=== PATIENT | female | born 1990 | race Caucasian/White ===

== ENCOUNTER 2016-11-18 17:09 | Emergency (ER) | payer OTHER, SELFPAY ==
--- NOTE | 2016-11-18 18:05 | ERPHSYRPT ---
- History of Present Illness Time Seen by Provider: 11/18/16 18:00 Source: patient, family Exam Limitations: no limitations Patient Subjective Stated Complaint: HEADACHE FOR 2 DAYS Triage Nursing Assessment: STATES HAS HAD A LT SIDE HEADACHE FOR 2 DAYS. NAUSEA WITH NO VOMITING. PHOTOSENSITIVITY.POOR APPETITE DUE TO PAIN Physician History: The patient is a 26-year-old female with a history of migraine headaches complaining of a left-sided headache for about 2 days. She's been taking ibuprofen without relief and this morning tried Imitrex without relief. She is nauseated but not vomiting. She says light bothers her. She has no numbness or tingling in the extremities. She had no visual disturbances prior to the headache. Timing/Duration: day(s) (2) Quality: throbbing Head Pain Location: temporal (left), parietal (left) Severity of Pain-Max: moderate Severity of Pain-Current: moderate Recent Head Trauma: occasional headaches Modifying Factors: Improves With: exposure to light, medication Associated Symptoms: sensitive to light Previous symptoms: same symptoms as today Allergies/Adverse Reactions: latex Allergy (Severe, Verified 11/18/16 17:15) STOPPED BREATHING aspirin Adverse Reaction (Mild, Verified 11/18/16 17:15) Vomiting medidate Adverse Reaction (Mild, Uncoded 11/18/16 17:15) VOMTIING Home Medications: Bupropion HCl Xl 150 mg [Wellbutrin XL 150 MG] 150 mg PO DAILY 11/18/16 [ History] Desogestrel-Ethinyl Estradiol [Apri 28 Day Tablet] 1 each PO UD 11/18/16 [ History] Sumatriptan Succinate [Imitrex 50 mg] 50 mg PO UD 11/18/16 [History] Thyroid,Pork [[place] Thyroid] 45 mg PO DAILY 11/18/16 [History] Trazodone HCl 100 mg PO HS 11/18/16 [History] Hx Tetanus, Diphtheria Vaccination/Date Given: Yes Hx Influenza Vaccination/Date Given: No Hx Pneumococcal Vaccination/Date Given: No Immunizations Up to Date: Yes - Review of Systems Constitutional: No Fever, No Chills Eyes: Photophobia Ears, Nose, & Throat: No Symptoms Respiratory: No Cough, No Dyspnea Cardiac: No Chest Pain, No Edema, No Syncope Abdominal/Gastrointestinal: Nausea Genitourinary Symptoms: No Dysuria Musculoskeletal: No Back Pain, No Neck Pain Skin: No Rash Neurological: Headache, No Dizziness, No Focal Weakness, No Sensory Changes Psychological: No Symptoms Endocrine: No Symptoms Hematologic/Lymphatic: No Symptoms Immunological/Allergic: No Symptoms All Other Systems: Reviewed and Negative - Past Medical History Pertinent Past Medical History: Yes Neurological History: Migraines ENT History: No Pertinent History Cardiac History: Arrhythmia, Other Respiratory History: Asthma Endocrine Medical History: Hypothyroidism Musculoskeletal History: No Pertinent History GI Medical History: No Pertinent History History: No Pertinent History Psycho-Social History: Attention Deficit Disorder Female Reproductive Disorders: No Pertinent History Other Medical History: BRADYCARDIA(SEES DR. JAYSON CHANEL) - Past Surgical History Past Surgical History: Yes Neuro Surgical History: No Pertinent History Cardiac: No Pertinent History Respiratory: No Pertinent History Gastrointestinal: No Pertinent History Genitourinary: No Pertinent History Female Surgical History: Section - Social History Smoking Status: Never smoker Exposure to second hand smoke: No Drug Use: none Patient Lives Alone: No - Female History Hx Last Menstrual Period: 10/21/2017 - Nursing Vital Signs Nursing Vital Signs: Initial Vital Signs Temperature 97.5 F Temperature Source Oral Pulse Rate 74 Respiratory Rate 18 Blood Pressure [Right Arm] 122/83 Pain Intensity 7 - Physical Exam General Appearance: mild distress Eye Exam: PERRL/EOMI, photophobia Ears, Nose, Throat Exam: normal ENT inspection, moist mucous membranes Neck Exam: normal inspection, supple, full range of motion, No meningismus Respiratory Exam: normal breath sounds, lungs clear Cardiovascular Exam: regular rate/rhythm, normal heart sounds Gastrointestinal/Abdominal Exam: soft, No tenderness, No distention Back Exam: normal inspection, normal range of motion Extremity Exam: normal inspection Mental Status Exam: alert, oriented x 3, cooperative 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 hot 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 Exam: normal hearing, normal speech, PERRL, No facial droop Coordination/Gait Exam: normal cerebellar function Motor/Sensory Exam: no motor deficit, no sensory deficit Skin Exam: normal color, warm, dry, No rash SpO2 Interpretation: normal Ordered Tests: Medication Summary Discontinued Medications Generic Name Dose Route Start Last Admin Trade Name Freq PRN Reason Stop Dose Admin Ketorolac Tromethamine 60 mg 11/18/16 18:07 11/18/16 18:12 Toradol 30 Mg Injection IM 11/18/16 18:08 60 mg STAT ONE Administration Ketorolac Tromethamine Confirm 11/18/16 18:11 Toradol 30 Mg Injection Administered 11/18/16 18:12 Dose 60 mg .ROUTE .STK-MED ONE Promethazine HCl 50 mg 11/18/16 18:08 11/18/16 18:12 Phenergan 25 Mg Inj IM 11/18/16 18:09 50 mg STAT ONE Administration Promethazine HCl Confirm 11/18/16 18:11 Phenergan 25 Mg Inj Administered 11/18/16 18:12 Dose 50 mg .ROUTE .STK-MED ONE - Progress Progress: improved Air Movement: fair Counseled pt/family regarding: diagnosis, need for follow-up - Departure Time of Disposition: 18:46 Departure Disposition: Home Clinical Impression: Migraine headache Condition: Stable Critical Care Time: No Instructions: Headache
[2016-11-18] MEDS ORDERED: TORAdol 30 mg Injection IM ONE (18:07)
[2016-11-18] MEDS ORDERED: Phenergan 25 MG INJ IM ONE (18:08)
[2016-11-18] MEDS ORDERED: Phenergan 25 MG INJ ONE (18:11)
[2016-11-18] MEDS ORDERED: TORAdol 30 mg Injection ONE (18:11)
[2016-11-18 18:50] VITALS: BP 123/48; PULSE 78
== END 2016-11-18 18:50 | disposition home or self-care (01) ==
LOC: ED 17:09
DX: G43.909 Migraine, unspecified, not intractable, without status migrainosus (principal); R11.0 Nausea; H53.8 Other visual disturbances
CPT/HCPCS: 96372; 99283; J1885; J2550

== ENCOUNTER 2017-02-14 17:37 | Emergency (ER) | payer OTHER, SELFPAY ==
[2017-02-14] MEDS ORDERED: MORPHINE SULFATE 2 MG INJ IV ONE (18:09)
[2017-02-14] MEDS ORDERED: Pepcid 20 MG VIAL IV ONE ×2 (18:09→18:17)
[2017-02-14] MEDS ORDERED: Zofran 4 MG/2 ML VIAL IV ONE (18:09)
[2017-02-14] MEDS ORDERED: MORPHINE SULFATE 2 MG INJ ONE (18:17)
[2017-02-14] MEDS ORDERED: Zofran 4 MG/2 ML VIAL ONE ×2 (18:17→18:21)
--- NOTE | 2017-02-14 18:22 | ERPHSYRPT ---
- History of Present Illness Time Seen by Provider: 02/14/17 18:16 Historian: patient Exam Limitations: no limitations Patient Subjective Stated Complaint: ruq abd for two days. also having some nausea. unable to eat without having pain Triage Nursing Assessment: ambulated to room per self holding ruq abd, crying. skin w/d, color normal, resp easy. abd soft, tender ruq Physician History: RUQ sharp, stabbing pain for past 2 days. States pain is intermittent and worsens with any food intake. Pt. with nausea but no vomiting or diarrhea. No fever, chills, dizziness or weakness. Tried Ibuprofen 800mg with minimal relief. LMP3 01/29/17. Denies any vag bleeding or discharge. Timing/Duration: day(s) (2) Activities at Onset: none Quality: sharpness, stabbing Abdominal Pain Onset Location: RUQ Pain Radiation: no radiation Severity of Pain-Max: moderate Severity of Pain-Current: moderate Modifying Factors: Improves With: eating (worsens) Associated Symptoms: nausea, No fever/chills, No shortness of breath, No vomiting Previous symptoms: no prior history Allergies/Adverse Reactions: latex Allergy (Severe, Verified 02/14/17 17:50) STOPPED BREATHING levothyroxine sodium [From Synthroid] Allergy (Verified 02/14/17 17:50) methylphenidate [From Ritalin] Allergy (Verified 02/14/17 17:50) aspirin Adverse Reaction (Mild, Verified 02/14/17 17:50) Vomiting medidate Adverse Reaction (Mild, Uncoded 11/18/16 17:15) VOMTIING Home Medications: Sumatriptan Succinate [Imitrex 50 mg] 50 mg PO UD 11/18/16 [History] Thyroid,Pork [[place] Thyroid] 60 mg PO DAILY 11/18/16 [History] Phentermine HCl [Adipex-P] 37.5 mg PO DAILY 02/14/17 [History] Hx Tetanus, Diphtheria Vaccination/Date Given: Yes Hx Influenza Vaccination/Date Given: No Hx Pneumococcal Vaccination/Date Given: No - Review of Systems Constitutional: No Fever, No Chills Eyes: No Symptoms Ears, Nose, & Throat: No Symptoms Respiratory: No Cough, No Dyspnea Cardiac: No Chest Pain, No Edema, No Syncope Abdominal/Gastrointestinal: Abdominal Pain, Nausea, No Vomiting, No Diarrhea Genitourinary Symptoms: No Dysuria Musculoskeletal: No Back Pain, No Neck Pain Skin: No Rash Neurological: No Dizziness, No Focal Weakness, No Sensory Changes Psychological: No Symptoms Endocrine: No Symptoms All Other Systems: Reviewed and Negative - Past Medical History Pertinent Past Medical History: Yes Neurological History: Migraines ENT History: No Pertinent History Cardiac History: Arrhythmia, Other Respiratory History: Asthma Endocrine Medical History: Hypothyroidism Musculoskeletal History: No Pertinent History GI Medical History: No Pertinent History History: No Pertinent History Psycho-Social History: Attention Deficit Disorder Female Reproductive Disorders: No Pertinent History Other Medical History: BRADYCARDIA(SEES DR. JAYSON CHANEL) - Past Surgical History Past Surgical History: Yes Neuro Surgical History: No Pertinent History Cardiac: No Pertinent History Respiratory: No Pertinent History Gastrointestinal: No Pertinent History Genitourinary: No Pertinent History Female Surgical History: Section - Social History Smoking Status: Never smoker Exposure to second hand smoke: No Drug Use: none Patient Lives Alone: No Significant Family History: cancer (colon/breast), diabetes, other (Gall bladder disease) - Female History Hx Last Menstrual Period: 01/29/17 Hx Now: No - Nursing Vital Signs Nursing Vital Signs: Initial Vital Signs Temperature 97.8 F Temperature Source Oral Pulse Rate 56 Respiratory Rate 16 Blood Pressure [Right Arm] 125/70 Pain Intensity 8 - Physical Exam General Appearance: no apparent distress, alert Eye Exam: PERRL/EOMI, eyes nml inspection Ears, Nose, Throat Exam: normal ENT inspection, pharynx normal, moist mucous membranes Neck Exam: normal inspection, non-tender, supple, full range of motion Respiratory Exam: normal breath sounds, lungs clear, No respiratory distress Cardiovascular Exam: regular rate/rhythm, normal heart sounds Gastrointestinal/Abdomen Exam: soft, normal bowel sounds, tenderness (RLQ), No mass, No guarding Pelvic Exam: not done Rectal Exam: deferred Back Exam: normal inspection, normal range of motion, No CVA tenderness, No vertebral tenderness Extremity Exam: normal inspection, normal range of motion, pelvis stable Neurologic Exam: alert, oriented x 3, cooperative, normal mood/affect, nml cerebellar function, sensation nml, No motor deficits Skin Exam: normal color, warm, dry SpO2: 100 Oxygen Delivery: Room Air - Course Nursing assessment & vital signs reviewed: Yes - Radiology Exams Abdomen X-ray Interpretation: Interpreted by me, Negative Ordered Tests: Active Orders 24 hr Category Date Time Status IV Insertion STAT Care 02/14/17 18:09 Active OBSTR/ACUTE ABDOMEN SERIES Stat Exams 02/14/17 18:11 Ordered AMYLASE Stat Lab 02/14/17 18:15 Completed CBC W DIFF Stat Lab 02/14/17 18:15 Completed CMP Stat Lab 02/14/17 18:15 Completed HCG QUALITATIVE,SERUM Stat Lab 02/14/17 18:15 Completed LIPASE Stat Lab 02/14/17 18:15 Completed UA Stat Lab 02/14/17 19:05 Completed Medication Summary Generic Name Dose Route Start Last Admin Trade Name Freq PRN Reason Stop Dose Admin Sodium Chloride 1,000 mls @ 999 mls/hr 02/14/17 18:25 02/14/17 18:34 Sodium Chloride 0.9% 1000 Ml IV 02/14/17 19:25 999 mls/hr .Q1H1M STA Administration Discontinued Medications Generic Name Dose Route Start Last Admin Trade Name Freq PRN Reason Stop Dose Admin Famotidine 20 mg 02/14/17 18:09 02/14/17 18:24 Pepcid 20 Mg Vial IV 02/14/17 18:10 20 mg STAT ONE Administration Famotidine Confirm 02/14/17 18:17 Pepcid 20 Mg Vial Administered 02/14/17 18:18 Dose 20 mg IV .STK-MED ONE Hydromorphone HCl 1 mg 02/14/17 19:09 Hydromorphone 1 Mg/Ml Ampule IV 02/14/17 19:10 STAT ONE Sodium Chloride Confirm 02/14/17 18:33 Sodium Chloride 0.9% 1000 Ml Administered 02/14/17 18:34 Dose 1,000 mls @ ud .ROUTE .STK-MED ONE Morphine Sulfate 2 mg 02/14/17 18:09 02/14/17 18:23 Morphine Sulfate 2 Mg Inj IV 02/14/17 18:10 2 mg STAT ONE Administration Morphine Sulfate Confirm 02/14/17 18:17 Morphine Sulfate 2 Mg Inj Administered 02/14/17 18:18 Dose 2 mg .ROUTE .STK-MED ONE Ondansetron HCl 4 mg 02/14/17 18:09 02/14/17 18:24 Zofran 4 Mg/2 Ml Vial IV 02/14/17 18:10 4 mg STAT ONE Administration Ondansetron HCl Confirm 02/14/17 18:17 Zofran 4 Mg/2 Ml Vial Administered 02/14/17 18:18 Dose 4 mg .ROUTE .STK-MED ONE Ondansetron HCl Confirm 02/14/17 18:21 Zofran 4 Mg/2 Ml Vial Administered 02/14/17 18:22 Dose 4 mg .ROUTE .STK-MED ONE Lab/Rad Data: Laboratory Result Diagrams 02/14/17 18:15 02/14/17 18:15 Laboratory Results 02/14/17 02/14/17 02/14/17 Range/Units 19:05 18:15 18:15 WBC (4.0-10.5) K/mm3 RBC (4.1-5.4) M/mm3 Hgb (12.0-16.0) gm/dl Hct (35-47) % MCV (78-100) fl MCH (26-32) pg MCHC (32-36) g/dl RDW (11.5-14.0) % Plt Count (150-450) K/mm3 MPV (6-9.5) fl Gran % (36.0-66.0) % Lymphocytes % (24.0-44.0) % Monocytes % (0.0-12.0) % Eosinophils % (0.00-5.0) % Basophils % (0.0-0.4) % Basophils # (0-0.4) Sodium 141 (136-145) mEq/L Potassium 3.4 L (3.5-5.1) mEq/L Chloride 108 H (98-107) mEq/L Carbon Dioxide 23.1 (21-32) mEq/L Anion Gap 12.9 (5-15) MEQ/L BUN 5 L (9-20) mg/dL Creatinine 0.98 (0.55-1.30) mg/dl Estimated GFR > 60 ML/MIN Glucose 93 (70-110) MG/DL Calcium 8.8 (8.5-10.1) mg/dL Total Bilirubin 0.2 (0.2-1.0) mg/dL AST 22 (15-37) U/L ALT 31 (12-78) U/L Alkaline Phosphatase 58 (46-116) U/L Serum Total Protein 7.0 (6.4-8.2) gm/dL Albumin 3.4 (3.4-5.0) g/dL Amylase 29 (25-115) U/L Lipase 104 (73-393) U/L Serum , Qual NEGATIVE (Negative) Ur Collection Type CLEAN CATCH Urine Color YELLOW (YELLOW) Urine Appearance CLEAR (CLEAR) Urine pH 7.0 (5-6) Ur Specific [place] 1.015 (1.005-1.025) Urine Protein NEGATIVE (Negative) Urine Glucose (UA) NEGATIVE (NEGATIVE) mg/dL Urine Ketones NEGATIVE (NEGATIVE) Urine Nitrite NEGATIVE (NEGATIVE) Urine Bilirubin NEGATIVE (NEGATIVE) Urine Urobilinogen 0.2 (0-1) mg/dL Urine WBC (Auto) NEGATIVE (NEGATIVE) Urine RBC (Auto) NEGATIVE (0-5) Re[place]undo/ul Specimen Received 02/14/17:1905 02/14/17 Range/Units 18:15 WBC 9.4 (4.0-10.5) K/mm3 RBC 5.20 (4.1-5.4) M/mm3 Hgb 13.4 (12.0-16.0) gm/dl Hct 40.9 (35-47) % MCV 78.7 (78-100) fl MCH 25.8 L (26-32) pg MCHC 32.8 (32-36) g/dl RDW 13.5 (11.5-14.0) % Plt Count 252 (150-450) K/mm3 MPV 10.3 H (6-9.5) fl Gran % 78.4 H (36.0-66.0) % Lymphocytes % 14.1 L (24.0-44.0) % Monocytes % 7.3 (0.0-12.0) % Eosinophils % 0.1 (0.00-5.0) % Basophils % 0.1 (0.0-0.4) % Basophils # 0.01 (0-0.4) Sodium (136-145) mEq/L Potassium (3.5-5.1) mEq/L Chloride (98-107) mEq/L Carbon Dioxide (21-32) mEq/L Anion Gap (5-15) MEQ/L BUN (9-20) mg/dL Creatinine (0.55-1.30) mg/dl Estimated GFR ML/MIN Glucose (70-110) MG/DL Calcium (8.5-10.1) mg/dL Total Bilirubin (0.2-1.0) mg/dL AST (15-37) U/L ALT (12-78) U/L Alkaline Phosphatase (46-116) U/L Serum Total Protein (6.4-8.2) gm/dL Albumin (3.4-5.0) g/dL Amylase (25-115) U/L Lipase (73-393) U/L Serum , Qual (Negative) Ur Collection Type Urine Color (YELLOW) Urine Appearance (CLEAR) Urine pH (5-6) Ur Specific [place] (1.005-1.025) Urine Protein (Negative) Urine Glucose (UA) (NEGATIVE) mg/dL Urine Ketones (NEGATIVE) Urine Nitrite (NEGATIVE) Urine Bilirubin (NEGATIVE) Urine Urobilinogen (0-1) mg/dL Urine WBC (Auto) (NEGATIVE) Urine RBC (Auto) (0-5) Reymundo/ul Specimen Received - Progress Progress: improved Progress Note: 02/14/17 19:15 Pt. given Morphine, Pepcid and Zofran that provided some relief. Pt given Dilaudid with good relief of abd pain. Counseled pt/family regarding: lab results, diagnosis, rad results - Departure Time of Disposition: 19:39 Departure Disposition: Home Clinical Impression: Abdominal pain Condition: Stable Critical Care Time: No Instructions: Abdominal Pain-Adult Additional Instructions: [place] diet, no greasy, fatty or fried foods RX: Pepcid, [place], Zofran Return for worse abdominal pain, fever, vomiting or any problems. Prescriptions: Hydrocodone Bit/Acetaminophen [[place] 5-325 Tablet] 1 each PO Q6H PRN PRN #12 tablet PRN Reason: Pain Ondansetron [Zofran Odt] 4 mg PO Q6H PRN PRN #10 tab.rapdis PRN Reason: Nausea/Vomiting Famotidine 20 mg [Pepcid 20 MG] 20 mg PO BID #20 tablet
[2017-02-14] MEDS ORDERED: Sodium Chloride 0.9% 1000 ML 1,000 ML IV STA (18:25)
[2017-02-14 18:28] LABS: BASOPHIL % 0.1 % (0.0-0.4); Eosinophil % 0.1 % (0.00-5.0); Granulocytes % 78.4 % (36.0-66.0); Lymphocytes % 14.1 % (24.0-44.0); Mean Cell Volume 78.7 fl (78-100); Mean Corpuscular Hemoglobin 25.8 pg (26-32); Mean Platelet Volume 10.3 fl (6-9.5); Monocytes % 7.3 % (0.0-12.0); Platelet Count 252 K/mm3 (150-450); Red Cell Distribution Width 13.5 % (11.5-14.0); White Blood Count 9.4 K/mm3 (4.0-10.5)
[2017-02-14] MEDS ORDERED: Sodium Chloride 0.9% 1000 ML 1,000 ML ONE (18:33)
[2017-02-14 18:47] LABS: ALBUMIN 3.4 g/dL (3.4-5.0); ALKALINE PHOSPHATASE 58 U/L (46-116); ANION GAP 12.9 MEQ/L (5-15); BILIRUBIN,TOTAL 0.2 mg/dL (0.2-1.0); BLOOD UREA NITROGEN 5 mg/dL (9-20); CHLORIDE 108 mEq/L (98-107); Carbon Dioxide 23.1 mEq/L (21-32); Glucose 93 MG/DL (70-110); LIPASE 104 U/L (73-393); Potassium 3.4 mEq/L (3.5-5.1); SGOT/AST 22 U/L (15-37); SGPT/ALT 31 U/L (12-78); SODIUM 141 mEq/L (136-145)
[2017-02-14] MEDS ORDERED: Hydromorphone 1 mg/ml Ampule IV ONE (19:09)
[2017-02-14] MEDS ORDERED: Hydromorphone 1 mg/ml Ampule ONE (19:12)
[2017-02-14 19:14] LABS: COMPLETE URINE MICROSCOPIC? NO; Collection Type CLEAN CATCH
[2017-02-14 19:57] VITALS: BP 144/72; PULSE 56; O2SAT 99
--- NOTE | 2017-02-15 08:54 | XRAY ---
Exam: Acute obstructive series from 02/14/2017. Comparison: CT of the chest with IV contrast from 09/25/[address] of the abdomen and pelvis without IV contrast from 06/16/2015. Indication: Right upper quadrant abdominal pain 2 days, history of . Findings: Upright frontal chest film reveals a normal heart size. The mayra and mediastinal structures appear unremarkable. The lung shields are clear. Pulmonary vascularity is normal. No pneumothorax, pleural fluid, or free intraperitoneal air underneath the hemidiaphragms seen. The bones appear intact. 2 supine images of the abdomen and upright image of the abdomen were obtained. The bowel gas pattern appears nonspecific. Mild to moderate colonic stool burden is seen. No bowel distention or free intraperitoneal air is seen. No hepatosplenomegaly is seen. Some costochondral calcification is seen adjacent to the lower anterior ribs bilaterally. There appears to be a partial transitional vertebra at the lumbosacral junction. The remainder of the bones appear unremarkable. Impression: 1. No acute cardiopulmonary disease is seen. 2. Nonobstructive bowel gas pattern with mild to moderate scattered colonic stool retention. No free intraperitoneal air is seen.
== END 2017-02-14 19:55 | disposition home or self-care (01) ==
LOC: ED 17:37
DX: R10.11 Right upper quadrant pain (principal); R11.0 Nausea
CPT/HCPCS: 36000; 36415; 74022; 80053; 81002; 82150; 83690; 84703; 85025; 96360; 96361; 96374; 96375; 99284; J1170; J2270; J2405

== ENCOUNTER 2017-02-15 16:14 | Observation (INO) | payer OTHER ==
[2017-02-15] MEDS ORDERED: Hydromorphone 1 mg/ml Ampule IV ONE ×2 (17:09→19:29)
[2017-02-15] MEDS ORDERED: Sodium Chloride 0.9% 1000 ML 1,000 ML IV STA (17:09)
[2017-02-15] MEDS ORDERED: BENADRYL 50 MG/ML IV ONE ×2 (17:09→19:29)
--- NOTE | 2017-02-15 17:15 | ERPHSYRPT ---
- History of Present Illness Time Seen by Provider: 02/15/17 17:03 Historian: patient Patient Subjective Stated Complaint: PT HERE FOR ABD PAIN, RIGHT SIDED FOR 4 DAYS, NAUSEA, NO VOMITING, NO PROBLEMS WITH BOWEL OR BLADDER NO FEVER Triage Nursing Assessment: PT WAS SEEN LAST NIGHT FOR SAME THING, AND HAS US OF GALLBLADDER THIS AM Physician History: CC: abd pain Hx: 26 y/o patient of Dr Maradiaga. She has 4 day hx of abd pain, right sided. N/ V. Unable to eat or drink. Pain severe. No fever. Normal urination. Was in ER yesterday with normal labs and AAS. She had negative GB sonogram as OP this AM. Came back as pain severe, sharp. Timing/Duration: day(s) (4) Severity of Pain-Max: severe Severity of Pain-Current: severe Allergies/Adverse Reactions: latex Allergy (Severe, Verified 02/15/17 16:29) STOPPED BREATHING levothyroxine sodium [From Synthroid] Allergy (Verified 02/15/17 16:29) methylphenidate [From Ritalin] Allergy (Verified 02/15/17 16:29) aspirin Adverse Reaction (Mild, Verified 02/15/17 16:29) Vomiting medidate Adverse Reaction (Mild, Uncoded 02/15/17 16:29) VOMTIING Home Medications: Sumatriptan Succinate [Imitrex 50 mg] 50 mg PO UD 11/18/16 [History] Thyroid,Pork [[place] Thyroid] 60 mg PO DAILY 11/18/16 [History] Phentermine HCl [Adipex-P] 37.5 mg PO DAILY 02/14/17 [History] Hx Tetanus, Diphtheria Vaccination/Date Given: Yes Hx Influenza Vaccination/Date Given: No Hx Pneumococcal Vaccination/Date Given: No Immunizations Up to Date: Yes - Review of Systems Constitutional: No Fever, No Chills Eyes: No Symptoms Ears, Nose, & Throat: No Symptoms Respiratory: No Cough Cardiac: No Chest Pain Abdominal/Gastrointestinal: Abdominal Pain, Nausea, Vomiting, No Diarrhea Genitourinary Symptoms: No Dysuria Musculoskeletal: No Back Pain Skin: No Rash Neurological: No Headache All Other Systems: Reviewed and Negative - Past Medical History Pertinent Past Medical History: Yes Neurological History: Migraines ENT History: No Pertinent History Cardiac History: Arrhythmia, Other Respiratory History: Asthma Endocrine Medical History: Hypothyroidism Musculoskeletal History: No Pertinent History GI Medical History: No Pertinent History History: No Pertinent History Psycho-Social History: Attention Deficit Disorder Female Reproductive Disorders: No Pertinent History Other Medical History: Bradycardia - Past Surgical History Past Surgical History: Yes Neuro Surgical History: No Pertinent History Cardiac: No Pertinent History Respiratory: No Pertinent History Gastrointestinal: No Pertinent History Genitourinary: No Pertinent History Female Surgical History: Section - Social History Smoking Status: Never smoker Exposure to second hand smoke: No Drug Use: none Patient Lives Alone: No Significant Family History: cancer (colon/breast), diabetes, other (Gall bladder disease) - Female History Hx Last Menstrual Period: JANUARY 29 Hx Now: No - Nursing Vital Signs Nursing Vital Signs: Initial Vital Signs Temperature 97.6 F Temperature Source Oral Pulse Rate 83 Respiratory Rate 18 Blood Pressure [] 131/71 Pain Intensity 7 - Physical Exam General Appearance: alert, obese, other (tearful and anxious) Eye Exam: PERRL/EOMI Ears, Nose, Throat Exam: normal ENT inspection, moist mucous membranes Neck Exam: normal inspection, non-tender, supple Respiratory Exam: normal breath sounds, lungs clear Cardiovascular Exam: regular rate/rhythm Gastrointestinal/Abdomen Exam: soft, tenderness (right), guarding (right) Extremity Exam: normal inspection, normal range of motion Neurologic Exam: alert, oriented x 3, cooperative, sensation nml, No motor deficits Skin Exam: warm, dry, No rash SpO2 Interpretation: normal SpO2: 99 - Course Nursing assessment & vital signs reviewed: Yes - CT Exams abd/pelvis CT Interpretation: Negative, Tele-radiologist Report, Normal Appendix Ordered Tests: Active Orders 24 hr Category Date Time Status IV Insertion STAT Care 02/15/17 17:09 Active NPO (ED) STAT Care 02/15/17 17:09 Active ABDOMEN AND PELVIS W CONTRAST [CT] Stat Exams 02/15/17 17:10 Taken CBC W DIFF Stat Lab 02/15/17 18:05 Completed CMP Stat Lab 02/15/17 17:29 Completed LIPASE Stat Lab 02/15/17 17:29 Completed Lactic Acid Urgent Lab 02/15/17 17:35 Completed Medication Summary Discontinued Medications Generic Name Dose Route Start Last Admin Trade Name Freq PRN Reason Stop Dose Admin Diphenhydramine HCl 25 mg 02/15/17 17:09 02/15/17 17:21 Benadryl 50 Mg/Ml IV 04/17/17 17:10 25 mg STAT ONE Administration Diphenhydramine HCl Confirm 02/15/17 17:16 Benadryl 50 Mg/Ml Administered 02/15/17 17:17 Dose 50 mg .ROUTE .STK-MED ONE Hydromorphone HCl 1 mg 02/15/17 17:09 02/15/17 17:21 Hydromorphone 1 Mg/Ml Ampule IV 02/15/17 17:10 1 mg STAT ONE Administration Hydromorphone HCl Confirm 02/15/17 17:16 Hydromorphone 1 Mg/Ml Ampule Administered 02/15/17 17:17 Dose 1 mg .ROUTE .STK-MED ONE Sodium Chloride 1,000 mls @ 999 mls/hr 02/15/17 17:09 02/15/17 17:21 Sodium Chloride 0.9% 1000 Ml IV 02/15/17 18:09 999 mls/hr .Q1H1M STA Administration Sodium Chloride Confirm 02/15/17 17:16 Sodium Chloride 0.9% 1000 Ml Administered 02/15/17 17:17 Dose 1,000 mls @ ud .ROUTE .STK-MED ONE Lab/Rad Data: Laboratory Result Diagrams 02/15/17 18:05 02/15/17 17:29 Laboratory Results 02/15/17 02/15/17 02/15/17 Range/Units 18:05 17:35 17:29 WBC 5.7 (4.0-10.5) K/mm3 RBC 4.62 (4.1-5.4) M/mm3 Hgb 12.0 (12.0-16.0) gm/dl Hct 37.6 (35-47) % MCV 81.4 (78-100) fl MCH 26.0 (26-32) pg MCHC 31.9 L (32-36) g/dl RDW 13.5 (11.5-14.0) % Plt Count 196 (150-450) K/mm3 MPV 10.1 H (6-9.5) fl Gran % 52.9 (36.0-66.0) % Lymphocytes % 37.9 (24.0-44.0) % Monocytes % 7.4 (0.0-12.0) % Eosinophils % 1.6 (0.00-5.0) % Basophils % 0.2 (0.0-0.4) % Basophils # 0.01 (0-0.4) Sodium 142 (136-145) mEq/L Potassium 3.1 L (3.5-5.1) mEq/L Chloride 106 (98-107) mEq/L Carbon Dioxide 25.3 (21-32) mEq/L Anion Gap 13.5 (5-15) MEQ/L BUN 9 (9-20) mg/dL Creatinine 0.82 (0.55-1.30) mg/dl Estimated GFR > 60 ML/MIN Glucose 92 (70-110) MG/DL Lactic Acid 1.2 (0.4-2.0) Calcium 8.2 L (8.5-10.1) mg/dL Total Bilirubin 0.2 (0.2-1.0) mg/dL AST 16 (15-37) U/L ALT 25 (12-78) U/L Alkaline Phosphatase 54 (46-116) U/L Serum Total Protein 6.3 L (6.4-8.2) gm/dL Albumin 3.0 L (3.4-5.0) g/dL Lipase 134 (73-393) U/L - Progress Progress Note: 02/15/17 17:[address] abd to rule out appendicitis. 02/15/17 18:52 CT, RUQ sonogram, labs reassuring. She is tearful and crying at times with some emotional overlay. Family here. She has appt with Dr Maradiaga already established for 9AM tomorrow. Paged Dr Maradiaga. 02/15/17 19:[address] Maradiaga. Apparently patient has been at other emergency rooms as well. He advised observation, NPO, consult surgeons. Counseled pt/family regarding: lab results, diagnosis, need for follow-up, rad results - Departure Time of Disposition: 19:29 Departure Disposition: Observation Clinical Impression: Right sided abdominal pain Condition: Fair Critical Care Time: No Referrals: YESICA MARADIAGA MD [Primary Care Provider] - Instructions: Abdominal Pain-Adult
[2017-02-15] MEDS ORDERED: Hydromorphone 1 mg/ml Ampule ONE ×2 (17:16→19:45)
[2017-02-15] MEDS ORDERED: Sodium Chloride 0.9% 1000 ML 1,000 ML ONE (17:16)
[2017-02-15] MEDS ORDERED: BENADRYL 50 MG/ML ONE ×2 (17:16→19:45)
[2017-02-15 17:47] LABS: ALKALINE PHOSPHATASE 54 U/L (46-116); ANION GAP 13.5 MEQ/L (5-15); BILIRUBIN,TOTAL 0.2 mg/dL (0.2-1.0); BLOOD UREA NITROGEN 9 mg/dL (9-20); CHLORIDE 106 mEq/L (98-107); Carbon Dioxide 25.3 mEq/L (21-32); Glucose 92 MG/DL (70-110); LIPASE 134 U/L (73-393); Potassium 3.1 mEq/L (3.5-5.1); SGOT/AST 16 U/L (15-37); SGPT/ALT 25 U/L (12-78); SODIUM 142 mEq/L (136-145); Total Protein 6.3 gm/dL (6.4-8.2)
[2017-02-15 18:08] LABS: BASOPHIL % 0.2 % (0.0-0.4); Eosinophil % 1.6 % (0.00-5.0); Granulocytes % 52.9 % (36.0-66.0); Lymphocytes % 37.9 % (24.0-44.0); Mean Cell Volume 81.4 fl (78-100); Mean Platelet Volume 10.1 fl (6-9.5); Monocytes % 7.4 % (0.0-12.0); Platelet Count 196 K/mm3 (150-450); Red Blood Count 4.62 M/mm3 (4.1-5.4); Red Cell Distribution Width 13.5 % (11.5-14.0); White Blood Count 5.7 K/mm3 (4.0-10.5)
[2017-02-15] MEDS: Dextrose 5%-Lr IV Solution 1000 ML 1,000 ML IV SCH (20:25)
[2017-02-15] MEDS: Pepcid 20 MG VIAL IV SCH (22:03)
[2017-02-15] MEDS: Klor Con 10 MEQ PO SCH (22:03)
[2017-02-15] MEDS ORDERED: PROVENTIL 2.5 MG/3 ML NEB IH PRN (22:49)
[2017-02-15] MEDS: MORPHINE SULFATE 2 MG INJ IV PRN (23:00)
[2017-02-15] MEDS: Zofran 4 MG/2 ML VIAL IV PRN (23:00)
[2017-02-16] MEDS: MORPHINE SULFATE 2 MG INJ IV PRN ×2 (03:13→09:03)
[2017-02-16] MEDS: NORCO 5/325 MG PO PRN (05:17)
[2017-02-16] MEDS: Dextrose 5%-Lr IV Solution 1000 ML 1,000 ML IV SCH (06:21)
[2017-02-16] MEDS ORDERED: PYRIDOXINE PO PRN (07:02)
[2017-02-16] MEDS ORDERED: MELATONIN PO PRN (07:02)
[2017-02-16] MEDS ORDERED: ZOFRAN ODT 4 MG PO PRN (07:02)
[2017-02-16] MEDS ORDERED: MEDICATION INTERVENTION MC SCH ×3 (07:15)
[2017-02-16] MEDS ORDERED: NON-FORMULARY ITEM (Sumatriptan Succinate [Imitrex 50 Mg] 50 MG) PO SCH (07:15)
[2017-02-16] MEDS: Klor Con 10 MEQ PO SCH ×2 (08:57→21:21)
[2017-02-16] MEDS: Pepcid 20 MG VIAL IV SCH ×2 (08:58→21:21)
[2017-02-16] MEDS: Zofran 4 MG/2 ML VIAL IV PRN ×3 (09:03→23:21)
[2017-02-16] MEDS ORDERED: THYROID PORK 60 MG PO SCH (10:00)
--- NOTE | 2017-02-16 10:30 | XRAY ---
Exam: CT of the abdomen and pelvis with IV contrast from 02/15/2017. CTDI: 23.68 Indication: Right-sided abdominal pain 4 days with nausea/vomiting, history of polycystic ovarian syndrome, family history of gallbladder issues. Past history of renal stone. CT of the abdomen and pelvis without IV contrast from 06/16/2015. Technique: Post-IV contrast axial images were obtained through the abdomen and pelvis during automated injection of 80 cc of Isovue-370 contrast material. No oral contrast was given. Reconstructed coronal and sagittal images were created and reviewed. Findings: The lung bases appear clear. The liver is of normal size. There is a subtle decreased focal attenuation noted adjacent to the falciform ligament anteriorly which is believed to be due to some minimal focal fat deposition which is not unusual. Otherwise, the liver appears unremarkable revealing no mass or ductal distention. The gallbladder is mildly distended and reveals no dense calcifications within it. The spleen measures 13.2 cm in greatest cross-sectional diameter which is unchanged and consistent with mild splenomegaly. No focal splenic mass is seen. The adrenal glands and pancreas appear unremarkable. There is noted to be a focal contour bulge along the lateral aspect of the lower pole of the left kidney which in retrospect is unchanged from 06/16/2015 and is believed to be due to a normal lobulation. No suspicious renal calculi, hydronephrosis, or renal mass is seen. The ureters appear of normal diameter and reveal no ureterolith. No urinary bladder stone is seen. Both kidneys excrete contrast on delayed images. The abdominal aorta is of normal diameter. No abnormal retroperitoneal lymphadenopathy is seen. The anterior abdominal wall appears intact. There is abundant intraperitoneal and subcutaneous fat. No free intraperitoneal air is seen. The bowel is not distended. Scattered stool is seen throughout the colon. The appendix appears normal within the right lower quadrant. Within the pelvis, the uterus is anteflexed and tilted to the right of midline. Both ovaries are mildly prominent, but considered within normal limits of size. There appears to be an oval-shaped 3.0 cm x 2.3 cm dominant follicle or small cyst within the right ovary on coronal image #70. This measures +3.0 Hounsfield units. In addition, there is a small amount of free fluid within the cul-de-sac. The cyst may be leaking. The urinary bladder appears unremarkable. Enlarged pelvic lymph nodes are not seen. The bones reveal no acute fracture or aggressive bone lesion. Impression: 1. I note a 3.0 cm x 2.3 cm cyst within the right ovary, best demonstrated on axial image #74. There is also a small amount of free intraperitoneal fluid within the pelvis. The right ovarian cyst may be leaking. The left ovary appears unremarkable. I spoke with the emergency Department personnel concerning this at approximately 10 AM on 02/16/2017. 2. Mild splenomegaly, no change. 3. Normal appendix. 4. No renal/ureteral calculi or obstructive uropathy is seen. 5. No other acute process is seen within the abdomen or pelvis.
--- NOTE | 2017-02-16 11:47 | PCM.HP ---
History of Present Illness - Chief Complaint Chief Complaint: Rt abdominal pain for 1 week History of Present Illness: is a 26 year old female.26 y/o patient of Dr Grove. She has 4 day hx of abd pain, right sided. N/V. Unable to eat or drink. Pain severe. No fever. Normal urination. Was in ER yesterday with normal labs and AAS. She had negative GB sonogram as OP this AM. Came back as pain severe, sharp - Review of Systems Constitutional: No Fever, No Chills Eyes: No Symptoms Ears, Nose, & Throat: No Symptoms Respiratory: No Cough, No Short Of Breath Cardiac: No Chest Pain, No Edema, No Syncope Abdominal/Gastrointestinal: Abdominal Pain, No Nausea, No Vomiting, No Diarrhea Genitourinary Symptoms: No Dysuria Musculoskeletal: No Back Pain, No Neck Pain Skin: No Rash Neurological: No Dizziness, No Focal Weakness, No Sensory Changes Psychological: No Symptoms Endocrine: No Symptoms Hematologic/Lymphatic: No Symptoms Immunological/Allergic: No Symptoms Medications & Allergies Home Medications: Home Medication List Sumatriptan Succinate [Imitrex 50 mg] 50 mg PO UD 11/18/16 [History Confirmed ] Thyroid,Pork [[place] Thyroid] 60 mg PO DAILY 11/18/16 [History Confirmed ] Famotidine 20 mg [Pepcid 20 MG] 20 mg PO BID #20 tablet 02/14/17 [Rx Confirmed 02/15/17] Hydrocodone Bit/Acetaminophen [[place] 5-325 Tablet] 1 each PO Q6H PRN PRN #12 tablet 02/14/17 [Rx Confirmed 02/15/17] Ondansetron [Zofran Odt] 4 mg PO Q6H PRN PRN #10 tab.rapdis 02/14/17 [Rx Confirmed 02/15/17] Phentermine HCl [Adipex-P] 37.5 mg PO DAILY 02/14/17 [History Confirmed 02/15/17 ] Albuterol 2.5 mg/3 ml Neb [Proventil 2.5 mg/3 ml Neb] 1 each IH Q4H PRN PRN 02/15/17 [History Confirmed 02/15/17] Albuterol 8 gm Mdi Hfa [Ventolin Hfa MDI] 8 gm IH Q4H PRN PRN 02/15/17 [ History Confirmed 02/15/17] Melatonin/Pyridoxine [Melatonin 3 mg Tablet] 2 each PO HS PRN PRN 02/15/17 [ History Confirmed 02/15/17] Allergies/Adverse Reactions: Allergies Allergy/AdvReac Type Severity Reaction Status Date / Time latex Allergy Severe STOPPED Verified 02/15/17 16:29 BREATHING levothyroxine sodium Allergy Verified 02/15/17 16:29 [From Synthroid] methylphenidate Allergy Verified 02/15/17 16:29 [From Ritalin] aspirin AdvReac Mild Vomiting Verified 02/15/17 16:29 medidate AdvReac Mild VOMTIING Uncoded 02/15/17 16:29 - Past Medical History Past Medical History: Yes Neurological History: Migraines ENT History: No Pertinent History Cardiac History: Arrhythmia, Other Respiratory History: Asthma Endocrine Medical History: Hypothyroidism Musculoskelatal History: No Pertinent History GI Medical History: No Pertinent History History: No Pertinent History Pyscho-Social History: Attention Deficit Disorder Reproductive Disorders: No Pertinent History Comment: Bradycardia, hypotension (usual 90s/60s) - Female History Hx Last Menstrual Period: JANUARY 29 Are you now?: No - Past Surgical History Past Surgical History: Yes Neuro Surgical History: No Pertinent History Cardiac History: No Pertinent History Respiratory Surgery: No Pertinent History GI Surgical History: No Pertinent History Genitourinary Surgical Hx: No Pertinent History Female Surgical History: Section - Social History Smoking Status: Former smoker Exposure to second hand smoke: No Alcohol: Rarely Drug Use: none Significant Family History: cancer (colon/breast), diabetes, other (Gall bladder disease) - Physical Exam Vital Signs: Vital Signs - 24 hr Temp Pulse Resp BP Pulse Ox 02/16/17 07:26 98.4 F 48 L 20 121/59 98 02/16/17 04:00 98.0 F 64 17 121/57 96 02/16/17 00:00 98.0 F 73 19 163/72 98 02/15/17 22:50 83 14 98 02/15/17 20:28 97.8 F 80 19 159/86 97 02/15/17 20:00 81 16 130/83 98 02/15/17 19:29 99 02/15/17 18:51 83 18 131/71 98 04/17/17 18:04 70 16 131/55 98 02/15/17 16:28 97.6 F 77 18 138/81 99 General Appearance: no apparent distress, alert Neurologic Exam: alert, oriented x 3, cooperative, normal mood/affect, nml cerebellar function, nml station & gait, sensation nml, No motor deficits Eye Exam: PERRL/EOMI, eyes nml inspection Ears, Nose, Throat Exam: normal ENT inspection, TMs normal, pharynx normal, moist mucous membranes Neck Exam: normal inspection, non-tender, supple, full range of motion Respiratory Exam: normal breath sounds, lungs clear, No respiratory distress Cardiovascular Exam: regular rate/rhythm, normal heart sounds, normal peripheral pulses Gastrointestinal/Abdomen Exam: soft, normal bowel sounds, No tenderness, No mass Back Exam: normal inspection, normal range of motion, No CVA tenderness, No vertebral tenderness Extremity Exam: normal inspection, normal range of motion, pelvis stable Skin Exam: normal color, warm, dry, No rash Lymphatic Exam: No adenopathy Results - Other Procedures and Tests Respiratory Therapy 02/15/17 22:50 Flutter Therapy UD Respiratory Nebulizer UD Assessment/Plan (1) Right sided abdominal pain Current Visit: Yes Status: Acute Assessment & Plan: IV fluids, continue present management, surgery consult, EGD tommorow Code(s): R10.9 - UNSPECIFIED ABDOMINAL PAIN
[2017-02-16] MEDS: SUBLIMAZE 100 MCG/2 ML IV PRN ×2 (13:29→20:11)
[2017-02-16] MEDS: Phenergan 25 MG INJ IV PRN ×2 (13:30→20:14)
[2017-02-16] MEDS: Lactated Ringers 1,000 ML IV SCH (16:12)
[2017-02-16] MEDS ORDERED: Golytely Solution 4000 ML PO ONE (17:00)
[2017-02-17] MEDS: SUBLIMAZE 100 MCG/2 ML IV PRN ×3 (02:57→17:09)
[2017-02-17] MEDS: Phenergan 25 MG INJ IV PRN ×4 (03:00→21:38)
--- NOTE | 2017-02-17 08:39 | CONS ---
CONSULT DATE: 02/16/2017 HISTORY: The patient is a 26 year-old who had some right-sided abdominal pain the past week associated with nausea. She had ultrasound negative for cholelithiasis. She had improved some in the hospital. She had a HIDA scan ordered for . HIDA could not be done today so I scheduled her . Dr. Grove asked us to see her to follow the right upper quadrant pain, eventual HIDA. He requests consideration of upper and lower endoscopy to rule out other etiology. PAST MEDICAL HISTORY: She has some hypothyroidism. She has history of migraines. Attention deficit disorder. PAST SURGICAL HISTORY: section. MEDICATIONS: She has been on Imitrex, [place] Thyroid, Pepcid, [place], Zofran, Adipex, Proventil for chronic obstructive pulmonary disease, Ventolin, Melatonin. ALLERGIES: NKDA. FAMILY HISTORY: Heart disease in her family. Colon and breast cancer, diabetes. SOCIAL HISTORY: She denies smoking or alcohol abuse. The patient is a former smoker. REVIEW OF SYSTEMS: Twelve systems reviewed per admission assessment. No chest pain or palpitations currently. PHYSICAL EXAMINATION: GENERAL: No acute distress. HEENT: Sclera nonicteric. NECK: No JVD. CHEST: Equal excursion, nonlabored breathing. CVS: Regular rate and rhythm. ABDOMEN: Soft. Tender in right upper quadrant. No peritoneal signs. EXTREMITIES: No significant edema. NEURO: Alert, moving extremities grossly symmetrically. LAB DATA AND TESTS: Liver function test within normal limits. White blood cell count 5,000. IMPRESSION: Right upper quadrant pain, nausea could be biliary colic, chronic cholecystitis versus peptic ulcer disease, celiac disease or duodenitis versus colitis or other etiology. Either way Dr. Grove has requested consideration to rule out upper and lower GI source. Dr. Millicent Mcclellan is here doing cases in the morning. She has agreed to proceed. Risk of the procedure explained in detail but not limited to bleeding or infection, risk of bowel injury or perforation possibly requiring open procedure, risk of missed or nondiagnosis or incomplete exam possibly requiring barium enema, other studies or procedures, general risk of anesthesia or sedation but not limited to. She understands and agrees to the planned procedure. Also have HIDA scan pending to rule out biliary dyskinesia, chronic cholecystitis on . Dr. Millicent Mcclellan will proceed with EGD and colonoscopy tomorrow. Thank you for the consult.
[2017-02-17] MEDS ORDERED: Lactated Ringers 1,000 ML IV ONE (09:21)
[2017-02-17] MEDS: Klor Con 10 MEQ PO SCH ×2 (10:56→21:30)
[2017-02-17] MEDS: Pepcid 20 MG VIAL IV SCH ×2 (10:56→21:30)
[2017-02-17] MEDS: Dextrose 5%-Lr IV Solution 1000 ML 1,000 ML IV SCH (11:17)
--- NOTE | 2017-02-17 12:14 | PROG NOTE ---
DATE: 02/17/2017 Chart is reviewed and events noted. The patient underwent EGD and colonoscopy earlier today. EGD showed gastritis, small hiatal hernia. Colonoscopy showed inflamed, friable cecum/ascending colon. Post-procedure she has been placed NPO by surgery. At the time of this evaluation the patient is alert, awake, comfortable, complains of mild nausea, complains right upper abdominal pain. Appears comfortable. PHYSICAL EXAMINATION: VITAL SIGNS: Blood pressure 130/71, heart rate 63, respiratory rate 16, temperature 98F. Oxygen saturation 98%. HEENT: No pallor or icterus is noted. NECK: No JVD is present. CVS: S1, S2 present. RESPIRATORY: Breath sounds are bilaterally diminished and clear to auscultation. ABDOMEN: Obese, soft, right upper quadrant tenderness present. No guarding or rigidity. NEURO: She is alert, oriented x3. EXTREMITIES: No edema on bilateral lower extremities. LABORATORY DATA AND TESTS: There were no new labs today. Medications were reviewed. ASSESSMENT: A 26 year old woman with impression: 1) Abdominal pain, right upper quadrant. 2) Inflamed cecum on colonoscopy. 3) Hypothyroidism. 4) Asthma. PLAN: As per surgery the patient will continue NPO, will continue to follow up labs. Also, the patient was placed on proton pump inhibitors. Further management of her abdominal pain per surgery recommendations. Continue PRN Phenergan. Will obtain repeat labs in the a.m. The patient's clinical condition, work-up results and plan of management as outlined above was discussed with the patient. She seems to be in understanding and agreement. Discussed with covering nurse for patient, Ira.
[2017-02-17] MEDS: Protonix 40MG Tablet PO SCH (13:25)
[2017-02-17] MEDS ORDERED: Ketamine HCl 50 MG/ML IV ONE (13:44)
[2017-02-17] MEDS ORDERED: TYLENOL 325 MG PO PRN (18:56)
[2017-02-17] MEDS: NORCO 5/325 MG PO PRN (20:04)
[2017-02-18 05:43] LABS: Mean Cell Volume 77.7 fl (78-100); Mean Corpuscular Hemoglobin 25.6 pg (26-32); Mean Platelet Volume 9.9 fl (6-9.5); Platelet Count 239 K/mm3 (150-450); Red Blood Count 5.42 M/mm3 (4.1-5.4); Red Cell Distribution Width 12.8 % (11.5-14.0)
[2017-02-18] MEDS: Lactated Ringers 1,000 ML IV SCH (05:55)
[2017-02-18 06:07] LABS: ANION GAP 10.8 MEQ/L (5-15); BLOOD UREA NITROGEN 7 mg/dL (9-20); CHLORIDE 104 mEq/L (98-107); Carbon Dioxide 26.1 mEq/L (21-32); Glucose 85 MG/DL (70-110); Potassium 3.9 mEq/L (3.5-5.1); SODIUM 137 mEq/L (136-145)
--- NOTE | 2017-02-18 08:25 | OP ---
PROCEDURE DATE/TIME: 02/17/2017929 PREOPERATIVE DIAGNOSIS: Abdominal pain, nausea. POSTOPERATIVE DIAGNOSES: 1) Mild gastritis. 2) Ascending colon mild colitis. PROCEDURES: 1) EGD with biopsy. 2) Colonoscopy with biopsy. PROCEDURE PERFORMED BY: Millicent Mcclellan M.D. COMPLICATIONS: None. ESTIMATED BLOOD LOSS: Minimal less than 10 cc. ANESTHESIA: MAC. SPECIMEN: Antral biopsy; rule Helicobacter pylori and ascending colon biopsy for colitis. HISTORY: This is a 26 year-old female who has been having abdominal pain. It was most significant in the right upper quadrant and right mid abdomen but she does have some slightly more central epigastric pain as well. The pain has started to worsen in severity and she has had some nausea also. She is being worked up for this pain and we have been consulted for EGD and colonoscopy and she does also have a HIDA scan pending to further look into her gallbladder. I saw the patient personally and we discussed all the risks, benefits, alternatives and procedure details regarding EGD and colonoscopy. She understands and wants to proceed. DESCRIPTION OF PROCEDURE: She was then taken to the operative suite. Anesthesia was induced and she was laid in the left lateral decubitus position. A complete time out was performed. The scope was entered into the mouth, oropharynx and down into the esophagus and then into the stomach. The patient has mild gastritis throughout the stomach. It appears to be more erosive and slightly more irritated in the upper portion of the stomach. We were able to pass a scope into the duodenum. The duodenum looked normal. The scope was withdrawn back into the stomach. I did take antral biopsies to rule out Helicobacter pylori. We did retroflex the scope to visualize the more irritated upper portion of the stomach. There were no sign of any mass or any issue from that aspect. She does appear to have a very small hiatal hernia. The scope was unretroflexed and then we carefully withdrew the scope. Her esophagus appeared otherwise normal. She was then repositioned for colonoscopy. First a rectal exam was done and this was normal. The scope is then inserted and carefully advanced towards the cecum. We were able to gently guide the scope all the way to the cecum. Upon entering the cecum the patient had more liquid stool and she also had a couple solid formed stool balls as well. When I used the online advertising manager to irrigate away the stool balls there was some very thin mucosa which was easily friable. This was unlike her lower colon which appeared to have very healthy mucosa. This thin more friable mucosa was most pronounced in the cecum but she did have some slightly more irritated mucosa also in the proximal ascending colon as well. This could be from trauma from this stool ball lodged here but even just gently irrigating the mucosa does appear irritated here. I did take a biopsy in this area to rule out any colitis and we will see what this shows. I did this with a cold forceps and after biopsy the site was hemostatic and looked good. Outside of the mucosal irritation and inflammation in the cecum and the ascending colon proximally, I did not see any other issues with the colon. The scope was able to be carefully withdrawn. The rest of the colon appeared normal. The patient did have some patches of liquid stool and a couple other pieces of solid stool which slightly limited our view but I did not see any other lesions or any issue of concern. The scope was withdrawn and the patient tolerated the procedure well. She does not have any history of inflammatory bowel disease. It is hard to say at this point whether this truly could be inflammatory bowel disease or if she just had irritation from having a larger stool ball lodged here. We will await the biopsy results and see how she does as we continue our work up while she is in the hospital. She will need to follow up with me in the office for the final pathology results and if she continues to have symptoms we will continue to work her up, possibly do an inflammatory bowel disease panel and then I do think that she may need another colonoscopy in the future to insure that this area has healed and we will repeat her EGD on a PRN basis.
[2017-02-18] MEDS: Zofran 4 MG/2 ML VIAL IV PRN (09:50)
[2017-02-18] MEDS: Pepcid 20 MG VIAL IV SCH (09:53)
[2017-02-18] MEDS: SUBLIMAZE 100 MCG/2 ML IV PRN (09:56)
[2017-02-18] MEDS: Protonix 40MG Tablet PO SCH (10:26)
[2017-02-18] MEDS: Klor Con 10 MEQ PO SCH (10:26)
--- NOTE | 2017-02-18 10:27 | XRAY ---
Indication: Right upper quadrant pain and nausea. Negative gallbladder sonogram. Comparison: None Patient received 5.5 mCi technetium 99 Choletec. Immediate anterior planar imaging was performed for 60 minutes. Normal hepatic activity on the first image. Normal biliary activity within 15 minutes. Normal gallbladder activity within 20 minutes. Patient received 2.3 g of IV CCK slowly. Ejection fraction calculated 53%, normal range. Impression: Negative HIDA scan with normal ejection fraction.
[2017-02-18 11:20] VITALS: O2SAT 97
[2017-02-18 11:56] VITALS: BP 115/70; PULSE 74
--- NOTE | 2017-02-18 12:11 | PCM.DS ---
Discharge Summary Date of Admission: 02/15/17 20:17 Admitting Physician: YESICA MARADIAGA Primary Care Provider: YESICA MARADIAGA Allergies Allergies latex Allergy (Severe, Verified 02/15/17 16:29) STOPPED BREATHING levothyroxine sodium [From Synthroid] Allergy (Verified 02/15/17 16:29) methylphenidate [From Ritalin] Allergy (Verified 02/15/17 16:29) aspirin Adverse Reaction (Mild, Verified 02/15/17 16:29) Vomiting medidate Adverse Reaction (Mild, Uncoded 02/15/17 16:29) [facility] Hospital Course: Chief Complaint Diagnosis Rt abdominal pain for 1 week Allergies Allergy/AdvReac Type Severity Reaction Status Date / Time latex Allergy Severe STOPPED Verified 02/15/17 16:29 BREATHING levothyroxine sodium Allergy Verified 02/15/17 16:29 [From Synthroid] methylphenidate Allergy Verified 02/15/17 16:29 [From Ritalin] aspirin AdvReac Mild Vomiting Verified 02/15/17 16:29 medidate AdvReac Mild VOMTIING Uncoded 02/15/17 16:29 Vital Signs (Last 24 hours) Temp Pulse Resp BP Pulse Ox 02/18/17 11:56 97.8 F 74 18 115/70 97 02/18/17 11:19 70 18 97 02/18/17 07:49 97.8 F 64 18 119/65 98 02/18/17 04:48 98.1 F 66 16 126/72 98 02/17/17 23:35 98.5 F 62 14 115/68 96 02/17/17 20:35 98.3 F 64 16 135/63 97 02/17/17 17:22 96 02/17/17 15:56 98.1 F 78 20 130/68 94 L 02/17/17 13:56 97.6 F 66 18 120/66 96 02/17/17 12:58 98 F 80 18 130/76 97 02/17/17 12:07 98.1 F 84 18 134/80 97 Home Medications Medication Instructions Recorded Confirmed Last Taken Type Albuterol 2.5 mg/3 ml Neb 1 each IH Q4H PRN PRN 02/15/17 02/15/17 02/15/17 13 :00 History [Proventil 2.5 mg/3 ml Neb] Albuterol 8 gm Mdi Hfa 8 gm IH Q4H PRN PRN 02/15/17 02/15/17 Unknown History [Ventolin Hfa MDI] Melatonin/Pyridoxine [Melatonin 3 2 each PO HS PRN PRN 02/15/17 02/15/17 History mg Tablet] Current Medications Generic Name Dose Route Start Last Admin Trade Name Freq PRN Reason Stop Dose Admin Acetaminophen 650 mg 02/17/17 18:56 Tylenol 325 Mg PO 03/19/17 18:55 Q6H PRN PRN PAIN AND/OR FEVER Acetaminophen/Hydrocodone Bitart 1 tab 02/15/17 23:15 02/17/17 20:04 [place] 5/325 Mg PO 02/20/17 23:14 1 tab Q6H PRN PRN Administration PAIN Albuterol Sulfate 2.5 mg 02/15/17 22:49 02/15/17 22:55 Proventil 2.5 Mg/3 Ml Neb IH 03/17/17 22:48 2.5 mg Q4H PRN PRN Administration SHORTNESS OF BREATH/WHEEZING Famotidine 20 mg 02/15/17 22:00 02/18/17 09:53 Pepcid 20 Mg Vial IV 03/17/17 21:59 20 mg Q12HT JAH Administration Fentanyl Citrate 50 mcg 02/16/17 12:59 02/18/17 09:56 Sublimaze 100 Mcg/2 Ml IV 02/21/17 12:58 50 mcg Q6HPRN PRN Administration PAIN Lactated Ringer's 1,000 mls @ 50 mls/hr 02/16/17 16:30 02/18/17 05:55 Lactated Ringers IV 03/18/17 16:29 50 mls/hr .Q20H JAH Administration Ondansetron HCl 4 mg 02/15/17 20:18 02/18/17 09:50 Zofran 4 Mg/2 Ml Vial IV 03/17/17 20:17 4 mg Q6H PRN PRN Administration NAUSEA/VOMITING Ondansetron HCl 4 mg 02/16/17 07:02 Zofran Odt 4 Mg PO 03/18/17 07:01 Q6H PRN PRN NAUSEA/VOMITING Pantoprazole Sodium 40 mg 02/17/17 11:30 02/18/17 10:26 Protonix 40mg Tablet PO 03/19/17 11:29 40 mg DAILY JAH Administration Potassium Chloride 20 meq 02/15/17 22:00 02/18/17 10:26 Klor Con 10 Meq PO 03/17/17 21:59 20 meq BID JAH Administration Promethazine HCl 12.5 mg 02/16/17 12:59 02/17/17 21:38 Phenergan 25 Mg Inj IV 03/18/17 12:58 12.5 mg Q4H PRN PRN Administration NAUSEA/VOMITING Discontinued Medications Generic Name Dose Route Start Last Admin Trade Name Freq PRN Reason Stop Dose Admin Diphenhydramine HCl 25 mg 02/15/17 17:09 02/15/17 17:21 Benadryl 50 Mg/Ml IV 02/15/17 17:10 25 mg STAT ONE Administration Diphenhydramine HCl Confirm 02/15/17 17:16 Benadryl 50 Mg/Ml Administered 02/15/17 17:17 Dose 50 mg .ROUTE .STK-MED ONE Diphenhydramine HCl 25 mg 02/15/17 19:29 02/15/17 19:47 Benadryl 50 Mg/Ml IV 02/15/17 19:30 25 mg STAT ONE Administration Diphenhydramine HCl Confirm 02/15/17 19:45 Benadryl 50 Mg/Ml Administered 02/15/17 19:46 Dose 50 mg .ROUTE .STK-MED ONE Hydromorphone HCl 1 mg 02/15/17 17:09 02/15/17 17:21 Hydromorphone 1 Mg/Ml Ampule IV 02/15/17 17:10 1 mg STAT ONE Administration Hydromorphone HCl Confirm 02/15/17 17:16 Hydromorphone 1 Mg/Ml Ampule Administered 02/15/17 17:17 Dose 1 mg .ROUTE .STK-MED ONE Hydromorphone HCl 1 mg 02/15/17 19:29 02/15/17 19:47 Hydromorphone 1 Mg/Ml Ampule IV 02/15/17 19:30 1 mg STAT ONE Administration Hydromorphone HCl Confirm 02/15/17 19:45 Hydromorphone 1 Mg/Ml Ampule Administered 02/15/17 19:46 Dose 1 mg .ROUTE .STK-MED ONE Sodium Chloride 1,000 mls @ 999 mls/hr 02/15/17 17:09 02/15/17 17:21 Sodium Chloride 0.9% 1000 Ml IV 02/15/17 18:09 999 mls/hr .Q1H1M STA Administration Sodium Chloride Confirm 02/15/17 17:16 Sodium Chloride 0.9% 1000 Ml Administered 02/15/17 17:17 Dose 1,000 mls @ ud .ROUTE .STK-MED ONE Dextrose/Lactated Ringer's 1,000 mls @ 100 mls/hr 02/15/17 20:18 02/17/17 11: 17 Dextrose 5%-Lr Iv Solution 1000 Ml IV 03/17/17 20:17 100 mls/hr .Q10H JAH Administration Lactated Ringer's Confirm 02/17/17 09:21 Lactated Ringers Administered 02/17/17 09:22 Dose 1,000 mls @ ud IV .STK-MED ONE Morphine Sulfate 2 mg 02/15/17 21:37 02/16/17 09:03 Morphine Sulfate 2 Mg Inj IV 02/20/17 21:36 2 mg Q4H PRN PRN Administration PAIN Polyethylene Glycol/Electrolytes 4,000 ml 02/16/17 17:00 02/16/17 17:23 Golytely Solution 4000 Ml PO 02/16/17 17:01 4,000 ml ONCE@1700 ONE Administration Intake & Output (Last 24 hours) 02/16/17 02/17/17 02/18/17 02/19/17 11:59 11:59 11:59 11:59 Intake Total 861 3574 1223 Output Total 800 1400 Balance 61 3574 -177 Weight 116.981 kg 116.981 kg 116.981 kg Laboratory Results (Last 24 hours) 02/18/17 02/18/17 05:25 05:25 WBC 6.0 RBC 5.42 H Hgb 13.9 Hct 42.1 MCV 77.7 L MCH 25.6 L MCHC 33.0 RDW 12.8 Plt Count 239 MPV 9.9 H Sodium 137 Potassium 3.9 Chloride 104 Carbon Dioxide 26.1 Anion Gap 10.8 BUN 7 L Creatinine 0.76 Estimated GFR > 60 Glucose 85 Calcium 8.6 Orders (Last 24 hours) Category Date Time Status Miscellaneous Nursing Order ROUTINE Care 02/18/17 10:06 Active Regular Diet Diet 02/18/17 Lunch Active HIDA-GALL BLADDER [NUCMED] Urgent Exams 02/18/17 08:00 Completed BMP AM.LAB Lab 02/18/17 05:25 Completed CBC AM.LAB Lab 02/18/17 05:25 Completed Acetaminophen 325 mg [Tylenol 325 mg] Med 02/17/17 18:56 Active 650 mg PO Q6H PRN PRN PANTOPRAZOLE 40 mg Tablet [Protonix 40MG Tablet] Med 02/17/17 11:30 Active 40 mg PO DAILY - Vitals & Intake/Output Vital Signs: Vital Signs Temperature 97.8 F 02/18/17 11:56 Pulse Rate 74 02/18/17 11:56 Respiratory Rate 18 02/18/17 11:56 Blood Pressure 115/70 02/18/17 11:56 O2 Sat by Pulse Oximetry 97 02/18/17 11:56 Intake & Output: Intake & Output 02/16/17 02/17/17 02/18/17 02/19/17 11:59 11:59 11:59 11:59 Intake Total 861 3574 1223 Output Total 800 1400 Balance 61 3574 -177 Weight 116.981 kg 116.981 kg 116.981 kg - Lab Result Diagrams: 02/18/17 05:25 02/18/17 05:25 Lab Results-Last 24 Hrs: Lab Results-Last 24 Hours 02/18/17 02/18/17 Range/Units 05:25 05:25 WBC 6.0 (4.0-10.5) K/mm3 RBC 5.42 H (4.1-5.4) M/mm3 Hgb 13.9 (12.0-16.0) gm/dl Hct 42.1 (35-47) % MCV 77.7 L (78-100) fl MCH 25.6 L (26-32) pg MCHC 33.0 (32-36) g/dl RDW 12.8 (11.5-14.0) % Plt Count 239 (150-450) K/mm3 MPV 9.9 H (6-9.5) fl Sodium 137 (136-145) mEq/L Potassium 3.9 (3.5-5.1) mEq/L Chloride 104 (98-107) mEq/L Carbon Dioxide 26.1 (21-32) mEq/L Anion Gap 10.8 (5-15) MEQ/L BUN 7 L (9-20) mg/dL Creatinine 0.76 (0.55-1.30) mg/dl Estimated GFR > 60 ML/MIN Glucose 85 (70-110) MG/DL Calcium 8.6 (8.5-10.1) mg/dL - Radiology Exams Ordered Rad Exams-Entire Visit: Radiology Procedures Category Date Time Status HIDA-GALL BLADDER [NUCMED] Urgent Exams 02/18/17 08:00 Completed - Procedures and Test Procedures and Tests throughout Hospitalization: Therapy Orders & Screens 02/15/17 21:03 RT Screen per Nursing Assess ONCE Comment: Protocol Order Physician Instructions: Greater than 3 points order RT Admission Screen Reason For Exam: Triggered on Admission Diagnosis: Rt abdominal pain Diagnosis: Rt abdominal pain Pneumonia: No Home O2: No Asthma: Yes CHF: No Home CPAP/BIPAP: No Home Nebs/MDI: Yes Total Points: 9 02/15/17 22:50 Flutter Therapy UD Comment: use as needed Diagnosis: Rt abdominal pain Respiratory Nebulizer UD Comment: albuterol q4prn Diagnosis: Rt abdominal pain Discharge Exam General Appearance: no apparent distress, alert Neurologic Exam: alert, oriented x 3, cooperative, normal mood/affect, nml cerebellar function, sensation nml, No motor deficits Skin Exam: normal color, warm, dry Eye Exam: PERRL, EOMI, eyes nml inspection Ears, Nose, Throat Exam: normal ENT inspection, pharynx normal, moist mucous membranes Neck Exam: normal inspection, non-tender, supple, full range of motion Respiratory Exam: normal breath sounds, lungs clear, No respiratory distress Cardiovascular Exam: regular rate/rhythm, normal heart sounds Gastrointestinal/Abdomen Exam: soft, No tenderness, No mass Extremity Exam: normal inspection, normal range of motion Back Exam: normal inspection, normal range of motion, No CVA tenderness, No vertebral tenderness Pelvic Exam: deferred Rectal Exam: deferred Final Diagnosis/Problem List - Final Discharge Diagnosis/Problem (1) Right sided abdominal pain Current Visit: Yes Status: Resolved (2) Colitis Current Visit: Yes Status: Acute (3) Gastritis and duodenitis Current Visit: Yes Status: Acute - Discharge Discharge Date: 02/18/17 Disposition: Home, Self-Care Condition: Stable Prescriptions: New Metronidazole 500 mg [Flagyl 500 MG] 500 mg PO TID #15 tablet PANTOPRAZOLE 40 mg Tablet [Protonix 40MG Tablet] 40 mg PO QAM #30 tab Continue Thyroid,Pork [[place]eld[place] Thyroid] 60 mg PO DAILY Sumatriptan Succinate [Imitrex 50 mg] 50 mg PO UD Phentermine HCl [Adipex-P] 37.5 mg PO DAILY Hydrocodone Bit/Acetaminophen [[place] 5-325 Tablet] 1 each PO Q6H PRN PRN #12 tablet PRN Reason: Pain Ondansetron [Zofran Odt] 4 mg PO Q6H PRN PRN #10 tab.rapdis PRN Reason: Nausea/Vomiting Famotidine 20 mg [Pepcid 20 MG] 20 mg PO BID #20 tablet Albuterol 8 gm Mdi Hfa [Ventolin Hfa MDI] 8 gm IH Q4H PRN PRN PRN Reason: Shortness Of Breath/Wheezing Albuterol 2.5 mg/3 ml Neb [Proventil 2.5 mg/3 ml Neb] 1 each IH Q4H PRN PRN PRN Reason: Shortness Of Breath/Wheezing Melatonin/Pyridoxine [Melatonin 3 mg Tablet] 2 each PO HS PRN PRN PRN Reason: Insomnia Instructions: Abdominal Pain-Adult Follow up with: SHAN THAPA MD [ACTIVE STAFF] - 1 Week YESICA MARADIAGA MD [Primary Care Provider] -
[2017-02-18] MEDS ORDERED: DIPRIVAN 200 MG/20 ML IV ONE (13:44)
== END 2017-02-18 13:45 | disposition home or self-care (01) ==
LOC: ED 16:14 → MED SURG 20:17
PROVIDERS: ADMIT General Practice; ATTEND General Practice
PROC: 0DB68ZX Excision of Stomach, Via Natural or Artificial Opening Endoscopic, Diagnostic (ICD-10-PCS; principal; 2017-02-17)
PROC: 0DBK8ZX Excision of Ascending Colon, Via Natural or Artificial Opening Endoscopic, Diagnostic (ICD-10-PCS; 2017-02-17)
DX: R10.9 Unspecified abdominal pain (principal); K52.9 Noninfective gastroenteritis and colitis, unspecified; K29.70 Gastritis, unspecified, without bleeding; K29.80 Duodenitis without bleeding; Z79.899 Other long term (current) drug therapy; J45.909 Unspecified asthma, uncomplicated; E03.9 Hypothyroidism, unspecified; F98.8 Other specified behavioral and emotional disorders with onset usually occurring in childhood and adolescence
CPT/HCPCS: 00740; 00810; 36000; 36415; 74177; 78226; 80048; 80053; 83605; 83690; 84703; 85025; 85027; 88305; 94640; 94760; 96360; 96374; 96375; 96376; 99285; A9537; G0378; J1170; J1200; J2270; J2405; J2550; J2704; J2805; J3010; A9270-GY

== ENCOUNTER 2017-03-24 18:22 | Emergency (ER) | payer OTHER ==
[2017-03-24] MEDS ORDERED: Phenergan 25 MG INJ IV ONE (19:11)
[2017-03-24] MEDS ORDERED: Hydromorphone 1 mg/ml Ampule IV ONE ×2 (19:13→20:35)
[2017-03-24] MEDS ORDERED: Sodium Chloride 0.9% 1000 ML 1,000 ML IV SCH (19:15)
--- NOTE | 2017-03-24 19:19 | ERPHSYRPT ---
- History of Present Illness Time Seen by Provider: 03/24/17 19:03 Source: patient, family (MOM) Exam Limitations: no limitations Physician History: FOR THE PAST 2 DAYS PT HAS HAD A SEVERE RIGHT SIDED HEADACHE WORSE WITH MOVEMENT WITH NAUSEA, PHOTOPHOBIA AND PHONOPHOBIA. PT ALSO C/O SHORTNESS OF AIR FOR THE PAST 2.5 HOURS WITHOUT CHEST PAIN. PT HAS HAD THESE HEADACHES FOR THE PAST [address]-HEAD ON 06/05/15 SHOWING AN ARACHNOID CYST BUT NO ACUTE INTRA-CRANIAL ABNORMALITIES. Allergies/Adverse Reactions: latex Allergy (Severe, Verified 03/24/17 19:17) STOPPED BREATHING levothyroxine sodium [From Synthroid] Allergy (Verified 03/24/17 19:17) methylphenidate [From Ritalin] Allergy (Verified 03/24/17 19:17) aspirin Adverse Reaction (Mild, Verified 03/24/17 19:17) Vomiting medidate Adverse Reaction (Mild, Uncoded 03/24/17 19:17) VOMTIING Home Medications: Sumatriptan Succinate [Imitrex 50 mg] 50 mg PO UD 11/18/16 [History] Thyroid,Pork [[place] Thyroid] 60 mg PO DAILY 11/18/16 [History] Phentermine HCl [Adipex-P] 37.5 mg PO DAILY 02/14/17 [History] Albuterol 2.5 mg/3 ml Neb [Proventil 2.5 mg/3 ml Neb] 1 each IH Q4H PRN PRN 02/15/17 [History] Albuterol 8 gm Mdi Hfa [Ventolin Hfa MDI] 8 gm IH Q4H PRN PRN 02/15/17 [ History] Hx Tetanus, Diphtheria Vaccination/Date Given: Yes Hx Influenza Vaccination/Date Given: No Hx Pneumococcal Vaccination/Date Given: No - Review of Systems Constitutional: No Fever Eyes: Photophobia Ears, Nose, & Throat: Other (PHONOPHOBIA), No Ear Pain, No Throat Pain Respiratory: Dyspnea Cardiac: No Chest Pain Abdominal/Gastrointestinal: Nausea Skin: No Rash Neurological: Headache, No Focal Weakness, No Sensory Changes Endocrine: No Excessive Sweating All Other Systems: Reviewed and Negative - Past Medical History Pertinent Past Medical History: Yes Neurological History: Migraines ENT History: No Pertinent History Cardiac History: Arrhythmia, Other Respiratory History: Asthma Endocrine Medical History: Hypothyroidism Musculoskeletal History: No Pertinent History GI Medical History: No Pertinent History History: No Pertinent History Psycho-Social History: Attention Deficit Disorder Female Reproductive Disorders: No Pertinent History Other Medical History: Bradycardia, hypotension (usual 90s/60s) - Past Surgical History Past Surgical History: Yes Neuro Surgical History: No Pertinent History Cardiac: No Pertinent History Respiratory: No Pertinent History Gastrointestinal: No Pertinent History Genitourinary: No Pertinent History Female Surgical History: Section - Social History Smoking Status: Former smoker Exposure to second hand smoke: No Drug Use: none Patient Lives Alone: No Significant Family History: cancer (colon/breast), diabetes, other (Gall bladder disease) - Female History Hx Now: No - Nursing Vital Signs Nursing Vital Signs: Initial Vital Signs Temperature 97.6 F Temperature Source Oral Pulse Rate 58 Respiratory Rate 16 Blood Pressure [Right Arm] 120/73 Pain Intensity 5 - Physical Exam General Appearance: alert Eye Exam: PERRL/EOMI, photophobia Ears, Nose, Throat Exam: TMs normal, pharynx normal, moist mucous membranes Neck Exam: normal inspection Respiratory Exam: lungs clear Cardiovascular Exam: normal heart sounds Gastrointestinal/Abdomen Exam: soft, normal bowel sounds Back Exam: normal range of motion Extremity Exam: normal inspection, No pedal edema Neurologic Exam: alert, cooperative, normal mood/affect, No sensation nml, No motor deficits Skin Exam: warm, dry SpO2 Interpretation: normal SpO2: 99 Oxygen Delivery: Room Air - Course Nursing assessment & vital signs reviewed: Yes EKG Interpreted by Me: RATE (57), NORMAL AXIS, Other (SINUS ARRHYTHMIA; BRADYCARDIA.) - Radiology Exams Chest X-ray Interpretation: Interpreted by me, No Pneumonia Ordered Tests: Active Orders 24 hr Category Date Time Status EKG-ER Only STAT Care 03/24/17 19:11 Active IV Insertion STAT Care 03/24/17 19:11 Active CHEST 1 VIEW (PORTABLE) Stat Exams 03/24/17 19:12 Taken AMYLASE Stat Lab 03/24/17 19:38 Completed CBC W DIFF Stat Lab 03/24/17 19:38 Completed CMP Stat Lab 03/24/17 19:38 Completed CULTURE,URINE Stat Lab 03/24/17 19:38 Received HCG QUALITATIVE,SERUM Stat Lab 03/24/17 19:38 Completed LIPASE Stat Lab 03/24/17 19:38 Completed MAGNESIUM Stat Lab 03/24/17 19:38 Completed NT PRO BNP Urgent Lab 03/24/17 19:38 Completed TROPONIN Q3H Lab 03/24/17 19:38 Completed TROPONIN Q3H Lab 03/24/17 22:15 Ordered TROPONIN Q3H Lab 03/25/17 01:15 Ordered TROPONIN Q3H Lab 03/25/17 04:15 Ordered TROPONIN Q3H Lab 03/25/17 07:15 Ordered UA W/ MICROSCOPIC Stat Lab 03/24/17 19:38 Completed Medication Summary Generic Name Dose Route Start Last Admin Trade Name Freq PRN Reason Stop Dose Admin Sodium Chloride 1,000 mls @ 100 mls/hr 03/24/17 19:15 03/24/17 19:31 Sodium Chloride 0.9% 1000 Ml IV 04/23/17 19:14 100 mls/hr .Q10H JAH Administration Discontinued Medications Generic Name Dose Route Start Last Admin Trade Name Freq PRN Reason Stop Dose Admin Hydromorphone HCl 1 mg 03/24/17 19:13 03/24/17 19:31 Hydromorphone 1 Mg/Ml Ampule IV 03/24/17 19:14 1 mg STAT ONE Administration Hydromorphone HCl Confirm 03/24/17 19:28 Hydromorphone 1 Mg/Ml Ampule Administered 03/24/17 19:29 Dose 1 mg .ROUTE .STK-MED ONE Hydromorphone HCl 1 mg 03/24/17 20:35 03/24/17 20:44 Hydromorphone 1 Mg/Ml Ampule IV 03/24/17 20:36 1 mg STAT ONE Administration Hydromorphone HCl Confirm 03/24/17 20:40 Hydromorphone 1 Mg/Ml Ampule Administered 03/24/17 20:41 Dose 1 mg .ROUTE .STK-MED ONE Ondansetron HCl 4 mg 03/24/17 20:35 03/24/17 20:42 Zofran 4 Mg/2 Ml Vial IV 03/24/17 20:36 4 mg STAT ONE Administration Ondansetron HCl Confirm 03/24/17 20:40 Zofran 4 Mg/2 Ml Vial Administered 03/24/17 20:41 Dose 4 mg .ROUTE .STK-MED ONE Promethazine HCl 12.5 mg 03/24/17 19:11 03/24/17 19:31 Phenergan 25 Mg Inj IV 03/24/17 19:12 12.5 mg STAT ONE Administration Promethazine HCl Confirm 03/24/17 19:28 Phenergan 25 Mg Inj Administered 03/24/17 19:29 Dose 25 mg .ROUTE .STK-MED ONE Lab/Rad Data: Laboratory Result Diagrams 03/24/17 19:38 03/24/17 19:38 Laboratory Results 03/24/17 03/24/17 03/24/17 Range/Units 19:38 19:38 19:38 WBC (4.0-10.5) K/mm3 RBC (4.1-5.4) M/mm3 Hgb (12.0-16.0) gm/dl Hct (35-47) % MCV (78-100) fl MCH (26-32) pg MCHC (32-36) g/dl RDW (11.5-14.0) % Plt Count (150-450) K/mm3 MPV (6-9.5) fl Gran % (36.0-66.0) % Lymphocytes % (24.0-44.0) % Monocytes % (0.0-12.0) % Eosinophils % (0.00-5.0) % Basophils % (0.0-0.4) % Basophils # (0-0.4) Sodium (136-145) mEq/L Potassium (3.5-5.1) mEq/L Chloride (98-107) mEq/L Carbon Dioxide (21-32) mEq/L Anion Gap (5-15) MEQ/L BUN (9-20) mg/dL Creatinine (0.55-1.30) mg/dl Estimated GFR ML/MIN Glucose (70-110) MG/DL Calcium (8.5-10.1) mg/dL Magnesium (1.8-2.4) mg/dL Total Bilirubin (0.2-1.0) mg/dL AST (15-37) U/L ALT (12-78) U/L Alkaline Phosphatase (46-116) U/L Troponin I < 0.017 (0.000-0.056) ng/ml NT-Pro-B Natriuret Pep 61 (0-125) pg/ml Serum Total Protein (6.4-8.2) gm/dL Albumin (3.4-5.0) g/dL Amylase (25-115) U/L Lipase (73-393) U/L Serum , Qual NEGATIVE (Negative) Ur Collection Type CLEAN CATCH Urine Color YELLOW (YELLOW) Urine Appearance CLOUDY (CLEAR) Urine pH 6.5 (5-6) Ur Specific [place] 1.020 (1.005-1.025) Urine Protein TRACE (Negative) Urine Glucose (UA) NEGATIVE (NEGATIVE) mg/dL Urine Ketones NEGATIVE (NEGATIVE) Urine Nitrite NEGATIVE (NEGATIVE) Urine Bilirubin NEGATIVE (NEGATIVE) Urine Urobilinogen 0.2 (0-1) mg/dL Urine WBC (Auto) NEGATIVE (NEGATIVE) Urine RBC (Auto) LARGE (0-5) Reymundo/ul Urine Microscopic RBC 2-5 (0-2) /HPF Urine Microscopic WBC 0-2 (0-5) /HPF Ur Epithelial Cells MANY (FEW) /HPF Urine Bacteria MODERATE (NEGATIVE) /HPF Urine Yeast RARE (NEGATIVE) /HPF Specimen Received 03/24/17 19303/24/17 03/24/17 Range/Units 19:38 19:38 WBC 5.6 (4.0-10.5) K/mm3 RBC 5.11 (4.1-5.4) M/mm3 Hgb 13.2 (12.0-16.0) gm/dl Hct 40.4 (35-47) % MCV 79.1 (78-100) fl MCH 25.8 L (26-32) pg MCHC 32.7 (32-36) g/dl RDW 13.5 (11.5-14.0) % Plt Count 236 (150-450) K/mm3 MPV 10.4 H (6-9.5) fl Gran % 60.8 (36.0-66.0) % Lymphocytes % 28.5 (24.0-44.0) % Monocytes % 7.8 (0.0-12.0) % Eosinophils % 2.7 (0.00-5.0) % Basophils % 0.2 (0.0-0.4) % Basophils # 0.01 (0-0.4) Sodium 139 (136-145) mEq/L Potassium 3.9 (3.5-5.1) mEq/L Chloride 106 (98-107) mEq/L Carbon Dioxide 23.6 (21-32) mEq/L Anion Gap 12.9 (5-15) MEQ/L BUN 11 (9-20) mg/dL Creatinine 0.79 (0.55-1.30) mg/dl Estimated GFR > 60 ML/MIN Glucose 82 (70-110) MG/DL Calcium 8.9 (8.5-10.1) mg/dL Magnesium 1.9 (1.8-2.4) mg/dL Total Bilirubin 0.20 (0.2-1.0) mg/dL AST 24 (15-37) U/L ALT 33 (12-78) U/L Alkaline Phosphatase 58 (46-116) U/L Troponin I (0.000-0.056) ng/ml NT-Pro-B Natriuret Pep (0-125) pg/ml Serum Total Protein 6.7 (6.4-8.2) gm/dL Albumin 3.3 L (3.4-5.0) g/dL Amylase 41 (25-115) U/L Lipase 192 (73-393) U/L Serum , Qual (Negative) Ur Collection Type Urine Color (YELLOW) Urine Appearance (CLEAR) Urine pH (5-6) Ur Specific [place] (1.005-1.025) Urine Protein (Negative) Urine Glucose (UA) (NEGATIVE) mg/dL Urine Ketones (NEGATIVE) Urine Nitrite (NEGATIVE) Urine Bilirubin (NEGATIVE) Urine Urobilinogen (0-1) mg/dL Urine WBC (Auto) (NEGATIVE) Urine RBC (Auto) (0-5) Reymundo/ul Urine Microscopic RBC (0-2) /HPF Urine Microscopic WBC (0-5) /HPF Ur Epithelial Cells (FEW) /HPF Urine Bacteria (NEGATIVE) /HPF Urine Yeast (NEGATIVE) /HPF Specimen Received - Departure Time of Disposition: 20:59 Departure Disposition: Home Clinical Impression: HEADACHE, SHORTNESS OF AIR, ASTHMA, HYPOTHYROIDISM, ADD Condition: Fair Critical Care Time: No Instructions: Headache, Shortness of Breath Additional Instructions: FOLLOW UP WITH PRIVATE DOCTOR TOMORROW. Prescriptions: Promethazine HCl 25 mg [Phenergan 25 mg] 25 mg PO Q4H PRN PRN #14 tablet PRN Reason: Nausea/Vomiting
[2017-03-24] MEDS ORDERED: Hydromorphone 1 mg/ml Ampule ONE ×2 (19:28→20:40)
[2017-03-24] MEDS ORDERED: Phenergan 25 MG INJ ONE (19:28)
[2017-03-24] MEDS ORDERED: Sodium Chloride 0.9% 1000 ML 1,000 ML ONE (19:28)
[2017-03-24 19:42] LABS: BASOPHIL % 0.2 % (0.0-0.4); Eosinophil % 2.7 % (0.00-5.0); Granulocytes % 60.8 % (36.0-66.0); Lymphocytes % 28.5 % (24.0-44.0); Mean Cell Volume 79.1 fl (78-100); Mean Corpuscular Hemoglobin 25.8 pg (26-32); Mean Platelet Volume 10.4 fl (6-9.5); Monocytes % 7.8 % (0.0-12.0); Platelet Count 236 K/mm3 (150-450); Red Blood Count 5.11 M/mm3 (4.1-5.4); Red Cell Distribution Width 13.5 % (11.5-14.0); White Blood Count 5.6 K/mm3 (4.0-10.5)
[2017-03-24 20:02] LABS: COMPLETE URINE MICROSCOPIC? YES; Collection Type CLEAN CATCH; Ph 6.5 (5-6)
[2017-03-24 20:03] LABS: ADD URINE CULTURE? YES (NO); Bacteria MODERATE /HPF (NEGATIVE); Epithelial Cells MANY /HPF (FEW); WBC 0-2 /HPF (0-5); Yeast RARE /HPF (NEGATIVE)
[2017-03-24 20:35] LABS: ALBUMIN 3.3 g/dL (3.4-5.0); ALKALINE PHOSPHATASE 58 U/L (46-116); ANION GAP 12.9 MEQ/L (5-15); BLOOD UREA NITROGEN 11 mg/dL (9-20); CHLORIDE 106 mEq/L (98-107); Carbon Dioxide 23.6 mEq/L (21-32); Glucose 82 MG/DL (70-110); LIPASE 192 U/L (73-393); MAGNESIUM 1.9 mg/dL (1.8-2.4); Potassium 3.9 mEq/L (3.5-5.1); SGOT/AST 24 U/L (15-37); SGPT/ALT 33 U/L (12-78); SODIUM 139 mEq/L (136-145); Total Protein 6.7 gm/dL (6.4-8.2)
[2017-03-24] MEDS ORDERED: Zofran 4 MG/2 ML VIAL IV ONE (20:35)
[2017-03-24 20:37] LABS: TROPONIN < 0.017 ng/ml (0.000-0.056)
[2017-03-24] MEDS ORDERED: Zofran 4 MG/2 ML VIAL ONE (20:40)
[2017-03-24 21:20] VITALS: BP 125/78; PULSE 66; O2SAT 98
--- NOTE | 2017-03-25 08:34 | XRAY ---
Indication: Short of breath. Comparison: February 14, 2017. Portable chest again demonstrates normal heart, lungs, and bony thorax.
== END 2017-03-24 21:19 | disposition home or self-care (01) ==
LOC: ED 18:22
DX: R51 Headache (principal); R06.02 Shortness of breath; J45.909 Unspecified asthma, uncomplicated; E03.9 Hypothyroidism, unspecified; F98.8 Other specified behavioral and emotional disorders with onset usually occurring in childhood and adolescence; R11.0 Nausea; H53.149 Visual discomfort, unspecified; Z79.899 Other long term (current) drug therapy
CPT/HCPCS: 36000; 36415; 71010; 80053; 81000; 82150; 83690; 83735; 83880; 84484; 84703; 85025; 87086; 93005; 96360; 96361; 96374; 96375; 96376; 99283; 99285; J1170; J2405; J2550

== ENCOUNTER 2017-06-10 19:48 | Emergency (ER) | payer OTHER ==
[2017-06-10] MEDS ORDERED: Phenergan 25 MG INJ IV ONE ×2 (20:16→22:19)
[2017-06-10] MEDS ORDERED: Sodium Chloride 0.9% 1000 ML 1,000 ML IV STA (20:16)
[2017-06-10] MEDS ORDERED: Hydromorphone 1 mg/ml Ampule IV ONE ×3 (20:16→22:19)
--- NOTE | 2017-06-10 20:23 | ERPHSYRPT ---
- History of Present Illness Time Seen by Provider: 06/10/17 20:10 Historian: patient Exam Limitations: no limitations Patient Subjective Stated Complaint: jpt is co abd pain today she has had to many diarrhea stools to count yellow in color right upper quad pain -she can't eat or drink anything and tonight she vomited once -no fever the pain in stabbing and burning -she was diagnose with crohns and has been on a gluten free diet -she called dr maradiaga and has taken 2 of a z ren Triage Nursing Assessment: p t is awake and alert and able to answer questions Physician History: FOR THE PAST 2 DAYS PT HAS HAD SHARP/BURNING RUQ ABDOMINAL PAIN WITH DIARRHEA X~ 40 WITHOUT BLOOD AND NAUSEA; TODAY VOMITING X1 AND SORE THROAT. PT DENIES CHEST PAIN, SHORTNESS OF AIR, FEVER. Allergies/Adverse Reactions: latex Allergy (Severe, Verified 03/24/17 19:17) STOPPED BREATHING levothyroxine sodium [From Synthroid] Allergy (Verified 03/24/17 19:17) methylphenidate [From Ritalin] Allergy (Verified 03/24/17 19:17) aspirin Adverse Reaction (Mild, Verified 03/24/17 19:17) Vomiting flu Allergy (Uncoded 06/10/17 20:17) medidate Adverse Reaction (Mild, Uncoded 03/24/17 19:17) VOMTIING Home Medications: Thyroid,Pork [Misenheimer Thyroid] 60 mg PO DAILY 11/18/16 [History] Albuterol 2.5 mg/3 ml Neb [Proventil 2.5 mg/3 ml Neb] 1 each IH Q4H PRN PRN 02/15/17 [History] Albuterol 8 gm Mdi Hfa [Ventolin Hfa MDI] 8 gm IH Q4H PRN PRN 02/15/17 [ History] Hx Tetanus, Diphtheria Vaccination/Date Given: Yes Hx Influenza Vaccination/Date Given: No Hx Pneumococcal Vaccination/Date Given: No - Review of Systems Constitutional: No Fever Ears, Nose, & Throat: Throat Pain Respiratory: No Dyspnea Cardiac: No Chest Pain Abdominal/Gastrointestinal: Abdominal Pain, Nausea, Vomiting, Diarrhea Endocrine: No Excessive Sweating All Other Systems: Reviewed and Negative - Past Medical History Pertinent Past Medical History: Yes Neurological History: Migraines ENT History: No Pertinent History Cardiac History: Arrhythmia, Other Respiratory History: Asthma Endocrine Medical History: Hypothyroidism Musculoskeletal History: No Pertinent History GI Medical History: No Pertinent History, Crohns Disease History: No Pertinent History Psycho-Social History: Attention Deficit Disorder Female Reproductive Disorders: No Pertinent History Other Medical History: Bradycardia, hypotension (usual 90s/60s) - Past Surgical History Past Surgical History: Yes Neuro Surgical History: No Pertinent History Cardiac: No Pertinent History Respiratory: No Pertinent History Gastrointestinal: No Pertinent History Genitourinary: No Pertinent History Female Surgical History: Section Other Surgical History: egd, colonoscopy - Social History Smoking Status: Never smoker Exposure to second hand smoke: No Drug Use: none Patient Lives Alone: No Significant Family History: cancer (colon/breast), diabetes, other (Gall bladder disease) - Female History Hx Last Menstrual Period: 06/03/2017 Hx Now: No - Nursing Vital Signs Nursing Vital Signs: Initial Vital Signs Temperature 98.3 F 06/10/17 20:14 Pulse Rate 102 H 06/10/17 20:14 Respiratory Rate 16 06/10/17 20:14 Blood Pressure 130/78 06/10/17 20:14 O2 Sat by Pulse Oximetry 98 06/10/17 20:14 Pain Scale Pain Intensity 7 - Physical Exam General Appearance: alert Eye Exam: PERRL/EOMI Ears, Nose, Throat Exam: TMs normal, pharynx normal, moist mucous membranes Neck Exam: normal inspection, full range of motion Respiratory Exam: lungs clear Cardiovascular Exam: normal heart sounds Gastrointestinal/Abdomen Exam: soft, tenderness (MILD RUQ ABDOMINAL TENDERNESS) , other (B.S. MODERATELY HYPERACTIVE AND NORMOTONIC.), No guarding Back Exam: normal range of motion Extremity Exam: normal inspection, No pedal edema Neurologic Exam: alert, cooperative Skin Exam: warm, dry SpO2 Interpretation: normal SpO2: 98 Oxygen Delivery: Room Air - Course Nursing assessment & vital signs reviewed: Yes - Radiology Exams Abdomen X-ray Interpretation: Interpreted by me (NO OBSTRUCTION) - CT Exams Abdomen/Pelvis CT Interpretation: Tele-radiologist Report (COMPARED TO CT ABD/PEL 02/15/17: NO ACUTE FINDINGS OR SIGNIFICANT CHANGE. MILD SPLENOMEGALY.) Ordered Tests: Active Orders 24 hr Category Date Time Status IV Insertion STAT Care 06/10/17 20:16 Active ABDOMEN AND PELVIS W/0 CONTRAS [CT] Stat Exams 06/10/17 22:19 Taken OBSTR/ACUTE ABDOMEN SERIES Stat Exams 06/10/17 20:24 Taken AMYLASE Stat Lab 06/10/17 20:00 Completed BMP Stat Lab 06/10/17 22:40 Completed CBC W DIFF Stat Lab 06/10/17 20:00 Completed CMP Stat Lab 06/10/17 20:00 Completed HCG QUALITATIVE,SERUM Stat Lab 06/10/17 20:00 Completed LIPASE Stat Lab 06/10/17 20:00 Completed MAG [MAGNESIUM] Stat Lab 06/10/17 20:00 Completed UA W/ MICROSCOPIC Stat Lab 06/10/17 20:00 Completed Medication Summary Generic Name Dose Route Start Last Admin Trade Name Freq PRN Reason Stop Dose Admin Potassium Chloride/Sodium Chloride 1,000 mls @ 500 mls/hr 06/10/17 21:00 08/17 21:02 Sodium Chloride 0.9% W/ 20 Meq Kcl/Liter IV 07/10/17 20:59 500 mls/hr .Q2H JAH Administration Discontinued Medications Generic Name Dose Route Start Last Admin Trade Name Freq PRN Reason Stop Dose Admin Hydromorphone HCl 1 mg 06/10/17 20:16 06/10/17 20:34 Hydromorphone 1 Mg/Ml Ampule IV 06/10/17 20:17 1 mg STAT ONE Administration Hydromorphone HCl Confirm 06/10/17 20:25 Hydromorphone 1 Mg/Ml Ampule Administered 06/10/17 20:26 Dose 1 mg .ROUTE .STK-MED ONE Hydromorphone HCl Confirm 06/10/17 20:28 Hydromorphone 1 Mg/Ml Ampule Administered 06/10/17 20:29 Dose 1 mg .ROUTE .STK-MED ONE Hydromorphone HCl 1 mg 06/10/17 21:18 06/10/17 21:23 Hydromorphone 1 Mg/Ml Ampule IV 06/10/17 21:19 1 mg STAT ONE Administration Hydromorphone HCl Confirm 06/10/17 21:21 Hydromorphone 1 Mg/Ml Ampule Administered 06/10/17 21:22 Dose 1 mg .ROUTE .STK-MED ONE Hydromorphone HCl 1 mg 06/10/17 22:19 06/10/17 22:32 Hydromorphone 1 Mg/Ml Ampule IV 06/10/17 22:20 1 mg STAT ONE Administration Hydromorphone HCl Confirm 06/10/17 22:26 Hydromorphone 1 Mg/Ml Ampule Administered 06/10/17 22:27 Dose 1 mg .ROUTE .STK-MED ONE Sodium Chloride 1,000 mls @ 999 mls/hr 06/10/17 20:16 06/10/17 20:30 Sodium Chloride 0.9% 1000 Ml IV 06/10/17 21:16 999 mls/hr .Q1H1M STA Administration Sodium Chloride Confirm 06/10/17 20:25 Sodium Chloride 0.9% 1000 Ml Administered 06/10/17 20:26 Dose 1,000 mls @ ud .ROUTE .STK-MED ONE Ondansetron HCl 4 mg 06/10/17 21:18 06/10/17 21:29 Zofran 4 Mg/2 Ml Vial IV 06/10/17 21:19 4 mg STAT ONE Administration Ondansetron HCl Confirm 06/10/17 21:26 Zofran 4 Mg/2 Ml Vial Administered 06/10/17 21:27 Dose 4 mg .ROUTE .STK-MED ONE Promethazine HCl 12.5 mg 06/10/17 20:16 06/10/17 20:37 Phenergan 25 Mg Inj IV 06/10/17 20:17 12.5 mg STAT ONE Administration Promethazine HCl Confirm 06/10/17 20:25 Phenergan 25 Mg Inj Administered 06/10/17 20:26 Dose 25 mg .ROUTE .STK-MED ONE Promethazine HCl 12.5 mg 06/10/17 22:19 06/10/17 22:29 Phenergan 25 Mg Inj IV 06/10/17 22:20 12.5 mg STAT ONE Administration Promethazine HCl Confirm 06/10/17 22:26 Phenergan 25 Mg Inj Administered 06/10/17 22:27 Dose 25 mg .ROUTE .STK-MED ONE Lab/Rad Data: Laboratory Result Diagrams 06/10/17 20:00 06/10/17 22:40 Laboratory Results 06/10/17 06/10/17 06/10/17 Range/Units 22:40 20:00 20:00 WBC (4.0-10.5) K/mm3 RBC (4.1-5.4) M/mm3 Hgb (12.0-16.0) gm/dl Hct (35-47) % MCV (78-100) fl MCH (26-32) pg MCHC (32-36) g/dl RDW (11.5-14.0) % Plt Count (150-450) K/mm3 MPV (6-9.5) fl Gran % (36.0-66.0) % Lymphocytes % (24.0-44.0) % Monocytes % (0.0-12.0) % Eosinophils % (0.00-5.0) % Basophils % (0.0-0.4) % Basophils # (0-0.4) Sodium 141 (136-145) mEq/L Potassium 3.7 (3.5-5.1) mEq/L Chloride 108 H (98-107) mEq/L Carbon Dioxide 21.5 (21-32) mEq/L Anion Gap 15.1 H (5-15) MEQ/L BUN 9 (9-20) mg/dL Creatinine 0.84 (0.55-1.30) mg/dl Estimated GFR > 60 ML/MIN Glucose 88 (70-110) MG/DL Calcium 8.5 (8.5-10.1) mg/dL Magnesium 1.8 (1.8-2.4) mg/dL Total Bilirubin (0.2-1.0) mg/dL AST (15-37) U/L ALT (12-78) U/L Alkaline Phosphatase (46-116) U/L Serum Total Protein (6.4-8.2) gm/dL Albumin (3.4-5.0) g/dL Amylase (25-115) U/L Lipase (73-393) U/L Serum , Qual NEGATIVE (Negative) Ur Collection Type Urine Color (YELLOW) Urine Appearance (CLEAR) Urine pH (5-6) Ur Specific Hendricks (1.005-1.025) Urine Protein (Negative) Urine Ketones (NEGATIVE) Urine Blood (0-5) Reymundo/ul Urine Nitrite (NEGATIVE) Urine Bilirubin (NEGATIVE) Urine Urobilinogen (0-1) mg/dL Ur Leukocyte Esterase (NEGATIVE) Urine Microscopic RBC (0-2) /HPF Urine Microscopic WBC (0-5) /HPF Ur Epithelial Cells (FEW) /HPF Urine Bacteria (NEGATIVE) /HPF Urine Mucus (NEGATIVE) /HPF Urine Glucose (NEGATIVE) mg/dL Specimen Received 06/10/17 06/10/17 06/10/17 Range/Units 20:00 20:00 20:00 WBC 4.5 (4.0-10.5) K/mm3 RBC 5.11 (4.1-5.4) M/mm3 Hgb 13.1 (12.0-16.0) gm/dl Hct 39.7 (35-47) % MCV 77.7 L (78-100) fl MCH 25.6 L (26-32) pg MCHC 33.0 (32-36) g/dl RDW 13.2 (11.5-14.0) % Plt Count 224 (150-450) K/mm3 MPV 10.0 H (6-9.5) fl Gran % 56.6 (36.0-66.0) % Lymphocytes % 26.4 (24.0-44.0) % Monocytes % 15.7 H (0.0-12.0) % Eosinophils % 1.1 (0.00-5.0) % Basophils % 0.2 (0.0-0.4) % Basophils # 0.01 (0-0.4) Sodium 137 (136-145) mEq/L Potassium 3.4 L (3.5-5.1) mEq/L Chloride 105 (98-107) mEq/L Carbon Dioxide 22.8 (21-32) mEq/L Anion Gap 12.8 (5-15) MEQ/L BUN 10 (9-20) mg/dL Creatinine 0.94 (0.55-1.30) mg/dl Estimated GFR > 60 ML/MIN Glucose 101 (70-110) MG/DL Calcium 8.8 (8.5-10.1) mg/dL Magnesium (1.8-2.4) mg/dL Total Bilirubin 0.30 (0.2-1.0) mg/dL AST 27 (15-37) U/L ALT 35 (12-78) U/L Alkaline Phosphatase 72 (46-116) U/L Serum Total Protein 7.2 (6.4-8.2) gm/dL Albumin 3.5 (3.4-5.0) g/dL Amylase 32 (25-115) U/L Lipase 120 (73-393) U/L Serum , Qual (Negative) Ur Collection Type CCMS Urine Color YELLOW (YELLOW) Urine Appearance CLEAR (CLEAR) Urine pH 5.0 (5-6) Ur Specific Hendricks 1.020 (1.005-1.025) Urine Protein NEGATIVE (Negative) Urine Ketones NEGATIVE (NEGATIVE) Urine Blood 50 (0-5) Reymundo/ul Urine Nitrite NEGATIVE (NEGATIVE) Urine Bilirubin NEGATIVE (NEGATIVE) Urine Urobilinogen NORMAL (0-1) mg/dL Ur Leukocyte Esterase NEGATIVE (NEGATIVE) Urine Microscopic RBC 0-2 (0-2) /HPF Urine Microscopic WBC 0-2 (0-5) /HPF Ur Epithelial Cells MODERATE (FEW) /HPF Urine Bacteria RARE (NEGATIVE) /HPF Urine Mucus SLIGHT (NEGATIVE) /HPF Urine Glucose NEGATIVE (NEGATIVE) mg/dL Specimen Received [id number] - Progress Discussed with : [place] (MAY GO HOME AFTER IV FLUIDS - 2056.) - Departure Time of Disposition: 23:32 Departure Disposition: Home Clinical Impression: DIARRHEA, VOMITING, ABDOMINAL PAIN, HYPOKALEMIA - CORRECTED IN ER Condition: Stable Critical Care Time: No Referrals: YESICA MARADIAGA MD [Primary Care Provider] - Instructions: Abdominal Pain-Adult, Diarrhea and Traveler's Diarrhea -- Adult, Vomiting -- Adult Additional Instructions: FOLLOW UP WITH PRIVATE DOCTOR TOMORROW. Prescriptions: Promethazine HCl 25 mg [Phenergan 25 mg] 25 mg PO Q4H PRN PRN #14 tablet PRN Reason: Nausea/Vomiting
[2017-06-10 20:25] LABS: BASOPHIL % 0.2 % (0.0-0.4); Eosinophil % 1.1 % (0.00-5.0); Granulocytes % 56.6 % (36.0-66.0); Lymphocytes % 26.4 % (24.0-44.0); Mean Cell Volume 77.7 fl (78-100); Mean Corpuscular Hemoglobin 25.6 pg (26-32); Monocytes % 15.7 % (0.0-12.0); Platelet Count 224 K/mm3 (150-450); Red Blood Count 5.11 M/mm3 (4.1-5.4); Red Cell Distribution Width 13.2 % (11.5-14.0); White Blood Count 4.5 K/mm3 (4.0-10.5)
[2017-06-10] MEDS ORDERED: Hydromorphone 1 mg/ml Ampule ONE ×4 (20:25→22:26)
[2017-06-10] MEDS ORDERED: Phenergan 25 MG INJ ONE ×2 (20:25→22:26)
[2017-06-10] MEDS ORDERED: Sodium Chloride 0.9% 1000 ML 1,000 ML ONE (20:25)
[2017-06-10 20:44] LABS: ALBUMIN 3.5 g/dL (3.4-5.0); ALKALINE PHOSPHATASE 72 U/L (46-116); ANION GAP 12.8 MEQ/L (5-15); BLOOD UREA NITROGEN 10 mg/dL (9-20); CHLORIDE 105 mEq/L (98-107); Carbon Dioxide 22.8 mEq/L (21-32); Collection Type CCMS; Glucose 101 MG/DL (70-110); LIPASE 120 U/L (73-393); Leukocyte Esterase NEGATIVE (NEGATIVE); Potassium 3.4 mEq/L (3.5-5.1); SGOT/AST 27 U/L (15-37); SGPT/ALT 35 U/L (12-78); SODIUM 137 mEq/L (136-145); Total Protein 7.2 gm/dL (6.4-8.2)
[2017-06-10 20:45] LABS: Bilirubin NEGATIVE (NEGATIVE); Blood 50 Ery/ul (0-5); COMPLETE URINE MICROSCOPIC? YES; Glucose NEGATIVE (NEGATIVE); Mucus SLIGHT /HPF (NEGATIVE); WBC 0-2 /HPF (0-5)
[2017-06-10 20:46] LABS: ADD URINE CULTURE? NO (NO); Bacteria RARE /HPF (NEGATIVE); Epithelial Cells MODERATE /HPF (FEW)
[2017-06-10] MEDS ORDERED: Sodium Chloride 0.9% W/ 20 mEq KCl/LITER 1,000 ML IV ONE (21:00)
[2017-06-10] MEDS ORDERED: Sodium Chloride 0.9% W/ 20 mEq KCl/LITER 1,000 ML IV SCH (21:00)
[2017-06-10] MEDS ORDERED: Zofran 4 MG/2 ML VIAL IV ONE (21:18)
[2017-06-10] MEDS ORDERED: Zofran 4 MG/2 ML VIAL ONE (21:26)
[2017-06-10 23:14] LABS: ANION GAP 15.1 MEQ/L (5-15); BLOOD UREA NITROGEN 9 mg/dL (9-20); CHLORIDE 108 mEq/L (98-107); Carbon Dioxide 21.5 mEq/L (21-32); Glucose 88 MG/DL (70-110); Potassium 3.7 mEq/L (3.5-5.1); SODIUM 141 mEq/L (136-145)
[2017-06-10] MEDS ORDERED: PHENERGAN 25 MG PO ONE (23:54)
[2017-06-11] VITALS: BP 119/68; PULSE 74; O2SAT 96
[2017-06-11] MEDS ORDERED: PHENERGAN 25 MG ONE (00:03)
--- NOTE | 2017-06-11 13:38 | XRAY ---
Exam: Acute obstructive series from 06/10/2017. Comparison: Acute obstructive series from 02/14/2017. Indication: Right upper quadrant abdominal pain, patient states she is being treated for Crohn's disease. Findings: Upright PA film of the chest and supine and upright films of the abdomen were obtained. The heart size and contour are normal. The mayra and mediastinal structures appear unremarkable. The lungs are adequately expanded. No air space infiltrates, vascular congestion, pneumothorax, or pleural fluid is seen. There is minimal convexity of the mid thoracic spine toward the right. The bowel gas pattern appears unremarkable. I do note scattered air-fluid levels across the midabdomen within nondilated bowel on the upright image. No free intraperitoneal air is seen. No hepatosplenomegaly is seen. No suspicious abdominal calcifications are seen. There is minimal convexity of the upper lumbar spine toward the right centered at L1-L2 on the upright image.. There is a transitional vertebra at the lumbosacral junction represents L6. No acute osseous process is seen. Impression: 1. No acute cardiopulmonary disease is seen. 2. Nonspecific bowel gas pattern with is multiple scattered air-fluid levels across the midabdomen within nondilated bowel. Correlate clinically regarding enteritis or an ileus. No free intraperitoneal air is seen.
--- NOTE | 2017-06-11 15:39 | XRAY ---
Exam: CT of the abdomen and pelvis without IV contrast from 06/10/2017. CTDI: 23.68 I mL Comparison: CT of the abdomen and pelvis with IV contrast from 02/15/2017. Indication: Right upper quadrant abdominal pain, patient states she has Crohn's disease. Technique: Non-IV contrast axial images were obtained through the abdomen and pelvis. Reconstructed coronal and sagittal images were created and reviewed. No oral contrast was given. Findings: On axial image #2 and #3 of series #2, there is a soft tissue nodular density within the medial aspect of the right middle lobe measuring about 8.5 mm in diameter. This portion of the lungs was not included on the prior CT abdomen and pelvis from 02/15/2017. However, upon comparison to a CT of the chest from 09/25/2015, this lung nodule is new from that time. Therefore, I believe further evaluation with a CT of the chest with IV contrast is indicated at this time. In addition, there is a nonspecific subpleural 4 mm nodule posterolaterally at the right lung base on axial image #8, which is unchanged from both 02/15/2017 and 09/25/2015. Also, I note 2 small nodules at the posterior left lung base on axial image #2 of series #2 which are incompletely included on the prior abdomen CT, but are included on the CT of the chest from 09/25/2015. The more medial nodule measures about 5 mm in diameter and the lateral nodule measures about 4 mm in diameter. These 2 nodules can be seen on axial image #31 from 09/25/2015 suggesting that they are probably nonaggressive. The liver appears unremarkable. No intrahepatic biliary duct distention is seen. The gallbladder is of average size. I see no wall thickening or dense calcifications within it. However, on axial image #25 of series #2 I see several tiny punctate soft tissue attenuation densities within the projection of the gallbladder of uncertain significance. The gallbladder ultrasound from 02/15/2017 revealed no definite gallstones, but that exam was technically difficult and it is not impossible that small gallstones could have been missed by that exam. Consider the need for a repeat gallbladder ultrasound. Spleen remains mildly enlarged measuring 14.0 cm in greatest diameter on axial image #24 of series #2. No splenic mass is seen. The pancreas and adrenal glands appear normal. A tiny duodenal diverticulum on axial image #33 and #34 cannot be excluded. The kidneys appear of unremarkable size and shape. No renal calculi or hydronephrosis is seen. The ureters appear of normal diameter and reveal no ureterolith or urinary bladder stone. The abdominal aorta is of normal diameter. No abnormal retroperitoneal lymphadenopathy is seen. Abundant intraperitoneal and subcutaneous fat density is seen. The anterior abdominal wall appears intact. No bowel distention or evidence of obstruction is seen. The appendix appears unremarkable within the right lower quadrant. A mild amount of scattered stool is seen within the colon. Minimal sigmoid colon diverticulosis is seen. The uterus is anteflexed and tilted slightly to the right of midline. Both ovaries are of normal size. Previously noted cyst within the right ovary is no longer seen. No free intraperitoneal fluid or enlarged pelvic lymph nodes are seen. The urinary bladder appears unremarkable. No acute fracture or aggressive bone lesion is seen. There is again noted to be a transitional vertebra just inferior to L5 at the lumbosacral junction. Impression: 1. There are a couple soft tissue nodules at each lung base. 3 of these appear unchanged from a CT of the chest from 09/25/2015 suggesting that they're likely nonaggressive. However, an 8.5 mm nodule at the posterior medial aspect of the right middle lobe on axial images #2 and #3 of series #2 appears to be new from 09/25/2015. Further evaluation with a CT of the chest with IV contrast is recommended at this time as a baseline. 2. I see no dense calcifications within a partially distended gallbladder. However, on axial image #25 there are several scattered tiny soft tissue attenuation densities within the projection of the gallbladder lumen of unknown significance. The possibility of tiny noncalcified stones is not completely excluded, although no gallstones were seen on the prior gallbladder ultrasound of 02/18/2017. The prior gallbladder ultrasound was technically difficult due to the patient's body habitus. Consider further evaluation with a repeat gallbladder ultrasound. 3. Mild splenomegaly representing no change. 4. Prior leaking right ovarian cyst is no longer seen. No other acute process is seen within the abdomen or pelvis. 5. Minimal sigmoid colon diverticulosis. 6. Normal appendix.
== END 2017-06-11 00:09 | disposition home or self-care (01) ==
LOC: ED 19:48
DX: R19.7 Diarrhea, unspecified (principal); R11.2 Nausea with vomiting, unspecified; R11.10 Vomiting, unspecified; R10.9 Unspecified abdominal pain; E87.6 Hypokalemia
CPT/HCPCS: 36000; 36415; 74022; 74176; 80048; 80053; 81000; 82150; 83690; 83735; 84703; 85025; 96360; 96361; 96365; 96366; 96374; 96375; 99284; J1170; J2405; J2550; A9270-GY

== ENCOUNTER 2017-07-08 21:42 | Emergency (ER) | payer OTHER ==
[2017-07-08] MEDS ORDERED: BENADRYL 50 MG/ML IV ONE ×2 (22:02→22:53)
[2017-07-08] MEDS ORDERED: SUBLIMAZE 100 MCG/2 ML IV ONE ×2 (22:02→22:53)
[2017-07-08] MEDS ORDERED: Pepcid 20 MG VIAL IV ONE ×2 (22:02→22:09)
[2017-07-08] MEDS ORDERED: Sodium Chloride 0.9% 1000 ML 1,000 ML IV STA (22:02)
[2017-07-08] MEDS ORDERED: SUBLIMAZE 100 MCG/2 ML ONE ×2 (22:09→22:56)
[2017-07-08] MEDS ORDERED: Sodium Chloride 0.9% 1000 ML 1,000 ML ONE (22:09)
[2017-07-08] MEDS ORDERED: BENADRYL 50 MG/ML ONE ×2 (22:09→22:55)
--- NOTE | 2017-07-08 22:09 | ERPHSYRPT ---
- History of Present Illness Time Seen by Provider: 07/08/17 21:54 Source: patient Patient Subjective Stated Complaint: pt is co right side abd pain tonight she had her gallbladder removed 1 week ago -ate cereal no diarrhea no vomiting no fever states pain readiates to back at times no releif with 2 percocet every 4 hours Triage Nursing Assessment: pt is awake and aler and able to answer questions - moaning and holding her right side Physician History: CC: abd pain Hx: 26 y/o patient of Dr moss had cholecystectom laparoscpically last week per Dr Lopez at [facility]. She is taking percocet. She has increased RUQ abd pain. Called surgeon and was told to come to ER. Not yellow. No fever or chills. No cough or dyspnea. Normal urination. States not . Found out she was allergic to toradol with rash at [facility]. Pain moderate to severe and not better with her percocet. Severity: severe Allergies/Adverse Reactions: latex Allergy (Severe, Verified 03/24/17 19:17) STOPPED BREATHING levothyroxine sodium [From Synthroid] Allergy (Verified 03/24/17 19:17) methylphenidate [From Ritalin] Allergy (Verified 03/24/17 19:17) aspirin Adverse Reaction (Mild, Verified 03/24/17 19:17) Vomiting flu Allergy (Uncoded 06/10/17 20:17) medidate Adverse Reaction (Mild, Uncoded 03/24/17 19:17) VOMTIING Home Medications: Thyroid,Pork [[place] Thyroid] 60 mg PO DAILY 11/18/16 [History] Albuterol 2.5 mg/3 ml Neb [Proventil 2.5 mg/3 ml Neb] 1 each IH Q4H PRN PRN 02/15/17 [History] Albuterol 8 gm Mdi Hfa [Ventolin Hfa MDI] 8 gm IH Q4H PRN PRN 02/15/17 [ History] Hx Tetanus, Diphtheria Vaccination/Date Given: Yes Hx Influenza Vaccination/Date Given: No Hx Pneumococcal Vaccination/Date Given: No - Review of Systems Constitutional: Weakness, No Fever, No Chills Eyes: No Symptoms Ears, Nose, & Throat: No Symptoms Respiratory: No Cough, No Dyspnea Cardiac: No Chest Pain Abdominal/Gastrointestinal: Abdominal Pain, No Vomiting, No Diarrhea Genitourinary Symptoms: No Dysuria Musculoskeletal: No Back Pain Skin: No Rash Neurological: No Headache All Other Systems: Reviewed and Negative - Past Medical History Pertinent Past Medical History: Yes Neurological History: Migraines ENT History: No Pertinent History Cardiac History: Arrhythmia, Other Respiratory History: Asthma Endocrine Medical History: Hypothyroidism Musculoskeletal History: No Pertinent History GI Medical History: No Pertinent History, Crohns Disease History: No Pertinent History Psycho-Social History: Attention Deficit Disorder Female Reproductive Disorders: No Pertinent History Other Medical History: Bradycardia, hypotension (usual 90s/60s) - Past Surgical History Past Surgical History: Yes Neuro Surgical History: No Pertinent History Cardiac: No Pertinent History Respiratory: No Pertinent History Gastrointestinal: Cholecystectomy Genitourinary: No Pertinent History Female Surgical History: Section Other Surgical History: egd, colonoscopy lap jeramie 07/01/2017 - Social History Smoking Status: Never smoker Exposure to second hand smoke: No Drug Use: none Patient Lives Alone: No Significant Family History: cancer (colon/breast), diabetes, other (Gall bladder disease) - Female History Hx Last Menstrual Period: last week Hx Now: No - Nursing Vital Signs Nursing Vital Signs: Initial Vital Signs Temperature 97.9 F 07/08/17 21:51 Pulse Rate 88 07/08/17 21:51 Respiratory Rate 20 07/08/17 21:51 Blood Pressure 137/94 07/08/17 21:51 O2 Sat by Pulse Oximetry 97 07/08/17 21:51 Pain Scale Pain Intensity 6 - Physical Exam General Appearance: alert Eye Exam: PERRL/EOMI, EOM palsy/anisocoria Ears, Nose, Throat Exam: moist mucous membranes Neck Exam: normal inspection, non-tender, supple Respiratory Exam: normal breath sounds, lungs clear Cardiovascular Exam: regular rate/rhythm Gastrointestinal/Abdomen Exam: soft, tenderness (RUQ, incisions c,d,i; nondistended) Back Exam: normal inspection, normal range of motion Extremity Exam: normal inspection, normal range of motion Neurologic Exam: alert, oriented x 3, cooperative Skin Exam: normal color, warm, dry, No rash SpO2 Interpretation: normal SpO2: 97 Oxygen Delivery: Room Air - Course Nursing assessment & vital signs reviewed: Yes - CT Exams abd/pelvis CT Interpretation: Negative, Tele-radiologist Report Ordered Tests: Active Orders 24 hr Category Date Time Status Clean Catch Urine Specimen STAT Care 07/08/17 21:49 Active IV Insertion STAT Care 07/08/17 22:02 Active NPO (ED) STAT Care 07/08/17 22:02 Active ABDOMEN AND PELVIS W CONTRAST [CT] Stat Exams 07/08/17 22:02 Taken CBC W DIFF Stat Lab 07/08/17 22:00 Completed CMP Stat Lab 07/08/17 22:00 Completed HCG,QUALITATIVE URINE Stat Lab 07/08/17 22:00 Completed LIPASE Stat Lab 07/08/17 22:00 Completed UA W/ MICROSCOPIC Stat Lab 07/08/17 22:00 Completed Medication Summary Discontinued Medications Generic Name Dose Route Start Last Admin Trade Name Freq PRN Reason Stop Dose Admin Diphenhydramine HCl 25 mg 07/08/17 22:02 07/08/17 22:15 Benadryl 50 Mg/Ml IV 07/08/17 22:03 25 mg STAT ONE Administration Diphenhydramine HCl Confirm 07/08/17 22:09 Benadryl 50 Mg/Ml Administered 07/08/17 22:10 Dose 50 mg .ROUTE .STK-MED ONE Diphenhydramine HCl 25 mg 07/08/17 22:53 07/08/17 22:58 Benadryl 50 Mg/Ml IV 07/08/17 22:54 25 mg STAT ONE Administration Diphenhydramine HCl Confirm 07/08/17 22:55 Benadryl 50 Mg/Ml Administered 07/08/17 22:56 Dose 50 mg .ROUTE .STK-MED ONE Famotidine 20 mg 07/08/17 22:02 07/08/17 22:14 Pepcid 20 Mg Vial IV 07/08/17 22:03 20 mg STAT ONE Administration Famotidine Confirm 07/08/17 22:09 Pepcid 20 Mg Vial Administered 07/08/17 22:10 Dose 20 mg IV .STK-MED ONE Fentanyl Citrate 50 mcg 07/08/17 22:02 07/08/17 22:17 Sublimaze 100 Mcg/2 Ml IV 07/08/17 22:03 50 mcg STAT ONE Administration Fentanyl Citrate Confirm 07/08/17 22:09 Sublimaze 100 Mcg/2 Ml Administered 07/08/17 22:10 Dose 100 mcg .ROUTE .STK-MED ONE Fentanyl Citrate 50 mcg 07/08/17 22:53 07/08/17 22:58 Sublimaze 100 Mcg/2 Ml IV 07/08/17 22:54 50 mcg STAT ONE Administration Fentanyl Citrate Confirm 07/08/17 22:56 Sublimaze 100 Mcg/2 Ml Administered 07/08/17 22:57 Dose 100 mcg .ROUTE .STK-MED ONE Sodium Chloride 1,000 mls @ 999 mls/hr 07/08/17 22:02 07/08/17 22:11 Sodium Chloride 0.9% 1000 Ml IV 07/08/17 23:02 999 mls/hr .Q1H1M STA Administration Sodium Chloride Confirm 07/08/17 22:09 Sodium Chloride 0.9% 1000 Ml Administered 07/08/17 22:10 Dose 1,000 mls @ ud .ROUTE .STK-MED ONE Lab/Rad Data: Laboratory Result Diagrams 07/08/17 22:00 07/08/17 22:00 Laboratory Results 07/08/17 07/08/17 07/08/17 Range/Units 22:00 22:00 22:00 WBC 6.2 (4.0-10.5) K/mm3 RBC 5.32 (4.1-5.4) M/mm3 Hgb 13.2 (12.0-16.0) gm/dl Hct 40.8 (35-47) % MCV 76.7 L (78-100) fl MCH 24.8 L (26-32) pg MCHC 32.4 (32-36) g/dl RDW 13.5 (11.5-14.0) % Plt Count 238 (150-450) K/mm3 MPV 10.2 H (6-9.5) fl Gran % 54.1 (36.0-66.0) % Lymphocytes % 35.2 (24.0-44.0) % Monocytes % 7.3 (0.0-12.0) % Eosinophils % 3.1 (0.00-5.0) % Basophils % 0.3 (0.0-0.4) % Basophils # 0.02 (0-0.4) Sodium 139 (136-145) mEq/L Potassium 3.6 (3.5-5.1) mEq/L Chloride 105 (98-107) mEq/L Carbon Dioxide 23.5 (21-32) mEq/L Anion Gap 14.1 (5-15) MEQ/L BUN 12 (9-20) mg/dL Creatinine 0.80 (0.55-1.30) mg/dl Estimated GFR > 60 ML/MIN Glucose 98 (70-110) MG/DL Calcium 8.6 (8.5-10.1) mg/dL Total Bilirubin 0.20 (0.2-1.0) mg/dL AST 43 H (15-37) U/L ALT 74 (12-78) U/L Alkaline Phosphatase 84 (46-116) U/L Serum Total Protein 6.9 (6.4-8.2) gm/dL Albumin 3.3 L (3.4-5.0) g/dL Lipase 145 (73-393) U/L Ur Collection Type Urine Color (YELLOW) Urine Appearance (CLEAR) Urine pH (5-6) Ur Specific [place] (1.005-1.025) Urine Protein (Negative) Urine Ketones (NEGATIVE) Urine Blood (0-5) Reymundo/ul Urine Nitrite (NEGATIVE) Urine Bilirubin (NEGATIVE) Urine Urobilinogen (0-1) mg/dL Ur Leukocyte Esterase (NEGATIVE) Urine Microscopic RBC (0-2) /HPF Urine Microscopic WBC (0-5) /HPF Ur Epithelial Cells (FEW) /HPF Urine Bacteria (NEGATIVE) /HPF Urine Glucose (NEGATIVE) mg/dL Urine HCG, Qual NEGATIVE (Negative) Specimen Received 07/08/17 Range/Units 22:00 WBC (4.0-10.5) K/mm3 RBC (4.1-5.4) M/mm3 Hgb (12.0-16.0) gm/dl Hct (35-47) % MCV (78-100) fl MCH (26-32) pg MCHC (32-36) g/dl RDW (11.5-14.0) % Plt Count (150-450) K/mm3 MPV (6-9.5) fl Gran % (36.0-66.0) % Lymphocytes % (24.0-44.0) % Monocytes % (0.0-12.0) % Eosinophils % (0.00-5.0) % Basophils % (0.0-0.4) % Basophils # (0-0.4) Sodium (136-145) mEq/L Potassium (3.5-5.1) mEq/L Chloride (98-107) mEq/L Carbon Dioxide (21-32) mEq/L Anion Gap (5-15) MEQ/L BUN (9-20) mg/dL Creatinine (0.55-1.30) mg/dl Estimated GFR ML/MIN Glucose (70-110) MG/DL Calcium (8.5-10.1) mg/dL Total Bilirubin (0.2-1.0) mg/dL AST (15-37) U/L ALT (12-78) U/L Alkaline Phosphatase (46-116) U/L Serum Total Protein (6.4-8.2) gm/dL Albumin (3.4-5.0) g/dL Lipase (73-393) U/L Ur Collection Type CCMS Urine Color YELLOW (YELLOW) Urine Appearance CLEAR (CLEAR) Urine pH 6.0 (5-6) Ur Specific [place] 1.025 (1.005-1.025) Urine Protein NEGATIVE (Negative) Urine Ketones NEGATIVE (NEGATIVE) Urine Blood TRACE NON-HEM (0-5) Reymundo/ul Urine Nitrite NEGATIVE (NEGATIVE) Urine Bilirubin NEGATIVE (NEGATIVE) Urine Urobilinogen NORMAL (0-1) mg/dL Ur Leukocyte Esterase NEGATIVE (NEGATIVE) Urine Microscopic RBC 0-2 (0-2) /HPF Urine Microscopic WBC 0-2 (0-5) /HPF Ur Epithelial Cells MODERATE (FEW) /HPF Urine Bacteria RARE (NEGATIVE) /HPF Urine Glucose NEGATIVE (NEGATIVE) mg/dL Urine HCG, Qual (Negative) Specimen Received 07-08-17 2223 - Progress Progress Note: 07/08/17 22:06 She has post cholecystectomy pain which she feels is out of the ordinary. Discussed pros and cons of CT including radiation or cancer risk. She wants CT. LAbs ordered. Old chart reviewed and she has quite a but of visits for various reasons and had pain referral at one point. 07/08/17 23:13 Pt was medicated. Labs and CT reassuring. Advised follow up with surgeon. Counseled pt/family regarding: lab results, diagnosis, need for follow-up, rad results - Departure Time of Disposition: 23:15 Departure Disposition: Home Clinical Impression: post cholecystectomy abdominal pain Condition: Stable Critical Care Time: No Referrals: YESICA MOSS MD [Primary Care Provider] - MELONY CARTAGENA MD [NON-STAFF PHY W/O PRIVILEGES] - Instructions: Abdominal Pain-Adult, Cholecystectomy Additional Instructions: Take your percocet as already prescribed. Follow up with Dr Cartagena. No driving.
[2017-07-08 22:21] LABS: BASOPHIL % 0.3 % (0.0-0.4); Eosinophil % 3.1 % (0.00-5.0); Granulocytes % 54.1 % (36.0-66.0); Lymphocytes % 35.2 % (24.0-44.0); Mean Cell Volume 76.7 fl (78-100); Mean Corpuscular Hemoglobin 24.8 pg (26-32); Mean Platelet Volume 10.2 fl (6-9.5); Monocytes % 7.3 % (0.0-12.0); Platelet Count 238 K/mm3 (150-450); Red Blood Count 5.32 M/mm3 (4.1-5.4); Red Cell Distribution Width 13.5 % (11.5-14.0); White Blood Count 6.2 K/mm3 (4.0-10.5)
[2017-07-08 22:23] LABS: Collection Type CCMS; Leukocyte Esterase NEGATIVE (NEGATIVE)
[2017-07-08 22:24] LABS: ADD URINE CULTURE? NO (NO); Bacteria RARE /HPF (NEGATIVE); Bilirubin NEGATIVE (NEGATIVE); Blood TRACE NON-HEM Ery/ul (0-5); COMPLETE URINE MICROSCOPIC? YES; Epithelial Cells MODERATE /HPF (FEW); Glucose NEGATIVE (NEGATIVE); WBC 0-2 /HPF (0-5)
[2017-07-08 22:38] LABS: ALBUMIN 3.3 g/dL (3.4-5.0); ALKALINE PHOSPHATASE 84 U/L (46-116); ANION GAP 14.1 MEQ/L (5-15); BLOOD UREA NITROGEN 12 mg/dL (9-20); CHLORIDE 105 mEq/L (98-107); Carbon Dioxide 23.5 mEq/L (21-32); Glucose 98 MG/DL (70-110); LIPASE 145 U/L (73-393); Potassium 3.6 mEq/L (3.5-5.1); SGOT/AST 43 U/L (15-37); SGPT/ALT 74 U/L (12-78); SODIUM 139 mEq/L (136-145); Total Protein 6.9 gm/dL (6.4-8.2)
[2017-07-08 22:54] VITALS: BP 154/87; PULSE 84
[2017-07-08 23:17] VITALS: O2SAT 97
--- NOTE | 2017-07-09 09:13 | XRAY ---
Indication: Abdominal pain. Status post cholecystectomy. Multiple contiguous axial images obtained through the abdomen and pelvis using 80 cc Isovue 370 contrast only. Comparison: Noncontrast exam June 10, 2017. Lung bases demonstrate stable 4 mm right subpleural noncalcified nodule. No infiltrate or effusion. Heart is not enlarged. Stomach is distended with food. Noncontrasted bowel loops appear nonobstructed. There is mild diffuse scattered colonic fecal debris including rectum. Normal appendix. Interval cholecystectomy. No free fluid/air. Spleen remains enlarged today measuring 14.6 cm in greatest axial dimension. Remaining liver, pancreas, spleen, adrenal glands, kidneys, ureters, bladder, uterus, and aorta appear unremarkable. No pathologic retroperitoneal lymphadenopathy. Impression: 1. Status post cholecystectomy without complications. 2. Mild fecal stasis without obstruction. 3. Again incidental splenomegaly. 4. Stable right lung base noncalcified micronodule dating back to September 25, 2015 and favored to be benign given stability. Comment: Preliminary interpretation was made by C. No discrepancy. CT DI 23.68
== END 2017-07-08 23:22 | disposition home or self-care (01) ==
LOC: ED 21:42
DX: G89.18 Other acute postprocedural pain (principal)
CPT/HCPCS: 36000; 36415; 74177; 80053; 81000; 83690; 84703; 85025; 96360; 96374; 96375; 96376; 99284; J1200; J3010

== ENCOUNTER 2017-10-03 15:57 | Emergency (ER) | payer SELFPAY ==
--- NOTE | 2017-10-03 16:15 | ERPHSYRPT ---
- History of Present Illness Historian: patient Exam Limitations: no limitations Hx Tetanus, Diphtheria Vaccination/Date Given: Yes Hx Influenza Vaccination/Date Given: No Hx Pneumococcal Vaccination/Date Given: No <DENEEN RUCKER - Last Filed: 10/03/17 18:36> <BRIANNE NO - Last Filed: 10/03/17 20:47> - History of Present Illness Time Seen by Provider: 10/03/17 16:13 Physician History: mild to mod new onset at 11am on and off left flank pain, hx renal stones, no injury, no fever, no NV, miscarriage last September (DENEEN RUCKER) Allergies/Adverse Reactions: latex Allergy (Severe, Verified 03/24/17 19:17) STOPPED BREATHING ketorolac [From Toradol] Allergy (Verified 10/03/17 16:03) levothyroxine sodium [From Synthroid] Allergy (Verified 03/24/17 19:17) methylphenidate [From Ritalin] Allergy (Verified 03/24/17 19:17) aspirin Adverse Reaction (Mild, Verified 03/24/17 19:17) Vomiting flu Allergy (Uncoded 06/10/17 20:17) medidate Adverse Reaction (Mild, Uncoded 03/24/17 19:17) VOMTIING Home Medications: Thyroid,Pork [[place] Thyroid] 60 mg PO DAILY 11/18/16 [History] Albuterol 2.5 mg/3 ml Neb [Proventil 2.5 mg/3 ml Neb] 1 each IH Q4H PRN PRN 02/15/17 [History] Albuterol 8 gm Mdi Hfa [Ventolin Hfa MDI] 8 gm IH Q4H PRN PRN 02/15/17 [ History] Fluticasone/Vilanterol [Breo Ellipta 200-25 Mcg INH] 1 puff IH UD 10/03/17 [ History] - Review of Systems Constitutional: No Symptoms Eyes: No Symptoms Ears, Nose, & Throat: No Symptoms Respiratory: No Symptoms Cardiac: No Symptoms Abdominal/Gastrointestinal: Abdominal Pain, No Vomiting Musculoskeletal: No Back Pain Skin: No Symptoms Neurological: No Dizziness Psychological: No Symptoms <DENEEN RUCKER - Last Filed: 10/03/17 18:36> - Past Medical History Pertinent Past Medical History: Yes Neurological History: Migraines ENT History: No Pertinent History Cardiac History: Arrhythmia, Other Respiratory History: Asthma Endocrine Medical History: Hypothyroidism Musculoskeletal History: No Pertinent History GI Medical History: No Pertinent History, Crohns Disease History: No Pertinent History Psycho-Social History: Attention Deficit Disorder Female Reproductive Disorders: No Pertinent History Other Medical History: Bradycardia, hypotension (usual 90s/60s) - Past Surgical History Past Surgical History: Yes Neuro Surgical History: No Pertinent History Cardiac: No Pertinent History Respiratory: No Pertinent History Gastrointestinal: Cholecystectomy Genitourinary: No Pertinent History Female Surgical History: Section Other Surgical History: egd, colonoscopy lap jeramie 07/01/2017 - Social History Smoking Status: Never smoker Exposure to second hand smoke: No Drug Use: none Patient Lives Alone: No Significant Family History: cancer (colon/breast), diabetes, other (Gall bladder disease) <DENEEN RUCKER - Last Filed: 10/03/17 18:36> - Physical Exam General Appearance: no apparent distress Eye Exam: PERRL/EOMI Ears, Nose, Throat Exam: moist mucous membranes Neck Exam: normal inspection Respiratory Exam: normal breath sounds Cardiovascular Exam: regular rate/rhythm Gastrointestinal/Abdomen Exam: soft, tenderness, No distention Back Exam: CVA tenderness Extremity Exam: normal inspection, No pedal edema Neurologic Exam: alert, oriented x 3, cooperative Skin Exam: normal color, warm, dry <DENEEN RUCKER - Last Filed: 10/03/17 18:36> - Nursing Vital Signs Nursing Vital Signs: Initial Vital Signs Temperature 98.7 F 10/03/17 16:03 Pulse Rate 90 10/03/17 16:03 Respiratory Rate 16 10/03/17 16:03 Blood Pressure 136/88 10/03/17 16:03 O2 Sat by Pulse Oximetry 97 10/03/17 16:03 Pain Scale Pain Intensity 5 - Radiology Ultrasound Exam OB Ultrasound: Other (TECH REPORT: NO FETUS SEEN IN TUBES OR UTERUS.) <BRIANNE NO - Last Filed: 10/03/17 20:47> Ordered Tests: Active Orders 24 hr Category Date Time Status Clean Catch Urine Specimen STAT Care 10/03/17 16:19 Active EKG-ER Only STAT Care 10/03/17 16:11 Active IV Insertion STAT Care 10/03/17 16:11 Active OB LIMITED [US] Stat Exams 10/03/17 Ordered CBC W DIFF Stat Lab 10/03/17 16:48 Completed CMP Stat Lab 10/03/17 16:48 Completed CULTURE,URINE Stat Lab 10/03/17 16:31 Received HCG QUALITATIVE,SERUM Stat Lab 10/03/17 16:48 Completed HCG, Quantitative (Inhouse) Stat Lab 10/03/17 16:45 Completed LIPASE Stat Lab 10/03/17 16:48 Completed TROPONIN Q3H Lab 10/03/17 16:48 Completed TROPONIN Q3H Lab 10/04/17 01:15 Ordered TROPONIN Q3H Lab 10/04/17 04:15 Ordered UA W/ MICROSCOPIC Stat Lab 10/03/17 16:31 Completed Medication Summary Discontinued Medications Generic Name Dose Route Start Last Admin Trade Name Freq PRN Reason Stop Dose Admin Ceftriaxone Sodium/Dextrose 1 g in 50 mls @ 100 mls/hr 10/03/17 19:21 19:35 Rocephin 1 Gm-D5w 50 Ml Bag IV 10/03/17 19:50 100 mls/hr STAT STA Administration Ceftriaxone Sodium/Dextrose Confirm 10/03/17 19:25 Rocephin 1 Gm-D5w 50 Ml Bag Administered 10/03/17 19:26 Dose 1 g in 50 mls @ ud IV .STK-MED ONE Ondansetron HCl 4 mg 10/03/17 17:54 10/03/17 17:57 Zofran 4 Mg/2 Ml Vial IV 10/03/17 17:55 4 mg STAT ONE Administration Ondansetron HCl Confirm 10/03/17 17:55 Zofran 4 Mg/2 Ml Vial Administered 10/03/17 17:56 Dose 4 mg .ROUTE .STK-MED ONE Potassium Chloride 10 meq 10/03/17 19:22 10/03/17 19:35 Klor Con 10 Meq PO 10/03/17 19:23 10 meq STAT ONE Administration Potassium Chloride Confirm 10/03/17 19:25 Klor Con 10 Meq Administered 10/03/17 19:26 Dose 10 meq PO .STK-MED ONE Promethazine HCl 12.5 mg 10/03/17 19:30 10/03/17 19:34 Phenergan 25 Mg Inj IV 10/03/17 19:31 12.5 mg STAT ONE Administration Promethazine HCl Confirm 10/03/17 19:31 Phenergan 25 Mg Inj Administered 10/03/17 19:32 Dose 25 mg .ROUTE .STK-MED ONE Lab/Rad Data: Laboratory Result Diagrams 10/03/17 16:48 10/03/17 16:48 Laboratory Results 10/03/17 10/03/17 10/03/17 Range/Units 16:48 16:48 16:48 WBC (4.0-10.5) K/mm3 RBC (4.1-5.4) M/mm3 Hgb (12.0-16.0) gm/dl Hct (35-47) % MCV (78-100) fl MCH (26-32) pg MCHC (32-36) g/dl RDW (11.5-14.0) % Plt Count (150-450) K/mm3 MPV (6-9.5) fl Gran % (36.0-66.0) % Lymphocytes % (24.0-44.0) % Monocytes % (0.0-12.0) % Eosinophils % (0.00-5.0) % Basophils % (0.0-0.4) % Basophils # (0-0.4) Sodium 139 (136-145) mEq/L Potassium 3.4 L (3.5-5.1) mEq/L Chloride 105 (98-107) mEq/L Carbon Dioxide 21.2 (21-32) mEq/L Anion Gap 16.5 H (5-15) MEQ/L BUN 8 L (9-20) mg/dL Creatinine 0.69 (0.55-1.30) mg/dl Estimated GFR > 60 ML/MIN Glucose 79 (70-110) MG/DL Calcium 8.3 L (8.5-10.1) mg/dL Total Bilirubin 0.40 (0.2-1.0) mg/dL AST 21 (15-37) U/L ALT 33 (12-78) U/L Alkaline Phosphatase 66 (46-116) U/L Troponin I < 0.017 (0.000-0.056) ng/ml Serum Total Protein 6.5 (6.4-8.2) gm/dL Albumin 3.3 L (3.4-5.0) g/dL Lipase 106 (73-393) U/L Beta HCG, Quant (0-6) IU/L Serum , Qual POSITIVE (Negative) Ur Collection Type Urine Color (YELLOW) Urine Appearance (CLEAR) Urine pH (5-6) Ur Specific [place] (1.005-1.025) Urine Protein (Negative) Urine Ketones (NEGATIVE) Urine Blood (0-5) Reymundo/ul Urine Nitrite (NEGATIVE) Urine Bilirubin (NEGATIVE) Urine Urobilinogen (0-1) mg/dL Ur Leukocyte Esterase (NEGATIVE) Urine Microscopic RBC (0-2) /HPF Urine Microscopic WBC (0-5) /HPF Ur Epithelial Cells (FEW) /HPF Urine Bacteria (NEGATIVE) /HPF Urine Mucus (NEGATIVE) /HPF Urine Culture Reflexed (NO) Urine Glucose (NEGATIVE) mg/dL Specimen Received 10/03/17 10/03/17 10/03/17 Range/Units 16:48 16:45 16:31 WBC 5.1 (4.0-10.5) K/mm3 RBC 4.63 (4.1-5.4) M/mm3 Hgb 11.8 L (12.0-16.0) gm/dl Hct 35.9 (35-47) % MCV 77.5 L (78-100) fl MCH 25.4 L (26-32) pg MCHC 32.9 (32-36) g/dl RDW 14.1 H (11.5-14.0) % Plt Count 221 (150-450) K/mm3 MPV 10.0 H (6-9.5) fl Gran % 49.7 (36.0-66.0) % Lymphocytes % 41.8 (24.0-44.0) % Monocytes % 6.4 (0.0-12.0) % Eosinophils % 1.9 (0.00-5.0) % Basophils % 0.2 (0.0-0.4) % Basophils # 0.01 (0-0.4) Sodium (136-145) mEq/L Potassium (3.5-5.1) mEq/L Chloride (98-107) mEq/L Carbon Dioxide (21-32) mEq/L Anion Gap (5-15) MEQ/L BUN (9-20) mg/dL Creatinine (0.55-1.30) mg/dl Estimated GFR ML/MIN Glucose (70-110) MG/DL Calcium (8.5-10.1) mg/dL Total Bilirubin (0.2-1.0) mg/dL AST (15-37) U/L ALT (12-78) U/L Alkaline Phosphatase (46-116) U/L Troponin I (0.000-0.056) ng/ml Serum Total Protein (6.4-8.2) gm/dL Albumin (3.4-5.0) g/dL Lipase (73-393) U/L Beta HCG, Quant 1435 H (0-6) IU/L Serum , Qual (Negative) Ur Collection Type CCMS Urine Color YELLOW (YELLOW) Urine Appearance HAZY (CLEAR) Urine pH 5.0 (5-6) Ur Specific [place] 1.020 (1.005-1.025) Urine Protein NEGATIVE (Negative) Urine Ketones NEGATIVE (NEGATIVE) Urine Blood NEGATIVE (0-5) Reymundo/ul Urine Nitrite NEGATIVE (NEGATIVE) Urine Bilirubin NEGATIVE (NEGATIVE) Urine Urobilinogen NORMAL (0-1) mg/dL Ur Leukocyte Esterase TRACE (NEGATIVE) Urine Microscopic RBC 5-10 (0-2) /HPF Urine Microscopic WBC 5-10 (0-5) /HPF Ur Epithelial Cells MANY (FEW) /HPF Urine Bacteria MANY (NEGATIVE) /HPF Urine Mucus MANY (NEGATIVE) /HPF Urine Culture Reflexed YES (NO) Urine Glucose NEGATIVE (NEGATIVE) mg/dL Specimen Received 1630 10/03/17 <DENEEN RUCKER - Last Filed: 10/03/17 18:36> <BRIANNE NO - Last Filed: 10/03/17 20:47> - Progress Progress Note: 10/03/17 18:[address] No at 19:00 (DENEEN RUCKER) 10/03/17 19:[address] NO AT 1923: PERRL, EOMI, TM'S NOT INJECTED, PHARYNX PINK, LUNGS CLEAR, NO CARDIAC RUB, ABDOMINAL B.S. NORMAL, ABDOMEN SOFT WITH MINIMAL TENDERNESS BELOW UMBILICUS, NO ANKLE EDEMA, ALERT & COOPERATIVE. (BRIANNE NO) <DENEEN RUCKER - Last Filed: 10/03/17 18:36> - Departure Time of Disposition: 20:47 Departure Disposition: Home Critical Care Time: No <BRIANNE NO - Last Filed: 12/03/17 20:47> - Departure Clinical Impression: , UTI Condition: Stable Referrals: YESICA MARADIAGA MD [Primary Care Provider] - Instructions: Urinary Tract Infection (UTI) Additional Instructions: FOLLOW UP WITH PRIVATE DOCTOR TOMORROW. STRICT BED REST UNTIL DOCTOR IS SEEN. Prescriptions: Promethazine HCl 25 mg [Phenergan 25 mg] 25 mg PO Q4H PRN PRN #14 tablet PRN Reason: Nausea/Vomiting Nitrofurantoin Macro 100 mg [Macrobid 100MG Capsule] 100 mg PO BID #20
[2017-10-03 16:37] LABS: Appearance HAZY (CLEAR); Bilirubin NEGATIVE (NEGATIVE); Blood NEGATIVE Ery/ul (0-5); Glucose NEGATIVE (NEGATIVE); Ketones NEGATIVE (NEGATIVE); Leukocyte Esterase TRACE (NEGATIVE); Nitrite NEGATIVE (NEGATIVE); Protein,Urine Dip NEGATIVE (Negative); Urobilinogen NORMAL mg/dL (0-1)
[2017-10-03 16:52] LABS: BASOPHIL % 0.2 % (0.0-0.4); Basophil (Absolute #) 0.01 (0-0.4); Eosinophil % 1.9 % (0.00-5.0); Granulocyte Absolute (ANC) 2.55 (1.4-6.9); Granulocytes % 49.7 % (36.0-66.0); Hematocrit 35.9 % (35-47); Hemoglobin 11.8 gm/dl (12.0-16.0); Lymphocyte (Absolute #) 2.15 (1.0-4.6); Lymphocytes % 41.8 % (24.0-44.0); Mean Cell Volume 77.5 fl (78-100); Mean Corpuscular Hgb Concent. 32.9 g/dl (32-36); Monocyte (Absolute #) 0.33 (0.0-1.3); Monocytes % 6.4 % (0.0-12.0); Platelet Count 221 K/mm3 (150-450); Red Blood Count 4.63 M/mm3 (4.1-5.4); Red Cell Distribution Width 14.1 % (11.5-14.0); White Blood Count 5.1 K/mm3 (4.0-10.5)
[2017-10-03 16:54] LABS: Mean Corpuscular Hemoglobin 25.4 pg (26-32)
[2017-10-03 17:04] LABS: Bacteria MANY /HPF (NEGATIVE); Epithelial Cells MANY /HPF (FEW); Mucus MANY /HPF (NEGATIVE)
[2017-10-03 17:13] LABS: ALBUMIN 3.3 g/dL (3.4-5.0); ALKALINE PHOSPHATASE 66 U/L (46-116); ANION GAP 16.5 MEQ/L (5-15); BLOOD UREA NITROGEN 8 mg/dL (9-20); CHLORIDE 105 mEq/L (98-107); Calcium 8.3 mg/dL (8.5-10.1); Carbon Dioxide 21.2 mEq/L (21-32); Creatinine 1 0.69 mg/dl (0.55-1.30); EST GLOMERULAR FILTRATION RATE > 60 ML/MIN; Glucose 79 MG/DL (70-110); LIPASE 106 U/L (73-393); Potassium 3.4 mEq/L (3.5-5.1); SGOT/AST 21 U/L (15-37); SGPT/ALT 33 U/L (12-78); SODIUM 139 mEq/L (136-145); Total Protein 6.5 gm/dL (6.4-8.2)
[2017-10-03] MEDS ORDERED: Zofran 4 MG/2 ML VIAL IV ONE (17:54)
[2017-10-03] MEDS ORDERED: Zofran 4 MG/2 ML VIAL ONE (17:55)
[2017-10-03 19:16] VITALS: O2SAT 99
[2017-10-03] MEDS ORDERED: ROCEPHIN 1 Gm-D5w 50 ml Bag** 1 G/50 ML IVPB IV STA (19:21)
[2017-10-03] MEDS ORDERED: Klor Con 10 MEQ PO ONE ×2 (19:22→19:25)
[2017-10-03] MEDS ORDERED: ROCEPHIN 1 Gm-D5w 50 ml Bag** 1 G/50 ML IVPB IV ONE (19:25)
[2017-10-03] MEDS ORDERED: Phenergan 25 MG INJ IV ONE (19:30)
[2017-10-03] MEDS ORDERED: Phenergan 25 MG INJ ONE (19:31)
[2017-10-03 21:02] VITALS: BP 130/68; PULSE 84
--- NOTE | 2017-10-04 08:40 | XRAY ---
Indication: Positive test. Two-dimensional transvaginal early OB ultrasound performed. Comparison: None Uterus is anteverted measuring 8.1 x 4.5 x 5.0 cm. No focal solid/cystic mass. Endometrial stripe is thickened measuring 1.8 cm. No endometrial cavity mass or fluid collection. Right ovary measures 3.1 x 2.3 x 2.8 cm and the left measures 2.2 x 1.2 x 2.1 cm. Normal color perfusion bilaterally. Right ovary demonstrates a 1.8 cm cyst with minimal echogenic debris. No free fluid. Impression: 1. Negative for intrauterine or ectopic . Correlate with serial beta hCG and follow-up sonogram. 2. Thickened endometrial stripe. 3. 1.8 cm right ovary cyst with tiny debris, possibly corpus luteal cyst. Comment: Preliminary report was given.
== END 2017-10-03 21:08 | disposition home or self-care (01) ==
LOC: ED 15:57
DX: O23.40 Unspecified infection of urinary tract in pregnancy, unspecified trimester (principal)
CPT/HCPCS: 36000; 36415; 76815; 76817; 80053; 81000; 83690; 84484; 84702; 84703; 85025; 87086; 93005; 96365; 96374; 96375; 99284; J0696; J2405; J2550; A9270-GY

== ENCOUNTER 2017-10-29 17:51 | Observation (INO) | payer MEDICAID ==
[2017-10-29] MEDS ORDERED: Phenergan 25 MG INJ IV ONE (18:11)
[2017-10-29] MEDS ORDERED: Sodium Chloride 0.9% 1000 ML 1,000 ML IV STA (18:11)
--- NOTE | 2017-10-29 18:11 | ERPHSYRPT ---
- History of Present Illness Historian: patient, family Exam Limitations: no limitations Patient Subjective Stated Complaint: diarrhea and vomiting x 2 days, abd pain began today, no known fevers, 8 weeks Triage Nursing Assessment: dairrhea and vomiting 2 days, abd pain, no known fevers Timing/Duration: hour(s) (4), gradual onset, worse Activities at Onset: none Quality: sharpness Abdominal Pain Onset Location: LLQ Pain Radiation: no radiation Severity of Pain-Max: moderate Severity of Pain-Current: moderate Modifying Factors: Improves With: nothing Associated Symptoms: diarrhea, nausea, vomiting Previous symptoms: no prior history Hx Tetanus, Diphtheria Vaccination/Date Given: Yes Hx Influenza Vaccination/Date Given: No Hx Pneumococcal Vaccination/Date Given: No Immunizations Up to Date: Yes <BRIANNE ORDOÑEZ - Last Filed: 10/29/17 19:00> <YESICA MARADIAGA - Last Filed: 10/29/17 19:14> - History of Present Illness Time Seen by Provider: 10/29/17 18:07 Physician History: The patient is a 27-year-old obese female spontaneous 1 at 8 weeks complaining of vomiting and diarrhea for 2 days with left-sided abdominal pain beginning 4 hours ago. She has not seen an OB doctor yet so she does not have an ultrasound to determine if she has an intrauterine . She had a miscarriage 12 weeks ago. She denies fever or chills. She denies cough. Her past medical history is significant for spontaneous and migraine headaches. (BRIANNE ORDOÑEZ) Allergies/Adverse Reactions: latex Allergy (Severe, Verified 03/24/17 19:17) STOPPED BREATHING ketorolac [From Toradol] Allergy (Verified 10/03/17 16:03) levothyroxine sodium [From Synthroid] Allergy (Verified 03/24/17 19:17) methylphenidate [From Ritalin] Allergy (Verified 03/24/17 19:17) aspirin Adverse Reaction (Mild, Verified 03/24/17 19:17) Vomiting flu Allergy (Uncoded 06/10/17 20:17) medidate Adverse Reaction (Mild, Uncoded 03/24/17 19:17) VOMTIING Home Medications: Thyroid,Pork [[place] Thyroid] 60 mg PO DAILY 11/18/16 [History] Albuterol 2.5 mg/3 ml Neb [Proventil 2.5 mg/3 ml Neb] 1 each IH Q4H PRN PRN 02/15/17 [History] Albuterol 8 gm Mdi Hfa [Ventolin Hfa MDI] 8 gm IH Q4H PRN PRN 02/15/17 [ History] Fluticasone/Vilanterol [Breo Ellipta 200-25 Mcg INH] 1 puff IH UD 10/03/17 [ History] - Review of Systems Constitutional: No Fever, No Chills Eyes: No Symptoms Ears, Nose, & Throat: No Symptoms Respiratory: No Cough, No Dyspnea Cardiac: No Chest Pain, No Edema, No Syncope Abdominal/Gastrointestinal: Abdominal Pain, Nausea, Vomiting, Diarrhea Genitourinary Symptoms: No Dysuria Musculoskeletal: No Back Pain, No Neck Pain Skin: No Rash Neurological: No Dizziness, No Focal Weakness, No Sensory Changes Psychological: No Symptoms Endocrine: No Symptoms Hematologic/Lymphatic: No Symptoms Immunological/Allergic: No Symptoms All Other Systems: Reviewed and Negative <BRIANNE ORDOÑEZ - Last Filed: 10/29/17 19:00> - Past Medical History Pertinent Past Medical History: Yes Neurological History: Migraines ENT History: No Pertinent History Cardiac History: Arrhythmia, Other Respiratory History: Asthma Endocrine Medical History: Hypothyroidism Musculoskeletal History: No Pertinent History GI Medical History: No Pertinent History, Crohns Disease History: No Pertinent History Psycho-Social History: Attention Deficit Disorder Female Reproductive Disorders: No Pertinent History Other Medical History: Bradycardia, hypotension (usual 90s/60s) - Past Surgical History Past Surgical History: Yes Neuro Surgical History: No Pertinent History Cardiac: No Pertinent History Respiratory: No Pertinent History Gastrointestinal: Cholecystectomy Genitourinary: No Pertinent History Female Surgical History: Section Other Surgical History: egd, colonoscopy lap jeramie 07/01/2017 - Social History Smoking Status: Never smoker Exposure to second hand smoke: No Drug Use: none Patient Lives Alone: No Significant Family History: cancer (colon/breast), diabetes, other (Gall bladder disease) - Female History Hx Now: Yes <BRIANNE ORDOÑEZ - Last Filed: 10/29/17 19:00> - Physical Exam General Appearance: mild distress Eye Exam: PERRL/EOMI, eyes nml inspection Ears, Nose, Throat Exam: normal ENT inspection, pharynx normal, moist mucous membranes Neck Exam: normal inspection, non-tender, supple, full range of motion Respiratory Exam: normal breath sounds, lungs clear, No respiratory distress Cardiovascular Exam: regular rate/rhythm, normal heart sounds Gastrointestinal/Abdomen Exam: tenderness (LLQ), No mass, No guarding Pelvic Exam: not done Rectal Exam: not done Back Exam: normal inspection, normal range of motion, No CVA tenderness, No vertebral tenderness Extremity Exam: normal inspection, normal range of motion, pelvis stable Neurologic Exam: alert, oriented x 3, cooperative, normal mood/affect, nml cerebellar function, sensation nml, No motor deficits Skin Exam: normal color, warm, dry SpO2 Interpretation: normal SpO2: 100 Oxygen Delivery: Room Air <BRIANNE ORDOÑEZ - Last Filed: 10/29/17 19:00> - Nursing Vital Signs Nursing Vital Signs: Initial Vital Signs Temperature 97.5 F 10/29/17 17:59 Pulse Rate 78 10/29/17 17:59 Respiratory Rate 20 10/29/17 17:59 Blood Pressure 125/78 10/29/17 17:59 O2 Sat by Pulse Oximetry 100 10/29/17 17:59 Pain Scale Pain Intensity 6 - Course Nursing assessment & vital signs reviewed: Yes <HIREN,YESICA - Last Filed: 10/29/17 19:14> Ordered Tests: Active Orders 24 hr Category Date Time Status IV Insertion STAT Care 10/29/17 18:11 Active OB <14 WKS 1ST GESTATION [US] Stat Exams 10/29/17 18:12 Ordered BMP Stat Lab 10/29/17 19:00 Received CBC W DIFF Stat Lab 10/29/17 18:49 Received HCG, Quantitative (Inhouse) Stat Lab 10/29/17 19:00 Received UA W/RFX UR CULTURE Stat Lab 10/29/17 18:12 Ordered Medication Summary Discontinued Medications Generic Name Dose Route Start Last Admin Trade Name Freq PRN Reason Stop Dose Admin Sodium Chloride 1,000 mls @ 999 mls/hr 10/29/17 18:11 10/29/17 18:50 Sodium Chloride 0.9% 1000 Ml IV 10/29/17 19:11 999 mls/hr .Q1H1M STA Administration Sodium Chloride Confirm 10/29/17 18:34 Sodium Chloride 0.9% 1000 Ml Administered 10/29/17 18:35 Dose 1,000 mls @ ud .ROUTE .STK-MED ONE Promethazine HCl 12.5 mg 10/29/17 18:11 10/29/17 18:50 Phenergan 25 Mg Inj IV 10/29/17 18:12 12.5 mg STAT ONE Administration Promethazine HCl Confirm 10/29/17 18:34 Phenergan 25 Mg Inj Administered 10/29/17 18:35 Dose 25 mg .ROUTE .STK-MED ONE <BRIANNE ORDOÑEZ - Last Filed: 10/29/17 19:00> - Progress Progress: unchanged Will see patient in: hospital (observation) Counseled pt/family regarding: lab results, diagnosis, need for follow-up <YESICA MARADIAGA - Last Filed: 10/29/17 19:14> - Progress Progress Note: 10/29/17 19:00 Pt care discussed and care transferred to Dr Maradiaga at 19:00. (BRIANNE ORDOÑEZ) <BRIANNE ORDOÑEZ - Last Filed: 10/29/17 19:00> - Departure Time of Disposition: 19:13 Departure Disposition: Observation Critical Care Time: Yes Critical Care Time(excluding separately billable procedures): 30-74 minutes <YESICA MARADIAGA - Last Filed: 10/29/17 19:14> - Departure Clinical Impression: Dehydration, related conditions, unspecified, first trimester Condition: Fair Referrals: YESICA MARADIAGA MD [Primary Care Provider] -
[2017-10-29] MEDS ORDERED: Phenergan 25 MG INJ ONE (18:34)
[2017-10-29] MEDS ORDERED: Sodium Chloride 0.9% 1000 ML 1,000 ML ONE (18:34)
[2017-10-29 19:13] LABS: BASOPHIL % 0.1 % (0.0-0.4); Basophil (Absolute #) 0.01 (0-0.4); Eosinophil % 1.7 % (0.00-5.0); Eosinophil (Absolute #) 0.12 (0-0.5); Granulocyte Absolute (ANC) 4.38 (1.4-6.9); Granulocytes % 63.7 % (36.0-66.0); Hematocrit 40.8 % (35-47); Hemoglobin 13.4 gm/dl (12.0-16.0); Lymphocyte (Absolute #) 1.98 (1.0-4.6); Lymphocytes % 28.7 % (24.0-44.0); Mean Cell Volume 77.4 fl (78-100); Mean Corpuscular Hemoglobin 25.4 pg (26-32); Mean Corpuscular Hgb Concent. 32.8 g/dl (32-36); Mean Platelet Volume 10.1 fl (6-9.5); Monocytes % 5.8 % (0.0-12.0); Platelet Count 210 K/mm3 (150-450); Red Blood Count 5.27 M/mm3 (4.1-5.4); Red Cell Distribution Width 13.6 % (11.5-14.0); White Blood Count 6.9 K/mm3 (4.0-10.5)
[2017-10-29] MEDS ORDERED: Phenergan 25 MG INJ IM PRN (19:15)
[2017-10-29 19:57] LABS: Appearance CLEAR (CLEAR); Bilirubin NEGATIVE (NEGATIVE); Blood NEGATIVE Ery/ul (0-5); Glucose NEGATIVE (NEGATIVE); Ketones NEGATIVE (NEGATIVE); Leukocyte Esterase NEGATIVE (NEGATIVE); Nitrite NEGATIVE (NEGATIVE); Protein,Urine Dip NEGATIVE (Negative); Urobilinogen NORMAL mg/dL (0-1)
[2017-10-29 19:58] LABS: ANION GAP 16.2 MEQ/L (5-15); BLOOD UREA NITROGEN 9 mg/dL (9-20); CHLORIDE 105 mEq/L (98-107); Calcium 8.9 mg/dL (8.5-10.1); Creatinine 1 0.67 mg/dl (0.55-1.30); EST GLOMERULAR FILTRATION RATE > 60 ML/MIN; Glucose 82 MG/DL (70-110); Potassium 4.1 mEq/L (3.5-5.1); SODIUM 138 mEq/L (136-145)
[2017-10-29 20:19] LABS: INFLUENZA A NEGATIVE (NEGATIVE); INFLUENZA B NEGATIVE (NEGATIVE); RESPIRATORY SYNCTIAL VIRUS NEGATIVE (Negative)
[2017-10-29 20:36] LABS: HCG, Quantitative (Inhouse) 213020 IU/L (0-6)
[2017-10-29] MEDS ORDERED: ROCEPHIN 1 Gm-D5w 50 ml Bag** 0 G/0 ML IVPB IV ONE (21:24)
[2017-10-29] MEDS: Sodium Chloride 0.9% W/ 20 mEq KCl/LITER 1,000 ML IV SCH (22:48)
[2017-10-30 05:50] LABS: Hematocrit 35.5 % (35-47); Hemoglobin 11.6 gm/dl (12.0-16.0); Mean Corpuscular Hgb Concent. 32.7 g/dl (32-36); Mean Platelet Volume 10.8 fl (6-9.5); Platelet Count 136 K/mm3 (150-450); Red Blood Count 4.55 M/mm3 (4.1-5.4); Red Cell Distribution Width 13.4 % (11.5-14.0); White Blood Count 4.4 K/mm3 (4.0-10.5)
[2017-10-30 06:00] LABS: Mean Corpuscular Hemoglobin 25.4 pg (26-32)
[2017-10-30 06:14] LABS: ANION GAP 13.3 MEQ/L (5-15); BLOOD UREA NITROGEN 7 mg/dL (9-20); CHLORIDE 108 mEq/L (98-107); Carbon Dioxide 21.8 mEq/L (21-32); Creatinine 1 0.69 mg/dl (0.55-1.30); EST GLOMERULAR FILTRATION RATE > 60 ML/MIN; Glucose 85 MG/DL (70-110); Potassium 3.5 mEq/L (3.5-5.1); SODIUM 140 mEq/L (136-145)
--- NOTE | 2017-10-30 06:42 | PCM.HP ---
History of Present Illness - Chief Complaint Chief Complaint: viral syndrome, 1st trimester, dehydration History of Present Illness: is a 27 year old female. - Review of Systems Constitutional: No Fever, No Chills Eyes: No Symptoms Ears, Nose, & Throat: No Symptoms Respiratory: No Cough, No Short Of Breath Cardiac: No Chest Pain, No Edema, No Syncope Abdominal/Gastrointestinal: Nausea, Vomiting, No Abdominal Pain, No Diarrhea Genitourinary Symptoms: No Dysuria Musculoskeletal: No Back Pain, No Neck Pain Skin: No Rash Neurological: No Dizziness, No Focal Weakness, No Sensory Changes Psychological: No Symptoms Endocrine: No Symptoms Hematologic/Lymphatic: No Symptoms Immunological/Allergic: No Symptoms Medications & Allergies Home Medications: Home Medication List Albuterol 2.5 mg/3 ml Neb [Proventil 2.5 mg/3 ml Neb] 1 each IH Q4H PRN PRN 02/15/17 [History Confirmed 10/29/17] Albuterol 8 gm Mdi Hfa [Ventolin Hfa MDI] 8 gm IH Q4H PRN PRN 02/15/17 [ History Confirmed 10/29/17] Fluticasone/Vilanterol [Breo Ellipta 200-25 Mcg INH] 1 puff IH UD 10/03/17 [ History Confirmed 10/29/17] Vits W-Ca,Fe,FA(<1Mg) [] 1 tablet PO DAILY 10/29/17 [History Confirmed 10/29/17] Allergies/Adverse Reactions: Allergies Allergy/AdvReac Type Severity Reaction Status Date / Time latex Allergy Severe STOPPED Verified 03/24/17 19:17 BREATHING ketorolac [From Toradol] Allergy Verified 10/03/17 16:03 levothyroxine sodium Allergy Verified 03/24/17 19:17 [From Synthroid] methylphenidate Allergy Verified 03/24/17 19:17 [From Ritalin] aspirin AdvReac Mild Vomiting Verified 03/24/17 19:17 flu Allergy Uncoded 06/10/17 20:17 medidate AdvReac Mild VOMTIING Uncoded 03/24/17 19:17 - Past Medical History Past Medical History: Yes Neurological History: Migraines ENT History: No Pertinent History Cardiac History: Arrhythmia, Other Respiratory History: Asthma Endocrine Medical History: Hypothyroidism Musculoskelatal History: No Pertinent History GI Medical History: No Pertinent History History: No Pertinent History Pyscho-Social History: Attention Deficit Disorder Reproductive Disorders: No Pertinent History Comment: Bradycardia, hypotension (usual 90s/60s) - Female History Hx Last Menstrual Period: 09/05/2017 Are you now?: Yes - Past Surgical History Past Surgical History: Yes Neuro Surgical History: No Pertinent History Cardiac History: No Pertinent History Respiratory Surgery: No Pertinent History GI Surgical History: Cholecystectomy Genitourinary Surgical Hx: No Pertinent History Musculskeletal Surgical Hx: No Pertinent History Female Surgical History: Section Other Surgical History: egd, colonoscopy lap jeramie 07/01/2017 - Social History Smoking Status: Former smoker Exposure to second hand smoke: No Alcohol: None Drug Use: none Significant Family History: cancer (colon/breast), diabetes, other (Gall bladder disease) - Physical Exam Vital Signs: Vital Signs - 24 hr Temp Pulse Resp BP Pulse Ox 10/30/17 04:45 98.3 F 68 17 108/56 96 10/30/17 04:00 98.3 F 68 17 108/56 96 10/30/17 00:00 98.5 F 80 19 104/53 97 10/29/17 20:34 98.1 F 79 16 124/59 100 10/29/17 19:01 100 10/29/17 17:59 97.5 F 78 20 125/78 100 General Appearance: no apparent distress, alert Neurologic Exam: alert, oriented x 3, cooperative, normal mood/affect, nml cerebellar function, nml station & gait, sensation nml, No motor deficits Eye Exam: PERRL/EOMI, eyes nml inspection Ears, Nose, Throat Exam: normal ENT inspection, TMs normal, pharynx normal, moist mucous membranes Neck Exam: normal inspection, non-tender, supple, full range of motion Respiratory Exam: normal breath sounds, lungs clear, No respiratory distress Cardiovascular Exam: regular rate/rhythm, normal heart sounds, normal peripheral pulses Gastrointestinal/Abdomen Exam: soft, normal bowel sounds, No tenderness, No mass Back Exam: normal inspection, normal range of motion, No CVA tenderness, No vertebral tenderness Extremity Exam: normal inspection, normal range of motion, pelvis stable Skin Exam: normal color, warm, dry, No rash Lymphatic Exam: No adenopathy Results - Labs Lab/Micro Results: Lab Results-Last 24 Hours 10/30/17 10/30/17 10/30/17 Range/Units 05:30 05:30 05:31 WBC 4.4 (4.0-10.5) K/mm3 RBC 4.55 (4.1-5.4) M/mm3 Hgb 11.6 L (12.0-16.0) gm/dl Hct 35.5 (35-47) % MCV 78.0 (78-100) fl MCH 25.4 L (26-32) pg MCHC 32.7 (32-36) g/dl RDW 13.4 (11.5-14.0) % Plt Count 136 L (150-450) K/mm3 MPV 10.8 H (6-9.5) fl Sodium 140 (136-145) mEq/L Potassium 3.5 (3.5-5.1) mEq/L Chloride 108 H (98-107) mEq/L Carbon Dioxide 21.8 (21-32) mEq/L Anion Gap 13.3 (5-15) MEQ/L BUN 7 L (9-20) mg/dL Creatinine 0.69 (0.55-1.30) mg/dl Estimated GFR > 60 ML/MIN Glucose 85 (70-110) MG/DL Lactic Acid 0.7 (0.4-2.0) Calcium 8.0 L (8.5-10.1) mg/dL Assessment/Plan (1) Dehydration Current Visit: Yes Status: Acute Code(s): E86.0 - DEHYDRATION (2) related conditions, unspecified, first trimester Current Visit: Yes Status: Acute Code(s): O26.91 - RELATED CONDITIONS, UNSPECIFIED, FIRST TRIMESTER (3) Abdominal pain Current Visit: No Status: Acute Code(s): R10.9 - UNSPECIFIED ABDOMINAL PAIN (4) Dizziness Current Visit: No Status: Acute Code(s): R42 - DIZZINESS AND GIDDINESS
[2017-10-30 07:14] LABS: ATYPICAL LYMPHS 4 %; BAND 1 % (0.0-2.0); Lymphocytes 36 % (24-44); Monocyte 6 % (0.0-12.0); Neutrophils 53 % (36.0-66.0); Total Cells Counted 100
[2017-10-30 07:15] LABS: Platelet Estimate NORMAL (NORMAL)
[2017-10-30] MEDS ORDERED: Ventolin Hfa MDI IH PRN (07:33)
[2017-10-30] MEDS ORDERED: PROVENTIL 2.5 MG/3 ML NEB IH PRN (07:33)
[2017-10-30] MEDS: Phenergan 25 MG INJ IV PRN ×3 (07:33→19:53)
[2017-10-30] MEDS ORDERED: PROVENTIL COMMON CANISTER IH PRN (07:36)
[2017-10-30] MEDS ORDERED: MEDICATION INTERVENTION MC PRN (07:38)
[2017-10-30] MEDS ORDERED: NON-FORMULARY ITEM (Fluticasone/Vilanterol [Breo Ellipta 200-25 Mcg Inh] 1 PUFF) IH SCH (07:45)
--- NOTE | 2017-10-30 07:56 | XRAY ---
Indication: Left lower quadrant pain. Positive test. History of miscarriage. Two-dimensional transvaginal early OB ultrasound was performed. Comparison: None for this . There is a single intrauterine gestational sac with presence of a single pole. Mean crown-rump length measures 1.62 cm corresponding to 8 weeks 0 days. heart rate 154 BPM. No abnormal subchorionic fluid collection. 2.0 cm right ovary corpus luteal cyst. Left ovary unremarkable. No suspicious adnexal mass or free fluid. Impression: Single viable intrauterine measuring 8 weeks 0 days. Expected date confinement is June 10, 2018. Comment: Preliminary report was given.
[2017-10-30] MEDS: Sodium Chloride 0.9% W/ 20 mEq KCl/LITER 1,000 ML IV SCH ×2 (08:23→19:50)
[2017-10-30] MEDS ORDERED: ROCEPHIN 1 Gm-D5w 50 ml Bag** 1 G/50 ML IVPB IV SCH (10:00)
[2017-10-30] MEDS ORDERED: THERAGRAN MULTIVITAMIN PO SCH (10:00)
[2017-10-30] MEDS ORDERED: PRENATAL VITS W CA FE FA PO SCH (10:00)
[2017-10-31] MEDS: Phenergan 25 MG INJ IV PRN (04:04)
[2017-10-31] MEDS: Sodium Chloride 0.9% W/ 20 mEq KCl/LITER 1,000 ML IV SCH (05:50)
[2017-10-31 07:16] VITALS: BP 123/65; PULSE 68; O2SAT 99
--- NOTE | 2017-10-31 20:14 | PCM.DS ---
Discharge Summary Date of Admission: 10/29/17 20:33 Admitting Physician: YESICA MARADIAGA Primary Care Provider: YESICA MARADIAGA Allergies Allergies latex Allergy (Severe, Verified 03/24/17 19:17) STOPPED BREATHING ketorolac [From Toradol] Allergy (Verified 10/03/17 16:03) levothyroxine sodium [From Synthroid] Allergy (Verified 03/24/17 19:17) methylphenidate [From Ritalin] Allergy (Verified 03/24/17 19:17) aspirin Adverse Reaction (Mild, Verified 03/24/17 19:17) Vomiting flu Allergy (Uncoded 06/10/17 20:17) medidate Adverse Reaction (Mild, Uncoded 03/24/17 19:17) VOMTIING Hospital Summary - Hospital Course Hospital Course: Chief Complaint Diagnosis viral syndrome, 1st trimester, dehydration Allergies Allergy/AdvReac Type Severity Reaction Status Date / Time latex Allergy Severe STOPPED Verified 03/24/17 19:17 BREATHING ketorolac [From Toradol] Allergy Verified 10/03/17 16:03 levothyroxine sodium Allergy Verified 03/24/17 19:17 [From Synthroid] methylphenidate Allergy Verified 03/24/17 19:17 [From Ritalin] aspirin AdvReac Mild Vomiting Verified 03/24/17 19:17 flu Allergy Uncoded 06/10/17 20:17 medidate AdvReac Mild VOMTIING Uncoded 03/24/17 19:17 Vital Signs (Last 24 hours) Temp Pulse Resp BP Pulse Ox 10/31/17 07:15 98 F 68 20 123/65 99 10/31/17 04:00 98.0 F 58 L 15 113/55 98 10/31/17 00:00 98.3 F 73 16 97/55 97 Home Medications Medication Instructions Recorded Confirmed Last Taken Type Vits W-Ca,Fe,FA(<1Mg) 1 tablet PO DAILY 10/29/17 10/29/17 10/28/17 History [] Promethazine HCl 25 mg 25 mg PO Q4HPRN PRN #30 tablet 10/31/17 Unknown Rx [Phenergan 25 mg] Current Medications Discontinued Medications Generic Name Dose Route Start Last Admin Trade Name Freq PRN Reason Stop Dose Admin Albuterol Sulfate 2.5 mg 10/30/17 07:33 Proventil 2.5 Mg/3 Ml Neb IH 11/29/17 07:32 Q4H PRN PRN SHORTNESS OF BREATH/WHEEZING Albuterol Sulfate 2 puff 10/30/17 07:36 Proventil Common Canister IH 11/29/17 07:35 Q4H PRN PRN SHORTNESS OF BREATH/WHEEZING Sodium Chloride 1,000 mls @ 999 mls/hr 10/29/17 18:11 10/29/17 18:50 Sodium Chloride 0.9% 1000 Ml IV 10/29/17 19:11 999 mls/hr .Q1H1M STA Administration Sodium Chloride Confirm 10/29/17 18:34 Sodium Chloride 0.9% 1000 Ml Administered 10/29/17 18:35 Dose 1,000 mls @ ud .ROUTE .STK-MED ONE Ceftriaxone Sodium/Dextrose 1 g in 50 mls @ 100 mls/hr 10/30/17 10:00 08:23 Rocephin 1 Gm-D5w 50 Ml Bag IV 11/29/17 09:59 100 mls/hr Q24H10 JAH Administration Potassium Chloride/Sodium Chloride 1,000 mls @ 100 mls/hr 10/29/17 19:15 05:50 Sodium Chloride 0.9% W/ 20 Meq Kcl/Liter IV 11/28/17 19:14 100 mls/hr .Q10H JAH Administration Ceftriaxone Sodium/Dextrose Confirm 10/29/17 21:24 Rocephin 1 Gm-D5w 50 Ml Bag Administered 10/29/17 21:25 Dose 1 g in 50 mls @ ud IV .STK-MED ONE Multivitamins 1 tab 10/30/17 10:00 10/30/17 08:23 Theragran Multivitamin PO 11/29/17 09:59 1 tab DAILY JAH Administration Promethazine HCl 12.5 mg 10/29/17 18:11 10/29/17 18:50 Phenergan 25 Mg Inj IV 10/29/17 18:12 12.5 mg STAT ONE Administration Promethazine HCl Confirm 10/29/17 18:34 Phenergan 25 Mg Inj Administered 10/29/17 18:35 Dose 25 mg .ROUTE .STK-MED ONE Promethazine HCl 12.5 mg 10/29/17 19:15 10/30/17 00:47 Phenergan 25 Mg Inj IM 11/28/17 19:14 12.5 mg Q6H PRN PRN Administration NAUSEA/VOMITING Promethazine HCl 12.5 mg 10/30/17 07:29 10/31/17 04:04 Phenergan 25 Mg Inj IV 11/29/17 07:28 12.5 mg Q6H PRN PRN Administration NAUSEA/VOMITING Intake & Output (Last 24 hours) 10/29/17 10/30/17 10/31/17 11/01/17 11:59 11:59 11:59 11:59 Intake Total 1003 4513 Output Total 2100 Balance 1003 2413 Weight 120.259 kg 120.111 kg Orders (Last 24 hours) Category Date Time Status Discharge Routine Discharge 10/31/17 Ordered Discharge/Telephone Order Routine Discharge 10/31/17 Active Patient Care Notes (Last 24 hours) 10/31/17 08:47 Nursing Note by Ira Cabrera pt released in care of mother. Initialized on 10/31/17 08:47 - END OF NOTE 10/31/17 07:47 Nursing Note by Ira Cabrera Dr. made rounds early this morning before day shift, see discharge order. good understanding noted of discharge instructions, follow up, and script x 1. hard script printed due to [facility] being closed today and she can get it filled at another pharmacy, pt in agreement with this plan. IV dcd, pt waiting for ride home. Initialized on 10/31/17 07:47 - END OF NOTE - Vitals & Intake/Output Vital Signs: Vital Signs Temperature 98 F 10/31/17 07:15 Pulse Rate 68 10/31/17 07:15 Respiratory Rate 20 10/31/17 07:15 Blood Pressure 123/65 10/31/17 07:15 O2 Sat by Pulse Oximetry 99 10/31/17 07:15 Intake & Output: Intake & Output 10/29/17 10/30/17 10/31/17 11/01/17 11:59 11:59 11:59 11:59 Intake Total 1003 4513 Output Total 2100 Balance 1003 2413 Weight 120.259 kg 120.111 kg - Lab Result Diagrams: 10/30/17 05:30 10/30/17 05:30 - Procedures and Test Procedures and Tests throughout Hospitalization: Therapy Orders & Screens 10/29/17 20:50 RT Screen per Nursing Assess ONCE Comment: Protocol Order Physician Instructions: Greater than 3 points order RT Admission Screen Reason For Exam: Triggered on Admission Diagnosis: viral syndrome, 1st trimester, dehydration Diagnosis: viral syndrome, 1st trimester, dehydration Pneumonia: No Home O2: No Asthma: Yes CHF: No Home CPAP/BIPAP: No Home Nebs/MDI: Yes Total Points: 9 10/30/17 10:39 Respiratory MDI UD Comment: ALBUTEROL Q4PRN Diagnosis: viral syndrome, 1st trimester, dehydration Respiratory Nebulizer UD Comment: ALBUTEROL Q4PRN Diagnosis: viral syndrome, 1st trimester, dehydration Discharge Exam General Appearance: no apparent distress, alert Neurologic Exam: alert, oriented x 3, cooperative, normal mood/affect, nml cerebellar function, sensation nml, No motor deficits Skin Exam: normal color, warm, dry Eye Exam: PERRL, EOMI, eyes nml inspection Ears, Nose, Throat Exam: normal ENT inspection, pharynx normal, moist mucous membranes Neck Exam: normal inspection, non-tender, supple, full range of motion Respiratory Exam: normal breath sounds, lungs clear, No respiratory distress Cardiovascular Exam: regular rate/rhythm, normal heart sounds Gastrointestinal/Abdomen Exam: soft, No tenderness, No mass Extremity Exam: normal inspection, normal range of motion Back Exam: normal inspection, normal range of motion, No CVA tenderness, No vertebral tenderness Pelvic Exam: deferred Rectal Exam: deferred Final Diagnosis/Problem List - Final Discharge Diagnosis/Problem (1) Dehydration Status: Resolved (2) related conditions, unspecified, first trimester Status: Resolved (3) Abdominal pain Status: Resolved (4) Dizziness Status: Resolved - Discharge Discharge Date: 10/31/17 Disposition: Home, Self-Care Condition: Stable Prescriptions: New Promethazine HCl 25 mg [Phenergan 25 mg] 25 mg PO Q4HPRN PRN #30 tablet PRN Reason: Nausea Continue Albuterol 8 gm Mdi Hfa [Ventolin Hfa MDI] 8 gm IH Q4H PRN PRN PRN Reason: Shortness Of Breath/Wheezing Albuterol 2.5 mg/3 ml Neb [Proventil 2.5 mg/3 ml Neb] 1 each IH Q4H PRN PRN PRN Reason: Shortness Of Breath/Wheezing Fluticasone/Vilanterol [Breo Ellipta 200-25 Mcg INH] 1 puff IH UD Vits W-Ca,Fe,FA(<1Mg) [] 1 tablet PO DAILY Instructions: Diet, -- Discomforts and Remedies, Nausea -- Adult Follow up with: YESICA MARADIAGA MD [Primary Care Provider] - 1 Week Forms: Patient Portal Information
== END 2017-10-31 08:30 | disposition home or self-care (01) ==
LOC: ED 17:51 → MED SURG 20:33
PROVIDERS: ADMIT General Practice; ATTEND General Practice
DX: O26.891 Other specified pregnancy related conditions, first trimester (principal); Z3A.08 8 weeks gestation of pregnancy; E86.0 Dehydration; R42 Dizziness and giddiness
CPT/HCPCS: 36000; 36415; 76817; 80048; 81002; 83605; 84702; 85025; 87631; 94760; 96360; 96374; 99285; G0378; J0696; J2550; A9270-GY

== ENCOUNTER 2018-01-03 18:22 | Emergency (ER) | payer MEDICAID ==
[2018-01-03] MEDS ORDERED: Zofran 4 MG/2 ML VIAL IV ONE (19:25)
[2018-01-03] MEDS ORDERED: Lactated Ringers 1,000 ML IV SCH (19:30)
[2018-01-03] MEDS ORDERED: SUBLIMAZE 100 MCG/2 ML IV ONE (19:58)
[2018-01-03] MEDS ORDERED: Zofran 4 MG/2 ML VIAL ONE (20:10)
[2018-01-03] MEDS ORDERED: SUBLIMAZE 100 MCG/2 ML ONE (20:11)
[2018-01-03] MEDS ORDERED: Lactated Ringers 1,000 ML IV ONE (20:11)
[2018-01-03 20:54] LABS: BASOPHIL % 0.1 % (0.0-0.4); Basophil (Absolute #) 0.01 (0-0.4); Eosinophil % 1.3 % (0.00-5.0); Eosinophil (Absolute #) 0.09 (0-0.5); Granulocyte Absolute (ANC) 4.73 (1.4-6.9); Granulocytes % 67.2 % (36.0-66.0); Hematocrit 37.3 % (35-47); Hemoglobin 12.5 gm/dl (12.0-16.0); Lymphocyte (Absolute #) 1.81 (1.0-4.6); Lymphocytes % 25.7 % (24.0-44.0); Mean Cell Volume 75.7 fl (78-100); Mean Corpuscular Hemoglobin 25.4 pg (26-32); Mean Corpuscular Hgb Concent. 33.5 g/dl (32-36); Mean Platelet Volume 10.4 fl (6-9.5); Monocytes % 5.7 % (0.0-12.0); Platelet Count 185 K/mm3 (150-450); Red Blood Count 4.93 M/mm3 (4.1-5.4); Red Cell Distribution Width 13.7 % (11.5-14.0)
[2018-01-03 21:16] LABS: ANION GAP 12.8 MEQ/L; BLOOD UREA NITROGEN 5 mg/dl (7-17); CHLORIDE 106 mEq/L (98-107); Carbon Dioxide 23 mmol/L (22-30); Creatinine 1 0.52 mg/dl (0.52-1.04); Glucose 73 mg/dL (74-106); Potassium 3.7 mmol/L (3.5-5.1); SODIUM 137 mmol/L (137-145)
--- NOTE | 2018-01-03 22:54 | ERPHSYRPT ---
- History of Present Illness Time Seen by Provider: 01/03/18 19:00 Source: patient Exam Limitations: clinical condition Patient Subjective Stated Complaint: migraine Triage Nursing Assessment: pt to er c/o migraine, has hx of migraines, started last night, no relief with tylenol, OB [facility] but pt reports pain is too bad for her to drive that far Physician History: PATIENT WITH A HISTORY OF MIGRAINE HEADACHES, -1, PARA-2, 17 WEEKS GESTATION, COMPLAINS OF RIGHT SIDED HEADACHE X 3 DAYS ASSOCIATED WITH NAUSEA AND EMESIS. HOSPITALIZED AT [facility] ON 11/15/2017 FOR SEVERE MIGRAINE SINGLETON, EVALUATED WITH A MRI AND MRV NONCONTRAST OF BRAIN WHICH WAS NORMAL. Timing/Duration: day(s) Quality: throbbing Head Pain Location: temporal (RIGHT TEMPORAL) Severity of Pain-Max: severe Severity of Pain-Current: severe Recent Head Trauma: frequent headaches Modifying Factors: Improves With: exposure to light Associated Symptoms: other (NAUSEA, EMESIS) Previous symptoms: same symptoms as today Allergies/Adverse Reactions: latex Allergy (Severe, Verified 01/03/18 18:52) STOPPED BREATHING ketorolac [From Toradol] Allergy (Verified 01/03/18 18:52) levothyroxine sodium [From Synthroid] Allergy (Verified 01/03/18 18:52) methylphenidate [From Ritalin] Allergy (Verified 01/03/18 18:52) aspirin Adverse Reaction (Mild, Verified 01/03/18 18:52) Vomiting flu Allergy (Uncoded 01/03/18 18:52) medidate Adverse Reaction (Mild, Uncoded 01/03/18 18:52) VOMTIING Home Medications: Vits W-Ca,Fe,FA(<1Mg) [] 1 tablet PO DAILY 10/29/17 [History] Hx Tetanus, Diphtheria Vaccination/Date Given: No Hx Influenza Vaccination/Date Given: No Hx Pneumococcal Vaccination/Date Given: No Immunizations Up to Date: No - Review of Systems Constitutional: No Fever, No Chills Eyes: No Symptoms Ears, Nose, & Throat: No Symptoms Respiratory: No Symptoms, No Cough, No Dyspnea Cardiac: No Symptoms, No Chest Pain, No Edema, No Syncope Abdominal/Gastrointestinal: Nausea, Vomiting, No Abdominal Pain, No Diarrhea Genitourinary Symptoms: No Dysuria Musculoskeletal: No Back Pain, No Neck Pain Skin: No Rash Neurological: Headache, No Dizziness, No Focal Weakness, No Sensory Changes Psychological: No Symptoms Endocrine: No Symptoms All Other Systems: Reviewed and Negative - Past Medical History Pertinent Past Medical History: Yes Neurological History: Migraines ENT History: No Pertinent History Cardiac History: Arrhythmia, Other Respiratory History: Asthma Endocrine Medical History: Hypothyroidism Musculoskeletal History: No Pertinent History GI Medical History: No Pertinent History History: No Pertinent History Psycho-Social History: Attention Deficit Disorder Female Reproductive Disorders: No Pertinent History Other Medical History: Bradycardia, hypotension (usual 90s/60s) - Past Surgical History Past Surgical History: Yes Neuro Surgical History: No Pertinent History Cardiac: No Pertinent History Respiratory: No Pertinent History Gastrointestinal: Cholecystectomy Genitourinary: No Pertinent History Musculoskeletal: No Pertinent History Female Surgical History: Section Other Surgical History: c section - Social History Smoking Status: Former smoker Exposure to second hand smoke: No Drug Use: none Patient Lives Alone: No Significant Family History: cancer (colon/breast), diabetes, other (Gall bladder disease) - Female History Hx Last Menstrual Period: september 05, 2018 Hx Now: Yes Gestational Age: 17 weeks - Nursing Vital Signs Nursing Vital Signs: Initial Vital Signs Temperature 98.9 F 01/03/18 18:45 Pulse Rate 84 01/03/18 18:45 Respiratory Rate 22 01/03/18 18:45 Blood Pressure 165/97 01/03/18 18:45 O2 Sat by Pulse Oximetry 98 01/03/18 18:45 Pain Scale Pain Intensity 8 - Physical Exam General Appearance: no apparent distress Eye Exam: PERRL/EOMI Ears, Nose, Throat Exam: normal ENT inspection, moist mucous membranes Neck Exam: normal inspection, supple, full range of motion, No meningismus Respiratory Exam: normal breath sounds, lungs clear Cardiovascular Exam: regular rate/rhythm, normal heart sounds Gastrointestinal/Abdominal Exam: soft, normal bowel sounds, other (GRAVID), No tenderness, No distention Back Exam: normal inspection, normal range of motion Extremity Exam: normal inspection Mental Status Exam: alert, oriented x 3, cooperative manager of internal Exam: normal speech, PERRL, No facial droop Coordination/Gait Exam: normal cerebellar function Motor/Sensory Exam: no motor deficit, no sensory deficit DTR Exam: bicep (R): 2+, bicep (L): 2+, tricep (R): 2+, tricep (L): 2+, knee (R) : 2+, knee (L): 2+, ankle (R): 2+, ankle (L): 2+ Skin Exam: normal color, warm, dry, No rash SpO2 Interpretation: normal SpO2: 98 Oxygen Delivery: Room Air Ordered Tests: Active Orders 24 hr Category Date Time Status Heart Tones-ED STAT Care 01/03/18 22:55 Active IV Insertion STAT Care 01/03/18 19:25 Active BMP Stat Lab 01/03/18 20:51 Completed CBC W DIFF Stat Lab 01/03/18 20:51 Completed UA W/RFX UR CULTURE Stat Lab 01/03/18 19:26 Ordered Medication Summary Generic Name Dose Route Start Last Admin Trade Name Freq PRN Reason Stop Dose Admin Lactated Ringer's 1,000 mls @ 100 mls/hr 01/03/18 19:30 01/03/18 21:27 Lactated Ringers IV 02/02/18 19:29 100 mls/hr .Q10H JAH Administration Discontinued Medications Generic Name Dose Route Start Last Admin Trade Name Freq PRN Reason Stop Dose Admin Fentanyl Citrate 100 mcg 01/03/18 19:58 01/03/18 21:27 Sublimaze 100 Mcg/2 Ml IV 01/03/18 19:59 100 mcg STAT ONE Administration Fentanyl Citrate Confirm 01/03/18 20:11 Sublimaze 100 Mcg/2 Ml Administered 01/03/18 20:12 Dose 100 mcg .ROUTE .STK-MED ONE Ondansetron HCl 4 mg 01/03/18 19:25 01/03/18 21:27 Zofran 4 Mg/2 Ml Vial IV 01/03/18 19:26 4 mg STAT ONE Administration Ondansetron HCl Confirm 01/03/18 20:10 Zofran 4 Mg/2 Ml Vial Administered 01/03/18 20:11 Dose 4 mg .ROUTE .STK-MED ONE Lab/Rad Data: Laboratory Result Diagrams 01/03/18 20:51 01/03/18 20:51 Laboratory Results 01/03/18 01/03/18 Range/Units 20:51 20:51 WBC 7.0 (4.0-10.5) K/mm3 RBC 4.93 (4.1-5.4) M/mm3 Hgb 12.5 (12.0-16.0) gm/dl Hct 37.3 (35-47) % MCV 75.7 L (78-100) fl MCH 25.4 L (26-32) pg MCHC 33.5 (32-36) g/dl RDW 13.7 (11.5-14.0) % Plt Count 185 (150-450) K/mm3 MPV 10.4 H (6-9.5) fl Gran % 67.2 H (36.0-66.0) % Lymphocytes % 25.7 (24.0-44.0) % Monocytes % 5.7 (0.0-12.0) % Eosinophils % 1.3 (0.00-5.0) % Basophils % 0.1 (0.0-0.4) % Basophils # 0.01 (0-0.4) Sodium 137 (137-145) mmol/L Potassium 3.7 (3.5-5.1) mmol/L Chloride 106 (98-107) mEq/L Carbon Dioxide 23 (22-30) mmol/L Anion Gap 12.8 MEQ/L BUN 5 L (7-17) mg/dl Creatinine 0.52 (0.52-1.04) mg/dl Estimated GFR > 60 ML/MIN Glucose 73 L (74-106) mg/dL Calcium 9.0 (8.4-10.2) mg/dl - Progress Progress: improved Progress Note: 01/03/18 22:54 ADMINISTERED IV LR AT 100ML/HR, ZOFRAN 4MG. FENTANYL 0.1MG IV IV 01/03/18 22:59 01/03/18 23:09 HEART TONES 140 Discussed with : [place] (DISCUSSED CASE WITH DR MARADIAGA AT 2320 FOR OFFICE FOLLOWUP TOMORROW) Counseled pt/family regarding: lab results, diagnosis, need for follow-up - Departure Time of Disposition: 23:45 Departure Disposition: Home Clinical Impression: ACUTE MIGRAINE CEPHALGIA, Condition: Stable Critical Care Time: No Referrals: YESICA MARADIAGA MD [Primary Care Provider] - Additional Instructions: ZOFRAN 4MG EVERY 4 HOUR NEEDED FOR NAUSEA. TYLENOL EVERY 4 HOURS NEEDED FOR HEADACHE. CONSULT YOUR PRIMARY CARE PROVIDER FOR FOLLOWUP TOMORROW FOR REFERRAL TO NEUROLOGIST. Prescriptions: Ondansetron ODT 4 MG [Zofran Odt 4 mg] 4 mg PO Q4H PRN PRN #10 tab.rapdis PRN Reason: Nausea
[2018-01-03 23:53] VITALS: BP 146/92; PULSE 93; O2SAT 97
== END 2018-01-03 23:59 | disposition home or self-care (01) ==
LOC: ED 18:22
DX: O26.892 Other specified pregnancy related conditions, second trimester (principal); Z3A.17 17 weeks gestation of pregnancy; G43.909 Migraine, unspecified, not intractable, without status migrainosus
CPT/HCPCS: 36000; 36415; 80048; 85025; 96360; 96361; 96374; 96375; 99283; 99284; J2405; J3010

== ENCOUNTER 2018-03-16 21:26 | Observation (INO) | payer MEDICAID ==
[2018-03-16] MEDS ORDERED: Lactated Ringers 1,000 ML IV SCH (23:00)
[2018-03-17] MEDS: BRETHINE 1 MG/ML SQ ONE ×2 (00:26→02:24)
[2018-03-17 01:17] LABS: Appearance CLEAR (CLEAR); Glucose NEGATIVE (NEGATIVE); Leukocyte Esterase NEGATIVE (NEGATIVE); Nitrite NEGATIVE (NEGATIVE); Protein,Urine Dip NEGATIVE (Negative); Specific Gravity 1.025 (1.005-1.025)
[2018-03-17 01:18] LABS: Bilirubin NEGATIVE (NEGATIVE); Blood NEGATIVE Ery/ul (0-5); Ketones LARGE (NEGATIVE); Urobilinogen NORMAL mg/dL (0-1)
[2018-03-17 01:31] LABS: Amphetamine,Urine NEGATIVE (NEGATIVE); Barbiturate,Urine NEGATIVE (NEGATIVE); Benzodiazepine,Urine NEGATIVE (NEGATIVE); Cocaine,Urine NEGATIVE (NEGATIVE); Methadone,Urine NEGATIVE (NEGATIVE); Opiate,Urine NEGATIVE (NEGATIVE); PCP,Urine NEGATIVE (NEGATIVE); THC,Urine NEGATIVE (NEGATIVE)
[2018-03-17] MEDS ORDERED: BRETHINE 1 MG/ML SQ ONE (02:12)
[2018-03-17] MEDS ORDERED: PROCARDIA 10 MG PO ONE ×2 (04:50→05:00)
[2018-03-17] MEDS ORDERED: PROCARDIA 10 MG ONE (05:04)
--- NOTE | 2018-03-17 08:30 | PCM.SSS ---
History of Present Illness - Chief Complaint Chief Complaint: having contractions History of Present Illness: is a 27 year old female at 27 5/7 wks EGA who is seeing Dr Khan for her OB care but came here last night c/o contractions. she was recently diagnosed with gestational diabetes and put on progesterone injections for labor precuations. She arrived c/o contractions, was given IV LR bolus and terbutaline x 2 last night with some improvement, received procardia 10mg po x . currently no contractions on monitor, FHR 140's reactive. no leakage of fluid, no vaginal bleeding. still c/o low back pain but patient sleeping when I went in to see her and had to be awakened. - Review of Systems Constitutional: No Fever, No Chills Cardiac: No Chest Pain, No Edema, No Syncope Abdominal/Gastrointestinal: Abdominal Pain, No Nausea, No Vomiting, No Diarrhea , No Constipation Genitourinary Symptoms: No Dysuria Musculoskeletal: Back Pain Skin: No Rash All Other Systems: Reviewed and Negative Medications & Allergies Home Medications: Home Medication List Vits W-Ca,Fe,FA(<1Mg) [] 1 tablet PO DAILY 10/29/17 [History Confirmed 03/16/18] Ondansetron ODT 4 MG [Zofran Odt 4 mg] 4 mg PO Q4H PRN PRN #10 tab.rapdis 01/03/18 [Rx Confirmed 03/16/18] Hydroxyprogesterone Caproat/Pf [[place] 250 mg/ml Vial] 250 mg IJ WEEKLY [History Confirmed 03/16/18] Allergies/Adverse Reactions: Allergies Allergy/AdvReac Type Severity Reaction Status Date / Time latex Allergy Severe STOPPED Verified 01/03/18 18:52 BREATHING ketorolac [From Toradol] Allergy Verified 01/03/18 18:52 levothyroxine sodium Allergy Verified 01/03/18 18:52 [From Synthroid] methylphenidate Allergy Verified 01/03/18 18:52 [From Ritalin] aspirin AdvReac Mild Vomiting Verified 01/03/18 18:52 flu Allergy Uncoded 01/03/18 18:52 medidate AdvReac Mild VOMTIING Uncoded 01/03/18 18:52 - Past Medical History Past Medical History: Yes Neurological History: Migraines ENT History: No Pertinent History Cardiac History: Arrhythmia, Other Respiratory History: Asthma Endocrine Medical History: Hypothyroidism Musculoskelatal History: No Pertinent History GI Medical History: No Pertinent History History: No Pertinent History Pyscho-Social History: Attention Deficit Disorder Reproductive Disorders: No Pertinent History Comment: Bradycardia, hypotension (usual 90s/60s) - Past Surgical History Past Surgical History: Yes Neuro Surgical History: No Pertinent History Cardiac History: No Pertinent History Respiratory Surgery: No Pertinent History GI Surgical History: Cholecystectomy Genitourinary Surgical Hx: No Pertinent History Musculskeletal Surgical Hx: No Pertinent History Female Surgical History: Section Other Surgical History: c section - Social History Smoking Status: Never smoker Exposure to second hand smoke: No Alcohol: None Drug Use: none Significant Family History: cancer (colon/breast), diabetes, other (Gall bladder disease) - Physical Exam Vital Signs: Vital Signs - 24 hr Temp Pulse Resp BP BP 03/17/18 08:00 98.0 F 85 18 105/53 03/17/18 04:00 88 18 116/62 03/17/18 00:00 85 119/57 03/16/18 22:04 98.2 F 94 H 18 132/74 General Appearance: obese Neurologic Exam: alert, oriented x 3 Respiratory Exam: normal breath sounds, lungs clear, No respiratory distress Cardiovascular Exam: regular rate/rhythm Gastrointestinal/Abdomen Exam: soft (gravid), No tenderness Extremity Exam: normal inspection, normal range of motion, pelvis stable Skin Exam: normal color, warm, dry, No rash Results - Labs Lab/Micro Results: Lab Results-Last 24 Hours 03/16/18 03/16/18 Range/Units 01:10 01:10 Ur Collection Type CLEAN CATCH Urine Color YELLOW (YELLOW) Urine Appearance CLEAR (CLEAR) Urine pH 5.0 (5-6) Ur Specific Peak 1.025 (1.005-1.025) Urine Protein NEGATIVE (Negative) Urine Ketones LARGE (NEGATIVE) Urine Blood NEGATIVE (0-5) Reymundo/ul Urine Nitrite NEGATIVE (NEGATIVE) Urine Bilirubin NEGATIVE (NEGATIVE) Urine Urobilinogen NORMAL (0-1) mg/dL Ur Leukocyte Esterase NEGATIVE (NEGATIVE) Urine Glucose NEGATIVE (NEGATIVE) mg/dL Urine Opiates Level NEGATIVE (NEGATIVE) Ur Methadone NEGATIVE (NEGATIVE) Urine Barbiturates NEGATIVE (NEGATIVE) Ur Phencyclidine (PCP) NEGATIVE (NEGATIVE) Urine Amphetamine NEGATIVE (NEGATIVE) U Benzodiazepine Level NEGATIVE (NEGATIVE) Urine Cocaine NEGATIVE (NEGATIVE) Urine Marijuana (THC) NEGATIVE (NEGATIVE) Specimen Received 03/17/18 0110 Assessment/Plan (1) contractions Current Visit: Yes Status: Acute Assessment & Plan: no contractions currently, SVE closed. advised to go home on bedrest and f/u with her OB, call today for appointment Code(s): O47.9 - FALSE LABOR, UNSPECIFIED (2) History of delivery Current Visit: Yes Status: Acute Code(s): Z87.51 - PERSONAL HISTORY OF PRE- TERM LABOR (3) Gestational diabetes Current Visit: Yes Status: Acute Code(s): O24.419 - GESTATIONAL DIABETES MELLITUS IN , [facility] Summary - Vitals & Intake/Output Vital Signs: Vital Signs Temperature 98.0 F 03/17/18 08:00 Pulse Rate 85 03/17/18 08:00 Respiratory Rate 18 03/17/18 08:00 Blood Pressure 105/53 03/17/18 08:00 O2 Sat by Pulse Oximetry Intake & Output: Intake & Output 03/14/18 03/15/18 03/16/18 03/17/18 11:59 11:59 11:59 11:59 Weight 119.748 kg - Lab Lab Results-Last 24 Hrs: Lab Results-Last 24 Hours 03/16/18 03/16/18 Range/Units 01:10 01:10 Ur Collection Type CLEAN CATCH Urine Color YELLOW (YELLOW) Urine Appearance CLEAR (CLEAR) Urine pH 5.0 (5-6) Ur Specific Peak 1.025 (1.005-1.025) Urine Protein NEGATIVE (Negative) Urine Ketones LARGE (NEGATIVE) Urine Blood NEGATIVE (0-5) Reymundo/ul Urine Nitrite NEGATIVE (NEGATIVE) Urine Bilirubin NEGATIVE (NEGATIVE) Urine Urobilinogen NORMAL (0-1) mg/dL Ur Leukocyte Esterase NEGATIVE (NEGATIVE) Urine Glucose NEGATIVE (NEGATIVE) mg/dL Urine Opiates Level NEGATIVE (NEGATIVE) Ur Methadone NEGATIVE (NEGATIVE) Urine Barbiturates NEGATIVE (NEGATIVE) Ur Phencyclidine (PCP) NEGATIVE (NEGATIVE) Urine Amphetamine NEGATIVE (NEGATIVE) U Benzodiazepine Level NEGATIVE (NEGATIVE) Urine Cocaine NEGATIVE (NEGATIVE) Urine Marijuana (THC) NEGATIVE (NEGATIVE) Specimen Received 03/17/18109 - Discharge Disposition: Home, Self-Care Condition: Stable Prescriptions: No Action Vits W-Ca,Fe,FA(<1Mg) [] 1 tablet PO DAILY Ondansetron ODT 4 MG [Zofran Odt 4 mg] 4 mg PO Q4H PRN PRN #10 tab.rapdis PRN Reason: Nausea Hydroxyprogesterone Caproat/Pf [[place] 250 mg/ml Vial] 250 mg IJ WEEKLY Follow up with: CAROLIN KIM [NON-STAFF PHY W/O PRIVILEGES] - 1 Week
[2018-03-17 09:32] VITALS: BP 115/55; PULSE 76
== END 2018-03-17 09:20 | disposition home or self-care (01) ==
LOC: OB 21:26
PROVIDERS: ADMIT Family Medicine; ATTEND Family Medicine
DX: Z34.82 Encounter for supervision of other normal pregnancy, second trimester (principal)
CPT/HCPCS: 80307; 81002; G0378; 96372; A9270-GY

== ENCOUNTER 2018-05-17 15:28 | Observation (INO) | payer OTHER ==
[2018-05-17 17:22] LABS: Appearance HAZY (CLEAR); Bilirubin NEGATIVE (NEGATIVE); Blood 250 Ery/ul (0-5); Glucose NEGATIVE (NEGATIVE); Ketones NEGATIVE (NEGATIVE); Leukocyte Esterase 2+ (NEGATIVE); Nitrite NEGATIVE (NEGATIVE); Protein,Urine Dip NEGATIVE (Negative); Specific Gravity 1.015 (1.005-1.025); Urobilinogen NORMAL mg/dL (0-1)
[2018-05-17 17:35] LABS: Amphetamine,Urine NEGATIVE (NEGATIVE); Barbiturate,Urine POSITIVE (NEGATIVE); Benzodiazepine,Urine NEGATIVE (NEGATIVE); Cocaine,Urine NEGATIVE (NEGATIVE); Methadone,Urine NEGATIVE (NEGATIVE); Opiate,Urine NEGATIVE (NEGATIVE); PCP,Urine NEGATIVE (NEGATIVE); THC,Urine NEGATIVE (NEGATIVE)
[2018-05-17 17:44] LABS: Bacteria MANY /HPF (NEGATIVE); Calcium Oxalate Crystals 0-2 /HPF (NEGATIVE); Epithelial Cells MODERATE /HPF (FEW); Mucus SLIGHT /HPF (NEGATIVE); RBC 15-25 /HPF (0-2)
--- NOTE | 2018-05-17 19:09 | XRAY ---
Indication: Vaginal bleeding. Two-dimensional OB ultrasound performed. Comparison: October 29, 2017. Again there is a single viable intrauterine currently in cephalic presentation. Normal four-chamber heart with heart rate 145 BPM. Normal three-vessel cord and cord insertion. Visualized spine, stomach, kidneys, and bladder are unremarkable. Placenta is anterior without abruption/previa. BPD measures 9.38 cm corresponding to 38 weeks 1 day. HC measures 33.09 cm corresponding to 37 weeks 5 days. AC measures 32.80 cm corresponding to 36 weeks 5 days. FL measures 7.26 cm corresponding to 37 weeks 1 day. VIRGIL is 10.9 cm. Impression: Again single viable intrauterine with mean gestational age 37 weeks 3 days. Normal progression of . Fetus measures 6 days larger. No new/acute findings.
== END 2018-05-17 17:40 | disposition home or self-care (01) ==
LOC: OB 15:28 → UNDOADMOB 15:28 → UNDODISOB 17:40
PROVIDERS: ADMIT Family Medicine; ATTEND Family Medicine
DX: Z34.83 Encounter for supervision of other normal pregnancy, third trimester (principal)
CPT/HCPCS: 76805; 80307; 81000; 87086; G0378

== ENCOUNTER 2018-05-18 19:14 | Observation (INO) | payer OTHER ==
[2018-05-18 20:36] LABS: Appearance SLIGHTLY CLOUDY (CLEAR); Glucose 100 mg/dL (NEGATIVE); Leukocyte Esterase 1+ (NEGATIVE); Nitrite NEGATIVE (NEGATIVE); Protein,Urine Dip NEGATIVE (Negative); Specific Gravity 1.025 (1.005-1.025)
[2018-05-18 20:37] LABS: Bacteria FEW /HPF (NEGATIVE); Bilirubin NEGATIVE (NEGATIVE); Blood NEGATIVE Ery/ul (0-5); Epithelial Cells MODERATE /HPF (FEW); Ketones NEGATIVE (NEGATIVE); Urobilinogen NORMAL mg/dL (0-1)
[2018-05-18 20:38] LABS: Amphetamine,Urine NEGATIVE (NEGATIVE); Barbiturate,Urine POSITIVE (NEGATIVE); Benzodiazepine,Urine NEGATIVE (NEGATIVE); Cocaine,Urine NEGATIVE (NEGATIVE); Methadone,Urine NEGATIVE (NEGATIVE); Opiate,Urine NEGATIVE (NEGATIVE); PCP,Urine NEGATIVE (NEGATIVE); THC,Urine NEGATIVE (NEGATIVE)
[2018-05-18 21:23] VITALS: BP 135/87; PULSE 100
== END 2018-05-18 21:38 | disposition home or self-care (01) ==
LOC: OB 19:14 → UNDOADMOB 19:14 → UNDODISOB 21:38
PROVIDERS: ADMIT Family Medicine; ATTEND Family Medicine
DX: Z34.83 Encounter for supervision of other normal pregnancy, third trimester (principal)
CPT/HCPCS: 80307; 81000; G0378

== ENCOUNTER 2018-05-19 11:38 | Observation (INO) | payer OTHER ==
[2018-05-19] MEDS ORDERED: Lactated Ringers 1,000 ML IV SCH (14:00)
[2018-05-19] MEDS ORDERED: BRETHINE 1 MG/ML SQ ONE (15:36)
[2018-05-19 18:00] VITALS: BP 120/79; PULSE 88
== END 2018-05-19 17:55 | disposition home or self-care (01) ==
LOC: OB 11:38
PROVIDERS: ADMIT Family Medicine; ATTEND Family Medicine
DX: Z34.83 Encounter for supervision of other normal pregnancy, third trimester (principal)
CPT/HCPCS: 82962; 93005; G0378

== ENCOUNTER 2018-05-23 14:30 | Observation (INO) | payer OTHER ==
[2018-05-23 14:53] VITALS: BP 127/71; PULSE 85
== END 2018-05-23 15:51 | disposition home or self-care (01) ==
LOC: OB 14:30
PROVIDERS: ADMIT Family Medicine; ATTEND Family Medicine
DX: Z34.83 Encounter for supervision of other normal pregnancy, third trimester (principal)
CPT/HCPCS: G0378

== ENCOUNTER 2018-05-24 11:27 | Inpatient (IN) | payer OTHER ==
[2018-05-24] MEDS ORDERED: CEFAZOLIN 2 GM-D5W BAG** 2 GM/50 ML ML IV SCH (17:30)
[2018-05-25] MEDS ORDERED: Lactated Ringers 1,000 ML IV SCH ×2 (00:01)
[2018-05-25] MEDS ORDERED: Reglan 10 MG/2 ML IV SCH (00:01)
[2018-05-25] MEDS ORDERED: Pepcid 20 MG VIAL IV SCH (00:01)
[2018-05-25] MEDS ORDERED: BICITRA 30 ML CUP PO SCH (00:01)
[2018-05-25 01:45] LABS: Hematocrit 33.7 % (35-47); Hemoglobin 10.9 gm/dl (12.0-16.0); Mean Cell Volume 71.9 fl (78-100); Mean Corpuscular Hemoglobin 23.2 pg (26-32); Mean Corpuscular Hgb Concent. 32.3 g/dl (32-36); Mean Platelet Volume 11.4 fl (6-9.5); Platelet Count 213 K/mm3 (150-450); Red Blood Count 4.69 M/mm3 (4.1-5.4); Red Cell Distribution Width 15.2 % (11.5-14.0); White Blood Count 7.4 K/mm3 (4.0-10.5)
[2018-05-25 02:10] LABS: INR 1.01 (0.8-3.0)
[2018-05-25 02:13] LABS: PTT 27.8 SECONDS (25.3-37.0)
[2018-05-25] MEDS ORDERED: Lactated Ringers 1,000 ML IV ONE ×2 (06:30→08:47)
[2018-05-25] MEDS ORDERED: CEFAZOLIN 2 GM-D5W BAG** 2 GM/50 ML ML IV ONE (07:10)
[2018-05-25 07:27] LABS: Appearance CLOUDY (CLEAR); Bilirubin NEGATIVE (NEGATIVE); Blood NEGATIVE Ery/ul (0-5); Ketones NEGATIVE (NEGATIVE); Nitrite NEGATIVE (NEGATIVE); Protein,Urine Dip NEGATIVE (Negative); Urobilinogen NORMAL mg/dL (0-1)
[2018-05-25 07:56] LABS: ABO TYPING A; Antibody Screen NEGATIVE (NEGATIVE); RH TYPING POSITIVE
[2018-05-25 08:33] LABS: Glucose 50 mg/dL (NEGATIVE); Leukocyte Esterase NEGATIVE (NEGATIVE); Specific Gravity 1.025 (1.005-1.025)
[2018-05-25] MEDS ORDERED: Dermoplast Spray TP PRN (11:07)
[2018-05-25] MEDS ORDERED: Phenergan 25 MG INJ IM PRN ×2 (11:07→15:32)
[2018-05-25] MEDS ORDERED: HOLD NARCOTIC ANALGESICS AND SEDATIVES X24 HR MC PRN (11:07)
[2018-05-25] MEDS ORDERED: BENADRYL 50 MG/ML IV PRN (11:07)
[2018-05-25] MEDS ORDERED: Anucort-HC SUPPOSITORY PR PRN (11:07)
[2018-05-25] MEDS ORDERED: TUCKS TP PRN (11:07)
[2018-05-25] MEDS ORDERED: Sodium Chloride 0.9% 10 ML FLUSH Syringe IJ PRN (11:07)
[2018-05-25] MEDS ORDERED: Mylicon 80MG PO PRN (11:07)
[2018-05-25] MEDS ORDERED: Zofran 4 MG/2 ML VIAL IV PRN (11:07)
[2018-05-25] MEDS ORDERED: Narcan 0.4 MG/ML IV PRN (11:07)
[2018-05-25] MEDS ORDERED: TYLENOL EXTRA STRENGTH 500 MG PO PRN (11:07)
[2018-05-25] MEDS ORDERED: Dulcolax 10 MG SUPP PR PRN (11:07)
[2018-05-25] MEDS ORDERED: MORPHINE SULFATE 2 MG INJ IV PRN (11:07)
[2018-05-25] MEDS ORDERED: DEMEROL 50 MG IV PRN (11:07)
[2018-05-25] MEDS ORDERED: LANSINOH 40 GM TOP PRN (11:07)
[2018-05-25] MEDS ORDERED: CLARITIN 10 MG PO PRN (11:07)
[2018-05-25] MEDS ORDERED: Nubain 10 MG/ML IV PRN (11:07)
[2018-05-25] MEDS ORDERED: CORTISONE 1% CREAM TP PRN (11:07)
[2018-05-25] MEDS: PERCOCET TABLET 5/325MG PO PRN ×3 (12:42→21:06)
[2018-05-25] MEDS ORDERED: M-M-R II Vaccine With Diluent SQ ONE (13:00)
--- NOTE | 2018-05-25 13:17 | OP ---
SURGERY DATE/TIME: 05/25/2018 0800 PREOPERATIVE DIAGNOSES: 1) Term intrauterine . 2) History of prior section. 3) Gestational diabetes mellitus A2. POSTOPERATIVE DIAGNOSES: 1) Term intrauterine . 2) History of prior section. 3) Gestational diabetes mellitus A2. PROCEDURE: Repeat low transverse section. SURGEON: Elmer Contreras M.D. ESTIMATED BLOOD LOSS: 300 cc. IV FLUIDS: 2 liters of crystalloid. URINE OUTPUT: 150 cc of clear straw-colored urine. ANESTHESIA: Spinal by Heriberto Agudelo CRNA. SPECIMENS: None. DESCRIPTION OF PROCEDURE: After informed written consent was obtained, the patient was taken to the operating room. She was prepped and draped in the usual sterile fashion. A low transverse skin incision was made by knife after adequate level of anesthesia was assessed. The incision was carried through the subcutaneous fat to the level of the fascia and was nicked on both sides of the midline. Fascial incision was then extended in horizontal fashion using curved Wong scissors. The superior free edge of the fascia was grasped with Karen clamps and the underlying rectus muscles were dissected free. The same was repeated inferiorly. The peritoneal cavity was opened and extended in horizontal fashion. Bladder blade was created and reflected over the lower uterine segment. A horizontal uterine incision was made by knife and carried down to the level of the amniotic membranes which were carefully artificially ruptured. A viable female delivered from the vertex presentation with loose nuchal x1. The cord was clamped and cut and she was handed off to the awaiting nursery team. The placenta was manually removed from the uterus and the uterus was exteriorized. The uterine cavity was sponge curetted clean with lap sponge. The uterine incision was then closed with #1 chromic in a running locked fashion with good closure and good hemostasis. The posterior cul-de-sac was wiped free of blood and clot and the uterus was returned to the peritoneal cavity. Lateral gutters were wiped free of blood and clot. The uterine incision was inspected and noted to be hemostatic. Next, the fascia was closed with 0 Vicryl in a running fashion with good closure and good hemostasis. The subcutaneous fat was irrigated with warm, sterile saline. The space in the subcutaneous fat was then closed with 3-0 Vicryl in a running fashion with good approximation of the subcutaneous fat. Next, the skin layer was closed with 4-0 undyed Vicryl in a running subcuticular fashion. Steri-Strips and occlusive dressing were placed over the incision. The patient was transferred to the recovery in excellent condition.
[2018-05-25] MEDS ORDERED: Ambien 10 MG PO PRN (15:31)
[2018-05-25] MEDS ORDERED: DEMEROL 75 MG IM PRN (15:31)
[2018-05-25] MEDS: Dextrose 5%-Lr IV Solution 1000 ML 1,000 ML IV SCH ×2 (17:28→19:27)
[2018-05-25] MEDS ORDERED: NON-FORMULARY ITEM (Omeprazole 20 Mg [Prilosec 20 Mg] 20 MG) PO SCH (22:00)
[2018-05-25] MEDS ORDERED: Protonix 40MG Tablet PO SCH (22:00)
[2018-05-25] MEDS: Colace 100 MG PO SCH (22:59)
[2018-05-26] MEDS: PERCOCET TABLET 5/325MG PO PRN ×2 (02:18→06:34)
[2018-05-26] MEDS: MOTRIN 400 MG PO PRN ×3 (06:34→23:29)
[2018-05-26 06:59] LABS: BASOPHIL % 0.2 % (0.0-0.4); Basophil (Absolute #) 0.02 (0-0.4); Eosinophil % 0.2 % (0.00-5.0); Eosinophil (Absolute #) 0.02 (0-0.5); Granulocyte Absolute (ANC) 6.06 (1.4-6.9); Granulocytes % 70.5 % (36.0-66.0); Hematocrit 29.5 % (35-47); Hemoglobin 9.4 gm/dl (12.0-16.0); Lymphocyte (Absolute #) 1.81 (1.0-4.6); Mean Cell Volume 72.5 fl (78-100); Mean Corpuscular Hgb Concent. 31.9 g/dl (32-36); Monocytes % 8.1 % (0.0-12.0); Platelet Count 175 K/mm3 (150-450); Red Blood Count 4.07 M/mm3 (4.1-5.4); Red Cell Distribution Width 14.9 % (11.5-14.0); White Blood Count 8.6 K/mm3 (4.0-10.5)
[2018-05-26 08:12] VITALS: O2SAT 100
[2018-05-26] MEDS ORDERED: Astramorph-Pf 5 MG/10 ML IV ONE (08:19)
[2018-05-26] MEDS ORDERED: Decadron 4 MG INJ IV ONE (08:19)
[2018-05-26] MEDS ORDERED: Zofran 4 MG/2 ML VIAL IV ONE (08:19)
[2018-05-26] MEDS ORDERED: Xylocaine-Mpf 2% 5 Ml Vial IJ ONE (08:19)
[2018-05-26] MEDS ORDERED: Ephedrine Sulfate 50 MG/ML IV ONE (08:19)
[2018-05-26] MEDS ORDERED: Naropin 0.5% 30 ML VIAL IJ ONE (08:19)
[2018-05-26] MEDS ORDERED: Pitocin 10 UNITS/ML IV ONE (08:19)
[2018-05-26] MEDS ORDERED: PRENATAL VITS W CA FE FA PO SCH (10:00)
[2018-05-26] MEDS: NORCO 5/325 MG PO PRN ×3 (10:29→21:26)
[2018-05-26] MEDS: Colace 100 MG PO SCH ×2 (10:30→21:25)
[2018-05-26] MEDS: FERREX 150 PO SCH (10:30)
[2018-05-26] MEDS: THERAGRAN MULTIVITAMIN PO SCH (15:32)
[2018-05-27] MEDS: NORCO 5/325 MG PO PRN ×2 (02:05→08:30)
[2018-05-27] MEDS: MOTRIN 400 MG PO PRN (05:56)
[2018-05-27] MEDS: THERAGRAN MULTIVITAMIN PO SCH (08:30)
[2018-05-27] MEDS: Colace 100 MG PO SCH (08:30)
[2018-05-27] MEDS: FERREX 150 PO SCH (08:31)
--- NOTE | 2018-05-27 10:02 | PCM.DS ---
Discharge Summary Date of Admission: 05/25/18 00:02 Admitting Physician: ANNMARIE ARREGUIN Consults: Consults on Case 05/25/18 00:01 Notify Anesthesia Provider Notify Physician OF ADMISSION 05/25/18 11:07 Notify Anesthesia Provider PRN Primary Care Provider: ANNMARIE ARREGUIN Allergies Allergies latex Allergy (Severe, Verified 05/23/18 14:49) STOPPED BREATHING ketorolac [From Toradol] Allergy (Verified 05/23/18 14:49) levothyroxine sodium [From Synthroid] Allergy (Verified 05/23/18 14:49) methylphenidate [From Ritalin] Allergy (Verified 05/23/18 14:49) aspirin Adverse Reaction (Mild, Verified 05/23/18 14:49) Vomiting flu Allergy (Uncoded 01/03/18 18:52) medidate Adverse Reaction (Mild, Uncoded 01/03/18 18:52) [facility] Summary - Hospital Course Hospital Course: patient had repeat on 05/25 at 39 weeks, no complications or problems post-operative. pain controlled, tolerating po - Vitals & Intake/Output Vital Signs: Vital Signs Temperature 97.4 F 05/27/18 08:00 Pulse Rate 77 05/27/18 08:00 Respiratory Rate 18 05/27/18 08:00 Blood Pressure 156/72 05/27/18 08:00 O2 Sat by Pulse Oximetry 100 05/26/18 08:00 Intake & Output: Intake & Output 05/24/18 05/25/18 05/26/18 05/27/18 11:59 11:59 11:59 11:59 Intake Total 5169 840 Output Total 2870 Balance 2299 840 Weight 119.748 kg - Lab Result Diagrams: 05/26/18 06:52 Micro Results-Entire Visit: Microbiology 05/25/18 08:06 Urine Culture - Preliminary Catherized NO GROWTH TO DATE - Procedures and Test Procedures and Tests throughout Hospitalization: Therapy Orders & Screens 05/25/18 11:11 Oxygen OXYMASK-LPM 3% Comment: for O2 less than 93% & notify Anesthesia provider Diagnosis: repeat section Discharge Exam General Appearance: no apparent distress, alert Respiratory Exam: normal breath sounds, lungs clear, No respiratory distress Cardiovascular Exam: regular rate/rhythm, normal heart sounds Gastrointestinal/Abdomen Exam: soft, other (incision clean,dry and intact), No tenderness, No mass Extremity Exam: normal inspection, normal range of motion Final Diagnosis/Problem List - Final Discharge Diagnosis/Problem (1) delivery delivered Current Visit: Yes Status: Acute - Discharge Disposition: Home, Self-Care Condition: Stable Prescriptions: New Hydrocodone Bit/Acetaminophen [[place] 5-325 Tablet] 1 each PO Q4-6HPRN PRN # 30 tablet MDD 6 PRN Reason: Pain Continue Vits W-Ca,Fe,FA(<1Mg) [] 1 tablet PO DAILY Omeprazole 20 MG [Prilosec 20 mg] 20 mg PO HS Follow up with: ANNMARIE ARREGUIN MD [Primary Care Provider] - 1 Week
[2018-05-27 11:44] VITALS: BP 163/80; PULSE 72
== END 2018-05-27 11:55 | disposition home or self-care (01) | DRG 775 ==
LOC: OB 05-25 00:02
PROVIDERS: ADMIT Family Medicine; ATTEND Family Medicine
DX: O34.211 Maternal care for low transverse scar from previous cesarean delivery (principal); Z37.0 Single live birth; Z3A.39 39 weeks gestation of pregnancy; O24.419 Gestational diabetes mellitus in pregnancy, unspecified control
CPT/HCPCS: 36415; 64488; 76937; 76942; 81000; 85025; 85027; 85610; 85730; 86850; 86900; 86901; 87086; 90471; 90707; 94799; G0378; J0690; J1100; J2274; J2405; J2590; J2795; L0625; A9270-GY

== ENCOUNTER 2018-07-30 20:56 | Emergency (ER) | payer OTHER ==
--- NOTE | 2018-07-30 20:59 | ERPHSYRPT ---
- History of Present Illness Time Seen by Provider: 07/30/18 20:59 Source: patient Exam Limitations: no limitations Physician History: 27 y/o right handed white female presents with left hand injury. 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 no head injury. Occurred: just prior to arrival Method of Injury: fell Quality: aching Severity of Pain-Max: moderate Severity of Pain-Current: mild Extremities Pain Location: hand: left Modifying Factors: Improves With: movement (worsens) Associated Symptoms: none Allergies/Adverse Reactions: latex Allergy (Severe, Verified 07/30/18 21:10) STOPPED BREATHING ketorolac [From Toradol] Allergy (Verified 07/30/18 21:10) levothyroxine sodium [From Synthroid] Allergy (Verified 07/30/18 21:10) methylphenidate [From Ritalin] Allergy (Verified 07/30/18 21:10) aspirin Adverse Reaction (Mild, Verified 07/30/18 21:10) Vomiting flu Allergy (Uncoded 07/30/18 21:10) medidate Adverse Reaction (Mild, Uncoded 07/30/18 21:10) VOMTIING Hx Tetanus, Diphtheria Vaccination/Date Given: No Hx Influenza Vaccination/Date Given: No Hx Pneumococcal Vaccination/Date Given: No - Review of Systems Constitutional: No Symptoms Eyes: No Symptoms Ears, Nose, & Throat: No Symptoms, No Ear Pain, No Nose Pain, No Nose Congestion Respiratory: No Symptoms Cardiac: No Symptoms Abdominal/Gastrointestinal: No Symptoms Genitourinary Symptoms: No Symptoms, No Dysuria, No Hematuria Musculoskeletal: Fall, Injury (left hand), No Back Pain, No Neck Pain Skin: No Symptoms, No Cellulitis, No Pruritis, No Rash, No Skin Lesions Neurological: No Symptoms Psychological: No Symptoms Endocrine: No Symptoms Hematologic/Lymphatic: No Symptoms Immunological/Allergic: No Symptoms All Other Systems: Reviewed and Negative - Past Medical History Pertinent Past Medical History: Yes Neurological History: Migraines ENT History: No Pertinent History Cardiac History: Arrhythmia, Other Respiratory History: Asthma Endocrine Medical History: Hypothyroidism Musculoskeletal History: No Pertinent History GI Medical History: No Pertinent History History: No Pertinent History Psycho-Social History: Attention Deficit Disorder Female Reproductive Disorders: No Pertinent History Other Medical History: Bradycardia, hypotension (usual 90s/60s), Gestational Diabetes - Past Surgical History Past Surgical History: Yes Neuro Surgical History: No Pertinent History Cardiac: No Pertinent History Respiratory: No Pertinent History Gastrointestinal: Cholecystectomy Genitourinary: No Pertinent History Musculoskeletal: No Pertinent History Female Surgical History: Section Other Surgical History: c section - Social History Smoking Status: Former smoker How long have you smoked: 8 years Exposure to second hand smoke: No Drug Use: none Patient Lives Alone: No Significant Family History: cancer (colon/breast), diabetes, other (Gall bladder disease) - Nursing Vital Signs Nursing Vital Signs: Initial Vital Signs Pulse Rate 69 07/30/18 21:01 Respiratory Rate 18 07/30/18 21:01 Blood Pressure 140/70 07/30/18 21:01 O2 Sat by Pulse Oximetry 99 07/30/18 21:01 Pain Scale Pain Intensity 8 - Physical Exam General Appearance: no apparent distress, alert Eyes, Ears, Nose, Throat Exam: normal ENT inspection Neck Exam: normal inspection, non-tender, supple, full range of motion Cardiovascular/Respiratory Exam: chest non-tender, normal breath sounds, regular rate/rhythm, heart sounds normal Abdominal Exam: non-tender Back Exam: normal inspection, normal range of motion, No CVA tenderness, No vertebral tenderness Shoulder Exam: normal inspection, non-tender, normal ROM Elbow/Forearm Exam: normal inspection, non-tender, no evidence of injury, normal ROM Wrist Exam: normal inspection, non-tender, no evidence of injury, normal ROM Hand Exam: no evidence of injury, normal ROM, bone tenderness (left 5th metatarsal lateral) Neuro/Tendon Exam: normal sensation, normal motor functions, normal tendon functions, responds to pain, no evidence tendon injury Mental Status Exam: alert, oriented x 3, cooperative, agitated Skin Exam: normal color, warm, dry SpO2 Interpretation: normal - Course Nursing assessment & vital signs reviewed: Yes Ordered Tests: Active Orders 24 hr Category Date Time Status HAND (MINIMUM 3 VIEWS) Stat Exams 07/30/18 22:00 Taken Lab/Rad Data: xray left hand-no acute fx or dislocation - Progress Progress: unchanged, pain not gone completely, re-examined Counseled pt/family regarding: diagnosis, need for follow-up, rad results - Departure Time of Disposition: 22:13 Departure Disposition: Home Clinical Impression: Hand contusion Condition: Stable Critical Care Time: No Referrals: ANNMARIE ARREGUIN MD [Primary Care Provider] - Additional Instructions: ice pack to area 3 times daily for 2 days. use tylenol for pain. follow up with primary doctor for persistent pain.
[2018-07-30 21:09] VITALS: BP 140/70; PULSE 69; O2SAT 99
--- NOTE | 2018-08-02 07:21 | XRAY ---
Indication: 5th digit pain following fall. Comparison: None 3 views of the left hand demonstrates ring at the base of the 4th finger. No other bony, articular, or soft tissue abnormalities.
== END 2018-07-30 22:20 | disposition home or self-care (01) ==
LOC: ED 20:56
DX: S60.222A Contusion of left hand, initial encounter (principal); M79.642 Pain in left hand; W01.0XXA Fall on same level from slipping, tripping and stumbling without subsequent striking against object, initial encounter; Y93.01 Activity, walking, marching and hiking; Y92.096 Garden or yard of other non-institutional residence as the place of occurrence of the external cause
CPT/HCPCS: 73130; 99283

== ENCOUNTER 2018-12-27 10:58 | Emergency (ER) | payer OTHER, MEDICAID ==
--- NOTE | 2018-12-27 11:30 | ERPHSYRPT ---
- History of Present Illness Time Seen by Provider: 12/27/18 11:27 Source: patient Exam Limitations: no limitations Patient Subjective Stated Complaint: PT STATES YESTERDAY SHE BENT OVER TO LIFT HER 6 MONTH OLD DAUGHTER, WHEN SHE STOOD SHE "FELT A POP" AND HAS SINCE HAD LT LOWER BACK PAIN THAT RADIATES DOWN LEFT LEG. Triage Nursing Assessment: PINK/WARM/DRY, RESP EASY, A&OX4, LIMPING GAIT, NO DEFORMITY NOTED. 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 She states she is having pain shooting down her left leg she has no sensory problems she has no urine problems. No nausea no vomiting no vaginal bleeding. Past medical history includes migraines, arrhythmia, hypothyroidism, asthma, ADD , bradycardia, hypertension, gestational diabetes Past surgical history includes cholecystectomy and Timing/Duration: yesterday Severity: moderate Modifying Factors: Improves With: movement Associated Symptoms: other (low back pain), No nausea, No vomiting, No abdominal pain, No shortness of breath, No heartburn, No diaphoresis, No cough, No chills, No chest pain, No fever, No headaches, No loss of appetite, No malaise, No rash, No syncope, No seizure Allergies/Adverse Reactions: latex Allergy (Severe, Verified 12/27/18 11:13) STOPPED BREATHING Influenza Virus Vaccines Allergy (Verified 12/27/18 11:13) ketorolac [From Toradol] Allergy (Verified 12/27/18 11:13) levothyroxine sodium [From Synthroid] Allergy (Verified 12/27/18 11:13) methylphenidate [From Ritalin] Allergy (Verified 12/27/18 11:13) aspirin Adverse Reaction (Mild, Verified 12/27/18 11:13) Vomiting medidate Adverse Reaction (Mild, Uncoded 07/30/18 21:10) VOMTIING Home Medications: Vits W-Ca,Fe,FA(<1Mg) [] 1 tab PO DAILY 12/27/18 [History] Hx Tetanus, Diphtheria Vaccination/Date Given: Yes Hx Influenza Vaccination/Date Given: No Hx Pneumococcal Vaccination/Date Given: No Immunizations Up to Date: Yes - Review of Systems Constitutional: No Fever, No Chills Eyes: No Symptoms Ears, Nose, & Throat: No Symptoms Respiratory: No Cough, No Dyspnea Cardiac: No Chest Pain, No Edema, No Syncope Abdominal/Gastrointestinal: No Abdominal Pain, No Nausea, No Vomiting, No Diarrhea Genitourinary Symptoms: No Dysuria Musculoskeletal: Back Pain (pain in the low left sacral region) Skin: No Symptoms Neurological: No Dizziness, No Focal Weakness, No Sensory Changes Psychological: No Symptoms Endocrine: No Symptoms All Other Systems: Reviewed and Negative - Past Medical History Pertinent Past Medical History: Yes Neurological History: Migraines ENT History: No Pertinent History Cardiac History: Arrhythmia, Other Respiratory History: Asthma Endocrine Medical History: Hypothyroidism Musculoskeletal History: No Pertinent History GI Medical History: No Pertinent History History: No Pertinent History Psycho-Social History: Attention Deficit Disorder Female Reproductive Disorders: No Pertinent History Other Medical History: Bradycardia, hypotension (usual 90s/60s), Gestational Diabetes - Past Surgical History Past Surgical History: Yes Neuro Surgical History: No Pertinent History Cardiac: No Pertinent History Respiratory: No Pertinent History Gastrointestinal: Cholecystectomy Genitourinary: No Pertinent History Musculoskeletal: No Pertinent History Female Surgical History: Section Other Surgical History: c section - Social History Smoking Status: Former smoker How long have you smoked: 8 years Exposure to second hand smoke: Yes Drug Use: none Patient Lives Alone: No Significant Family History: cancer (colon/breast), diabetes, other (Gall bladder disease) - Female History Hx Last Menstrual Period: 11/19/18 Hx Now: Yes (6WEEKS) Gestational Age: 6 WEEKS - Nursing Vital Signs Nursing Vital Signs: Initial Vital Signs Temperature 98.3 F 12/27/18 11:14 Pulse Rate 84 12/27/18 11:14 Respiratory Rate 16 12/27/18 11:14 Blood Pressure 131/72 12/27/18 11:14 O2 Sat by Pulse Oximetry 98 12/27/18 11:14 Pain Scale Pain Intensity [Left Lower 8 Back] Pain Intensity 8 - Physical Exam General Appearance: mild distress, alert Eye Exam: PERRL/EOMI, eyes nml inspection Ears, Nose, Throat Exam: normal ENT inspection, TMs normal, pharynx normal, moist mucous membranes Neck Exam: normal inspection, non-tender, supple, full range of motion Respiratory Exam: normal breath sounds, lungs clear, No respiratory distress Cardiovascular Exam: regular rate/rhythm, normal heart sounds, normal peripheral pulses, capillary refill <2 sec Gastrointestinal/Abdomen Exam: soft, normal bowel sounds, No tenderness, No mass Back Exam: other (tenderness with movement and palpation low left sacral region. ) Extremity Exam: normal inspection, normal range of motion, pelvis stable Neurologic Exam: alert, oriented x 3, cooperative, fluid power mechanic II-XII nml as tested, normal mood/affect, nml cerebellar function, nml station & gait, sensation nml, No motor deficits Skin Exam: normal color, warm, dry, No rash Lymphatic Exam: No adenopathy SpO2 Interpretation: normal (98%) SpO2: 98 Ordered Tests: Active Orders 24 hr Category Date Time Status HCG,QUALITATIVE URINE Stat Lab 12/27/18 11:47 Completed UA W/RFX UR CULTURE Stat Lab 12/27/18 11:47 Completed Lab/Rad Data: Laboratory Results 12/27/18 12/27/18 Range/Units 11:47 11:47 Urine Color YELLOW (YELLOW) Urine Appearance CLEAR (CLEAR) Urine pH 6.0 (5-6) Ur Specific [place] 1.010 (1.005-1.025) Urine Protein NEGATIVE (Negative) Urine Ketones NEGATIVE (NEGATIVE) Urine Blood NEGATIVE (0-5) Reymundo/ul Urine Nitrite NEGATIVE (NEGATIVE) Urine Bilirubin NEGATIVE (NEGATIVE) Urine Urobilinogen NORMAL (0-1) mg/dL Ur Leukocyte Esterase NEGATIVE (NEGATIVE) Urine WBC (Auto) NONE (0-5) /HPF Urine RBC (Auto) NONE (0-2) /HPF U Epithel Cells (Auto) NONE (FEW) /HPF Urine Bacteria (Auto) NONE (NEGATIVE) /HPF Urine Culture Reflexed NO (NO) Urine Glucose NEGATIVE (NEGATIVE) mg/dL Urine HCG, Qual POSITIVE (Negative) - Progress Progress: improved Progress Note: 12/27/18 12:19 28-year-old white female arrives with complaint of pain in the left low sacral area radiating down her left leg symptoms since yesterday symptoms began after she was bending over. Patient with normal neurological exam she has had no urinary symptoms patient is approximately 6 weeks . Patient with point tenderness in the low sacral area on the left with movement and palpation. Will give patient [place] tablet one orally will write for a small amount of these for at home. Patient to follow-up with her family doctor. 12/27/18 12:23 Patient advised that patient's fetus will receive any medication that she takes hydrocodone is category C. Patient denies any substance abuse. Inspect reviewed while using mechanical transmission of prescription. - Departure Time of Disposition: 12:20 Departure Disposition: Home Clinical Impression: Lumbar strain Qualifiers: Encounter type: initial encounter Qualified Code(s): S39.012A - Strain of muscle, fascia and tendon of lower back, initial encounter Qualifiers: Weeks of gestation: less than 8 weeks Qualified Code(s): Z3A.01 - Less than 8 weeks gestation of Condition: Fair Critical Care Time: No Referrals: ANNMARIE ARREGUIN MD [Primary Care Provider] - Additional Instructions: Return home. Rest. [place] as prescribed. Follow-up with your family doctor. Return for acute distress or for severe symptoms. Prescriptions: Hydrocodone/APAP 5-325 Tab^^^ [[place] 5-325 Tablet^^^] 1 tab PO Q6HPRN PRN #10 tablet MDD 6 PRN Reason: Pain
[2018-12-27 12:09] LABS: Appearance CLEAR (CLEAR); Bilirubin NEGATIVE (NEGATIVE); Blood NEGATIVE Ery/ul (0-5); Glucose NEGATIVE (NEGATIVE); Ketones NEGATIVE (NEGATIVE); Leukocyte Esterase NEGATIVE (NEGATIVE); Nitrite NEGATIVE (NEGATIVE); Protein,Urine Dip NEGATIVE (Negative); Urobilinogen NORMAL mg/dL (0-1)
[2018-12-27] MEDS ORDERED: NORCO 5/325 MG PO ONE (12:19)
[2018-12-27] MEDS ORDERED: NORCO 5/325 MG ONE (12:29)
[2018-12-27 12:46] VITALS: BP 111/73; PULSE 71; O2SAT 96
== END 2018-12-27 12:48 | disposition home or self-care (01) ==
LOC: ED 10:58
DX: S39.012A Strain of muscle, fascia and tendon of lower back, initial encounter (principal); X50.0XXA Overexertion from strenuous movement or load, initial encounter; Z3A.01 Less than 8 weeks gestation of pregnancy; E03.9 Hypothyroidism, unspecified; J45.909 Unspecified asthma, uncomplicated; I10 Essential (primary) hypertension; Z80.0 Family history of malignant neoplasm of digestive organs
CPT/HCPCS: 81001; 84703; 99283; A9270-GY

== ENCOUNTER 2019-01-08 17:32 | Emergency (ER) | payer OTHER, MEDICAID ==
[2019-01-08] MEDS ORDERED: Sodium Chloride 0.9% 1000 ML 1,000 ML ONE (18:05)
[2019-01-08] MEDS: Sodium Chloride 0.9% 1000 ML 1,000 ML IV STA (18:06)
[2019-01-08 18:32] LABS: Amourphous Crystal FEW /HPF (NEGATIVE); Appearance CLOUDY (CLEAR); Bacteria MANY /HPF (NEGATIVE); Bilirubin NEGATIVE (NEGATIVE); Blood NEGATIVE Ery/ul (0-5); Epithelial Cells RARE /HPF (FEW); Glucose NEGATIVE (NEGATIVE); Ketones NEGATIVE (NEGATIVE); Leukocyte Esterase NEGATIVE (NEGATIVE); Mucus SLIGHT /HPF (NEGATIVE); Nitrite NEGATIVE (NEGATIVE); Protein,Urine Dip NEGATIVE (Negative); Urobilinogen NEGATIVE mg/dL (0-1)
[2019-01-08] MEDS: TYLENOL EXTRA STRENGTH 500 MG PO STA (18:51)
[2019-01-08] MEDS ORDERED: TYLENOL EXTRA STRENGTH 500 MG ONE (18:51)
--- NOTE | 2019-01-08 20:33 | ERPHSYRPT ---
- History of Present Illness Source: patient Exam Limitations: no limitations Patient Subjective Stated Complaint: pt here for abd cramping, with some sharp pains, no fever. pt is eating and drinking well Triage Nursing Assessment: pt alert, resp easy, skin w/d/p. abd soft , pt is preegnant, 4 para 2 Physician History: Pt is a 28 y/o female that is 7 week . Secondary to h/o miscarriage, she is followed by Dr Arreguin and series of HCGs. Pt started having abdominal cramps, with no vaginal bleeding, and as the cramps were stronger, she was refereed to the ED by Dr Arreguin. Pt denies F/C/S. No dysuria, frequency or urgency. No N/V/D. Timing/Duration: today Activites at Onset: none Quality: cramping Onset Location: periumbilical Pain Radiation: none Severity of Pain-Max: mild Severity of Pain-Current: none Prior abdominal problems: other (H/O miscarrige) Modifying Factors: Improves With: nothing Associated Symptoms: denies symptoms Allergies/Adverse Reactions: latex Allergy (Severe, Verified 01/08/19 17:47) STOPPED BREATHING Influenza Virus Vaccines Allergy (Verified 01/08/19 17:47) ketorolac [From Toradol] Allergy (Verified 01/08/19 17:47) levothyroxine sodium [From Synthroid] Allergy (Verified 01/08/19 17:47) methylphenidate [From Ritalin] Allergy (Verified 01/08/19 17:47) aspirin Adverse Reaction (Mild, Verified 01/08/19 17:47) Vomiting medidate Adverse Reaction (Mild, Uncoded 01/08/19 17:47) VOMTIING Home Medications: Vits W-Ca,Fe,FA(<1Mg) [] 1 tab PO DAILY 12/27/18 [History] Hx Tetanus, Diphtheria Vaccination/Date Given: Yes Hx Influenza Vaccination/Date Given: No Hx Pneumococcal Vaccination/Date Given: No - Review of Systems Constitutional: No Fever, No Chills Eyes: No Symptoms Ears, Nose, & Throat: No Symptoms Respiratory: No Cough, No Dyspnea Cardiac: No Chest Pain, No Edema, No Syncope Abdominal/Gastrointestinal: Abdominal Pain (Abdominal cramps), No Nausea, No Vomiting, No Diarrhea Genitourinary Symptoms: No Dysuria Musculoskeletal: No Back Pain, No Neck Pain Neurological: No Dizziness, No Focal Weakness, No Sensory Changes - Past Medical History Pertinent Past Medical History: Yes Neurological History: Migraines ENT History: No Pertinent History Cardiac History: Arrhythmia, Other Respiratory History: Asthma Endocrine Medical History: Hypothyroidism Musculoskeletal History: No Pertinent History GI Medical History: No Pertinent History History: No Pertinent History Psycho-Social History: Attention Deficit Disorder Female Reproductive Disorders: No Pertinent History Other Medical History: Bradycardia, hypotension (usual 90s/60s), Gestational Diabetes - Past Surgical History Past Surgical History: Yes Neuro Surgical History: No Pertinent History Cardiac: No Pertinent History Respiratory: No Pertinent History Gastrointestinal: Cholecystectomy Genitourinary: No Pertinent History Musculoskeletal: No Pertinent History Female Surgical History: Section Other Surgical History: c section - Social History Smoking Status: Never smoker How long have you smoked: 8 years Exposure to second hand smoke: No Drug Use: none Patient Lives Alone: No Significant Family History: cancer (colon/breast), diabetes, other (Gall bladder disease) - Female History Hx Last Menstrual Period: nov 19 Hx Now: Yes Expected Date of Delivery: 08/26/19 - Nursing Vital Signs Nursing Vital Signs: Initial Vital Signs Temperature 98.7 F 01/08/19 17:35 Pulse Rate 78 01/08/19 17:35 Respiratory Rate 18 01/08/19 17:35 Blood Pressure 127/66 01/08/19 17:35 O2 Sat by Pulse Oximetry 97 01/08/19 17:35 Pain Scale Pain Intensity 7 - Physical Exam General Appearance: no apparent distress, alert Eye Exam: PERRL/EOMI, eyes nml inspection Ears, Nose, Throat Exam: normal ENT inspection, pharynx normal, moist mucous membranes Respiratory Exam: normal breath sounds, lungs clear, No respiratory distress Cardiovascular Exam: regular rate/rhythm, normal heart sounds, normal peripheral pulses Gastrointestinal/Abdomen Exam: soft, No tenderness, No mass Back Exam: normal inspection, normal range of motion, No CVA tenderness, No vertebral tenderness Extremity Exam: normal inspection, normal range of motion, pelvis stable Neurologic Exam: alert, oriented x 3, cooperative, manual arts therapist II-XII nml as tested, normal mood/affect, sensation nml, No motor deficits SpO2: 99 - Course Nursing assessment & vital signs reviewed: Yes - Radiology Ultrasound Exam Pelvis Ultrasound: Other (Normal size for . HR of 126.) Ordered Tests: Active Orders 24 hr Category Date Time Status IV Insertion STAT Care 01/08/19 17:51 Active OB <14 WKS 1ST GESTATION [US] Stat Exams 01/08/19 18:02 Ordered HCG, Quantitative (Inhouse) Stat Lab 01/08/19 18:24 Completed UA W/RFX UR CULTURE Stat Lab 01/08/19 18:24 Completed Medication Summary Discontinued Medications Generic Name Dose Route Start Last Admin Trade Name Alis PRN Reason Stop Dose Admin Acetaminophen 1,000 mg 01/08/19 18:42 01/08/19 18:51 Tylenol Extra Strength 500 Mg PO 01/08/19 18:43 1,000 mg STAT STA Administration Acetaminophen Confirm 01/08/19 18:51 Tylenol Extra Strength 500 Mg Administered 01/08/19 18:52 Dose 1,000 mg .ROUTE .STK-MED ONE Sodium Chloride 1,000 mls @ 999 mls/hr 01/08/19 18:01 01/08/19 19:08 Sodium Chloride 0.9% 1000 Ml IV 01/08/19 19:01 Infused .Q1H1M STA Infusion Sodium Chloride Confirm 01/08/19 18:05 Sodium Chloride 0.9% 1000 Ml Administered 01/08/19 18:06 Dose 1,000 mls @ ud .ROUTE .STK-MED ONE Lab/Rad Data: Laboratory Results 01/08/19 01/08/19 Range/Units 18:24 18:24 Beta HCG, Quant 04174 mIU/ml Urine Color YELLOW (YELLOW) Urine Appearance CLOUDY (CLEAR) Urine pH 7.0 (5-6) Ur Specific [place] 1.020 (1.005-1.025) Urine Protein NEGATIVE (Negative) Urine Ketones NEGATIVE (NEGATIVE) Urine Blood NEGATIVE (0-5) Reymundo/ul Urine Nitrite NEGATIVE (NEGATIVE) Urine Bilirubin NEGATIVE (NEGATIVE) Urine Urobilinogen NEGATIVE (0-1) mg/dL Ur Leukocyte Esterase NEGATIVE (NEGATIVE) Urine WBC (Auto) 3-5 (0-5) /HPF Urine RBC (Auto) NONE (0-2) /HPF U Epithel Cells (Auto) RARE (FEW) /HPF Urine Bacteria (Auto) MANY (NEGATIVE) /HPF Amorphous Crystals FEW (NEGATIVE) /HPF Urine Mucus (Auto) SLIGHT (NEGATIVE) /HPF Urine Culture Reflexed NO (NO) Urine Glucose NEGATIVE (NEGATIVE) mg/dL - Progress Progress: improved Air Movement: good Progress Note: 01/08/19 20:34 Pt had a UA that was normal, and IVF. Her HCG is appropriate for age of , Her US was appropriate for age of gestation, and HR of 126. Pt is safe for d/c to home. Pt does have high stool burden, and should increase fiber intake. Blood Culture(s) Obtained: No Antibiotics given: No Discussed with : Ben Will see patient in: office Counseled pt/family regarding: lab results, need for follow-up, rad results - Departure Time of Disposition: 20:36 Departure Disposition: Home Clinical Impression: Abdominal cramping affecting Condition: Stable Critical Care Time: No Referrals: ANNMARIE ARREGUIN MD [Primary Care Provider] - Additional Instructions: Increase fiber and fluid intake. F/U with Dr Arreguin as out pt.
[2019-01-08 20:41] VITALS: BP 103/64; PULSE 68; O2SAT 98
--- NOTE | 2019-01-09 08:43 | XRAY ---
Indication: Cramping. Two-dimensional transvaginal early OB ultrasound performed. Comparison: None for this . There is a single intrauterine gestational sac with presence of a single pole and yolk sac. Mean crown-rump length measures 0.92 cm corresponding to 7 weeks 0 days. heart rate 127 BPM. No abnormal subchorionic fluid. Left and right ovaries identified with normal perfusion and 1.2 cm left ovary corpus luteal cyst. Tiny cul-de-sac fluid. Impression: Single viable intrauterine measuring 7 weeks 0 days. Expected date confinement is August 27, 2019. Comment: Preliminary report was given.
== END 2019-01-08 20:46 | disposition home or self-care (01) ==
LOC: ED 17:32
DX: O26.891 Other specified pregnancy related conditions, first trimester (principal); Z3A.01 Less than 8 weeks gestation of pregnancy
CPT/HCPCS: 36000; 36415; 76817; 81001; 84702; 96360; 99284; A9270-GY

== ENCOUNTER 2019-01-29 16:07 | Emergency (ER) | payer OTHER ==
[2019-01-29] MEDS ORDERED: Sodium Chloride 0.9% 1000 ML 1,000 ML IV STA (16:25)
[2019-01-29] MEDS ORDERED: Sodium Chloride 0.9% 1000 ML 1,000 ML ONE (16:32)
[2019-01-29 16:37] VITALS: O2SAT 99
[2019-01-29 16:43] LABS: Appearance CLOUDY (CLEAR); Bacteria MODERATE /HPF (NEGATIVE); Bilirubin NEGATIVE (NEGATIVE); Blood NEGATIVE Ery/ul (0-5); Epithelial Cells FEW /HPF (FEW); Glucose NEGATIVE (NEGATIVE); Ketones NEGATIVE (NEGATIVE); Leukocyte Esterase NEGATIVE (NEGATIVE); Mucus SLIGHT /HPF (NEGATIVE); Nitrite NEGATIVE (NEGATIVE); Protein,Urine Dip NEGATIVE (Negative); RBC 0-2 /HPF (0-2); Specific Gravity 1.018 (1.005-1.025); Urobilinogen NEGATIVE mg/dL (0-1)
[2019-01-29 16:43] LABS: BASOPHIL % 0.2 % (0.0-0.4); Basophil (Absolute #) 0.01 (0-0.4); Eosinophil (Absolute #) 0.11 (0-0.5); Granulocyte Absolute (ANC) 3.28 (1.4-6.9); Granulocytes % 60.8 % (36.0-66.0); Hematocrit 36.5 % (35-47); Hemoglobin 12.2 gm/dl (12.0-16.0); Lymphocyte (Absolute #) 1.62 (1.0-4.6); Mean Cell Volume 76.5 fl (78-100); Mean Corpuscular Hemoglobin 25.6 pg (26-32); Mean Corpuscular Hgb Concent. 33.4 g/dl (32-36); Mean Platelet Volume 10.3 fl (6-9.5); Monocyte (Absolute #) 0.38 (0.0-1.3); Platelet Count 217 K/mm3 (150-450); Red Blood Count 4.77 M/mm3 (4.1-5.4); Red Cell Distribution Width 14.3 % (11.5-14.0); White Blood Count 5.4 K/mm3 (4.0-10.5)
[2019-01-29] MEDS ORDERED: ROCEPHIN 1 Gm-D5w 50 ml Bag** 1 G/50 ML IVPB IV STA (16:47)
[2019-01-29] MEDS ORDERED: ROCEPHIN 1 Gm-D5w 50 ml Bag** 1 G/50 ML IVPB IV ONE (16:50)
--- NOTE | 2019-01-29 17:00 | ERPHSYRPT ---
- History of Present Illness Time Seen by Provider: 01/29/19 16:58 Historian: patient Exam Limitations: no limitations Patient Subjective Stated Complaint: lower abd cramping since wednesday evening. denies any vaginal bleeding or urinary symptoms. 4 para 2. Triage Nursing Assessment: ambulated to room per self. skin w/d, color normal, resp easy. abd soft, tender. Physician History: lower abd cramping since wednesday evening. denies any vaginal bleeding or urinary symptoms. 4 para 2. Timing/Duration: day(s) (2 days) Allergies/Adverse Reactions: latex Allergy (Severe, Verified 01/29/19 16:20) STOPPED BREATHING Influenza Virus Vaccines Allergy (Verified 01/29/19 16:20) ketorolac [From Toradol] Allergy (Verified 01/29/19 16:20) levothyroxine sodium [From Synthroid] Allergy (Verified 01/29/19 16:20) methylphenidate [From Ritalin] Allergy (Verified 01/29/19 16:20) aspirin Adverse Reaction (Mild, Verified 01/29/19 16:20) Vomiting medidate Adverse Reaction (Mild, Uncoded 01/08/19 17:47) VOMTIING Home Medications: Vits W-Ca,Fe,FA(<1Mg) [] 1 tab PO DAILY 12/27/18 [History] Hx Tetanus, Diphtheria Vaccination/Date Given: Yes (2014) Hx Influenza Vaccination/Date Given: No Hx Pneumococcal Vaccination/Date Given: No - Review of Systems Constitutional: No Symptoms Eyes: No Symptoms Ears, Nose, & Throat: No Symptoms Respiratory: No Symptoms Cardiac: No Symptoms Abdominal/Gastrointestinal: Abdominal Pain, No Nausea, No Vomiting Genitourinary Symptoms: Dysuria Musculoskeletal: No Symptoms - Past Medical History Pertinent Past Medical History: Yes Neurological History: Migraines ENT History: No Pertinent History Cardiac History: Arrhythmia, Other Respiratory History: Asthma Endocrine Medical History: Hypothyroidism Musculoskeletal History: No Pertinent History GI Medical History: No Pertinent History History: No Pertinent History Psycho-Social History: Attention Deficit Disorder Female Reproductive Disorders: No Pertinent History Other Medical History: Bradycardia, hypotension (usual 90s/60s), Gestational Diabetes - Past Surgical History Past Surgical History: Yes Neuro Surgical History: No Pertinent History Cardiac: No Pertinent History Respiratory: No Pertinent History Gastrointestinal: Cholecystectomy Genitourinary: No Pertinent History Musculoskeletal: No Pertinent History Female Surgical History: Section Other Surgical History: c section - Social History Smoking Status: Never smoker How long have you smoked: 8 years Exposure to second hand smoke: No Drug Use: none Patient Lives Alone: No Significant Family History: cancer (colon/breast), diabetes, other (Gall bladder disease) - Female History Hx Last Menstrual Period: 11/19/18 Hx Now: Yes (10 weeks) - Nursing Vital Signs Nursing Vital Signs: Initial Vital Signs Temperature 97.5 F 01/29/19 16:11 Pulse Rate 72 01/29/19 16:11 Respiratory Rate 16 01/29/19 16:11 Blood Pressure 115/56 01/29/19 16:11 O2 Sat by Pulse Oximetry 100 01/29/19 16:11 Pain Scale Pain Intensity 7 - Physical Exam General Appearance: no apparent distress Eye Exam: PERRL/EOMI Ears, Nose, Throat Exam: normal ENT inspection Neck Exam: normal inspection Respiratory Exam: normal breath sounds Cardiovascular Exam: regular rate/rhythm Gastrointestinal/Abdomen Exam: soft Back Exam: normal inspection SpO2: 99 - Course Nursing assessment & vital signs reviewed: Yes Ordered Tests: Active Orders 24 hr Category Date Time Status IV Insertion STAT Care 01/29/19 16:29 Active CBC W DIFF Stat Lab 01/29/19 16:38 Completed CMP Stat Lab 01/29/19 16:38 Received HCG, Quantitative (Inhouse) Stat Lab 01/29/19 16:38 Received HCG,QUALITATIVE URINE Stat Lab 01/29/19 16:29 Completed UA W/RFX UR CULTURE Stat Lab 01/29/19 16:29 Completed Medication Summary Discontinued Medications Generic Name Dose Route Start Last Admin Trade Name Alis PRN Reason Stop Dose Admin Sodium Chloride 1,000 mls @ 999 mls/hr 01/29/19 16:25 01/29/19 16:34 Sodium Chloride 0.9% 1000 Ml IV 01/29/19 17:25 999 mls/hr .Q1H1M STA Administration Sodium Chloride Confirm 01/29/19 16:32 Sodium Chloride 0.9% 1000 Ml Administered 01/29/19 16:33 Dose 1,000 mls @ ud .ROUTE .STK-MED ONE Ceftriaxone Sodium/Dextrose 1 g in 50 mls @ 100 mls/hr 01/29/19 16:47 17:38 Rocephin 1 Gm-D5w 50 Ml Bag IV 01/29/19 17:16 100 ml/hr STAT STA 100 mls/hr Administration Ceftriaxone Sodium/Dextrose Confirm 01/29/19 16:50 Rocephin 1 Gm-D5w 50 Ml Bag Administered 01/29/19 16:51 Dose 1 g in 50 mls @ ud IV .STK-MED ONE Lab/Rad Data: Laboratory Result Diagrams 01/29/19 16:38 Laboratory Results 01/29/19 01/29/19 01/29/19 Range/Units 16:38 16:29 16:29 WBC 5.4 (4.0-10.5) K/mm3 RBC 4.77 (4.1-5.4) M/mm3 Hgb 12.2 (12.0-16.0) gm/dl Hct 36.5 (35-47) % MCV 76.5 L (78-100) fl MCH 25.6 L (26-32) pg MCHC 33.4 (32-36) g/dl RDW 14.3 H (11.5-14.0) % Plt Count 217 (150-450) K/mm3 MPV 10.3 H (6-9.5) fl Gran % 60.8 (36.0-66.0) % Eos # (Auto) 0.11 (0-0.5) Absolute Lymphs (auto) 1.62 (1.0-4.6) Absolute Monos (auto) 0.38 (0.0-1.3) Lymphocytes % 30.0 (24.0-44.0) % Monocytes % 7.0 (0.0-12.0) % Eosinophils % 2.0 (0.00-5.0) % Basophils % 0.2 (0.0-0.4) % Absolute Granulocytes 3.28 (1.4-6.9) Basophils # 0.01 (0-0.4) Urine Color YELLOW (YELLOW) Urine Appearance CLOUDY (CLEAR) Urine pH 7.0 (5-6) Ur Specific [place] 1.018 (1.005-1.025) Urine Protein NEGATIVE (Negative) Urine Ketones NEGATIVE (NEGATIVE) Urine Blood NEGATIVE (0-5) Reymundo/ul Urine Nitrite NEGATIVE (NEGATIVE) Urine Bilirubin NEGATIVE (NEGATIVE) Urine Urobilinogen NEGATIVE (0-1) mg/dL Ur Leukocyte Esterase NEGATIVE (NEGATIVE) Urine WBC (Auto) 3-5 (0-5) /HPF Urine RBC (Auto) 0-2 (0-2) /HPF U Epithel Cells (Auto) FEW (FEW) /HPF Urine Bacteria (Auto) MODERATE (NEGATIVE) /HPF Urine Mucus (Auto) SLIGHT (NEGATIVE) /HPF Urine Culture Reflexed NO (NO) Urine Glucose NEGATIVE (NEGATIVE) mg/dL Urine HCG, Qual POSITIVE (Negative) - Progress Progress: improved Counseled pt/family regarding: lab results, diagnosis, need for follow-up - Departure Departure Disposition: Home Clinical Impression: Abdominal cramping affecting , UTI (urinary tract infection) during Condition: Stable Critical Care Time: No Referrals: ANNMARIE ARREGUIN MD [Primary Care Provider] - Instructions: Urinary Tract Infection, Adult (DC), - The Second Month Prescriptions: Nitrofurantoin Macro 100 mg [Macrobid 100MG Capsule] 100 mg PO BID #15 cap
[2019-01-29 17:18] LABS: ALBUMIN 3.8 g/dL (3.5-5.0); ALKALINE PHOSPHATASE 45 U/L (38-126); ANION GAP 11.8 MEQ/L (5-15); BLOOD UREA NITROGEN 9 mg/dL (7-17); CHLORIDE 107 mmol/L (98-107); Calcium 8.9 mg/dL (8.4-10.2); Carbon Dioxide 23 mmol/L (22-30); Creatinine 1 0.56 mg/dL (0.52-1.04); Glucose 68 mg/dL (74-106); Potassium 3.6 mmol/L (3.5-5.1); SGOT/AST 29 U/L (14-36); SGPT/ALT 26 U/L (0-35); SODIUM 138 mmol/L (137-145); Total Protein 7.1 g/dL (6.3-8.2)
[2019-01-29 17:43] LABS: HCG, Quantitative (Inhouse) 17620 mIU/ml
[2019-01-29 17:47] VITALS: BP 126/85; PULSE 68
== END 2019-01-29 18:47 | disposition home or self-care (01) ==
LOC: ED 16:07
DX: O23.41 Unspecified infection of urinary tract in pregnancy, first trimester (principal); Z3A.10 10 weeks gestation of pregnancy; R10.30 Lower abdominal pain, unspecified
CPT/HCPCS: 36000; 36415; 80053; 81001; 84702; 84703; 85025; 96360; 96365; 99284; J0696

== ENCOUNTER 2019-02-05 02:17 | Emergency (ER) | payer OTHER ==
[2019-02-05] MEDS ORDERED: Sodium Chloride 0.9% 1000 ML 1,000 ML IV SCH (03:15)
[2019-02-05] MEDS ORDERED: Sodium Chloride 0.9% 1000 ML 1,000 ML ONE (03:39)
[2019-02-05 03:58] LABS: ALBUMIN 3.7 g/dL (3.5-5.0); ALKALINE PHOSPHATASE 39 U/L (38-126); ANION GAP 11.6 MEQ/L (5-15); BLOOD UREA NITROGEN 7 mg/dL (7-17); CHLORIDE 106 mmol/L (98-107); Calcium 9.1 mg/dL (8.4-10.2); Carbon Dioxide 23 mmol/L (22-30); Creatinine 1 0.58 mg/dL (0.52-1.04); Glucose 99 mg/dL (74-106); Potassium 3.6 mmol/L (3.5-5.1); SGOT/AST 28 U/L (14-36); SGPT/ALT 28 U/L (0-35); SODIUM 137 mmol/L (137-145); Total Protein 6.7 g/dL (6.3-8.2)
[2019-02-05 04:09] LABS: BASOPHIL % 0.2 % (0.0-0.4); Basophil (Absolute #) 0.01 (0-0.4); Eosinophil % 1.2 % (0.00-5.0); Eosinophil (Absolute #) 0.06 (0-0.5); Granulocyte Absolute (ANC) 3.16 (1.4-6.9); Granulocytes % 63.1 % (36.0-66.0); Hematocrit 36.4 % (35-47); Hemoglobin 11.8 gm/dl (12.0-16.0); Lymphocyte (Absolute #) 1.37 (1.0-4.6); Lymphocytes % 27.3 % (24.0-44.0); Mean Cell Volume 76.3 fl (78-100); Mean Corpuscular Hemoglobin 24.7 pg (26-32); Mean Corpuscular Hgb Concent. 32.4 g/dl (32-36); Mean Platelet Volume 10.2 fl (6-9.5); Monocyte (Absolute #) 0.41 (0.0-1.3); Monocytes % 8.2 % (0.0-12.0); Platelet Count 195 K/mm3 (150-450); Red Blood Count 4.77 M/mm3 (4.1-5.4); Red Cell Distribution Width 14.2 % (11.5-14.0)
--- NOTE | 2019-02-05 04:09 | ERPHSYRPT ---
- History of Present Illness Time Seen by Provider: 02/05/19 03:40 Source: patient Exam Limitations: no limitations Patient Subjective Stated Complaint: pt is alert and oriented. pt is ambulatory with a steady gait. pt is an 11 week 4 para 2 woman that began having vaginal bleeding tonight. pt states it was enough red blood to fill up a pad. pt denies any intercourse prior to bleeding. pt did pass clot when urinating for specimen. pt states she's having some mild cramping on her right side. pt denies any difficulty urinating or flank pain. pt states she's feeling lightheading but believes it's from anxiety. Triage Nursing Assessment: see above Physician History: This is a 28-year-old white female 4 para 2 who states she is 11 weeks 4 days she arrives with complaint of vaginal bleeding and lower abdominal cramping symptoms since today. Patient states she passed a large clot patient had been seen on January 29, 2019 secondary to abdominal cramping she was diagnosed with UTI. She was also seen on January 08, 2019 secondary to abdominal cramping patient at that time and had an ultrasound which showed single viable intrauterine 7 weeks 0 days Past medical history includes migraines, hypothyroid, asthma, arrhythmia, ADD, bradycardia, hypotension, gestational diabetes Past surgical history includes cholecystectomy and 2 Timing/Duration: today Severity: moderate Modifying Factors: Improves With: nothing Associated Symptoms: abdominal pain (lower abdominal cramping), other (vaginal bleeding), No nausea, No vomiting, No shortness of breath, No heartburn, No diaphoresis, No cough, No chills, No chest pain, No fever, No loss of appetite, No malaise, No rash, No syncope, No seizure, No weakness Allergies/Adverse Reactions: latex Allergy (Severe, Verified 01/29/19 16:20) STOPPED BREATHING Influenza Virus Vaccines Allergy (Verified 01/29/19 16:20) ketorolac [From Toradol] Allergy (Verified 01/29/19 16:20) levothyroxine sodium [From Synthroid] Allergy (Verified 01/29/19 16:20) methylphenidate [From Ritalin] Allergy (Verified 01/29/19 16:20) prochlorperazine [From Compazine] Allergy (Verified 02/05/19 02:46) aspirin Adverse Reaction (Mild, Verified 01/29/19 16:20) Vomiting medidate Adverse Reaction (Mild, Uncoded 01/08/19 17:47) VOMTIING Home Medications: Vits W-Ca,Fe,FA(<1Mg) [] 1 tab PO DAILY 12/27/18 [History] Hx Tetanus, Diphtheria Vaccination/Date Given: Yes (2014) Hx Influenza Vaccination/Date Given: No Hx Pneumococcal Vaccination/Date Given: No Immunizations Up to Date: Yes - Review of Systems Constitutional: No Fever, No Chills Eyes: No Symptoms Ears, Nose, & Throat: No Symptoms Respiratory: No Cough, No Dyspnea Cardiac: No Chest Pain, No Edema, No Syncope Abdominal/Gastrointestinal: Abdominal Pain (suprapubic cramping), No Nausea, No Vomiting, No Diarrhea, No Constipation, No Hematemesis, No Hematochezia, No Melena, No Dysphagia, No Appetite Changes Genitourinary Symptoms: (patient states she is 11 weeks 4 days estimated gestational age), Vaginal Bleeding, No Dysuria, No Frequency, No Hematuria, No Hesitancy, No Incontinence, No Urgency, No Urinary Retention, No Flank Pain, No Menorrhagia, No Vaginal Discharge, No Vaginal Itching Musculoskeletal: No Back Pain, No Neck Pain Skin: No Rash Neurological: No Dizziness, No Focal Weakness, No Sensory Changes Psychological: No Symptoms Endocrine: No Symptoms All Other Systems: Reviewed and Negative - Past Medical History Pertinent Past Medical History: Yes Neurological History: Migraines ENT History: No Pertinent History Cardiac History: Arrhythmia, Other Respiratory History: Asthma Endocrine Medical History: Hypothyroidism Musculoskeletal History: No Pertinent History GI Medical History: No Pertinent History History: No Pertinent History Psycho-Social History: Attention Deficit Disorder Female Reproductive Disorders: No Pertinent History Other Medical History: Bradycardia, hypotension (usual 90s/60s), Gestational Diabetes - Past Surgical History Past Surgical History: Yes Neuro Surgical History: No Pertinent History Cardiac: No Pertinent History Respiratory: No Pertinent History Gastrointestinal: Cholecystectomy Genitourinary: No Pertinent History Musculoskeletal: No Pertinent History Female Surgical History: Section Other Surgical History: c section x2 - Social History Smoking Status: Former smoker How long have you smoked: 8 years Exposure to second hand smoke: No Drug Use: none Patient Lives Alone: No Significant Family History: cancer (colon/breast), diabetes, other (Gall bladder disease) - Female History Hx Last Menstrual Period: November 19, 2018 Hx Now: Yes - Nursing Vital Signs Nursing Vital Signs: Initial Vital Signs Temperature 98.2 F 02/05/19 02:34 Pulse Rate 87 02/05/19 02:34 Respiratory Rate 16 02/05/19 02:34 Blood Pressure 118/85 02/05/19 02:34 O2 Sat by Pulse Oximetry 97 02/05/19 02:34 Pain Scale Pain Intensity 5 - Physical Exam General Appearance: no apparent distress Eye Exam: PERRL/EOMI, eyes nml inspection Ears, Nose, Throat Exam: normal ENT inspection, TMs normal, pharynx normal, moist mucous membranes Neck Exam: normal inspection, non-tender, supple, full range of motion Respiratory Exam: normal breath sounds, lungs clear, No respiratory distress Cardiovascular Exam: regular rate/rhythm (O reminded a few minutes), normal heart sounds, normal peripheral pulses Gastrointestinal/Abdomen Exam: soft, normal bowel sounds, tenderness ( suprapubic tenderness), No mass Pelvic Exam: normal external exam, vaginal bleeding (small amount of blood in the vagina), No mass, No cervical motion tenderness Back Exam: normal inspection Extremity Exam: normal inspection, normal range of motion, pelvis stable Neurologic Exam: alert, oriented x 3, cooperative, radiation control specialist II-XII nml as tested, normal mood/affect, nml cerebellar function, nml station & gait, sensation nml, No motor deficits Skin Exam: normal color, warm, dry, No rash SpO2 Interpretation: normal (98%) SpO2: 98 - Course Nursing assessment & vital signs reviewed: Yes - Radiology Ultrasound Exam OB Ultrasound: Other (discussed with radiology processing technologist: Impression intrauterine 11 weeks 0 days heart rate 171 bpm. 1 cm subchorionic bleed intrauterine along scar,) Ordered Tests: Active Orders 24 hr Category Date Time Status IV Insertion STAT Care 02/05/19 03:07 Active Pelvic Exam Assist STAT Care 02/05/19 03:07 Active OB TRANSVAGINAL [US] Stat Exams 02/05/19 04:55 Ordered CBC W DIFF Stat Lab 02/05/19 03:41 Completed CMP Stat Lab 02/05/19 03:41 Completed HCG, Quantitative (Inhouse) Stat Lab 02/05/19 03:41 Completed UA W/RFX UR CULTURE Stat Lab 04/07/19 04:09 Completed Wet Prep Stat Lab 02/05/19 03:08 Completed Medication Summary Generic Name Dose Route Start Last Admin Trade Name Alis PRN Reason Stop Dose Admin Sodium Chloride 1,000 mls @ 100 mls/hr 02/05/19 03:15 02/05/19 03:41 Sodium Chloride 0.9% 1000 Ml IV 03/07/19 03:14 100 mls/hr .Q10H JAH Administration Lab/Rad Data: Laboratory Result Diagrams 02/05/19 03:41 02/05/19 03:41 Laboratory Results 02/05/19 02/05/19 02/05/19 Range/Units 04:09 03:41 03:41 WBC (4.0-10.5) K/mm3 RBC (4.1-5.4) M/mm3 Hgb (12.0-16.0) gm/dl Hct (35-47) % MCV (78-100) fl MCH (26-32) pg MCHC (32-36) g/dl RDW (11.5-14.0) % Plt Count (150-450) K/mm3 MPV (6-9.5) fl Gran % (36.0-66.0) % Eos # (Auto) (0-0.5) Absolute Lymphs (auto) (1.0-4.6) Absolute Monos (auto) (0.0-1.3) Lymphocytes % (24.0-44.0) % Monocytes % (0.0-12.0) % Eosinophils % (0.00-5.0) % Basophils % (0.0-0.4) % Absolute Granulocytes (1.4-6.9) Basophils # (0-0.4) Sodium 137 (137-145) mmol/L Potassium 3.6 (3.5-5.1) mmol/L Chloride 106 (98-107) mmol/L Carbon Dioxide 23 (22-30) mmol/L Anion Gap 11.6 (5-15) MEQ/L BUN 7 (7-17) mg/dL Creatinine 0.58 (0.52-1.04) mg/dL Estimated GFR > 60.0 ML/MIN Glucose 99 (74-106) mg/dL Calcium 9.1 (8.4-10.2) mg/dL Total Bilirubin 0.30 (0.2-1.3) mg/dL AST 28 (14-36) U/L ALT 28 (0-35) U/L Alkaline Phosphatase 39 (38-126) U/L Serum Total Protein 6.7 (6.3-8.2) g/dL Albumin 3.7 (3.5-5.0) g/dL Beta HCG, Quant 67053 mIU/ml Urine Color YELLOW (YELLOW) Urine Appearance SLIGHTLY CLOUDY (CLEAR) Urine pH 7.0 (5-6) Ur Specific [place] 1.015 (1.005-1.025) Urine Protein NEGATIVE (Negative) Urine Ketones NEGATIVE (NEGATIVE) Urine Blood LARGE (0-5) Reymundo/ul Urine Nitrite NEGATIVE (NEGATIVE) Urine Bilirubin NEGATIVE (NEGATIVE) Urine Urobilinogen NEGATIVE (0-1) mg/dL Ur Leukocyte Esterase NEGATIVE (NEGATIVE) Urine WBC (Auto) 3-5 (0-5) /HPF Urine RBC (Auto) >101 (0-2) /HPF U Epithel Cells (Auto) RARE (FEW) /HPF Urine Bacteria (Auto) RARE (NEGATIVE) /HPF Urine Mucus (Auto) SLIGHT (NEGATIVE) /HPF Urine Culture Reflexed NO (NO) Urine Glucose NEGATIVE (NEGATIVE) mg/dL WBC (Wet Prep) RBC (Wet Prep) Epi Cells (Wet Prep) Bacteria (Wet Prep) Clue Cells (Wet Prep) Trichomonas (Wet Prep) Budding Yeast (Wet Prp) 02/05/19 02/05/19 Range/Units 03:41 03:08 WBC 5.0 (4.0-10.5) K/mm3 RBC 4.77 (4.1-5.4) M/mm3 Hgb 11.8 L (12.0-16.0) gm/dl Hct 36.4 (35-47) % MCV 76.3 L (78-100) fl MCH 24.7 L (26-32) pg MCHC 32.4 (32-36) g/dl RDW 14.2 H (11.5-14.0) % Plt Count 195 (150-450) K/mm3 MPV 10.2 H (6-9.5) fl Gran % 63.1 (36.0-66.0) % Eos # (Auto) 0.06 (0-0.5) Absolute Lymphs (auto) 1.37 (1.0-4.6) Absolute Monos (auto) 0.41 (0.0-1.3) Lymphocytes % 27.3 (24.0-44.0) % Monocytes % 8.2 (0.0-12.0) % Eosinophils % 1.2 (0.00-5.0) % Basophils % 0.2 (0.0-0.4) % Absolute Granulocytes 3.16 (1.4-6.9) Basophils # 0.01 (0-0.4) Sodium (137-145) mmol/L Potassium (3.5-5.1) mmol/L Chloride (98-107) mmol/L Carbon Dioxide (22-30) mmol/L Anion Gap (5-15) MEQ/L BUN (7-17) mg/dL Creatinine (0.52-1.04) mg/dL Estimated GFR ML/MIN Glucose (74-106) mg/dL Calcium (8.4-10.2) mg/dL Total Bilirubin (0.2-1.3) mg/dL AST (14-36) U/L ALT (0-35) U/L Alkaline Phosphatase (38-126) U/L Serum Total Protein (6.3-8.2) g/dL Albumin (3.5-5.0) g/dL Beta HCG, Quant mIU/ml Urine Color (YELLOW) Urine Appearance (CLEAR) Urine pH (5-6) Ur Specific [place] (1.005-1.025) Urine Protein (Negative) Urine Ketones (NEGATIVE) Urine Blood (0-5) Reymundo/ul Urine Nitrite (NEGATIVE) Urine Bilirubin (NEGATIVE) Urine Urobilinogen (0-1) mg/dL Ur Leukocyte Esterase (NEGATIVE) Urine WBC (Auto) (0-5) /HPF Urine RBC (Auto) (0-2) /HPF U Epithel Cells (Auto) (FEW) /HPF Urine Bacteria (Auto) (NEGATIVE) /HPF Urine Mucus (Auto) (NEGATIVE) /HPF Urine Culture Reflexed (NO) Urine Glucose (NEGATIVE) mg/dL WBC (Wet Prep) Few RBC (Wet Prep) Moderate Epi Cells (Wet Prep) Few Bacteria (Wet Prep) Few Clue Cells (Wet Prep) None Seen Trichomonas (Wet Prep) None Seen Budding Yeast (Wet Prp) None Seen - Progress Progress: improved Progress Note: 02/05/19 04:45 28-year-old white female arrives with complaint of vaginal bleeding symptoms since ton. Patient had been seen on the for abdominal cramping. On physical examination patient with small amount of blood in the vaginal vault cervix is closed there is no adnexal or uterine tenderness. Quantitative hCG is 20,601. I've asked labs for the patient's blood type apparently she had one done on 19 January which is A positive. 02/05/19 06:31 Patient's ultrasound shows an intrauterine 11 weeks 0 days patient does have a 1 cm subchorionic bleed which is along the previous scar from C- section heart rate 171. Patient in no acute distress at this time will discharge patient - Departure Departure Disposition: Home Clinical Impression: Vaginal bleeding Qualifiers: Weeks of gestation: 11 weeks Qualified Code(s): Z3A.11 - 11 weeks gestation of Condition: Fair Critical Care Time: No Referrals: ANNMARIE ARREGUIN MD [Primary Care Provider] - Instructions: Bleeding With (DC) Additional Instructions: Return home Plenty of fluids Nothing in your vagina. Follow-up with your [facility] physician
[2019-02-05 04:16] LABS: Appearance SLIGHTLY CLOUDY (CLEAR); Bacteria RARE /HPF (NEGATIVE); Bilirubin NEGATIVE (NEGATIVE); Blood LARGE Ery/ul (0-5); Epithelial Cells RARE /HPF (FEW); Glucose NEGATIVE (NEGATIVE); Ketones NEGATIVE (NEGATIVE); Leukocyte Esterase NEGATIVE (NEGATIVE); Mucus SLIGHT /HPF (NEGATIVE); Nitrite NEGATIVE (NEGATIVE); Protein,Urine Dip NEGATIVE (Negative); Specific Gravity 1.015 (1.005-1.025); Urobilinogen NEGATIVE mg/dL (0-1)
[2019-02-05 04:17] LABS: RBC >101 /HPF (0-2)
[2019-02-05 04:57] LABS: Bacteria Few; Clue Cells None Seen; Red Blood Cells Moderate; Trichomonas None Seen; White Blood Cells Few; Yeast None Seen
[2019-02-05 06:09] VITALS: BP 107/61; PULSE 81
[2019-02-05 06:33] VITALS: O2SAT 98
[2019-02-05 06:36] LABS: CHLAMYDIA DNA NEGATIVE; N GONORRHOEAE DNA NEGATIVE
--- NOTE | 2019-02-05 10:25 | XRAY ---
Indication: Bleeding. Two-dimensional transvaginal early OB ultrasound performed. Comparison: January 08, 2019. Again there is a single viable intrauterine . Mean crown-rump length is 4.00 cm corresponding to 10 weeks 6 days. heart rate 171 BPM. New subchorionic fluid collection inferiorly measuring approximately 1 x 2 cm concerning for hemorrhage. Impression: Again single viable intrauterine measuring 10 weeks 6 days. Normal progression of . New subchorionic hemorrhage. Comment: Preliminary report was given.
== END 2019-02-05 06:42 | disposition home or self-care (01) ==
LOC: ED 02:17
DX: O46.91 Antepartum hemorrhage, unspecified, first trimester (principal); O20.9 Hemorrhage in early pregnancy, unspecified; Z3A.11 11 weeks gestation of pregnancy
CPT/HCPCS: 36000; 36415; 76817; 80053; 81001; 84702; 85025; 87210; 87490; 87590; 96360; 96361; 99284

== ENCOUNTER 2019-02-21 13:20 | Observation (INO) | payer OTHER ==
[2019-02-21] MEDS ORDERED: Sodium Chloride 0.9% 1000 ML 1,000 ML IV STA (13:45)
--- NOTE | 2019-02-21 13:52 | ERPHSYRPT ---
- History of Present Illness Time Seen by Provider: 02/21/19 13:47 Historian: patient Exam Limitations: no limitations Physician History: 28-year-old white female with history of migraines, hypothyroid, arrhythmia, asthma, ADD, bradycardia, gestational diabetes. Who is 4 para 2 with the approximately 13 weeks. Patient arrives with complaint of vomiting several times frequent diarrhea, right upper quadrant abdominal pain symptoms since 2 days ago. Patient states she ate cottage cheese 2 days ago she had been seen by her family doctor. Decided to take her off of milk. She states she continues to have vomiting and diarrhea she states she has multiple loose stools. Past medical history includes migraines, hypothyroidism, arrhythmia, asthma, ADD , bradycardia, hypotension, gestational diabetes. Past surgical history includes cholecystectomy, C-sections 2 Timing/Duration: day(s) (2 days) Activities at Onset: none Quality: cramping Abdominal Pain Onset Location: RUQ Pain Radiation: no radiation Severity of Pain-Max: moderate Severity of Pain-Current: moderate Modifying Factors: Improves With: vomiting, other (pain with eating) Associated Symptoms: diarrhea, nausea, vomiting, No back, No chest pain, No diaphoresis, No fever/chills, No fatigue, No headache, No heartburn, No loss of appetite, No neck pain, No rash, No shortness of breath, No syncope Previous symptoms: no prior history Allergies/Adverse Reactions: latex Allergy (Severe, Verified 02/21/19 14:05) STOPPED BREATHING Influenza Virus Vaccines Allergy (Verified 02/21/19 14:05) ketorolac [From Toradol] Allergy (Verified 02/21/19 14:05) levothyroxine sodium [From Synthroid] Allergy (Verified 02/21/19 14:05) methylphenidate [From Ritalin] Allergy (Verified 02/21/19 14:05) prochlorperazine [From Compazine] Allergy (Verified 02/21/19 14:05) aspirin Adverse Reaction (Mild, Verified 02/21/19 14:05) Vomiting medidate Adverse Reaction (Mild, Uncoded 01/08/19 17:47) VOMTIING Home Medications: Vits W-Ca,Fe,FA(<1Mg) [] 1 tab PO DAILY 12/27/18 [History] Hx Tetanus, Diphtheria Vaccination/Date Given: Yes (2014) Hx Influenza Vaccination/Date Given: No Hx Pneumococcal Vaccination/Date Given: No - Review of Systems Constitutional: No Fever, No Chills Eyes: No Symptoms Ears, Nose, & Throat: No Symptoms Respiratory: No Cough, No Dyspnea Cardiac: No Chest Pain, No Edema, No Syncope Abdominal/Gastrointestinal: Abdominal Pain (right upper quadrant abdominal pain worse after eating), Nausea, Vomiting, Diarrhea, No Constipation, No Hematemesis , No Hematochezia, No Melena, No Dysphagia, No Appetite Changes Genitourinary Symptoms: (patient approximately 13 weeks ), No Dysuria Musculoskeletal: No Back Pain, No Neck Pain Skin: No Rash Neurological: No Dizziness, No Focal Weakness, No Sensory Changes Psychological: No Symptoms Endocrine: No Symptoms All Other Systems: Reviewed and Negative - Past Medical History Pertinent Past Medical History: Yes Neurological History: Migraines ENT History: No Pertinent History Cardiac History: Arrhythmia, Other Respiratory History: Asthma Endocrine Medical History: Hypothyroidism Musculoskeletal History: No Pertinent History GI Medical History: No Pertinent History History: No Pertinent History Psycho-Social History: Attention Deficit Disorder Female Reproductive Disorders: No Pertinent History Other Medical History: Bradycardia, hypotension (usual 90s/60s), Gestational Diabetes - Past Surgical History Past Surgical History: Yes Neuro Surgical History: No Pertinent History Cardiac: No Pertinent History Respiratory: No Pertinent History Gastrointestinal: Cholecystectomy Genitourinary: No Pertinent History Musculoskeletal: No Pertinent History Female Surgical History: Section Other Surgical History: c section x2 - Social History Smoking Status: Former smoker How long have you smoked: 8 years Exposure to second hand smoke: No Drug Use: none Patient Lives Alone: No Significant Family History: cancer (colon/breast), diabetes, other (Gall bladder disease) - Nursing Vital Signs Nursing Vital Signs: Initial Vital Signs Temperature 98.4 F 02/21/19 13:26 Pulse Rate 83 02/21/19 13:26 Respiratory Rate 16 02/21/19 13:26 Blood Pressure 137/90 02/21/19 13:26 O2 Sat by Pulse Oximetry 95 02/21/19 13:26 Pain Scale Pain Intensity 7 - Physical Exam General Appearance: mild distress, alert Eye Exam: PERRL/EOMI, eyes nml inspection Ears, Nose, Throat Exam: normal ENT inspection, pharynx normal, moist mucous membranes Neck Exam: normal inspection, non-tender, supple, full range of motion Respiratory Exam: normal breath sounds, lungs clear, No respiratory distress Cardiovascular Exam: regular rate/rhythm, normal heart sounds, capillary refill <2 sec Gastrointestinal/Abdomen Exam: soft, normal bowel sounds, tenderness (Right upper quadrant tenderness), No distention, No mass, No guarding, No ecchymosis, No pulsatile mass, No rebound, No hernia, No hepatomegaly, No organomegaly, No splenomegaly, No bruit Back Exam: normal inspection, normal range of motion, No CVA tenderness, No vertebral tenderness Extremity Exam: normal inspection, normal range of motion, pelvis stable Neurologic Exam: alert, oriented x 3, cooperative, 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 as tested, normal mood/affect, nml cerebellar function, sensation nml, No motor deficits Skin Exam: normal color, warm, dry SpO2 Interpretation: normal - Course Nursing assessment & vital signs reviewed: Yes - Radiology Ultrasound Exam Other Ultrasound: discussed w/radiologist (ultrasound right upper quadrant abdomen: Impression: Cholecystectomy and an otherwise negative right upper quadrant sonogram.) OB Ultrasound: discussed w/radiologist (limited OB ultrasound: heart rate 1 67 bpm) Ordered Tests: Active Orders 24 hr Category Date Time Status Heart Tones-ED STAT Care 02/21/19 13:52 Active IV Insertion STAT Care 02/21/19 13:45 Active LIVER OR SPLEEN [US] Stat Exams 02/21/19 16:19 Completed OB LIMITED [US] Stat Exams 02/21/19 16:20 Completed AMYLASE Stat Lab 02/21/19 13:50 Completed CBC W DIFF Stat Lab 02/21/19 13:50 Completed CMP Stat Lab 02/21/19 13:50 Completed HCG, Quantitative (Inhouse) Stat Lab 02/21/19 Completed HCG,QUALITATIVE URINE Stat Lab 02/21/19 14:08 Completed LIPASE Stat Lab 02/21/19 13:50 Completed UA W/RFX UR CULTURE Stat Lab 02/21/19 14:08 Completed Transfer Order Routine Transfer 02/21/19 Ordered Medication Summary Generic Name Dose Route Start Last Admin Trade Name Freq PRN Reason Stop Dose Admin Sodium Chloride 1,000 mls @ 100 mls/hr 02/21/19 15:15 02/21/19 15:15 Sodium Chloride 0.9% 1000 Ml IV 03/23/19 15:14 100 mls/hr .Q10H JAH Administration Discontinued Medications Generic Name Dose Route Start Last Admin Trade Name Alis PRN Reason Stop Dose Admin Sodium Chloride 1,000 mls @ 999 mls/hr 02/21/19 13:45 02/21/19 15:12 Sodium Chloride 0.9% 1000 Ml IV 02/21/19 14:45 Infused .Q1H1M STA Infusion Sodium Chloride Confirm 02/21/19 13:55 Sodium Chloride 0.9% 1000 Ml Administered 02/21/19 13:56 Dose 1,000 mls @ ud .ROUTE .STK-MED ONE Morphine Sulfate 4 mg 02/21/19 15:04 02/21/19 16:25 Morphine Sulfate 4 Mg Inj IV 02/21/19 15:05 4 mg STAT ONE Administration Morphine Sulfate Confirm 02/21/19 16:23 Morphine Sulfate 4 Mg Inj Administered 02/21/19 16:24 Dose 4 mg .ROUTE .STK-MED ONE Ondansetron HCl 4 mg 02/21/19 15:04 02/21/19 15:07 Zofran 4 Mg/2 Ml Vial IV 02/21/19 15:05 4 mg STAT ONE Administration Ondansetron HCl Confirm 02/21/19 15:06 Zofran 4 Mg/2 Ml Vial Administered 02/21/19 15:07 Dose 4 mg .ROUTE .STK-MED ONE Potassium Chloride 40 meq 02/21/19 15:12 02/21/19 15:15 Klor Con 10 Meq PO 02/21/19 15:13 40 meq STAT ONE Administration Potassium Chloride Confirm 02/21/19 15:13 Klor Con 10 Meq Administered 02/21/19 15:14 Dose 40 meq PO .STK-MED ONE Lab/Rad Data: Laboratory Result Diagrams 02/21/19 13:50 02/21/19 13:50 Laboratory Results 02/21/19 02/21/19 02/21/19 Range/Units Unknown 14:08 14:08 WBC (4.0-10.5) K/mm3 RBC (4.1-5.4) M/mm3 Hgb (12.0-16.0) gm/dl Hct (35-47) % MCV (78-100) fl MCH (26-32) pg MCHC (32-36) g/dl RDW (11.5-14.0) % Plt Count (150-450) K/mm3 MPV (6-9.5) fl Gran % (36.0-66.0) % Eos # (Auto) (0-0.5) Absolute Lymphs (auto) (1.0-4.6) Absolute Monos (auto) (0.0-1.3) Lymphocytes % (24.0-44.0) % Monocytes % (0.0-12.0) % Eosinophils % (0.00-5.0) % Basophils % (0.0-0.4) % Absolute Granulocytes (1.4-6.9) Basophils # (0-0.4) Sodium (137-145) mmol/L Potassium (3.5-5.1) mmol/L Chloride (98-107) mmol/L Carbon Dioxide (22-30) mmol/L Anion Gap (5-15) MEQ/L BUN (7-17) mg/dL Creatinine (0.52-1.04) mg/dL Estimated GFR ML/MIN Glucose (74-106) mg/dL Calcium (8.4-10.2) mg/dL Total Bilirubin (0.2-1.3) mg/dL AST (14-36) U/L ALT (0-35) U/L Alkaline Phosphatase (38-126) U/L Serum Total Protein (6.3-8.2) g/dL Albumin (3.5-5.0) g/dL Amylase (30-110) U/L Lipase (23-300) U/L Beta HCG, Quant 78167 mIU/ml Urine Color YELLOW (YELLOW) Urine Appearance CLEAR (CLEAR) Urine pH 7.0 (5-6) Ur Specific Jber 1.016 (1.005-1.025) Urine Protein NEGATIVE (Negative) Urine Ketones NEGATIVE (NEGATIVE) Urine Blood NEGATIVE (0-5) Reymundo/ul Urine Nitrite NEGATIVE (NEGATIVE) Urine Bilirubin NEGATIVE (NEGATIVE) Urine Urobilinogen NEGATIVE (0-1) mg/dL Ur Leukocyte Esterase NEGATIVE (NEGATIVE) Urine WBC (Auto) NONE (0-5) /HPF Urine RBC (Auto) NONE (0-2) /HPF U Epithel Cells (Auto) NONE (FEW) /HPF Urine Bacteria (Auto) NONE (NEGATIVE) /HPF Urine Mucus (Auto) SLIGHT (NEGATIVE) /HPF Urine Culture Reflexed NO (NO) Urine Glucose NEGATIVE (NEGATIVE) mg/dL Urine HCG, Qual POSITIVE (Negative) 02/21/19 02/21/19 Range/Units 13:50 13:50 WBC 4.6 (4.0-10.5) K/mm3 RBC 4.72 (4.1-5.4) M/mm3 Hgb 11.7 L (12.0-16.0) gm/dl Hct 35.8 (35-47) % MCV 75.8 L (78-100) fl MCH 24.7 L (26-32) pg MCHC 32.7 (32-36) g/dl RDW 14.0 (11.5-14.0) % Plt Count 176 (150-450) K/mm3 MPV 10.6 H (6-9.5) fl Gran % 65.1 (36.0-66.0) % Eos # (Auto) 0.07 (0-0.5) Absolute Lymphs (auto) 1.21 (1.0-4.6) Absolute Monos (auto) 0.33 (0.0-1.3) Lymphocytes % 26.1 (24.0-44.0) % Monocytes % 7.1 (0.0-12.0) % Eosinophils % 1.5 (0.00-5.0) % Basophils % 0.2 (0.0-0.4) % Absolute Granulocytes 3.02 (1.4-6.9) Basophils # 0.01 (0-0.4) Sodium 139 (137-145) mmol/L Potassium 3.1 L (3.5-5.1) mmol/L Chloride 107 (98-107) mmol/L Carbon Dioxide 22 (22-30) mmol/L Anion Gap 12.9 (5-15) MEQ/L BUN 5 L (7-17) mg/dL Creatinine 0.51 L (0.52-1.04) mg/dL Estimated GFR > 60.0 ML/MIN Glucose 119 H (74-106) mg/dL Calcium 9.2 (8.4-10.2) mg/dL Total Bilirubin 0.30 (0.2-1.3) mg/dL AST 18 (14-36) U/L ALT 23 (0-35) U/L Alkaline Phosphatase 49 (38-126) U/L Serum Total Protein 6.5 (6.3-8.2) g/dL Albumin 3.5 (3.5-5.0) g/dL Amylase 43 (30-110) U/L Lipase 75 (23-300) U/L Beta HCG, Quant mIU/ml Urine Color (YELLOW) Urine Appearance (CLEAR) Urine pH (5-6) Ur Specific Jber (1.005-1.025) Urine Protein (Negative) Urine Ketones (NEGATIVE) Urine Blood (0-5) Reymundo/ul Urine Nitrite (NEGATIVE) Urine Bilirubin (NEGATIVE) Urine Urobilinogen (0-1) mg/dL Ur Leukocyte Esterase (NEGATIVE) Urine WBC (Auto) (0-5) /HPF Urine RBC (Auto) (0-2) /HPF U Epithel Cells (Auto) (FEW) /HPF Urine Bacteria (Auto) (NEGATIVE) /HPF Urine Mucus (Auto) (NEGATIVE) /HPF Urine Culture Reflexed (NO) Urine Glucose (NEGATIVE) mg/dL Urine HCG, Qual (Negative) - Progress Progress: improved Progress Note: 02/21/19 13:51 20-year-old white female with history of migraines, hypothyroidism, arrhythmia, asthma, ADD, bradycardia, hypotension, gestational diabetes Who has had a cholecystectomy in the past arrives with complaint of right upper quadrant abdominal pain, several episodes of vomiting, multiple episodes of diarrhea symptoms since 2 days ago. Patient states that the symptoms began after eating cottage cheese she was seen by her family doctor and told to stop drinking milk. She states she continues to have the above noted symptoms. Patient is she is approximately 13 weeks she was seen here on February 05 noted to have IUP 11 weeks 0 days with subchorionic bleed on that day. 02/21/19 15:53 Patient was complaining of right upper quadrant abdominal pain diarrhea and vomiting. She had 2 episodes of diarrhea since she's been here her potassium level was 3.1. Patient apparently did not have a ride home she was given Zofran for nausea. Patient was not given morphine for pain secondary no ride home. Patient had a bout of diarrhea she stated she had some cramping with this and was concerned that the diarrhea might harm her baby. Patient has had a recent ultrasound approximately 2 weeks ago. I've discussed the patient's case with Dr. Gonzalez who is clinical education manager for Dr. Arreguin. Will go ahead and order ultrasound of the patient's liver in view of her right upper quadrant abdominal pain. Will also order a limited OB ultrasound for the heart tones. Will consider placing patient on observation for IV fluids. patient has been given potassium chloride 40 mEq orally in view of a potassium of 3.1. - Departure Departure Disposition: Observation Clinical Impression: Hypokalemia Qualifiers: Weeks of gestation: 13 weeks Qualified Code(s): Z3A.13 - 13 weeks gestation of Abdominal pain Qualifiers: Abdominal location: upper abdomen, unspecified Qualified Code(s): R10.10 - Upper abdominal pain, unspecified Vomiting Qualifiers: Vomiting type: unspecified Vomiting Intractability: non-intractable Nausea presence: with nausea Qualified Code(s): R11.2 - Nausea with vomiting, unspecified Diarrhea Qualifiers: Diarrhea type: unspecified type Qualified Code(s): R19.7 - Diarrhea, unspecified Condition: Fair Critical Care Time: No Referrals: ANNMARIE ARREGUIN MD [Primary Care Provider] -
[2019-02-21] MEDS ORDERED: Sodium Chloride 0.9% 1000 ML 1,000 ML ONE ×2 (13:55→15:13)
[2019-02-21 14:05] LABS: BASOPHIL % 0.2 % (0.0-0.4); Basophil (Absolute #) 0.01 (0-0.4); Eosinophil % 1.5 % (0.00-5.0); Eosinophil (Absolute #) 0.07 (0-0.5); Granulocyte Absolute (ANC) 3.02 (1.4-6.9); Granulocytes % 65.1 % (36.0-66.0); Hematocrit 35.8 % (35-47); Hemoglobin 11.7 gm/dl (12.0-16.0); Lymphocyte (Absolute #) 1.21 (1.0-4.6); Lymphocytes % 26.1 % (24.0-44.0); Mean Cell Volume 75.8 fl (78-100); Mean Corpuscular Hgb Concent. 32.7 g/dl (32-36); Mean Platelet Volume 10.6 fl (6-9.5); Monocyte (Absolute #) 0.33 (0.0-1.3); Monocytes % 7.1 % (0.0-12.0); Platelet Count 176 K/mm3 (150-450); Red Blood Count 4.72 M/mm3 (4.1-5.4); White Blood Count 4.6 K/mm3 (4.0-10.5)
[2019-02-21 14:11] LABS: Mean Corpuscular Hemoglobin 24.7 pg (26-32)
[2019-02-21 14:17] LABS: ALBUMIN 3.5 g/dL (3.5-5.0); ALKALINE PHOSPHATASE 49 U/L (38-126); AMYLASE 43 U/L (30-110); ANION GAP 12.9 MEQ/L (5-15); BLOOD UREA NITROGEN 5 mg/dL (7-17); CHLORIDE 107 mmol/L (98-107); Calcium 9.2 mg/dL (8.4-10.2); Carbon Dioxide 22 mmol/L (22-30); Creatinine 1 0.51 mg/dL (0.52-1.04); Glucose 119 mg/dL (74-106); LIPASE 75 U/L (23-300); Potassium 3.1 mmol/L (3.5-5.1); SGOT/AST 18 U/L (14-36); SGPT/ALT 23 U/L (0-35); SODIUM 139 mmol/L (137-145); Total Protein 6.5 g/dL (6.3-8.2)
[2019-02-21 14:27] LABS: Appearance CLEAR (CLEAR); Bilirubin NEGATIVE (NEGATIVE); Blood NEGATIVE Ery/ul (0-5); Glucose NEGATIVE (NEGATIVE); Ketones NEGATIVE (NEGATIVE); Leukocyte Esterase NEGATIVE (NEGATIVE); Mucus SLIGHT /HPF (NEGATIVE); Nitrite NEGATIVE (NEGATIVE); Protein,Urine Dip NEGATIVE (Negative); Specific Gravity 1.016 (1.005-1.025); Urobilinogen NEGATIVE mg/dL (0-1)
[2019-02-21] MEDS ORDERED: Zofran 4 MG/2 ML VIAL IV ONE (15:04)
[2019-02-21] MEDS ORDERED: MORPHINE SULFATE 4 MG INJ IV ONE (15:04)
[2019-02-21] MEDS ORDERED: Zofran 4 MG/2 ML VIAL ONE (15:06)
[2019-02-21] MEDS ORDERED: Klor Con 10 MEQ PO ONE ×2 (15:12→15:13)
[2019-02-21] MEDS ORDERED: Sodium Chloride 0.9% 1000 ML 1,000 ML IV SCH (15:15)
[2019-02-21] MEDS ORDERED: MORPHINE SULFATE 4 MG INJ ONE (16:23)
--- NOTE | 2019-02-21 16:47 | XRAY ---
Indication: Abdomen pain. Nausea, vomiting, and diarrhea. Cholecystectomy. 2-dimensional right upper quadrant abdominal sonogram performed. Comparison: None Gallbladder surgically absent. Common bile duct measures 4.9 mm. No intrahepatic biliary distention. Remaining visualized liver, pancreas, and right kidney appear sonographically unremarkable. Right kidney measures 11.5 cm in length. No ascites. Impression: Cholecystectomy in a otherwise negative right upper quadrant sonogram.
--- NOTE | 2019-02-21 16:50 | XRAY ---
Indication: Evaluate heart rate. Limited OB ultrasound performed to evaluate heart rate. heart rate is 167 BPM.
[2019-02-21] MEDS: MORPHINE SULFATE 10 MG/ML IV PRN (21:24)
[2019-02-22] MEDS: MORPHINE SULFATE 10 MG/ML IV PRN ×2 (03:16→20:19)
[2019-02-22] MEDS: Phenergan 25 MG INJ IV PRN ×3 (03:27→17:45)
[2019-02-22 05:56] LABS: BASOPHIL % 0.3 % (0.0-0.4); Basophil (Absolute #) 0.01 (0-0.4); Eosinophil % 1.8 % (0.00-5.0); Eosinophil (Absolute #) 0.07 (0-0.5); Granulocyte Absolute (ANC) 2.19 (1.4-6.9); Granulocytes % 54.9 % (36.0-66.0); Hematocrit 34.8 % (35-47); Hemoglobin 11.3 gm/dl (12.0-16.0); Lymphocyte (Absolute #) 1.48 (1.0-4.6); Lymphocytes % 37.2 % (24.0-44.0); Mean Cell Volume 76.7 fl (78-100); Mean Corpuscular Hgb Concent. 32.5 g/dl (32-36); Mean Platelet Volume 10.5 fl (6-9.5); Monocyte (Absolute #) 0.23 (0.0-1.3); Monocytes % 5.8 % (0.0-12.0); Platelet Count 166 K/mm3 (150-450); Red Blood Count 4.54 M/mm3 (4.1-5.4); Red Cell Distribution Width 13.9 % (11.5-14.0)
[2019-02-22 06:00] LABS: Mean Corpuscular Hemoglobin 24.8 pg (26-32)
[2019-02-22 06:18] LABS: ALBUMIN 2.9 g/dL (3.5-5.0); ALKALINE PHOSPHATASE 46 U/L (38-126); ANION GAP 12.2 MEQ/L (5-15); BLOOD UREA NITROGEN 3 mg/dL (7-17); CHLORIDE 111 mmol/L (98-107); Calcium 8.4 mg/dL (8.4-10.2); Carbon Dioxide 19 mmol/L (22-30); Creatinine 1 0.44 mg/dL (0.52-1.04); Glucose 84 mg/dL (74-106); Potassium 3.4 mmol/L (3.5-5.1); SGOT/AST 18 U/L (14-36); SGPT/ALT 20 U/L (0-35); SODIUM 139 mmol/L (137-145); Total Protein 5.9 g/dL (6.3-8.2)
--- NOTE | 2019-02-22 09:01 | PCM.HP ---
History of Present Illness - Chief Complaint Chief Complaint: abdominal pain History of Present Illness: is a 28 year old female at 13 weeks gestation arrived to ER complaining of nausea, vomiting and diarrhea with associated right upper quadrant pain, she continues to have diarrhea on the floor and complains of pain , she can only tolerate clears when she takes nausea medication. - Review of Systems Constitutional: No Fever, No Chills Respiratory: No Cough, No Short Of Breath Cardiac: No Chest Pain, No Edema, No Syncope Abdominal/Gastrointestinal: Abdominal Pain, Nausea, Vomiting, Diarrhea Genitourinary Symptoms: No Dysuria Skin: No Rash All Other Systems: Reviewed and Negative Medications & Allergies Home Medications: Home Medication List Vits W-Ca,Fe,FA(<1Mg) [] 1 tab PO HS 12/27/18 [History Confirmed 02/21/19] Allergies/Adverse Reactions: Allergies Allergy/AdvReac Type Severity Reaction Status Date / Time latex Allergy Severe STOPPED Verified 02/21/19 14:05 BREATHING Influenza Virus Vaccines Allergy Verified 02/21/19 14:05 ketorolac [From Toradol] Allergy Verified 02/21/19 14:05 levothyroxine sodium Allergy Verified 02/21/19 14:05 [From Synthroid] methylphenidate Allergy Verified 02/21/19 14:05 [From Ritalin] prochlorperazine Allergy Verified 02/21/19 14:05 [From Compazine] aspirin AdvReac Mild Vomiting Verified 02/21/19 14:05 medidate AdvReac Mild VOMTIING Uncoded 01/08/19 17:47 - Past Medical History Past Medical History: Yes Neurological History: Migraines ENT History: No Pertinent History Cardiac History: Arrhythmia, Other Respiratory History: Asthma Endocrine Medical History: Hypothyroidism Musculoskelatal History: No Pertinent History GI Medical History: No Pertinent History History: No Pertinent History Pyscho-Social History: Attention Deficit Disorder Reproductive Disorders: No Pertinent History Comment: Bradycardia, hypotension (usual 90s/60s), Gestational Diabetes - Female History Hx Last Menstrual Period: 11/19/18 Are you now?: Yes (13 weeks) - Past Surgical History Past Surgical History: Yes Neuro Surgical History: No Pertinent History Cardiac History: No Pertinent History Respiratory Surgery: No Pertinent History GI Surgical History: Cholecystectomy Genitourinary Surgical Hx: No Pertinent History Musculskeletal Surgical Hx: No Pertinent History Female Surgical History: Section Other Surgical History: c section x2 - Social History Smoking Status: Former smoker How long have you smoked: 8 years Exposure to second hand smoke: No Alcohol: None Drug Use: none Significant Family History: cancer (colon/breast), diabetes, other (Gall bladder disease) - Physical Exam Vital Signs: Vital Signs - 24 hr Temp Pulse Resp BP Pulse Ox 02/22/19 07:29 98.8 F 70 16 117/64 97 02/22/19 07:24 97 02/22/19 03:51 98.0 F 66 19 109/55 95 02/21/19 23:54 98.7 F 72 18 112/52 96 02/21/19 20:00 18 02/21/19 19:59 97.7 F 75 16 115/74 99 02/21/19 19:27 99 02/21/19 17:55 75 16 99 02/21/19 17:43 97.7 F 75 18 115/74 99 02/21/19 17:38 97.7 F 75 18 115/74 99 02/21/19 16:50 72 99 02/21/19 16:40 80 18 122/64 99 02/21/19 15:42 97.8 F 68 16 142/80 98 02/21/19 14:46 69 16 113/62 100 02/21/19 13:26 98.4 F 83 16 137/90 95 General Appearance: no apparent distress, alert Neurologic Exam: alert, oriented x 3, cooperative, normal mood/affect, nml cerebellar function, nml station & gait, sensation nml, No motor deficits Eye Exam: PERRL/EOMI, eyes nml inspection Respiratory Exam: normal breath sounds, lungs clear, No respiratory distress Cardiovascular Exam: regular rate/rhythm, normal heart sounds, normal peripheral pulses Gastrointestinal/Abdomen Exam: soft, tenderness (minimal, right upper quad. abdomen obese and soft, no guarding or rebound present), No guarding, No rebound Extremity Exam: normal inspection, normal range of motion, pelvis stable Skin Exam: normal color, warm, dry, No rash Results - Labs Lab/Micro Results: Lab Results-Last 24 Hours 02/21/19 02/21/19 02/21/19 Range/Units 13:50 13:50 14:08 WBC 4.6 (4.0-10.5) K/mm3 RBC 4.72 (4.1-5.4) M/mm3 Hgb 11.7 L (12.0-16.0) gm/dl Hct 35.8 (35-47) % MCV 75.8 L (78-100) fl MCH 24.7 L (26-32) pg MCHC 32.7 (32-36) g/dl RDW 14.0 (11.5-14.0) % Plt Count 176 (150-450) K/mm3 MPV 10.6 H (6-9.5) fl Gran % 65.1 (36.0-66.0) % Eos # (Auto) 0.07 (0-0.5) Absolute Lymphs (auto) 1.21 (1.0-4.6) Absolute Monos (auto) 0.33 (0.0-1.3) Lymphocytes % 26.1 (24.0-44.0) % Monocytes % 7.1 (0.0-12.0) % Eosinophils % 1.5 (0.00-5.0) % Basophils % 0.2 (0.0-0.4) % Absolute Granulocytes 3.02 (1.4-6.9) Basophils # 0.01 (0-0.4) Sodium 139 (137-145) mmol/L Potassium 3.1 L (3.5-5.1) mmol/L Chloride 107 (98-107) mmol/L Carbon Dioxide 22 (22-30) mmol/L Anion Gap 12.9 (5-15) MEQ/L BUN 5 L (7-17) mg/dL Creatinine 0.51 L (0.52-1.04) mg/dL Estimated GFR > 60.0 ML/MIN Glucose 119 H (74-106) mg/dL Calcium 9.2 (8.4-10.2) mg/dL Total Bilirubin 0.30 (0.2-1.3) mg/dL AST 18 (14-36) U/L ALT 23 (0-35) U/L Alkaline Phosphatase 49 (38-126) U/L Serum Total Protein 6.5 (6.3-8.2) g/dL Albumin 3.5 (3.5-5.0) g/dL Amylase 43 (30-110) U/L Lipase 75 (23-300) U/L Beta HCG, Quant mIU/ml Urine Color (YELLOW) Urine Appearance (CLEAR) Urine pH (5-6) Ur Specific [place] (1.005-1.025) Urine Protein (Negative) Urine Ketones (NEGATIVE) Urine Blood (0-5) Reymundo/ul Urine Nitrite (NEGATIVE) Urine Bilirubin (NEGATIVE) Urine Urobilinogen (0-1) mg/dL Ur Leukocyte Esterase (NEGATIVE) Urine WBC (Auto) (0-5) /HPF Urine RBC (Auto) (0-2) /HPF U Epithel Cells (Auto) (FEW) /HPF Urine Bacteria (Auto) (NEGATIVE) /HPF Urine Mucus (Auto) (NEGATIVE) /HPF Urine Culture Reflexed (NO) Urine Glucose (NEGATIVE) mg/dL Urine HCG, Qual POSITIVE (Negative) 02/21/19 02/21/19 02/22/19 Range/Units 14:08 Unknown 05:15 WBC 4.0 (4.0-10.5) K/mm3 RBC 4.54 (4.1-5.4) M/mm3 Hgb 11.3 L (12.0-16.0) gm/dl Hct 34.8 L (35-47) % MCV 76.7 L (78-100) fl MCH 24.8 L (26-32) pg MCHC 32.5 (32-36) g/dl RDW 13.9 (11.5-14.0) % Plt Count 166 (150-450) K/mm3 MPV 10.5 H (6-9.5) fl Gran % 54.9 (36.0-66.0) % Eos # (Auto) 0.07 (0-0.5) Absolute Lymphs (auto) 1.48 (1.0-4.6) Absolute Monos (auto) 0.23 (0.0-1.3) Lymphocytes % 37.2 (24.0-44.0) % Monocytes % 5.8 (0.0-12.0) % Eosinophils % 1.8 (0.00-5.0) % Basophils % 0.3 (0.0-0.4) % Absolute Granulocytes 2.19 (1.4-6.9) Basophils # 0.01 (0-0.4) Sodium (137-145) mmol/L Potassium (3.5-5.1) mmol/L Chloride (98-107) mmol/L Carbon Dioxide (22-30) mmol/L Anion Gap (5-15) MEQ/L BUN (7-17) mg/dL Creatinine (0.52-1.04) mg/dL Estimated GFR ML/MIN Glucose (74-106) mg/dL Calcium (8.4-10.2) mg/dL Total Bilirubin (0.2-1.3) mg/dL AST (14-36) U/L ALT (0-35) U/L Alkaline Phosphatase (38-126) U/L Serum Total Protein (6.3-8.2) g/dL Albumin (3.5-5.0) g/dL Amylase (30-110) U/L Lipase (23-300) U/L Beta HCG, Quant 71522 mIU/ml Urine Color YELLOW (YELLOW) Urine Appearance CLEAR (CLEAR) Urine pH 7.0 (5-6) Ur Specific [place] 1.016 (1.005-1.025) Urine Protein NEGATIVE (Negative) Urine Ketones NEGATIVE (NEGATIVE) Urine Blood NEGATIVE (0-5) Reymundo/ul Urine Nitrite NEGATIVE (NEGATIVE) Urine Bilirubin NEGATIVE (NEGATIVE) Urine Urobilinogen NEGATIVE (0-1) mg/dL Ur Leukocyte Esterase NEGATIVE (NEGATIVE) Urine WBC (Auto) NONE (0-5) /HPF Urine RBC (Auto) NONE (0-2) /HPF U Epithel Cells (Auto) NONE (FEW) /HPF Urine Bacteria (Auto) NONE (NEGATIVE) /HPF Urine Mucus (Auto) SLIGHT (NEGATIVE) /HPF Urine Culture Reflexed NO (NO) Urine Glucose NEGATIVE (NEGATIVE) mg/dL Urine HCG, Qual (Negative) 02/22/19 Range/Units 05:15 WBC (4.0-10.5) K/mm3 RBC (4.1-5.4) M/mm3 Hgb (12.0-16.0) gm/dl Hct (35-47) % MCV (78-100) fl MCH (26-32) pg MCHC (32-36) g/dl RDW (11.5-14.0) % Plt Count (150-450) K/mm3 MPV (6-9.5) fl Gran % (36.0-66.0) % Eos # (Auto) (0-0.5) Absolute Lymphs (auto) (1.0-4.6) Absolute Monos (auto) (0.0-1.3) Lymphocytes % (24.0-44.0) % Monocytes % (0.0-12.0) % Eosinophils % (0.00-5.0) % Basophils % (0.0-0.4) % Absolute Granulocytes (1.4-6.9) Basophils # (0-0.4) Sodium 139 (137-145) mmol/L Potassium 3.4 L (3.5-5.1) mmol/L Chloride 111 H (98-107) mmol/L Carbon Dioxide 19 L (22-30) mmol/L Anion Gap 12.2 (5-15) MEQ/L BUN 3 L (7-17) mg/dL Creatinine 0.44 L (0.52-1.04) mg/dL Estimated GFR > 60.0 ML/MIN Glucose 84 (74-106) mg/dL Calcium 8.4 (8.4-10.2) mg/dL Total Bilirubin 0.30 (0.2-1.3) mg/dL AST 18 (14-36) U/L ALT 20 (0-35) U/L Alkaline Phosphatase 46 (38-126) U/L Serum Total Protein 5.9 L (6.3-8.2) g/dL Albumin 2.9 L (3.5-5.0) g/dL Amylase (30-110) U/L Lipase (23-300) U/L Beta HCG, Quant mIU/ml Urine Color (YELLOW) Urine Appearance (CLEAR) Urine pH (5-6) Ur Specific [place] (1.005-1.025) Urine Protein (Negative) Urine Ketones (NEGATIVE) Urine Blood (0-5) Reymundo/ul Urine Nitrite (NEGATIVE) Urine Bilirubin (NEGATIVE) Urine Urobilinogen (0-1) mg/dL Ur Leukocyte Esterase (NEGATIVE) Urine WBC (Auto) (0-5) /HPF Urine RBC (Auto) (0-2) /HPF U Epithel Cells (Auto) (FEW) /HPF Urine Bacteria (Auto) (NEGATIVE) /HPF Urine Mucus (Auto) (NEGATIVE) /HPF Urine Culture Reflexed (NO) Urine Glucose (NEGATIVE) mg/dL Urine HCG, Qual (Negative) - Radiology Impressions Radiology Exams & Impressions: Radiology Procedures Category Date Time Status LIVER OR SPLEEN [US] Stat Exams 02/21/19 16:19 Completed OB LIMITED [US] Stat Exams 02/21/19 16:20 Completed Assessment/Plan (1) Abdominal pain Current Visit: Yes Status: Acute Qualifiers: Abdominal location: upper abdomen, unspecified Qualified Code(s): R10.10 - Upper abdominal pain, unspecified Assessment & Plan: continues to have diarrhea and vomiting, will check GI pathogen panel on stool sample today. continue fluids and clears for now Code(s): R10.9 - UNSPECIFIED ABDOMINAL PAIN (2) Diarrhea Current Visit: Yes Status: Acute Qualifiers: Diarrhea type: unspecified type Qualified Code(s): R19.7 - Diarrhea, unspecified Code(s): R19.7 - DIARRHEA, UNSPECIFIED (3) Hypokalemia Current Visit: Yes Status: Acute Assessment & Plan: replacing, improved Code(s): E87.6 - HYPOKALEMIA (4) Current Visit: Yes Status: Acute Qualifiers: Weeks of gestation: 13 weeks Qualified Code(s): Z3A.13 - 13 weeks gestation of Code(s): Z34.90 - ENCNTR FOR SUPRVSN OF NORMAL , UNSP, UNSP TRIMESTER (5) Vomiting Current Visit: Yes Status: Acute Qualifiers: Vomiting type: unspecified Vomiting Intractability: non-intractable Nausea presence: with nausea Qualified Code(s): R11.2 - Nausea with vomiting, unspecified Code(s): R11.10 - VOMITING, UNSPECIFIED
[2019-02-22] MEDS: Sodium Chloride 0.9% 1000 ML 1,000 ML IV SCH ×2 (11:08→20:18)
[2019-02-22 18:00] LABS: Adenovirus F 40/41 NEGATIVE (NEGATIVE); Astrovirus NEGATIVE (NEGATIVE); C. Difficile Organism NEGATIVE (NEGATIVE); Campylobacter NEGATIVE (NEGATIVE); Cyclospora cayentanensis NEGATIVE (NEGATIVE); Entamoeaba histolytica NEGATIVE (NEGATIVE); Enteroaggregative E.coli NEGATIVE (NEGATIVE); Giardia lamblia NEGATIVE (NEGATIVE); Rotavirus A NEGATIVE (NEGATIVE); Salmonella NEGATIVE (NEGATIVE); Sapovirus NEGATIVE (NEGATIVE); Shiga-like toxin prod.E.coli NEGATIVE (NEGATIVE); Vibrio NEGATIVE (NEGATIVE)
[2019-02-22] MEDS ORDERED: NON-FORMULARY ITEM (Prenatal Vits W-Ca,Fe,Fa(<1mg) [Prenatal] 1 TAB) PO SCH (22:00)
[2019-02-22] MEDS ORDERED: THERAGRAN MULTIVITAMIN PO SCH (22:00)
[2019-02-23] MEDS: Phenergan 25 MG INJ IV PRN ×2 (00:32→11:58)
[2019-02-23] MEDS: MORPHINE SULFATE 10 MG/ML IV PRN ×3 (00:33→12:43)
[2019-02-23 06:06] LABS: BASOPHIL % 0.2 % (0.0-0.4); Basophil (Absolute #) 0.01 (0-0.4); Eosinophil % 1.7 % (0.00-5.0); Eosinophil (Absolute #) 0.08 (0-0.5); Granulocyte Absolute (ANC) 2.53 (1.4-6.9); Granulocytes % 54.9 % (36.0-66.0); Hematocrit 36.4 % (35-47); Hemoglobin 11.9 gm/dl (12.0-16.0); Lymphocyte (Absolute #) 1.72 (1.0-4.6); Lymphocytes % 37.3 % (24.0-44.0); Mean Cell Volume 76.6 fl (78-100); Mean Corpuscular Hgb Concent. 32.7 g/dl (32-36); Mean Platelet Volume 10.2 fl (6-9.5); Monocyte (Absolute #) 0.27 (0.0-1.3); Monocytes % 5.9 % (0.0-12.0); Platelet Count 183 K/mm3 (150-450); Red Blood Count 4.75 M/mm3 (4.1-5.4); Red Cell Distribution Width 14.2 % (11.5-14.0); White Blood Count 4.6 K/mm3 (4.0-10.5)
[2019-02-23] MEDS: Sodium Chloride 0.9% 1000 ML 1,000 ML IV SCH ×2 (06:24→14:35)
[2019-02-23 06:25] LABS: ALBUMIN 3.1 g/dL (3.5-5.0); ALKALINE PHOSPHATASE 49 U/L (38-126); ANION GAP 13.5 MEQ/L (5-15); BLOOD UREA NITROGEN 3 mg/dL (7-17); CHLORIDE 110 mmol/L (98-107); Calcium 8.6 mg/dL (8.4-10.2); Carbon Dioxide 20 mmol/L (22-30); Creatinine 1 0.49 mg/dL (0.52-1.04); Glucose 79 mg/dL (74-106); MAGNESIUM 1.9 mg/dL (1.6-2.3); Potassium 3.6 mmol/L (3.5-5.1); SGOT/AST 19 U/L (14-36); SGPT/ALT 20 U/L (0-35); SODIUM 140 mmol/L (137-145); Total Protein 6.1 g/dL (6.3-8.2)
--- NOTE | 2019-02-23 08:05 | PCM.NOTE ---
Date and Time: 02/23/19 08 Subjective Assessment: patient still has diarrhea when eating solid food, did well with clear liquids yesterday. Objective Exam General Appearance: no apparent distress, alert, obese Skin Exam: normal color, warm, dry Respiratory Exam: normal breath sounds, lungs clear, No respiratory distress Cardiovascular Exam: regular rate/rhythm, normal heart sounds Gastrointestinal/Abdomen Exam: soft, No tenderness, No mass OBJECTIVE DATA Vital Signs: Vital Signs - 24 hr Temp Pulse Resp BP Pulse Ox 02/23/19 07:24 98 F 71 18 109/57 96 02/23/19 06:46 98 02/23/19 03:55 97.7 F 77 14 100/53 98 02/23/19 00:00 98.0 F 75 17 108/56 96 02/22/19 20:00 97.8 F 71 12 117/58 98 02/22/19 19:56 97 02/22/19 16:00 98.6 F 74 16 118/58 98 02/22/19 12:00 97.9 F 71 16 121/64 97 Pain Assessment - Last Documented Pain Intensity 4 Pain Scale Used 0-10 Pain Scale Intake and Output: Intake & Output 02/20/19 02/21/19 02/22/19 02/23/19 11:59 11:59 11:59 11:59 Intake Total 1420 2839 Balance 1420 2839 Weight 130 kg 130 kg Lab Results: Lab Results-Last 24 Hours 02/22/19 02/23/19 02/23/19 Range/Units 16:17 05:22 05:22 WBC 4.6 (4.0-10.5) K/mm3 RBC 4.75 (4.1-5.4) M/mm3 Hgb 11.9 L (12.0-16.0) gm/dl Hct 36.4 (35-47) % MCV 76.6 L (78-100) fl MCH 25.0 L (26-32) pg MCHC 32.7 (32-36) g/dl RDW 14.2 H (11.5-14.0) % Plt Count 183 (150-450) K/mm3 MPV 10.2 H (6-9.5) fl Gran % 54.9 (36.0-66.0) % Eos # (Auto) 0.08 (0-0.5) Absolute Lymphs (auto) 1.72 (1.0-4.6) Absolute Monos (auto) 0.27 (0.0-1.3) Lymphocytes % 37.3 (24.0-44.0) % Monocytes % 5.9 (0.0-12.0) % Eosinophils % 1.7 (0.00-5.0) % Basophils % 0.2 (0.0-0.4) % Absolute Granulocytes 2.53 (1.4-6.9) Basophils # 0.01 (0-0.4) Sodium 140 (137-145) mmol/L Potassium 3.6 (3.5-5.1) mmol/L Chloride 110 H (98-107) mmol/L Carbon Dioxide 20 L (22-30) mmol/L Anion Gap 13.5 (5-15) MEQ/L BUN 3 L (7-17) mg/dL Creatinine 0.49 L (0.52-1.04) mg/dL Estimated GFR > 60.0 ML/MIN Glucose 79 (74-106) mg/dL Calcium 8.6 (8.4-10.2) mg/dL Magnesium 1.9 (1.6-2.3) mg/dL Total Bilirubin 0.20 (0.2-1.3) mg/dL AST 19 (14-36) U/L ALT 20 (0-35) U/L Alkaline Phosphatase 49 (38-126) U/L Serum Total Protein 6.1 L (6.3-8.2) g/dL Albumin 3.1 L (3.5-5.0) g/dL Stl C. cayetanensis PCR NEGATIVE (NEGATIVE) Stl Adenov F 40/41 PCR NEGATIVE (NEGATIVE) Stool Astrovirus (PCR) NEGATIVE (NEGATIVE) Stool Cryptosporidium PCR NEGATIVE (NEGATIVE) Stool EPEC (PCR) NEGATIVE (NEGATIVE) Stool EAEC (PCR) NEGATIVE (NEGATIVE) Stl E. histolytica PCR NEGATIVE (NEGATIVE) Stl P. shigelloides PCR NEGATIVE (NEGATIVE) Stool Sapovirus (PCR) NEGATIVE (NEGATIVE) St Y.enterocolitica PCR NEGATIVE (NEGATIVE) Stool Vibrio (PCR) NEGATIVE (NEGATIVE) Stl Vibrio cholerae PCR NEGATIVE (NEGATIVE) Stl Norovirus GI/GII PCR NEGATIVE (NEGATIVE) Campylobacter (PCR) NEGATIVE (NEGATIVE) C. difficile Toxin A&B NEGATIVE (NEGATIVE) Enterotoxigenic E. coli NEGATIVE (NEGATIVE) E.coli Shiga Toxins NEGATIVE (NEGATIVE) Giardia lamblia NEGATIVE (NEGATIVE) Rotavirus A (PCR) NEGATIVE (NEGATIVE) Salmonella (PCR) NEGATIVE (NEGATIVE) Shigella (PCR) NEGATIVE (NEGATIVE) Radiology Exams: Radiology Procedures Category Date Time Status LIVER OR SPLEEN [US] Stat Exams 02/21/19 16:19 Completed OB LIMITED [US] Stat Exams 02/21/19 16:20 Completed Assessment/Plan (1) Abdominal pain Current Visit: Yes Status: Acute Qualifiers: Abdominal location: upper abdomen, unspecified Qualified Code(s): R10.10 - Upper abdominal pain, unspecified Code(s): R10.9 - UNSPECIFIED ABDOMINAL PAIN (2) Diarrhea Current Visit: Yes Status: Acute Qualifiers: Diarrhea type: unspecified type Qualified Code(s): R19.7 - Diarrhea, unspecified Assessment & Plan: no clear etiology Code(s): R19.7 - DIARRHEA, UNSPECIFIED (3) Hypokalemia Current Visit: Yes Status: Acute Code(s): E87.6 - HYPOKALEMIA (4) Current Visit: Yes Status: Acute Qualifiers: Weeks of gestation: 13 weeks Qualified Code(s): Z3A.13 - 13 weeks gestation of Code(s): Z34.90 - ENCNTR FOR SUPRVSN OF NORMAL , UNSP, UNSP TRIMESTER (5) Vomiting Current Visit: Yes Status: Acute Qualifiers: Vomiting type: unspecified Vomiting Intractability: non-intractable Nausea presence: with nausea Qualified Code(s): R11.2 - Nausea with vomiting, unspecified Code(s): R11.10 - VOMITING, UNSPECIFIED
--- NOTE | 2019-02-23 10:00 | XRAY ---
Indication: Pain. Previous subchorionic hemorrhage. Two-dimensional transabdominal early OB ultrasound performed. Comparison: January 08 and February 05, 2019. Again there is a single viable intrauterine . Mean crown-rump length is 7.49 cm corresponding to 13 weeks 4 days. heart rate 159 bpm. Posterior placenta without abnormal retroplacental fluid or hemorrhage. Impression: Again single viable intrauterine measuring 13 weeks 4 days. Normal progression of . Previous subchorionic hemorrhage resolved.
[2019-02-23] MEDS ORDERED: TYLENOL 325 MG PO PRN (15:54)
[2019-02-23 16:12] VITALS: BP 103/60; PULSE 75; O2SAT 97
--- NOTE | 2019-02-23 17:11 | PCM.DS ---
Discharge Summary Date of Admission: 02/21/19 17:23 Admitting Physician: JENNIFER BHAKTA Primary Care Provider: ANNMAREI ARREGUIN ERENDIRA Allergies Allergies latex Allergy (Severe, Verified 02/21/19 14:05) STOPPED BREATHING Influenza Virus Vaccines Allergy (Verified 02/21/19 14:05) ketorolac [From Toradol] Allergy (Verified 02/21/19 14:05) levothyroxine sodium [From Synthroid] Allergy (Verified 02/21/19 14:05) methylphenidate [From Ritalin] Allergy (Verified 02/21/19 14:05) prochlorperazine [From Compazine] Allergy (Verified 02/21/19 14:05) aspirin Adverse Reaction (Mild, Verified 02/21/19 14:05) Vomiting medidate Adverse Reaction (Mild, Uncoded 01/08/19 17:47) [facility] Summary - Hospital Course Hospital Course: patient 13 weeks admitted with vomiting, diarrhea and dehydration with hypokalemia. fluid deficit replaced, stool gi pathogen panel was negative. she is tolerating regular diet with no further issues today. discharging to home - Vitals & Intake/Output Vital Signs: Vital Signs Temperature 98.6 F 02/23/19 16:10 Pulse Rate 75 02/23/19 16:10 Respiratory Rate 18 02/23/19 16:10 Blood Pressure 103/60 02/23/19 16:10 O2 Sat by Pulse Oximetry 97 02/23/19 16:10 Intake & Output: Intake & Output 02/21/19 02/22/19 02/23/19 02/24/19 11:59 11:59 11:59 11:59 Intake Total 1420 3199 1694 Output Total 200 Balance 1420 3199 1494 Weight 130 kg 130 kg - Lab Result Diagrams: 02/23/19 05:22 02/23/19 05:22 Lab Results-Last 24 Hrs: Lab Results-Last 24 Hours 02/22/19 02/23/19 02/23/19 Range/Units 16:17 05:22 05:22 WBC 4.6 (4.0-10.5) K/mm3 RBC 4.75 (4.1-5.4) M/mm3 Hgb 11.9 L (12.0-16.0) gm/dl Hct 36.4 (35-47) % MCV 76.6 L (78-100) fl MCH 25.0 L (26-32) pg MCHC 32.7 (32-36) g/dl RDW 14.2 H (11.5-14.0) % Plt Count 183 (150-450) K/mm3 MPV 10.2 H (6-9.5) fl Gran % 54.9 (36.0-66.0) % Eos # (Auto) 0.08 (0-0.5) Absolute Lymphs (auto) 1.72 (1.0-4.6) Absolute Monos (auto) 0.27 (0.0-1.3) Lymphocytes % 37.3 (24.0-44.0) % Monocytes % 5.9 (0.0-12.0) % Eosinophils % 1.7 (0.00-5.0) % Basophils % 0.2 (0.0-0.4) % Absolute Granulocytes 2.53 (1.4-6.9) Basophils # 0.01 (0-0.4) Sodium 140 (137-145) mmol/L Potassium 3.6 (3.5-5.1) mmol/L Chloride 110 H (98-107) mmol/L Carbon Dioxide 20 L (22-30) mmol/L Anion Gap 13.5 (5-15) MEQ/L BUN 3 L (7-17) mg/dL Creatinine 0.49 L (0.52-1.04) mg/dL Estimated GFR > 60.0 ML/MIN Glucose 79 (74-106) mg/dL Calcium 8.6 (8.4-10.2) mg/dL Magnesium 1.9 (1.6-2.3) mg/dL Total Bilirubin 0.20 (0.2-1.3) mg/dL AST 19 (14-36) U/L ALT 20 (0-35) U/L Alkaline Phosphatase 49 (38-126) U/L Serum Total Protein 6.1 L (6.3-8.2) g/dL Albumin 3.1 L (3.5-5.0) g/dL Stl C. cayetanensis PCR NEGATIVE (NEGATIVE) Stl Adenov F 40/41 PCR NEGATIVE (NEGATIVE) Stool Astrovirus (PCR) NEGATIVE (NEGATIVE) Stool Cryptosporidium PCR NEGATIVE (NEGATIVE) Stool EPEC (PCR) NEGATIVE (NEGATIVE) Stool EAEC (PCR) NEGATIVE (NEGATIVE) Stl E. histolytica PCR NEGATIVE (NEGATIVE) Stl P. shigelloides PCR NEGATIVE (NEGATIVE) Stool Sapovirus (PCR) NEGATIVE (NEGATIVE) St Y.enterocolitica PCR NEGATIVE (NEGATIVE) Stool Vibrio (PCR) NEGATIVE (NEGATIVE) Stl Vibrio cholerae PCR NEGATIVE (NEGATIVE) Stl Norovirus GI/GII PCR NEGATIVE (NEGATIVE) Campylobacter (PCR) NEGATIVE (NEGATIVE) C. difficile Toxin A&B NEGATIVE (NEGATIVE) Enterotoxigenic E. coli NEGATIVE (NEGATIVE) E.coli Shiga Toxins NEGATIVE (NEGATIVE) Giardia lamblia NEGATIVE (NEGATIVE) Rotavirus A (PCR) NEGATIVE (NEGATIVE) Salmonella (PCR) NEGATIVE (NEGATIVE) Shigella (PCR) NEGATIVE (NEGATIVE) - Radiology Exams Ordered Rad Exams-Entire Visit: Radiology Procedures Category Date Time Status LIVER OR SPLEEN [US] Stat Exams 02/21/19 16:19 Completed OB <14 WKS 1ST GESTATION [US] Routine Exams 02/23/19 09:04 Completed OB LIMITED [US] Stat Exams 02/21/19 16:20 Completed - Procedures and Test Procedures and Tests throughout Hospitalization: Therapy Orders & Screens 02/21/19 18:31 RT Screen per Nursing Assess ONCE Comment: Protocol Order Physician Instructions: Greater than 3 points order RT Admission Screen Reason For Exam: Triggered on Admission Diagnosis: abdominal pain Diagnosis: abdominal pain Pneumonia: No Home O2: No Asthma: Yes CHF: No Home CPAP/BIPAP: No Home Nebs/MDI: Yes Total Points: 9 02/22/19 07:00 Respiratory Therapy Assessment DAILY Comment: Diagnosis: abdominal pain Discharge Exam General Appearance: no apparent distress, alert, obese Skin Exam: normal color, warm, dry Respiratory Exam: normal breath sounds, lungs clear, No respiratory distress Cardiovascular Exam: regular rate/rhythm, normal heart sounds Gastrointestinal/Abdomen Exam: soft, No tenderness, No mass Extremity Exam: normal inspection, normal range of motion Back Exam: normal inspection Final Diagnosis/Problem List - Final Discharge Diagnosis/Problem (1) Abdominal pain Current Visit: Yes Status: Acute Code(s): R10.9 - UNSPECIFIED ABDOMINAL PAIN (2) Diarrhea Current Visit: Yes Status: Acute Code(s): R19.7 - DIARRHEA, UNSPECIFIED (3) Hypokalemia Current Visit: Yes Status: Acute Code(s): E87.6 - HYPOKALEMIA (4) Current Visit: Yes Status: Acute Code(s): Z34.90 - ENCNTR FOR SUPRVSN OF NORMAL , UNSP, UNSP TRIMESTER (5) Vomiting Current Visit: Yes Status: Acute Code(s): R11.10 - VOMITING, UNSPECIFIED - Discharge Disposition: Home, Self-Care Condition: Good Prescriptions: New Promethazine HCl 12.5 mg PO Q6-8HPRN PRN #20 tablet PRN Reason: Nausea Continue Vits W-Ca,Fe,FA(<1Mg) [] 1 tab PO HS Instructions: Nausea and Vomiting, Adult (DC) Follow up with: ANNMARIE ARREGUIN MD [Primary Care Provider] - 03/01/19 2:30 pm
== END 2019-02-23 17:35 | disposition home or self-care (01) ==
LOC: ED 13:20 → MED SURG 17:23
PROVIDERS: ADMIT Family Medicine; ATTEND Family Medicine
DX: O26.891 Other specified pregnancy related conditions, first trimester (principal); Z3A.13 13 weeks gestation of pregnancy; R10.11 Right upper quadrant pain; R19.7 Diarrhea, unspecified; E86.0 Dehydration; E87.6 Hypokalemia; R11.2 Nausea with vomiting, unspecified
CPT/HCPCS: 36000; 36415; 76705; 76801; 76815; 80053; 81001; 82150; 83690; 83735; 84702; 84703; 85025; 87507; 93268; 94762; 96360; 96361; 96374; 96375; 99285; G0378; 94760; J2270; J2405; J2550; A9270-GY

== ENCOUNTER 2019-03-08 16:33 | Emergency (ER) | payer OTHER ==
[2019-03-08] MEDS ORDERED: Zofran 4 MG/2 ML VIAL IV ONE (17:03)
[2019-03-08] MEDS ORDERED: Sodium Chloride 0.9% 1000 ML 1,000 ML IV STA (17:03)
[2019-03-08] MEDS ORDERED: Zofran 4 MG/2 ML VIAL ONE (17:14)
[2019-03-08] MEDS ORDERED: Sodium Chloride 0.9% 1000 ML 1,000 ML ONE (17:14)
[2019-03-08 17:17] LABS: BASOPHIL % 0.2 % (0.0-0.4); Basophil (Absolute #) 0.01 (0-0.4); Eosinophil % 1.3 % (0.00-5.0); Eosinophil (Absolute #) 0.08 (0-0.5); Granulocyte Absolute (ANC) 4.22 (1.4-6.9); Granulocytes % 67.5 % (36.0-66.0); Hematocrit 36.3 % (35-47); Hemoglobin 12.2 gm/dl (12.0-16.0); Lymphocyte (Absolute #) 1.47 (1.0-4.6); Lymphocytes % 23.6 % (24.0-44.0); Mean Cell Volume 75.8 fl (78-100); Mean Corpuscular Hemoglobin 25.5 pg (26-32); Mean Corpuscular Hgb Concent. 33.6 g/dl (32-36); Mean Platelet Volume 10.4 fl (6-9.5); Monocyte (Absolute #) 0.46 (0.0-1.3); Monocytes % 7.4 % (0.0-12.0); Platelet Count 187 K/mm3 (150-450); Red Blood Count 4.79 M/mm3 (4.1-5.4); White Blood Count 6.2 K/mm3 (4.0-10.5)
[2019-03-08 17:25] LABS: Appearance CLOUDY (CLEAR); Bacteria MANY /HPF (NEGATIVE); Bilirubin NEGATIVE (NEGATIVE); Blood NEGATIVE Ery/ul (0-5); Epithelial Cells FEW /HPF (FEW); Glucose NEGATIVE (NEGATIVE); Ketones NEGATIVE (NEGATIVE); Leukocyte Esterase NEGATIVE (NEGATIVE); Mucus SLIGHT /HPF (NEGATIVE); Nitrite NEGATIVE (NEGATIVE); Protein,Urine Dip NEGATIVE (Negative); Specific Gravity 1.023 (1.005-1.025); Urobilinogen NEGATIVE mg/dL (0-1)
[2019-03-08 17:35] LABS: ALBUMIN 3.5 g/dL (3.5-5.0); ALKALINE PHOSPHATASE 47 U/L (38-126); BLOOD UREA NITROGEN 7 mg/dL (7-17); CHLORIDE 107 mmol/L (98-107); Calcium 8.9 mg/dL (8.4-10.2); Carbon Dioxide 20 mmol/L (22-30); Creatinine 1 0.46 mg/dL (0.52-1.04); Glucose 94 mg/dL (74-106); Potassium 3.6 mmol/L (3.5-5.1); SGOT/AST 18 U/L (14-36); SGPT/ALT 16 U/L (0-35); SODIUM 138 mmol/L (137-145); Total Protein 6.8 g/dL (6.3-8.2)
[2019-03-08] MEDS ORDERED: Transderm Scop 1.5MG Patch TOP ONE (18:45)
--- NOTE | 2019-03-08 20:03 | ERPHSYRPT ---
- History of Present Illness Historian: patient Exam Limitations: no limitations Patient Subjective Stated Complaint: Pt states "I woke up this morning and I started to have horrible abdominal pain and diarrhea. I vomited as well." Triage Nursing Assessment: PT presented alert and oriented X 3, skin Pwd. Pt ambulates with an upright steady gait, able to speak in clear full sentences. PT in no apparent respiratory distress. Physician History: Pt is a 28 y/o female that is 15 week . She presented to the ED with N/ V/D. Pt state, has severe abdominal cramps, watery diarrhea and vomiting. Pt had lab work that showed normal CMP, no leukocytosis, no nitrates or leukocyte esterase in the urine. She did not vomit in the ER, but secondary to her complains, got Zofran and Scopolamine patch. Pt was not able to give any stool sample and GI pannel was not done. Pt did get 1 lit of IVF. Pt is safe for d/ c. Secondary to pt's compains, I did talk to Dr Arreguin, that cleared her to d/c and f/u with him in the office in the AM. Pt got all info. Allergies/Adverse Reactions: latex Allergy (Severe, Verified 02/21/19 14:05) STOPPED BREATHING Influenza Virus Vaccines Allergy (Verified 02/21/19 14:05) ketorolac [From Toradol] Allergy (Verified 02/21/19 14:05) levothyroxine sodium [From Synthroid] Allergy (Verified 02/21/19 14:05) methylphenidate [From Ritalin] Allergy (Verified 02/21/19 14:05) prochlorperazine [From Compazine] Allergy (Verified 02/21/19 14:05) aspirin Adverse Reaction (Mild, Verified 02/21/19 14:05) Vomiting medidate Adverse Reaction (Mild, Uncoded 01/08/19 17:47) VOMTIING Home Medications: Vits W-Ca,Fe,FA(<1Mg) [] 1 tab PO HS 12/27/18 [History] Hx Tetanus, Diphtheria Vaccination/Date Given: Yes Hx Influenza Vaccination/Date Given: No Hx Pneumococcal Vaccination/Date Given: No Immunizations Up to Date: Yes - Past Medical History Pertinent Past Medical History: Yes Neurological History: Migraines ENT History: No Pertinent History Cardiac History: Arrhythmia, Other Respiratory History: Asthma Endocrine Medical History: Hypothyroidism Musculoskeletal History: No Pertinent History GI Medical History: No Pertinent History History: No Pertinent History Psycho-Social History: Attention Deficit Disorder Female Reproductive Disorders: No Pertinent History Other Medical History: Bradycardia, hypotension (usual 90s/60s), Gestational Diabetes - Past Surgical History Past Surgical History: Yes Neuro Surgical History: No Pertinent History Cardiac: No Pertinent History Respiratory: No Pertinent History Gastrointestinal: Cholecystectomy Genitourinary: No Pertinent History Musculoskeletal: No Pertinent History Female Surgical History: Section Other Surgical History: c section x2 - Social History Smoking Status: Former smoker How long have you smoked: 8 years Exposure to second hand smoke: No Drug Use: none Patient Lives Alone: No Significant Family History: cancer (colon/breast), diabetes, other (Gall bladder disease) - Female History Hx Last Menstrual Period: 11/19/2018 Hx Now: Yes Expected Date of Delivery: 08/26/19 Gestational Age: 15 w 4 d - Nursing Vital Signs Nursing Vital Signs: Initial Vital Signs Temperature 98.2 F 03/08/19 16:38 Pulse Rate 96 H 03/08/19 16:38 Respiratory Rate 22 03/08/19 16:38 Blood Pressure 145/72 03/08/19 16:38 O2 Sat by Pulse Oximetry 99 03/08/19 16:38 Pain Scale Pain Intensity 4 - Physical Exam SpO2: 100 Ordered Tests: Active Orders 24 hr Category Date Time Status CBC W DIFF Stat Lab 03/08/19 17:05 Completed CMP Stat Lab 03/08/19 17:05 Completed CULTURE,URINE Stat Lab 03/08/19 17:05 Received Lactic Acid Stat Lab 03/08/19 17:20 Completed UA W/RFX UR CULTURE Stat Lab 03/08/19 17:05 Completed Medication Summary Discontinued Medications Generic Name Dose Route Start Last Admin Trade Name Freq PRN Reason Stop Dose Admin Sodium Chloride 1,000 mls @ 999 mls/hr 03/08/19 17:03 03/08/19 18:26 Sodium Chloride 0.9% 1000 Ml IV 03/08/19 18:03 Infused .Q1H1M STA Infusion Sodium Chloride Confirm 03/08/19 17:14 Sodium Chloride 0.9% 1000 Ml Administered 03/08/19 17:15 Dose 1,000 mls @ ud .ROUTE .[facility] ONE Ondansetron HCl 4 mg 03/08/19 17:03 03/08/19 17:15 Zofran 4 Mg/2 Ml Vial IV 03/08/19 17:04 4 mg STAT ONE Administration Ondansetron HCl Confirm 03/08/19 17:14 Zofran 4 Mg/2 Ml Vial Administered 03/08/19 17:15 Dose 4 mg .ROUTE .[facility] ONE Scopolamine HBr 1.5 mg 03/08/19 18:45 03/08/19 18:58 Transderm Scop 1.5mg Patch TOP 03/08/19 18:46 1.5 mg STAT ONE Administration Lab/Rad Data: Laboratory Result Diagrams 03/08/19 17:05 03/08/19 17:05 Laboratory Results 03/08/19 03/08/19 03/08/19 Range/Units 17:20 17:05 17:05 WBC (4.0-10.5) K/mm3 RBC (4.1-5.4) M/mm3 Hgb (12.0-16.0) gm/dl Hct (35-47) % MCV (78-100) fl MCH (26-32) pg MCHC (32-36) g/dl RDW (11.5-14.0) % Plt Count (150-450) K/mm3 MPV (6-9.5) fl Gran % (36.0-66.0) % Eos # (Auto) (0-0.5) Absolute Lymphs (auto) (1.0-4.6) Absolute Monos (auto) (0.0-1.3) Lymphocytes % (24.0-44.0) % Monocytes % (0.0-12.0) % Eosinophils % (0.00-5.0) % Basophils % (0.0-0.4) % Absolute Granulocytes (1.4-6.9) Basophils # (0-0.4) Sodium 138 (137-145) mmol/L Potassium 3.6 (3.5-5.1) mmol/L Chloride 107 (98-107) mmol/L Carbon Dioxide 20 L (22-30) mmol/L Anion Gap 14.0 (5-15) MEQ/L BUN 7 (7-17) mg/dL Creatinine 0.46 L (0.52-1.04) mg/dL Estimated GFR > 60.0 ML/MIN Glucose 94 (74-106) mg/dL Lactic Acid 1.2 (0.4-2.0) Calcium 8.9 (8.4-10.2) mg/dL Total Bilirubin 0.30 (0.2-1.3) mg/dL AST 18 (14-36) U/L ALT 16 (0-35) U/L Alkaline Phosphatase 47 (38-126) U/L Serum Total Protein 6.8 (6.3-8.2) g/dL Albumin 3.5 (3.5-5.0) g/dL Urine Color YELLOW (YELLOW) Urine Appearance CLOUDY (CLEAR) Urine pH 6.0 (5-6) Ur Specific [place] 1.023 (1.005-1.025) Urine Protein NEGATIVE (Negative) Urine Ketones NEGATIVE (NEGATIVE) Urine Blood NEGATIVE (0-5) Reymundo/ul Urine Nitrite NEGATIVE (NEGATIVE) Urine Bilirubin NEGATIVE (NEGATIVE) Urine Urobilinogen NEGATIVE (0-1) mg/dL Ur Leukocyte Esterase NEGATIVE (NEGATIVE) Urine WBC (Auto) 3-5 (0-5) /HPF Urine RBC (Auto) NONE (0-2) /HPF U Epithel Cells (Auto) FEW (FEW) /HPF Urine Bacteria (Auto) MANY (NEGATIVE) /HPF Urine Mucus (Auto) SLIGHT (NEGATIVE) /HPF Urine Culture Reflexed YES (NO) Urine Glucose NEGATIVE (NEGATIVE) mg/dL 03/08/19 Range/Units 17:05 WBC 6.2 (4.0-10.5) K/mm3 RBC 4.79 (4.1-5.4) M/mm3 Hgb 12.2 (12.0-16.0) gm/dl Hct 36.3 (35-47) % MCV 75.8 L (78-100) fl MCH 25.5 L (26-32) pg MCHC 33.6 (32-36) g/dl RDW 14.0 (11.5-14.0) % Plt Count 187 (150-450) K/mm3 MPV 10.4 H (6-9.5) fl Gran % 67.5 H (36.0-66.0) % Eos # (Auto) 0.08 (0-0.5) Absolute Lymphs (auto) 1.47 (1.0-4.6) Absolute Monos (auto) 0.46 (0.0-1.3) Lymphocytes % 23.6 L (24.0-44.0) % Monocytes % 7.4 (0.0-12.0) % Eosinophils % 1.3 (0.00-5.0) % Basophils % 0.2 (0.0-0.4) % Absolute Granulocytes 4.22 (1.4-6.9) Basophils # 0.01 (0-0.4) Sodium (137-145) mmol/L Potassium (3.5-5.1) mmol/L Chloride (98-107) mmol/L Carbon Dioxide (22-30) mmol/L Anion Gap (5-15) MEQ/L BUN (7-17) mg/dL Creatinine (0.52-1.04) mg/dL Estimated GFR ML/MIN Glucose (74-106) mg/dL Lactic Acid (0.4-2.0) Calcium (8.4-10.2) mg/dL Total Bilirubin (0.2-1.3) mg/dL AST (14-36) U/L ALT (0-35) U/L Alkaline Phosphatase (38-126) U/L Serum Total Protein (6.3-8.2) g/dL Albumin (3.5-5.0) g/dL Urine Color (YELLOW) Urine Appearance (CLEAR) Urine pH (5-6) Ur Specific [place] (1.005-1.025) Urine Protein (Negative) Urine Ketones (NEGATIVE) Urine Blood (0-5) Reymundo/ul Urine Nitrite (NEGATIVE) Urine Bilirubin (NEGATIVE) Urine Urobilinogen (0-1) mg/dL Ur Leukocyte Esterase (NEGATIVE) Urine WBC (Auto) (0-5) /HPF Urine RBC (Auto) (0-2) /HPF U Epithel Cells (Auto) (FEW) /HPF Urine Bacteria (Auto) (NEGATIVE) /HPF Urine Mucus (Auto) (NEGATIVE) /HPF Urine Culture Reflexed (NO) Urine Glucose (NEGATIVE) mg/dL - Progress Progress: unchanged Progress Note: Pt is a 28 y/o female that is 15 week , that presented to the ED with N/ V/D. Pt had lab work in the ER that showed normal CMP, no leukocytosis, UA showed no nitrites or leukocyte esterase. Lactate was normal. During her stay in the ER pt did not vomit or had any BM, so GI pannel was not performed. Pt did get Zofran IV and Scopolamine patch, secondary to her complains. A liter of IVF was given. As pt requested Dr Arreguin was contacted, and he agreed on D/C the pt to home, and she should f/u with his as out pt in the AM. Pt was informed about results, and plan. 03/08/19 20:00 Discussed with .: Ben Will see patient in: office Counseled pt/family regarding: need for follow-up - Departure Departure Disposition: Home Clinical Impression: Vomiting Condition: Stable Critical Care Time: No Referrals: ANNMARIE ARREGUIN MD [Primary Care Provider] - Additional Instructions: F/U with Dr Arregiun in the office.
[2019-03-08 20:07] VITALS: BP 125/74; PULSE 84; O2SAT 98
== END 2019-03-08 20:15 | disposition home or self-care (01) ==
LOC: ED 16:33
DX: O21.0 Mild hyperemesis gravidarum (principal); Z3A.15 15 weeks gestation of pregnancy
CPT/HCPCS: 36415; 80053; 81001; 83605; 85025; 87077; 87086; 87186; 96360; 96374; 96375; 99284; J2405; A9270-GY

== ENCOUNTER 2019-05-07 12:24 | Emergency (ER) | payer OTHER ==
[2019-05-07] MEDS ORDERED: Sodium Chloride 0.9% 1000 ML 1,000 ML IV STA (12:57)
--- NOTE | 2019-05-07 13:05 | ERPHSYRPT ---
- History of Present Illness Time Seen by Provider: 05/07/19 12:50 Source: patient Exam Limitations: no limitations Patient Subjective Stated Complaint: Pt began spot bleeding vaginally yesterday , states that she had diarhea yesterday and there was a lot of blood in the stool and so she thought she was bleeding from her bowels, today she was vaginally spotting and went to the restroom again with cramping and diarhea and more blood, she is 25 weeks Triage Nursing Assessment: Pt walked into the ER with complaints of cramping and bleeding, 25 weeks gestation, baby heart rate of 140, vitals wnl, rates pain /10, hx of subchorianic hemmorhage on this , hx of c-sections x2 , hx of gestational diabetes on previous , doesn't appear to be in any distress, audible movement heard Physician History: 28-year-old white female 4 para 2 t,25 weeks estimated gestational age who states she's had a subchorionic bleed' Arrives with complaints of abdominal cramping she states that she went swimming yesterday after swimming she had diarrhea she thought she had bloody stools however today she states she's had some vaginal bleeding and bloody stool she states she's had abdominal cramping. No vomiting. Past medical history includes migraines, arrhythmia, asthma, attention deficit disorder, bradycardia, hypotension, gestational diabetes Past surgical history includes cholecystectomy Timing/Duration: yesterday Severity: moderate Modifying Factors: Improves With: nothing Associated Symptoms: abdominal pain, other (vaginal spotting, diarrhea, blood in stools), No nausea, No vomiting, No shortness of breath, No heartburn, No diaphoresis, No cough, No chills, No chest pain, No fever, No headaches, No loss of appetite, No malaise, No rash, No syncope, No seizure, No weakness Allergies/Adverse Reactions: latex Allergy (Severe, Verified 05/07/19 12:47) STOPPED BREATHING Influenza Virus Vaccines Allergy (Verified 05/07/19 12:47) ketorolac [From Toradol] Allergy (Verified 05/07/19 12:47) levothyroxine sodium [From Synthroid] Allergy (Verified 05/07/19 12:47) methylphenidate [From Ritalin] Allergy (Verified 05/07/19 12:47) prochlorperazine [From Compazine] Allergy (Verified 05/07/19 12:47) aspirin Adverse Reaction (Mild, Verified 05/07/19 12:47) Vomiting medidate Adverse Reaction (Mild, Uncoded 01/08/19 17:47) VOMTIING Home Medications: Vits W-Ca,Fe,FA(<1Mg) [] 1 tab PO HS 12/27/18 [History] Hx Tetanus, Diphtheria Vaccination/Date Given: Yes Hx Influenza Vaccination/Date Given: No Hx Pneumococcal Vaccination/Date Given: No - Review of Systems Constitutional: No Fever, No Chills Eyes: No Symptoms Ears, Nose, & Throat: No Symptoms Respiratory: No Cough, No Dyspnea Cardiac: No Chest Pain, No Edema, No Syncope Abdominal/Gastrointestinal: Abdominal Pain, Diarrhea, Hematochezia, No Nausea, No Vomiting, No Constipation, No Hematemesis, No Melena, No Dysphagia Genitourinary Symptoms: (patient states she is 25 weeks ), Vaginal Bleeding, No Dysuria, No Frequency, No Hematuria, No Hesitancy, No Incontinence, No Urgency, No Urinary Retention, No Flank Pain, No Menorrhagia, No Vaginal Discharge Musculoskeletal: No Back Pain, No Neck Pain Skin: No Rash Neurological: No Dizziness, No Focal Weakness, No Sensory Changes Psychological: No Symptoms Endocrine: No Symptoms All Other Systems: Reviewed and Negative - Past Medical History Pertinent Past Medical History: Yes Neurological History: Migraines ENT History: No Pertinent History Cardiac History: Arrhythmia, Other Respiratory History: Asthma Endocrine Medical History: Hypothyroidism Musculoskeletal History: No Pertinent History GI Medical History: No Pertinent History History: No Pertinent History Psycho-Social History: Attention Deficit Disorder Female Reproductive Disorders: No Pertinent History Other Medical History: Bradycardia, hypotension (usual 90s/60s), Gestational Diabetes - Past Surgical History Past Surgical History: Yes Neuro Surgical History: No Pertinent History Cardiac: No Pertinent History Respiratory: No Pertinent History Gastrointestinal: Cholecystectomy Genitourinary: No Pertinent History Musculoskeletal: No Pertinent History Female Surgical History: Section Other Surgical History: c section x2 - Social History Smoking Status: Former smoker How long have you smoked: 8 years Exposure to second hand smoke: No Drug Use: none Patient Lives Alone: No Significant Family History: cancer (colon/breast), diabetes, other (Gall bladder disease) - Female History Hx Now: Yes Expected Date of Delivery: 08/26/19 - Nursing Vital Signs Nursing Vital Signs: Initial Vital Signs Temperature 98.0 F 05/07/19 12:27 Pulse Rate 81 05/07/19 12:27 Blood Pressure 116/74 05/07/19 12:27 O2 Sat by Pulse Oximetry 97 05/07/19 12:27 Pain Scale Pain Intensity 1 - Physical Exam General Appearance: no apparent distress, alert Eye Exam: PERRL/EOMI, eyes nml inspection Ears, Nose, Throat Exam: normal ENT inspection, TMs normal, pharynx normal, moist mucous membranes Neck Exam: normal inspection, non-tender, supple, full range of motion Respiratory Exam: normal breath sounds, lungs clear, No respiratory distress Cardiovascular Exam: regular rate/rhythm, normal heart sounds, normal peripheral pulses, capillary refill <2 sec Gastrointestinal/Abdomen Exam: soft, normal bowel sounds, No tenderness, No mass Back Exam: normal inspection, normal range of motion, No CVA tenderness, No vertebral tenderness Extremity Exam: normal inspection, normal range of motion, pelvis stable Neurologic Exam: alert, oriented x 3, cooperative, 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, normal mood/affect, nml cerebellar function, nml station & gait, sensation nml, No motor deficits Skin Exam: normal color, warm, dry, No rash Lymphatic Exam: No adenopathy SpO2 Interpretation: normal (97%) SpO2: 97 Ordered Tests: Active Orders 24 hr Category Date Time Status IV Insertion STAT Care 05/07/19 13:00 Active OB >14 WKS 1st GESTATION [US] Stat Exams 05/07/19 12:58 Taken CBC W DIFF Stat Lab 05/07/19 13:25 Completed CMP Stat Lab 05/07/19 13:25 Completed CULTURE,URINE Stat Lab 05/07/19 14:05 Received Occult Blood, Other Screening Stat Lab 05/07/19 13:50 Completed UA W/RFX UR CULTURE Stat Lab 05/07/19 14:05 Completed Wet Prep Stat Lab 05/07/19 14:39 Ordered Medication Summary Discontinued Medications Generic Name Dose Route Start Last Admin Trade Name Freq PRN Reason Stop Dose Admin Sodium Chloride 1,000 mls @ 999 mls/hr 05/07/19 12:57 05/07/19 14:43 Sodium Chloride 0.9% 1000 Ml IV 05/07/19 13:57 Infused .Q1H1M STA Infusion Sodium Chloride Confirm 05/07/19 13:31 Sodium Chloride 0.9% 1000 Ml Administered 05/07/19 13:32 Dose 1,000 mls @ .ROUTE .[facility] ONE Lab/Rad Data: Laboratory Result Diagrams 05/07/19 13:25 05/07/19 13:25 Laboratory Results 05/07/19 05/07/19 05/07/19 Range/Units 14:05 13:50 13:25 WBC (4.0-10.5) K/mm3 RBC (4.1-5.4) M/mm3 Hgb (12.0-16.0) gm/dl Hct (35-47) % MCV (78-100) fl MCH (26-32) pg MCHC (32-36) g/dl RDW (11.5-14.0) % Plt Count (150-450) K/mm3 MPV (6-9.5) fl Gran % (36.0-66.0) % Eos # (Auto) (0-0.5) Absolute Lymphs (auto) (1.0-4.6) Absolute Monos (auto) (0.0-1.3) Lymphocytes % (24.0-44.0) % Monocytes % (0.0-12.0) % Eosinophils % (0.00-5.0) % Basophils % (0.0-0.4) % Absolute Granulocytes (1.4-6.9) Basophils # (0-0.4) Sodium 137 (137-145) mmol/L Potassium 3.0 L (3.5-5.1) mmol/L Chloride 109 H (98-107) mmol/L Carbon Dioxide 20 L (22-30) mmol/L Anion Gap 11.3 (5-15) MEQ/L BUN 4 L (7-17) mg/dL Creatinine 0.43 L (0.52-1.04) mg/dL Estimated GFR > 60.0 ML/MIN Glucose 115 H (74-106) mg/dL Calcium 8.8 (8.4-10.2) mg/dL Total Bilirubin 0.30 (0.2-1.3) mg/dL AST 16 (14-36) U/L ALT 16 (0-35) U/L Alkaline Phosphatase 53 (38-126) U/L Serum Total Protein 6.0 L (6.3-8.2) g/dL Albumin 2.9 L (3.5-5.0) g/dL Urine Color YELLOW (YELLOW) Urine Appearance SLIGHTLY CLOUDY (CLEAR) Urine pH 6.0 (5-6) Ur Specific [place]thel 1.023 (1.005-1.025) Urine Protein NEGATIVE (Negative) Urine Ketones NEGATIVE (NEGATIVE) Urine Blood NEGATIVE (0-5) Reymundo/ul Urine Nitrite NEGATIVE (NEGATIVE) Urine Bilirubin NEGATIVE (NEGATIVE) Urine Urobilinogen NEGATIVE (0-1) mg/dL Ur Leukocyte Esterase TRACE (NEGATIVE) Urine WBC (Auto) 3-5 (0-5) /HPF Urine RBC (Auto) 0-2 (0-2) /HPF U Epithel Cells (Auto) RARE (FEW) /HPF Urine Bacteria (Auto) MODERATE (NEGATIVE) /HPF Urine Mucus (Auto) SLIGHT (NEGATIVE) /HPF Urine Culture Reflexed YES (NO) Urine Glucose 50 (NEGATIVE) mg/dL Stool Occult Blood NEGATIVE (Negative) 05/07/19 Range/Units 13:25 WBC 5.9 (4.0-10.5) K/mm3 RBC 4.35 (4.1-5.4) M/mm3 Hgb 11.0 L (12.0-16.0) gm/dl Hct 32.9 L (35-47) % MCV 75.6 L (78-100) fl MCH 25.2 L (26-32) pg MCHC 33.4 (32-36) g/dl RDW 14.2 H (11.5-14.0) % Plt Count 181 (150-450) K/mm3 MPV 11.2 H (6-9.5) fl Gran % 72.0 H (36.0-66.0) % Eos # (Auto) 0.09 (0-0.5) Absolute Lymphs (auto) 1.09 (1.0-4.6) Absolute Monos (auto) 0.45 (0.0-1.3) Lymphocytes % 18.5 L (24.0-44.0) % Monocytes % 7.7 (0.0-12.0) % Eosinophils % 1.5 (0.00-5.0) % Basophils % 0.3 (0.0-0.4) % Absolute Granulocytes 4.23 (1.4-6.9) Basophils # 0.02 (0-0.4) Sodium (137-145) mmol/L Potassium (3.5-5.1) mmol/L Chloride (98-107) mmol/L Carbon Dioxide (22-30) mmol/L Anion Gap (5-15) MEQ/L BUN (7-17) mg/dL Creatinine (0.52-1.04) mg/dL Estimated GFR ML/MIN Glucose (74-106) mg/dL Calcium (8.4-10.2) mg/dL Total Bilirubin (0.2-1.3) mg/dL AST (14-36) U/L ALT (0-35) U/L Alkaline Phosphatase (38-126) U/L Serum Total Protein (6.3-8.2) g/dL Albumin (3.5-5.0) g/dL Urine Color (YELLOW) Urine Appearance (CLEAR) Urine pH (5-6) Ur Specific Ethel (1.005-1.025) Urine Protein (Negative) Urine Ketones (NEGATIVE) Urine Blood (0-5) Reymundo/ul Urine Nitrite (NEGATIVE) Urine Bilirubin (NEGATIVE) Urine Urobilinogen (0-1) mg/dL Ur Leukocyte Esterase (NEGATIVE) Urine WBC (Auto) (0-5) /HPF Urine RBC (Auto) (0-2) /HPF U Epithel Cells (Auto) (FEW) /HPF Urine Bacteria (Auto) (NEGATIVE) /HPF Urine Mucus (Auto) (NEGATIVE) /HPF Urine Culture Reflexed (NO) Urine Glucose (NEGATIVE) mg/dL Stool Occult Blood (Negative) - Progress Progress: improved Progress Note: 05/07/19 14:39 Patient's OB ultrasound interuterine 24 weeks 1 day heart rate 152% unremarkable 143 cm of fluid Pelvic exam performed after pelvic ultrasound using sterile gloves and speculum. Normal female external genitalia. Small amount of white discharge. No bleeding. Cervix is closed. Cervix nontender. 05/07/19 14:42 Patient on a monitor for 2 hours patient with good variability, no abdominal contractions. Heart rate 140-150. Patient was given 1 L of normal saline. She is in no distress at this time. Hematest stool was negative. CBC white blood cell 5.9 hemoglobin 11.0 hematocrit 32.9 platelets 181 Urinalysis shows 50 gravity 1.023 pH 6.0 50 glucose 3-5 white cells negative nitrites trace of leukocyte Estrace Chemistry sodium 137 potassium 3.0 chloride 109 bicarbonate 20 BUN 4 creatinine 0.43 glucose 115 GC Chlamydia have been ordered on the urine. Wet prep has been ordered and obtained. Patient will be given potassium chloride 40 mg orally times one. patient was informed that potassium chloride was category C was felt that the patient should have the potassium in view of the potassium of 3.0 which was low. Patient is doing well plan to discharge patient once. wet prep GC Chlamydia are available. 05/07/19 14:48 - Departure Departure Disposition: Home Clinical Impression: Interuterine 24 weeks 1 day, reported rectal versus vaginal bleeding , Abdominal cramping Condition: Fair Critical Care Time: No Referrals: ANNMARIE ARREGUIN MD [Primary Care Provider] - Additional Instructions: Return Home. Plenty of fluids. clear fluids only 24 hours if abdominal pain. increase potassium in your diet. follow up with your family doctor/ global ceo doctor tomorrow, call and arrange follow up appointment.. Return for acute distress or for severe symptoms.
[2019-05-07] MEDS ORDERED: Sodium Chloride 0.9% 1000 ML 1,000 ML ONE (13:31)
[2019-05-07 13:38] LABS: BASOPHIL % 0.3 % (0.0-0.4); Basophil (Absolute #) 0.02 (0-0.4); Eosinophil % 1.5 % (0.00-5.0); Eosinophil (Absolute #) 0.09 (0-0.5); Granulocyte Absolute (ANC) 4.23 (1.4-6.9); Hematocrit 32.9 % (35-47); Lymphocyte (Absolute #) 1.09 (1.0-4.6); Lymphocytes % 18.5 % (24.0-44.0); Mean Cell Volume 75.6 fl (78-100); Mean Corpuscular Hgb Concent. 33.4 g/dl (32-36); Mean Platelet Volume 11.2 fl (6-9.5); Monocyte (Absolute #) 0.45 (0.0-1.3); Monocytes % 7.7 % (0.0-12.0); Platelet Count 181 K/mm3 (150-450); Red Blood Count 4.35 M/mm3 (4.1-5.4); Red Cell Distribution Width 14.2 % (11.5-14.0); White Blood Count 5.9 K/mm3 (4.0-10.5)
[2019-05-07 13:55] LABS: Mean Corpuscular Hemoglobin 25.2 pg (26-32)
[2019-05-07 13:57] LABS: ALBUMIN 2.9 g/dL (3.5-5.0); ALKALINE PHOSPHATASE 53 U/L (38-126); ANION GAP 11.3 MEQ/L (5-15); BLOOD UREA NITROGEN 4 mg/dL (7-17); CHLORIDE 109 mmol/L (98-107); Calcium 8.8 mg/dL (8.4-10.2); Carbon Dioxide 20 mmol/L (22-30); Creatinine 1 0.43 mg/dL (0.52-1.04); Glucose 115 mg/dL (74-106); SGOT/AST 16 U/L (14-36); SGPT/ALT 16 U/L (0-35); SODIUM 137 mmol/L (137-145)
[2019-05-07 14:15] LABS: Appearance SLIGHTLY CLOUDY (CLEAR); Bacteria MODERATE /HPF (NEGATIVE); Bilirubin NEGATIVE (NEGATIVE); Blood NEGATIVE Ery/ul (0-5); Epithelial Cells RARE /HPF (FEW); Glucose 50 mg/dL (NEGATIVE); Ketones NEGATIVE (NEGATIVE); Leukocyte Esterase TRACE (NEGATIVE); Mucus SLIGHT /HPF (NEGATIVE); Nitrite NEGATIVE (NEGATIVE); Protein,Urine Dip NEGATIVE (Negative); RBC 0-2 /HPF (0-2); Specific Gravity 1.023 (1.005-1.025); Urobilinogen NEGATIVE mg/dL (0-1)
[2019-05-07 14:45] VITALS: O2SAT 97
[2019-05-07] MEDS ORDERED: Klor Con 10 MEQ PO ONE ×2 (14:47→14:53)
[2019-05-07 14:51] VITALS: BP 116/49; PULSE 67
[2019-05-07 14:52] LABS: Bacteria Moderate; Clue Cells None Seen; Red Blood Cells Rare; Trichomonas None Seen; White Blood Cells Rare; Yeast None Seen
[2019-05-07 15:45] LABS: CHLAMYDIA URINE NEGATIVE (NEGATIVE); GC URINE NEGATIVE (NEGATIVE)
--- NOTE | 2019-05-07 21:34 | XRAY ---
Indication: Cramping and spotting. Two-dimensional OB ultrasound performed. Comparison: March 28, 2019. Again there is a single viable intrauterine in breech presentation. heart rate 152 bpm. anatomy previously documented. Visualized stomach, kidneys, and bladder unremarkable. Again posterior placenta without abruption/previa. BPD measures 5.87 cm corresponding to 24 weeks 0 days. HC measures 21.22 cm corresponding to 23 weeks 2 days. AC measures 19.93 cm corresponding to 24 weeks 4 days. FL measures 4.32 cm corresponding to 24 weeks 1 day. VIRGIL is 14.3 cm. Impression: Again single viable intrauterine with mean gestational age 24 weeks 0 days. Normal progression of . No new/acute findings. Comment: Preliminary report was given.
== END 2019-05-07 15:00 | disposition home or self-care (01) ==
LOC: ED 12:24
DX: O26.852 Spotting complicating pregnancy, second trimester (principal)
CPT/HCPCS: 36000; 36415; 76805; 80053; 81001; 82272; 85025; 87086; 87210; 87491; 87591; 96360; 99284; A9270-GY

== ENCOUNTER 2019-05-13 10:54 | Observation (INO) | payer OTHER ==
[2019-05-13 12:21] LABS: Appearance SLIGHTLY CLOUDY (CLEAR); Bacteria RARE /HPF (NEGATIVE); Bilirubin NEGATIVE (NEGATIVE); Blood NEGATIVE Ery/ul (0-5); Epithelial Cells RARE /HPF (FEW); Glucose NEGATIVE (NEGATIVE); Ketones TRACE (NEGATIVE); Leukocyte Esterase NEGATIVE (NEGATIVE); Mucus SLIGHT /HPF (NEGATIVE); Nitrite NEGATIVE (NEGATIVE); Protein,Urine Dip NEGATIVE (Negative); Specific Gravity 1.019 (1.005-1.025); Urobilinogen NEGATIVE mg/dL (0-1); WBC 0-2 /HPF (0-5)
[2019-05-13] MEDS ORDERED: Sodium Chloride 0.9% 1000 ML 1,000 ML IV STA (12:36)
[2019-05-13] MEDS ORDERED: Celestone Soluspan 6MG/ML IM ONE (17:01)
[2019-05-13] MEDS ORDERED: PROCARDIA 10 MG ONE (17:26)
[2019-05-13] MEDS: Lactated Ringers 1,000 ML IV SCH (17:29)
[2019-05-13] MEDS: TYLENOL 325 MG PO PRN (19:44)
[2019-05-13] MEDS ORDERED: PROCARDIA 10 MG PO ONE (20:57)
[2019-05-13] MEDS ORDERED: MORPHINE SULFATE 4 MG INJ IV ONE (22:16)
[2019-05-13] MEDS ORDERED: Phenergan 25 MG INJ IV ONE (22:17)
[2019-05-14] MEDS: Lactated Ringers 1,000 ML IV SCH ×3 (01:03→18:04)
--- NOTE | 2019-05-14 07:41 | XRAY ---
Indication: Contractions. Evaluate cervical length. Limited OB ultrasound performed to evaluate cervical length. Cervix is closed and measures 4.5 cm in length. Comment: Preliminary report was given.
[2019-05-14] MEDS: Pepcid 20 MG PO SCH (09:36)
[2019-05-14] MEDS ORDERED: PROCARDIA 10 MG PO SCH (12:45)
[2019-05-14 15:24] LABS: Appearance CLEAR (CLEAR); Bacteria RARE /HPF (NEGATIVE); Bilirubin NEGATIVE (NEGATIVE); Blood NEGATIVE Ery/ul (0-5); Epithelial Cells RARE /HPF (FEW); Glucose 150 mg/dL (NEGATIVE); Ketones NEGATIVE (NEGATIVE); Leukocyte Esterase NEGATIVE (NEGATIVE); Nitrite NEGATIVE (NEGATIVE); Protein,Urine Dip NEGATIVE (Negative); Specific Gravity 1.004 (1.005-1.025); Urobilinogen NEGATIVE mg/dL (0-1); WBC 0-2 /HPF (0-5)
[2019-05-14 15:29] LABS: INR 1.05 (0.8-3.0); PROTIME 11.9 SECONDS (9.95-12.35)
[2019-05-14] MEDS ORDERED: Magnesium Sulfate 40 Gm/1000 Ml H2O Premix*** 1,000 ML IV SCH (15:30)
[2019-05-14 15:31] LABS: BASOPHIL % 0.1 % (0.0-0.4); Basophil (Absolute #) 0.01 (0-0.4); Eosinophil % 0.1 % (0.00-5.0); Eosinophil (Absolute #) 0.01 (0-0.5); Granulocyte Absolute (ANC) 9.04 (1.4-6.9); Granulocytes % 84.8 % (36.0-66.0); Hematocrit 36.7 % (35-47); Hemoglobin 12.1 gm/dl (12.0-16.0); Lymphocyte (Absolute #) 1.04 (1.0-4.6); Lymphocytes % 9.8 % (24.0-44.0); Mean Cell Volume 75.1 fl (78-100); Mean Corpuscular Hemoglobin 24.7 pg (26-32); Mean Platelet Volume 11.1 fl (6-9.5); Monocyte (Absolute #) 0.55 (0.0-1.3); Monocytes % 5.2 % (0.0-12.0); Platelet Count 227 K/mm3 (150-450); Red Blood Count 4.89 M/mm3 (4.1-5.4); White Blood Count 10.7 K/mm3 (4.0-10.5)
[2019-05-14 15:32] LABS: PTT 28.3 SECONDS (25.3-37.0)
[2019-05-14 15:33] LABS: ALBUMIN 3.4 g/dL (3.5-5.0); ALKALINE PHOSPHATASE 62 U/L (38-126); ANION GAP 8.8 MEQ/L (5-15); BLOOD UREA NITROGEN 4 mg/dL (7-17); CHLORIDE 112 mmol/L (98-107); Carbon Dioxide 20 mmol/L (22-30); Creatinine 1 0.38 mg/dL (0.52-1.04); Glucose 153 mg/dL (74-106); Potassium 3.8 mmol/L (3.5-5.1); SGOT/AST 14 U/L (14-36); SGPT/ALT 14 U/L (0-35); SODIUM 137 mmol/L (137-145); Total Protein 6.6 g/dL (6.3-8.2)
[2019-05-14 15:44] LABS: Amphetamine,Urine NEGATIVE (NEGATIVE); Barbiturate,Urine NEGATIVE (NEGATIVE); Benzodiazepine,Urine NEGATIVE (NEGATIVE); Cocaine,Urine NEGATIVE (NEGATIVE); Methadone,Urine NEGATIVE (NEGATIVE); Opiate,Urine NEGATIVE (NEGATIVE); PCP,Urine NEGATIVE (NEGATIVE); THC,Urine NEGATIVE (NEGATIVE)
[2019-05-14] MEDS: TYLENOL 325 MG PO PRN (16:33)
[2019-05-14] MEDS ORDERED: Adalat CC 30 MG TABLET PO ONE (17:00)
[2019-05-14] MEDS ORDERED: Celestone Soluspan 6MG/ML IM SCH (17:30)
[2019-05-14] MEDS ORDERED: Calcium Gluconate 10% 1000 MG IV ONE ×2 (17:55→18:00)
[2019-05-15 04:10] LABS: Basophil (Absolute #) 0 (0-0.4); Eosinophil (Absolute #) 0 (0-0.5); Granulocyte Absolute (ANC) 8.16 (1.4-6.9); Granulocytes % 88.1 % (36.0-66.0); Hematocrit 33.9 % (35-47); Lymphocyte (Absolute #) 0.87 (1.0-4.6); Lymphocytes % 9.4 % (24.0-44.0); Mean Cell Volume 76.4 fl (78-100); Mean Corpuscular Hgb Concent. 32.4 g/dl (32-36); Monocyte (Absolute #) 0.23 (0.0-1.3); Monocytes % 2.5 % (0.0-12.0); Platelet Count 213 K/mm3 (150-450); Red Blood Count 4.44 M/mm3 (4.1-5.4); Red Cell Distribution Width 14.1 % (11.5-14.0); White Blood Count 9.3 K/mm3 (4.0-10.5)
[2019-05-15 04:12] LABS: Mean Corpuscular Hemoglobin 24.7 pg (26-32)
[2019-05-15 04:16] LABS: ALKALINE PHOSPHATASE 67 U/L (38-126); ANION GAP 8.3 MEQ/L (5-15); BLOOD UREA NITROGEN 5 mg/dL (7-17); CHLORIDE 110 mmol/L (98-107); Calcium 7.2 mg/dL (8.4-10.2); Carbon Dioxide 21 mmol/L (22-30); Creatinine 1 0.42 mg/dL (0.52-1.04); Glucose 146 mg/dL (74-106); Potassium 4.1 mmol/L (3.5-5.1); SGOT/AST 12 U/L (14-36); SGPT/ALT 13 U/L (0-35); SODIUM 135 mmol/L (137-145); Total Protein 5.9 g/dL (6.3-8.2)
[2019-05-15] MEDS: Lactated Ringers 1,000 ML IV SCH (07:22)
[2019-05-15 08:15] VITALS: O2SAT 98
[2019-05-15 12:01] VITALS: PULSE 72
[2019-05-15] MEDS: Pepcid 20 MG PO SCH (12:01)
[2019-05-15] MEDS ORDERED: PROCARDIA 10 MG PO ONE (13:30)
[2019-05-15] MEDS ORDERED: BRETHINE 1 MG/ML SQ ONE (15:49)
[2019-05-15 16:13] VITALS: BP 127/59
--- NOTE | 2019-05-15 16:22 | PCM.DS ---
Discharge Summary Date of Admission: 05/13/19 11:00 Admitting Physician: JENNIFER BHAKTA Consults: Consults on Case 05/14/19 15:02 Notify Physician Primary Care Provider: ANNMARIE ARREGUIN ERENDIRA Allergies Allergies ketorolac [From Toradol] Allergy (Severe, Verified 05/13/19 22:39) Hives latex Allergy (Severe, Verified 05/13/19 22:39) STOPPED BREATHING prochlorperazine [From Compazine] Allergy (Severe, Verified 05/13/19 22:39) Hives and shakes Influenza Virus Vaccines Allergy (Mild, Verified 05/13/19 22:39) headache vomiting levothyroxine sodium [From Synthroid] Allergy (Mild, Verified 05/13/19 22:39) Migranes methylphenidate [From Ritalin] Allergy (Verified 05/13/19 22:39) migranes aspirin Adverse Reaction (Mild, Verified 05/13/19 22:39) Vomiting medidate Adverse Reaction (Mild, Uncoded 05/13/19 22:39) [facility] Summary - Hospital Course Hospital Course: 28yo at 25 2/7 wks EGA here with c/o contractions, was on MgSO4 overnight with no contractions. rec'd celestone x 2, mg drip was stopped this morning. contraction restarted every 3-4 minutes patient rating 6/10, spoke with Dr Sal CHATMAN hospitalist at [facility] and he agrees to restart mg and transfer to [facility] for higher level of care. discussed with patient and she agrees. - Vitals & Intake/Output Vital Signs: Vital Signs Temperature 97.6 F 05/15/19 16:00 Pulse Rate 72 05/15/19 12:00 Respiratory Rate 22 05/15/19 16:00 Blood Pressure 127/59 05/15/19 16:00 O2 Sat by Pulse Oximetry 98 05/15/19 08:00 Intake & Output: Intake & Output 05/13/19 05/14/19 05/15/19 05/16/19 11:59 11:59 11:59 11:59 Intake Total 7925 3613 Output Total 8563 Balance 4559 -1113 Weight 126.099 kg - Lab Result Diagrams: 05/15/19 03:30 05/15/19 03:30 Lab Results-Last 24 Hrs: Lab Results-Last 24 Hours 05/14/19 05/15/19 05/15/19 Range/Units 21:13 03:28 03:30 WBC 9.3 (4.0-10.5) K/mm3 RBC 4.44 (4.1-5.4) M/mm3 Hgb 11.0 L (12.0-16.0) gm/dl Hct 33.9 L (35-47) % MCV 76.4 L (78-100) fl MCH 24.7 L (26-32) pg MCHC 32.4 (32-36) g/dl RDW 14.1 H (11.5-14.0) % Plt Count 213 (150-450) K/mm3 MPV 11.0 H (6-9.5) fl Gran % 88.1 H (36.0-66.0) % Eos # (Auto) 0 (0-0.5) Absolute Lymphs (auto) 0.87 L (1.0-4.6) Absolute Monos (auto) 0.23 (0.0-1.3) Lymphocytes % 9.4 L (24.0-44.0) % Monocytes % 2.5 (0.0-12.0) % Eosinophils % 0.0 (0.00-5.0) % Basophils % 0.0 (0.0-0.4) % Absolute Granulocytes 8.16 H (1.4-6.9) Basophils # 0 (0-0.4) Sodium (137-145) mmol/L Potassium (3.5-5.1) mmol/L Chloride (98-107) mmol/L Carbon Dioxide (22-30) mmol/L Anion Gap (5-15) MEQ/L BUN (7-17) mg/dL Creatinine (0.52-1.04) mg/dL Estimated GFR ML/MIN Glucose (74-106) mg/dL Calcium (8.4-10.2) mg/dL Magnesium 4.0 H 4.5 H (1.6-2.3) mg/dL Total Bilirubin (0.2-1.3) mg/dL AST (14-36) U/L ALT (0-35) U/L Alkaline Phosphatase (38-126) U/L Serum Total Protein (6.3-8.2) g/dL Albumin (3.5-5.0) g/dL 05/15/19 Range/Units 03:30 WBC (4.0-10.5) K/mm3 RBC (4.1-5.4) M/mm3 Hgb (12.0-16.0) gm/dl Hct (35-47) % MCV (78-100) fl MCH (26-32) pg MCHC (32-36) g/dl RDW (11.5-14.0) % Plt Count (150-450) K/mm3 MPV (6-9.5) fl Gran % (36.0-66.0) % Eos # (Auto) (0-0.5) Absolute Lymphs (auto) (1.0-4.6) Absolute Monos (auto) (0.0-1.3) Lymphocytes % (24.0-44.0) % Monocytes % (0.0-12.0) % Eosinophils % (0.00-5.0) % Basophils % (0.0-0.4) % Absolute Granulocytes (1.4-6.9) Basophils # (0-0.4) Sodium 135 L (137-145) mmol/L Potassium 4.1 (3.5-5.1) mmol/L Chloride 110 H (98-107) mmol/L Carbon Dioxide 21 L (22-30) mmol/L Anion Gap 8.3 (5-15) MEQ/L BUN 5 L (7-17) mg/dL Creatinine 0.42 L (0.52-1.04) mg/dL Estimated GFR > 60.0 ML/MIN Glucose 146 H (74-106) mg/dL Calcium 7.2 L D (8.4-10.2) mg/dL Magnesium (1.6-2.3) mg/dL Total Bilirubin 0.20 (0.2-1.3) mg/dL AST 12 L (14-36) U/L ALT 13 (0-35) U/L Alkaline Phosphatase 67 (38-126) U/L Serum Total Protein 5.9 L (6.3-8.2) g/dL Albumin 3.0 L (3.5-5.0) g/dL Micro Results-Entire Visit: Microbiology 05/14/19 16:00 Urine Culture - Preliminary Catherized NO GROWTH TO DATE - Radiology Exams Ordered Rad Exams-Entire Visit: Radiology Procedures Category Date Time Status OB TRANSVAGINAL [US] Stat Exams 05/13/19 19:42 Completed Discharge Exam General Appearance: no apparent distress, alert, obese Respiratory Exam: normal breath sounds, lungs clear, No respiratory distress Cardiovascular Exam: regular rate/rhythm, normal heart sounds Gastrointestinal/Abdomen Exam: soft, No tenderness, No mass Extremity Exam: normal inspection, normal range of motion Skin Exam: normal color, warm, dry Final Diagnosis/Problem List - Final Discharge Diagnosis/Problem (1) contractions Current Visit: Yes Status: Acute Assessment & Plan: restart Mg and transfer to [facility], discussed with patient and she agrees at this time Code(s): O47.9 - FALSE LABOR, UNSPECIFIED - Discharge Disposition: DC TO [facility] Condition: Stable Prescriptions: No Action Vits W-Ca,Fe,FA(<1Mg) [] 1 tab PO HS Ranitidine HCl [Zantac 75] 75 mg PO DAILY
[2019-05-15] MEDS ORDERED: Magnesium Sulfate 40 Gm/1000 Ml H2O Premix*** 1,000 ML IV SCH (16:30)
== END 2019-05-15 17:20 | disposition home or self-care (01) ==
LOC: UNDOADMOB 10:54 → OB 10:54
PROVIDERS: ADMIT Family Medicine; ATTEND Family Medicine
DX: O60.02 Preterm labor without delivery, second trimester (principal); Z3A.25 25 weeks gestation of pregnancy
CPT/HCPCS: 36415; 76817; 80053; 80307; 81001; 83735; 83986; 85025; 85610; 85730; 87086; 96372; G0378; J0610; J0702; J2270; J2550; A9270-GY

== ENCOUNTER 2019-09-17 17:03 | Emergency (ER) | payer OTHER ==
--- NOTE | 2019-09-17 17:29 | ERPHSYRPT ---
- History of Present Illness Time Seen by Provider: 09/17/19 17:28 Historian: patient Exam Limitations: no limitations Patient Subjective Stated Complaint: pt here for pain to center of chest that goes througth to back for about an hour now, also co sob all the time, worse with movement since last night. no fever or cough Triage Nursing Assessment: pt alert, walked in, resp easy,skin w/d/p. chest clear, no edema noted, chest clear Physician History: The patient is a 29-year-old female with a past medical history significant for asthma and anxiety presents with a chief complaint of chest pain. hher pain reportedly started having a half to 2 hours ago. She states that she was asleep earlier today and then awoke and was in a car with her grandmother when she started to experience chest pain. She states that it feels as if a "hole in my chest". The pain is constant mild to moderate severity and associated with shortness of breath. The pain reportedly radiates to her back. She states she's been under a lot of stress recently because she just recently lost her youngest child to a congenital She denies history of pulmonary embolism, DVT, recent surgery within the last 90 days, and estrogen use. The patient also denies cough, specifically hemoptysis. She has not taken anything for pain prior to arrival. Timing/Duration: today Activities at Onset: emotional stress, rest Quality: stabbing, other (Hole) Chest Pain Radiation: back Severity of Pain-Max: mild Severity of Pain-Current: mild Modifying Factors: Improves With: nothing Aspirin Treatment Today: no aspirin today Allergies/Adverse Reactions: ketorolac [From Toradol] Allergy (Severe, Verified 09/17/19 17:15) Hives latex Allergy (Severe, Verified 09/17/19 17:15) STOPPED BREATHING prochlorperazine [From Compazine] Allergy (Severe, Verified 09/17/19 17:15) Hives and shakes Influenza Virus Vaccines Allergy (Mild, Verified 09/17/19 17:15) headache vomiting levothyroxine sodium [From Synthroid] Allergy (Mild, Verified 09/17/19 17:15) Migranes methylphenidate [From Ritalin] Allergy (Verified 09/17/19 17:15) migranes aspirin Adverse Reaction (Mild, Verified 09/17/19 17:15) Vomiting medidate Adverse Reaction (Mild, Uncoded 09/17/19 17:15) VOMTIING Home Medications: Escitalopram Oxalate [Lexapro] 10 mg DAILY 09/17/19 [History] Lorazepam 1 mg [Ativan 1 MG] 1 mg BID 09/17/19 [History] Hx Tetanus, Diphtheria Vaccination/Date Given: Yes Hx Influenza Vaccination/Date Given: No Hx Pneumococcal Vaccination/Date Given: No Immunizations Up to Date: Yes - Review of Systems Constitutional: No Symptoms Eyes: No Symptoms Ears, Nose, & Throat: Nose Pain Respiratory: Dyspnea, No Cough Cardiac: Chest Pain Abdominal/Gastrointestinal: No Nausea, No Vomiting Musculoskeletal: No Symptoms Skin: No Symptoms Neurological: No Symptoms All Other Systems: Reviewed and Negative - Past Medical History Pertinent Past Medical History: Yes Neurological History: Migraines ENT History: No Pertinent History Cardiac History: Arrhythmia, Other Respiratory History: Asthma Endocrine Medical History: Hypothyroidism Musculoskeletal History: No Pertinent History GI Medical History: No Pertinent History History: No Pertinent History Psycho-Social History: Attention Deficit Disorder Female Reproductive Disorders: No Pertinent History Other Medical History: Bradycardia, hypotension (usual 90s/60s), post depression 2019 - Past Surgical History Past Surgical History: Yes Neuro Surgical History: No Pertinent History Cardiac: No Pertinent History Respiratory: No Pertinent History Gastrointestinal: Cholecystectomy Genitourinary: No Pertinent History Musculoskeletal: No Pertinent History Female Surgical History: Section Other Surgical History: c section x3 - Social History Smoking Status: Former smoker How long have you smoked: 8 years Exposure to second hand smoke: No Drug Use: none Patient Lives Alone: No Significant Family History: cancer (colon/breast), diabetes, other (Gall bladder disease) - Female History Hx Last Menstrual Period: sep 10 Hx Now: No - Nursing Vital Signs Nursing Vital Signs: Initial Vital Signs Temperature 97 F 09/17/19 17:07 Pulse Rate 68 09/17/19 17:07 Respiratory Rate 16 09/17/19 17:07 Blood Pressure 125/84 09/17/19 17:07 O2 Sat by Pulse Oximetry 98 09/17/19 17:07 Pain Scale Pain Intensity 6 - Physical Exam General Appearance: no apparent distress, alert Eye Exam: PERRL/EOMI, eyes nml inspection Ears, Nose, Throat Exam: normal ENT inspection, moist mucous membranes, pharyngeal erythema Neck Exam: normal inspection Respiratory Exam: normal breath sounds, lungs clear, airway intact, No chest tenderness, No respiratory distress, No diminished breath sounds, No accessory muscle use Cardiovascular Exam: regular rate/rhythm, normal heart sounds, normal peripheral pulses, capillary refill <2 sec, capillary refill 2-3 sec, capillary refill >3 sec, other (Radial pulse 2+ bilaterally DP 2+ bilaterally) Pelvic Exam: not done Rectal Exam: deferred Back Exam: normal inspection, No CVA tenderness Extremity Exam: normal inspection Neurologic Exam: alert, oriented x 3, cooperative Skin Exam: normal color, warm, dry, No cyanosis, No diaphoresis SpO2: 98 O2 Delivery: Room Air - Course EKG Interpreted by Me: RATE, Sinus Rhythm, NORMAL AXIS, NORMAL INTERVALS, NORMAL QRS, NORMAL ST-T, Other (EKG read at 17:09) - Radiology Exams Chest X-ray Interpretation: Interpreted by me, Reviewed by me, Negative (No acute process identified ) Ordered Tests: Active Orders 24 hr Category Date Time Status EKG-ER Only STAT Care 09/17/19 17:40 Active IV Insertion STAT Care 09/17/19 18:01 Active CHEST 2 VIEWS (PA AND LAT) Stat Exams 09/17/19 17:41 Taken CBC W DIFF Stat Lab 09/17/19 17:45 Completed HCG,QUALITATIVE URINE Stat Lab 09/17/19 18:43 Completed Medication Summary Discontinued Medications Generic Name Dose Route Start Last Admin Trade Name Alis PRN Reason Stop Dose Admin Acetaminophen 1,000 mg 09/17/19 17:43 09/17/19 17:48 Tylenol Extra Strength 500 Mg PO 09/17/19 17:44 1,000 mg STAT STA Administration Acetaminophen Confirm 09/17/19 17:47 Tylenol Extra Strength 500 Mg Administered 09/17/19 17:48 Dose 1,000 mg .ROUTE .STK-MED ONE Ibuprofen 400 mg 09/17/19 17:43 09/17/19 17:47 Motrin 400 Mg PO 09/17/19 17:44 400 mg STAT ONE Administration Ibuprofen Confirm 09/17/19 17:47 Motrin 400 Mg Administered 09/17/19 17:48 Dose 400 mg .ROUTE .STK-MED ONE Lab/Rad Data: Laboratory Result Diagrams 09/17/19 17:45 Laboratory Results 1109/17/19 09/17/19 Range/Units 18:43 17:45 17:45 WBC 5.6 (4.0-10.5) K/mm3 RBC 5.25 (4.1-5.4) M/mm3 Hgb 12.4 (12.0-16.0) gm/dl Hct 38.8 (35-47) % MCV 73.9 L (78-100) fl MCH 23.6 L (26-32) pg MCHC 32.0 (32-36) g/dl RDW 15.2 H (11.5-14.0) % Plt Count 251 (150-450) K/mm3 MPV 10.6 H (6-9.5) fl Gran % 55.3 (36.0-66.0) % Eos # (Auto) 0.14 (0-0.5) Absolute Lymphs (auto) 1.98 (1.0-4.6) Absolute Monos (auto) 0.36 (0.0-1.3) Lymphocytes % 35.3 (24.0-44.0) % Monocytes % 6.4 (0.0-12.0) % Eosinophils % 2.5 (0.00-5.0) % Basophils % 0.5 (0.0-0.4) % Absolute Granulocytes 3.10 (1.4-6.9) Basophils # 0.03 (0-0.4) Troponin 0.00 (0.00-0.03) ng/mL Urine HCG, Qual NEGATIVE (Negative) he - Progress Air Movement: good Progress Note: 09/17/19 18:14 The patient's EKG as compared to an EKG datedJuly 2017 and appear similar. 09/17/19 18:20 I currently have a low gestalt for PE and the patient is PERC negative. The patient's troponin was wnl and with a EKG with no evidence of acute myocardial ischemia or injury or repolarization changes the HEART Score was calculated to be a 1 at most. - Departure Departure Disposition: Home Clinical Impression: Atypical chest pain Condition: Stable Critical Care Time: No Referrals: ANNMARIE ARREGUIN MD [Primary Care Provider] - Instructions: Atypical Chest Pain Additional Instructions: Please follow-up with your primary care provider as soon as possible and continue to take your medication as prescribe. Please take acetaminophen and or ibuprofen as needed for pain. You can purchase this medication over-the- counter. Please take this medication as instructed. Plan of Treatment: nontoxic in appearance. Labs, chest x-ray and EKG were reviewed. The patient' s HEART Score is essentially 0 to 1 at most. PERC negative. Chest seems atypical for ACS and I suspect her symptoms may be anxiety related given her recent loss of a child. No evidence of changes consistent with takotsubo on her EKG and I do not think the patient is suffering from this currently. Ultimately, the patient was discharged home to f/u with her PCP. ED return precautions for CP given. She agreed with and verbally understood the discharge plan.
[2019-09-17] MEDS: MOTRIN 400 MG PO ONE (17:47)
[2019-09-17] MEDS ORDERED: TYLENOL EXTRA STRENGTH 500 MG ONE (17:47)
[2019-09-17] MEDS ORDERED: MOTRIN 400 MG ONE (17:47)
[2019-09-17] MEDS: TYLENOL EXTRA STRENGTH 500 MG PO STA (17:48)
[2019-09-17 17:50] LABS: BASOPHIL % 0.5 % (0.0-0.4); Basophil (Absolute #) 0.03 (0-0.4); Eosinophil % 2.5 % (0.00-5.0); Eosinophil (Absolute #) 0.14 (0-0.5); Hematocrit 38.8 % (35-47); Hemoglobin 12.4 gm/dl (12.0-16.0); Lymphocyte (Absolute #) 1.98 (1.0-4.6); Lymphocytes % 35.3 % (24.0-44.0); Mean Cell Volume 73.9 fl (78-100); Mean Corpuscular Hemoglobin 23.6 pg (26-32); Mean Platelet Volume 10.6 fl (6-9.5); Monocyte (Absolute #) 0.36 (0.0-1.3); Monocytes % 6.4 % (0.0-12.0); Neutrophil % 55.3 % (36.0-66.0); Platelet Count 251 K/mm3 (150-450); Red Blood Count 5.25 M/mm3 (4.1-5.4); Red Cell Distribution Width 15.2 % (11.5-14.0); White Blood Count 5.6 K/mm3 (4.0-10.5)
[2019-09-17 18:20] VITALS: O2SAT 98
[2019-09-17 18:59] VITALS: BP 122/75; PULSE 67
--- NOTE | 2019-09-18 08:42 | XRAY ---
Indication: Chest pain and short of breath. Comparison: June 10, 2017. PA/lateral chest again demonstrates normal heart, lungs, and bony thorax.
== END 2019-09-17 19:00 | disposition home or self-care (01) ==
LOC: ED 17:03
DX: R07.89 Other chest pain (principal)
CPT/HCPCS: 36000; 36415; 71046; 84484; 84703; 85025; 93005; 99284; A9270-GY

== ENCOUNTER 2020-04-14 16:36 | Emergency (ER) | payer OTHER ==
[2020-04-14] MEDS ORDERED: TORAdol 30 mg Injection IM ONE (18:00)
--- NOTE | 2020-04-14 18:08 | ERPHSYRPT ---
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 Patient reports she was playing outside and might have accidentally bent her foot with sudden onset right medial distal foot sharp nature pain especially with weightbearing and movements at big toe associated with mild swelling. Better with being still. Patient denies any direct trauma. she is able to walk on her heel and lateral edge of foot. No swelling or pain in the ankle. Method of Injury: unknown Occurred: hours ago (1) Quality: constant, sharpness Severity of Pain-Max: moderate Severity of Pain-Current: mild Lower Extremities Pain: foot: right Modifying Factors: Improves With: immobilization, movement, rest Associated Symptoms: none Allergies/Adverse Reactions: ketorolac [From Toradol] Allergy (Severe, Verified 04/14/20 17:35) Hives latex Allergy (Severe, Verified 04/14/20 17:35) STOPPED BREATHING prochlorperazine [From Compazine] Allergy (Severe, Verified 04/14/20 17:35) Hives and shakes Influenza Virus Vaccines Allergy (Mild, Verified 04/14/20 17:35) headache vomiting levothyroxine sodium [From Synthroid] Allergy (Mild, Verified 04/14/20 17:35) Migranes methylphenidate [From Ritalin] Allergy (Verified 04/14/20 17:35) migranes aspirin Adverse Reaction (Mild, Verified 04/14/20 17:35) Vomiting medidate Adverse Reaction (Mild, Uncoded 04/14/20 17:35) VOMTIING Home Medications: Thyroid,Pork [[place] Thyroid] 15 mg pe PO DAILY 04/14/20 [History] Topiramate 25 mg [Topamax 25 MG] 25 mg PO DAILY 04/14/20 [History] Hx Tetanus, Diphtheria Vaccination/Date Given: Yes Hx Influenza Vaccination/Date Given: No Hx Pneumococcal Vaccination/Date Given: No Travel Risk - International Travel Have you traveled outside of the country in past 3 weeks: No - Coronavirus Screening Are you exhibiting any of the following symptoms?: No Close contact with a COVID-19 positive Pt in past 14-21 Days: No - Review of Systems Constitutional: No Symptoms Eyes: No Symptoms Ears, Nose, & Throat: No Symptoms Respiratory: No Symptoms Cardiac: No Symptoms Abdominal/Gastrointestinal: No Symptoms Skin: No Symptoms Neurological: No Symptoms Psychological: No Symptoms Endocrine: No Symptoms Hematologic/Lymphatic: No Symptoms - Past Medical History Pertinent Past Medical History: Yes Neurological History: Migraines ENT History: No Pertinent History Cardiac History: Arrhythmia, Other Respiratory History: Asthma Endocrine Medical History: Hypothyroidism Musculoskeletal History: No Pertinent History GI Medical History: No Pertinent History History: No Pertinent History Psycho-Social History: Attention Deficit Disorder Female Reproductive Disorders: No Pertinent History Other Medical History: Bradycardia, hypotension (usual 90s/60s), post depression 2019 - Past Surgical History Past Surgical History: Yes Neuro Surgical History: No Pertinent History Cardiac: No Pertinent History Respiratory: No Pertinent History Gastrointestinal: Cholecystectomy Genitourinary: No Pertinent History Musculoskeletal: No Pertinent History Female Surgical History: Section Other Surgical History: c section x3 - Social History Smoking Status: Former smoker How long have you smoked: 8 years Exposure to second hand smoke: No Drug Use: none Patient Lives Alone: No Significant Family History: cancer (colon/breast), diabetes, other (Gall bladder disease) - Female History Hx Last Menstrual Period: 03/24/20 Hx Now: No - Nursing Vital Signs Nursing Vital Signs: Initial Vital Signs Temperature 98.2 F 04/14/20 17:28 Pulse Rate 71 04/14/20 17:28 Respiratory Rate 18 04/14/20 17:28 Blood Pressure 138/96 04/14/20 17:28 O2 Sat by Pulse Oximetry 97 04/14/20 17:28 Pain Scale Pain Intensity 7 - Physical Exam General Appearance: no apparent distress Neck Exam: normal inspection, full range of motion Cardiovascular/Respiratory Exam: normal breath sounds, regular rate/rhythm Ankle Exam: bilateral ankle: non-tender, normal inspection, normal range of motion, no evidence of injury Foot Exam: right foot: bone tenderness (Medial distal half of first metatarsal. Reproducible with movements at metatarsophalangeal joint.), limited range of motion, pain, left foot: non-tender, normal range of motion, bilateral foot: normal inspection, no evidence of injury Neuro/Tendon Exam: normal sensation, normal motor functions Mental Status Exam: alert, oriented x 3, cooperative Skin Exam: normal color SpO2 Interpretation: normal SpO2: 97 O2 Delivery: Room Air - Course EKG Interpreted by Me: RATE Ordered Tests: Active Orders 24 hr Category Date Time Status FOOT (MINIMUM 3 VIEWS) Stat Exams 04/14/20 Ordered Medication Summary Discontinued Medications Generic Name Dose Route Start Last Admin Trade Name Freq PRN Reason Stop Dose Admin Hydrocodone Bitart/Acetaminophen 1 tab 04/14/20 18:12 04/14/20 18:17 [place] 5/325 Mg PO 04/14/20 18:13 1 tab STAT ONE Administration Hydrocodone Bitart/Acetaminophen Confirm 04/14/20 18:15 [place] 5/325 Mg Administered 04/14/20 18:16 Dose 1 tab .ROUTE .STK-MED ONE Ketorolac Tromethamine 30 mg 04/14/20 18:00 04/14/20 18:20 Toradol 30 Mg Injection IM 04/14/20 18:01 Not Given STAT ONE - Progress Progress: improved, pain not gone completely, re-examined Progress Note: 04/14/20 she is given norco for pain, on reevaluation pain is much better. X- rays ruled out fracture dislocation. I believe patient has ligamentous strain/ sprain. Recommended soft postop shoe and outpatient follow-up with Ortho. Needed. - Departure Departure Disposition: Home Clinical Impression: Sprain of foot, right Qualifiers: Encounter type: initial encounter Qualified Code(s): S93.601A - Unspecified sprain of right foot, initial encounter Condition: Stable Critical Care Time: No Referrals: YESICA MARADIAGA MD [Primary Care Provider] - Follow Up with PCP/3 days RUBEN SANTOS NP [NON-STAFF PHY W/O PRIVILEGES] - (1-2 days for reevaluation) Instructions: Foot Fracture (DC), Foot Sprain (DC) Additional Instructions: Take Tylenol/ibuprofen as needed. Weightbearing as tolerated. Outpatient follow-up with Ortho for reevaluation. Return to ER for any worsening. Prescriptions: Ibuprofen 600 mg PO Q6HPRN PRN 10 Days #20 tablet PRN Reason: Pain
[2020-04-14] MEDS ORDERED: NORCO 5/325 MG PO ONE (18:12)
[2020-04-14] MEDS ORDERED: NORCO 5/325 MG ONE (18:15)
[2020-04-14 19:43] VITALS: BP 126/69; PULSE 55; O2SAT 100
--- NOTE | 2020-04-15 08:47 | XRAY ---
Indication: Pain following volleyball injury. Comparison: None 3 nonweightbearing views right foot demonstrates tiny talonavicular accessory ossicle. No other bony, articular, or soft tissue abnormalities.
== END 2020-04-14 20:01 | disposition home or self-care (01) ==
LOC: ED 16:36
DX: S93.601A Unspecified sprain of right foot, initial encounter (principal); M79.671 Pain in right foot; X50.0XXA Overexertion from strenuous movement or load, initial encounter; X50.9XXA Other and unspecified overexertion or strenuous movements or postures, initial encounter; Y93.89 Activity, other specified; Y92.89 Other specified places as the place of occurrence of the external cause
CPT/HCPCS: 73630; 99284; A9270-GY

== ENCOUNTER 2020-07-05 20:09 | Observation (INO) | payer OTHER ==
[2020-07-05] MEDS ORDERED: SUBLIMAZE 100 MCG/2 ML IV ONE (20:26)
[2020-07-05] MEDS ORDERED: Zofran 4 MG/2 ML VIAL IV ONE ×2 (20:29→23:30)
[2020-07-05] MEDS ORDERED: Sodium Chloride 0.9% 1000 ML 1,000 ML IV SCH (20:30)
[2020-07-05] MEDS ORDERED: SUBLIMAZE 100 MCG/2 ML ONE (20:32)
[2020-07-05] MEDS ORDERED: Zofran 4 MG/2 ML VIAL ONE ×2 (20:32→23:25)
[2020-07-05] MEDS ORDERED: Sodium Chloride 0.9% 1000 ML 1,000 ML ONE (20:32)
[2020-07-05 21:02] LABS: Absolute Neutrophil Ct (ANC) 3.13 (1.4-6.9); BASOPHIL % 0.4 % (0.0-0.4); Basophil (Absolute #) 0.02 (0-0.4); Eosinophil % 2.3 % (0.00-5.0); Eosinophil (Absolute #) 0.13 (0-0.5); Hematocrit 38.4 % (35-47); Hemoglobin 12.3 gm/dl (12.0-16.0); Lymphocyte (Absolute #) 1.91 (1.0-4.6); Lymphocytes % 34.4 % (24.0-44.0); Mean Cell Volume 76.5 fl (78-100); Mean Corpuscular Hemoglobin 24.5 pg (26-32); Mean Platelet Volume 10.5 fl (7.5-11.0); Monocyte (Absolute #) 0.36 (0.0-1.3); Monocytes % 6.5 % (0.0-12.0); Neutrophil % 56.4 % (36.0-66.0); Platelet Count 223 K/mm3 (150-450); Red Blood Count 5.02 M/mm3 (4.1-5.4); Red Cell Distribution Width 14.2 % (11.5-14.0); White Blood Count 5.6 K/mm3 (4.0-10.5)
[2020-07-05 21:20] LABS: Appearance CLEAR (CLEAR); Bilirubin NEGATIVE (NEGATIVE); Blood SMALL Ery/ul (0-5); Epithelial Cells RARE /HPF (FEW); Glucose NEGATIVE (NEGATIVE); Ketones NEGATIVE (NEGATIVE); Leukocyte Esterase NEGATIVE (NEGATIVE); Mucus SLIGHT /HPF (NEGATIVE); Nitrite NEGATIVE (NEGATIVE); Protein,Urine Dip NEGATIVE (Negative); Specific Gravity 1.046 (1.005-1.025); Urobilinogen NEGATIVE mg/dL (0-1); WBC 0-2 /HPF (0-5)
[2020-07-05] MEDS ORDERED: Hydromorphone 1 mg/ml Ampule IV ONE (21:22)
[2020-07-05 21:26] LABS: INR 1.13 (0.8-3.0); PROTIME 12.8 SECONDS (9.95-12.35)
[2020-07-05] MEDS ORDERED: Hydromorphone 1 mg/ml Ampule ONE (21:26)
[2020-07-05 21:29] LABS: PTT 31.4 SECONDS (25.3-37.0)
[2020-07-05 21:31] LABS: ALBUMIN 3.9 g/dL (3.5-5.0); ALKALINE PHOSPHATASE 66 U/L (38-126); AMYLASE 55 U/L (30-110); BLOOD UREA NITROGEN 9 mg/dL (7-17); CHLORIDE 107 mmol/L (98-107); Calcium 8.8 mg/dL (8.4-10.2); Carbon Dioxide 23 mmol/L (22-30); Creatinine 1 0.73 mg/dL (0.52-1.04); EST GLOMERULAR FILTRATION RATE > 60.0 ML/MIN; Glucose 103 mg/dL (74-106); LIPASE 109 U/L (23-300); MAGNESIUM 2.2 mg/dL (1.6-2.3); Potassium 3.7 mmol/L (3.5-5.1); SGOT/AST 33 U/L (14-36); SGPT/ALT 38 U/L (0-35); SODIUM 136 mmol/L (137-145); Total Protein 7.1 g/dL (6.3-8.2)
--- NOTE | 2020-07-05 22:13 | XRAY ---
Indication: Chest pain and short of breath. Comparison: September 17, 2019. Portable chest again demonstrates normal heart, lungs, and bony thorax.
--- NOTE | 2020-07-06 00:06 | ERPHSYRPT ---
- History of Present Illness Time Seen by Provider: 07/05/20 20:25 Historian: patient Exam Limitations: no limitations Patient Subjective Stated Complaint: pt c/o chest pain and sob Triage Nursing Assessment: pt c/o chest pain and sob x40 mins. Chest pain to left upper chest radiating to neck, was driving home when it occured. Pt has nausea, no vomiting. Lungs clear, heart tones reg. Physician History: Is a 29-year-old white female presents with left upper chest pain which is nonpleuritic in nature at approximately 30 minutes prior to arrival while driving she was admitted for 3 days for similar problems 1 year ago over there was no findings that she remembers of stress test etc. she had some nausea no vomiting she has had no sweating she has been short of breath pain is nonpleuritic. Timing/Duration: today Activities at Onset: none Quality: stabbing Location: substernal Chest Pain Radiation: no radiation Severity of Pain-Max: moderate Severity of Pain-Current: moderate Modifying Factors: Improves With: nothing Associated Symptoms: nausea, shortness of breath Nitro Today/Relief: no nitro taken today Aspirin Treatment Today: no aspirin today Allergies/Adverse Reactions: ketorolac [From Toradol] Allergy (Severe, Verified 07/05/20 20:26) Hives latex Allergy (Severe, Verified 07/05/20 20:26) STOPPED BREATHING prochlorperazine [From Compazine] Allergy (Severe, Verified 07/05/20 20:26) Hives and shakes Influenza Virus Vaccines Allergy (Mild, Verified 07/05/20 20:26) headache vomiting levothyroxine sodium [From Synthroid] Allergy (Mild, Verified 07/05/20 20:26) Migranes methylphenidate [From Ritalin] Allergy (Verified 07/05/20 20:26) migranes aspirin Adverse Reaction (Mild, Verified 07/05/20 20:26) Vomiting medidate Adverse Reaction (Mild, Uncoded 04/14/20 17:35) VOMTIING Home Medications: Thyroid,Pork [[place] Thyroid] 15 mg pe PO DAILY 04/14/20 [History] Topiramate 25 mg [Topamax 25 MG] 25 mg PO DAILY PRN PRN 04/14/20 [History] Hx Tetanus, Diphtheria Vaccination/Date Given: Yes Hx Influenza Vaccination/Date Given: No Hx Pneumococcal Vaccination/Date Given: No Immunizations Up to Date: Yes Travel Risk - International Travel Have you traveled outside of the country in past 3 weeks: No - Coronavirus Screening Close contact with a COVID-19 positive Pt in past 14-21 Days: No - Review of Systems Constitutional: No Fever, No Chills Eyes: No Symptoms Ears, Nose, & Throat: No Symptoms Respiratory: Dyspnea, No Cough Cardiac: Chest Pain, No Edema, No Syncope Abdominal/Gastrointestinal: Nausea, No Abdominal Pain, No Vomiting, No Diarrhea Genitourinary Symptoms: No Dysuria Musculoskeletal: No Back Pain, No Neck Pain Skin: No Rash Neurological: No Dizziness, No Focal Weakness, No Sensory Changes Psychological: No Symptoms Endocrine: No Symptoms All Other Systems: Reviewed and Negative - Past Medical History Pertinent Past Medical History: Yes Neurological History: Migraines ENT History: No Pertinent History Cardiac History: Arrhythmia, Other Respiratory History: Asthma Endocrine Medical History: Hypothyroidism Musculoskeletal History: No Pertinent History GI Medical History: No Pertinent History History: No Pertinent History Psycho-Social History: Attention Deficit Disorder, Depression Female Reproductive Disorders: No Pertinent History Other Medical History: Bradycardia, hypotension (usual 90s/60s), post depression 2019 - Past Surgical History Past Surgical History: Yes Neuro Surgical History: No Pertinent History Cardiac: No Pertinent History Respiratory: No Pertinent History Gastrointestinal: Cholecystectomy Genitourinary: No Pertinent History Musculoskeletal: No Pertinent History Female Surgical History: Section, Other Other Surgical History: c section x3, left oopherectomy and tubal removal - Social History Smoking Status: Former smoker How long have you smoked: 8 years Exposure to second hand smoke: No Drug Use: none Patient Lives Alone: No Significant Family History: cancer (colon/breast), diabetes, other (Gall bladder disease) - Female History Hx Now: No - Nursing Vital Signs Nursing Vital Signs: Initial Vital Signs Temperature 97.8 F 07/05/20 20:13 Pulse Rate 78 07/05/20 20:13 Respiratory Rate 24 07/05/20 20:13 Blood Pressure 130/98 07/05/20 20:13 O2 Sat by Pulse Oximetry 100 07/05/20 20:13 Pain Scale Pain Intensity 8 - Physical Exam General Appearance: no apparent distress, alert Eye Exam: PERRL/EOMI, eyes nml inspection Ears, Nose, Throat Exam: normal ENT inspection, moist mucous membranes Neck Exam: normal inspection, non-tender, supple, full range of motion Respiratory Exam: normal breath sounds, lungs clear, No respiratory distress Cardiovascular Exam: regular rate/rhythm, normal heart sounds Gastrointestinal/Abdomen Exam: soft, No tenderness, No mass Back Exam: normal inspection, No CVA tenderness, No vertebral tenderness Extremity Exam: normal inspection, normal range of motion Neurologic Exam: alert, oriented x 3, cooperative, normal mood/affect, sensation nml, No motor deficits Skin Exam: normal color, warm, dry SpO2: 100 - Course Nursing assessment & vital signs reviewed: Yes EKG Interpreted by Me: RATE (70), Sinus Rhythm, NORMAL AXIS, NORMAL INTERVALS, NORMAL QRS, Non-specific ST Changes - Radiology Exams Chest X-ray Interpretation: Interpreted by me, Negative Ordered Tests: Active Orders 24 hr Category Date Time Status EKG-ER Only STAT Care 07/05/20 20:26 Active CHEST 1 VIEW (PORTABLE) Stat Exams 07/05/20 20:26 Completed AMYLASE Stat Lab 07/05/20 20:58 Completed CBC W DIFF Stat Lab 07/05/20 20:58 Completed CMP Stat Lab 07/05/20 20:58 Completed D-DIMER QUANTITATIVE Stat Lab 07/05/20 20:58 Completed LIPASE Stat Lab 07/05/20 20:58 Completed Lactic Acid Stat Lab 07/05/20 20:55 Completed MAGNESIUM Stat Lab 07/05/20 20:58 Completed PROTIME WITH INR Stat Lab 07/05/20 20:58 Completed PTT Stat Lab 07/05/20 20:58 Completed TROPONIN Q3H Lab 07/05/20 20:58 Completed TROPONIN Q3H Lab 07/05/20 23:14 Completed TROPONIN Q3H Lab 07/06/20 02:30 Ordered TROPONIN Q3H Lab 07/06/20 05:30 Ordered TROPONIN Q3H Lab 07/06/20 08:30 Ordered UA W/RFX UR CULTURE Stat Lab 07/05/20 21:05 Completed Medication Summary Generic Name Dose Route Start Last Admin Trade Name Freq PRN Reason Stop Dose Admin Sodium Chloride 1,000 mls @ 100 mls/hr 07/05/20 20:30 07/05/20 20:38 Sodium Chloride 0.9% 1000 Ml IV 08/04/20 20:29 100 mls/hr .Q10H JAH Administration Discontinued Medications Generic Name Dose Route Start Last Admin Trade Name Freq PRN Reason Stop Dose Admin Fentanyl Citrate 100 mcg 07/05/20 20:26 07/05/20 20:38 Sublimaze 100 Mcg/2 Ml IV 07/05/20 20:27 100 mcg STAT ONE Administration Fentanyl Citrate Confirm 07/05/20 20:32 Sublimaze 100 Mcg/2 Ml Administered 07/05/20 20:33 Dose 100 mcg .ROUTE .STK-MED ONE Hydromorphone HCl 1 mg 07/05/20 21:22 07/05/20 21:28 Hydromorphone 1 Mg/Ml Ampule IV 07/05/20 21:23 1 mg STAT ONE Administration Hydromorphone HCl Confirm 07/05/20 21:26 Hydromorphone 1 Mg/Ml Ampule Administered 07/05/20 21:27 Dose 1 mg .ROUTE .STK-MED ONE Ondansetron HCl 4 mg 07/05/20 20:29 07/05/20 20:37 Zofran 4 Mg/2 Ml Vial IV 07/05/20 20:30 4 mg STAT ONE Administration Ondansetron HCl Confirm 07/05/20 20:32 Zofran 4 Mg/2 Ml Vial Administered 07/05/20 20:33 Dose 4 mg .ROUTE .STK-MED ONE Ondansetron HCl Confirm 07/05/20 23:25 Zofran 4 Mg/2 Ml Vial Administered 07/05/20 23:26 Dose 4 mg .ROUTE .STK-MED ONE Ondansetron HCl 4 mg 07/05/20 23:30 07/05/20 23:30 Zofran 4 Mg/2 Ml Vial IV 07/05/20 23:31 4 mg STAT ONE Administration Lab/Rad Data: Laboratory Result Diagrams 07/05/20 20:58 07/05/20 20:58 Laboratory Results 07/05/20 07/05/20 07/05/20 Range/Units 23:14 21:05 20:58 WBC (4.0-10.5) K/mm3 RBC (4.1-5.4) M/mm3 Hgb (12.0-16.0) gm/dl Hct (35-47) % MCV (78-100) fl MCH (26-32) pg MCHC (32-36) g/dl RDW (11.5-14.0) % Plt Count (150-450) K/mm3 MPV (7.5-11.0) fl Gran % (36.0-66.0) % Eos # (Auto) (0-0.5) Absolute Lymphs (auto) (1.0-4.6) Absolute Monos (auto) (0.0-1.3) Lymphocytes % (24.0-44.0) % Monocytes % (0.0-12.0) % Eosinophils % (0.00-5.0) % Basophils % (0.0-0.4) % Absolute Granulocytes (1.4-6.9) Basophils # (0-0.4) PT (9.95-12.35) SECONDS INR (0.8-3.0) APTT (25.3-37.0) SECONDS D-Dimer (215-500) ng/mL Sodium (137-145) mmol/L Potassium (3.5-5.1) mmol/L Chloride (98-107) mmol/L Carbon Dioxide (22-30) mmol/L Anion Gap (5-15) MEQ/L BUN (7-17) mg/dL Creatinine (0.52-1.04) mg/dL Estimated GFR ML/MIN Glucose (74-106) mg/dL Lactic Acid (0.4-2.0) Calcium (8.4-10.2) mg/dL Magnesium (1.6-2.3) mg/dL Total Bilirubin (0.2-1.3) mg/dL AST (14-36) U/L ALT (0-35) U/L Alkaline Phosphatase (38-126) U/L Troponin I < 0.012 < 0.012 (0.000-0.034) ng/mL Serum Total Protein (6.3-8.2) g/dL Albumin (3.5-5.0) g/dL Amylase (30-110) U/L Lipase (23-300) U/L Urine Color STRAW (YELLOW) Urine Appearance CLEAR (CLEAR) Urine pH 7.0 (5-6) Ur Specific [place] 1.046 (1.005-1.025) Urine Protein NEGATIVE (Negative) Urine Ketones NEGATIVE (NEGATIVE) Urine Blood SMALL (0-5) Reymundo/ul Urine Nitrite NEGATIVE (NEGATIVE) Urine Bilirubin NEGATIVE (NEGATIVE) Urine Urobilinogen NEGATIVE (0-1) mg/dL Ur Leukocyte Esterase NEGATIVE (NEGATIVE) Urine WBC (Auto) 0-2 (0-5) /HPF Urine RBC (Auto) NONE (0-2) /HPF U Epithel Cells (Auto) RARE (FEW) /HPF Urine Bacteria (Auto) NONE (NEGATIVE) /HPF Urine Mucus (Auto) SLIGHT (NEGATIVE) /HPF Urine Culture Reflexed NO (NO) Urine Glucose NEGATIVE (NEGATIVE) mg/dL 07/05/20 07/05/20 07/05/20 Range/Units 20:58 20:58 20:58 WBC 5.6 (4.0-10.5) K/mm3 RBC 5.02 (4.1-5.4) M/mm3 Hgb 12.3 (12.0-16.0) gm/dl Hct 38.4 (35-47) % MCV 76.5 L (78-100) fl MCH 24.5 L (26-32) pg MCHC 32.0 (32-36) g/dl RDW 14.2 H (11.5-14.0) % Plt Count 223 (150-450) K/mm3 MPV 10.5 (7.5-11.0) fl Gran % 56.4 (36.0-66.0) % Eos # (Auto) 0.13 (0-0.5) Absolute Lymphs (auto) 1.91 (1.0-4.6) Absolute Monos (auto) 0.36 (0.0-1.3) Lymphocytes % 34.4 (24.0-44.0) % Monocytes % 6.5 (0.0-12.0) % Eosinophils % 2.3 (0.00-5.0) % Basophils % 0.4 (0.0-0.4) % Absolute Granulocytes 3.13 (1.4-6.9) Basophils # 0.02 (0-0.4) PT 12.8 H (9.95-12.35) SECONDS INR 1.13 (0.8-3.0) APTT 31.4 (25.3-37.0) SECONDS D-Dimer 430 (215-500) ng/mL Sodium 136 L (137-145) mmol/L Potassium 3.7 (3.5-5.1) mmol/L Chloride 107 (98-107) mmol/L Carbon Dioxide 23 (22-30) mmol/L Anion Gap 10.0 (5-15) MEQ/L BUN 9 (7-17) mg/dL Creatinine 0.73 (0.52-1.04) mg/dL Estimated GFR > 60.0 ML/MIN Glucose 103 (74-106) mg/dL Lactic Acid (0.4-2.0) Calcium 8.8 (8.4-10.2) mg/dL Magnesium 2.2 (1.6-2.3) mg/dL Total Bilirubin 0.40 (0.2-1.3) mg/dL AST 33 (14-36) U/L ALT 38 H (0-35) U/L Alkaline Phosphatase 66 (38-126) U/L Troponin I (0.000-0.034) ng/mL Serum Total Protein 7.1 (6.3-8.2) g/dL Albumin 3.9 (3.5-5.0) g/dL Amylase 55 (30-110) U/L Lipase 109 (23-300) U/L Urine Color (YELLOW) Urine Appearance (CLEAR) Urine pH (5-6) Ur Specific [place] (1.005-1.025) Urine Protein (Negative) Urine Ketones (NEGATIVE) Urine Blood (0-5) Reymundo/ul Urine Nitrite (NEGATIVE) Urine Bilirubin (NEGATIVE) Urine Urobilinogen (0-1) mg/dL Ur Leukocyte Esterase (NEGATIVE) Urine WBC (Auto) (0-5) /HPF Urine RBC (Auto) (0-2) /HPF U Epithel Cells (Auto) (FEW) /HPF Urine Bacteria (Auto) (NEGATIVE) /HPF Urine Mucus (Auto) (NEGATIVE) /HPF Urine Culture Reflexed (NO) Urine Glucose (NEGATIVE) mg/dL 07/05/20 Range/Units 20:55 WBC (4.0-10.5) K/mm3 RBC (4.1-5.4) M/mm3 Hgb (12.0-16.0) gm/dl Hct (35-47) % MCV (78-100) fl MCH (26-32) pg MCHC (32-36) g/dl RDW (11.5-14.0) % Plt Count (150-450) K/mm3 MPV (7.5-11.0) fl Gran % (36.0-66.0) % Eos # (Auto) (0-0.5) Absolute Lymphs (auto) (1.0-4.6) Absolute Monos (auto) (0.0-1.3) Lymphocytes % (24.0-44.0) % Monocytes % (0.0-12.0) % Eosinophils % (0.00-5.0) % Basophils % (0.0-0.4) % Absolute Granulocytes (1.4-6.9) Basophils # (0-0.4) PT (9.95-12.35) SECONDS INR (0.8-3.0) APTT (25.3-37.0) SECONDS D-Dimer (215-500) ng/mL Sodium (137-145) mmol/L Potassium (3.5-5.1) mmol/L Chloride (98-107) mmol/L Carbon Dioxide (22-30) mmol/L Anion Gap (5-15) MEQ/L BUN (7-17) mg/dL Creatinine (0.52-1.04) mg/dL Estimated GFR ML/MIN Glucose (74-106) mg/dL Lactic Acid 0.8 (0.4-2.0) Calcium (8.4-10.2) mg/dL Magnesium (1.6-2.3) mg/dL Total Bilirubin (0.2-1.3) mg/dL AST (14-36) U/L ALT (0-35) U/L Alkaline Phosphatase (38-126) U/L Troponin I (0.000-0.034) ng/mL Serum Total Protein (6.3-8.2) g/dL Albumin (3.5-5.0) g/dL Amylase (30-110) U/L Lipase (23-300) U/L Urine Color (YELLOW) Urine Appearance (CLEAR) Urine pH (5-6) Ur Specific [place] (1.005-1.025) Urine Protein (Negative) Urine Ketones (NEGATIVE) Urine Blood (0-5) Reymundo/ul Urine Nitrite (NEGATIVE) Urine Bilirubin (NEGATIVE) Urine Urobilinogen (0-1) mg/dL Ur Leukocyte Esterase (NEGATIVE) Urine WBC (Auto) (0-5) /HPF Urine RBC (Auto) (0-2) /HPF U Epithel Cells (Auto) (FEW) /HPF Urine Bacteria (Auto) (NEGATIVE) /HPF Urine Mucus (Auto) (NEGATIVE) /HPF Urine Culture Reflexed (NO) Urine Glucose (NEGATIVE) mg/dL - Progress Progress: unchanged Air Movement: good Progress Note: 07/06/20 00:[address] Gongora patient will be admitted for serial troponins. Blood Culture(s) Obtained: No Antibiotics given: No - Departure Departure Disposition: Observation Clinical Impression: Chest pain Condition: Stable Critical Care Time: No Referrals: YESICA MARADIAGA MD [Primary Care Provider] - Instructions: Chest Pain (DC)
[2020-07-06] MEDS ORDERED: TYLENOL 325 MG PO PRN (00:09)
[2020-07-06] MEDS ORDERED: MAALOX ES 30 ML UNIT DOSE PO PRN (00:09)
[2020-07-06] MEDS ORDERED: MILK OF MAGNESIA 30 ML PO PRN (00:09)
[2020-07-06] MEDS ORDERED: Senokot-S Tablet PO PRN (00:09)
[2020-07-06] MEDS: MORPHINE SULFATE 2 MG INJ IV PRN ×2 (01:02→06:50)
[2020-07-06] MEDS: Zofran 4 MG/2 ML VIAL IV PRN ×2 (08:17→12:26)
--- NOTE | 2020-07-06 13:33 | PCM.HP ---
History of Present Illness - Chief Complaint Chief Complaint: chest pain r/o History of Present Illness: is a 29 year old female pt of Dr. 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 She started having pain yesterday at 7:30 pm, sudden onset, 9/10 substernal pressure/squeezing that radiated to her L arm. Had SOB and palpitations. Troponin neg x 2 in ER. This morning, her chest pain is persistent at 8/10. Troponins have been neg x 5. Her HR is in the 40s-60s; she states she has a hx of bradycardia. She also has some hx PVCs. Her mom has hx PE, also HTN and hyperglycemia. MGM with CHF. Pt is a former smoker (8 pk yr hx). Her Father has DM. Pt had a syncopal episode at age 16 that was attributed to her bradycardia and hypotension (pt had an echocardiogram at that time). Pt c/o vomiting since this morning. - Review of Systems Respiratory: Short Of Breath Cardiac: Chest Pain Abdominal/Gastrointestinal: Nausea, Vomiting Psychological: Anxiety (with SOB), No Suicidal Ideations All Other Systems: Reviewed and Negative Medications & Allergies Home Medications: Home Medication List Thyroid,Pork [[place] Thyroid] 15 mg pe PO DAILY 04/14/20 [History Confirmed 07/05/20] Topiramate 25 mg [Topamax 25 MG] 25 mg PO DAILY PRN PRN 04/14/20 [History Confirmed 07/05/20] Allergies/Adverse Reactions: Allergies Allergy/AdvReac Type Severity Reaction Status Date / Time ketorolac [From Toradol] Allergy Severe Hives Verified 07/05/20 20:26 latex Allergy Severe STOPPED Verified 07/05/20 20:26 BREATHING prochlorperazine Allergy Severe Hives and Verified 07/05/20 20:26 [From Compazine] shakes Influenza Virus Vaccines Allergy Mild headache Verified 07/05/20 20:26 vomiting levothyroxine sodium Allergy Mild Migranes Verified 07/05/20 20:26 [From Synthroid] methylphenidate Allergy migranes Verified 07/05/20 20:26 [From Ritalin] aspirin AdvReac Mild Vomiting Verified 07/05/20 20:26 medidate AdvReac Mild VOMTIING Uncoded 04/14/20 17:35 - Past Medical History Past Medical History: Yes Neurological History: Migraines ENT History: No Pertinent History Cardiac History: Arrhythmia, Other Respiratory History: Asthma Endocrine Medical History: Hypothyroidism Musculoskelatal History: No Pertinent History GI Medical History: No Pertinent History History: No Pertinent History Pyscho-Social History: Attention Deficit Disorder, Depression Reproductive Disorders: No Pertinent History Comment: Bradycardia, hypotension (usual 90s/60s), post depression 2018 - Female History Hx Last Menstrual Period: 06/06/20 Are you now?: No - Past Surgical History Past Surgical History: Yes Neuro Surgical History: No Pertinent History Cardiac History: No Pertinent History Respiratory Surgery: No Pertinent History GI Surgical History: Cholecystectomy Genitourinary Surgical Hx: No Pertinent History Musculskeletal Surgical Hx: No Pertinent History Female Surgical History: Section, Other Other Surgical History: c section x3, left oopherectomy and tubal removal - Social History Smoking Status: Never smoker How long have you smoked: 8 years Exposure to second hand smoke: No Alcohol: None Drug Use: none Significant Family History: cancer (colon/breast), diabetes, other (Gall bladder disease) - Physical Exam Vital Signs: Vital Signs - 24 hr Temp Pulse Pulse Resp BP Pulse Ox 07/06/20 12:00 98.5 F 53 L 14 117/58 98 07/06/20 11:00 98 07/06/20 07:57 98 07/06/20 07:23 97.7 F 54 L 16 103/49 98 07/06/20 04:00 97.6 F 48 L 18 120/57 98 07/06/20 01:08 97.6 F 61 16 124/62 98 07/06/20 00:11 69 15 125/75 98 07/06/20 00:07 100 07/05/20 23:00 64 18 141/74 100 07/05/20 22:00 16 132/69 97 07/05/20 21:16 63 20 127/82 98 07/05/20 20:15 78 07/05/20 20:13 97.8 F 78 24 130/98 100 General Appearance: no apparent distress, obese Neurologic Exam: alert, oriented x 3, cooperative Eye Exam: eyes nml inspection Ears, Nose, Throat Exam: moist mucous membranes Neck Exam: normal inspection, non-tender, No lymphadenopathy Respiratory Exam: normal breath sounds, lungs clear, No crackles/rales, No rhonchi, No wheezing Cardiovascular Exam: normal heart sounds, bradycardia, No murmur Gastrointestinal/Abdomen Exam: soft, normal bowel sounds, No tenderness, No distention, No mass, No guarding, No rebound Back Exam: normal inspection, No rash Extremity Exam: normal inspection, No pedal edema, No swelling Skin Exam: normal color, warm, dry, No rash Results - Labs Lab/Micro Results: Lab Results-Last 24 Hours 07/05/20 07/05/20 07/05/20 Range/Units 20:55 20:58 20:58 WBC 5.6 (4.0-10.5) K/mm3 RBC 5.02 (4.1-5.4) M/mm3 Hgb 12.3 (12.0-16.0) gm/dl Hct 38.4 (35-47) % MCV 76.5 L (78-100) fl MCH 24.5 L (26-32) pg MCHC 32.0 (32-36) g/dl RDW 14.2 H (11.5-14.0) % Plt Count 223 (150-450) K/mm3 MPV 10.5 (7.5-11.0) fl Gran % 56.4 (36.0-66.0) % Eos # (Auto) 0.13 (0-0.5) Absolute Lymphs (auto) 1.91 (1.0-4.6) Absolute Monos (auto) 0.36 (0.0-1.3) Lymphocytes % 34.4 (24.0-44.0) % Monocytes % 6.5 (0.0-12.0) % Eosinophils % 2.3 (0.00-5.0) % Basophils % 0.4 (0.0-0.4) % Absolute Granulocytes 3.13 (1.4-6.9) Basophils # 0.02 (0-0.4) PT (9.95-12.35) SECONDS INR (0.8-3.0) APTT (25.3-37.0) SECONDS D-Dimer (215-500) ng/mL Sodium 136 L (137-145) mmol/L Potassium 3.7 (3.5-5.1) mmol/L Chloride 107 (98-107) mmol/L Carbon Dioxide 23 (22-30) mmol/L Anion Gap 10.0 (5-15) MEQ/L BUN 9 (7-17) mg/dL Creatinine 0.73 (0.52-1.04) mg/dL Estimated GFR > 60.0 ML/MIN Glucose 103 (74-106) mg/dL Lactic Acid 0.8 (0.4-2.0) Calcium 8.8 (8.4-10.2) mg/dL Magnesium 2.2 (1.6-2.3) mg/dL Total Bilirubin 0.40 (0.2-1.3) mg/dL AST 33 (14-36) U/L ALT 38 H (0-35) U/L Alkaline Phosphatase 66 (38-126) U/L Troponin I (0.000-0.034) ng/mL Serum Total Protein 7.1 (6.3-8.2) g/dL Albumin 3.9 (3.5-5.0) g/dL Triglycerides (30-150) mg/dL Cholesterol (50-200) mg/dL LDL Cholesterol (30-100) mg/dL HDL Cholesterol (40-60) mg/dL Heart Disease Risk Ratio Amylase 55 (30-110) U/L Lipase 109 (23-300) U/L Urine Color (YELLOW) Urine Appearance (CLEAR) Urine pH (5-6) Ur Specific [place] (1.005-1.025) Urine Protein (Negative) Urine Ketones (NEGATIVE) Urine Blood (0-5) Re[place]undo/ul Urine Nitrite (NEGATIVE) Urine Bilirubin (NEGATIVE) Urine Urobilinogen (0-1) mg/dL Ur Leukocyte Esterase (NEGATIVE) Urine WBC (Auto) (0-5) /HPF Urine RBC (Auto) (0-2) /HPF U Epithel Cells (Auto) (FEW) /HPF Urine Bacteria (Auto) (NEGATIVE) /HPF Urine Mucus (Auto) (NEGATIVE) /HPF Urine Culture Reflexed (NO) Urine Glucose (NEGATIVE) mg/dL 07/05/20 07/05/20 07/05/20 Range/Units 20:58 20:58 21:05 WBC (4.0-10.5) K/mm3 RBC (4.1-5.4) M/mm3 Hgb (12.0-16.0) gm/dl Hct (35-47) % MCV (78-100) fl MCH (26-32) pg MCHC (32-36) g/dl RDW (11.5-14.0) % Plt Count (150-450) K/mm3 MPV (7.5-11.0) fl Gran % (36.0-66.0) % Eos # (Auto) (0-0.5) Absolute Lymphs (auto) (1.0-4.6) Absolute Monos (auto) (0.0-1.3) Lymphocytes % (24.0-44.0) % Monocytes % (0.0-12.0) % Eosinophils % (0.00-5.0) % Basophils % (0.0-0.4) % Absolute Granulocytes (1.4-6.9) Basophils # (0-0.4) PT 12.8 H (9.95-12.35) SECONDS INR 1.13 (0.8-3.0) APTT 31.4 (25.3-37.0) SECONDS D-Dimer 430 (215-500) ng/mL Sodium (137-145) mmol/L Potassium (3.5-5.1) mmol/L Chloride (98-107) mmol/L Carbon Dioxide (22-30) mmol/L Anion Gap (5-15) MEQ/L BUN (7-17) mg/dL Creatinine (0.52-1.04) mg/dL Estimated GFR ML/MIN Glucose (74-106) mg/dL Lactic Acid (0.4-2.0) Calcium (8.4-10.2) mg/dL Magnesium (1.6-2.3) mg/dL Total Bilirubin (0.2-1.3) mg/dL AST (14-36) U/L ALT (0-35) U/L Alkaline Phosphatase (38-126) U/L Troponin I < 0.012 (0.000-0.034) ng/mL Serum Total Protein (6.3-8.2) g/dL Albumin (3.5-5.0) g/dL Triglycerides (30-150) mg/dL Cholesterol (50-200) mg/dL LDL Cholesterol (30-100) mg/dL HDL Cholesterol (40-60) mg/dL Heart Disease Risk Ratio Amylase (30-110) U/L Lipase (23-300) U/L Urine Color STRAW (YELLOW) Urine Appearance CLEAR (CLEAR) Urine pH 7.0 (5-6) Ur Specific [place] 1.046 (1.005-1.025) Urine Protein NEGATIVE (Negative) Urine Ketones NEGATIVE (NEGATIVE) Urine Blood SMALL (0-5) Reymundo/ul Urine Nitrite NEGATIVE (NEGATIVE) Urine Bilirubin NEGATIVE (NEGATIVE) Urine Urobilinogen NEGATIVE (0-1) mg/dL Ur Leukocyte Esterase NEGATIVE (NEGATIVE) Urine WBC (Auto) 0-2 (0-5) /HPF Urine RBC (Auto) NONE (0-2) /HPF U Epithel Cells (Auto) RARE (FEW) /HPF Urine Bacteria (Auto) NONE (NEGATIVE) /HPF Urine Mucus (Auto) SLIGHT (NEGATIVE) /HPF Urine Culture Reflexed NO (NO) Urine Glucose NEGATIVE (NEGATIVE) mg/dL 07/05/20 07/06/20 07/06/20 Range/Units 23:14 02:51 05:45 WBC (4.0-10.5) K/mm3 RBC (4.1-5.4) M/mm3 Hgb (12.0-16.0) gm/dl Hct (35-47) % MCV (78-100) fl MCH (26-32) pg MCHC (32-36) g/dl RDW (11.5-14.0) % Plt Count (150-450) K/mm3 MPV (7.5-11.0) fl Gran % (36.0-66.0) % Eos # (Auto) (0-0.5) Absolute Lymphs (auto) (1.0-4.6) Absolute Monos (auto) (0.0-1.3) Lymphocytes % (24.0-44.0) % Monocytes % (0.0-12.0) % Eosinophils % (0.00-5.0) % Basophils % (0.0-0.4) % Absolute Granulocytes (1.4-6.9) Basophils # (0-0.4) PT (9.95-12.35) SECONDS INR (0.8-3.0) APTT (25.3-37.0) SECONDS D-Dimer (215-500) ng/mL Sodium (137-145) mmol/L Potassium (3.5-5.1) mmol/L Chloride (98-107) mmol/L Carbon Dioxide (22-30) mmol/L Anion Gap (5-15) MEQ/L BUN (7-17) mg/dL Creatinine (0.52-1.04) mg/dL Estimated GFR ML/MIN Glucose (74-106) mg/dL Lactic Acid (0.4-2.0) Calcium (8.4-10.2) mg/dL Magnesium (1.6-2.3) mg/dL Total Bilirubin (0.2-1.3) mg/dL AST (14-36) U/L ALT (0-35) U/L Alkaline Phosphatase (38-126) U/L Troponin I < 0.012 < 0.012 < 0.012 (0.000-0.034) ng/mL Serum Total Protein (6.3-8.2) g/dL Albumin (3.5-5.0) g/dL Triglycerides (30-150) mg/dL Cholesterol (50-200) mg/dL LDL Cholesterol (30-100) mg/dL HDL Cholesterol (40-60) mg/dL Heart Disease Risk Ratio Amylase (30-110) U/L Lipase (23-300) U/L Urine Color (YELLOW) Urine Appearance (CLEAR) Urine pH (5-6) Ur Specific [place] (1.005-1.025) Urine Protein (Negative) Urine Ketones (NEGATIVE) Urine Blood (0-5) Reymundo/ul Urine Nitrite (NEGATIVE) Urine Bilirubin (NEGATIVE) Urine Urobilinogen (0-1) mg/dL Ur Leukocyte Esterase (NEGATIVE) Urine WBC (Auto) (0-5) /HPF Urine RBC (Auto) (0-2) /HPF U Epithel Cells (Auto) (FEW) /HPF Urine Bacteria (Auto) (NEGATIVE) /HPF Urine Mucus (Auto) (NEGATIVE) /HPF Urine Culture Reflexed (NO) Urine Glucose (NEGATIVE) mg/dL 07/06/20 07/06/20 Range/Units 05:45 08:42 WBC (4.0-10.5) K/mm3 RBC (4.1-5.4) M/mm3 Hgb (12.0-16.0) gm/dl Hct (35-47) % MCV (78-100) fl MCH (26-32) pg MCHC (32-36) g/dl RDW (11.5-14.0) % Plt Count (150-450) K/mm3 MPV (7.5-11.0) fl Gran % (36.0-66.0) % Eos # (Auto) (0-0.5) Absolute Lymphs (auto) (1.0-4.6) Absolute Monos (auto) (0.0-1.3) Lymphocytes % (24.0-44.0) % Monocytes % (0.0-12.0) % Eosinophils % (0.00-5.0) % Basophils % (0.0-0.4) % Absolute Granulocytes (1.4-6.9) Basophils # (0-0.4) PT (9.95-12.35) SECONDS INR (0.8-3.0) APTT (25.3-37.0) SECONDS D-Dimer (215-500) ng/mL Sodium (137-145) mmol/L Potassium (3.5-5.1) mmol/L Chloride (98-107) mmol/L Carbon Dioxide (22-30) mmol/L Anion Gap (5-15) MEQ/L BUN (7-17) mg/dL Creatinine (0.52-1.04) mg/dL Estimated GFR ML/MIN Glucose (74-106) mg/dL Lactic Acid (0.4-2.0) Calcium (8.4-10.2) mg/dL Magnesium (1.6-2.3) mg/dL Total Bilirubin (0.2-1.3) mg/dL AST (14-36) U/L ALT (0-35) U/L Alkaline Phosphatase (38-126) U/L Troponin I < 0.012 (0.000-0.034) ng/mL Serum Total Protein (6.3-8.2) g/dL Albumin (3.5-5.0) g/dL Triglycerides 108 (30-150) mg/dL Cholesterol 123 (50-200) mg/dL LDL Cholesterol 67 (30-100) mg/dL HDL Cholesterol 41 (40-60) mg/dL Heart Disease Risk Ratio 3.0 Amylase (30-110) U/L Lipase (23-300) U/L Urine Color (YELLOW) Urine Appearance (CLEAR) Urine pH (5-6) Ur Specific [place] (1.005-1.025) Urine Protein (Negative) Urine Ketones (NEGATIVE) Urine Blood (0-5) Reymundo/ul Urine Nitrite (NEGATIVE) Urine Bilirubin (NEGATIVE) Urine Urobilinogen (0-1) mg/dL Ur Leukocyte Esterase (NEGATIVE) Urine WBC (Auto) (0-5) /HPF Urine RBC (Auto) (0-2) /HPF U Epithel Cells (Auto) (FEW) /HPF Urine Bacteria (Auto) (NEGATIVE) /HPF Urine Mucus (Auto) (NEGATIVE) /HPF Urine Culture Reflexed (NO) Urine Glucose (NEGATIVE) mg/dL - Radiology Impressions Radiology Exams & Impressions: Radiology Procedures Category Date Time Status CHEST 1 VIEW (PORTABLE) Stat Exams 07/05/20 20:26 Completed - Other Procedures and Tests Respiratory Therapy 07/06/20 01:43 BiPap/CPAP ROUTINE 07/07/20 05:00 EKG ROUTINE 07/08/20 05:00 EKG ROUTINE 07/09/20 05:00 EKG ROUTINE Assessment/Plan (1) Atypical chest pain Current Visit: No Status: Acute Assessment & Plan: Persistent. Would like pt to have an echocardiogram today, if possible. Troponins neg so IN ruled out. Will need to f/u with PCP when she is admitted, but would like to see an improvement in chest pain first. Pt is allergic to toradol. Will try lidoderm patch and po pain med. Code(s): R07.89 - OTHER CHEST PAIN (2) Vomiting Current Visit: No Status: Acute Qualifiers: Vomiting type: unspecified Vomiting Intractability: non-intractable Nausea presence: with nausea Qualified Code(s): R11.2 - Nausea with vomiting, unspecified Assessment & Plan: decreased diet to clear liquid. pt prefers phenergan over zofran. Code(s): R11.10 - VOMITING, UNSPECIFIED
[2020-07-06] MEDS ORDERED: TOPIRAMATE 25 MG PO PRN (14:17)
[2020-07-06] MEDS ORDERED: TOPIRAMATE PO PRN (14:20)
[2020-07-06] MEDS: Lidoderm Patch 5% TOP SCH (14:25)
[2020-07-06] MEDS: PHENERGAN 25 MG PO PRN ×2 (14:25→22:28)
[2020-07-06] MEDS ORDERED: MEDICATION INTERVENTION MC SCH (14:30)
[2020-07-06] MEDS: NORCO 5/325 MG PO PRN (19:42)
[2020-07-07] MEDS: NORCO 5/325 MG PO PRN ×2 (02:26→14:18)
[2020-07-07] MEDS: PHENERGAN 25 MG PO PRN ×2 (07:42→18:21)
[2020-07-07 09:01] VITALS: O2SAT 97
[2020-07-07] MEDS ORDERED: THYROID PORK 15 MG PO SCH (10:00)
[2020-07-07] MEDS ORDERED: solu-MEDROL 40 MG IV SCH (10:40)
[2020-07-07] MEDS: Lidoderm Patch 5% TOP SCH (11:01)
--- NOTE | 2020-07-07 13:58 | PCM.DS ---
Discharge Summary Date of Admission: 07/06/20 00:25 Admitting Physician: YESICA MARADIAGA Primary Care Provider: YESICA MARADIAGA Allergies Allergies ketorolac [From Toradol] Allergy (Severe, Verified 07/05/20 20:26) Hives latex Allergy (Severe, Verified 07/05/20 20:26) STOPPED BREATHING prochlorperazine [From Compazine] Allergy (Severe, Verified 07/05/20 20:26) Hives and shakes Influenza Virus Vaccines Allergy (Mild, Verified 07/05/20 20:26) headache vomiting levothyroxine sodium [From Synthroid] Allergy (Mild, Verified 07/05/20 20:26) Migranes methylphenidate [From Ritalin] Allergy (Verified 07/05/20 20:26) migranes aspirin Adverse Reaction (Mild, Verified 07/05/20 20:26) Vomiting methylprednisolone [From Solu-Medrol] Adverse Reaction (Mild, Verified 07/07/20 11:22) Vomiting medidate Adverse Reaction (Mild, Uncoded 04/14/20 17:35) [facility] Summary - Hospital Course Hospital Course: Pt is 29 yo female with obesity who was admitted with CP to r/o GA and developed vomiting. She came in through ER with few day hx of fatigue and chest pain. Her EKG was nonacute and troponins neg x 5. Labs otherwise noncontributory. d- dimer in normal range. UA nl. no anemia. Her chest pain was better with pain medication, but was persistent. Lidoderm patch did not help. Steroid IV given for concern for inflammation (pt with toradol allergy) but she vomited immediately after. Now she is c/o R sided CP and SOB; EKG and CXR neg, troponin I x 1 neg. D-dimer is slightly elevated now at 630 so she is getting CT chest with contrast to r/o PE. She is getting bland diet this afternoon. If the CT is neg for PE and she can tolerate the diet, she will be discharged to home to continue workup with Dr. Maradiaga outpatient. - Vitals & Intake/Output Vital Signs: Vital Signs Temperature 98.3 F 07/07/20 12:00 Pulse Rate 61 07/07/20 12:00 Respiratory Rate 20 07/07/20 12:00 Blood Pressure 119/56 07/07/20 12:00 O2 Sat by Pulse Oximetry 97 07/07/20 12:00 Intake & Output: Intake & Output 07/05/20 07/06/20 07/07/20 07/08/20 11:59 11:59 11:59 11:59 Intake Total 1445 1975 600 Output Total 500 50 Balance 1445 1475 550 Weight 128.3 kg 129 kg - Lab Result Diagrams: 07/05/20 20:58 07/05/20 20:58 Lab Results-Last 24 Hrs: Lab Results-Last 24 Hours 07/07/20 07/07/20 Range/Units 12:47 12:47 D-Dimer 623 H* (215-500) ng/mL Troponin I < 0.012 (0.000-0.034) ng/mL - Radiology Exams Ordered Rad Exams-Entire Visit: Radiology Procedures Category Date Time Status CHEST 1 VIEW (PORTABLE) Stat Exams 07/05/20 20:26 Completed CHEST 1 VIEW (PORTABLE) Stat Exams 07/07/20 12:52 Taken CHEST WITH CONTRAST [CT] Stat Exams 07/07/20 13:36 Ordered ECHO W/2D AND DOPPLER [US] Routine Exams 07/09/20 Ordered - Procedures and Test Procedures and Tests throughout Hospitalization: Therapy Orders & Screens 07/06/20 01:41 RT Screen per Nursing Assess ONCE Comment: Protocol Order Physician Instructions: Greater than 3 points order RT Admission Screen Reason For Exam: Triggered on Admission Diagnosis: chest pain r/o Diagnosis: chest pain r/o Pneumonia: Yes Home O2: No Asthma: Yes CHF: No Home CPAP/BIPAP: Yes Home Nebs/MDI: No Total Points: 12 07/06/20 01:43 BiPap/CPAP ROUTINE Comment: CPAP PER HOME USE Diagnosis: chest pain r/o 07/06/20 04:17 EKG ROUTINE Comment: 07/07/20 05:00 EKG ROUTINE Comment: 07/07/20 12:31 EKG STAT Comment: Diagnosis: chest pain r/o 07/08/20 05:00 EKG ROUTINE Comment: 07/09/20 05:00 EKG ROUTINE Comment: Discharge Exam General Appearance: no apparent distress, obese Neurologic Exam: oriented x 3, cooperative Eye Exam: eyes nml inspection Ears, Nose, Throat Exam: moist mucous membranes Neck Exam: normal inspection Respiratory Exam: normal breath sounds, lungs clear, other (chest nttp), No c rackles/rales, No rhonchi, No wheezing Cardiovascular Exam: regular rate/rhythm, normal heart sounds, No murmur Gastrointestinal/Abdomen Exam: soft, normal bowel sounds, No tenderness, No distention, No mass, No guarding, No rebound Extremity Exam: normal inspection, No swelling, No tenderness Skin Exam: normal color, warm, dry, No rash Final Diagnosis/Problem List - Final Discharge Diagnosis/Problem (1) Atypical chest pain Current Visit: No Status: Acute Assessment & Plan: GA ruled out. If PE ruled out this afternoon she can discharge to home for further f/u wt Dr. Maradiaga outpatient. If increase in chest pain, short of breath, etc would have her return to ER. Code(s): R07.89 - OTHER CHEST PAIN (2) Vomiting Current Visit: No Status: Acute Assessment & Plan: Unsure etiology. Pt has hx cholecystectomy. If persistent would consider EGD. Add PPI for now. Code(s): R11.10 - VOMITING, UNSPECIFIED - Discharge Disposition: Home, Self-Care Condition: Stable Prescriptions: New Promethazine HCl 25 mg [Phenergan 25 mg] 12.5 mg PO TID PRN #15 tablet PRN Reason: Nausea Continue Topiramate 25 mg [Topamax 25 MG] 25 mg PO DAILY PRN PRN PRN Reason: migraines Thyroid,Pork [[place] Thyroid] 15 mg pe PO DAILY Follow up with: YESICA MARADIAGA MD [Primary Care Provider] - 1 Week
[2020-07-07] MEDS ORDERED: PROTONIX 40 MG IV IV SCH (14:00)
[2020-07-07 17:08] VITALS: BP 138/68; PULSE 56
--- NOTE | 2020-07-07 18:00 | PCM.DS ---
Discharge Summary Date of Admission: 07/06/20 00:25 Admitting Physician: YESICA MARADIAGA Primary Care Provider: YESICA MARADIAGA Allergies Allergies ketorolac [From Toradol] Allergy (Severe, Verified 07/05/20 20:26) Hives latex Allergy (Severe, Verified 07/05/20 20:26) STOPPED BREATHING prochlorperazine [From Compazine] Allergy (Severe, Verified 07/05/20 20:26) Hives and shakes Influenza Virus Vaccines Allergy (Mild, Verified 07/05/20 20:26) headache vomiting levothyroxine sodium [From Synthroid] Allergy (Mild, Verified 07/05/20 20:26) Migranes methylphenidate [From Ritalin] Allergy (Verified 07/05/20 20:26) migranes aspirin Adverse Reaction (Mild, Verified 07/05/20 20:26) Vomiting methylprednisolone [From Solu-Medrol] Adverse Reaction (Mild, Verified 07/07/20 11:22) Vomiting medidate Adverse Reaction (Mild, Uncoded 04/14/20 17:35) [facility] Summary - Hospital Course Hospital Course: INSPECT appropriate today 07/07/20. - Vitals & Intake/Output Vital Signs: Vital Signs Temperature 98.2 F 07/07/20 16:00 Pulse Rate 56 L 07/07/20 16:00 Respiratory Rate 20 07/07/20 16:00 Blood Pressure 138/68 07/07/20 16:00 O2 Sat by Pulse Oximetry 97 07/07/20 16:00 Intake & Output: Intake & Output 07/05/20 07/06/20 07/07/20 07/08/20 11:59 11:59 11:59 11:59 Intake Total 1445 1975 1080 Output Total 500 50 Balance 1445 1475 1030 Weight 128.3 kg 129 kg - Lab Result Diagrams: 07/05/20 20:58 07/05/20 20:58 Lab Results-Last 24 Hrs: Lab Results-Last 24 Hours 07/07/20 07/07/20 Range/Units 12:47 12:47 D-Dimer 623 H* (215-500) ng/mL Troponin I < 0.012 (0.000-0.034) ng/mL - Radiology Exams Ordered Rad Exams-Entire Visit: Radiology Procedures Category Date Time Status CHEST 1 VIEW (PORTABLE) Stat Exams 07/05/20 20:26 Completed CHEST 1 VIEW (PORTABLE) Stat Exams 07/07/20 12:52 Taken CHEST WITH CONTRAST [CT] Stat Exams 07/07/20 16:02 Taken ECHO W/2D AND DOPPLER [US] Routine Exams 07/09/20 Ordered - Procedures and Test Procedures and Tests throughout Hospitalization: Therapy Orders & Screens 07/06/20 01:41 RT Screen per Nursing Assess ONCE Comment: Protocol Order Physician Instructions: Greater than 3 points order RT Admission Screen Reason For Exam: Triggered on Admission Diagnosis: chest pain r/o Diagnosis: chest pain r/o Pneumonia: Yes Home O2: No Asthma: Yes CHF: No Home CPAP/BIPAP: Yes Home Nebs/MDI: No Total Points: 12 07/06/20 01:43 BiPap/CPAP ROUTINE Comment: CPAP PER HOME USE Diagnosis: chest pain r/o 07/06/20 04:17 EKG ROUTINE Comment: 07/07/20 05:00 EKG ROUTINE Comment: 07/07/20 12:31 EKG STAT Comment: Diagnosis: chest pain r/o 07/08/20 05:00 EKG ROUTINE Comment: 07/09/20 05:00 EKG ROUTINE Comment: Final Diagnosis/Problem List - Final Discharge Diagnosis/Problem (1) Atypical chest pain Current Visit: No Status: Acute Code(s): R07.89 - OTHER CHEST PAIN (2) Vomiting Current Visit: No Status: Acute Code(s): R11.10 - VOMITING, UNSPECIFIED - Discharge Disposition: Home, Self-Care Condition: Stable Prescriptions: New Promethazine HCl 25 mg [Phenergan 25 mg] 12.5 mg PO TID PRN #15 tablet PRN Reason: Nausea Hydrocodone/APAP 5-325 Tab^^^ [Caroline 5-325 Tablet^^^] 1 tab PO BID #6 tablet MDD 2 Omeprazole 20 mg PO DAILY #30 capsule. Continue Topiramate 25 mg [Topamax 25 MG] 25 mg PO DAILY PRN PRN PRN Reason: migraines Thyroid,Pork [[place] Thyroid] 15 mg pe PO DAILY Instructions: Chest Pain (DC) Follow up with: YESICA MARADIAGA MD [Primary Care Provider] - 1 Week
--- NOTE | 2020-07-07 21:44 | XRAY ---
Indication: Right chest pain. Comparison: July 05, 2020. Portable chest again demonstrates normal heart and lungs. Bony thorax intact. No new/acute findings. Comment: Preliminary interpretation was made by [facility]. No critical discrepancy.
--- NOTE | 2020-07-07 22:12 | XRAY ---
Indication: Short of breath and chest heaviness. Elevated d-dimer. Multiple contiguous axial images obtained through the chest using 80 cc Isovue 370 contrast and PE protocol. Comparison: September 25, 2015. There is again suboptimal opacification of the pulmonary arteries. No large central pulmonary embolus. Heart is not enlarged. Aorta is normal in course and caliber. No pathologic mediastinal/hilar lymphadenopathy. Lungs inflated and clear. Bony thorax intact. Limited upper abdomen again demonstrates mild fatty liver and 13.7 cm splenomegaly. Impression: 1. Again limited exam for pulmonary embolus evaluation due to suboptimal opacification. No large central pulmonary embolus. 2. No new or acute cardiopulmonary abnormalities. 3. Incidental fatty liver and splenomegaly. Comment: Preliminary interpretation was made by C. No critical discrepancy.
== END 2020-07-07 18:30 | disposition home or self-care (01) ==
LOC: ED 20:09 → MED SURG 07-06 00:25
PROVIDERS: ADMIT General Practice; ATTEND General Practice
DX: R07.89 Other chest pain (principal); R11.10 Vomiting, unspecified; R53.83 Other fatigue; R06.02 Shortness of breath; Z79.899 Other long term (current) drug therapy; E03.9 Hypothyroidism, unspecified; F41.9 Anxiety disorder, unspecified
CPT/HCPCS: 36000; 36415; 71045; 71260; 80053; 80061; 81001; 82150; 83605; 83690; 83721; 83735; 84484; 85025; 85379; 85610; 85730; 93005; 93268; 94660; 96374; 96375; 96376; 99285; G0378; J1170; J2270; J2405; J2920; J3010; A9270-GY

== ENCOUNTER 2021-05-04 19:19 | Emergency (ER) | payer OTHER ==
[2021-05-04] MEDS ORDERED: Ativan 1 MG PO ONE (20:25)
--- NOTE | 2021-05-04 20:25 | ERPHSYRPT ---
- History of Present Illness Time Seen by Provider: 05/04/21 20:22 Source: patient, family Exam Limitations: no limitations Physician History: pt is coming up on the anniversary of the loss of her daughter and is depressed with suicidal ideations and seeking help. No complaints of physical symptoms at this time, neuro exam is normal. Timing/Duration: day(s) Severity of Symptoms-Max: moderate Severity of Symptoms-Current: moderate Context related to: daughter Suicidal thoughts: other (ideation) Associated Symptoms: depressed Previous symptoms: same symptoms as today Allergies/Adverse Reactions: ketorolac [From Toradol] Allergy (Severe, Verified 05/04/21 20:19) Hives latex Allergy (Severe, Verified 05/04/21 20:19) STOPPED BREATHING prochlorperazine [From Compazine] Allergy (Severe, Verified 05/04/21 20:19) Hives and shakes Influenza Virus Vaccines Allergy (Mild, Verified 05/04/21 20:19) headache vomiting levothyroxine sodium [From Synthroid] Allergy (Mild, Verified 05/04/21 20:19) Migranes methylphenidate [From Ritalin] Allergy (Verified 05/04/21 20:19) migranes aspirin Adverse Reaction (Mild, Verified 05/04/21 20:19) Vomiting methylprednisolone [From Solu-Medrol] Adverse Reaction (Mild, Verified 05/04/21 20:19) Vomiting medidate Adverse Reaction (Mild, Uncoded 05/04/21 20:19) VOMTIING Home Medications: Atomoxetine HCl [Strattera] 40 mg PO HS 05/04/21 [History] Cyclobenzaprine HCl 10 mg [Cyclobenzaprine 10 MG] 10 mg PO TID PRN 05/04/21 [History] Hx Tetanus, Diphtheria Vaccination/Date Given: Yes Hx Influenza Vaccination/Date Given: No Hx Pneumococcal Vaccination/Date Given: No - Past Medical History Pertinent Past Medical History: Yes Neurological History: Migraines ENT History: No Pertinent History Cardiac History: Arrhythmia, Other Respiratory History: Asthma Endocrine Medical History: Hypothyroidism Musculoskeletal History: No Pertinent History GI Medical History: No Pertinent History History: No Pertinent History Psycho-Social History: Attention Deficit Disorder, Depression Female Reproductive Disorders: No Pertinent History Other Medical History: Bradycardia, hypotension (usual 90s/60s), post depression 2019 - Past Surgical History Past Surgical History: Yes Neuro Surgical History: No Pertinent History Cardiac: No Pertinent History Respiratory: No Pertinent History Gastrointestinal: Cholecystectomy Genitourinary: No Pertinent History Musculoskeletal: No Pertinent History Female Surgical History: Section, Other Other Surgical History: c section x3, left oopherectomy and tubal removal - Social History Smoking Status: Never smoker How long have you smoked: 8 years Exposure to second hand smoke: No Drug Use: none Patient Lives Alone: No Significant Family History: cancer (colon/breast), diabetes, other (Gall bladder disease) - Review of Systems Constitutional: No Fever, No Chills Eyes: No Symptoms Ears, Nose, & Throat: No Symptoms Respiratory: No Cough, No Dyspnea Cardiac: No Chest Pain, No Edema, No Syncope Abdominal/Gastrointestinal: No Abdominal Pain, No Nausea, No Vomiting, No Diarrhea Genitourinary Symptoms: No Dysuria Musculoskeletal: No Back Pain, No Neck Pain Skin: No Rash Neurological: No Dizziness, No Focal Weakness, No Sensory Changes Psychological: No Symptoms Endocrine: No Symptoms Hematologic/Lymphatic: No Symptoms Immunological/Allergic: No Symptoms All Other Systems: Reviewed and Negative - Nursing Vital Signs Nursing Vital Signs: Initial Vital Signs Temperature 99 F 05/04/21 20:22 Pulse Rate 75 05/04/21 20:22 Respiratory Rate 18 05/04/21 20:22 Blood Pressure 125/82 05/04/21 20:22 O2 Sat by Pulse Oximetry 98 05/04/21 20:22 Pain Scale Pain Intensity 0 - Physical Exam General Appearance: no apparent distress Eyes, Ears, Nose, Throat Exam: normal ENT inspection, moist mucous membranes Neck Exam: normal inspection, non-tender, supple Respiratory Exam: normal breath sounds, lungs clear, No respiratory distress Cardiovascular Exam: regular rate/rhythm, No edema Gastrointestinal/Abdominal Exam: soft, No tenderness, No distention Extremities Exam: normal inspection, normal range of motion, No evidence of injury, No edema Peripheral Pulses: carotid (R): 2+, carotid (L): 2+, femoral (R): 2+, femoral (L): 2+, dorsalis-pedis (R): 2+, dorsalis-pedis (L): 2+ Current Suicidality: denies suicide plan 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, 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, 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 x 3, depressed affect Appearance: appropriate appearance Behavior/Eye Contact/Speech: alert & cooperative, good eye contact, normal speech Thoughts/Hallucinations: normal thought pattern, no apparent hallucination Skin Exam: normal color, warm, dry, No rash - Course Nursing assessment & vital signs reviewed: Yes Ordered Tests: Active Orders 24 hr Category Date Time Status Psychiatric Consult STAT Cons 05/04/21 20:26 Active ACETAMINOPHEN Stat Lab 05/04/21 21:11 Completed CBC W DIFF Stat Lab 05/04/21 21:11 Completed CMP Stat Lab 05/04/21 21:11 Completed ETHYL ALCOHOL Stat Lab 05/04/21 21:11 Completed SALICYLATE Stat Lab 05/04/21 21:11 Completed UA W/RFX UR CULTURE Stat Lab 05/04/21 20:30 Completed Urine Triage Profile Stat Lab 05/04/21 20:30 Completed Medication Summary Discontinued Medications Generic Name Dose Route Start Last Admin Trade Name Jhonq PRN Reason Stop Dose Admin Lorazepam 1 mg 05/04/21 20:25 05/04/21 21:16 Ativan 1 Mg PO 05/04/21 20:26 1 mg STAT ONE Administration Lorazepam Confirm 05/04/21 21:15 Ativan 1 Mg Administered 05/04/21 21:16 Dose 1 mg .ROUTE .STK-MED ONE Lab/Rad Data: Laboratory Result Diagrams 05/04/21 21:11 05/04/21 21:11 Laboratory Results 05/04/21 05/04/21 05/04/21 Range/Units 21:11 21:11 20:30 WBC 6.8 (4.0-10.5) K/mm3 RBC 5.23 (4.1-5.4) M/mm3 Hgb 12.7 (12.0-16.0) gm/dl Hct 40.6 (35-47) % MCV 77.6 L (78-100) fl MCH 24.3 L (26-32) pg MCHC 31.3 L (32-36) g/dl RDW 14.0 (11.5-14.0) % Plt Count 224 (150-450) K/mm3 MPV 10.5 (7.5-11.0) fl Gran % 57.0 (36.0-66.0) % Eos # (Auto) 0.16 (0-0.5) Absolute Lymphs (auto) 2.37 (1.0-4.6) Absolute Monos (auto) 0.40 (0.0-1.3) Lymphocytes % 34.6 (24.0-44.0) % Monocytes % 5.8 (0.0-12.0) % Eosinophils % 2.3 (0.00-5.0) % Basophils % 0.3 (0.0-0.4) % Absolute Granulocytes 3.89 (1.4-6.9) Basophils # 0.02 (0-0.4) Sodium 136 L (137-145) mmol/L Potassium 4.1 (3.5-5.1) mmol/L Chloride 107 (98-107) mmol/L Carbon Dioxide 21 L (22-30) mmol/L Anion Gap 12.9 (5-15) MEQ/L BUN 8 (7-17) mg/dL Creatinine 0.66 (0.52-1.04) mg/dL Estimated GFR > 60.0 ML/MIN Glucose 82 (74-106) mg/dL Calcium 8.9 (8.4-10.2) mg/dL Total Bilirubin 0.40 (0.2-1.3) mg/dL AST 29 (14-36) U/L ALT 19 (0-35) U/L Alkaline Phosphatase 52 (38-126) U/L Serum Total Protein 6.9 (6.3-8.2) g/dL Albumin 3.9 (3.5-5.0) g/dL Urine Color (YELLOW) Urine Appearance (CLEAR) Urine pH (5-6) Ur Specific [place] (1.005-1.025) Urine Protein (Negative) Urine Ketones (NEGATIVE) Urine Blood (0-5) Reymundo/ul Urine Nitrite (NEGATIVE) Urine Bilirubin (NEGATIVE) Urine Urobilinogen (0-1) mg/dL Ur Leukocyte Esterase (NEGATIVE) Urine WBC (Auto) (0-5) /HPF Urine RBC (Auto) (0-2) /HPF U Epithel Cells (Auto) (FEW) /HPF Urine Bacteria (Auto) (NEGATIVE) /HPF Urine Mucus (Auto) (NEGATIVE) /HPF Urine Culture Reflexed (NO) Urine Glucose (NEGATIVE) mg/dL Salicylates < 1.0 L (2-20) mg/dL Urine Opiates Level NEGATIVE (NEGATIVE) Ur Methadone NEGATIVE (NEGATIVE) Acetaminophen < 10 L (10-30) ug/ml Urine Barbiturates NEGATIVE (NEGATIVE) Ur Phencyclidine (PCP) NEGATIVE (NEGATIVE) Urine Amphetamine NEGATIVE (NEGATIVE) U Benzodiazepine Level NEGATIVE (NEGATIVE) Urine Cocaine NEGATIVE (NEGATIVE) Urine Marijuana (THC) NEGATIVE (NEGATIVE) Ethyl Alcohol < 10 (0-10) mg/dL 05/04/21 Range/Units 20:30 WBC (4.0-10.5) K/mm3 RBC (4.1-5.4) M/mm3 Hgb (12.0-16.0) gm/dl Hct (35-47) % MCV (78-100) fl MCH (26-32) pg MCHC (32-36) g/dl RDW (11.5-14.0) % Plt Count (150-450) K/mm3 MPV (7.5-11.0) fl Gran % (36.0-66.0) % Eos # (Auto) (0-0.5) Absolute Lymphs (auto) (1.0-4.6) Absolute Monos (auto) (0.0-1.3) Lymphocytes % (24.0-44.0) % Monocytes % (0.0-12.0) % Eosinophils % (0.00-5.0) % Basophils % (0.0-0.4) % Absolute Granulocytes (1.4-6.9) Basophils # (0-0.4) Sodium (137-145) mmol/L Potassium (3.5-5.1) mmol/L Chloride (98-107) mmol/L Carbon Dioxide (22-30) mmol/L Anion Gap (5-15) MEQ/L BUN (7-17) mg/dL Creatinine (0.52-1.04) mg/dL Estimated GFR ML/MIN Glucose (74-106) mg/dL Calcium (8.4-10.2) mg/dL Total Bilirubin (0.2-1.3) mg/dL AST (14-36) U/L ALT (0-35) U/L Alkaline Phosphatase (38-126) U/L Serum Total Protein (6.3-8.2) g/dL Albumin (3.5-5.0) g/dL Urine Color YELLOW (YELLOW) Urine Appearance CLEAR (CLEAR) Urine pH 6.0 (5-6) Ur Specific [place] 1.014 (1.005-1.025) Urine Protein NEGATIVE (Negative) Urine Ketones NEGATIVE (NEGATIVE) Urine Blood NEGATIVE (0-5) Reymundo/ul Urine Nitrite NEGATIVE (NEGATIVE) Urine Bilirubin NEGATIVE (NEGATIVE) Urine Urobilinogen NEGATIVE (0-1) mg/dL Ur Leukocyte Esterase NEGATIVE (NEGATIVE) Urine WBC (Auto) 0-2 (0-5) /HPF Urine RBC (Auto) NONE (0-2) /HPF U Epithel Cells (Auto) RARE (FEW) /HPF Urine Bacteria (Auto) MANY (NEGATIVE) /HPF Urine Mucus (Auto) SLIGHT (NEGATIVE) /HPF Urine Culture Reflexed NO (NO) Urine Glucose NEGATIVE (NEGATIVE) mg/dL Salicylates (2-20) mg/dL Urine Opiates Level (NEGATIVE) Ur Methadone (NEGATIVE) Acetaminophen (10-30) ug/ml Urine Barbiturates (NEGATIVE) Ur Phencyclidine (PCP) (NEGATIVE) Urine Amphetamine (NEGATIVE) U Benzodiazepine Level (NEGATIVE) Urine Cocaine (NEGATIVE) Urine Marijuana (THC) (NEGATIVE) Ethyl Alcohol (0-10) mg/dL - Progress Progress: unchanged Progress Note: 05/05/21 00:49 awaiting telemental result from psych 05/05/21 01:24 psych eval determined that there will be need for inpt but that they are full at this time- so there will be delays in finding a spot. 05/05/21 03:[address] [facility] by Dr. Gan Discussed with DrTangela: Other (nurses provided info to Dr. Gan at [facility] who accepted.) Will see patient in: hospital (full admit) Counseled pt/family regarding: lab results, diagnosis, need for follow-up - Departure Departure Disposition: Transfer Clinical Impression: depression with suicidal ideation Condition: Good Critical Care Time: No Referrals: YESICA MARADIAGA MD [Primary Care Provider] -
[2021-05-04 20:37] LABS: Appearance CLEAR (CLEAR); Bacteria MANY /HPF (NEGATIVE); Bilirubin NEGATIVE (NEGATIVE); Blood NEGATIVE Ery/ul (0-5); Epithelial Cells RARE /HPF (FEW); Glucose NEGATIVE (NEGATIVE); Ketones NEGATIVE (NEGATIVE); Leukocyte Esterase NEGATIVE (NEGATIVE); Mucus SLIGHT /HPF (NEGATIVE); Nitrite NEGATIVE (NEGATIVE); Protein,Urine Dip NEGATIVE (Negative); Specific Gravity 1.014 (1.005-1.025); Urobilinogen NEGATIVE mg/dL (0-1); WBC 0-2 /HPF (0-5)
[2021-05-04 20:49] LABS: Amphetamine,Urine NEGATIVE (NEGATIVE); Barbiturate,Urine NEGATIVE (NEGATIVE); Benzodiazepine,Urine NEGATIVE (NEGATIVE); Cocaine,Urine NEGATIVE (NEGATIVE); Methadone,Urine NEGATIVE (NEGATIVE); Opiate,Urine NEGATIVE (NEGATIVE); PCP,Urine NEGATIVE (NEGATIVE); THC,Urine NEGATIVE (NEGATIVE)
[2021-05-04] MEDS ORDERED: Ativan 1 MG ONE (21:15)
[2021-05-04 21:16] LABS: Absolute Neutrophil Ct (ANC) 3.89 (1.4-6.9); BASOPHIL % 0.3 % (0.0-0.4); Basophil (Absolute #) 0.02 (0-0.4); Eosinophil % 2.3 % (0.00-5.0); Eosinophil (Absolute #) 0.16 (0-0.5); Hematocrit 40.6 % (35-47); Hemoglobin 12.7 gm/dl (12.0-16.0); Lymphocyte (Absolute #) 2.37 (1.0-4.6); Lymphocytes % 34.6 % (24.0-44.0); Mean Cell Volume 77.6 fl (78-100); Mean Corpuscular Hemoglobin 24.3 pg (26-32); Mean Corpuscular Hgb Concent. 31.3 g/dl (32-36); Mean Platelet Volume 10.5 fl (7.5-11.0); Monocytes % 5.8 % (0.0-12.0); Platelet Count 224 K/mm3 (150-450); Red Blood Count 5.23 M/mm3 (4.1-5.4); White Blood Count 6.8 K/mm3 (4.0-10.5)
[2021-05-04 21:30] LABS: ACETAMINOPHEN < 10 ug/ml (10-30); ALBUMIN 3.9 g/dL (3.5-5.0); ALKALINE PHOSPHATASE 52 U/L (38-126); ANION GAP 12.9 MEQ/L (5-15); BLOOD UREA NITROGEN 8 mg/dL (7-17); CHLORIDE 107 mmol/L (98-107); Calcium 8.9 mg/dL (8.4-10.2); Carbon Dioxide 21 mmol/L (22-30); Creatinine 1 0.66 mg/dL (0.52-1.04); EST GLOMERULAR FILTRATION RATE > 60.0 ML/MIN; ETHYL ALCOHOL < 10 mg/dL (0-10); Glucose 82 mg/dL (74-106); Potassium 4.1 mmol/L (3.5-5.1); SALICYLATE < 1.0 mg/dL (2-20); SGOT/AST 29 U/L (14-36); SGPT/ALT 19 U/L (0-35); SODIUM 136 mmol/L (137-145); Total Protein 6.9 g/dL (6.3-8.2)
[2021-05-05 02:41] VITALS: PULSE 63
[2021-05-05 03:35] VITALS: BP 89/50; O2SAT 97
== END 2021-05-05 04:20 ==
LOC: ED 19:19
DX: F32.9 Major depressive disorder, single episode, unspecified (principal); R45.851 Suicidal ideations; Z79.899 Other long term (current) drug therapy
CPT/HCPCS: 36415; 80053; 80307; 81001; 85025; 90791; 99285; G0480; Q3014; A9270-GY

== ENCOUNTER 2021-06-28 19:28 | Emergency (ER) | payer OTHER ==
[2021-06-28] MEDS ORDERED: SUBLIMAZE 100 MCG/2 ML IV ONE ×2 (20:26→22:17)
[2021-06-28] MEDS ORDERED: Sodium Chloride 0.9% 1000 ML 1,000 ML IV STA (20:26)
[2021-06-28 20:55] LABS: Absolute Neutrophil Ct (ANC) 4.68 (1.4-6.9); BASOPHIL % 0.1 % (0.0-0.4); Basophil (Absolute #) 0.01 (0-0.4); Eosinophil % 1.6 % (0.00-5.0); Eosinophil (Absolute #) 0.12 (0-0.5); Hematocrit 35.8 % (35-47); Hemoglobin 11.7 gm/dl (12.0-16.0); Lymphocyte (Absolute #) 1.93 (1.0-4.6); Lymphocytes % 26.3 % (24.0-44.0); Mean Cell Volume 77.3 fl (78-100); Mean Corpuscular Hemoglobin 25.3 pg (26-32); Mean Corpuscular Hgb Concent. 32.7 g/dl (32-36); Mean Platelet Volume 10.2 fl (7.5-11.0); Monocytes % 8.2 % (0.0-12.0); Neutrophil % 63.8 % (36.0-66.0); Platelet Count 226 K/mm3 (150-450); Red Blood Count 4.63 M/mm3 (4.1-5.4); Red Cell Distribution Width 14.2 % (11.5-14.0); White Blood Count 7.3 K/mm3 (4.0-10.5)
[2021-06-28 21:00] LABS: INR 1.19 (0.8-3.0); PROTIME 14.1 SECONDS (9.4-12.5)
[2021-06-28] MEDS ORDERED: Sodium Chloride 0.9% 1000 ML 1,000 ML ONE (21:01)
[2021-06-28] MEDS ORDERED: SUBLIMAZE 100 MCG/2 ML ONE ×2 (21:01→22:08)
[2021-06-28 21:13] LABS: ALBUMIN 3.8 g/dL (3.5-5.0); ALKALINE PHOSPHATASE 58 U/L (38-126); AMYLASE 37 U/L (30-110); ANION GAP 13.7 MEQ/L (5-15); BLOOD UREA NITROGEN 11 mg/dL (7-17); CHLORIDE 107 mmol/L (98-107); Calcium 8.6 mg/dL (8.4-10.2); Carbon Dioxide 20 mmol/L (22-30); Creatinine 1 0.77 mg/dL (0.52-1.04); EST GLOMERULAR FILTRATION RATE > 60.0 ML/MIN; Glucose 88 mg/dL (74-106); LIPASE 42 U/L (23-300); MAGNESIUM 2.1 mg/dL (1.6-2.3); NT PRO BNP 65.5 pg/mL (0-450); Potassium 3.2 mmol/L (3.5-5.1); SGOT/AST 26 U/L (14-36); SGPT/ALT 25 U/L (0-35); SODIUM 137 mmol/L (137-145); Total Protein 6.6 g/dL (6.3-8.2)
--- NOTE | 2021-06-28 21:59 | XRAY ---
Indication: Chest pain, short of breath, and bradycardia. Comparison: July 07, 2020. Portable chest again demonstrates normal heart, lungs, and bony thorax.
[2021-06-28 22:34] LABS: Appearance SLIGHTLY CLOUDY (CLEAR); Bacteria MANY /HPF (NEGATIVE); Bilirubin NEGATIVE (NEGATIVE); Blood NEGATIVE Ery/ul (0-5); Epithelial Cells RARE /HPF (FEW); Glucose NEGATIVE (NEGATIVE); Ketones TRACE (NEGATIVE); Leukocyte Esterase NEGATIVE (NEGATIVE); Mucus MANY /HPF (NEGATIVE); Nitrite NEGATIVE (NEGATIVE); Protein,Urine Dip 30 (Negative); Specific Gravity 1.031 (1.005-1.025); Urobilinogen NEGATIVE mg/dL (0-1)
[2021-06-29] MEDS ORDERED: SUBLIMAZE 100 MCG/2 ML ONE (00:24)
[2021-06-29] MEDS ORDERED: SUBLIMAZE 100 MCG/2 ML IV ONE (00:30)
--- NOTE | 2021-06-29 01:00 | ERPHSYRPT ---
- History of Present Illness Time Seen by Provider: 06/28/21 19:55 Source: patient, other Exam Limitations: no limitations Patient Subjective Stated Complaint: c/o heart palpatations that started approx 1 hour prior to arrival to ER. Now having SOB and pain in her left arm and left side of her neck. Had a loop crowell device placed in her left chest approx 2 weeks ago. Director Of Vital Statistics is Dr. Alonso. Triage Nursing Assessment: Patient ambulated to room without difficulties. Face is warm and flushed. Alert and oriented and able to answer questions appropriately. Lungs clear. No labored breaths noted at this time but patient does need to pause to answer questions at times. Physician History: Patient is a 30-year-old female who presents with a complaint of palpitations followed by shortness of breath chest pain which radiated up the left side of the neck into the head. This started approximately 45 minutes prior to arrival she also has some headaches associated. She had a loop recorder placed by Dr. Alonso approximately 3 weeks ago to evaluate palpitations. She states that with movement she feels exceedingly short of breath. She denies any fever chills but says she feels bad all over. Allergies/Adverse Reactions: ketorolac [From Toradol] Allergy (Severe, Verified 06/28/21 20:01) Hives latex Allergy (Severe, Verified 06/28/21 20:01) STOPPED BREATHING prochlorperazine [From Compazine] Allergy (Severe, Verified 06/28/21 20:01) Hives and shakes Influenza Virus Vaccines Allergy (Mild, Verified 06/28/21 20:01) headache vomiting levothyroxine sodium [From Synthroid] Allergy (Mild, Verified 06/28/21 20:01) Migranes methylphenidate [From Ritalin] Allergy (Verified 06/28/21 20:01) migranes aspirin Adverse Reaction (Mild, Verified 06/28/21 20:01) Vomiting methylprednisolone [From Solu-Medrol] Adverse Reaction (Mild, Verified 06/28/21 20:01) Vomiting medidate Adverse Reaction (Mild, Uncoded 06/28/21 20:01) VOMTIING Home Medications: Buspirone HCl [Buspar] 10 mg PO QID 06/28/21 [History] Trazodone HCl 100 mg PO HS 06/28/21 [History] Hx Tetanus, Diphtheria Vaccination/Date Given: Yes Hx Influenza Vaccination/Date Given: No Hx Pneumococcal Vaccination/Date Given: No Immunizations Up to Date: Yes Travel Risk - International Travel Have you traveled outside of the country in past 3 weeks: No - Coronavirus Screening Are you exhibiting any of the following symptoms?: Yes Symptoms: Shortness of Breath, Headaches/Body Aches/Fatigue Close contact with a COVID-19 positive Pt in past 14-21 Days: No - Vaccine Status Have you recieved a Covid-19 vaccination: No - Review of Systems Constitutional: No Fever, No Chills Eyes: No Symptoms Ears, Nose, & Throat: No Symptoms Respiratory: Dyspnea, Dyspnea on Exertion (STAPLES), Wheezing, No Cough Cardiac: No Chest Pain, No Edema, No Syncope Abdominal/Gastrointestinal: No Abdominal Pain, No Nausea, No Vomiting, No Diarrhea Genitourinary Symptoms: No Dysuria Musculoskeletal: No Back Pain, No Neck Pain Skin: No Rash Neurological: Headache, No Dizziness, No Focal Weakness, No Sensory Changes Psychological: No Symptoms Endocrine: No Symptoms All Other Systems: Reviewed and Negative - Past Medical History Pertinent Past Medical History: Yes Neurological History: Migraines ENT History: No Pertinent History Cardiac History: Arrhythmia, Other Respiratory History: Asthma Endocrine Medical History: Hypothyroidism Musculoskeletal History: No Pertinent History GI Medical History: GERD History: No Pertinent History Psycho-Social History: Anxiety, Attention Deficit Disorder, Depression Female Reproductive Disorders: No Pertinent History Other Medical History: Bradycardia, hypotension (usual 90s/60s), post depression 2018 - Past Surgical History Past Surgical History: Yes Neuro Surgical History: No Pertinent History Cardiac: Other Respiratory: No Pertinent History Gastrointestinal: Cholecystectomy Genitourinary: No Pertinent History Musculoskeletal: No Pertinent History Female Surgical History: Section, Other Other Surgical History: c section x3, left oopherectomy and tubal removal, Loop crowell device placed approx 2 weeks ago - Social History Smoking Status: Never smoker How long have you smoked: 8 years Exposure to second hand smoke: No Drug Use: none Patient Lives Alone: No Significant Family History: cancer (colon/breast), diabetes, other (Gall bladder disease) - Female History Hx Now: No - Nursing Vital Signs Nursing Vital Signs: Initial Vital Signs Temperature 99.1 F 06/28/21 19:48 Pulse Rate 76 06/28/21 19:48 Respiratory Rate 22 06/28/21 19:48 Blood Pressure 92/53 06/28/21 19:48 O2 Sat by Pulse Oximetry 95 06/28/21 19:48 Pain Scale Pain Intensity 8 - Physical Exam General Appearance: mild distress Eye Exam: PERRL/EOMI Ears, Nose, Throat Exam: hearing grossly normal, normal ENT inspection Neck Exam: normal inspection, supple, full range of motion Respiratory Exam: normal breath sounds, lungs clear Cardiovascular/Chest Exam: normal heart sounds, regular rate/rhythm Abdominal/Gastrointestinal Exam: soft, No tenderness, No distention, No mass Extremity Exam: non-tender, normal range of motion, normal inspection, no calf tenderness, no pedal edema Neurologic Exam: alert, oriented x 3, cooperative, care worker II-XII nml as tested, sensation nml, No motor deficits Skin Exam: normal color, warm, No dry SpO2 Interpretation: normal SpO2: 99 O2 Delivery: Room Air - Course Nursing assessment & vital signs reviewed: Yes EKG Interpreted by Me: RATE (82), Sinus Rhythm, NORMAL AXIS, NORMAL INTERVALS, NORMAL QRS, Non-specific ST Changes - Radiology Exams Chest X-ray Interpretation: Interpreted by me, Negative - CT Exams Chest CT Interpretation: Tele-radiologist Report, Other (Patient has 2 lung nodules that will need to be followed up with a PET scan on a nonurgent basis) Ordered Tests: Active Orders 24 hr Category Date Time Status 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 STAT Care 06/28/21 20:27 Active EKG-ER Only STAT Care 06/28/21 20:26 Active IV Insertion STAT Care 06/28/21 20:26 Active CHEST 1 VIEW (PORTABLE) Stat Exams 06/28/21 20:27 Completed CHEST WITH CONTRAST [CT] Stat Exams 06/28/21 22:10 Taken AMYLASE Stat Lab 06/28/21 20:45 Completed CBC W DIFF Stat Lab 06/28/21 20:45 Completed CMP Stat Lab 06/28/21 20:45 Completed CULTURE,URINE Stat Lab 06/28/21 21:39 Received D-DIMER QUANTITATIVE Stat Lab 06/28/21 20:45 Completed LIPASE Stat Lab 06/28/21 20:45 Completed Lactic Acid Stat Lab 06/28/21 20:54 Completed MAGNESIUM Stat Lab 06/28/21 20:45 Completed NT PRO BNP Stat Lab 06/28/21 20:45 Completed PROTIME WITH INR Stat Lab 06/28/21 20:45 Completed TROPONIN Q3H Lab 06/28/21 20:45 Completed TROPONIN Q3H Lab 06/28/21 23:30 Completed TROPONIN Q3H Lab 06/29/21 02:30 Ordered TROPONIN Q3H Lab 06/29/21 05:30 Ordered TROPONIN Q3H Lab 06/29/21 08:30 Ordered UA W/RFX UR CULTURE Stat Lab 06/28/21 21:39 Completed Medication Summary Discontinued Medications Generic Name Dose Route Start Last Admin Trade Name Alis PRN Reason Stop Dose Admin Fentanyl Citrate 50 mcg 06/28/21 20:26 06/28/21 21:06 Sublimaze 100 Mcg/2 Ml IV 06/28/21 20:27 50 mcg STAT ONE Administration Fentanyl Citrate Confirm 06/28/21 21:01 Sublimaze 100 Mcg/2 Ml Administered 06/28/21 21:02 Dose 100 mcg .ROUTE .STK-MED ONE Fentanyl Citrate Confirm 06/28/21 22:08 Sublimaze 100 Mcg/2 Ml Administered 06/28/21 22:09 Dose 100 mcg .ROUTE .STK-MED ONE Fentanyl Citrate 50 mcg 06/28/21 22:17 06/28/21 22:19 Sublimaze 100 Mcg/2 Ml IV 06/28/21 22:18 50 mcg STAT ONE Administration Fentanyl Citrate Confirm 06/29/21 00:24 Sublimaze 100 Mcg/2 Ml Administered 06/29/21 00:25 Dose 100 mcg .ROUTE .STK-MED ONE Fentanyl Citrate 75 mcg 06/29/21 00:30 06/29/21 00:32 Sublimaze 100 Mcg/2 Ml IV 06/29/21 00:31 75 mcg STAT ONE Administration Sodium Chloride 1,000 mls @ 999 mls/hr 06/28/21 20:26 06/28/21 22:11 Sodium Chloride 0.9% 1000 Ml IV 06/28/21 21:26 Infused .Q1H1M STA Infusion Sodium Chloride Confirm 06/28/21 21:01 Sodium Chloride 0.9% 1000 Ml Administered 06/28/21 21:02 Dose 1,000 mls @ ud .ROUTE .STK-MED ONE Lab/Rad Data: Laboratory Result Diagrams 06/28/21 20:45 06/28/21 20:45 Laboratory Results 06/28/21 06/28/21 06/28/21 Range/Units 23:30 21:39 20:54 WBC (4.0-10.5) K/mm3 RBC (4.1-5.4) M/mm3 Hgb (12.0-16.0) gm/dl Hct (35-47) % MCV (78-100) fl MCH (26-32) pg MCHC (32-36) g/dl RDW (11.5-14.0) % Plt Count (150-450) K/mm3 MPV (7.5-11.0) fl Gran % (36.0-66.0) % Eos # (Auto) (0-0.5) Absolute Lymphs (auto) (1.0-4.6) Absolute Monos (auto) (0.0-1.3) Lymphocytes % (24.0-44.0) % Monocytes % (0.0-12.0) % Eosinophils % (0.00-5.0) % Basophils % (0.0-0.4) % Absolute Granulocytes (1.4-6.9) Basophils # (0-0.4) PT (9.4-12.5) SECONDS INR (0.8-3.0) D-Dimer (215-500) ng/mL Sodium (137-145) mmol/L Potassium (3.5-5.1) mmol/L Chloride (98-107) mmol/L Carbon Dioxide (22-30) mmol/L Anion Gap (5-15) MEQ/L BUN (7-17) mg/dL Creatinine (0.52-1.04) mg/dL Estimated GFR ML/MIN Glucose (74-106) mg/dL Lactic Acid 0.5 (0.4-2.0) Calcium (8.4-10.2) mg/dL Magnesium (1.6-2.3) mg/dL Total Bilirubin (0.2-1.3) mg/dL AST (14-36) U/L ALT (0-35) U/L Alkaline Phosphatase (38-126) U/L Troponin I < 0.012 (0.000-0.034) ng/mL NT-Pro-B Natriuret Pep (0-450) pg/mL Serum Total Protein (6.3-8.2) g/dL Albumin (3.5-5.0) g/dL Amylase (30-110) U/L Lipase (23-300) U/L Urine Color ELVIRA (YELLOW) Urine Appearance SLIGHTLY CLOUDY (CLEAR) Urine pH 5.0 (5-6) Ur Specific Imperial 1.031 (1.005-1.025) Urine Protein 30 (Negative) Urine Ketones TRACE (NEGATIVE) Urine Blood NEGATIVE (0-5) Reymundo/ul Urine Nitrite NEGATIVE (NEGATIVE) Urine Bilirubin NEGATIVE (NEGATIVE) Urine Urobilinogen NEGATIVE (0-1) mg/dL Ur Leukocyte Esterase NEGATIVE (NEGATIVE) Urine WBC (Auto) 6-10 (0-5) /HPF Urine RBC (Auto) NONE (0-2) /HPF U Hyaline Cast (Auto) 3-5 (0-2) /LPF U Epithel Cells (Auto) RARE (FEW) /HPF Urine Bacteria (Auto) MANY (NEGATIVE) /HPF Urine Mucus (Auto) MANY (NEGATIVE) /HPF Urine Culture Reflexed YES (NO) Urine Glucose NEGATIVE (NEGATIVE) mg/dL 06/28/21 06/28/21 06/28/21 Range/Units 20:45 20:45 20:45 WBC (4.0-10.5) K/mm3 RBC (4.1-5.4) M/mm3 Hgb (12.0-16.0) gm/dl Hct (35-47) % MCV (78-100) fl MCH (26-32) pg MCHC (32-36) g/dl RDW (11.5-14.0) % Plt Count (150-450) K/mm3 MPV (7.5-11.0) fl Gran % (36.0-66.0) % Eos # (Auto) (0-0.5) Absolute Lymphs (auto) (1.0-4.6) Absolute Monos (auto) (0.0-1.3) Lymphocytes % (24.0-44.0) % Monocytes % (0.0-12.0) % Eosinophils % (0.00-5.0) % Basophils % (0.0-0.4) % Absolute Granulocytes (1.4-6.9) Basophils # (0-0.4) PT 14.1 H (9.4-12.5) SECONDS INR 1.19 (0.8-3.0) D-Dimer 340 (215-500) ng/mL Sodium 137 (137-145) mmol/L Potassium 3.2 L (3.5-5.1) mmol/L Chloride 107 (98-107) mmol/L Carbon Dioxide 20 L (22-30) mmol/L Anion Gap 13.7 (5-15) MEQ/L BUN 11 (7-17) mg/dL Creatinine 0.77 (0.52-1.04) mg/dL Estimated GFR > 60.0 ML/MIN Glucose 88 (74-106) mg/dL Lactic Acid (0.4-2.0) Calcium 8.6 (8.4-10.2) mg/dL Magnesium 2.1 (1.6-2.3) mg/dL Total Bilirubin 0.80 (0.2-1.3) mg/dL AST 26 (14-36) U/L ALT 25 (0-35) U/L Alkaline Phosphatase 58 (38-126) U/L Troponin I < 0.012 (0.000-0.034) ng/mL NT-Pro-B Natriuret Pep 65.5 (0-450) pg/mL Serum Total Protein 6.6 (6.3-8.2) g/dL Albumin 3.8 (3.5-5.0) g/dL Amylase 37 (30-110) U/L Lipase 42 (23-300) U/L Urine Color (YELLOW) Urine Appearance (CLEAR) Urine pH (5-6) Ur Specific Imperial (1.005-1.025) Urine Protein (Negative) Urine Ketones (NEGATIVE) Urine Blood (0-5) Reymundo/ul Urine Nitrite (NEGATIVE) Urine Bilirubin (NEGATIVE) Urine Urobilinogen (0-1) mg/dL Ur Leukocyte Esterase (NEGATIVE) Urine WBC (Auto) (0-5) /HPF Urine RBC (Auto) (0-2) /HPF U Hyaline Cast (Auto) (0-2) /LPF U Epithel Cells (Auto) (FEW) /HPF Urine Bacteria (Auto) (NEGATIVE) /HPF Urine Mucus (Auto) (NEGATIVE) /HPF Urine Culture Reflexed (NO) Urine Glucose (NEGATIVE) mg/dL 06/28/ Range/Units 20:45 WBC 7.3 (4.0-10.5) K/mm3 RBC 4.63 (4.1-5.4) M/mm3 Hgb 11.7 L (12.0-16.0) gm/dl Hct 35.8 (35-47) % MCV 77.3 L (78-100) fl MCH 25.3 L (26-32) pg MCHC 32.7 (32-36) g/dl RDW 14.2 H (11.5-14.0) % Plt Count 226 (150-450) K/mm3 MPV 10.2 (7.5-11.0) fl Gran % 63.8 (36.0-66.0) % Eos # (Auto) 0.12 (0-0.5) Absolute Lymphs (auto) 1.93 (1.0-4.6) Absolute Monos (auto) 0.60 (0.0-1.3) Lymphocytes % 26.3 (24.0-44.0) % Monocytes % 8.2 (0.0-12.0) % Eosinophils % 1.6 (0.00-5.0) % Basophils % 0.1 (0.0-0.4) % Absolute Granulocytes 4.68 (1.4-6.9) Basophils # 0.01 (0-0.4) PT (9.4-12.5) SECONDS INR (0.8-3.0) D-Dimer (215-500) ng/mL Sodium (137-145) mmol/L Potassium (3.5-5.1) mmol/L Chloride (98-107) mmol/L Carbon Dioxide (22-30) mmol/L Anion Gap (5-15) MEQ/L BUN (7-17) mg/dL Creatinine (0.52-1.04) mg/dL Estimated GFR ML/MIN Glucose (74-106) mg/dL Lactic Acid (0.4-2.0) Calcium (8.4-10.2) mg/dL Magnesium (1.6-2.3) mg/dL Total Bilirubin (0.2-1.3) mg/dL AST (14-36) U/L ALT (0-35) U/L Alkaline Phosphatase (38-126) U/L Troponin I (0.000-0.034) ng/mL NT-Pro-B Natriuret Pep (0-450) pg/mL Serum Total Protein (6.3-8.2) g/dL Albumin (3.5-5.0) g/dL Amylase (30-110) U/L Lipase (23-300) U/L Urine Color (YELLOW) Urine Appearance (CLEAR) Urine pH (5-6) Ur Specific Imperial (1.005-1.025) Urine Protein (Negative) Urine Ketones (NEGATIVE) Urine Blood (0-5) Reymundo/ul Urine Nitrite (NEGATIVE) Urine Bilirubin (NEGATIVE) Urine Urobilinogen (0-1) mg/dL Ur Leukocyte Esterase (NEGATIVE) Urine WBC (Auto) (0-5) /HPF Urine RBC (Auto) (0-2) /HPF U Hyaline Cast (Auto) (0-2) /LPF U Epithel Cells (Auto) (FEW) /HPF Urine Bacteria (Auto) (NEGATIVE) /HPF Urine Mucus (Auto) (NEGATIVE) /HPF Urine Culture Reflexed (NO) Urine Glucose (NEGATIVE) mg/dL - Progress Progress: unchanged Air Movement: good Blood Culture(s) Obtained: Yes Antibiotics given: No - Departure Departure Disposition: Home Clinical Impression: Dyspnea, Lung nodules, Atypical chest pain, Hypokalemia Condition: Stable Critical Care Time: No Referrals: YESICA MARADIAGA MD [Primary Care Provider] - Instructions: Shortness of Breath (Dyspnea) (DC) Prescriptions: Hydrocodone/Acetaminophen [Hydrocodone-Acetamin 5-325 mg] 1 tab PO Q6HPRN PRN 3 Days #12 tablet MDD 4 PRN Reason: Pain
[2021-06-29] MEDS ORDERED: NORCO 5/325 MG PO ONE (01:13)
[2021-06-29 01:17] VITALS: BP 112/73; PULSE 63; O2SAT 97
[2021-06-29] MEDS ORDERED: NORCO 5/325 MG ONE (01:18)
--- NOTE | 2021-06-29 07:35 | XRAY ---
Indication: Chest pain. Dyspnea on exertion. Arrhythmia. Status post surgery 2 weeks ago. Multiple contiguous axial images obtained through the chest using 100 cc Isovue 370 contrast. Comparison: July 07, 2020. Stable 1 cm right middle lobe and 7 mm peripheral right lower lobe noncalcified nodules probably granulomatous in this demographic. No infiltrates, effusion, or pneumothorax. Heart not enlarged. Aorta is normal in course and caliber. No pathologic mediastinal/hilar lymphadenopathy. Bony thorax intact. Limited upper abdomen again demonstrates mild fatty liver and 14 cm splenomegaly. Impression: 1. Stable tiny right middle and right lower lobe noncalcified nodules probably granulomatous. 2. Again incidental fatty liver and splenomegaly. 3. Remaining CT chest with contrast exam is negative. Comment: Preliminary interpretation made by [facility]. No critical discrepancy.
== END 2021-06-29 01:41 | disposition home or self-care (01) ==
LOC: ED 19:28
DX: R06.00 Dyspnea, unspecified (principal); R91.1 Solitary pulmonary nodule; R07.89 Other chest pain; E87.6 Hypokalemia; R00.2 Palpitations; Z79.899 Other long term (current) drug therapy
CPT/HCPCS: 36000; 36415; 71045; 71260; 80053; 81001; 82150; 83605; 83690; 83735; 83880; 84484; 85025; 85379; 85610; 87086; 93005; 93041; 96374; 96376; 99285; U0003; J3010; A9270-GY

== ENCOUNTER 2021-07-06 17:52 | Emergency (ER) | payer OTHER ==
--- NOTE | 2021-07-06 18:31 | ERPHSYRPT ---
- History of Present Illness Historian: patient Exam Limitations: no limitations Patient Subjective Stated Complaint: Pt states that she has had diarrhea for the past 2 weeks and she can't eat due to nauseousness, pain is in her RUQ, pt does not have a gallbladder Triage Nursing Assessment: Pt brought self to the ER, vitals wnl, rates abdominal pain as 7/10, pt was in this ER last week and states that she was just tested for Covid which came back negative, states that her bowels look like liquid mucous and light brown, denies pain with palpation in all other quadrants except for the RUQ, has lost approx 20 pounds Timing/Duration: week(s) (2) Activities at Onset: none Quality: aching Abdominal Pain Onset Location: RUQ, epigastric Severity of Pain-Max: mild (To moderate) Severity of Pain-Current: mild (To moderate) Modifying Factors: Improves With: vomiting (And dry heaves) Associated Symptoms: diarrhea, loss of appetite, nausea, vomiting, weakness Previous symptoms: no prior history Hx Tetanus, Diphtheria Vaccination/Date Given: Yes Hx Influenza Vaccination/Date Given: No Hx Pneumococcal Vaccination/Date Given: No <SALONI GARAY - Last Filed: 07/06/21 18:26> <SURI ALONZO - Last Filed: 07/06/21 23:26> - History of Present Illness Time Seen by Provider: 07/06/21 18:20 Physician History: This is a 30-year-old obese white female who has a history of migraine headaches, depression, anxiety issues, hypothyroidism, gastroesophageal reflux disease, arrhythmias and is status post cholecystectomy, section and left salpingo-oophorectomy and presents with right upper quadrant, epigastric abdominal pain, dry heaves and intermittent diarrhea over the last several days. Patient was seen in this emergency department for chest pain complaints on 06/27/2021. Patient denies any new medications. She denies antibiotic use. She has no history of prior episodes of diarrheal stools. She had a negative Covid test that was performed recently. Patient denies shortness of breath. She denies chest pain. She denies fevers. (SALONI GARAY) Allergies/Adverse Reactions: ketorolac [From Toradol] Allergy (Severe, Verified 07/06/21 18:08) Hives latex Allergy (Severe, Verified 07/06/21 18:08) STOPPED BREATHING prochlorperazine [From Compazine] Allergy (Severe, Verified 07/06/21 18:08) Hives and shakes Influenza Virus Vaccines Allergy (Mild, Verified 07/06/21 18:08) headache vomiting levothyroxine sodium [From Synthroid] Allergy (Mild, Verified 07/06/21 18:08) Migranes methylphenidate [From Ritalin] Allergy (Verified 07/06/21 18:08) migranes aspirin Adverse Reaction (Mild, Verified 07/06/21 18:08) Vomiting methylprednisolone [From Solu-Medrol] Adverse Reaction (Mild, Verified 07/06/21 18:08) Vomiting medidate Adverse Reaction (Mild, Uncoded 07/06/21 18:08) VOMTIING Home Medications: Buspirone HCl [Buspar] 10 mg PO QID 06/28/21 [History] Trazodone HCl 100 mg PO HS 06/28/21 [History] Lisdexamfetamine Dimesylate [Vyvanse] 40 mg PO DAILY 07/06/21 [History] Travel Risk - International Travel Have you traveled outside of the country in past 3 weeks: No - Coronavirus Screening Are you exhibiting any of the following symptoms?: No Close contact with a COVID-19 positive Pt in past 14-21 Days: No - Vaccine Status Have you recieved a Covid-19 vaccination: No <SALONI GARAY - Last Filed: 07/06/21 18:26> - Review of Systems Constitutional: Weakness Eyes: No Symptoms Ears, Nose, & Throat: No Symptoms Respiratory: No Symptoms Cardiac: No Symptoms Abdominal/Gastrointestinal: Abdominal Pain, Nausea, Vomiting, Diarrhea Genitourinary Symptoms: No Symptoms Musculoskeletal: No Symptoms Skin: No Symptoms Neurological: No Symptoms Psychological: No Symptoms Endocrine: No Symptoms Hematologic/Lymphatic: No Symptoms Immunological/Allergic: No Symptoms All Other Systems: Reviewed and Negative <SALONI GARAY - Last Filed: 07/06/21 18:26> - Past Medical History Pertinent Past Medical History: Yes Neurological History: Migraines ENT History: No Pertinent History Cardiac History: Arrhythmia, Other Respiratory History: Asthma Endocrine Medical History: Hypothyroidism Musculoskeletal History: No Pertinent History GI Medical History: GERD History: No Pertinent History Psycho-Social History: Anxiety, Attention Deficit Disorder, Depression Female Reproductive Disorders: No Pertinent History Other Medical History: Bradycardia, hypotension (usual 90s/60s), post depression 2019 - Past Surgical History Past Surgical History: Yes Neuro Surgical History: No Pertinent History Cardiac: Other Respiratory: No Pertinent History Gastrointestinal: Cholecystectomy Genitourinary: No Pertinent History Musculoskeletal: No Pertinent History Female Surgical History: Section, Other Other Surgical History: c section x3, left oopherectomy and tubal removal, Loop crowell device placed approx 2 weeks ago - Social History Smoking Status: Never smoker How long have you smoked: 8 years Exposure to second hand smoke: No Drug Use: none Patient Lives Alone: No Significant Family History: cancer (colon/breast), diabetes, other (Gall bladder disease) - Female History Hx Now: No (tubes and left ovary removed) <SALONI GARAY - Last Filed: 07/06/21 18:26> - Physical Exam General Appearance: no apparent distress, alert, anxiety, obese Eye Exam: PERRL/EOMI, eyes nml inspection Ears, Nose, Throat Exam: normal ENT inspection, moist mucous membranes Neck Exam: normal inspection, non-tender, supple, full range of motion Respiratory Exam: normal breath sounds, lungs clear, airway intact, No chest t enderness, No respiratory distress Cardiovascular Exam: regular rate/rhythm, normal heart sounds, normal peripheral pulses Gastrointestinal/Abdomen Exam: soft, normal bowel sounds, tenderness (Epigastric right upper quadrant) Pelvic Exam: not done Rectal Exam: not done Back Exam: normal inspection, normal range of motion, No CVA tenderness, No vertebral tenderness Extremity Exam: normal inspection, normal range of motion, pelvis stable Neurologic Exam: alert, oriented x 3, cooperative, 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 as tested, normal mood/affect, nml cerebellar function, nml station & gait, sensation nml Skin Exam: normal color, warm, dry Lymphatic Exam: No adenopathy SpO2 Interpretation: normal SpO2: 98 O2 Delivery: Room Air <SALONI GARAY - Last Filed: 07/06/21 18:26> - Nursing Vital Signs Nursing Vital Signs: Initial Vital Signs Temperature 98.3 F 07/06/21 17:58 Pulse Rate 68 07/06/21 17:58 Blood Pressure 143/78 07/06/21 17:58 O2 Sat by Pulse Oximetry 98 07/06/21 17:58 Pain Scale Pain Intensity 0 - Course Nursing assessment & vital signs reviewed: Yes <SALONI GARAY - Last Filed: 07/06/21 18:26> - Course EKG Interpreted by Me: Sinus Rhythm, NORMAL AXIS, NORMAL INTERVALS, Non-specific ST Changes <SURI ALONZO - Last Filed: 07/06/21 23:26> Ordered Tests: Active Orders 24 hr Category Date Time Status EKG-ER Only STAT Care 07/06/21 18:44 Active IV Insertion STAT Care 07/06/21 18:41 Active ABDOMEN AND PELVIS W/0 CONTRAS [CT] Stat Exams 07/06/21 18:42 Taken CHEST WITH CONTRAST [CT] Stat Exams 07/06/21 19:59 Taken AMYLASE Stat Lab 07/06/21 19:14 Completed CBC W DIFF Stat Lab 07/06/21 19:14 Completed CMP Stat Lab 07/06/21 19:14 Completed D-DIMER QUANTITATIVE Stat Lab 07/06/21 19:14 Completed LIPASE Stat Lab 07/06/21 19:14 Completed Lactic Acid Stat Lab 07/06/21 19:11 Completed TROPONIN Q3H Lab 07/06/21 19:14 Completed TROPONIN Q3H Lab 07/07/21 00:45 Ordered TROPONIN Q3H Lab 07/07/21 03:45 Ordered TROPONIN Q3H Lab 07/07/21 06:45 Ordered Medication Summary Discontinued Medications Generic Name Dose Route Start Last Admin Trade Name Freq PRN Reason Stop Dose Admin Diphenhydramine HCl 25 mg 07/06/21 20:49 07/06/21 21:05 Benadryl 50 Mg/Ml IV 07/06/21 20:50 25 mg STAT ONE Administration Diphenhydramine HCl Confirm 07/06/21 21:01 Benadryl 50 Mg/Ml Administered 07/06/21 21:02 Dose 50 mg .ROUTE .STK-MED ONE Hydromorphone HCl 1 mg 07/06/21 18:41 07/06/21 19:04 Hydromorphone 1 Mg/Ml Injection IV 07/06/21 18:42 1 mg STAT ONE Administration Hydromorphone HCl Confirm 07/06/21 18:58 Hydromorphone 1 Mg/Ml Injection Administered 07/06/21 18:59 Dose 1 mg .ROUTE .STK-MED ONE Sodium Chloride 1,000 mls @ 999 mls/hr 07/06/21 18:41 07/06/21 19:03 Sodium Chloride 0.9% 1000 Ml IV 07/06/21 19:41 999 mls/hr .Q1H1M STA Administration Sodium Chloride Confirm 07/06/21 18:58 Sodium Chloride 0.9% 1000 Ml Administered 07/06/21 18:59 Dose 1,000 mls @ ud .ROUTE .STK-MED ONE Metoclopramide HCl 10 mg 07/06/21 20:48 07/06/21 21:04 Reglan 10 Mg/2 Ml IV 07/06/21 20:49 10 mg STAT ONE Administration Metoclopramide HCl Confirm 07/06/21 21:01 Reglan 10 Mg/2 Ml Administered 07/06/21 21:02 Dose 10 mg .ROUTE .STK-MED ONE Ondansetron HCl 4 mg 07/06/21 18:41 07/06/21 19:04 Zofran 4 Mg/2 Ml Vial IV 07/06/21 18:42 4 mg STAT ONE Administration Ondansetron HCl Confirm 07/06/21 18:58 Zofran 4 Mg/2 Ml Vial Administered 07/06/21 18:59 Dose 4 mg .ROUTE .STK-MED ONE Lab/Rad Data: Laboratory Result Diagrams 07/06/21 19:14 07/06/21 19:14 Laboratory Results 07/06/21 07/06/21 07/06/21 Range/Units 19:14 19:14 19:14 WBC (4.0-10.5) K/mm3 RBC (4.1-5.4) M/mm3 Hgb (12.0-16.0) gm/dl Hct (35-47) % MCV (78-100) fl MCH (26-32) pg MCHC (32-36) g/dl RDW (11.5-14.0) % Plt Count (150-450) K/mm3 MPV (7.5-11.0) fl Gran % (36.0-66.0) % Eos # (Auto) (0-0.5) Absolute Lymphs (auto) (1.0-4.6) Absolute Monos (auto) (0.0-1.3) Lymphocytes % (24.0-44.0) % Monocytes % (0.0-12.0) % Eosinophils % (0.00-5.0) % Basophils % (0.0-0.4) % Absolute Granulocytes (1.4-6.9) Basophils # (0-0.4) D-Dimer 527 H* (215-500) ng/mL Sodium 140 (137-145) mmol/L Potassium 3.7 (3.5-5.1) mmol/L Chloride 107 (98-107) mmol/L Carbon Dioxide 24 (22-30) mmol/L Anion Gap 12.3 (5-15) MEQ/L BUN 6 L (7-17) mg/dL Creatinine 0.81 (0.52-1.04) mg/dL Estimated GFR > 60.0 ML/MIN Glucose 83 (74-106) mg/dL Lactic Acid (0.4-2.0) Calcium 8.9 (8.4-10.2) mg/dL Total Bilirubin 0.40 (0.2-1.3) mg/dL AST 34 (14-36) U/L ALT 48 H (0-35) U/L Alkaline Phosphatase 61 (38-126) U/L Troponin I < 0.012 (0.000-0.034) ng/mL Serum Total Protein 7.4 (6.3-8.2) g/dL Albumin 4.3 (3.5-5.0) g/dL Amylase 57 (30-110) U/L Lipase 63 (23-300) U/L 07/06/21 07/06/21 Range/Units 19:14 19:11 WBC 5.3 (4.0-10.5) K/mm3 RBC 5.18 (4.1-5.4) M/mm3 Hgb 13.1 (12.0-16.0) gm/dl Hct 40.4 (35-47) % MCV 78.0 (78-100) fl MCH 25.3 L (26-32) pg MCHC 32.4 (32-36) g/dl RDW 13.8 (11.5-14.0) % Plt Count 219 (150-450) K/mm3 MPV 10.2 (7.5-11.0) fl Gran % 61.7 (36.0-66.0) % Eos # (Auto) 0.09 (0-0.5) Absolute Lymphs (auto) 1.52 (1.0-4.6) Absolute Monos (auto) 0.38 (0.0-1.3) Lymphocytes % 29.0 (24.0-44.0) % Monocytes % 7.2 (0.0-12.0) % Eosinophils % 1.7 (0.00-5.0) % Basophils % 0.4 (0.0-0.4) % Absolute Granulocytes 3.24 (1.4-6.9) Basophils # 0.02 (0-0.4) D-Dimer (215-500) ng/mL Sodium (137-145) mmol/L Potassium (3.5-5.1) mmol/L Chloride (98-107) mmol/L Carbon Dioxide (22-30) mmol/L Anion Gap (5-15) MEQ/L BUN (7-17) mg/dL Creatinine (0.52-1.04) mg/dL Estimated GFR ML/MIN Glucose (74-106) mg/dL Lactic Acid 1.0 (0.4-2.0) Calcium (8.4-10.2) mg/dL Total Bilirubin (0.2-1.3) mg/dL AST (14-36) U/L ALT (0-35) U/L Alkaline Phosphatase (38-126) U/L Troponin I (0.000-0.034) ng/mL Serum Total Protein (6.3-8.2) g/dL Albumin (3.5-5.0) g/dL Amylase (30-110) U/L Lipase (23-300) U/L - Progress Progress: unchanged Counseled pt/family regarding: lab results, diagnosis, need for follow-up, rad results <SALONI GARAY - Last Filed: 07/06/21 18:26> - Progress Progress: improved, re-examined Counseled pt/family regarding: lab results, diagnosis, need for follow-up, rad results <SURI ALONZO - Last Filed: 07/06/21 23:26> - Progress Progress Note: 07/06/21 18:35 This patient is being signed out to Dr. Boby Alonzo at shift change. He is to follow-up on pending lab results and radiographic studies. He will make the final disposition. (SALONI GARAY) 07/06/21 18:52 pt taken over at change of shift from Dr. Garay after introduction and discussion of pending labs and imaging and Hx. Pt reports previous episodes of zuleima tachy and being worked up with event monitor past month, but past week has had RUQ pain and nausea with diarrhea SP jeramie remote. Tender RUQ , prior tachy but none at this time however will check D dimer to be sure with tachy hx recent. 07/06/21 23:18 took a while to get the CT PE and had to recall radiologist to read complete study. taking more time. Pt feels better and advised to f/u PMD for lung nodules and furhter GI w/u. (SURI ALONZO) - Departure Departure Disposition: Home Critical Care Time: No <SALONI GARAY - Last Filed: 07/06/21 18:26> - Departure Departure Disposition: Home Critical Care Time: No <SURI ALONZO - Last Filed: 07/06/21 23:26> - Departure Clinical Impression: Abdominal pain, Diarrhea, abdominal pain unknown etiology - Diarrh, Elevated liver function tests, Pulmonary nodule Condition: Good Referrals: YESICA MARADIAGA MD [Primary Care Provider] - Instructions: Acute Abdomen (Belly Pain), Adult (DC), Diarrhea in Adolescents and Adults, Pulmonary Nodule Additional Instructions: we have not determined a cause for your pain but have found an elevated liver test which needs following up with a GI specialist, and will treat in case of infectious diarrhea. THere is also a lung nodule to be followed up with your Dr. there may be additional pathology evolving undetected by the testing provided so followup is important and return meantime if not improving. Prescriptions: Ciprofloxacin [Cipro 500 MG] 500 mg PO BID #14 tablet
[2021-07-06] MEDS ORDERED: Hydromorphone 1 mg/ml Injection IV ONE (18:41)
[2021-07-06] MEDS ORDERED: Sodium Chloride 0.9% 1000 ML 1,000 ML IV STA (18:41)
[2021-07-06] MEDS ORDERED: Zofran 4 MG/2 ML VIAL IV ONE (18:41)
[2021-07-06] MEDS ORDERED: Hydromorphone 1 mg/ml Injection ONE (18:58)
[2021-07-06] MEDS ORDERED: Sodium Chloride 0.9% 1000 ML 1,000 ML ONE (18:58)
[2021-07-06] MEDS ORDERED: Zofran 4 MG/2 ML VIAL ONE (18:58)
[2021-07-06 19:18] LABS: Absolute Neutrophil Ct (ANC) 3.24 (1.4-6.9); BASOPHIL % 0.4 % (0.0-0.4); Basophil (Absolute #) 0.02 (0-0.4); Eosinophil % 1.7 % (0.00-5.0); Eosinophil (Absolute #) 0.09 (0-0.5); Hematocrit 40.4 % (35-47); Hemoglobin 13.1 gm/dl (12.0-16.0); Lymphocyte (Absolute #) 1.52 (1.0-4.6); Mean Corpuscular Hemoglobin 25.3 pg (26-32); Mean Corpuscular Hgb Concent. 32.4 g/dl (32-36); Mean Platelet Volume 10.2 fl (7.5-11.0); Monocyte (Absolute #) 0.38 (0.0-1.3); Monocytes % 7.2 % (0.0-12.0); Neutrophil % 61.7 % (36.0-66.0); Platelet Count 219 K/mm3 (150-450); Red Blood Count 5.18 M/mm3 (4.1-5.4); Red Cell Distribution Width 13.8 % (11.5-14.0); White Blood Count 5.3 K/mm3 (4.0-10.5)
[2021-07-06 19:28] LABS: ALBUMIN 4.3 g/dL (3.5-5.0); ALKALINE PHOSPHATASE 61 U/L (38-126); AMYLASE 57 U/L (30-110); ANION GAP 12.3 MEQ/L (5-15); BLOOD UREA NITROGEN 6 mg/dL (7-17); CHLORIDE 107 mmol/L (98-107); Calcium 8.9 mg/dL (8.4-10.2); Carbon Dioxide 24 mmol/L (22-30); Creatinine 1 0.81 mg/dL (0.52-1.04); EST GLOMERULAR FILTRATION RATE > 60.0 ML/MIN; Glucose 83 mg/dL (74-106); LIPASE 63 U/L (23-300); Potassium 3.7 mmol/L (3.5-5.1); SGOT/AST 34 U/L (14-36); SGPT/ALT 48 U/L (0-35); SODIUM 140 mmol/L (137-145); Total Protein 7.4 g/dL (6.3-8.2)
[2021-07-06] MEDS ORDERED: Reglan 10 MG/2 ML IV ONE (20:48)
[2021-07-06] MEDS ORDERED: BENADRYL 50 MG/ML IV ONE (20:49)
[2021-07-06] MEDS ORDERED: BENADRYL 50 MG/ML ONE (21:01)
[2021-07-06] MEDS ORDERED: Reglan 10 MG/2 ML ONE (21:01)
[2021-07-06 23:42] VITALS: BP 132/78; PULSE 66; O2SAT 97
--- NOTE | 2021-07-07 06:59 | XRAY ---
Indication: Elevated d-dimer. Multiple contiguous axial images obtained through the chest using 80 cc Isovue 370 contrast and PE protocol. Comparison: June 28, 2021. There is poor opacification of the pulmonary arteries limiting evaluation for pulmonary embolus. No obvious central pulmonary embolus. Heart not enlarged. Aorta is normal in course and caliber. No pathologic mediastinal/hilar lymphadenopathy. Lungs demonstrate stable tiny right middle and right lower lobe noncalcified nodules again probably granulomatous. No suspicious pulmonary mass, infiltrate, or effusion. Bony thorax intact. CT abdomen/pelvis reported separately. Impression: 1. Pulmonary embolus evaluation limited due to poor contrast opacification. No obvious central pulmonary embolus. 2. Stable tiny right middle and right lower lobe noncalcified nodules probably granulomatous. 3. No new or acute cardiopulmonary abnormalities. Comment: Preliminary interpretation made by C. No critical discrepancy.
--- NOTE | 2021-07-07 07:01 | XRAY ---
Indication: Right upper quadrant pain, nausea, diarrhea, and weight loss. Multiple contiguous axial images obtained through the abdomen and pelvis without contrast. Comparison: July 08, 2017. Lung bases demonstrate stable benign 4 mm right subpleural noncalcified nodule. No infiltrate or effusion. Heart not enlarged. Noncontrasted stomach and bowel loops are nonobstructed. Normal appendix. Spleen remains enlarged measuring 14.5 cm. Again cholecystectomy. No free fluid/air. Remaining liver, pancreas, spleen, adrenal glands, kidneys, ureters, bladder, uterus, and aorta are unremarkable for noncontrast exam. Osseous structures intact. No ventral or inguinal hernias. Impression: 1. Again benign right lung base noncalcified micronodule and splenomegaly. 2. Remaining CT abdomen/pelvis without contrast exam is negative. Comment: Preliminary interpretation made by [facility]. No critical discrepancy.
== END 2021-07-06 23:40 | disposition home or self-care (01) ==
LOC: ED 17:52
DX: R10.9 Unspecified abdominal pain (principal); R19.7 Diarrhea, unspecified; R94.5 Abnormal results of liver function studies; R91.1 Solitary pulmonary nodule
CPT/HCPCS: 36000; 36415; 71260; 74176; 80053; 82150; 83605; 83690; 84484; 85025; 85379; 93005; 96374; 96375; 99284; J1170; J1200; J2405

== ENCOUNTER 2021-11-18 19:36 | Emergency (ER) | payer OTHER ==
[2021-11-18] MEDS ORDERED: SUBLIMAZE 100 MCG/2 ML IV ONE (20:24)
[2021-11-18] MEDS ORDERED: Zofran 4 MG/2 ML VIAL IV ONE (20:25)
--- NOTE | 2021-11-18 20:32 | ERPHSYRPT ---
- History of Present Illness Historian: patient Patient Subjective Stated Complaint: "My stomach hurts." Triage Nursing Assessment: . Physician History: 31 yo wf w supra-pubic pain since 15:00. Pain is 8/10 and sharp. Nothing makes the pain better or worse. She denies N/ V/D/hematemesis/diarrhea/dysuria/hematuria/. 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 Pt has had a jeramie/B salpingectomy. Timing/Duration: other (15:00) Quality: sharpness, stabbing Abdominal Pain Onset Location: suprapubic Pain Radiation: no radiation Severity of Pain-Max: severe Severity of Pain-Current: severe Modifying Factors: Improves With: nothing Associated Symptoms: No back, No chest pain, No diaphoresis, No diarrhea, No fever/chills, No fatigue, No headache, No heartburn, No loss of appetite, No nausea, No neck pain, No rash, No shortness of breath, No syncope, No vomiting, No weakness Previous symptoms: no prior history Allergies/Adverse Reactions: ketorolac [From Toradol] Allergy (Severe, Verified 11/18/21 20:07) Hives latex Allergy (Severe, Verified 11/18/21 20:07) STOPPED BREATHING prochlorperazine [From Compazine] Allergy (Severe, Verified 11/18/21 20:07) Hives and shakes Influenza Virus Vaccines Allergy (Mild, Verified 11/18/21 20:07) headache vomiting levothyroxine sodium [From Synthroid] Allergy (Mild, Verified 11/18/21 20:07) Migranes methylphenidate [From Ritalin] Allergy (Verified 11/18/21 20:07) migranes aspirin Adverse Reaction (Mild, Verified 11/18/21 20:07) Vomiting methylprednisolone [From Solu-Medrol] Adverse Reaction (Mild, Verified 11/18/21 20:07) Vomiting medidate Adverse Reaction (Mild, Uncoded 11/18/21 20:07) VOMTIING Home Medications: Lisdexamfetamine Dimesylate [Vyvanse] 40 mg PO DAILY 07/06/21 [History] Omeprazole 20 mg PO DAILY PRN 11/18/21 [History] Thyroid,Pork [[place] Thyroid] 15 mg PO DAILY 11/18/21 [History] Hx Tetanus, Diphtheria Vaccination/Date Given: Yes Hx Influenza Vaccination/Date Given: No Hx Pneumococcal Vaccination/Date Given: No Travel Risk - International Travel Have you traveled outside of the country in past 3 weeks: No - Coronavirus Screening Are you exhibiting any of the following symptoms?: No Close contact with a COVID-19 positive Pt in past 14-21 Days: No - Vaccine Status Have you recieved a Covid-19 vaccination: No - Review of Systems Constitutional: No Symptoms Eyes: No Symptoms Ears, Nose, & Throat: No Symptoms Respiratory: No Symptoms Cardiac: No Symptoms Abdominal/Gastrointestinal: No Symptoms, Abdominal Pain Genitourinary Symptoms: No Symptoms Musculoskeletal: No Symptoms Skin: No Symptoms Neurological: No Symptoms Psychological: No Symptoms Endocrine: No Symptoms Hematologic/Lymphatic: No Symptoms Immunological/Allergic: No Symptoms - Past Medical History Pertinent Past Medical History: Yes Neurological History: Migraines ENT History: No Pertinent History Cardiac History: Arrhythmia, Other Respiratory History: Asthma Endocrine Medical History: Hypothyroidism Musculoskeletal History: No Pertinent History GI Medical History: GERD History: No Pertinent History Psycho-Social History: Anxiety, Attention Deficit Disorder, Depression Female Reproductive Disorders: No Pertinent History Other Medical History: Bradycardia, hypotension (usual 90s/60s), post depression 2019, sleep apnea - Past Surgical History Past Surgical History: Yes Neuro Surgical History: No Pertinent History Cardiac: Other Respiratory: No Pertinent History Gastrointestinal: Cholecystectomy Genitourinary: No Pertinent History Musculoskeletal: No Pertinent History Female Surgical History: Section, Other Other Surgical History: c section x3, left oopherectomy and tubal removal, Loop crowell device placed approx 2 weeks ago - Social History Smoking Status: Never smoker How long have you smoked: 8 years Exposure to second hand smoke: No Drug Use: none Patient Lives Alone: No Significant Family History: cancer (colon/breast), diabetes, other (Gall bladder disease) - Female History Hx Now: No - Nursing Vital Signs Nursing Vital Signs: Initial Vital Signs Pulse Rate 87 11/18/21 19:36 Respiratory Rate 18 11/18/21 19:36 Blood Pressure 130/100 11/18/21 19:36 O2 Sat by Pulse Oximetry 98 11/18/21 19:36 Pain Scale Pain Intensity 3 Hypertensive - Physical Exam General Appearance: no apparent distress Eye Exam: PERRL/EOMI, eyes nml inspection Ears, Nose, Throat Exam: normal ENT inspection, TMs normal, pharynx normal, moist mucous membranes Neck Exam: normal inspection, non-tender, supple, full range of motion, No meningismus, No mass, No Brudzinski, No Kernig's Respiratory Exam: normal breath sounds, lungs clear, airway intact Cardiovascular Exam: regular rate/rhythm, normal heart sounds, normal peripheral pulses, No murmur Gastrointestinal/Abdomen Exam: soft, normal bowel sounds, tenderness (Moderate supra-pubic TTP w guarding, no rebound) Back Exam: normal inspection, normal range of motion, No CVA tenderness Extremity Exam: normal inspection, normal range of motion Neurologic Exam: alert, oriented x 3, cooperative, order worker II-XII nml as tested, normal mood/affect, nml cerebellar function, nml station & gait, sensation nml, No motor deficits, No sensory deficit Skin Exam: normal color, warm, dry Lymphatic Exam: No adenopathy SpO2 Interpretation: normal SpO2: 98 O2 Delivery: Room Air - Course Nursing assessment & vital signs reviewed: Yes - CT Exams Abdomen/Pelvis CT Interpretation: Tele-radiologist Report (CT ab-pelvis nothing acute per telerad/8mm R middle lobe pulmonary nodule/4mm RLL nodule) Ordered Tests: Active Orders 24 hr Category Date Time Status IV Insertion STAT Care 11/18/21 20:23 Completed ABDOMEN AND PELVIS W CONTRAST [CT] Stat Exams 11/18/21 22:15 Taken AMYLASE Stat Lab 11/18/21 20:55 Completed CBC W DIFF Stat Lab 11/18/21 20:55 Completed CMP Stat Lab 11/18/21 20:55 Completed CULTURE,URINE Stat Lab 11/18/21 20:23 Received HCG QUALITATIVE,SERUM Stat Lab 11/18/21 20:55 Completed LIPASE Stat Lab 11/18/21 20:55 Completed UA W/RFX UR CULTURE Stat Lab 11/18/21 20:23 Completed Medication Summary Discontinued Medications Generic Name Dose Route Start Last Admin Trade Name Freq PRN Reason Stop Dose Admin Fentanyl Citrate 50 mcg 11/18/21 20:24 11/18/21 21:11 Fentanyl Citrate 100 Mcg/2 Ml* Vial IV 11/18/21 20:25 50 mcg STAT ONE Administration Fentanyl Citrate Confirm 11/18/21 21:08 Fentanyl Citrate 100 Mcg/2 Ml* Vial Administered 11/18/21 21:09 Dose 100 mcg .ROUTE .STK-MED ONE Ondansetron HCl 4 mg 11/18/21 20:25 11/18/21 21:10 Ondansetron Hcl 4 Mg/2 Ml Vial IV 11/18/21 20:26 4 mg STAT ONE Administration Ondansetron HCl Confirm 11/18/21 21:08 Ondansetron Hcl 4 Mg/2 Ml Vial Administered 11/18/21 21:09 Dose 4 mg .ROUTE .STK-MED ONE Lab/Rad Data: Laboratory Result Diagrams 11/18/21 20:55 11/18/21 20:55 Laboratory Results 11/18/21 11/18/21 11/18/21 Range/Units 20:55 20:55 20:55 WBC 5.6 (4.0-10.5) K/mm3 RBC 5.30 (4.1-5.4) M/mm3 Hgb 13.4 (12.0-16.0) gm/dl Hct 40.8 (35-47) % MCV 77.0 L (78-100) fl MCH 25.3 L (26-32) pg MCHC 32.8 (32-36) g/dl RDW 14.0 (11.5-14.0) % Plt Count 229 (150-450) K/mm3 MPV 10.3 (7.5-11.0) fl Gran % 56.7 (36.0-66.0) % Eos # (Auto) 0.08 (0-0.5) Absolute Lymphs (auto) 1.92 (1.0-4.6) Absolute Monos (auto) 0.39 (0.0-1.3) Lymphocytes % 34.5 (24.0-44.0) % Monocytes % 7.0 (0.0-12.0) % Eosinophils % 1.4 (0.00-5.0) % Basophils % 0.4 (0.0-0.4) % Absolute Granulocytes 3.16 (1.4-6.9) Basophils # 0.02 (0-0.4) Sodium 139 (137-145) mmol/L Potassium 3.5 (3.5-5.1) mmol/L Chloride 106 (98-107) mmol/L Carbon Dioxide 26 (22-30) mmol/L Anion Gap 10.4 (5-15) MEQ/L BUN 12 (7-17) mg/dL Creatinine 0.82 (0.52-1.04) mg/dL Estimated GFR > 60.0 ML/MIN Glucose 88 (74-106) mg/dL Calcium 8.7 (8.4-10.2) mg/dL Total Bilirubin 0.50 (0.2-1.3) mg/dL AST 35 (14-36) U/L ALT 38 H (0-35) U/L Alkaline Phosphatase 63 (38-126) U/L Serum Total Protein 6.8 (6.3-8.2) g/dL Albumin 3.9 (3.5-5.0) g/dL Amylase 50 (30-110) U/L Lipase 89 (23-300) U/L Serum , Qual NEGATIVE (Negative) Urine Color (YELLOW) Urine Appearance (CLEAR) Urine pH (5-6) Ur Specific [place] (1.005-1.025) Urine Protein (Negative) Urine Ketones (NEGATIVE) Urine Blood (0-5) Reymundo/ul Urine Nitrite (NEGATIVE) Urine Bilirubin (NEGATIVE) Urine Urobilinogen (0-1) mg/dL Ur Leukocyte Esterase (NEGATIVE) Urine WBC (Auto) (0-5) /HPF Urine RBC (Auto) (0-2) /HPF U Epithel Cells (Auto) (FEW) /HPF Urine Bacteria (Auto) (NEGATIVE) /HPF Urine Mucus (Auto) (NEGATIVE) /HPF Urine Yeast (Budding) (NEGATIVE) /HPF Urine Culture Reflexed (NO) Urine Glucose (NEGATIVE) mg/dL 11/18/21 Range/Units 20:23 WBC (4.0-10.5) K/mm3 RBC (4.1-5.4) M/mm3 Hgb (12.0-16.0) gm/dl Hct (35-47) % MCV (78-100) fl MCH (26-32) pg MCHC (32-36) g/dl RDW (11.5-14.0) % Plt Count (150-450) K/mm3 MPV (7.5-11.0) fl Gran % (36.0-66.0) % Eos # (Auto) (0-0.5) Absolute Lymphs (auto) (1.0-4.6) Absolute Monos (auto) (0.0-1.3) Lymphocytes % (24.0-44.0) % Monocytes % (0.0-12.0) % Eosinophils % (0.00-5.0) % Basophils % (0.0-0.4) % Absolute Granulocytes (1.4-6.9) Basophils # (0-0.4) Sodium (137-145) mmol/L Potassium (3.5-5.1) mmol/L Chloride (98-107) mmol/L Carbon Dioxide (22-30) mmol/L Anion Gap (5-15) MEQ/L BUN (7-17) mg/dL Creatinine (0.52-1.04) mg/dL Estimated GFR ML/MIN Glucose (74-106) mg/dL Calcium (8.4-10.2) mg/dL Total Bilirubin (0.2-1.3) mg/dL AST (14-36) U/L ALT (0-35) U/L Alkaline Phosphatase (38-126) U/L Serum Total Protein (6.3-8.2) g/dL Albumin (3.5-5.0) g/dL Amylase (30-110) U/L Lipase (23-300) U/L Serum , Qual (Negative) Urine Color YELLOW (YELLOW) Urine Appearance CLOUDY (CLEAR) Urine pH 7.0 (5-6) Ur Specific [place] 1.024 (1.005-1.025) Urine Protein NEGATIVE (Negative) Urine Ketones TRACE (NEGATIVE) Urine Blood NEGATIVE (0-5) Reymundo/ul Urine Nitrite NEGATIVE (NEGATIVE) Urine Bilirubin NEGATIVE (NEGATIVE) Urine Urobilinogen NEGATIVE (0-1) mg/dL Ur Leukocyte Esterase NEGATIVE (NEGATIVE) Urine WBC (Auto) 11-15 (0-5) /HPF Urine RBC (Auto) 3-5 (0-2) /HPF U Epithel Cells (Auto) RARE (FEW) /HPF Urine Bacteria (Auto) NONE (NEGATIVE) /HPF Urine Mucus (Auto) SLIGHT (NEGATIVE) /HPF Urine Yeast (Budding) Few (NEGATIVE) /HPF Urine Culture Reflexed YES (NO) Urine Glucose NEGATIVE (NEGATIVE) mg/dL - Progress Progress Note: 11/18/21 22:58 50umg IV Fentanyl/4mg IV Zofran CT results reviewed w pt Counseled pt/family regarding: lab results, diagnosis, need for follow-up, rad results - Departure Departure Disposition: Home Clinical Impression: UTI (urinary tract infection) during , Suprapubic pain Condition: Stable Critical Care Time: No Referrals: YESICA MARADIAGA MD [Primary Care Provider] - Follow up/PCP as directed Instructions: Urinary Tract Infection, Adult (DC), Acute Abdomen (Belly Pain), Adult (DC), Multiple Pulmonary Nodules Additional Instructions: Start Bactrim DS twice a day for 5 days/Stop Macrobid Follow up with your family MD or cork painter and grader Return to ER for increasing pain or temperature greater than 100.5 Prescriptions: Sulfamethoxazole/Trimethoprim [Bactrim Ds Tablet] 1 each PO BID #10 tablet Nitrofurantoin Macro 100 mg [Macrobid 100MG Capsule] 100 mg PO BID 10 Days #10
[2021-11-18 21:04] LABS: Absolute Neutrophil Ct (ANC) 3.16 (1.4-6.9); Basophil (Absolute #) 0.02 (0-0.4); Eosinophil % 1.4 % (0.00-5.0); Eosinophil (Absolute #) 0.08 (0-0.5); Hematocrit 40.8 % (35-47); Hemoglobin 13.4 gm/dl (12.0-16.0); Lymphocyte (Absolute #) 1.92 (1.0-4.6); Lymphocytes % 34.5 % (24.0-44.0); Mean Corpuscular Hemoglobin 25.3 pg (26-32); Mean Corpuscular Hgb Concent. 32.8 g/dl (32-36); Mean Platelet Volume 10.3 fl (7.5-11.0); Monocyte (Absolute #) 0.39 (0.0-1.3); Neutrophil % 56.7 % (36.0-66.0); Platelet Count 229 K/mm3 (150-450); White Blood Count 5.6 K/mm3 (4.0-10.5)
[2021-11-18] MEDS ORDERED: SUBLIMAZE 100 MCG/2 ML ONE (21:08)
[2021-11-18] MEDS ORDERED: Zofran 4 MG/2 ML VIAL ONE (21:08)
[2021-11-18 21:21] LABS: ALBUMIN 3.9 g/dL (3.5-5.0); ALKALINE PHOSPHATASE 63 U/L (38-126); AMYLASE 50 U/L (30-110); ANION GAP 10.4 MEQ/L (5-15); BLOOD UREA NITROGEN 12 mg/dL (7-17); CHLORIDE 106 mmol/L (98-107); Calcium 8.7 mg/dL (8.4-10.2); Carbon Dioxide 26 mmol/L (22-30); Creatinine 1 0.82 mg/dL (0.52-1.04); EST GLOMERULAR FILTRATION RATE > 60.0 ML/MIN; Glucose 88 mg/dL (74-106); LIPASE 89 U/L (23-300); Potassium 3.5 mmol/L (3.5-5.1); SGOT/AST 35 U/L (14-36); SGPT/ALT 38 U/L (0-35); SODIUM 139 mmol/L (137-145); Total Protein 6.8 g/dL (6.3-8.2)
[2021-11-18 21:31] LABS: Appearance CLOUDY (CLEAR); Bilirubin NEGATIVE (NEGATIVE); Blood NEGATIVE Ery/ul (0-5); Epithelial Cells RARE /HPF (FEW); Glucose NEGATIVE (NEGATIVE); Ketones TRACE (NEGATIVE); Leukocyte Esterase NEGATIVE (NEGATIVE); Mucus SLIGHT /HPF (NEGATIVE); Nitrite NEGATIVE (NEGATIVE); Protein,Urine Dip NEGATIVE (Negative); Specific Gravity 1.024 (1.005-1.025); Urobilinogen NEGATIVE mg/dL (0-1)
[2021-11-18 21:33] LABS: Budding Yeast Few /HPF (NEGATIVE)
[2021-11-18 23:02] VITALS: O2SAT 98
[2021-11-18 23:07] VITALS: BP 118/68; PULSE 61
--- NOTE | 2021-11-19 09:04 | XRAY ---
Indication: Bilateral pelvic pain and nausea. Multiple contiguous axial images obtained through the abdomen and pelvis using 80 cc Isovue 370 contrast. Comparison: July 06, 2021. Lung bases demonstrates stable 4 mm right subpleural and 1 cm right middle lobe noncalcified nodules both favored to be benign. No infiltrate or effusion. Heart not enlarged. Noncontrasted stomach and bowel loops remain nonobstructed again with normal appendix. Again 13.1 cm splenomegaly and previous cholecystectomy. No free fluid/air. Remaining liver, pancreas, spleen, adrenal glands, kidneys, ureters, bladder, uterus, and aorta are unremarkable. No pathologic retroperitoneal lymphadenopathy. Osseous structures intact. Impression: 1. Stable benign right lung base noncalcified nodules and splenomegaly. 2. Remaining CT abdomen/pelvis with contrast exam is again negative. Comment: Preliminary interpretation made by C. No critical discrepancy.
== END 2021-11-18 23:20 | disposition home or self-care (01) ==
LOC: ED 19:36
DX: N39.0 Urinary tract infection, site not specified (principal); R10.2 Pelvic and perineal pain
CPT/HCPCS: 36000; 36415; 74177; 80053; 81001; 81025; 82150; 83690; 85025; 87086; 96374; 96375; 99284; J2405; J3010

== ENCOUNTER 2021-12-22 22:19 | Emergency (ER) | payer OTHER ==
[2021-12-22] MEDS ORDERED: HYDROCODONE-ACETAMIN 10-325 MG PO ONE (23:01)
--- NOTE | 2021-12-22 23:11 | ERPHSYRPT ---
- History of Present Illness Source: patient Exam Limitations: no limitations Patient Subjective Stated Complaint: Patient here for right elbow pain. States that approx one hour prior to arrival at ED, her daughter hit her head off of patient's right elbow. Patient c/o increased pain to elbow if she attempts to move it. She is refusing an ice pack. She did request a pillow to elevate RUE and one was provided for her. Triage Nursing Assessment: Patient ambulated back to ED without difficulties. She is alert and oriented and answering questions appropriately. She entered ED holding right arm across her chest and supporting it with her left hand. Grimacing noted on face of patient when assessing right arm/elbow. No bruising or swelling noted; skin intact to RUE. Right radial pulse present. This nurse did not straightent out arm at the elbow during assessment due to reports of increased pain on movement and not wanting to cause further injury to area. Physician History: 31 yo wf cc of R olecranon pain after 4yo child head butted approx 90 min before arrival at home. Pt is R handed and denies other/previous injury. She denies LOC/Head injury/C,T, and L-spine pain/B Hip pain/Lower extremity pain Occurred: minutes ago (90) Method of Injury: other (Head of 4yo child vs elbow) Quality: constant, aching Severity of Pain-Max: moderate Severity of Pain-Current: moderate Extremities Pain Location: elbow: right Modifying Factors: Improves With: movement Associated Symptoms: none Allergies/Adverse Reactions: ketorolac [From Toradol] Allergy (Severe, Verified 12/22/21 22:40) Hives latex Allergy (Severe, Verified 12/22/21 22:40) STOPPED BREATHING prochlorperazine [From Compazine] Allergy (Severe, Verified 12/22/21 22:40) Hives and shakes Influenza Virus Vaccines Allergy (Mild, Verified 12/22/21 22:40) headache vomiting levothyroxine sodium [From Synthroid] Allergy (Mild, Verified 12/22/21 22:40) Migranes methylphenidate [From Ritalin] Allergy (Verified 12/22/21 22:40) migranes aspirin Adverse Reaction (Mild, Verified 12/22/21 22:40) Vomiting methylprednisolone [From Solu-Medrol] Adverse Reaction (Mild, Verified 12/22/21 22:40) Vomiting medidate Adverse Reaction (Mild, Uncoded 12/22/21 22:40) VOMTIING Home Medications: Lisdexamfetamine Dimesylate [Vyvanse] 40 mg PO DAILY 07/06/21 [History] Omeprazole 20 mg PO DAILY PRN 11/18/21 [History] Thyroid,Pork [[place] Thyroid] 15 mg PO DAILY 11/18/21 [History] Hx Tetanus, Diphtheria Vaccination/Date Given: Yes Hx Influenza Vaccination/Date Given: No (Allergy) Hx Pneumococcal Vaccination/Date Given: No Immunizations Up to Date: Yes Travel Risk - International Travel Have you traveled outside of the country in past 3 weeks: No - Coronavirus Screening Are you exhibiting any of the following symptoms?: No Close contact with a COVID-19 positive Pt in past 14-21 Days: No - Vaccine Status Have you recieved a Covid-19 vaccination: No - Review of Systems Constitutional: No Symptoms Eyes: No Symptoms Ears, Nose, & Throat: No Symptoms Respiratory: No Symptoms Cardiac: No Symptoms Abdominal/Gastrointestinal: No Symptoms Genitourinary Symptoms: No Symptoms Musculoskeletal: Joint Pain (R olecranon) Skin: No Symptoms Neurological: No Symptoms Psychological: No Symptoms Endocrine: No Symptoms Hematologic/Lymphatic: No Symptoms Immunological/Allergic: No Symptoms - Past Medical History Pertinent Past Medical History: Yes Neurological History: Migraines ENT History: No Pertinent History Cardiac History: Arrhythmia, Other Respiratory History: Asthma Endocrine Medical History: Hypothyroidism Musculoskeletal History: No Pertinent History GI Medical History: GERD History: No Pertinent History Psycho-Social History: Anxiety, Attention Deficit Disorder, Depression Female Reproductive Disorders: No Pertinent History Other Medical History: Bradycardia, hypotension (usual 90s/60s), post depression 2019, sleep apnea, PCOS - Past Surgical History Past Surgical History: Yes Neuro Surgical History: No Pertinent History Cardiac: Other Respiratory: No Pertinent History Gastrointestinal: Cholecystectomy Genitourinary: No Pertinent History Musculoskeletal: No Pertinent History Female Surgical History: Section, Other Other Surgical History: c section x3, left oopherectomy and tubal removal, Loop crowell device - Social History Smoking Status: Former smoker How long have you smoked: 8 years Exposure to second hand smoke: No Drug Use: none Patient Lives Alone: No Significant Family History: no pertinent family hx, cancer (colon/breast), diabetes, other (Gall bladder disease) - Female History Hx Last Menstrual Period: 12/15/2021 Hx Now: No - Nursing Vital Signs Nursing Vital Signs: Initial Vital Signs Temperature 97.7 F 12/22/21 22:42 Pulse Rate 80 12/22/21 22:42 Respiratory Rate 18 12/22/21 22:42 Blood Pressure 132/93 12/22/21 22:42 O2 Sat by Pulse Oximetry 97 12/22/21 22:42 Pain Scale Pain Intensity 6 WNL - Physical Exam General Appearance: no apparent distress Eyes, Ears, Nose, Throat Exam: normal ENT inspection Neck Exam: normal inspection, non-tender, supple, full range of motion Cardiovascular/Respiratory Exam: normal breath sounds, regular rate/rhythm, heart sounds normal Abdominal Exam: non-tender, soft Back Exam: normal inspection, normal range of motion, No vertebral tenderness Shoulder Exam: normal inspection, non-tender Elbow/Forearm Exam: bone tenderness (R olecranon TTP/Minimal edema/Good radial pulse, distal sensation, and capillary return) Wrist Exam: normal inspection Hand Exam: normal inspection Neuro/Tendon Exam: normal sensation, normal motor functions, normal tendon functions, responds to pain, no evidence tendon injury, No motor deficit, No sensory deficit Mental Status Exam: alert, oriented x 3, cooperative Skin Exam: normal color, warm, dry SpO2 Interpretation: normal SpO2: 97 O2 Delivery: Room Air - Course Nursing assessment & vital signs reviewed: Yes - Radiology Exams Elbow X-ray Interpretation: Interpreted by me (R olecranon neg for fx per ER read) Ordered Tests: Active Orders 24 hr Category Date Time Status Richie Bandage Application -[facility] STAT Care 12/22/21 23:31 Completed Medication Summary Discontinued Medications Generic Name Dose Route Start Last Admin Trade Name Alis PRN Reason Stop Dose Admin Hydrocodone Bitart/Acetaminophen 1 tablet 12/22/21 23:01 12/22/21 23:41 Hydrocodone/Acetamin 10-325 Mg Tablet PO 12/22/21 23:02 1 tablet STAT ONE Administration Hydrocodone Bitart/Acetaminophen 2 tab 12/22/21 23:32 12/22/21 23:42 Hydrocodone/Apap 5/325 Mg Tablet PO 12/22/21 23:33 2 tab SENT HOME W/ PATIENT ONE Administration Hydrocodone Bitart/Acetaminophen Confirm 12/22/21 23:40 Hydrocodone/Apap 5/325 Mg Tablet Administered 12/22/21 23:41 Dose 2 tab .ROUTE .STK-MED ONE - Progress Progress Note: 12/22/21 23:33 Norco10 po x1 Richie wrap R olecranon per nursing/NVI Norco5 x2 take home Counseled pt/family regarding: diagnosis, need for follow-up, rad results - Departure Departure Disposition: Home Clinical Impression: Contusion of elbow, right Condition: Stable Critical Care Time: No Referrals: YESICA MARADIAGA MD [Primary Care Provider] - Follow up/PCP as directed ORTHO - RUBEN SANTOS NP [NON-STAFF PHY W/O PRIVILEGES] - Follow up/PCP as directed Instructions: Contusion (DC) Additional Instructions: Ice to elbow for 12-24 hours Richie wrap for 3-4 days No lifting over 15 pounds for 5 days Follow up with your family or Ortho clinic Forms: Work/School Release Form Prescriptions: Hydrocodone/Acetaminophen [Hydrocodone-Acetamin 10-325 mg] 1 each PO Q4-6HPRN PRN #5 tablet MDD 4 tabs PRN Reason: Pain
[2021-12-22] MEDS ORDERED: NORCO 5/325 MG PO ONE (23:32)
[2021-12-22] MEDS ORDERED: NORCO 5/325 MG ONE (23:40)
[2021-12-22 23:57] VITALS: BP 130/80; PULSE 76
[2021-12-23 02:49] VITALS: O2SAT 97
--- NOTE | 2021-12-23 08:49 | XRAY ---
Indication: Pain following trauma. Comparison: None 3 view right elbow obtained. No bony, articular, or soft tissue abnormalities.
== END 2021-12-22 23:56 | disposition home or self-care (01) ==
LOC: ED 22:19
DX: S50.01XA Contusion of right elbow, initial encounter (principal); W50.0XXA Accidental hit or strike by another person, initial encounter; I95.9 Hypotension, unspecified; K21.9 Gastro-esophageal reflux disease without esophagitis; Z79.899 Other long term (current) drug therapy; Z79.891 Long term (current) use of opiate analgesic
CPT/HCPCS: 73080; 99284; A9270-GY

== ENCOUNTER 2022-02-17 09:55 | Emergency (ER) | payer OTHER ==
[2022-02-17] MEDS ORDERED: Zofran 4 MG/2 ML VIAL IV ONE ×2 (10:14→12:01)
[2022-02-17] MEDS ORDERED: Hydromorphone 1 mg/ml Injection IV ONE ×2 (10:14→13:06)
[2022-02-17] MEDS ORDERED: Sodium Chloride 0.9% 1000 ML 1,000 ML IV STA ×2 (10:14→12:05)
--- NOTE | 2022-02-17 10:14 | ERPHSYRPT ---
- History of Present Illness Time Seen by Provider: 02/17/22 10:14 Historian: patient Exam Limitations: no limitations Patient Subjective Stated Complaint: Pt states "I had a total hysterectomy a week ago and now I am having bad abdominal pain, nausea, diarrhea." Triage Nursing Assessment: Pt presented alert and oriented X 3, skin pwd. PT ambulates with an upright steady gait, able to speak in clear full sentences pt in no apparent respiratory distress. Pt had hyste[facility] on 02/09/2022 Physician History: This is a 31-year-old obese white female patient of Dr. Maradiaga who presents with first vomiting, then diarrhea, then generalized abdominal pain that began last evening. Patient is status post a total abdominal hysterectomy and bilateral salpingo-oophorectomy done at [facility] on 02/09/2022. Patient has a history of migraine headaches, asthma, chronic arrhythmias, gastroesophageal reflux disease and anxiety issues. She has not been able to hold any liquids down since yesterday. Timing/Duration: yesterday Activities at Onset: none Quality: aching Abdominal Pain Onset Location: generalized abdomen Pain Radiation: no radiation Severity of Pain-Max: moderate Severity of Pain-Current: moderate Modifying Factors: Improves With: vomiting Associated Symptoms: diarrhea, nausea, vomiting Previous symptoms: no prior history, recently seen, recent hospitalization, recently treated Allergies/Adverse Reactions: ketorolac [From Toradol] Allergy (Severe, Verified 12/22/21 22:40) Hives latex Allergy (Severe, Verified 12/22/21 22:40) STOPPED BREATHING prochlorperazine [From Compazine] Allergy (Severe, Verified 12/22/21 22:40) Hives and shakes Influenza Virus Vaccines Allergy (Mild, Verified 12/22/21 22:40) headache vomiting levothyroxine sodium [From Synthroid] Allergy (Mild, Verified 12/22/21 22:40) Migranes methylphenidate [From Ritalin] Allergy (Verified 12/22/21 22:40) migranes aspirin Adverse Reaction (Mild, Verified 12/22/21 22:40) Vomiting methylprednisolone [From Solu-Medrol] Adverse Reaction (Mild, Verified 12/22/21 22:40) Vomiting medidate Adverse Reaction (Mild, Uncoded 12/22/21 22:40) VOMTIING Home Medications: Lisdexamfetamine Dimesylate [Vyvanse] 40 mg PO DAILY 07/06/21 [History] Omeprazole 20 mg PO DAILY PRN 11/18/21 [History] Thyroid,Pork [[place] Thyroid] 30 mg PO DAILY 11/18/21 [History] Hx Tetanus, Diphtheria Vaccination/Date Given: No Hx Influenza Vaccination/Date Given: No Hx Pneumococcal Vaccination/Date Given: No Immunizations Up to Date: Yes Travel Risk - International Travel Have you traveled outside of the country in past 3 weeks: No - Coronavirus Screening Are you exhibiting any of the following symptoms?: No Close contact with a COVID-19 positive Pt in past 14-21 Days: No - Vaccine Status Have you recieved a Covid-19 vaccination: No - Review of Systems Constitutional: No Symptoms Eyes: No Symptoms Ears, Nose, & Throat: No Symptoms Respiratory: No Symptoms Cardiac: No Symptoms Abdominal/Gastrointestinal: Abdominal Pain, Nausea, Vomiting, Diarrhea Genitourinary Symptoms: No Symptoms Musculoskeletal: No Symptoms Skin: No Symptoms Neurological: No Symptoms Psychological: No Symptoms Endocrine: No Symptoms Hematologic/Lymphatic: No Symptoms Immunological/Allergic: No Symptoms All Other Systems: Reviewed and Negative - Past Medical History Pertinent Past Medical History: Yes Neurological History: Migraines ENT History: No Pertinent History Cardiac History: Arrhythmia, Other Respiratory History: Asthma Endocrine Medical History: Hypothyroidism Musculoskeletal History: No Pertinent History GI Medical History: GERD History: No Pertinent History Psycho-Social History: Anxiety, Attention Deficit Disorder, Depression Female Reproductive Disorders: No Pertinent History Other Medical History: Bradycardia, hypotension (usual 90s/60s), post depression 2019, sleep apnea, PCOS - Past Surgical History Past Surgical History: Yes Neuro Surgical History: No Pertinent History Cardiac: Other Respiratory: No Pertinent History Gastrointestinal: Cholecystectomy Genitourinary: No Pertinent History Musculoskeletal: No Pertinent History Female Surgical History: Section, Other Other Surgical History: c section x3, left oopherectomy and tubal removal, Loop crowell device. hysterectomy - Social History Smoking Status: Former smoker How long have you smoked: 8 years Exposure to second hand smoke: No Drug Use: none Patient Lives Alone: No Significant Family History: no pertinent family hx, cancer (colon/breast), adam betes, other (Gall bladder disease) - Female History Hx Last Menstrual Period: hysterectomy Hx Now: No - Nursing Vital Signs Nursing Vital Signs: Initial Vital Signs Temperature 99.2 F 02/17/22 10:03 Pulse Rate 105 H 02/17/22 10:03 Respiratory Rate 20 02/17/22 10:03 Blood Pressure 117/88 02/17/22 10:03 O2 Sat by Pulse Oximetry 98 02/17/22 10:03 Pain Scale Pain Intensity 4 - Physical Exam General Appearance: mild distress, alert, anxiety, obese Eye Exam: PERRL/EOMI, eyes nml inspection Ears, Nose, Throat Exam: normal ENT inspection, moist mucous membranes Neck Exam: normal inspection, non-tender, supple, full range of motion Respiratory Exam: normal breath sounds, lungs clear, airway intact, No chest tenderness, No respiratory distress Cardiovascular Exam: normal peripheral pulses, tachycardia Gastrointestinal/Abdomen Exam: soft, normal bowel sounds, tenderness, guarding Pelvic Exam: not done Rectal Exam: not done Back Exam: normal inspection, normal range of motion, No CVA tenderness, No vertebral tenderness Extremity Exam: normal inspection, normal range of motion, pelvis stable Neurologic Exam: alert, oriented x 3, cooperative, route inspector II-XII nml as tested, no rmal mood/affect, nml cerebellar function, nml station & gait, sensation nml Skin Exam: normal color, warm, dry Lymphatic Exam: No adenopathy SpO2 Interpretation: normal SpO2: 98 O2 Delivery: Room Air - Course Nursing assessment & vital signs reviewed: Yes Ordered Tests: Active Orders 24 hr Category Date Time Status IV Insertion STAT Care 02/17/22 10:14 Active ABDOMEN AND PELVIS W/0 CONTRAS [CT] Stat Exams 02/17/22 10:15 Completed AMYLASE Stat Lab 02/17/22 11:00 Completed CBC W DIFF Stat Lab 02/17/22 11:00 Completed CMP Stat Lab 02/17/22 11:00 Completed LIPASE Stat Lab 02/17/22 11:00 Completed Lactic Acid Stat Lab 02/17/22 10:14 Completed Medication Summary Generic Name Dose Route Start Last Admin Trade Name Freq PRN Reason Stop Dose Admin Sodium Chloride 1,000 mls @ 999 mls/hr 02/17/22 12:05 02/17/22 12:08 Sodium Chloride 0.9% 1000 Ml IV 02/17/22 13:05 999 mls/hr .Q1H1M STA Administration Discontinued Medications Generic Name Dose Route Start Last Admin Trade Name Freq PRN Reason Stop Dose Admin Hydromorphone HCl 1 mg 02/17/22 10:14 02/17/22 10:55 Hydromorphone 1 Mg/1ml Inj 1 Mg/Ml Syringe IV 02/17/22 10:15 1 mg STAT ONE Administration Hydromorphone HCl Confirm 02/17/22 10:51 Hydromorphone 1 Mg/1ml Inj 1 Mg/Ml Syringe Administered 02/17/22 10:52 Dose 1 mg .ROUTE .STK-MED ONE Sodium Chloride 1,000 mls @ 999 mls/hr 02/17/22 10:14 02/17/22 12:00 Sodium Chloride 0.9% 1000 Ml IV 02/17/22 11:14 Infused .Q1H1M STA Infusion Sodium Chloride Confirm 02/17/22 10:51 Sodium Chloride 0.9% 1000 Ml Administered 02/17/22 10:52 Dose 1,000 mls @ ud .ROUTE .STK-MED ONE Sodium Chloride Confirm 02/17/22 12:07 Sodium Chloride 0.9% 1000 Ml Administered 02/17/22 12:08 Dose 1,000 mls @ ud .ROUTE .STK-MED ONE Ondansetron HCl 4 mg 02/17/22 10:14 02/17/22 10:55 Ondansetron Hcl 4 Mg/2 Ml Vial IV 02/17/22 10:15 4 mg STAT ONE Administration Ondansetron HCl Confirm 02/17/22 10:51 Ondansetron Hcl 4 Mg/2 Ml Vial Administered 02/17/22 10:52 Dose 4 mg .ROUTE .STK-MED ONE Ondansetron HCl 4 mg 02/17/22 12:01 02/17/22 12:07 Ondansetron Hcl 4 Mg/2 Ml Vial IV 02/17/22 12:02 4 mg STAT ONE Administration Ondansetron HCl Confirm 02/17/22 12:02 Ondansetron Hcl 4 Mg/2 Ml Vial Administered 02/17/22 12:03 Dose 4 mg .ROUTE .STK-MED ONE Lab/Rad Data: Laboratory Result Diagrams 02/17/22 11:00 02/17/22 11:00 Laboratory Results 02/17/22 02/17/22 02/17/22 Range/Units 11:00 11:00 10:26 WBC 7.4 (4.0-10.5) K/mm3 RBC 5.27 (4.1-5.4) M/mm3 Hgb 13.4 (12.0-16.0) gm/dl Hct 42.1 (35-47) % MCV 79.9 (78-100) fl MCH 25.4 L (26-32) pg MCHC 31.8 L (32-36) g/dl RDW 13.7 (11.5-14.0) % Plt Count 197 (150-450) K/mm3 MPV 10.4 (7.5-11.0) fl Gran % 86.7 H (36.0-66.0) % Eos # (Auto) 0.24 (0-0.5) Absolute Lymphs (auto) 0.35 L (1.0-4.6) Absolute Monos (auto) 0.38 (0.0-1.3) Lymphocytes % 4.7 L (24.0-44.0) % Monocytes % 5.1 (0.0-12.0) % Eosinophils % 3.2 (0.00-5.0) % Basophils % 0.3 (0.0-0.4) % Absolute Granulocytes 6.42 (1.4-6.9) Basophils # 0.02 (0-0.4) Sodium 136 L (137-145) mmol/L Potassium 3.8 (3.5-5.1) mmol/L Chloride 105 (98-107) mmol/L Carbon Dioxide 22 (22-30) mmol/L Anion Gap 12.3 (5-15) MEQ/L BUN 11 (7-17) mg/dL Creatinine 0.64 (0.52-1.04) mg/dL Estimated GFR > 60.0 ML/MIN Glucose 103 (74-106) mg/dL Lactic Acid (0.4-2.0) Calcium 8.4 (8.4-10.2) mg/dL Total Bilirubin 1.00 (0.2-1.3) mg/dL AST 31 (14-36) U/L ALT 47 H (0-35) U/L Alkaline Phosphatase 56 (38-126) U/L Serum Total Protein 6.4 (6.3-8.2) g/dL Albumin 3.6 (3.5-5.0) g/dL Amylase 30 (30-110) U/L Lipase 43 (23-300) U/L Urinalys Dipstick Clnc MAIN LAB Urine Color YELLOW (YELLOW) Urine Appearance CLEAR (CLEAR) Urine pH 7.0 (5-6) Ur Specific [place] 1.020 (1.005-1.025) POC Urine Protein Conf NEGATIVE (Negative) Urine Ketones NEGATIVE (NEGATIVE) Urine Nitrite NEGATIVE (NEGATIVE) Urine Bilirubin NEGATIVE (NEGATIVE) Urine Urobilinogen 0.2 (0-1) mg/dL Urine Leukocytes NEGATIVE (NEGATIVE) Urine WBC (Auto) 3-5 (0-5) /HPF Urine RBC (Auto) NONE (0-2) /HPF U Epithel Cells (Auto) MODERATE (FEW) /HPF Urine Bacteria (Auto) FEW (NEGATIVE) /HPF Urine RBC NEGATIVE (0-5) Reymundo/ul Urine Mucus (Auto) MANY (NEGATIVE) /HPF Ur Culture Indicated? NO Urine Glucose NEGATIVE (NEGATIVE) mg/dL 02/17/22 Range/Units 10:14 WBC (4.0-10.5) K/mm3 RBC (4.1-5.4) M/mm3 Hgb (12.0-16.0) gm/dl Hct (35-47) % MCV (78-100) fl MCH (26-32) pg MCHC (32-36) g/dl RDW (11.5-14.0) % Plt Count (150-450) K/mm3 MPV (7.5-11.0) fl Gran % (36.0-66.0) % Eos # (Auto) (0-0.5) Absolute Lymphs (auto) (1.0-4.6) Absolute Monos (auto) (0.0-1.3) Lymphocytes % (24.0-44.0) % Monocytes % (0.0-12.0) % Eosinophils % (0.00-5.0) % Basophils % (0.0-0.4) % Absolute Granulocytes (1.4-6.9) Basophils # (0-0.4) Sodium (137-145) mmol/L Potassium (3.5-5.1) mmol/L Chloride (98-107) mmol/L Carbon Dioxide (22-30) mmol/L Anion Gap (5-15) MEQ/L BUN (7-17) mg/dL Creatinine (0.52-1.04) mg/dL Estimated GFR ML/MIN Glucose (74-106) mg/dL Lactic Acid 1.6 (0.4-2.0) Calcium (8.4-10.2) mg/dL Total Bilirubin (0.2-1.3) mg/dL AST (14-36) U/L ALT (0-35) U/L Alkaline Phosphatase (38-126) U/L Serum Total Protein (6.3-8.2) g/dL Albumin (3.5-5.0) g/dL Amylase (30-110) U/L Lipase (23-300) U/L Urinalys Dipstick Clnc Urine Color (YELLOW) Urine Appearance (CLEAR) Urine pH (5-6) Ur Specific [place] (1.005-1.025) POC Urine Protein Conf (Negative) Urine Ketones (NEGATIVE) Urine Nitrite (NEGATIVE) Urine Bilirubin (NEGATIVE) Urine Urobilinogen (0-1) mg/dL Urine Leukocytes (NEGATIVE) Urine WBC (Auto) (0-5) /HPF Urine RBC (Auto) (0-2) /HPF U Epithel Cells (Auto) (FEW) /HPF Urine Bacteria (Auto) (NEGATIVE) /HPF Urine RBC (0-5) Reymundo/ul Urine Mucus (Auto) (NEGATIVE) /HPF Ur Culture Indicated? Urine Glucose (NEGATIVE) mg/dL - Progress Progress: improved, pain not gone completely Progress Note: 02/17/22 12:02 CAT scan of the abdomen and pelvis without contrast shows a 4.5 cm cystic mass either ovarian cyst, postoperative hematoma/seroma or lymphocele. An abscess is not completely excluded. There is no free air present. Counseled pt/family regarding: lab results, diagnosis, need for follow-up, rad results - Departure Departure Disposition: Home Clinical Impression: Postoperative abdominal pain, Postoperative vomiting Condition: Stable Critical Care Time: No Referrals: YESICA MARADIAGA MD [Primary Care Provider] - Follow up/PCP as directed Additional Instructions: Drink plenty of clear liquids before advancing your diet. Continue your pain medicine as prescribed if needed. Call your surgeon today and make them aware of your visit here in the emergency department. Follow-up with them for further evaluation and management. Take your medications as prescribed Prescriptions: Ondansetron ODT 4 MG [Zofran Odt 4 mg] 4 mg PO Q6H PRN PRN #10 tablet PRN Reason: Vomiting
[2022-02-17 10:45] LABS: Appearance CLEAR (CLEAR); Bilirubin NEGATIVE (NEGATIVE); Dipstick done @ ? MAIN LAB; Glucose NEGATIVE (NEGATIVE); Ketones NEGATIVE (NEGATIVE); Nitrite NEGATIVE (NEGATIVE); Protein,Urine Dip NEGATIVE (Negative); RBC NEGATIVE Ery/ul (0-5); Urobilinogen 0.2 mg/dL (0-1)
[2022-02-17 10:47] LABS: Bacteria FEW /HPF (NEGATIVE); Epithelial Cells MODERATE /HPF (FEW); Mucus MANY /HPF (NEGATIVE)
[2022-02-17 10:48] LABS: Urine Cultured Indicated? NO
[2022-02-17] MEDS ORDERED: Sodium Chloride 0.9% 1000 ML 1,000 ML ONE ×2 (10:51→12:07)
[2022-02-17] MEDS ORDERED: Zofran 4 MG/2 ML VIAL ONE ×2 (10:51→12:02)
[2022-02-17] MEDS ORDERED: Hydromorphone 1 mg/ml Injection ONE ×2 (10:51→13:08)
[2022-02-17 11:17] LABS: Absolute Neutrophil Ct (ANC) 6.42 (1.4-6.9); Basophil (Absolute #) 0.02 (0-0.4); Eosinophil % 3.2 % (0.00-5.0); Eosinophil (Absolute #) 0.24 (0-0.5); Hematocrit 42.1 % (35-47); Hemoglobin 13.4 gm/dl (12.0-16.0); Lymphocyte (Absolute #) 0.35 (1.0-4.6); Lymphocytes % 4.7 % (24.0-44.0); Mean Cell Volume 79.9 fl (78-100); Mean Corpuscular Hemoglobin 25.4 pg (26-32); Mean Corpuscular Hgb Concent. 31.8 g/dl (32-36); Mean Platelet Volume 10.4 fl (7.5-11.0); Monocyte (Absolute #) 0.38 (0.0-1.3); Monocytes % 5.1 % (0.0-12.0); Neutrophil % 86.7 % (36.0-66.0); Platelet Count 197 K/mm3 (150-450); Red Blood Count 5.27 M/mm3 (4.1-5.4); Red Cell Distribution Width 13.7 % (11.5-14.0); White Blood Count 7.4 K/mm3 (4.0-10.5)
[2022-02-17 11:22] LABS: ALBUMIN 3.6 g/dL (3.5-5.0); ALKALINE PHOSPHATASE 56 U/L (38-126); AMYLASE 30 U/L (30-110); ANION GAP 12.3 MEQ/L (5-15); BLOOD UREA NITROGEN 11 mg/dL (7-17); CHLORIDE 105 mmol/L (98-107); Calcium 8.4 mg/dL (8.4-10.2); Carbon Dioxide 22 mmol/L (22-30); Creatinine 1 0.64 mg/dL (0.52-1.04); EST GLOMERULAR FILTRATION RATE > 60.0 ML/MIN; Glucose 103 mg/dL (74-106); LIPASE 43 U/L (23-300); Potassium 3.8 mmol/L (3.5-5.1); SGOT/AST 31 U/L (14-36); SGPT/ALT 47 U/L (0-35); SODIUM 136 mmol/L (137-145); Total Protein 6.4 g/dL (6.3-8.2)
--- NOTE | 2022-02-17 11:39 | XRAY ---
Indication: Abdomen pain. Post hysterectomy February 09, 2022. Multiple contiguous axial images obtained through the abdomen and pelvis without contrast. Comparison: November 18, 2021 Lung bases demonstrate stable 1 cm right middle lobe and 4 mm peripheral right lower lobe noncalcified nodules again both favored to be benign. No infiltrate or effusion. Heart is not enlarged. Noncontrasted stomach and bowel loops are nonobstructed again with normal appendix. Interval hysterectomy with minimal postsurgical stranding. Right pelvis demonstrates new 4.5 cm cystic mass either ovary cyst, postoperative hematoma/seroma, or lymphocele. Abscess not completely excluded on this noncontrast exam. No free air. Again cholecystectomy clips and 13.3 cm splenomegaly. Remaining liver, pancreas, spleen, adrenal glands, kidneys, ureters, bladder, and aorta are unremarkable for noncontrast exam. Osseous structures remain intact. No ventral or inguinal hernias. Impression: 1. Status post hysterectomy. New 4.5 cm right pelvic cystic mass with partial differential offered above. 2. Again incidental benign right lung noncalcified nodules and splenomegaly. 3. Remaining CT abdomen/pelvis without contrast exam is negative.
[2022-02-17] MEDS ORDERED: TYLENOL 325 MG PO STA (12:53)
[2022-02-17] MEDS ORDERED: PIPERACILLIN/TAZOBACTAM 3.375 GM in Sodium Chloride 100ML MINI-BAG PLUS 100 ML IV ONE (12:53)
[2022-02-17 12:55] VITALS: BP 129/72; PULSE 92; O2SAT 100
[2022-02-17] MEDS ORDERED: TYLENOL 325 MG ONE (12:57)
[2022-02-17] MEDS ORDERED: PIPERACILLIN/TAZOBACTAM IV ONE ×2 (12:57)
[2022-02-17] MEDS ORDERED: Sodium Chloride 100ML MINI-BAG PLUS 100 ML IV ONE (12:57)
[2022-02-17 13:48] LABS: INFLUENZA A NEGATIVE (NEGATIVE); INFLUENZA B NEGATIVE (NEGATIVE); RESPIRATORY SYNCTIAL VIRUS NEGATIVE (Negative); SARS-CoV-2 Xpert Express NEGATIVE (NEGATIVE)
[2022-02-17 15:38] LABS: Slide Review 1 YES
== END 2022-02-17 14:01 | disposition home or self-care (01) ==
LOC: ED 09:55
DX: G89.18 Other acute postprocedural pain (principal); R10.84 Generalized abdominal pain; R11.2 Nausea with vomiting, unspecified; R19.7 Diarrhea, unspecified; R50.9 Fever, unspecified; K21.9 Gastro-esophageal reflux disease without esophagitis; Z79.899 Other long term (current) drug therapy
CPT/HCPCS: 0241U; 36000; 36415; 74176; 80053; 81015; 82150; 83605; 83690; 85025; 87507; 96360; 96361; 96374; 96375; 99285; J1170; J2405; A9270-GY

== ENCOUNTER 2022-03-20 21:10 | Emergency (ER) | payer OTHER ==
[2022-03-20] MEDS ORDERED: KEFLEX 500 MG PO ONE (22:02)
[2022-03-20] MEDS ORDERED: KEFLEX 500 MG ONE (22:05)
--- NOTE | 2022-03-20 22:08 | ERPHSYRPT ---
- History of Present Illness Time Seen by Provider: 03/20/22 22:07 Source: patient Exam Limitations: no limitations Patient Subjective Stated Complaint: Pt states "I just had a pacemaker put in on wednesday. They told me to keep it dry and covered but the bandages and dressings are making me blister." Triage Nursing Assessment: Pt c/o blistering around incision site from the dressing and increased drainage from site, pt had pacemaker placed by Dr. Castellanos on wednesday, pt's incision site uncovered and no drainage noted at this time, pt has blisters noted under the incision site, pt's next appt is next wednesday with Dr. Castellanos, pt is afebrile at home and in the ER, Timing/Duration: yesterday Quality: burning, itchy Severity: moderate Possible Causes: other (rxn to tape at site of pacemaker placement, some skin redness, cannot r/o minor infxn,) Associated Symptoms: denies symptoms Allergies/Adverse Reactions: ketorolac [From Toradol] Allergy (Severe, Verified 03/20/22 21:16) Hives latex Allergy (Severe, Verified 03/20/22 21:16) STOPPED BREATHING prochlorperazine [From Compazine] Allergy (Severe, Verified 03/20/22 21:16) Hives and shakes Influenza Virus Vaccines Allergy (Mild, Verified 03/20/22 21:16) headache vomiting levothyroxine sodium [From Synthroid] Allergy (Mild, Verified 03/20/22 21:16) Migranes methylphenidate [From Ritalin] Allergy (Verified 03/20/22 21:16) migranes aspirin Adverse Reaction (Mild, Verified 03/20/22 21:16) Vomiting methylprednisolone [From Solu-Medrol] Adverse Reaction (Mild, Verified 03/20/22 21:16) Vomiting medidate Adverse Reaction (Mild, Uncoded 12/22/21 22:40) VOMTIING Home Medications: Lisdexamfetamine Dimesylate [Vyvanse] 40 mg PO DAILY 07/06/21 [History] Omeprazole 20 mg PO DAILY PRN 11/18/21 [History] Thyroid,Pork [[place] Thyroid] 30 mg PO DAILY 11/18/21 [History] Hx Tetanus, Diphtheria Vaccination/Date Given: Yes Hx Influenza Vaccination/Date Given: No Hx Pneumococcal Vaccination/Date Given: No Immunizations Up to Date: Yes Travel Risk - International Travel Have you traveled outside of the country in past 3 weeks: No - Coronavirus Screening Are you exhibiting any of the following symptoms?: No Close contact with a COVID-19 positive Pt in past 14-21 Days: No - Vaccine Status Have you recieved a Covid-19 vaccination: No - Review of Systems Constitutional: No Symptoms Eyes: No Symptoms Ears, Nose, & Throat: No Symptoms Respiratory: No Symptoms Cardiac: No Symptoms Abdominal/Gastrointestinal: No Symptoms Genitourinary Symptoms: No Symptoms Musculoskeletal: No Symptoms Skin: No Symptoms Neurological: No Symptoms Psychological: No Symptoms Endocrine: No Symptoms Hematologic/Lymphatic: No Symptoms Immunological/Allergic: No Symptoms All Other Systems: Reviewed and Negative - Past Medical History Pertinent Past Medical History: Yes Neurological History: Migraines ENT History: No Pertinent History Cardiac History: Arrhythmia, Other Respiratory History: Asthma Endocrine Medical History: Hypothyroidism Musculoskeletal History: No Pertinent History GI Medical History: GERD History: No Pertinent History Psycho-Social History: Anxiety, Attention Deficit Disorder, Depression Female Reproductive Disorders: No Pertinent History Other Medical History: Bradycardia, hypotension (usual 90s/60s), post depression 2019, sleep apnea, PCOS - Past Surgical History Past Surgical History: Yes Neuro Surgical History: No Pertinent History Cardiac: Pacemaker, Other Respiratory: No Pertinent History Gastrointestinal: Cholecystectomy Genitourinary: No Pertinent History Musculoskeletal: No Pertinent History Female Surgical History: Section, Other Other Surgical History: c section x3, left oopherectomy and tubal removal, Loop crowell device. hysterectomy - Social History Smoking Status: Former smoker How long have you smoked: 8 years Exposure to second hand smoke: No Drug Use: none Patient Lives Alone: No Significant Family History: no pertinent family hx, cancer (colon/breast), diabetes, other (Gall bladder disease) - Female History Hx Last Menstrual Period: post hysterectomy Hx Now: No - Nursing Vital Signs Nursing Vital Signs: Initial Vital Signs Temperature 97.1 F 03/20/22 21:18 Pulse Rate 70 03/20/22 21:18 Respiratory Rate 18 03/20/22 21:18 Blood Pressure 132/94 03/20/22 21:18 O2 Sat by Pulse Oximetry 99 03/20/22 21:18 Pain Scale Pain Intensity 3 - Physical Exam General Appearance: no apparent distress Eye Exam: PERRL/EOMI Ears, Nose, Throat Exam: normal ENT inspection Neck Exam: normal inspection Respiratory Exam: normal breath sounds Cardiovascular Exam: regular rate/rhythm, other (minor inflammation at pacemaker site may be just rxn to tape, in case minor infxn, rx keflex) Gastrointestinal/Abdomen Exam: soft SpO2: 99 - Course Nursing assessment & vital signs reviewed: Yes Ordered Tests: Medication Summary Discontinued Medications Generic Name Dose Route Start Last Admin Trade Name Alis PRN Reason Stop Dose Admin Cephalexin HCl 500 mg 03/20/22 22:02 03/20/22 22:06 Cephalexin Mh500 Mg Capsule PO 03/20/22 22:03 500 mg STAT ONE Administration Cephalexin HCl Confirm 03/20/22 22:05 Cephalexin Mh500 Mg Capsule Administered 03/20/22 22:06 Dose 500 mg .[facility]TE [facility] [employer] - Progress Progress: improved Progress Note: 03/21/22 06:32 rx keflex to be safe in case some early infxn, use diff tape, recheck - Departure Departure Disposition: Home Clinical Impression: Dermatitis Condition: Stable Critical Care Time: No Referrals: YESICA MARADIAGA MD [Primary Care Provider] - Follow up/PCP as directed Instructions: Dermatitis Additional Instructions: Follow-up with your providers. Prescriptions: Cephalexin Mh 500 mg [Keflex 500 mg] 500 mg PO TID 7 Days #21 cap
[2022-03-20 22:15] VITALS: BP 129/71; PULSE 69
[2022-03-21 06:33] VITALS: O2SAT 99
== END 2022-03-20 22:26 | disposition home or self-care (01) ==
LOC: ED 21:10
DX: L25.9 Unspecified contact dermatitis, unspecified cause (principal); Z79.899 Other long term (current) drug therapy
CPT/HCPCS: 99283; A9270-GY

== ENCOUNTER 2022-06-14 22:46 | Emergency (ER) | payer OTHER ==
[2022-06-14] MEDS ORDERED: Zofran 4 MG/2 ML VIAL IV ONE (23:16)
[2022-06-14] MEDS ORDERED: Sodium Chloride 0.9% 1000 ML 1,000 ML IV STA (23:16)
[2022-06-14] MEDS ORDERED: MORPHINE SULFATE 4 MG INJ IV ONE (23:16)
--- NOTE | 2022-06-14 23:25 | ERPHSYRPT ---
- History of Present Illness Time Seen by Provider: 06/14/22 22:57 Historian: patient Exam Limitations: no limitations Patient Subjective Stated Complaint: PT TO ER WITH COMPLAINTS OF RIGHT FLANK PAIN OFF AND ON X 1 WEEK AND CONSTANT 0900 TODAY. PT DENIES HX OF KIDNEY STONES. Triage Nursing Assessment: PT TO ER BY EMS FOR RIGHT FLANK PAIN. PT STATES PAIN WAS OFF AND ON X 1 WEEK AND CONSTANT SINCE THIS MORNING AROUND 0900. PT STATES SHE HAS NAUSEA BUT NO VOMITING. PT DENIES ANY URINATION ISSUES OR ANY HX OF KIDNEY STONES. PT A&OX4. PT AMBULATORY. PT SKIN PWD. PT STATES PAIN IS 8/10. SHARP AND PRESSURE LIKE. Physician History: 31-year-old female presented in the ER with chief complaint of right flank pain off and on for 1 week and since 9 AM today having constant pain 8/10 dull aching to sharp with radiation to right upper quadrant/back. Report associated nausea but no vomiting. No fever or chills reported. Denies any difficulty urination. No history of kidney stones. Timing/Duration: week(s) (1), intermittent, gradual onset, worse Activities at Onset: rest Quality: sharpness Abdominal Pain Onset Location: flank Pain Radiation: RUQ Severity of Pain-Max: severe Severity of Pain-Current: severe Modifying Factors: Improves With: nothing Associated Symptoms: back, nausea Previous symptoms: no prior history Allergies/Adverse Reactions: ketorolac [From Toradol] Allergy (Severe, Verified 06/14/22 22:55) Hives latex Allergy (Severe, Verified 06/14/22 22:55) STOPPED BREATHING prochlorperazine [From Compazine] Allergy (Severe, Verified 06/14/22 22:55) Hives and shakes Influenza Virus Vaccines Allergy (Mild, Verified 06/14/22 22:55) headache vomiting levothyroxine sodium [From Synthroid] Allergy (Mild, Verified 06/14/22 22:55) Migranes methylphenidate [From Ritalin] Allergy (Verified 06/14/22 22:55) migranes aspirin Adverse Reaction (Mild, Verified 06/14/22 22:55) Vomiting methylprednisolone [From Solu-Medrol] Adverse Reaction (Mild, Verified 06/14/22 22:55) Vomiting medidate Adverse Reaction (Mild, Uncoded 06/14/22 22:55) VOMTIING Home Medications: Lisdexamfetamine Dimesylate [Vyvanse] 40 mg PO DAILY 07/06/21 [History] Omeprazole 20 mg PO DAILY PRN 11/18/21 [History] Thyroid,Pork [[place] Thyroid] 30 mg PO DAILY 11/18/21 [History] Hx Tetanus, Diphtheria Vaccination/Date Given: Yes Hx Influenza Vaccination/Date Given: No Hx Pneumococcal Vaccination/Date Given: No Travel Risk - International Travel Have you traveled outside of the country in past 3 weeks: No - Coronavirus Screening Are you exhibiting any of the following symptoms?: No Close contact with a COVID-19 positive Pt in past 14-21 Days: No - Vaccine Status Have you recieved a Covid-19 vaccination: No - Review of Systems Constitutional: No Symptoms Ears, Nose, & Throat: No Symptoms Respiratory: No Symptoms Cardiac: No Symptoms Abdominal/Gastrointestinal: Abdominal Pain, Nausea Genitourinary Symptoms: Flank Pain Musculoskeletal: No Symptoms Skin: No Symptoms Neurological: No Symptoms Psychological: No Symptoms Endocrine: No Symptoms Hematologic/Lymphatic: No Symptoms Immunological/Allergic: No Symptoms - Past Medical History Pertinent Past Medical History: Yes Neurological History: Migraines ENT History: No Pertinent History Cardiac History: Arrhythmia, Other Respiratory History: Asthma Endocrine Medical History: Hypothyroidism Musculoskeletal History: No Pertinent History GI Medical History: GERD History: No Pertinent History Psycho-Social History: Anxiety, Attention Deficit Disorder, Depression Female Reproductive Disorders: No Pertinent History Other Medical History: Bradycardia, hypotension (usual 90s/60s), post depression 2019, sleep apnea, PCOS - Past Surgical History Past Surgical History: Yes Neuro Surgical History: No Pertinent History Cardiac: Pacemaker, Other Respiratory: No Pertinent History Gastrointestinal: Cholecystectomy Genitourinary: No Pertinent History Musculoskeletal: No Pertinent History Female Surgical History: Section, Other Other Surgical History: c section x3, left oopherectomy and tubal removal, Loop crowell device. hysterectomy - Social History Smoking Status: Former smoker How long have you smoked: 8 years Exposure to second hand smoke: No Drug Use: none Patient Lives Alone: No Significant Family History: no pertinent family hx, cancer (colon/breast), diabetes, other (Gall bladder disease) - Female History Hx Now: No - Nursing Vital Signs Nursing Vital Signs: Initial Vital Signs Temperature 97.2 F 06/14/22 22:48 Pulse Rate 60 06/14/22 22:48 Respiratory Rate 22 06/14/22 22:48 Blood Pressure 193/99 06/14/22 22:48 O2 Sat by Pulse Oximetry 100 06/14/22 22:48 Pain Scale Pain Intensity 5 - Physical Exam General Appearance: no apparent distress, alert Eye Exam: PERRL/EOMI Ears, Nose, Throat Exam: normal ENT inspection Neck Exam: normal inspection Respiratory Exam: normal breath sounds, lungs clear Cardiovascular Exam: regular rate/rhythm, normal heart sounds Gastrointestinal/Abdomen Exam: soft, normal bowel sounds, tenderness (Right flank/right upper quadrant) Back Exam: normal inspection, normal range of motion, CVA tenderness (Right side) Extremity Exam: normal inspection, normal range of motion Neurologic Exam: alert, oriented x 3, cooperative, 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 II-XII nml as tested Skin Exam: normal color SpO2 Interpretation: normal SpO2: 100 O2 Delivery: Room Air Ordered Tests: Active Orders 24 hr Category Date Time Status IV Insertion STAT Care 06/14/22 23:16 Active NPO (ED) STAT Care 06/14/22 23:16 Active ABDOMEN AND PELVIS W/0 CONTRAS [CT] Stat Exams 06/14/22 23:17 Taken CBC W DIFF Stat Lab 06/14/22 23:39 Completed CMP Stat Lab 06/14/22 23:39 Completed LIPASE Stat Lab 06/14/22 23:39 Completed UA W/RFX CULTURE Stat Lab 06/15/22 00:13 Completed Medication Summary Discontinued Medications Generic Name Dose Route Start Last Admin Trade Name Alis PRN Reason Stop Dose Admin Sodium Chloride 1,000 mls @ 999 mls/hr 06/14/22 23:16 06/14/22 23:36 Sodium Chloride 0.9% 1000 Ml IV 06/15/22 00:16 999 mls/hr .Q1H1M STA Administration Sodium Chloride Confirm 06/14/22 23:33 Sodium Chloride 0.9% 1000 Ml Administered 06/14/22 23:34 Dose 1,000 mls @ ud .ROUTE .STK-MED ONE Morphine Sulfate 4 mg 06/14/22 23:16 06/14/22 23:36 Morphine Sulfate 4 Mg/Ml Injection IV 06/14/22 23:17 4 mg STAT ONE Administration Morphine Sulfate Confirm 06/14/22 23:33 Morphine Sulfate 4 Mg/Ml Injection Administered 06/14/22 23:34 Dose 4 mg .ROUTE .STK-MED ONE Ondansetron HCl 4 mg 06/14/22 23:16 06/14/22 23:35 Ondansetron Hcl 4 Mg/2 Ml Vial IV 06/14/22 23:17 4 mg STAT ONE Administration Ondansetron HCl Confirm 06/14/22 23:33 Ondansetron Hcl 4 Mg/2 Ml Vial Administered 06/14/22 23:34 Dose 4 mg .ROUTE .STK-MED ONE Lab/Rad Data: Laboratory Result Diagrams 06/14/22 23:39 06/14/22 23:39 Laboratory Results 06/15/22 06/14/22 06/14/22 Range/Units 00:13 23:39 23:39 WBC 5.8 (4.0-10.5) x10^3/uL RBC 4.75 (4.1-5.4) x10^6/uL Hgb 12.0 (12.0-16.0) g/dL Hct 37.7 (35-47) % MCV 79.4 (78-100) fL MCH 25.3 L (26-32) pg MCHC 31.8 L (32-36) g/dL RDW 13.2 (11.5-14.0) % Plt Count 216 (150-450) x10^3/uL MPV 10.0 (7.5-11.0) fL Gran % 56.9 (36.0-66.0) % Immature Gran % (Auto) 0.2 (0.00-0.4) % Nucleat RBC Rel Count 0.0 (0.00-0.1) % Eos # (Auto) 0.18 (0-0.5) x10^3/uL Immature Gran # (Auto) 0.01 (0.00-0.03) x10^3u/L Absolute Lymphs (auto) 1.92 (1.0-4.6) x10^3/uL Absolute Monos (auto) 0.35 (0.0-1.3) x10^3/uL Absolute Nucleated RBC 0.00 (0.00-0.01) x10^3u/L Lymphocytes % 33.4 (24.0-44.0) % Monocytes % 6.1 (0.0-12.0) % Eosinophils % 3.1 (0.00-5.0) % Basophils % 0.3 (0.0-0.4) % Absolute Granulocytes 3.27 (1.4-6.9) x10^3/uL Basophils # 0.02 (0-0.4) x10^3/uL Sodium 138 (137-145) mmol/L Potassium 3.7 (3.5-5.1) mmol/L Chloride 106 (98-107) mmol/L Carbon Dioxide 24 (22-30) mmol/L Anion Gap 11.3 (5-15) MEQ/L BUN 12 (7-17) mg/dL Creatinine 0.78 (0.52-1.04) mg/dL Estimated GFR > 60.0 ML/MIN Glucose 94 (74-106) mg/dL Calcium 8.6 (8.4-10.2) mg/dL Total Bilirubin 0.40 (0.2-1.3) mg/dL AST 27 (14-36) U/L ALT 23 (0-35) U/L Alkaline Phosphatase 62 (38-126) U/L Serum Total Protein 6.9 (6.3-8.2) g/dL Albumin 3.7 (3.5-5.0) g/dL Lipase 87 (23-300) U/L Urinalys Dipstick Clnc MAIN LAB Urine Color YELLOW (YELLOW) Urine Appearance CLEAR (CLEAR) Urine pH 5.5 (5-6) Ur Specific [place] 1.015 (1.005-1.025) POC Urine Protein Conf NEGATIVE (Negative) Urine Ketones NEGATIVE (NEGATIVE) Urine Nitrite NEGATIVE (NEGATIVE) Urine Bilirubin NEGATIVE (NEGATIVE) Urine Urobilinogen 0.2 (0-1) mg/dL Urine Leukocytes NEGATIVE (NEGATIVE) Urine WBC (Auto) 6-10 (0-5) /HPF Urine RBC (Auto) NONE (0-2) /HPF U Epithel Cells (Auto) NONE (FEW) /HPF Urine Bacteria (Auto) NONE (NEGATIVE) /HPF Urine RBC NEGATIVE (0-5) Reymundo/ul Ur Culture Indicated? NO Urine Glucose NEGATIVE (NEGATIVE) mg/dL - Progress Progress: improved, re-examined Progress Note: 06/15/22 01:53 31-year-old is evaluated for right flank pain. She is given fluids and symptomatic treatment for pain, on reevaluation feeling better. She has a normal white count, grossly unremarkable chemistries. No definite UTI. CT showed some element of constipation/fecal stasis in the ascending colon, right ovarian cyst and mild worsening of splenomegaly which patient is aware of in the past. No obstruction or perforation. No stone, hydronephrosis/pyelonephritis. Recommended taking Tylenol/ibuprofen and outpatient follow-up. Discussed signs symptoms of worsening needing return to ER which she seems understanding. Stable for discharge. Counseled pt/family regarding: lab results, diagnosis, need for follow-up, rad results - Departure Departure Disposition: Home Clinical Impression: Right flank pain, Splenomegaly, Ovarian cyst Condition: Stable Critical Care Time: No Referrals: YESICA MARADIAGA MD [Primary Care Provider] - Follow up/PCP as directed (1-2 days for reevaluation) ALIZA WEBER DO [ACTIVE STAFF] - Follow up/PCP as directed (1 to 2 days for reevaluation of ovarian cyst) Instructions: Flank Pain Additional Instructions: Take Tylenol/ibuprofen as needed for pain. Follow-up with primary care for reevaluation. Return to ER for any worsening. Follow-up with [facility] for ovarian cyst.
[2022-06-14] MEDS ORDERED: Zofran 4 MG/2 ML VIAL ONE (23:33)
[2022-06-14] MEDS ORDERED: MORPHINE SULFATE 4 MG INJ ONE (23:33)
[2022-06-14] MEDS ORDERED: Sodium Chloride 0.9% 1000 ML 1,000 ML ONE (23:33)
[2022-06-14 23:41] LABS: Absolute Neutrophil Ct (ANC) 3.27 x10^3/uL (1.4-6.9); Basophil (Absolute #) 0.02 x10^3/uL (0-0.4); Eosinophil % 3.1 % (0.00-5.0); Eosinophil (Absolute #) 0.18 x10^3/uL (0-0.5); Hematocrit 37.7 % (35-47); Lymphocyte (Absolute #) 1.92 x10^3/uL (1.0-4.6); Lymphocytes % 33.4 % (24.0-44.0); Mean Cell Volume 79.4 fL (78-100); Mean Corpuscular Hemoglobin 25.3 pg (26-32); Mean Corpuscular Hgb Concent. 31.8 g/dL (32-36); Monocyte (Absolute #) 0.35 x10^3/uL (0.0-1.3); Monocytes % 6.1 % (0.0-12.0); Neutrophil % 56.9 % (36.0-66.0); Platelet Count 216 x10^3/uL (150-450); Red Blood Count 4.75 x10^6/uL (4.1-5.4); Red Cell Distribution Width 13.2 % (11.5-14.0); White Blood Count 5.8 x10^3/uL (4.0-10.5)
[2022-06-14 23:53] LABS: ALBUMIN 3.7 g/dL (3.5-5.0); ALKALINE PHOSPHATASE 62 U/L (38-126); ANION GAP 11.3 MEQ/L (5-15); BLOOD UREA NITROGEN 12 mg/dL (7-17); CHLORIDE 106 mmol/L (98-107); Calcium 8.6 mg/dL (8.4-10.2); Carbon Dioxide 24 mmol/L (22-30); Creatinine 1 0.78 mg/dL (0.52-1.04); EST GLOMERULAR FILTRATION RATE > 60.0 ML/MIN; Glucose 94 mg/dL (74-106); LIPASE 87 U/L (23-300); Potassium 3.7 mmol/L (3.5-5.1); SGOT/AST 27 U/L (14-36); SGPT/ALT 23 U/L (0-35); SODIUM 138 mmol/L (137-145); Total Protein 6.9 g/dL (6.3-8.2)
[2022-06-15 01:12] VITALS: BP 146/93; PULSE 63
[2022-06-15 01:32] LABS: Appearance CLEAR (CLEAR); Bilirubin NEGATIVE (NEGATIVE); Dipstick done @ ? MAIN LAB; Glucose NEGATIVE (NEGATIVE); Ketones NEGATIVE (NEGATIVE); Nitrite NEGATIVE (NEGATIVE); Ph 5.5 (5-6); Protein,Urine Dip NEGATIVE (Negative); RBC NEGATIVE Ery/ul (0-5); Specific Gravity 1.015 (1.005-1.025); Urobilinogen 0.2 mg/dL (0-1)
[2022-06-15 01:35] LABS: Urine Cultured Indicated? NO
[2022-06-15 01:55] VITALS: O2SAT 100
--- NOTE | 2022-06-15 08:43 | XRAY ---
Indication: Right flank pain. Multiple contiguous axial images obtained through the abdomen and pelvis without contrast. Comparison: February 17, 2022 Lung bases demonstrate stable 4 mm peripheral right lower lobe noncalcified nodule. No infiltrate or effusion. Heart not enlarged with new pacer lead. Noncontrasted stomach and bowel loops are nonobstructed again with normal appendix. Again partial hysterectomy. Previous 4.5 cm right ovary cyst now measures 2.2 cm. No free fluid/air. Again cholecystectomy and 13 cm splenomegaly. Remaining liver, pancreas, spleen, adrenal glands, kidneys, ureters, bladder, and aorta are unremarkable for noncontrast exam. Osseous structures intact. Impression: 1. Right ovary cyst appears smaller now measuring 2.2 cm. 2. Stable 4 mm right lower lobe noncalcified nodule and splenomegaly. 3. Remaining CT abdomen/pelvis without contrast exam is negative. Comment: Preliminary interpretation made by [facility]. No critical discrepancy.
== END 2022-06-15 02:00 | disposition home or self-care (01) ==
LOC: ED 22:46
DX: R16.1 Splenomegaly, not elsewhere classified (principal); N83.201 Unspecified ovarian cyst, right side; R10.9 Unspecified abdominal pain; R11.0 Nausea; Z79.899 Other long term (current) drug therapy; Z28.310 Unvaccinated for COVID-19
CPT/HCPCS: 36000; 36415; 74176; 80053; 81015; 83690; 85025; 96360; 96374; 96375; 99284; J2270; J2405

== ENCOUNTER 2022-09-01 10:33 | Observation (INO) | payer OTHER ==
[2022-09-01 11:48] LABS: Absolute Neutrophil Ct (ANC) 10.98 x10^3/uL (1.4-6.9); Basophil (Absolute #) 0.01 x10^3/uL (0-0.4); Eosinophil (Absolute #) 0 x10^3/uL (0-0.5); Hematocrit 39.2 % (35-47); Hemoglobin 12.6 g/dL (12.0-16.0); Lymphocyte (Absolute #) 1.12 x10^3/uL (1.0-4.6); Lymphocytes % 8.9 % (24.0-44.0); Mean Cell Volume 77.8 fL (78-100); Mean Corpuscular Hgb Concent. 32.1 g/dL (32-36); Mean Platelet Volume 9.5 fL (7.5-11.0); Monocyte (Absolute #) 0.36 x10^3/uL (0.0-1.3); Monocytes % 2.9 % (0.0-12.0); Neutrophil % 87.7 % (36.0-66.0); Platelet Count 307 x10^3/uL (150-450); Red Blood Count 5.04 x10^6/uL (4.1-5.4); Red Cell Distribution Width 12.5 % (11.5-14.0); White Blood Count 12.5 x10^3/uL (4.0-10.5)
[2022-09-01 12:00] LABS: ALBUMIN 4.1 g/dL (3.5-5.0); ALKALINE PHOSPHATASE 56 U/L (38-126); ANION GAP 15.5 MEQ/L (5-15); BLOOD UREA NITROGEN 9 mg/dL (7-17); CHLORIDE 107 mmol/L (98-107); Carbon Dioxide 20 mmol/L (22-30); Creatinine 1 0.67 mg/dL (0.52-1.04); EST GLOMERULAR FILTRATION RATE > 60.0 ML/MIN; Glucose 125 mg/dL (74-106); Potassium 3.9 mmol/L (3.5-5.1); SGOT/AST 22 U/L (14-36); SODIUM 139 mmol/L (137-145); Total Protein 7.4 g/dL (6.3-8.2)
--- NOTE | 2022-09-01 12:06 | XRAY ---
Indication: Congestion. History asthma. Comparison: April 18, 2022 PA/lateral chest less inflated and remains clear. Heart not enlarged again with left pacemaker. Bony thorax intact. No new/acute findings.
[2022-09-01 12:07] LABS: SGPT/ALT 33 U/L (0-35)
[2022-09-01] MEDS ORDERED: NON-FORMULARY ITEM (Omeprazole [Omeprazole] 20 MG Capsule.Dr) PO PRN (12:17)
[2022-09-01] MEDS ORDERED: VENTOLIN COMMON CANISTER IH PRN (12:17)
[2022-09-01] MEDS ORDERED: Protonix 40MG Tablet PO PRN (12:21)
[2022-09-01 12:24] LABS: INFLUENZA A NEGATIVE (NEGATIVE); INFLUENZA B NEGATIVE (NEGATIVE); RESPIRATORY SYNCTIAL VIRUS NEGATIVE (Negative); SARS-CoV-2 Xpert Express NEGATIVE (NEGATIVE)
[2022-09-01] MEDS ORDERED: MEDICATION INTERVENTION MC SCH (12:30)
[2022-09-01] MEDS: Levofloxacin 500MG/100ML D5W 500 MG/100 ML BAG IV SCH (12:50)
[2022-09-01] MEDS: NON-FORMULARY ITEM PO SCH (12:50)
[2022-09-01] MEDS ORDERED: TYLENOL EXTRA STRENGTH 500 MG PO PRN (13:19)
[2022-09-01] MEDS ORDERED: DUONEB 0.5-3 MG/3 ml Neb IH ONE (13:30)
[2022-09-01] MEDS: DUONEB 0.5-3 MG/3 ml Neb IH PRN (13:38)
[2022-09-01] MEDS ORDERED: Zofran 4 MG/2 ML VIAL IV PRN (16:19)
[2022-09-01] MEDS ORDERED: Mucinex 600MG ER Tabs PO ONE (18:53)
[2022-09-01] MEDS: Mucinex 600MG ER Tabs PO SCH (18:54)
[2022-09-01] MEDS ORDERED: MOTRIN 600 MG PO PRN (19:02)
[2022-09-01] MEDS: Ativan 2 MG/1 ML VIAL IV PRN (19:08)
[2022-09-02] MEDS: Ativan 2 MG/1 ML VIAL IV PRN (04:18)
[2022-09-02 05:13] LABS: Absolute Neutrophil Ct (ANC) 3.33 x10^3/uL (1.4-6.9); Basophil (Absolute #) 0.02 x10^3/uL (0-0.4); Eosinophil (Absolute #) 0.06 x10^3/uL (0-0.5); Hematocrit 36.4 % (35-47); Hemoglobin 11.5 g/dL (12.0-16.0); Lymphocyte (Absolute #) 2.25 x10^3/uL (1.0-4.6); Mean Corpuscular Hemoglobin 24.9 pg (26-32); Mean Corpuscular Hgb Concent. 31.6 g/dL (32-36); Mean Platelet Volume 9.8 fL (7.5-11.0); Monocyte (Absolute #) 0.23 x10^3/uL (0.0-1.3); Monocytes % 3.9 % (0.0-12.0); Neutrophil % 56.3 % (36.0-66.0); Platelet Count 223 x10^3/uL (150-450); Red Blood Count 4.61 x10^6/uL (4.1-5.4); Red Cell Distribution Width 13.1 % (11.5-14.0); White Blood Count 5.9 x10^3/uL (4.0-10.5)
[2022-09-02 07:58] LABS: ANION GAP 9.4 MEQ/L (5-15); BLOOD UREA NITROGEN 13 mg/dL (7-17); CHLORIDE 109 mmol/L (98-107); Carbon Dioxide 26 mmol/L (22-30); Creatinine 1 0.83 mg/dL (0.52-1.04); EST GLOMERULAR FILTRATION RATE > 60.0 ML/MIN; Glucose 82 mg/dL (74-106); Potassium 3.8 mmol/L (3.5-5.1); SODIUM 140 mmol/L (137-145)
[2022-09-02] MEDS: Levofloxacin 500MG/100ML D5W 500 MG/100 ML BAG IV SCH (09:52)
[2022-09-02] MEDS: Mucinex 600MG ER Tabs PO SCH ×2 (09:52→23:34)
[2022-09-02] MEDS: NON-FORMULARY ITEM PO SCH (09:52)
[2022-09-02] MEDS ORDERED: LISDEXAMFETAMINE DIMESYLATE 50 MG PO SCH (10:00)
[2022-09-02] MEDS ORDERED: THYROID PORK 15 MG PO SCH (10:00)
[2022-09-02] MEDS: DUONEB 0.5-3 MG/3 ml Neb IH PRN ×2 (10:16→17:33)
[2022-09-02] MEDS: Ativan 1 MG PO PRN ×3 (11:26→23:34)
--- NOTE | 2022-09-02 20:11 | PCM.HP.ADD ---
Addendum to History & Physical - History & Physical Addendum Addendum to History & Physical: This certifies that the History & Physical in the electronic chart reflects the current health status of the patient. If there are changes in the H&P these changes/exceptions are listed as follows.
--- NOTE | 2022-09-02 20:16 | PCM.NOTE ---
Date and Time: 09/02/222010 Subjective Assessment: still c/o cough and shortness of breath - Review of Systems Constitutional: No Fever, No Chills Eyes: No Symptoms Ears, Nose, & Throat: No Symptoms Respiratory: Cough, Short Of Breath, Wheezing Cardiac: No Chest Pain, No Edema, No Syncope Abdominal/Gastrointestinal: No Abdominal Pain, No Nausea, No Vomiting, No Diarrhea Genitourinary Symptoms: No Dysuria Musculoskeletal: No Back Pain, No Neck Pain Skin: No Rash Neurological: No Dizziness, No Focal Weakness, No Sensory Changes Psychological: No Symptoms Endocrine: No Symptoms Hematologic/Lymphatic: No Symptoms Immunological/Allergic: No Symptoms Objective Exam General Appearance: no apparent distress, alert Neurologic Exam: alert, oriented x 3, cooperative, normal mood/affect, nml cerebellar function, sensation nml, No motor deficits Skin Exam: normal color, warm, dry Eye Exam: PERRL, EOMI, eyes nml inspection Ears, Nose, Throat Exam: normal ENT inspection, pharynx normal, moist mucous membranes Neck Exam: normal inspection, non-tender, supple, full range of motion Respiratory Exam: diminished breath sounds, wheezing, No respiratory distress Cardiovascular Exam: regular rate/rhythm, normal heart sounds Gastrointestinal/Abdomen Exam: soft, No tenderness, No mass Extremity Exam: normal inspection, normal range of motion Back Exam: normal inspection, normal range of motion, No CVA tenderness, No vertebral tenderness Pelvic Exam: deferred Rectal Exam: deferred OBJECTIVE DATA Vital Signs: Vital Signs - 24 hr Temp Pulse Resp BP BP Pulse Ox 09/02/22 19:52 97.8 F 107 H 20 134/93 99 09/02/22 17:36 62 20 97 09/02/22 16:00 97.8 F 61 17 121/70 97 09/02/22 11:19 97.7 F 72 18 115/60 97 09/02/22 10:17 68 18 98 09/02/22 07:17 96.9 F 67 17 117/60 100 09/02/22 04:18 60 17 121/54 09/02/22 04:00 97.1 F 60 17 121/54 99 09/02/22 00:00 96.8 F 61 17 127/64 100 09/01/22 23:30 100 Pain Assessment - Last Documented Pain Intensity 0 Pain Scale Used FLACC Intake and Output: Intake & Output 08/31/22 09/01/22 09/02/22 09/03/22 11:59 11:59 11:59 11:59 Intake Total 1330 600 Balance 1330 600 Weight 171.2 kg Lab Results: Lab Results-Last 24 Hours 09/02/22 09/02/22 Range/Units 04:30 04:30 WBC 5.9 (4.0-10.5) x10^3/uL RBC 4.61 (4.1-5.4) x10^6/uL Hgb 11.5 L (12.0-16.0) g/dL Hct 36.4 (35-47) % MCV 79.0 (78-100) fL MCH 24.9 L (26-32) pg MCHC 31.6 L (32-36) g/dL RDW 13.1 (11.5-14.0) % Plt Count 223 (150-450) x10^3/uL MPV 9.8 (7.5-11.0) fL Gran % 56.3 (36.0-66.0) % Immature Gran % (Auto) 0.5 H (0.00-0.4) % Nucleat RBC Rel Count 0.0 (0.00-0.1) % Eos # (Auto) 0.06 (0-0.5) x10^3/uL Immature Gran # (Auto) 0.03 (0.00-0.03) x10^3u/L Absolute Lymphs (auto) 2.25 (1.0-4.6) x10^3/uL Absolute Monos (auto) 0.23 (0.0-1.3) x10^3/uL Absolute Nucleated RBC 0.00 (0.00-0.01) x10^3u/L Lymphocytes % 38.0 (24.0-44.0) % Monocytes % 3.9 (0.0-12.0) % Eosinophils % 1.0 (0.00-5.0) % Basophils % 0.3 (0.0-0.4) % Absolute Granulocytes 3.33 (1.4-6.9) x10^3/uL Basophils # 0.02 (0-0.4) x10^3/uL Sodium 140 (137-145) mmol/L Potassium 3.8 (3.5-5.1) mmol/L Chloride 109 H (98-107) mmol/L Carbon Dioxide 26 (22-30) mmol/L Anion Gap 9.4 (5-15) MEQ/L BUN 13 (7-17) mg/dL Creatinine 0.83 (0.52-1.04) mg/dL Estimated GFR > 60.0 ML/MIN Glucose 82 (74-106) mg/dL Calcium 8.0 L (8.4-10.2) mg/dL Radiology Exams: Radiology Procedures Category Date Time Status CHEST 2 VIEWS (PA AND LAT) Stat Exams 09/01/22 11:31 Completed RAD/CHEST 2 VIEWS (PA AND LAT) Indication: Congestion. History asthma. Comparison: April 18, 2022 PA/lateral chest less inflated and remains clear. Heart not enlarged again with left pacemaker. Bony thorax intact. No new/acute findings. Assessment/Plan (1) Acute bronchitis due to Moraxella catarrhalis Current Visit: Yes Status: Acute Assessment & Plan: Chief Complaint Diagnosis Pneumonia Allergies Allergy/AdvReac Type Severity Reaction Status Date / Time ketorolac [From Toradol] Allergy Severe Hives Verified 09/01/22 11:52 latex Allergy Severe STOPPED Verified 09/01/22 11:52 BREATHING prochlorperazine Allergy Severe Hives and Verified 09/01/22 11:52 [From Compazine] shakes Influenza Virus Vaccines Allergy Mild headache Verified 09/01/22 11:52 vomiting levothyroxine sodium Allergy Mild Migranes Verified 09/01/22 11:52 [From Synthroid] methylphenidate Allergy migranes Verified 09/01/22 11:52 [From Ritalin] aspirin AdvReac Mild Vomiting Verified 09/01/22 11:52 methylprednisolone AdvReac Mild Vomiting Verified 09/01/22 11:52 [From Solu-Medrol] medidate AdvReac Mild VOMTIING Uncoded 09/01/22 11:52 Vital Signs (Last 24 hours) Temp Pulse Resp BP BP Pulse Ox 09/02/22 19:52 97.8 F 107 H 20 134/93 99 09/02/22 17:36 62 20 97 09/02/22 16:00 97.8 F 61 17 121/70 97 09/02/22 11:19 97.7 F 72 18 115/60 97 09/02/22 10:17 68 18 98 09/02/22 07:17 96.9 F 67 17 117/60 100 09/02/22 04:18 60 17 121/54 09/02/22 04:00 97.1 F 60 17 121/54 99 09/02/22 00:00 96.8 F 61 17 127/64 100 09/01/22 23:30 100 Home Medications Medication Instructions Recorded Confirmed Last Taken Type Albuterol Common Canister 2 puff IH Q4H PRN 09/01/22 09/01/22 09/01/22 History [Ventolin Common Canister] Lisdexamfetamine Dimesylate 50 mg PO DAILY 09/01/22 09/01/22 08/31/22 History [Vyvanse] Current Medications Generic Name Dose Route Start Last Admin Trade Name Freq PRN Reason Stop Dose Admin Acetaminophen 1,000 mg 09/01/22 13:19 09/01/22 13:21 Acetaminophen 500 Mg Tablet PO 10/01/22 13:18 1,000 mg Q4H PRN PRN Administration HEADACHE Albuterol Sulfate 2 puff 09/01/22 12:17 Albuterol Common Canister Inhaler IH 10/01/22 12:16 Q4H/PRN PRN SHORTNESS OF BREATH Albuterol/Ipratropium 3 ml 09/01/22 13:38 09/02/22 17:33 Ipratropium/Albuterol Sulfate 3 Ml Ampul.Neb IH 10/01/22 13:37 3 ml Q4HPRN PRN Administration SHORTNESS OF BREATH/WHEEZING Guaifenesin 600 mg 09/01/22 22:00 09/02/22 09:52 Guaifenesin 600 Mg Tablet Er PO 10/01/22 21:59 600 mg BID JAH Administration Ibuprofen 600 mg 09/01/22 19:02 Ibuprofen 600 Mg Tablet PO 10/01/22 19:01 TIDP PRN MODERATE PAIN Levofloxacin 500 mg 09/03/22 10:00 Levofloxacin 500 Mg Tablet PO 10/03/22 09:59 DAILY JAH Lorazepam 1 mg 09/02/22 11:19 09/02/22 17:30 Lorazepam 1 Mg Tablet PO 10/02/22 11:18 1 mg Q6H PRN PRN Administration ANXIETY Miscellaneous Information 1 each 09/01/22 12:30 Medication Intervention 1 Each Each 10/01/22 12:29 .RN TO CHECK JAH Stafford Thyroid 60mg 0.5 each 09/01/22 13:00 09/02/22 09:52 Tablet PO 10/01/22 12:59 0.5 each DAILY JAH Administration Ondansetron HCl 4 mg 09/01/22 16:19 09/01/22 17:11 Ondansetron Hcl 4 Mg/2 Ml Vial IV 10/01/22 16:18 4 mg Q6H PRN PRN Administration NAUSEA/VOMITING Pantoprazole Sodium 40 mg 09/01/22 12:21 Protonix (Pantoprazole) 40 Mg Tablet PO 10/01/22 12:20 DAILY PRN PRN GERD Discontinued Medications Generic Name Dose Route Start Last Admin Trade Name Freq PRN Reason Stop Dose Admin Albuterol/Ipratropium Confirm 09/01/22 13:30 Ipratropium/Albuterol Sulfate 3 Ml Ampul.Neb Administered 09/01/22 13:31 Dose 3 ml IH .STK-MED ONE Guaifenesin Confirm 09/01/22 18:53 Guaifenesin 600 Mg Tablet Er Administered 09/01/22 18:54 Dose 600 mg PO .STK-MED ONE Levofloxacin/Dextrose 500 mg in 100 mls @ 100 mls/hr 09/01/22 13:00 09/02/22 09:52 Levofloxacin 500mg/100ml D5w IV 10/01/22 12:59 100 mls/hr Q24H10 JAH Administration Lorazepam 1 mg 09/01/22 19:02 09/02/22 04:18 Lorazepam 2 Mg/1 Ml 2 Mg Vial IV 10/01/22 19:01 1 mg Q6H PRN PRN Administration ANXIETY Intake & Output (Last 24 hours) 08/31/22 09/01/22 09/02/22 09/03/22 11:59 11:59 11:59 11:59 Intake Total 1330 600 Balance 1330 600 Weight 171.2 kg Laboratory Results (Last 24 hours) 09/02/22 09/02/22 04:30 04:30 WBC 5.9 RBC 4.61 Hgb 11.5 L Hct 36.4 MCV 79.0 MCH 24.9 L MCHC 31.6 L RDW 13.1 Plt Count 223 MPV 9.8 Gran % 56.3 Immature Gran % (Auto) 0.5 H Nucleat RBC Rel Count 0.0 Eos # (Auto) 0.06 Immature Gran # (Auto) 0.03 Absolute Lymphs (auto) 2.25 Absolute Monos (auto) 0.23 Absolute Nucleated RBC 0.00 Lymphocytes % 38.0 Monocytes % 3.9 Eosinophils % 1.0 Basophils % 0.3 Absolute Granulocytes 3.33 Basophils # 0.02 Sodium 140 Potassium 3.8 Chloride 109 H Carbon Dioxide 26 Anion Gap 9.4 BUN 13 Creatinine 0.83 Estimated GFR > 60.0 Glucose 82 Calcium 8.0 L Orders (Last 24 hours) Category Date Time Status BMP AM.LAB Lab 09/02/22 04:30 Completed CBC W DIFF AM.LAB Lab 09/02/22 04:30 Completed Guaifenesin 600 mg ER [Mucinex 600MG ER Tabs] Med 09/01/22 22:00 Active 600 mg PO BID Levofloxacin [Levofloxacin 500 MG Tablet] Med 09/03/22 10:00 Active 500 mg PO DAILY Lorazepam 1 mg [Ativan 1 MG] Med 09/02/22 11:19 Active 1 mg PO Q6H PRN PRN Pulse Oximetry .spot check RT 09/01/22 23:30 Active Patient Care Notes (Last 24 hours) 09/02/22 18:35 Nursing Note by TAMRA PARRA PT WENT FOR WALK IN HALLWAY WITH MOTHER. O2 SAT 99% ON ROOM AIR. PT WAS CRYING AND VERY EMOTIONAL WHILE WALKING. Initialized on 09/02/22 18:35 - END OF NOTE 09/02/22 16:29 Nursing Note by TAMRA PARRA WHEN DOING HOURLY ROUNDING ON PT, PT BECAME VERY TEARFUL AND STARTED CRYING WHEN ASKED HOW SHE WAS DOING. PT STATED, "I AM OK LONG I DO NOT GET UP AND WALK TO THE BATHROOM BECAUSE I FEEL LIKE I WILL PASS OUT." THIS NURSE STATED THAT DR. MARADIAGA WANTED HER TO GET UP AND WALK SO WE CAN CHECK HER O2 SATURATION. INFORMED PT THAT WE WILL WAIT UNTIL SHE CALMS DOWN BEFORE WE GO ON A WALK. Initialized on 09/02/22 16:29 - END OF NOTE 09/02/22 11:05 (created 09/02/22 11:30) Nursing Note by TAMRA PARRA PT'S IV INFILTRATED ONCE LEVAQUIN WAS FINISHED. PT DOES NOT COMPLAIN OF PAIN, JUST SOME ITCHINESS. PHARMACY NOTIFIED AND NO ANTIDOTE NEEDED. IV REMOVED AT THIS TIME. Initialized on 09/02/22 11:30 - END OF NOTE Code(s): J20.8 - ACUTE BRONCHITIS DUE TO OTHER SPECIFIED ORGANISMS; B96.89 - OTH BACTERIAL AGENTS THE CAUSE OF DISEASES CLASSD ELSR
[2022-09-03] MEDS: Mucinex 600MG ER Tabs PO SCH (09:02)
[2022-09-03] MEDS: NON-FORMULARY ITEM PO SCH (09:02)
[2022-09-03] MEDS: DUONEB 0.5-3 MG/3 ml Neb IH PRN (09:53)
[2022-09-03] MEDS: Ativan 1 MG PO PRN (09:57)
[2022-09-03] MEDS ORDERED: Levofloxacin 500 MG Tablet PO SCH (10:00)
[2022-09-03 12:05] VITALS: BP 142/65; PULSE 59; O2SAT 98
--- NOTE | 2022-09-03 17:52 | PCM.DS ---
Discharge Summary Date of Admission: 09/01/22 11:14 Admitting Physician: YESICA MARADIAGA Primary Care Provider: YESICA MARADIAGA Allergies Allergies ketorolac [From Toradol] Allergy (Severe, Verified 09/01/22 11:52) Hives latex Allergy (Severe, Verified 09/01/22 11:52) STOPPED BREATHING prochlorperazine [From Compazine] Allergy (Severe, Verified 09/01/22 11:52) Hives and shakes Influenza Virus Vaccines Allergy (Mild, Verified 09/01/22 11:52) headache vomiting levothyroxine sodium [From Synthroid] Allergy (Mild, Verified 09/01/22 11:52) Migranes methylphenidate [From Ritalin] Allergy (Verified 09/01/22 11:52) migranes aspirin Adverse Reaction (Mild, Verified 09/01/22 11:52) Vomiting methylprednisolone [From Solu-Medrol] Adverse Reaction (Mild, Verified 09/01/22 11:52) Vomiting medidate Adverse Reaction (Mild, Uncoded 09/01/22 11:52) [facility] Hospital Summary - Hospital Course Hospital Course: Chief Complaint Diagnosis Pneumonia Allergies Allergy/AdvReac Type Severity Reaction Status Date / Time ketorolac [From Toradol] Allergy Severe Hives Verified 09/01/22 11:52 latex Allergy Severe STOPPED Verified 09/01/22 11:52 BREATHING prochlorperazine Allergy Severe Hives and Verified 09/01/22 11:52 [From Compazine] shakes Influenza Virus Vaccines Allergy Mild headache Verified 09/01/22 11:52 vomiting levothyroxine sodium Allergy Mild Migranes Verified 09/01/22 11:52 [From Synthroid] methylphenidate Allergy migranes Verified 09/01/22 11:52 [From Ritalin] aspirin AdvReac Mild Vomiting Verified 09/01/22 11:52 methylprednisolone AdvReac Mild Vomiting Verified 09/01/22 11:52 [From Solu-Medrol] medidate AdvReac Mild VOMTIING Uncoded 09/01/22 11:52 Vital Signs (Last 24 hours) Temp Pulse Resp BP Pulse Ox 09/03/22 12:00 97.1 F 59 L 17 142/65 98 09/03/22 10:00 78 18 99 09/03/22 07:39 97.1 F 59 L 17 134/72 97 09/03/22 04:00 96.9 F 69 19 120/66 95 09/02/22 23:55 96.9 F 60 18 111/59 97 09/02/22 19:52 97.8 F 107 H 20 134/93 99 Home Medications Medication Instructions Recorded Confirmed Last Taken Type Albuterol Common Canister 2 puff IH Q4H PRN 09/01/22 09/01/22 09/01/22 History [Ventolin Common Canister] Lisdexamfetamine Dimesylate 50 mg PO DAILY 09/01/22 09/01/22 08/31/22 History [Vyvanse] Fluoxetine HCl [Prozac] 20 mg PO HS #30 cap 09/03/22 Unknown Rx Hydroxyzine HCl 25 mg [Atarax 25 mg PO QIDPRN PRN #120 tablet 09/03/22 Unknown Rx 25 mg] Levofloxacin [Levofloxacin 500 500 mg PO DAILY #5 tablet 09/03/22 Unknown Rx MG Tablet] Current Medications Discontinued Medications Generic Name Dose Route Start Last Admin Trade Name Freq PRN Reason Stop Dose Admin Acetaminophen 1,000 mg 09/01/22 13:19 09/01/22 13:21 Acetaminophen 500 Mg Tablet PO 10/01/22 13:18 1,000 mg Q4H PRN PRN Administration HEADACHE Albuterol Sulfate 2 puff 09/01/22 12:17 Albuterol Common Canister Inhaler IH 10/01/22 12:16 Q4H/PRN PRN SHORTNESS OF BREATH Albuterol/Ipratropium Confirm 09/01/22 13:30 Ipratropium/Albuterol Sulfate 3 Ml Ampul.Neb Administered 09/01/22 13:31 Dose 3 ml IH .STK-MED ONE Albuterol/Ipratropium 3 ml 09/01/22 13:38 09/03/22 09:53 Ipratropium/Albuterol Sulfate 3 Ml Ampul.Neb IH 10/01/22 13:37 3 ml Q4HPRN PRN Administration SHORTNESS OF BREATH/WHEEZING Guaifenesin 600 mg 09/01/22 22:00 09/03/22 09:02 Guaifenesin 600 Mg Tablet Er PO 10/01/22 21:59 600 mg BID JAH Administration Guaifenesin Confirm 09/01/22 18:53 Guaifenesin 600 Mg Tablet Er Administered 09/01/22 18:54 Dose 600 mg PO .STK-MED ONE Levofloxacin/Dextrose 500 mg in 100 mls @ 100 mls/hr 09/01/22 13:00 09/02/22 09:52 Levofloxacin 500mg/100ml D5w IV 10/01/22 12:59 100 mls/hr Q24H10 JAH Administration Ibuprofen 600 mg 09/01/22 19:02 Ibuprofen 600 Mg Tablet PO 10/01/22 19:01 TIDP PRN MODERATE PAIN Levofloxacin 500 mg 09/03/22 10:00 09/03/22 09:02 Levofloxacin 500 Mg Tablet PO 10/03/22 09:59 500 mg DAILY JAH Administration Lorazepam 1 mg 09/01/22 19:02 09/02/22 04:18 Lorazepam 2 Mg/1 Ml 2 Mg Vial IV 10/01/22 19:01 1 mg Q6H PRN PRN Administration ANXIETY Lorazepam 1 mg 09/02/22 11:19 09/03/22 09:57 Lorazepam 1 Mg Tablet PO 10/02/22 11:18 1 mg Q6H PRN PRN Administration ANXIETY Miscellaneous Information 1 each 09/01/22 12:30 Medication Intervention 1 Each Each 10/01/22 12:29 .RN TO CHECK JAH [place] Thyroid 60mg 0.5 each 09/01/22 13:00 09/03/22 09:02 Tablet PO 10/01/22 12:59 0.5 each DAILY JAH Administration Ondansetron HCl 4 mg 09/01/22 16:19 09/01/22 17:11 Ondansetron Hcl 4 Mg/2 Ml Vial IV 10/01/22 16:18 4 mg Q6H PRN PRN Administration NAUSEA/VOMITING Pantoprazole Sodium 40 mg 09/01/22 12:21 Protonix (Pantoprazole) 40 Mg Tablet PO 10/01/22 12:20 DAILY PRN PRN GERD Intake & Output (Last 24 hours) 09/01/22 09/02/22 09/03/22 09/04/22 11:59 11:59 11:59 11:59 Intake Total 1330 1300 240 Balance 1330 1300 240 Weight 171.2 kg Microbiology Results (Last 24 hours) 09/01/22 13:15 Blood Blood Culture Gram Stain - Pending 09/01/22 13:15 Blood Blood Culture - Preliminary NO GROWTH TO DATE 09/01/22 13:10 Blood Blood Culture Gram Stain - Pending 09/01/22 13:10 Blood Blood Culture - Preliminary NO GROWTH TO DATE Orders (Last 24 hours) Category Date Time Status Discharge Routine Discharge 09/03/22 Ordered Levofloxacin [Levofloxacin 500 MG Tablet] Med 09/03/22 10:00 Discontinued 500 mg PO DAILY Patient Care Notes (Last 24 hours) 09/03/22 09:28 Case Management Note by Sherley Yu PT PLANS TO RETURN TO [facility] ON D/C. NO ANTICIPATED NEEDS AT THIS TIME. Initialized on 09/03/22 09:28 - END OF NOTE 09/02/22 18:35 Nursing Note by TAMRA PARRA PT WENT FOR WALK IN HALLWAY WITH MOTHER. O2 SAT 99% ON ROOM AIR. PT WAS CRYING AND VERY EMOTIONAL WHILE WALKING. Initialized on 09/02/22 18:35 - END OF NOTE - Vitals & Intake/Output Vital Signs: Vital Signs Temperature 97.1 F 09/03/22 12:00 Pulse Rate 59 L 09/03/22 12:00 Respiratory Rate 17 09/03/22 12:00 Blood Pressure 142/65 09/03/22 12:00 O2 Sat by Pulse Oximetry 98 09/03/22 12:00 Intake & Output: Intake & Output 09/01/22 09/02/22 09/03/22 09/04/22 11:59 11:59 11:59 11:59 Intake Total 1330 1300 240 Balance 1330 1300 240 Weight 171.2 kg - Lab Result Diagrams: 09/02/22 04:30 09/02/22 04:30 Micro Results-Entire Visit: Microbiology 09/01/22 13:15 Blood Culture - Preliminary Blood NO GROWTH TO DATE 09/01/22 13:10 Blood Culture - Preliminary Blood NO GROWTH TO DATE - Procedures and Test Procedures and Tests throughout Hospitalization: Therapy Orders & Screens 09/01/22 11:31 Respiratory Therapy Consult ROUTINE Comment: Reason For Exam: Diagnosis: Pneumonia 09/01/22 11:49 RT Screen per Nursing Assess ONCE Comment: Protocol Order Physician Instructions: Greater than 3 points order RT Admission Screen Reason For Exam: Triggered on Admission Diagnosis: Pneumonia Diagnosis: Pneumonia Pneumonia: No Home O2: No Asthma: Yes CHF: No Home CPAP/BIPAP: Yes Home Nebs/MDI: No Total Points: 9 09/01/22 13:38 Respiratory Therapy Assessment DAILY Comment: Diagnosis: Pneumonia 09/01/22 15:25 Flutter Therapy UD Comment: Diagnosis: Pneumonia Incentive Spirometry UD Comment: Diagnosis: Pneumonia Discharge Exam General Appearance: no apparent distress, alert Neurologic Exam: alert, oriented x 3, cooperative, normal mood/affect, nml cerebellar function, sensation nml, No motor deficits Eye Exam: PERRL, EOMI, eyes nml inspection Ears, Nose, Throat Exam: normal ENT inspection, pharynx normal, moist mucous membranes Neck Exam: normal inspection, non-tender, supple, full range of motion Respiratory Exam: normal breath sounds, lungs clear, No respiratory distress Cardiovascular Exam: regular rate/rhythm, normal heart sounds Gastrointestinal/Abdomen Exam: soft, No tenderness, No mass Pelvic Exam: deferred Rectal Exam: deferred Back Exam: normal inspection, normal range of motion, No CVA tenderness, No vertebral tenderness Extremity Exam: normal inspection, normal range of motion Skin Exam: normal color, warm, dry Final Diagnosis/Problem List - Final Discharge Diagnosis/Problem (1) Acute bronchitis due to Moraxella catarrhalis Status: Resolved Code(s): J20.8 - ACUTE BRONCHITIS DUE TO OTHER SPECIFIED ORGANISMS; B96.89 - OTH BACTERIAL AGENTS THE CAUSE OF DISEASES CLASSD [id number] - Discharge Discharge Date: 09/03/22 Disposition: Home, Self-Care Condition: Stable Prescriptions: New Hydroxyzine HCl 25 mg [Atarax 25 mg] 25 mg PO QIDPRN PRN #120 tablet PRN Reason: Anxiety Levofloxacin [Levofloxacin 500 MG Tablet] 500 mg PO DAILY #5 tablet Fluoxetine HCl [Prozac] 20 mg PO HS #30 cap Continue Omeprazole 20 mg PO DAILY PRN PRN Reason: Pain Thyroid,Pork [[place] Thyroid] 30 mg PO DAILY Lisdexamfetamine Dimesylate [Vyvanse] 50 mg PO DAILY Albuterol Common Canister [Ventolin Common Canister] 2 puff IH Q4H PRN PRN Reason: Shortness Of Breath Instructions: Depression, Adult (DC), Anxiety, Adult (DC), Pneumonia, Adult (DC) Follow up with: YESICA MARADIAGA MD [Primary Care Provider] - 09/10/22 3:00 pm ALIZA WEBER DO [ACTIVE STAFF] - 09/07/22 1:30 pm Forms: Discharge Instructions, Work/School Release Form
== END 2022-09-03 13:42 | disposition home or self-care (01) ==
LOC: MED SURG 11:14
PROVIDERS: ADMIT General Practice; ATTEND General Practice
DX: J20.8 Acute bronchitis due to other specified organisms (principal); B96.89 Other specified bacterial agents as the cause of diseases classified elsewhere; Z79.899 Other long term (current) drug therapy; Z20.828 Contact with and (suspected) exposure to other viral communicable diseases
CPT/HCPCS: 0241U; 36415; 71046; 80048; 80053; 85025; 87040; 94640; 94667; 94760; 94762; 93268; J1956; J2060; J2405; A9270-GY; G0378

== ENCOUNTER 2022-09-19 11:46 | Observation (INO) | payer OTHER ==
[2022-09-19 12:21] LABS: Absolute Neutrophil Ct (ANC) 4.49 x10^3/uL (1.4-6.9); Basophil (Absolute #) 0.02 x10^3/uL (0-0.4); Eosinophil (Absolute #) 0.09 x10^3/uL (0-0.5); Hematocrit 41.8 % (35-47); Hemoglobin 13.2 g/dL (12.0-16.0); Lymphocyte (Absolute #) 3.61 x10^3/uL (1.0-4.6); Mean Cell Volume 78.9 fL (78-100); Mean Corpuscular Hemoglobin 24.9 pg (26-32); Mean Corpuscular Hgb Concent. 31.6 g/dL (32-36); Mean Platelet Volume 10.3 fL (7.5-11.0); Monocyte (Absolute #) 0.52 x10^3/uL (0.0-1.3); Monocytes % 5.9 % (0.0-12.0); Platelet Count 234 x10^3/uL (150-450); Red Cell Distribution Width 13.5 % (11.5-14.0); White Blood Count 8.8 x10^3/uL (4.0-10.5)
[2022-09-19 13:06] LABS: INFLUENZA A NEGATIVE (NEGATIVE); INFLUENZA B NEGATIVE (NEGATIVE); RESPIRATORY SYNCTIAL VIRUS NEGATIVE (Negative); SARS-CoV-2 Xpert Express NEGATIVE (NEGATIVE)
[2022-09-19] MEDS ORDERED: BABY ASPIRIN 81 MG CHEW PO ONE (13:21)
[2022-09-19] MEDS ORDERED: DUONEB 0.5-3 MG/3 ml Neb IH ONE ×2 (13:22→13:40)
--- NOTE | 2022-09-19 13:22 | ERPHSYRPT ---
- History of Present Illness Time Seen by Provider: 09/19/22 12:21 Historian: patient Exam Limitations: no limitations Patient Subjective Stated Complaint: chest pain, SOB Triage Nursing Assessment: pt to ED c/o CP and SOB x approx 2.5 weeks. pt has been hospitalized here x2 days and in [facility] x5 days for these symptoms. states she feels better while in hospital recieving IV abs and steriods but when she is DC home and taking PO meds, symptoms worsen and SOB returns. has been using new prescriptons of neb treatments at home with no relief. SOB worsens with exersion. lungs sound clear adn equal bilaterally, heart sounds clear. Physician History: 32 years old female with history of sick sinus syndrome status post dual chamber pacemaker placement, obstructive sleep apnea, anxiety presented in the ER with chief complaint of chest pain and dyspnea for the last 2 to 3 weeks. Patient has been admitted once here and once at [facility], was treated with antibiotics and steroids, started to feel better but again having similar symptoms. Patient went back to [facility] ER, was discharged, called her nutrition services associate and patient is recommended to be seen in the ER again with admission and further work-up. Patient reports feeling short of breath with resting and activity and substernal dull aching to sharp pain with no association with activity and does have some palpitations. Has minimal no nproductive cough. No fever or chills reported. Patient is very anxious and frustrated with the fact that nobody can pinpoint why is she having the symptoms. Patient has oxygen saturation around 99% with heart rate in 70s and stable blood pressure. Timing/Duration: week(s), intermittent, worse Activities at Onset: rest Quality: sharpness Location: substernal Chest Pain Radiation: no radiation Severity of Pain-Max: moderate Severity of Pain-Current: moderate Modifying Factors: Improves With: nothing Associated Symptoms: palpitations, shortness of breath Prior Chest Pain/Cardiac Workup: echocardiography, recently seen/treated Nitro Today/Relief: no nitro taken today Aspirin Treatment Today: no aspirin today Allergies/Adverse Reactions: ketorolac [From Toradol] Allergy (Severe, Verified 09/01/22 11:52) Hives latex Allergy (Severe, Verified 09/01/22 11:52) STOPPED BREATHING prochlorperazine [From Compazine] Allergy (Severe, Verified 09/01/22 11:52) Hives and shakes Influenza Virus Vaccines Allergy (Mild, Verified 09/01/22 11:52) headache vomiting levothyroxine sodium [From Synthroid] Allergy (Mild, Verified 09/01/22 11:52) Migranes methylphenidate [From Ritalin] Allergy (Verified 09/01/22 11:52) migranes aspirin Adverse Reaction (Mild, Verified 09/01/22 11:52) Vomiting medidate Adverse Reaction (Mild, Uncoded 09/01/22 11:52) VOMTIING Home Medications: Omeprazole 20 mg PO DAILY PRN 11/18/21 [History] Thyroid,Pork [[place] Thyroid] 30 mg PO DAILY 11/18/21 [History] Albuterol Common Canister [Ventolin Common Canister] 2 puff IH Q4H PRN 09/01/22 [History] Lisdexamfetamine Dimesylate [Vyvanse] 50 mg PO DAILY 09/01/22 [History] Budesonide 0.5 mg/2 ml [Pulmicort 0.5 mg/2 ml Respules] 0.5 mg IH DAILY PRN PRN 09/19/22 [History] Ipratropium/Albuterol Sulfate [Combivent Respimat Inhal [place]] 4 gm IH DAILY PRN PRN 09/19/22 [History] Hx Tetanus, Diphtheria Vaccination/Date Given: Yes Hx Influenza Vaccination/Date Given: No Hx Pneumococcal Vaccination/Date Given: No Immunizations Up to Date: Yes Travel Risk - International Travel Have you traveled outside of the country in past 3 weeks: No - Coronavirus Screening Are you exhibiting any of the following symptoms?: Yes Symptoms: Cough: New Onset, Shortness of Breath, Headaches/Body Aches/Fatigue Close contact with a COVID-19 positive Pt in past 14-21 Days: No - Vaccine Status Have you recieved a Covid-19 vaccination: No - Review of Systems Constitutional: No Symptoms Eyes: No Symptoms Ears, Nose, & Throat: No Symptoms Respiratory: Cough, Dyspnea Cardiac: Chest Pain Abdominal/Gastrointestinal: No Symptoms Genitourinary Symptoms: No Symptoms Musculoskeletal: No Symptoms Skin: No Symptoms Neurological: No Symptoms Psychological: Anxiety Endocrine: No Symptoms Hematologic/Lymphatic: No Symptoms Immunological/Allergic: No Symptoms - Past Medical History Pertinent Past Medical History: Yes Neurological History: Migraines ENT History: No Pertinent History Cardiac History: Arrhythmia, Other Respiratory History: Asthma Endocrine Medical History: Hypothyroidism Musculoskeletal History: No Pertinent History GI Medical History: GERD History: No Pertinent History Psycho-Social History: Anxiety, Attention Deficit Disorder, Depression Female Reproductive Disorders: No Pertinent History Other Medical History: Bradycardia, hypotension (usual 90s/60s), post depression 2019, sleep apnea, PCOS, endometreosis - Past Surgical History Past Surgical History: Yes Neuro Surgical History: No Pertinent History Cardiac: Pacemaker, Other Respiratory: No Pertinent History Gastrointestinal: Cholecystectomy Genitourinary: No Pertinent History Musculoskeletal: No Pertinent History Female Surgical History: Hysterectomy, Section, Other Other Surgical History: c section x3, left oopherectomy and tubal removal,. Loop crowell device (removed) - Social History Smoking Status: Former smoker How long have you smoked: 8 years Exposure to second hand smoke: No Drug Use: none Patient Lives Alone: No Significant Family History: no pertinent family hx, cancer (colon/breast), diabetes, other (Gall bladder disease) - Female History Hx Now: No (hysterectomy January 2021) - Nursing Vital Signs Nursing Vital Signs: Initial Vital Signs Temperature 97.6 F 09/19/22 11:52 Pulse Rate 77 09/19/22 11:52 Respiratory Rate 24 09/19/22 11:52 Blood Pressure 148/108 09/19/22 11:52 O2 Sat by Pulse Oximetry 99 09/19/22 11:52 Pain Scale Pain Intensity 5 - Physical Exam General Appearance: no apparent distress, alert, anxiety Eye Exam: PERRL/EOMI, eyes nml inspection Ears, Nose, Throat Exam: normal ENT inspection, TMs normal, pharynx normal, moist mucous membranes Neck Exam: normal inspection, non-tender, supple, full range of motion Respiratory Exam: normal breath sounds, lungs clear Cardiovascular Exam: regular rate/rhythm, normal heart sounds Gastrointestinal/Abdomen Exam: soft, normal bowel sounds, No tenderness Back Exam: normal inspection, normal range of motion Extremity Exam: normal inspection, normal range of motion Neurologic Exam: alert, oriented x 3, cooperative, dry box operator II-XII nml as tested, No normal mood/affect Skin Exam: normal color SpO2 Interpretation: normal SpO2: 99 O2 Delivery: Room Air - Course EKG Interpreted by Me: RATE (62 atrial paced), NORMAL AXIS, NORMAL INTERVALS, NORMAL QRS Ordered Tests: Active Orders 24 hr Category Date Time Status Hydro Station Supervisor STAT Care 09/19/22 12:05 Active EKG-ER Only STAT Care 09/19/22 12:04 Active IV Insertion STAT Care 09/19/22 12:04 Active Pulse Oximetry (ED) STAT Care 09/19/22 12:04 Active CHEST 1 VIEW (PORTABLE) Stat Exams 09/19/22 12:28 Taken CHEST WITH CONTRAST [CT] Stat Exams 09/19/22 14:33 Taken CBC W DIFF Stat Lab 09/19/22 12:00 Completed CMP Stat Lab 09/19/22 12:00 Completed D-DIMER QUANTITATIVE Stat Lab 09/19/22 12:00 Completed NT PRO BNP Stat Lab 09/19/22 12:00 Completed T4 (Thyroxine) Stat Lab 09/19/22 12:00 Completed TROPONIN Q4H Lab 09/19/22 12:00 Completed TROPONIN Q4H Lab 09/19/22 16:15 Ordered TROPONIN Q4H Lab 09/19/22 20:15 Ordered TSH, 3RD Generation Stat Lab 09/19/22 12:00 Completed UA W/RFX CULTURE Stat Lab 09/19/22 Ordered Urine Triage Profile Stat Lab 09/19/22 12:05 Ordered Medication Summary Generic Name Dose Route Start Last Admin Trade Name Freq PRN Reason Stop Dose Admin Ibuprofen 600 mg 09/19/22 15:26 Ibuprofen 600 Mg Tablet PO 09/19/22 15:27 STAT ONE Discontinued Medications Generic Name Dose Route Start Last Admin Trade Name Freq PRN Reason Stop Dose Admin Albuterol/Ipratropium 3 ml 09/19/22 13:22 09/19/22 13:41 Ipratropium/Albuterol Sulfate 3 Ml Ampul.Neb IH 09/19/22 13:23 3 ml STAT ONE Administration Albuterol/Ipratropium Confirm 09/19/22 13:40 Ipratropium/Albuterol Sulfate 3 Ml Ampul.Neb Administered 09/19/22 13:41 Dose 3 ml IH .STK-MED ONE Aspirin 324 mg 09/19/22 13:21 09/19/22 13:36 Aspirin 81 Mg Tab.Chew PO 09/19/22 13:22 Not Given STAT ONE Aspirin Confirm 09/19/22 13:34 Aspirin 81 Mg Tab.Chew Administered 09/19/22 13:35 Dose 324 mg .ROUTE .STK-MED ONE Morphine Sulfate 4 mg 09/19/22 13:40 09/19/22 13:48 Morphine Sulfate 4 Mg/Ml Injection IV 09/19/22 13:41 4 mg STAT ONE Administration Morphine Sulfate Confirm 09/19/22 13:46 Morphine Sulfate 4 Mg/Ml Injection Administered 09/19/22 13:47 Dose 4 mg .ROUTE .STK-MED ONE Ondansetron HCl 4 mg 09/19/22 13:40 09/19/22 13:47 Ondansetron Hcl 4 Mg/2 Ml Vial IV 09/19/22 13:41 4 mg STAT ONE Administration Ondansetron HCl Confirm 09/19/22 13:45 Ondansetron Hcl 4 Mg/2 Ml Vial Administered 09/19/22 13:46 Dose 4 mg .ROUTE .STK-MED ONE Lab/Rad Data: Laboratory Result Diagrams 09/19/22 12:00 09/19/22 12:00 Laboratory Results 09/19/22 09/19/22 09/19/22 Range/Units 12:00 12:00 12:00 WBC (4.0-10.5) x10^3/uL RBC (4.1-5.4) x10^6/uL Hgb (12.0-16.0) g/dL Hct (35-47) % MCV (78-100) fL MCH (26-32) pg MCHC (32-36) g/dL RDW (11.5-14.0) % Plt Count (150-450) x10^3/uL MPV (7.5-11.0) fL Gran % (36.0-66.0) % Immature Gran % (Auto) (0.00-0.4) % Nucleat RBC Rel Count (0.00-0.1) % Eos # (Auto) (0-0.5) x10^3/uL Immature Gran # (Auto) (0.00-0.03) x10^3u/L Absolute Lymphs (auto) (1.0-4.6) x10^3/uL Absolute Monos (auto) (0.0-1.3) x10^3/uL Absolute Nucleated RBC (0.00-0.01) x10^3u/L Lymphocytes % (24.0-44.0) % Monocytes % (0.0-12.0) % Eosinophils % (0.00-5.0) % Basophils % (0.0-0.4) % Absolute Granulocytes (1.4-6.9) x10^3/uL Basophils # (0-0.4) x10^3/uL D-Dimer (0.0-0.50) mg/L Sodium (137-145) mmol/L Potassium (3.5-5.1) mmol/L Chloride (98-107) mmol/L Carbon Dioxide (22-30) mmol/L Anion Gap (5-15) MEQ/L BUN (7-17) mg/dL Creatinine (0.52-1.04) mg/dL Estimated GFR ML/MIN Glucose (74-106) mg/dL Calcium (8.4-10.2) mg/dL Total Bilirubin (0.2-1.3) mg/dL AST (14-36) U/L ALT (0-35) U/L Alkaline Phosphatase (38-126) U/L Troponin I < 0.012 (0.000-0.034) ng/mL NT-Pro-B Natriuret Pep (0-450) pg/mL Serum Total Protein (6.3-8.2) g/dL Albumin (3.5-5.0) g/dL Thyroxine (T4) (5.53-10.96) ug/dL TSH 3rd Generation (0.47-4.68) mIU/L Influenza Type A Ag NEGATIVE (NEGATIVE) Influenza Type B Ag NEGATIVE (NEGATIVE) RSV (PCR) NEGATIVE (Negative) SARS-CoV-2 (PCR) NEGATIVE (NEGATIVE) Group A Strep Antibody NOT DETECTED (NEGATIVE) 09/19/22 09/19/22 09/19/22 Range/Units 12:00 12:00 12:00 WBC 8.8 (4.0-10.5) x10^3/uL RBC 5.30 (4.1-5.4) x10^6/uL Hgb 13.2 (12.0-16.0) g/dL Hct 41.8 (35-47) % MCV 78.9 (78-100) fL MCH 24.9 L (26-32) pg MCHC 31.6 L (32-36) g/dL RDW 13.5 (11.5-14.0) % Plt Count 234 (150-450) x10^3/uL MPV 10.3 (7.5-11.0) fL Gran % 51.0 (36.0-66.0) % Immature Gran % (Auto) 0.9 H (0.00-0.4) % Nucleat RBC Rel Count 0.0 (0.00-0.1) % Eos # (Auto) 0.09 (0-0.5) x10^3/uL Immature Gran # (Auto) 0.08 H (0.00-0.03) x10^3u/L Absolute Lymphs (auto) 3.61 (1.0-4.6) x10^3/uL Absolute Monos (auto) 0.52 (0.0-1.3) x10^3/uL Absolute Nucleated RBC 0.00 (0.00-0.01) x10^3u/L Lymphocytes % 41.0 (24.0-44.0) % Monocytes % 5.9 (0.0-12.0) % Eosinophils % 1.0 (0.00-5.0) % Basophils % 0.2 (0.0-0.4) % Absolute Granulocytes 4.49 (1.4-6.9) x10^3/uL Basophils # 0.02 (0-0.4) x10^3/uL D-Dimer 0.54 H (0.0-0.50) mg/L Sodium 136 L (137-145) mmol/L Potassium 3.9 (3.5-5.1) mmol/L Chloride 106 (98-107) mmol/L Carbon Dioxide 25 (22-30) mmol/L Anion Gap 8.6 (5-15) MEQ/L BUN 20 H (7-17) mg/dL Creatinine 0.85 (0.52-1.04) mg/dL Estimated GFR > 60.0 ML/MIN Glucose 80 (74-106) mg/dL Calcium 8.4 (8.4-10.2) mg/dL Total Bilirubin 0.80 (0.2-1.3) mg/dL AST 25 (14-36) U/L ALT 50 H (0-35) U/L Alkaline Phosphatase 60 (38-126) U/L Troponin I (0.000-0.034) ng/mL NT-Pro-B Natriuret Pep 29.0 (0-450) pg/mL Serum Total Protein 6.6 (6.3-8.2) g/dL Albumin 3.6 (3.5-5.0) g/dL Thyroxine (T4) 13.1 H (5.53-10.96) ug/dL TSH 3rd Generation 3.890 (0.47-4.68) mIU/L Influenza Type A Ag (NEGATIVE) Influenza Type B Ag (NEGATIVE) RSV (PCR) (Negative) SARS-CoV-2 (PCR) (NEGATIVE) Group A Strep Antibody (NEGATIVE) - Progress Progress: improved Air Movement: good Progress Note: 09/19/22 15:27 32 years old is evaluated for chest pain and dyspnea with progressive worsening the last few weeks. EKG showed atrial paced rhythm and chest x-ray reviewed by me no acute findings, official report is pending. Patient has normal initial troponin, mildly elevated D-dimer and CTA negative for pulmonary embolism or any other acute cardiopulmonary pathology. Patient is given morphine with symptomatic relief and given a breathing treatment. Patient still having some discomfort. I have discussed with her primary care who is very well familiar with patient's symptoms and has recently admitted her. He recommended observation admission and will evaluate patient later in the hospital. I have discussed with Dr. Conteh on-call for hospitalist/primary care, reviewed history, work-up and agreed with admission. Blood Culture(s) Obtained: No Antibiotics given: No Discussed with .: Corina Alonzo Will see patient in: hospital (observation) Counseled pt/family regarding: lab results, diagnosis, rad results - Departure Departure Disposition: Observation Clinical Impression: Dyspnea, Chest pain Condition: Stable Critical Care Time: No Referrals: YESICA MARADIAGA MD [Primary Care Provider] - Follow up/PCP as directed
[2022-09-19 13:26] LABS: ALBUMIN 3.6 g/dL (3.5-5.0); ALKALINE PHOSPHATASE 60 U/L (38-126); ANION GAP 8.6 MEQ/L (5-15); BLOOD UREA NITROGEN 20 mg/dL (7-17); CHLORIDE 106 mmol/L (98-107); Calcium 8.4 mg/dL (8.4-10.2); Carbon Dioxide 25 mmol/L (22-30); Creatinine 1 0.85 mg/dL (0.52-1.04); EST GLOMERULAR FILTRATION RATE > 60.0 ML/MIN; Glucose 80 mg/dL (74-106); Potassium 3.9 mmol/L (3.5-5.1); SGOT/AST 25 U/L (14-36); SGPT/ALT 50 U/L (0-35); SODIUM 136 mmol/L (137-145); T4 (Thyroxine) 13.1 ug/dL (5.53-10.96); Total Protein 6.6 g/dL (6.3-8.2)
[2022-09-19] MEDS ORDERED: BABY ASPIRIN 81 MG CHEW ONE (13:34)
[2022-09-19] MEDS ORDERED: Zofran 4 MG/2 ML VIAL IV ONE (13:40)
[2022-09-19] MEDS ORDERED: MORPHINE SULFATE 4 MG INJ IV ONE (13:40)
[2022-09-19] MEDS ORDERED: Zofran 4 MG/2 ML VIAL ONE (13:45)
[2022-09-19] MEDS ORDERED: MORPHINE SULFATE 4 MG INJ ONE (13:46)
[2022-09-19] MEDS ORDERED: MOTRIN 600 MG PO ONE (15:26)
[2022-09-19] MEDS ORDERED: MOTRIN 600 MG ONE (15:29)
[2022-09-19] MEDS ORDERED: TYLENOL 325 MG PO PRN (15:52)
[2022-09-19] MEDS ORDERED: Zofran 4 MG/2 ML VIAL IV PRN (15:52)
[2022-09-19] MEDS: MORPHINE SULFATE 2 MG INJ IV PRN ×2 (18:30→22:55)
--- NOTE | 2022-09-19 19:43 | XRAY ---
Indication: Chest pain and short of breath. Elevated d-dimer. Multiple contiguous axial images obtained through the chest using 80 cc Isovue 370 contrast and PE protocol. Comparison: July 06, 2021 Adequate opacification of the pulmonary arteries to include the lobar and segmental branches. No pulmonary embolus. Heart not enlarged with new left dual-lead pacemaker. Aorta remains normal in course and caliber. No pathologic mediastinal/hilar lymphadenopathy. Lungs inflated with stable small right middle and tiny right lower lobe noncalcified nodules favored to be benign. No infiltrate, consolidation, or effusion. Bony thorax intact. Limited upper abdomen demonstrates mild fatty liver and cholecystectomy. Impression: 1. Continued negative pulmonary embolus. New left pacemaker. No acute cardiopulmonary abnormalities. 2. Stable benign right middle and right lower lobe noncalcified nodules. 3. Incidental fatty liver. Comment: Preliminary interpretation made by [facility]. No critical discrepancy.
--- NOTE | 2022-09-19 19:45 | XRAY ---
Indication: Short of breath. Comparison: September 01, 2022 Portable chest again demonstrates normal heart and lungs with left pacemaker. Bony thorax intact again with minimal scoliosis. No new/acute abnormalities.
[2022-09-19] MEDS: DUONEB 0.5-3 MG/3 ml Neb IH SCH (20:15)
[2022-09-19 22:30] LABS: Epithelial Cells RARE /HPF (FEW); Mucus SLIGHT /HPF (NEGATIVE); WBC 0-2 /HPF (0-5)
[2022-09-19 22:32] LABS: Appearance CLEAR (CLEAR); Bilirubin NEGATIVE (NEGATIVE); Dipstick done @ ? MAIN LAB; Glucose NEGATIVE (NEGATIVE); Ketones NEGATIVE (NEGATIVE); Nitrite NEGATIVE (NEGATIVE); Ph 5.5 (5-6); Protein,Urine Dip NEGATIVE (Negative); RBC NEGATIVE Ery/ul (0-5); Specific Gravity 1.015 (1.005-1.025); Urine Cultured Indicated? NO; Urobilinogen 0.2 mg/dL (0-1)
[2022-09-19 22:44] LABS: Amphetamine,Urine NEGATIVE (NEGATIVE); Barbiturate,Urine NEGATIVE (NEGATIVE); Benzodiazepine,Urine NEGATIVE (NEGATIVE); Cocaine,Urine NEGATIVE (NEGATIVE); Methadone,Urine NEGATIVE (NEGATIVE); Opiate,Urine POSITIVE (NEGATIVE); PCP,Urine NEGATIVE (NEGATIVE); THC,Urine POSITIVE (NEGATIVE)
[2022-09-20] MEDS: DUONEB 0.5-3 MG/3 ml Neb IH SCH ×4 (02:04→20:07)
[2022-09-20] MEDS: MORPHINE SULFATE 2 MG INJ IV PRN ×3 (03:43→12:21)
[2022-09-20 05:54] LABS: Absolute Neutrophil Ct (ANC) 2.78 x10^3/uL (1.4-6.9); Basophil (Absolute #) 0.01 x10^3/uL (0-0.4); Eosinophil % 1.4 % (0.00-5.0); Eosinophil (Absolute #) 0.08 x10^3/uL (0-0.5); Hematocrit 37.2 % (35-47); Hemoglobin 11.7 g/dL (12.0-16.0); Lymphocyte (Absolute #) 2.36 x10^3/uL (1.0-4.6); Lymphocytes % 41.3 % (24.0-44.0); Mean Cell Volume 79.8 fL (78-100); Mean Corpuscular Hemoglobin 25.1 pg (26-32); Mean Corpuscular Hgb Concent. 31.5 g/dL (32-36); Mean Platelet Volume 9.6 fL (7.5-11.0); Monocyte (Absolute #) 0.43 x10^3/uL (0.0-1.3); Monocytes % 7.5 % (0.0-12.0); Neutrophil % 48.7 % (36.0-66.0); Platelet Count 197 x10^3/uL (150-450); Red Blood Count 4.66 x10^6/uL (4.1-5.4); Red Cell Distribution Width 13.5 % (11.5-14.0); White Blood Count 5.7 x10^3/uL (4.0-10.5)
[2022-09-20 06:19] LABS: ANION GAP 9.5 MEQ/L (5-15); BLOOD UREA NITROGEN 15 mg/dL (7-17); CHLORIDE 101 mmol/L (98-107); Calcium 7.8 mg/dL (8.4-10.2); Carbon Dioxide 26 mmol/L (22-30); Creatinine 1 0.73 mg/dL (0.52-1.04); EST GLOMERULAR FILTRATION RATE > 60.0 ML/MIN; Glucose 119 mg/dL (74-106); Potassium 3.4 mmol/L (3.5-5.1); SODIUM 134 mmol/L (137-145)
[2022-09-20] MEDS: ENOXAPARIN SODIUM SQ SCH (08:07)
[2022-09-20] MEDS ORDERED: PROTONIX 40 MG IV IV SCH (10:00)
[2022-09-20] MEDS ORDERED: ATARAX 25 MG PO PRN (13:49)
[2022-09-20] MEDS ORDERED: NON-FORMULARY ITEM (Omeprazole [Omeprazole] 20 MG Capsule.Dr) PO PRN (13:49)
[2022-09-20] MEDS ORDERED: PULMICORT 0.5 MG/2 ML RESPULES IH PRN (13:50)
[2022-09-20] MEDS ORDERED: MEDICATION INTERVENTION MC SCH (14:00)
[2022-09-20] MEDS: Prozac 20 MG PO SCH (17:38)
[2022-09-20] MEDS ORDERED: Sterile H2O 10 ml IJ ONE (18:15)
[2022-09-20] MEDS: solu-MEDROL IV SCH (18:23)
[2022-09-20] MEDS: Cyclobenzaprine 10 MG PO SCH (18:23)
--- NOTE | 2022-09-20 18:42 | PCM.HP ---
History of Present Illness - Chief Complaint Chief Complaint: CP, Dyspnea History of Present Illness: is a 32 year old female. Medications & Allergies Home Medications: Home Medication List Omeprazole 20 mg PO DAILY PRN 11/18/21 [History Confirmed 09/19/22] Thyroid,Pork [[place] Thyroid] 30 mg PO DAILY 11/18/21 [History Confirmed 09/19/22] Albuterol Common Canister [Ventolin Common Canister] 2 puff IH Q4H PRN 09/01/22 [History Confirmed 09/19/22] Lisdexamfetamine Dimesylate [Vyvanse] 50 mg PO DAILY 09/01/22 [History Confirmed 09/19/22] Hydroxyzine HCl 25 mg [Atarax 25 mg] 25 mg PO QIDPRN PRN #120 tablet 09/03/22 [Rx Confirmed 09/19/22] Budesonide 0.5 mg/2 ml [Pulmicort 0.5 mg/2 ml Respules] 0.5 mg IH DAILY PRN PRN 09/19/22 [History Confirmed 09/19/22] Fluoxetine HCl [Prozac] 20 mg PO DAILY 09/19/22 [History Confirmed 09/19/22] Ipratropium/Albuterol Sulfate [Combivent Respimat Inhal [place]] 4 gm IH DAILY PRN PRN 09/19/22 [History Confirmed 09/19/22] Allergies/Adverse Reactions: Allergies Allergy/AdvReac Type Severity Reaction Status Date / Time ketorolac [From Toradol] Allergy Severe Hives Verified 09/01/22 11:52 latex Allergy Severe STOPPED Verified 09/01/22 11:52 BREATHING prochlorperazine Allergy Severe Hives and Verified 09/01/22 11:52 [From Compazine] shakes Influenza Virus Vaccines Allergy Mild headache Verified 09/01/22 11:52 vomiting levothyroxine sodium Allergy Mild Migranes Verified 09/01/22 11:52 [From Synthroid] methylphenidate Allergy migranes Verified 09/01/22 11:52 [From Ritalin] aspirin AdvReac Mild Vomiting Verified 09/01/22 11:52 medidate AdvReac Mild VOMTIING Uncoded 09/01/22 11:52 - Past Medical History Past Medical History: Yes Neurological History: Migraines ENT History: No Pertinent History Cardiac History: Arrhythmia, Other Respiratory History: Asthma Endocrine Medical History: Hypothyroidism Musculoskelatal History: No Pertinent History GI Medical History: GERD History: No Pertinent History Pyscho-Social History: Anxiety, Attention Deficit Disorder, Depression Reproductive Disorders: No Pertinent History Comment: post depression 2018, sleep apnea, PCOS, endometreosis, triple S with bradycardic syncope - Female History Are you now?: (hysterectomy January 2021) - Past Surgical History Past Surgical History: Yes Neuro Surgical History: No Pertinent History Cardiac History: Pacemaker, Other Respiratory Surgery: No Pertinent History GI Surgical History: Cholecystectomy Genitourinary Surgical Hx: No Pertinent History Musculskeletal Surgical Hx: No Pertinent History Female Surgical History: Hysterectomy, Section, Other Other Surgical History: c section x3, left oopherectomy and tubal removal,. Loop crowell device (removed) - Social History Smoking Status: Former smoker How long have you smoked: 8 years Exposure to second hand smoke: No Alcohol: None Drug Use: none Significant Family History: no pertinent family hx, cancer (colon/breast), diabetes, other (Gall bladder disease) - Physical Exam Vital Signs: Vital Signs - 24 hr Temp Pulse Resp BP Pulse Ox 09/20/22 16:00 97.5 F 77 18 133/74 98 09/20/22 13:19 66 20 99 09/20/22 11:52 97.3 F 61 16 121/71 97 09/20/22 08:00 96.9 F 67 18 110/71 97 09/20/22 07:19 60 20 97 09/20/22 04:00 97.8 F 83 18 125/71 99 09/20/22 02:04 74 18 99 09/19/22 23:37 97.7 F 72 18 123/70 98 09/19/22 20:16 66 18 98 09/19/22 20:00 97.9 F 68 18 125/73 98 Results - Labs Lab/Micro Results: Lab Results-Last 24 Hours 09/19/22 09/19/22 09/19/22 Range/Units 21:14 22:01 22:01 WBC (4.0-10.5) x10^3/uL RBC (4.1-5.4) x10^6/uL Hgb (12.0-16.0) g/dL Hct (35-47) % MCV (78-100) fL MCH (26-32) pg MCHC (32-36) g/dL RDW (11.5-14.0) % Plt Count (150-450) x10^3/uL MPV (7.5-11.0) fL Gran % (36.0-66.0) % Immature Gran % (Auto) (0.00-0.4) % Nucleat RBC Rel Count (0.00-0.1) % Eos # (Auto) (0-0.5) x10^3/uL Immature Gran # (Auto) (0.00-0.03) x10^3u/L Absolute Lymphs (auto) (1.0-4.6) x10^3/uL Absolute Monos (auto) (0.0-1.3) x10^3/uL Absolute Nucleated RBC (0.00-0.01) x10^3u/L Lymphocytes % (24.0-44.0) % Monocytes % (0.0-12.0) % Eosinophils % (0.00-5.0) % Basophils % (0.0-0.4) % Absolute Granulocytes (1.4-6.9) x10^3/uL Basophils # (0-0.4) x10^3/uL ESR (0-20) mm/hr Sodium (137-145) mmol/L Potassium (3.5-5.1) mmol/L Chloride (98-107) mmol/L Carbon Dioxide (22-30) mmol/L Anion Gap (5-15) MEQ/L BUN (7-17) mg/dL Creatinine (0.52-1.04) mg/dL Estimated GFR ML/MIN Glucose (74-106) mg/dL Calcium (8.4-10.2) mg/dL Troponin I < 0.012 (0.000-0.034) ng/mL Urinalys Dipstick Clnc MAIN LAB Urine Color YELLOW (YELLOW) Urine Appearance CLEAR (CLEAR) Urine pH 5.5 (5-6) Ur Specific [place] 1.015 (1.005-1.025) POC Urine Protein Conf NEGATIVE (Negative) Urine Ketones NEGATIVE (NEGATIVE) Urine Nitrite NEGATIVE (NEGATIVE) Urine Bilirubin NEGATIVE (NEGATIVE) Urine Urobilinogen 0.2 (0-1) mg/dL Urine Leukocytes NEGATIVE (NEGATIVE) Urine WBC (Auto) 0-2 (0-5) /HPF Urine RBC (Auto) NONE (0-2) /HPF U Epithel Cells (Auto) RARE (FEW) /HPF Urine Bacteria (Auto) NONE (NEGATIVE) /HPF Urine RBC NEGATIVE (0-5) Reymundo/ul Urine Mucus (Auto) SLIGHT A (NEGATIVE) /HPF Ur Culture Indicated? NO Urine Glucose NEGATIVE (NEGATIVE) mg/dL Urine Opiates Level POSITIVE (NEGATIVE) Ur Methadone NEGATIVE (NEGATIVE) Urine Barbiturates NEGATIVE (NEGATIVE) Ur Phencyclidine (PCP) NEGATIVE (NEGATIVE) Urine Amphetamine NEGATIVE (NEGATIVE) U Benzodiazepine Level NEGATIVE (NEGATIVE) Urine Cocaine NEGATIVE (NEGATIVE) Urine Marijuana (THC) POSITIVE (NEGATIVE) 09/20/22 09/20/22 09/20/22 Range/Units 05:19 05:19 15:56 WBC 5.7 (4.0-10.5) x10^3/uL RBC 4.66 (4.1-5.4) x10^6/uL Hgb 11.7 L (12.0-16.0) g/dL Hct 37.2 (35-47) % MCV 79.8 (78-100) fL MCH 25.1 L (26-32) pg MCHC 31.5 L (32-36) g/dL RDW 13.5 (11.5-14.0) % Plt Count 197 (150-450) x10^3/uL MPV 9.6 (7.5-11.0) fL Gran % 48.7 (36.0-66.0) % Immature Gran % (Auto) 0.9 H (0.00-0.4) % Nucleat RBC Rel Count 0.0 (0.00-0.1) % Eos # (Auto) 0.08 (0-0.5) x10^3/uL Immature Gran # (Auto) 0.05 H (0.00-0.03) x10^3u/L Absolute Lymphs (auto) 2.36 (1.0-4.6) x10^3/uL Absolute Monos (auto) 0.43 (0.0-1.3) x10^3/uL Absolute Nucleated RBC 0.00 (0.00-0.01) x10^3u/L Lymphocytes % 41.3 (24.0-44.0) % Monocytes % 7.5 (0.0-12.0) % Eosinophils % 1.4 (0.00-5.0) % Basophils % 0.2 (0.0-0.4) % Absolute Granulocytes 2.78 (1.4-6.9) x10^3/uL Basophils # 0.01 (0-0.4) x10^3/uL ESR 7 (0-20) mm/hr Sodium 134 L (137-145) mmol/L Potassium 3.4 L (3.5-5.1) mmol/L Chloride 101 (98-107) mmol/L Carbon Dioxide 26 (22-30) mmol/L Anion Gap 9.5 (5-15) MEQ/L BUN 15 (7-17) mg/dL Creatinine 0.73 (0.52-1.04) mg/dL Estimated GFR > 60.0 ML/MIN Glucose 119 H (74-106) mg/dL Calcium 7.8 L (8.4-10.2) mg/dL Troponin I (0.000-0.034) ng/mL Urinalys Dipstick Clnc Urine Color (YELLOW) Urine Appearance (CLEAR) Urine pH (5-6) Ur Specific [place] (1.005-1.025) POC Urine Protein Conf (Negative) Urine Ketones (NEGATIVE) Urine Nitrite (NEGATIVE) Urine Bilirubin (NEGATIVE) Urine Urobilinogen (0-1) mg/dL Urine Leukocytes (NEGATIVE) Urine WBC (Auto) (0-5) /HPF Urine RBC (Auto) (0-2) /HPF U Epithel Cells (Auto) (FEW) /HPF Urine Bacteria (Auto) (NEGATIVE) /HPF Urine RBC (0-5) Reymundo/ul Urine Mucus (Auto) (NEGATIVE) /HPF Ur Culture Indicated? Urine Glucose (NEGATIVE) mg/dL Urine Opiates Level (NEGATIVE) Ur Methadone (NEGATIVE) Urine Barbiturates (NEGATIVE) Ur Phencyclidine (PCP) (NEGATIVE) Urine Amphetamine (NEGATIVE) U Benzodiazepine Level (NEGATIVE) Urine Cocaine (NEGATIVE) Urine Marijuana (THC) (NEGATIVE) - Radiology Impressions Radiology Exams & Impressions: Radiology Procedures Category Date Time Status CHEST 1 VIEW (PORTABLE) Stat Exams 09/19/22 12:28 Completed CHEST WITH CONTRAST [CT] Stat Exams 09/19/22 14:33 Completed THYROID [US] Routine Exams 09/20/22 Ordered
[2022-09-20] MEDS ORDERED: PULMICORT 0.5 MG/2 ML RESPULES IH SCH (19:00)
[2022-09-21] MEDS: Cyclobenzaprine 10 MG PO SCH ×3 (00:28→11:16)
[2022-09-21] MEDS: DUONEB 0.5-3 MG/3 ml Neb IH SCH ×3 (02:14→13:12)
[2022-09-21] MEDS ORDERED: Sterile H2O 10 ml IJ ONE (02:45)
[2022-09-21] MEDS: solu-MEDROL IV SCH (02:54)
[2022-09-21] MEDS: Prozac 20 MG PO SCH (09:57)
[2022-09-21] MEDS: ENOXAPARIN SODIUM SQ SCH (09:58)
[2022-09-21] MEDS ORDERED: NON-FORMULARY ITEM PO SCH (10:00)
[2022-09-21] MEDS ORDERED: THYROID PORK 15 MG PO SCH (10:00)
[2022-09-21] MEDS ORDERED: LISDEXAMFETAMINE DIMESYLATE 50 MG PO SCH (10:00)
[2022-09-21] MEDS ORDERED: solu-MEDROL 40 MG, Sterile H2O 10 ml 1 ML IV SCH ×2 (10:00)
[2022-09-21] MEDS ORDERED: Protonix 40MG Tablet PO SCH (10:00)
--- NOTE | 2022-09-21 10:10 | XRAY ---
Indication: Hypothyroidism. Two-dimensional thyroid sonogram performed. Comparison: None No thyromegaly. Right lobe measures 3.8 x 1.7 x 1.3 cm and the left measures 3.4 x 1.4 x 1.9 cm. Isthmus measures 3.3 mm. No focal solid/cystic mass or abnormal color perfusion. Impression: Negative thyroid sonogram.
--- NOTE | 2022-09-21 13:03 | PCM.NOTE ---
Date and Time: 09/21/22 1300 Subjective Assessment: doing little better - Review of Systems Constitutional: No Fever, No Chills Eyes: No Symptoms Ears, Nose, & Throat: No Symptoms Respiratory: Short Of Breath, No Cough Cardiac: No Chest Pain, No Edema, No Syncope Abdominal/Gastrointestinal: No Abdominal Pain, No Nausea, No Vomiting, No Diarrhea Genitourinary Symptoms: No Dysuria Musculoskeletal: No Back Pain, No Neck Pain Skin: No Rash Neurological: No Dizziness, No Focal Weakness, No Sensory Changes Psychological: No Symptoms Endocrine: No Symptoms Hematologic/Lymphatic: No Symptoms Immunological/Allergic: No Symptoms Objective Exam General Appearance: no apparent distress, alert Neurologic Exam: alert, oriented x 3, cooperative, normal mood/affect, nml cerebellar function, sensation nml, No motor deficits Skin Exam: normal color, warm, dry Eye Exam: PERRL, EOMI, eyes nml inspection Ears, Nose, Throat Exam: normal ENT inspection, pharynx normal, moist mucous membranes Neck Exam: normal inspection, non-tender, supple, full range of motion Respiratory Exam: normal breath sounds, lungs clear, No respiratory distress Cardiovascular Exam: regular rate/rhythm, normal heart sounds Gastrointestinal/Abdomen Exam: soft, No tenderness, No mass Extremity Exam: normal inspection, normal range of motion Back Exam: normal inspection, normal range of motion, No CVA tenderness, No vertebral tenderness Pelvic Exam: deferred Rectal Exam: deferred OBJECTIVE DATA Vital Signs: Vital Signs - 24 hr Temp Pulse Resp BP Pulse Ox 09/21/22 11:42 97.3 F 90 17 128/72 96 09/21/22 07:38 96 H 16 98 09/21/22 07:18 97.1 F 72 17 129/60 96 09/21/22 03:54 97.1 F 67 18 115/56 98 09/21/22 02:15 82 16 97 09/20/22 23:19 98.0 F 83 16 116/67 96 09/20/22 20:07 65 18 98 09/20/22 20:00 97.5 F 73 18 116/54 98 09/20/22 16:00 97.5 F 77 18 133/74 98 09/20/22 13:19 66 20 99 Pain Assessment - Last Documented Pain Intensity 0 Pain Scale Used 0-10 Pain Scale Intake and Output: Intake & Output 11/19/09/20/22 09/21/22 09/22/22 11:59 11:59 11:59 11:59 Intake Total 2740 2280 Balance 2740 2280 Weight 108.862 kg 108.9 kg 108.9 kg Lab Results: Lab Results-Last 24 Hours 09/20/22 Range/Units 15:56 ESR 7 (0-20) mm/hr Radiology Exams: Radiology Procedures Category Date Time Status CHEST 1 VIEW (PORTABLE) Stat Exams 09/19/22 12:28 Completed CHEST WITH CONTRAST [CT] Stat Exams 09/19/22 14:33 Completed THYROID [US] Routine Exams 09/21/22 09:31 Completed Multi-Disciplinary Progress Notes: Multi-Disciplinary Progress Notes 09/20/22 17:07 Respiratory Note by Candace Palacios Dr. ask for RT to walk pt in [place] with P.O. Sats 98% HR 110-114. New order from Dr. Sunshine: Pulmicort 0.5mg BID Initialized on 09/20/22 17:07 - END OF NOTE Assessment/Plan (1) Chest pain Current Visit: Yes Status: Acute Qualifiers: Chest pain type: chest pain on breathing Qualified Code(s): R07.1 - Chest pain on breathing; R07.81 - Pleurodynia Assessment & Plan: Chief Complaint Diagnosis CP, Dyspnea Allergies Allergy/AdvReac Type Severity Reaction Status Date / Time ketorolac [From Toradol] Allergy Severe Hives Verified 09/01/22 11:52 latex Allergy Severe STOPPED Verified 09/01/22 11:52 BREATHING prochlorperazine Allergy Severe Hives and Verified 09/01/22 11:52 [From Compazine] shakes Influenza Virus Vaccines Allergy Mild headache Verified 09/01/22 11:52 vomiting levothyroxine sodium Allergy Mild Migranes Verified 09/01/22 11:52 [From Synthroid] methylphenidate Allergy migranes Verified 09/01/22 11:52 [From Ritalin] aspirin AdvReac Mild Vomiting Verified 09/01/22 11:52 medidate AdvReac Mild VOMTIING Uncoded 09/01/22 11:52 Vital Signs (Last 24 hours) Temp Pulse Resp BP Pulse Ox 09/21/22 11:42 97.3 F 90 17 128/72 96 09/21/22 07:38 96 H 16 98 09/21/22 07:18 97.1 F 72 17 129/60 96 09/21/22 03:54 97.1 F 67 18 115/56 98 09/21/22 02:15 82 16 97 09/20/22 23:19 98.0 F 83 16 116/67 96 09/20/22 20:07 65 18 98 09/20/22 20:00 97.5 F 73 18 116/54 98 09/20/22 16:00 97.5 F 77 18 133/74 98 09/20/22 13:19 66 20 99 Home Medications Medication Instructions Recorded Confirmed Last Taken Type Budesonide 0.5 mg/2 ml 0.5 mg IH DAILY PRN PRN 09/19/22 09/19/22 Unknown History [Pulmicort 0.5 mg/2 ml Respules] Fluoxetine HCl [Prozac] 20 mg PO DAILY 09/19/22 09/19/22 Unknown History Ipratropium/Albuterol Sulfate 4 gm IH DAILY PRN PRN 09/19/22 09/19/22 Unknown History [Combivent Respimat Inhal [place]] Current Medications Generic Name Dose Route Start Last Admin Trade Name Freq PRN Reason Stop Dose Admin Acetaminophen 650 mg 09/19/22 15:52 09/19/22 20:24 Acetaminophen 325 Mg Tablet PO 10/19/22 15:51 650 mg Q4H PRN PRN Administration PAIN AND/OR FEVER Albuterol/Ipratropium 3 ml 09/19/22 19:00 09/21/22 07:35 Ipratropium/Albuterol Sulfate 3 Ml Ampul.Neb IH 10/19/22 18:59 3 ml Q6HRT JAH Administration Budesonide 0.5 mg 09/20/22 19:00 09/20/22 20:07 Budesonide 0.5 Mg/2 Ml Ampul.Neb. IH 10/20/22 18:59 0.5 mg BIDRT JAH Administration Methylprednisolone Sodium 0 mg 09/21/22 10:00 09/21/22 10:01 Succinate 40 mg/ Sterile Water IV 10/21/22 09:59 40 mg 1 ml Q8H JAH Administration Cyclobenzaprine HCl 10 mg 09/20/22 18:00 09/21/22 11:16 Cyclobenzaprine Hcl 10 Mg Tablet PO 10/20/22 17:59 10 mg Q6H JAH Administration Enoxaparin Sodium 40 mg 09/20/22 10:00 09/21/22 09:58 Enoxaparin Sodium 40 Mg/0.4 Ml Syringe SQ 10/20/22 09:59 40 mg DAILY JAH Administration Fluoxetine HCl 20 mg 09/20/22 14:00 09/21/22 09:57 Fluoxetine Hcl 20 Mg Cap PO 10/20/22 13:59 20 mg DAILY JAH Administration Hydroxyzine HCl 25 mg 09/20/22 13:49 Hydroxyzine Hcl 25 Mg Tablet PO 10/20/22 13:48 QIDPRN PRN ANXIETY Miscellaneous Information 1 each 09/20/22 14:00 Medication Intervention 1 Each Each 10/20/22 13:59 .RN TO CHECK JAH Morphine Sulfate 2 mg 09/19/22 15:52 09/20/22 12:21 Morphine Sulfate 2 Mg/Ml Inj IV 09/24/22 15:51 2 mg Q4H PRN PRN Administration PAIN Non-Formulary Drug : 0.5 each 09/21/22 10:00 09/21/22 09:57 [place] Thyroid 60 Mg PO 10/21/22 09:59 0.5 each Tablet DAILY JAH Administration Ondansetron HCl 4 mg 09/19/22 15:52 09/20/22 12:21 Ondansetron Hcl 4 Mg/2 Ml Vial IV 10/19/22 15:51 4 mg Q6H PRN PRN Administration NAUSEA/VOMITING Pantoprazole Sodium 40 mg 09/21/22 10:00 09/21/22 09:57 Protonix (Pantoprazole) 40 Mg Tablet PO 10/21/22 09:59 40 mg DAILY JAH Administration Discontinued Medications Generic Name Dose Route Start Last Admin Trade Name Freq PRN Reason Stop Dose Admin Albuterol/Ipratropium 3 ml 09/19/22 13:22 09/19/22 13:41 Ipratropium/Albuterol Sulfate 3 Ml Ampul.Neb IH 09/19/22 13:23 3 ml STAT ONE Administration Albuterol/Ipratropium Confirm 09/19/22 13:40 Ipratropium/Albuterol Sulfate 3 Ml Ampul.Neb Administered 09/19/22 13:41 Dose 3 ml IH .STK-MED ONE Aspirin 324 mg 09/19/22 13:21 09/19/22 13:36 Aspirin 81 Mg Tab.Chew PO 09/19/22 13:22 Not Given STAT ONE Aspirin Confirm 09/19/22 13:34 Aspirin 81 Mg Tab.Chew Administered 09/19/22 13:35 Dose 324 mg .ROUTE .STK-MED ONE Budesonide 0.5 mg 09/20/22 13:50 Budesonide 0.5 Mg/2 Ml Ampul.Neb. IH 10/20/22 13:49 DAILY PRN PRN breathing Ibuprofen 600 mg 09/19/22 15:26 09/19/22 15:29 Ibuprofen 600 Mg Tablet PO 09/19/22 15:27 600 mg STAT ONE Administration Ibuprofen Confirm 09/19/22 15:29 Ibuprofen 600 Mg Tablet Administered 09/19/22 15:30 Dose 600 mg .ROUTE .STK-MED ONE Methylprednisolone Sodium Succinate 40 mg 09/20/22 18:00 09/21/22 02:54 Methylprednisolone Sod Suc 40m 40 Mg/Ml Vial IV 10/20/22 17:59 40 mg Q8H JAH Administration Morphine Sulfate 4 mg 09/19/22 13:40 09/19/22 13:48 Morphine Sulfate 4 Mg/Ml Injection IV 09/19/22 13:41 4 mg STAT ONE Administration Morphine Sulfate Confirm 09/19/22 13:46 Morphine Sulfate 4 Mg/Ml Injection Administered 09/19/22 13:47 Dose 4 mg .ROUTE .STK-MED ONE Non-Formulary Medication 30 mg 09/21/22 10:00 Thyroid,Pork [[place] Thyroid] PO 10/21/22 09:59 DAILY JAH Ondansetron HCl 4 mg 09/19/22 13:40 09/19/22 13:47 Ondansetron Hcl 4 Mg/2 Ml Vial IV 09/19/22 13:41 4 mg STAT ONE Administration Ondansetron HCl Confirm 09/19/22 13:45 Ondansetron Hcl 4 Mg/2 Ml Vial Administered 09/19/22 13:46 Dose 4 mg .ROUTE .STK-MED ONE Pantoprazole Sodium 40 mg 09/20/22 10:00 09/20/22 08:07 Pantoprazole 40 Mg Vial IV 10/20/22 09:59 40 mg Q24H10 JAH Administration Sterile Water Confirm 09/20/22 18:15 Water For Injection,Sterile 10 Ml Vial Administered 09/20/22 18:16 Dose 10 ml IJ .STK-MED ONE Sterile Water Confirm 09/21/22 02:45 Water For Injection,Sterile 10 Ml Vial Administered 09/21/22 02:46 Dose 10 ml IJ .STK-MED ONE Intake & Output (Last 24 hours) 09/19/22 09/20/22 09/21/22 09/22/22 11:59 11:59 11:59 11:59 Intake Total 2740 2280 Balance 2740 2280 Weight 108.862 kg 108.9 kg 108.9 kg Laboratory Results (Last 24 hours) 09/20/22 15:56 ESR 7 Orders (Last 24 hours) Category Date Time Status THYROID [US] Routine Exams 09/21/22 09:31 Completed SED RATE [Erythrocyte Sedimentation Rate] Routine Lab 09/20/22 15:56 Completed Budesonide 0.5 mg/2 ml [Pulmicort 0.5 mg/2 ml Med 09/20/22 19:00 Active Respules] 0.5 mg IH BIDRT Budesonide 0.5 mg/2 ml [Pulmicort 0.5 mg/2 ml Med 09/20/22 13:50 Discontinued Respules] 0.5 mg IH DAILY PRN PRN Cyclobenzaprine HCl 10 mg [Cyclobenzaprine 10 MG] Med 09/20/22 18:00 Active 10 mg PO Q6H Fluoxetine HCl 20 mg [Prozac 20 MG] Med 09/20/22 14:00 Active 20 mg PO DAILY Hydroxyzine HCl 25 mg [Atarax 25 mg] Med 09/20/22 13:49 Active 25 mg PO QIDPRN PRN Medication Intervention Med 09/20/22 14:00 Active 1 each MC .RN TO CHECK Methylprednisolone Sod Suc 40M [solu-MEDROL] Med 09/20/22 18:00 Discontinued 40 mg IV Q8H Methylprednisolone Sod Suc 40M [solu-MEDROL] 40 mg Med 09/21/22 10:00 Active Water For Injection,Sterile [Sterile H2O 10 ml] 1 ml IV Q8H Non-Formulary Drug [Non-Formulary Item] Med 09/21/22 10:00 Active 0.5 each PO DAILY PANTOPRAZOLE 40 mg Tablet [Protonix 40MG Tablet] Med 09/21/22 10:00 Active 40 mg PO DAILY Thyroid,Pork [[place] Thyroid] Med 09/21/22 10:00 Discontinued 30 mg PO DAILY Water For Injection,Sterile [Sterile H2O 10 ml] Med 09/20/22 18:15 Discontinued 10 ml IJ .STK-MED ONE Water For Injection,Sterile [Sterile H2O 10 ml] Med 09/21/22 02:45 Discontinued 10 ml IJ .STK-MED ONE Patient Care Notes (Last 24 hours) 09/20/22 17:07 Respiratory Note by Candace Palacios Dr. ask for RT to walk pt in [place] with P.O. Sats 98% HR 110-114. New order from Dr. Sunshine: Pulmicort 0.5mg BID Initialized on 09/20/22 17:07 - END OF NOTE Code(s): R07.9 - CHEST PAIN, UNSPECIFIED (2) Dyspnea Current Visit: Yes Status: Acute Qualifiers: Dyspnea type: shortness of breath Qualified Code(s): R06.02 - Shortness of breath; R06.00 - Dyspnea, unspecified; R06.01 - Orthopnea Code(s): R06.00 - DYSPNEA, UNSPECIFIED
[2022-09-21 16:59] VITALS: BP 131/57; PULSE 98; O2SAT 96
--- NOTE | 2022-09-22 12:52 | PCM.DS ---
Discharge Summary Date of Admission: 09/19/22 15:37 Admitting Physician: JAQUELINE CROWE DO Primary Care Provider: HIREN,YESICA Allergies Allergies ketorolac [From Toradol] Allergy (Severe, Verified 09/01/22 11:52) Hives latex Allergy (Severe, Verified 09/01/22 11:52) STOPPED BREATHING prochlorperazine [From Compazine] Allergy (Severe, Verified 09/01/22 11:52) Hives and shakes Influenza Virus Vaccines Allergy (Mild, Verified 09/01/22 11:52) headache vomiting levothyroxine sodium [From Synthroid] Allergy (Mild, Verified 09/01/22 11:52) Migranes methylphenidate [From Ritalin] Allergy (Verified 09/01/22 11:52) migranes aspirin Adverse Reaction (Mild, Verified 09/01/22 11:52) Vomiting medidate Adverse Reaction (Mild, Uncoded 09/01/22 11:52) VOMTIING Hospital Summary - Hospital Course Hospital Course: Chief Complaint Diagnosis CP, Dyspnea Allergies Allergy/AdvReac Type Severity Reaction Status Date / Time ketorolac [From Toradol] Allergy Severe Hives Verified 09/01/22 11:52 latex Allergy Severe STOPPED Verified 09/01/22 11:52 BREATHING prochlorperazine Allergy Severe Hives and Verified 09/01/22 11:52 [From Compazine] shakes Influenza Virus Vaccines Allergy Mild headache Verified 09/01/22 11:52 vomiting levothyroxine sodium Allergy Mild Migranes Verified 09/01/22 11:52 [From Synthroid] methylphenidate Allergy migranes Verified 09/01/22 11:52 [From Ritalin] aspirin AdvReac Mild Vomiting Verified 09/01/22 11:52 medidate AdvReac Mild VOMTIING Uncoded 09/01/22 11:52 Vital Signs (Last 24 hours) Temp Pulse Resp BP Pulse Ox 09/21/22 16:00 97.8 F 98 H 17 131/57 96 09/21/22 13:12 112 H 22 98 Home Medications Medication Instructions Recorded Confirmed Last Taken Type Budesonide 0.5 mg/2 ml 0.5 mg IH DAILY PRN PRN 09/19/22 09/19/22 Unknown Hist ory [Pulmicort 0.5 mg/2 ml Respules] Fluoxetine HCl [Prozac] 20 mg PO DAILY 09/19/22 09/19/22 Unknown History Ipratropium/Albuterol Sulfate 4 gm IH DAILY PRN PRN 09/19/22 09/19/22 Unknown History [Combivent Respimat Inhal [place]] Current Medications Discontinued Medications Generic Name Dose Route Start Last Admin Trade Name Freq PRN Reason Stop Dose Admin Acetaminophen 650 mg 09/19/22 15:52 09/19/22 20:24 Acetaminophen 325 Mg Tablet PO 10/19/22 15:51 650 mg Q4H PRN PRN Administration PAIN AND/OR FEVER Albuterol/Ipratropium 3 ml 09/19/22 13:22 09/19/22 13:41 Ipratropium/Albuterol Sulfate 3 Ml Ampul.Neb IH 09/19/22 13:23 3 ml STAT ONE Administration Albuterol/Ipratropium Confirm 09/19/22 13:40 Ipratropium/Albuterol Sulfate 3 Ml Ampul.Neb Administered 09/19/22 13:41 Dose 3 ml IH .STK-MED ONE Albuterol/Ipratropium 3 ml 09/19/22 19:00 09/21/22 13:12 Ipratropium/Albuterol Sulfate 3 Ml Ampul.Neb IH 10/19/22 18:59 3 ml Q6HRT JAH Administration Aspirin 324 mg 09/19/22 13:21 09/19/22 13:36 Aspirin 81 Mg Tab.Chew PO 09/19/22 13:22 Not Given STAT ONE Aspirin Confirm 09/19/22 13:34 Aspirin 81 Mg Tab.Chew Administered 09/19/22 13:35 Dose 324 mg .ROUTE .STK-MED ONE Budesonide 0.5 mg 09/20/22 13:50 Budesonide 0.5 Mg/2 Ml Ampul.Neb. IH 10/20/22 13:49 DAILY PRN PRN breathing Budesonide 0.5 mg 09/20/22 19:00 09/20/22 20:07 Budesonide 0.5 Mg/2 Ml Ampul.Neb. 10/20/22 18:59 0.5 mg BIDRT JAH Administration Methylprednisolone Sodium 0 mg 09/21/22 10:00 09/21/22 10:01 Succinate 40 mg/ Sterile Water IV 10/21/22 09:59 40 mg 1 ml Q8H JAH Administration Cyclobenzaprine HCl 10 mg 09/20/22 18:00 09/21/22 11:16 Cyclobenzaprine Hcl 10 Mg Tablet PO 10/20/22 17:59 10 mg Q6H JAH Administration Enoxaparin Sodium 40 mg 09/20/22 10:00 09/21/22 09:58 Enoxaparin Sodium 40 Mg/0.4 Ml Syringe SQ 10/20/22 09:59 40 mg DAILY JAH Administration Fluoxetine HCl 20 mg 09/20/22 14:00 09/21/22 09:57 Fluoxetine Hcl 20 Mg Cap PO 10/20/22 13:59 20 mg DAILY JAH Administration Hydroxyzine HCl 25 mg 09/20/22 13:49 Hydroxyzine Hcl 25 Mg Tablet PO 10/20/22 13:48 QIDPRN PRN ANXIETY Ibuprofen 600 mg 09/19/22 15:26 09/19/22 15:29 Ibuprofen 600 Mg Tablet PO 09/19/22 15:27 600 mg STAT ONE Administration Ibuprofen Confirm 09/19/22 15:29 Ibuprofen 600 Mg Tablet Administered 09/19/22 15:30 Dose 600 mg .ROUTE .STK-MED ONE Methylprednisolone Sodium Succinate 40 mg 09/20/22 18:00 09/21/22 02:54 Methylprednisolone Sod Suc 40m 40 Mg/Ml Vial IV 10/20/22 17:59 40 mg Q8H JAH Administration Miscellaneous Information 1 each 09/20/22 14:00 Medication Intervention 1 Each Each 10/20/22 13:59 .RN TO CHECK JAH Morphine Sulfate 4 mg 09/19/22 13:40 09/19/22 13:48 Morphine Sulfate 4 Mg/Ml Injection IV 09/19/22 13:41 4 mg STAT ONE Administration Morphine Sulfate Confirm 09/19/22 13:46 Morphine Sulfate 4 Mg/Ml Injection Administered 09/19/22 13:47 Dose 4 mg .ROUTE .STK-MED ONE Morphine Sulfate 2 mg 09/19/22 15:52 09/20/22 12:21 Morphine Sulfate 2 Mg/Ml Inj IV 09/24/22 15:51 2 mg Q4H PRN PRN Administration PAIN Non-Formulary Medication 30 mg 09/21/22 10:00 Thyroid,Pork [[place] Thyroid] PO 10/21/22 09:59 DAILY JAH Non-Formulary Drug : 0.5 each 09/21/22 10:00 09/21/22 09:57 [place] Thyroid 60 Mg PO 10/21/22 09:59 0.5 each Tablet DAILY JAH Administration Ondansetron HCl 4 mg 09/19/22 13:40 09/19/22 13:47 Ondansetron Hcl 4 Mg/2 Ml Vial IV 09/19/22 13:41 4 mg STAT ONE Administration Ondansetron HCl Confirm 09/19/22 13:45 Ondansetron Hcl 4 Mg/2 Ml Vial Administered 09/19/22 13:46 Dose 4 mg .ROUTE .STK-MED ONE Ondansetron HCl 4 mg 09/19/22 15:52 09/20/22 12:21 Ondansetron Hcl 4 Mg/2 Ml Vial IV 10/19/22 15:51 4 mg Q6H PRN PRN Administration NAUSEA/VOMITING Pantoprazole Sodium 40 mg 09/20/22 10:00 09/20/22 08:07 Pantoprazole 40 Mg Vial IV 10/20/22 09:59 40 mg Q24H10 JAH Administration Pantoprazole Sodium 40 mg 09/21/22 10:00 09/21/22 09:57 Protonix (Pantoprazole) 40 Mg Tablet PO 10/21/22 09:59 40 mg DAILY JAH Administration Sterile Water Confirm 09/20/22 18:15 Water For Injection,Sterile 10 Ml Vial Administered 09/20/22 18:16 Dose 10 ml IJ .STK-MED ONE Sterile Water Confirm 09/21/22 02:45 Water For Injection,Sterile 10 Ml Vial Administered 09/21/22 02:46 Dose 10 ml IJ .STK-MED ONE Intake & Output (Last 24 hours) 09/20/22 09/21/22 09/22/22 09/23/22 11:59 11:59 11:59 11:59 Intake Total 2740 2280 500 Balance 2740 2280 500 Weight 108.9 kg 108.9 kg Orders (Last 24 hours) Category Date Time Status Discharge Routine Discharge 09/21/22 14:05 Ordered Patient Care Notes (Last 24 hours) 09/21/22 14:38 Nursing Note by Ava Walker CALLED [facility] TO CHECK ON RX THAT WERE FILLED 09/18/22. 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 She stated that when she was discharged from [facility] she was sent home with antibiotics and steroids. She was to follow the pl an of care of completing the doses and then will follow up with Dr Mistry on 10/08/2022 at 1515. She stated that he did not have any other recommendations that would keep the patient in the hospital. Notified the patient of the conversation with Dr Mistry's office, she stated that she had already finished the doses that he has prescribed. Upon looking up the patient medication history from the pharmacy the patient had more steroids sent into [facility] pharmacy on 09/18/22. DARIUS Escalante is currently contacting [facility] pharmacy to see if they had been picked up yet. Initialized on 09/21/22 14:40 - END OF NOTE - Vitals & Intake/Output Vital Signs: Vital Signs Temperature 97.8 F 09/21/22 16:00 Pulse Rate 98 H 09/21/22 16:00 Respiratory Rate 17 09/21/22 16:00 Blood Pressure 131/57 09/21/22 16:00 O2 Sat by Pulse Oximetry 96 09/21/22 16:00 Intake & Output: Intake & Output 09/20/22 09/21/22 09/22/22 09/23/22 11:59 11:59 11:59 11:59 Intake Total 2740 2280 500 Balance 2740 2280 500 Weight 108.9 kg 108.9 kg - Lab Result Diagrams: 09/20/22 05:19 09/20/22 05:19 - Radiology Exams Ordered Rad Exams-Entire Visit: Radiology Procedures Category Date Time Status THYROID [US] Routine Exams 09/21/22 09:31 Completed - Procedures and Test Procedures and Tests throughout Hospitalization: Therapy Orders & Screens 09/19/22 13:41 Respiratory Therapy Assessment DAILY Comment: Diagnosis: CP, Dyspnea 09/19/22 16:43 RT Screen per Nursing Assess ONCE Comment: Protocol Order Physician Instructions: Greater than 3 points order RT Admission Screen Reason For Exam: Triggered on Admission Diagnosis: CP, Dyspnea Diagnosis: CP, Dyspnea Pneumonia: No Home O2: No Asthma: Yes CHF: No Home CPAP/BIPAP: Yes Home Nebs/MDI: Yes Total Points: 14 09/19/22 17:41 BiPap/CPAP ROUTINE Comment: PER HOME SETTINGS Diagnosis: CP, Dyspnea Discharge Exam General Appearance: no apparent distress, alert Neurologic Exam: alert, oriented x 3, cooperative, normal mood/affect, nml cerebellar function, sensation nml, No motor deficits Eye Exam: PERRL, EOMI, eyes nml inspection Ears, Nose, Throat Exam: normal ENT inspection, pharynx normal, moist mucous membranes Neck Exam: normal inspection, non-tender, supple, full range of motion Respiratory Exam: normal breath sounds, lungs clear, No respiratory distress Cardiovascular Exam: regular rate/rhythm, normal heart sounds Gastrointestinal/Abdomen Exam: soft, No tenderness, No mass Pelvic Exam: deferred Rectal Exam: deferred Back Exam: normal inspection, normal range of motion, No CVA tenderness, No vertebral tenderness Extremity Exam: normal inspection, normal range of motion Skin Exam: normal color, warm, dry Final Diagnosis/Problem List - Final Discharge Diagnosis/Problem (1) Chest pain Status: Resolved Code(s): R07.9 - CHEST PAIN, UNSPECIFIED (2) Dyspnea Status: Resolved Code(s): R06.00 - DYSPNEA, UNSPECIFIED - Discharge Discharge Date: 09/21/22 Disposition: Home, Self-Care Condition: Stable Prescriptions: No Action Omeprazole 20 mg PO DAILY PRN PRN Reason: Pain Thyroid,Pork [[place] Thyroid] 30 mg PO DAILY Lisdexamfetamine Dimesylate [Vyvanse] 50 mg PO DAILY Albuterol Common Canister [Ventolin Common Canister] 2 puff IH Q4H PRN PRN Reason: Shortness Of Breath Hydroxyzine HCl 25 mg [Atarax 25 mg] 25 mg PO QIDPRN PRN #120 tablet PRN Reason: Anxiety Ipratropium/Albuterol Sulfate [Combivent Respimat Inhal [place]] 4 gm IH DAILY PRN PRN PRN Reason: breathing Budesonide 0.5 mg/2 ml [Pulmicort 0.5 mg/2 ml Respules] 0.5 mg IH DAILY PRN PRN PRN Reason: breathing Fluoxetine HCl [Prozac] 20 mg PO DAILY Instructions: Shortness of Breath (Dyspnea) (DC), Chest Pain (DC), Oral Steroid Medicines Additional Instructions: keep your follow up appointment with Dr Mistry on October 08 at 315 Take your steroids as prescribed Follow up with: MIHAI MISTRY [CONSULTING PHYSICIAN] - 10/08/22 3:15 pm Forms: Discharge Instructions
[2022-09-22 16:25] LABS: Thyroid Pereoxidase (TPO) Ab 48 IU/mL (0-34)
[2022-09-23 06:25] LABS: Thyroglobulin Antibody <1.0 IU/mL (0.0-0.9)
[2022-09-23 13:14] LABS: Anti-Centromere B Antibodies <0.2 AI (0.0-0.9); Anti-Jo-1 <0.2 AI (0.0-0.9); Antichromatin Antibodies <0.2 AI (0.0-0.9); Antiribosomal P Antibodies <0.2 AI (0.0-0.9); Antiscleroderma-70 Antibodies <0.2 AI (0.0-0.9); RNP Antibodies 0.3 AI (0.0-0.9); Sjogren's Anti-SS-A <0.2 AI (0.0-0.9); Sjogren's Anti-SS-B <0.2 AI (0.0-0.9); Smith/RNP Antibodies <0.2 AI (0.0-0.9)
[2022-09-23 13:24] LABS: Anti-DNA (DS) Ab Qn 2 IU/mL (0-9); Antinuclear Antiboides, IFA Positive (.)
== END 2022-09-21 17:55 | disposition home or self-care (01) ==
LOC: ED 11:46 → MED SURG 15:37
PROVIDERS: ADMIT Family Medicine; ATTEND General Practice
DX: R07.9 Chest pain, unspecified (principal); R06.00 Dyspnea, unspecified; I49.9 Cardiac arrhythmia, unspecified; E03.9 Hypothyroidism, unspecified; Z79.899 Other long term (current) drug therapy; Z20.828 Contact with and (suspected) exposure to other viral communicable diseases
CPT/HCPCS: 0241U; 36000; 36415; 71045; 71260; 76536; 80048; 80053; 80307; 81015; 83880; 84436; 84443; 84484; 85025; 85379; 85652; 86038; 86376; 86800; 87651; 93005; 93041; 93268; 94640; 94760; 96374; 96375; 99285; G0378; J1650; J2270; J2405; J2920; A9270-GY

== ENCOUNTER 2023-03-22 18:13 | Observation (INO) | payer OTHER ==
[2023-03-22] MEDS ORDERED: solu-MEDROL 125 MG, Sterile H2O 10 ml 2 ML IV ONE ×2 (18:17)
[2023-03-22] MEDS ORDERED: Sterile H2O 10 ml IJ ONE (18:22)
[2023-03-22] MEDS ORDERED: solu-MEDROL ONE (18:22)
[2023-03-22] MEDS ORDERED: Sodium Chloride 0.9% 1000 ML 1,000 ML ONE (18:23)
[2023-03-22] MEDS ORDERED: Sodium Chloride 0.9% 1000 ML 1,000 ML IV SCH (18:30)
--- NOTE | 2023-03-22 18:57 | ERPHSYRPT ---
- History of Present Illness Source: patient Exam Limitations: no limitations Patient Subjective Stated Complaint: Pt states "I was at [facility] on wednesday and was positive for strep and it caused a flair up of my asthma and my CRP was elevated and they were not sure why." Triage Nursing Assessment: Pt presented alert and oriented X 3, skin pwd. Pt ambulates with an upright steady gait, able to speak in clear full sentences pt slighty tachypneic. PT voice raspy. Timing/Duration: day(s) (Several) Severity: moderate Modifying Factors: Improves With: rest Associated Symptoms: shortness of breath, cough, other (Sore throat) Hx Tetanus, Diphtheria Vaccination/Date Given: Yes Hx Influenza Vaccination/Date Given: No Hx Pneumococcal Vaccination/Date Given: No Immunizations Up to Date: Yes <SRINI CARLOS - Last Filed: 03/22/23 18:52> <DELROY CARDOZA - Last Filed: 03/22/23 23:56> - History of Present Illness Time Seen by Provider: 03/22/23 18:25 Physician History: Patient is a 32-year-old white female who presents with a complaint of shortness of breath primarily. She has a history of asthma she has been sick for a few days she went to [facility] a few days ago and was diagnosed with a positive strep screen on her throat/throat swab. She also apparently had an elevation of her CRP which she was then told to contact her box puller to said that they were uncertain why it was elevated she also has multiple medical problems including sick sinus syndrome and a pacemaker obstructive sleep apnea Prem's fibromyalgia and a positive OPAL. She denies any fever chills or sweats over the last few days. (SRINI CARLOS) Allergies/Adverse Reactions: ketorolac [From Toradol] Allergy (Severe, Verified 09/01/22 11:52) Hives latex Allergy (Severe, Verified 09/01/22 11:52) STOPPED BREATHING prochlorperazine [From Compazine] Allergy (Severe, Verified 09/01/22 11:52) Hives and shakes Influenza Virus Vaccines Allergy (Mild, Verified 09/01/22 11:52) headache vomiting levothyroxine sodium [From Synthroid] Allergy (Mild, Verified 09/01/22 11:52) Migranes methylphenidate [From Ritalin] Allergy (Verified 09/01/22 11:52) migranes aspirin Adverse Reaction (Mild, Verified 09/01/22 11:52) Vomiting medidate Adverse Reaction (Mild, Uncoded 09/01/22 11:52) VOMTIING Home Medications: Omeprazole 20 mg PO DAILY PRN 11/18/21 [History] Albuterol Common Canister [Ventolin Common Canister] 2 puff IH Q4H PRN 09/01/22 [History] Lisdexamfetamine Dimesylate [Vyvanse] 50 mg PO DAILY 09/01/22 [History] Ipratropium/Albuterol Sulfate [Combivent Respimat Inhal [place]] 4 gm IH DAILY PRN PRN 09/19/22 [History] Amoxicillin 500 mg PO BID 03/22/23 [History] Gabapentin [Neurontin] 600 mg PO BID 03/22/23 [History] Levothyroxine Sodium 50 Mcg [Synthroid 50 Mcg] 100 mcg PO DAILY 03/22/23 [History] Semaglutide [Ozempic] 0.25 mg SQ WEEKLY 03/22/23 [History] Travel Risk - International Travel Have you traveled outside of the country in past 3 weeks: No - Coronavirus Screening Are you exhibiting any of the following symptoms?: No Close contact with a COVID-19 positive Pt in past 14-21 Days: No - Vaccine Status Have you recieved a Covid-19 vaccination: No <SRINI CARLOS - Last Filed: 03/22/23 18:52> - Review of Systems Constitutional: No Fever, No Chills Eyes: No Symptoms Ears, Nose, & Throat: No Symptoms Respiratory: Cough, Dyspnea Cardiac: No Chest Pain, No Edema, No Syncope Abdominal/Gastrointestinal: No Abdominal Pain, No Nausea, No Vomiting, No Diarrhea Genitourinary Symptoms: No Dysuria Musculoskeletal: No Back Pain, No Neck Pain Skin: No Rash Neurological: No Dizziness, No Focal Weakness, No Sensory Changes Psychological: No Symptoms Endocrine: No Symptoms All Other Systems: Reviewed and Negative <SRINI CARLOS - Last Filed: 03/22/23 18:52> - Past Medical History Pertinent Past Medical History: Yes Neurological History: Migraines ENT History: No Pertinent History Cardiac History: Arrhythmia, Other Respiratory History: Asthma Endocrine Medical History: Hypothyroidism Musculoskeletal History: No Pertinent History GI Medical History: GERD History: No Pertinent History Psycho-Social History: Anxiety, Attention Deficit Disorder, Depression Female Reproductive Disorders: No Pertinent History Other Medical History: post depression 2019, sleep apnea, PCOS, endometreosis, triple S with bradycardic syncope, pacemaker, prem, fibromyalgia - Past Surgical History Past Surgical History: Yes Neuro Surgical History: No Pertinent History Cardiac: Pacemaker, Other Respiratory: No Pertinent History Gastrointestinal: Cholecystectomy Genitourinary: No Pertinent History Musculoskeletal: No Pertinent History Female Surgical History: Hysterectomy, Section, Other Other Surgical History: c section x3, left oopherectomy and tubal removal,. Loop crowell device (removed) - Social History Smoking Status: Former smoker How long have you smoked: 2013 Exposure to second hand smoke: No Drug Use: none Patient Lives Alone: No Significant Family History: no pertinent family hx, cancer (colon/breast), diabetes, other (Gall bladder disease) - Female History Hx Last Menstrual Period: hysterectomy Hx Now: No <SRINI CARLOS - Last Filed: 03/22/23 18:52> - Physical Exam General Appearance: mild distress, alert Eye Exam: PERRL/EOMI, eyes nml inspection Ears, Nose, Throat Exam: normal ENT inspection, TMs normal, pharynx normal, moist mucous membranes Neck Exam: normal inspection, non-tender, supple, full range of motion Respiratory Exam: normal breath sounds, lungs clear, No respiratory distress Cardiovascular Exam: regular rate/rhythm, normal heart sounds, normal peripheral pulses Gastrointestinal/Abdomen Exam: soft, normal bowel sounds, No tenderness, No mass Back Exam: normal inspection, normal range of motion, No CVA tenderness, No vertebral tenderness Extremity Exam: normal inspection, normal range of motion, pelvis stable Neurologic Exam: alert, oriented x 3, cooperative, normal mood/affect, nml cerebellar function, nml station & gait, sensation nml, No motor deficits Skin Exam: normal color, warm, dry, No rash Lymphatic Exam: No adenopathy SpO2 Interpretation: normal SpO2: 100 O2 Delivery: Room Air <VIKTORMADAISRINI - Last Filed: 03/22/23 18:52> - Nursing Vital Signs Nursing Vital Signs: Initial Vital Signs Temperature 97.8 F 03/22/23 18:14 Pulse Rate 96 H 03/22/23 18:14 Respiratory Rate 28 H 03/22/23 18:14 Blood Pressure 139/102 03/22/23 18:14 O2 Sat by Pulse Oximetry 100 03/22/23 18:14 Pain Scale Pain Intensity 7 - Course Nursing assessment & vital signs reviewed: Yes EKG Interpreted by Me: RATE (86), Sinus Rhythm, NORMAL AXIS, NORMAL INTERVALS, NORMAL QRS, Non-specific ST Changes <TERRANCESRINI - Last Filed: 03/22/23 18:52> - CT Exams Chest CT Interpretation: Negative <DELROY CARDOZA - Last Filed: 03/22/23 23:56> Ordered Tests: Active Orders 24 hr Category Date Time Status Code Status Order ROUTINE Care 03/22/23 23:41 Active EKG-ER Only STAT Care 03/22/23 18:17 Completed IV Care Q6H Care 03/22/23 23:41 Active IV Insertion STAT Care 03/22/23 18:[address] in Observation ROUTINE Care 03/22/23 23:41 Active Emma Valdes ROUTINE Care 03/22/23 23:41 Active Weight,Daily 0600 Care 03/22/23 23:41 Active House Regular Diet Diet 03/23/23 Breakfast Active CHEST 1 VIEW (PORTABLE) Stat Exams 03/22/23 18:54 Taken CHEST WITH CONTRAST [CT] Stat Exams 03/22/23 20:49 Taken BLOOD CULTURE Stat Lab 03/22/23 18:35 Received CBC AM.LAB Lab 03/23/23 04:00 Ordered CBC W DIFF Stat Lab 03/22/23 18:35 Completed CMP AM.LAB Lab 03/23/23 04:00 Ordered CMP Stat Lab 03/22/23 18:35 Completed D-DIMER QUANTITATIVE Stat Lab 03/22/23 18:35 Completed Lactic Acid Stat Lab 03/22/23 18:55 Completed MAGNESIUM AM.LAB Lab 03/23/23 04:00 Ordered MAGNESIUM Stat Lab 03/22/23 18:35 Completed NT PRO BNPII Stat Lab 03/22/23 18:35 Completed SED RATE [Erythrocyte Sedimentation Rate] Stat Lab 03/22/23 18:35 Completed T4 (Thyroxine) Stat Lab 03/22/23 18:35 Completed TROPONIN Q4H Lab 03/22/23 18:35 Completed TROPONIN Q4H Lab 03/22/23 22:00 Completed TSH, 3RD Generation Stat Lab 03/22/23 18:35 Completed Transfer Order Routine Transfer 03/22/23 Completed Medication Summary Generic Name Dose Route Start Last Admin Trade Name Alis PRN Reason Stop Dose Admin Albuterol/Ipratropium 3 ml 03/22/23 23:41 Ipratropium/Albuterol Sulfate 3 Ml Ampul.Neb IH 04/21/23 23:40 Q4HRT [facility] Methylprednisolone Sodium 0 mg 03/23/23 00:00 Succinate 80 mg/ Sterile Water IV 04/22/23 00:00 2 ml Q6HT [facility] Enoxaparin Sodium 40 mg 03/23/23 10:00 Enoxaparin Sodium 40 Mg/0.4 Ml Syringe SQ 04/22/23 09:59 DAILY JAH Famotidine 20 mg 03/23/23 10:00 Famotidine 20 Mg/1 Vial IV 04/22/23 09:59 Q12HT [facility] Sodium Chloride 1,000 mls @ 50 mls/hr 03/22/23 23:41 Sodium Chloride 0.9% 1000 Ml IV 04/21/23 23:40 .Q20H [facility] Discontinued Medications Generic Name Dose Route Start Last Admin Trade Name Alis PRN Reason Stop Dose Admin Acetaminophen 500 mg 03/22/23 20:40 03/22/23 21:25 Acetaminophen 500 Mg Tablet PO 03/22/23 20:41 500 mg STAT STA Administration Acetaminophen Confirm 03/22/23 21:23 Acetaminophen 500 Mg Tablet Administered 03/22/23 21:24 Dose 500 mg .ROUTE .STK-MED ONE Methylprednisolone Sodium 0 mg 03/22/23 18:17 03/22/23 18:24 Succinate 125 mg/ Sterile IV 03/22/23 18:18 120 mg Water 2 ml STAT ONE Administration Cyclobenzaprine HCl 10 mg 03/22/23 21:18 03/22/23 21:25 Cyclobenzaprine Hcl 10 Mg Tablet PO 03/22/23 21:19 10 mg STAT ONE Administration Cyclobenzaprine HCl Confirm 03/22/23 21:23 Cyclobenzaprine Hcl 10 Mg Tablet Administered 03/22/23 21:24 Dose 10 mg .ROUTE .STK-MED ONE Sodium Chloride 1,000 mls @ 100 mls/hr 03/22/23 18:30 03/22/23 18:23 Sodium Chloride 0.9% 1000 Ml IV 04/21/23 18:29 100 mls/hr .Q10H JAH Administration Sodium Chloride Confirm 03/22/23 18:23 Sodium Chloride 0.9% 1000 Ml Administered 03/22/23 18:24 Dose 1,000 mls @ ud .ROUTE .STK-MED ONE Methylprednisolone Sodium Succinate Confirm 03/22/23 18:22 Methylprednisolone Sod Suc 40m 40 Mg/Ml Vial Administered 03/22/23 18:23 Dose 120 mg .ROUTE .STK-MED ONE Morphine Sulfate 2 mg 03/22/23 23:14 03/22/23 23:18 Morphine Sulfate 2 Mg/Ml Inj IV 03/22/23 23:15 2 mg STAT ONE Administration Morphine Sulfate Confirm 03/22/23 23:17 Morphine Sulfate 2 Mg/Ml Inj Administered 03/22/23 23:18 Dose 2 mg .ROUTE .STK-MED ONE Ondansetron HCl 4 mg 03/22/23 19:36 03/22/23 19:43 Ondansetron Hcl 4 Mg/2 Ml Vial IV 03/22/23 19:37 4 mg STAT ONE Administration Ondansetron HCl Confirm 03/22/23 19:41 Ondansetron Hcl 4 Mg/2 Ml Vial Administered 03/22/23 19:42 Dose 4 mg .ROUTE .STK-MED ONE Pantoprazole Sodium 40 mg 03/22/23 19:35 03/22/23 19:43 Pantoprazole 40 Mg Vial IV 03/22/23 19:36 40 mg STAT ONE Administration Pantoprazole Sodium Confirm 03/22/23 19:41 Pantoprazole 40 Mg Vial Administered 03/22/23 19:42 Dose 40 mg IV .STK-MED ONE Potassium Chloride 40 meq 03/22/23 20:57 03/22/23 21:25 Potassium Chloride Tab 10 Meq Tab PO 03/22/23 20:58 40 meq STAT ONE Administration Potassium Chloride Confirm 03/22/23 21:24 Potassium Chloride Tab 10 Meq Tab Administered 03/22/23 21:25 Dose 40 meq PO .STK-MED ONE Sterile Water Confirm 03/22/23 18:22 Water For Injection,Sterile 10 Ml Vial Administered 03/22/23 18:23 Dose 10 ml IJ .STK-MED ONE Lab/Rad Data: Laboratory Result Diagrams 03/22/23 18:35 03/22/23 18:35 Laboratory Results 03/22/23 03/22/23 03/22/23 Range/Units 22:00 18:55 18:35 WBC (4.0-10.5) x10^3/uL RBC (4.1-5.4) x10^6/uL Hgb (12.0-16.0) g/dL Hct (35-47) % MCV (78-100) fL MCH (26-32) pg MCHC (32-36) g/dL RDW (11.5-14.0) % Plt Count (150-450) x10^3/uL MPV (7.5-11.0) fL Gran % (36.0-66.0) % Immature Gran % (Auto) (0.00-0.4) % Nucleat RBC Rel Count (0.00-0.1) % Eos # (Auto) (0-0.5) x10^3/uL Immature Gran # (Auto) (0.00-0.03) x10^3u/L Absolute Lymphs (auto) (1.0-4.6) x10^3/uL Absolute Monos (auto) (0.0-1.3) x10^3/uL Absolute Nucleated RBC (0.00-0.01) x10^3u/L Lymphocytes % (24.0-44.0) % Monocytes % (0.0-12.0) % Eosinophils % (0.00-5.0) % Basophils % (0.0-0.4) % Absolute Granulocytes (1.4-6.9) x10^3/uL Basophils # (0-0.4) x10^3/uL ESR 20 (0-20) mm/hr D-Dimer (0.0-0.50) mg/L Sodium (137-145) mmol/L Potassium (3.5-5.1) mmol/L Chloride (98-107) mmol/L Carbon Dioxide (22-30) mmol/L Anion Gap (5-15) MEQ/L BUN (7-17) mg/dL Creatinine (0.52-1.04) mg/dL Estimated GFR ML/MIN Glucose (74-106) mg/dL Lactic Acid 1.5 (0.4-2.0) Calcium (8.4-10.2) mg/dL Magnesium (1.6-2.3) mg/dL Total Bilirubin (0.2-1.3) mg/dL AST (14-36) U/L ALT (0-35) U/L Alkaline Phosphatase (38-126) U/L Troponin I < 0.012 (0.000-0.034) ng/mL NT-Pro-B Natriuret Pep (<300) pg/mL Serum Total Protein (6.3-8.2) g/dL Albumin (3.5-5.0) g/dL Thyroxine (T4) (5.53-10.96) ug/dL TSH 3rd Generation (0.47-4.68) mIU/L Influenza Type A Ag (NEGATIVE) Influenza Type B Ag (NEGATIVE) RSV (PCR) (NEGATIVE) SARS-CoV-2 (PCR) (NEGATIVE) 03/22/23 03/22/23 03/22/23 Range/Units 18:35 18:35 18:35 WBC (4.0-10.5) x10^3/uL RBC (4.1-5.4) x10^6/uL Hgb (12.0-16.0) g/dL Hct (35-47) % MCV (78-100) fL MCH (26-32) pg MCHC (32-36) g/dL RDW (11.5-14.0) % Plt Count (150-450) x10^3/uL MPV (7.5-11.0) fL Gran % (36.0-66.0) % Immature Gran % (Auto) (0.00-0.4) % Nucleat RBC Rel Count (0.00-0.1) % Eos # (Auto) (0-0.5) x10^3/uL Immature Gran # (Auto) (0.00-0.03) x10^3u/L Absolute Lymphs (auto) (1.0-4.6) x10^3/uL Absolute Monos (auto) (0.0-1.3) x10^3/uL Absolute Nucleated RBC (0.00-0.01) x10^3u/L Lymphocytes % (24.0-44.0) % Monocytes % (0.0-12.0) % Eosinophils % (0.00-5.0) % Basophils % (0.0-0.4) % Absolute Granulocytes (1.4-6.9) x10^3/uL Basophils # (0-0.4) x10^3/uL ESR (0-20) mm/hr D-Dimer 0.99 H* (0.0-0.50) mg/L Sodium (137-145) mmol/L Potassium (3.5-5.1) mmol/L Chloride (98-107) mmol/L Carbon Dioxide (22-30) mmol/L Anion Gap (5-15) MEQ/L BUN (7-17) mg/dL Creatinine (0.52-1.04) mg/dL Estimated GFR ML/MIN Glucose (74-106) mg/dL Lactic Acid (0.4-2.0) Calcium (8.4-10.2) mg/dL Magnesium (1.6-2.3) mg/dL Total Bilirubin (0.2-1.3) mg/dL AST (14-36) U/L ALT (0-35) U/L Alkaline Phosphatase (38-126) U/L Troponin I < 0.012 (0.000-0.034) ng/mL NT-Pro-B Natriuret Pep (<300) pg/mL Serum Total Protein (6.3-8.2) g/dL Albumin (3.5-5.0) g/dL Thyroxine (T4) (5.53-10.96) ug/dL TSH 3rd Generation (0.47-4.68) mIU/L Influenza Type A Ag NEGATIVE (NEGATIVE) Influenza Type B Ag NEGATIVE (NEGATIVE) RSV (PCR) NEGATIVE (NEGATIVE) SARS-CoV-2 (PCR) NEGATIVE (NEGATIVE) 03/22/23 03/22/23 Range/Units 18:35 18:35 WBC 6.1 (4.0-10.5) x10^3/uL RBC 5.29 (4.1-5.4) x10^6/uL Hgb 13.0 (12.0-16.0) g/dL Hct 40.7 (35-47) % MCV 76.9 L (78-100) fL MCH 24.6 L (26-32) pg MCHC 31.9 L (32-36) g/dL RDW 13.5 (11.5-14.0) % Plt Count 262 (150-450) x10^3/uL MPV 10.8 (7.5-11.0) fL Gran % 62.2 (36.0-66.0) % Immature Gran % (Auto) 0.3 (0.00-0.4) % Nucleat RBC Rel Count 0.0 (0.00-0.1) % Eos # (Auto) 0.10 (0-0.5) x10^3/uL Immature Gran # (Auto) 0.02 (0.00-0.03) x10^3u/L Absolute Lymphs (auto) 1.79 (1.0-4.6) x10^3/uL Absolute Monos (auto) 0.37 (0.0-1.3) x10^3/uL Absolute Nucleated RBC 0.00 (0.00-0.01) x10^3u/L Lymphocytes % 29.5 (24.0-44.0) % Monocytes % 6.1 (0.0-12.0) % Eosinophils % 1.6 (0.00-5.0) % Basophils % 0.3 (0.0-0.4) % Absolute Granulocytes 3.77 (1.4-6.9) x10^3/uL Basophils # 0.02 (0-0.4) x10^3/uL ESR (0-20) mm/hr D-Dimer (0.0-0.50) mg/L Sodium 141 (137-145) mmol/L Potassium 3.1 L (3.5-5.1) mmol/L Chloride 104 (98-107) mmol/L Carbon Dioxide 25 (22-30) mmol/L Anion Gap 14.9 (5-15) MEQ/L BUN 10 (7-17) mg/dL Creatinine 0.74 (0.52-1.04) mg/dL Estimated GFR > 60.0 ML/MIN Glucose 93 (74-106) mg/dL Lactic Acid (0.4-2.0) Calcium 9.2 (8.4-10.2) mg/dL Magnesium 2.1 (1.6-2.3) mg/dL Total Bilirubin 0.60 (0.2-1.3) mg/dL AST 45 H (14-36) U/L ALT 88 H (0-35) U/L Alkaline Phosphatase 84 (38-126) U/L Troponin I (0.000-0.034) ng/mL NT-Pro-B Natriuret Pep 33.7 (<300) pg/mL Serum Total Protein 7.8 (6.3-8.2) g/dL Albumin 4.3 (3.5-5.0) g/dL Thyroxine (T4) 14.7 H (5.53-10.96) ug/dL TSH 3rd Generation 2.070 (0.47-4.68) mIU/L Influenza Type A Ag (NEGATIVE) Influenza Type B Ag (NEGATIVE) RSV (PCR) (NEGATIVE) SARS-CoV-2 (PCR) (NEGATIVE) - Progress Progress: unchanged <SRINI CARLOS - Last Filed: 03/22/23 18:52> - Progress Discussed with : Corina Will see patient in: hospital (observation) Counseled pt/family regarding: lab results, need for follow-up, rad results <DELROY CARDOZA - Last Filed: 03/22/23 23:56> - Progress Progress Note: Discussed admission w/ Dr. Sunshine who accepts at 2243. CTA due to elevated d-dimer showed no PE. K 3.1, so 40kcl given. Muscle relaxer didn't help pain. Steroids did help pain and breathing. (DELROY CARDOZA) - Departure Departure Disposition: Home Critical Care Time: No <SRINI CARLOS - Last Filed: 03/22/23 18:52> - Departure Departure Disposition: Observation <DELROY CARDOZA - Last Filed: 03/22/23 23:56> - Departure Clinical Impression: Shortness of breath, Hypokalemia, Transaminitis, Elevated serum free T4 level, Intractable pain Condition: Good
[2023-03-22 18:58] LABS: Absolute Neutrophil Ct (ANC) 3.77 x10^3/uL (1.4-6.9); BASOPHIL % 0.3 % (0.0-0.4); Basophil (Absolute #) 0.02 x10^3/uL (0-0.4); Eosinophil % 1.6 % (0.00-5.0); Hematocrit 40.7 % (35-47); IMMATURE GRAN # 0.02 x10^3u/L (0.00-0.03); IMMATURE GRAN % 0.3 % (0.00-0.4); Lymphocyte (Absolute #) 1.79 x10^3/uL (1.0-4.6); Lymphocytes % 29.5 % (24.0-44.0); Mean Cell Volume 76.9 fL (78-100); Mean Corpuscular Hemoglobin 24.6 pg (26-32); Mean Corpuscular Hgb Concent. 31.9 g/dL (32-36); Mean Platelet Volume 10.8 fL (7.5-11.0); Monocyte (Absolute #) 0.37 x10^3/uL (0.0-1.3); Monocytes % 6.1 % (0.0-12.0); Neutrophil % 62.2 % (36.0-66.0); Platelet Count 262 x10^3/uL (150-450); Red Blood Count 5.29 x10^6/uL (4.1-5.4); Red Cell Distribution Width 13.5 % (11.5-14.0); White Blood Count 6.1 x10^3/uL (4.0-10.5)
[2023-03-22 19:33] LABS: INFLUENZA A NEGATIVE (NEGATIVE); INFLUENZA B NEGATIVE (NEGATIVE); RESPIRATORY SYNCTIAL VIRUS NEGATIVE (NEGATIVE); SARS-CoV-2 Xpert Express NEGATIVE (NEGATIVE)
[2023-03-22] MEDS ORDERED: PROTONIX 40 MG IV IV ONE ×2 (19:35→19:41)
[2023-03-22] MEDS ORDERED: Zofran 4 MG/2 ML VIAL IV ONE (19:36)
[2023-03-22 19:41] LABS: ALBUMIN 4.3 g/dL (3.5-5.0); ALKALINE PHOSPHATASE 84 U/L (38-126); ANION GAP 14.9 MEQ/L (5-15); BLOOD UREA NITROGEN 10 mg/dL (7-17); CHLORIDE 104 mmol/L (98-107); Calcium 9.2 mg/dL (8.4-10.2); Carbon Dioxide 25 mmol/L (22-30); Creatinine 1 0.74 mg/dL (0.52-1.04); EST GLOMERULAR FILTRATION RATE > 60.0 ML/MIN; Glucose 93 mg/dL (74-106); MAGNESIUM 2.1 mg/dL (1.6-2.3); NT PRO BNPII 33.7 pg/mL (<300); Potassium 3.1 mmol/L (3.5-5.1); SGOT/AST 45 U/L (14-36); SGPT/ALT 88 U/L (0-35); SODIUM 141 mmol/L (137-145); T4 (Thyroxine) 14.7 ug/dL (5.53-10.96); Total Protein 7.8 g/dL (6.3-8.2)
[2023-03-22] MEDS ORDERED: Zofran 4 MG/2 ML VIAL ONE (19:41)
[2023-03-22] MEDS ORDERED: TYLENOL EXTRA STRENGTH 500 MG PO STA (20:40)
[2023-03-22] MEDS ORDERED: Klor Con PO ONE ×2 (20:57→21:24)
[2023-03-22] MEDS ORDERED: Cyclobenzaprine 10 MG PO ONE (21:18)
[2023-03-22] MEDS ORDERED: TYLENOL EXTRA STRENGTH 500 MG ONE (21:23)
[2023-03-22] MEDS ORDERED: Cyclobenzaprine 10 MG ONE (21:23)
[2023-03-22] MEDS ORDERED: MORPHINE SULFATE 2 MG INJ IV ONE (23:14)
[2023-03-22] MEDS ORDERED: MORPHINE SULFATE 2 MG INJ ONE (23:17)
[2023-03-22] MEDS: DUONEB 0.5-3 MG/3 ml Neb IH SCH (23:57)
[2023-03-23] MEDS ORDERED: TYLENOL EXTRA STRENGTH 500 MG PO PRN (01:02)
[2023-03-23] MEDS ORDERED: solu-MEDROL ONE ×2 (01:15→05:28)
[2023-03-23] MEDS ORDERED: Sterile H2O 10 ml IJ ONE ×2 (01:15→05:28)
[2023-03-23] MEDS: solu-MEDROL 80 MG, Sterile H2O 10 ml 2 ML IV SCH ×4 (01:17→05:36)
[2023-03-23] MEDS: NEURONTIN PO SCH ×3 (01:17→21:16)
[2023-03-23] MEDS: Sodium Chloride 0.9% 1000 ML 1,000 ML IV SCH ×3 (01:20→16:01)
[2023-03-23] MEDS: DUONEB 0.5-3 MG/3 ml Neb IH SCH ×6 (03:00→22:20)
[2023-03-23 04:59] LABS: Hematocrit 36.8 % (35-47); Hemoglobin 11.7 g/dL (12.0-16.0); Mean Cell Volume 78.1 fL (78-100); Mean Corpuscular Hemoglobin 24.8 pg (26-32); Mean Corpuscular Hgb Concent. 31.8 g/dL (32-36); Mean Platelet Volume 10.8 fL (7.5-11.0); Platelet Count 235 x10^3/uL (150-450); Red Blood Count 4.71 x10^6/uL (4.1-5.4); Red Cell Distribution Width 13.5 % (11.5-14.0); White Blood Count 3.1 x10^3/uL (4.0-10.5)
[2023-03-23 05:31] LABS: ALBUMIN 3.8 g/dL (3.5-5.0); ALKALINE PHOSPHATASE 69 U/L (38-126); ANION GAP 15.9 MEQ/L (5-15); BLOOD UREA NITROGEN 8 mg/dL (7-17); CHLORIDE 107 mmol/L (98-107); Calcium 8.2 mg/dL (8.4-10.2); Carbon Dioxide 20 mmol/L (22-30); Creatinine 1 0.64 mg/dL (0.52-1.04); EST GLOMERULAR FILTRATION RATE > 60.0 ML/MIN; Glucose 207 mg/dL (74-106); Potassium 3.5 mmol/L (3.5-5.1); SGOT/AST 37 U/L (14-36); SGPT/ALT 69 U/L (0-35); SODIUM 140 mmol/L (137-145); Total Protein 6.9 g/dL (6.3-8.2)
[2023-03-23] MEDS ORDERED: TYLENOL EXTRA STRENGTH 500 MG ONE (06:50)
[2023-03-23] MEDS ORDERED: MEDICATION INTERVENTION MC SCH ×2 (07:45→09:45)
[2023-03-23] MEDS: Pepcid 20 MG VIAL IV SCH ×2 (08:03→21:16)
[2023-03-23] MEDS: SYNTHROID 100 MCG PO SCH (08:03)
--- NOTE | 2023-03-23 08:36 | XRAY ---
Indication: Short of breath. Elevated d-dimer. Multiple contiguous axial images obtained through the chest using 100 cc Isovue 370 contrast and PE protocol. Comparison: September 19, 2022 Adequate opacification of the pulmonary arteries. No pulmonary embolus. Heart is not enlarged again with left dual-lead pacemaker. Aorta remains normal in course and caliber. No pathologic mediastinal/hilar lymphadenopathy. Lungs demonstrate stable small right middle and tiny right lower lobe noncalcified benign nodules. No new pulmonary mass/nodule, infiltrate, effusion, or pneumothorax. Bony thorax intact. Limited upper abdomen again demonstrates fatty liver and cholecystectomy. Impression: 1. Continued negative pulmonary embolus. No new/acute cardiopulmonary abnormalities. 2. Stable benign right middle/right lower lobe noncalcified nodules and fatty liver.
--- NOTE | 2023-03-23 08:36 | XRAY ---
Indication: Cough. Short of breath. Comparison: September 19, 2022 Portable chest again demonstrates normal heart and lungs with left pacemaker. Bony thorax intact with minimal levoscoliosis. No new/acute findings.
[2023-03-23] MEDS ORDERED: PROVENTIL 2.5 MG/3 ML NEB IH PRN (09:03)
[2023-03-23 09:17] LABS: A-aADO2 6; ABG HEMOGLOBIN 12.2; ABG POTASSIUM 3.2 (3.5-5.1); ABG SITE RIGHT BRACHIAL; ARTERIAL BLOOD GAS BASE EXCESS -5.1 (-2.0-2.0); ARTERIAL BLOOD GAS FIO2 21 %; ARTERIAL BLOOD GAS PCO2 28 mmHg (35-45); ARTERIAL BLOOD GAS PO2 109 mmHg (75-100); ARTERIAL BLOOD GAS pH 7.42 (7.35-7.45); CARBOXYHEMOGLOBIN 1.2 % THgb (0.0-6.9); HCO3- 18.2 (22-28); HGB O2 SAT 97.7 g/dF (94-100); Methhemoglobin 1.1 % (1.4-1.5); paO2 pAO1 0.95
[2023-03-23] MEDS: ENOXAPARIN SODIUM SQ SCH (09:22)
[2023-03-23] MEDS: PATIENT OWN MEDICATION PO SCH (09:22)
[2023-03-23] MEDS ORDERED: NON-FORMULARY ITEM (Semaglutide [Ozempic] 0.25 MG/0.2 ML Pen.Injctr) SQ SCH (09:45)
[2023-03-23] MEDS ORDERED: AMOXIL 500 MG PO SCH (10:00)
[2023-03-23] MEDS ORDERED: LISDEXAMFETAMINE DIMESYLATE 50 MG PO SCH (10:00)
[2023-03-23] MEDS ORDERED: SYNTHROID 50 MCG PO SCH (10:00)
[2023-03-23] MEDS ORDERED: solu-MEDROL 80 MG, Sterile H2O 10 ml 2 ML IV SCH ×2 (12:00)
[2023-03-23] MEDS: DELTASONE 20 MG PO SCH (12:17)
[2023-03-23] MEDS: ROCEPHIN 1 Gm-D5w 50 ml Bag** 1 G/50 ML IVPB IV SCH (12:17)
[2023-03-23] MEDS: Cymbalta 30 MG Capsule PO SCH (14:18)
[2023-03-23] MEDS ORDERED: DESYREL 50 MG PO PRN (23:12)
[2023-03-24] MEDS: Sodium Chloride 0.9% 1000 ML 1,000 ML IV SCH (02:20)
[2023-03-24] MEDS: DUONEB 0.5-3 MG/3 ml Neb IH SCH ×4 (03:17→14:28)
[2023-03-24 04:44] LABS: Hematocrit 34.1 % (35-47); Hemoglobin 10.6 g/dL (12.0-16.0); Mean Cell Volume 78.6 fL (78-100); Mean Corpuscular Hemoglobin 24.4 pg (26-32); Mean Corpuscular Hgb Concent. 31.1 g/dL (32-36); Mean Platelet Volume 10.2 fL (7.5-11.0); Platelet Count 191 x10^3/uL (150-450); Red Blood Count 4.34 x10^6/uL (4.1-5.4); Red Cell Distribution Width 13.7 % (11.5-14.0); White Blood Count 5.4 x10^3/uL (4.0-10.5)
[2023-03-24 05:01] LABS: ANION GAP 11.1 MEQ/L (5-15); BLOOD UREA NITROGEN 6 mg/dL (7-17); CHLORIDE 110 mmol/L (98-107); Calcium 8.2 mg/dL (8.4-10.2); Carbon Dioxide 23 mmol/L (22-30); Creatinine 1 0.57 mg/dL (0.52-1.04); EST GLOMERULAR FILTRATION RATE > 60.0 ML/MIN; Glucose 157 mg/dL (74-106); Potassium 3.7 mmol/L (3.5-5.1); SODIUM 141 mmol/L (137-145)
[2023-03-24] MEDS ORDERED: DESYREL 50 MG PO PRN (06:49)
[2023-03-24] MEDS: SYNTHROID 100 MCG PO SCH (07:54)
[2023-03-24] MEDS: Cymbalta 30 MG Capsule PO SCH (07:54)
[2023-03-24] MEDS: DELTASONE 20 MG PO SCH (07:54)
[2023-03-24] MEDS: NEURONTIN PO SCH ×2 (07:54→21:18)
[2023-03-24] MEDS: PATIENT OWN MEDICATION PO SCH (07:55)
[2023-03-24] MEDS: Pepcid 20 MG VIAL IV SCH ×2 (07:56→21:18)
--- NOTE | 2023-03-24 08:55 | XRAY ---
Indication: Chest pain and short of breath. Comparison: March 22, 2023 Portable chest again demonstrates normal heart and lungs with left pacemaker. Bony thorax intact. No new/acute findings.
[2023-03-24 09:02] LABS: A-aADO2 -17; ABG HEMOGLOBIN 11.6; ARTERIAL BLD GAS O2 SATURATION 99.3 % (95-100); ARTERIAL BLOOD GAS FIO2 21 %; ARTERIAL BLOOD GAS PCO2 28 mmHg (35-45); ARTERIAL BLOOD GAS PO2 132 mmHg (75-100); ARTERIAL BLOOD GAS pH 7.44 (7.35-7.45); CARBOXYHEMOGLOBIN 0.7 % THgb (0.0-6.9); HGB O2 SAT 97.4 g/dF (94-100); Methhemoglobin 1.1 % (1.4-1.5); paO2 pAO1 1.15
[2023-03-24 09:03] LABS: ABG POTASSIUM 2.9 (3.5-5.1); ABG SITE RIGHT BRACHIAL; ALLEN TEST OK? YES
[2023-03-24] MEDS: ENOXAPARIN SODIUM SQ SCH (09:57)
[2023-03-24] MEDS: ROCEPHIN 1 Gm-D5w 50 ml Bag** 1 G/50 ML IVPB IV SCH (09:57)
[2023-03-24] MEDS ORDERED: PATIENT OWN MEDICATION SQ SCH (10:00)
[2023-03-24] MEDS ORDERED: Klor Con PO SCH (15:15)
[2023-03-24 15:37] LABS: ANION GAP 11.6 MEQ/L (5-15); BLOOD UREA NITROGEN 9 mg/dL (7-17); CHLORIDE 108 mmol/L (98-107); Calcium 8.2 mg/dL (8.4-10.2); Carbon Dioxide 23 mmol/L (22-30); Creatinine 1 0.61 mg/dL (0.52-1.04); EST GLOMERULAR FILTRATION RATE > 60.0 ML/MIN; Glucose 155 mg/dL (74-106); Potassium 3.8 mmol/L (3.5-5.1); SODIUM 139 mmol/L (137-145)
--- NOTE | 2023-03-24 16:25 | XRAY ---
Indication: Leg numbness. Multiple contiguous axial images obtained through the lumbar spine. Sagittal and coronal reformatted images obtained. Comparison: CT abdomen/pelvis June 14, 2022. Axial images negative for acute fracture, suspicious bony lesions, or spinal canal stenosis. Stable mild broad-based disc bulge at L5-S1 level. Facets are symmetric. Sagittal and coronal reformatted images demonstrates normal alignment with vertebral body heights/disc spaces maintained. No acute compression fracture or subluxation. Visualized noncontrasted soft tissues are unremarkable. Impression: Stable mild L5-S1 degenerative disc bulge. Remaining CT lumbar spine without contrast exam is again negative.
[2023-03-24] MEDS: BUSPAR 5 MG PO SCH ×2 (16:46→21:18)
[2023-03-24] MEDS: Klor Con PO SCH (16:46)
[2023-03-24] MEDS ORDERED: DUONEB 0.5-3 MG/3 ml Neb IH PRN (16:55)
[2023-03-24] MEDS ORDERED: NORCO 5/325 MG ONE (21:03)
[2023-03-24] MEDS ORDERED: NORCO 5/325 MG PO ONE (22:00)
[2023-03-25] MEDS ORDERED: NORCO 5/325 MG PO ONE (05:09)
[2023-03-25 05:15] LABS: Absolute Neutrophil Ct (ANC) 3.62 x10^3/uL (1.4-6.9); BASOPHIL % 0.2 % (0.0-0.4); Basophil (Absolute #) 0.01 x10^3/uL (0-0.4); Eosinophil (Absolute #) 0 x10^3/uL (0-0.5); Hematocrit 33.7 % (35-47); Hemoglobin 10.7 g/dL (12.0-16.0); IMMATURE GRAN # 0.07 x10^3u/L (0.00-0.03); IMMATURE GRAN % 1.3 % (0.00-0.4); Lymphocytes % 26.2 % (24.0-44.0); Mean Cell Volume 78.2 fL (78-100); Mean Corpuscular Hemoglobin 24.8 pg (26-32); Mean Corpuscular Hgb Concent. 31.8 g/dL (32-36); Mean Platelet Volume 10.3 fL (7.5-11.0); Monocyte (Absolute #) 0.24 x10^3/uL (0.0-1.3); Monocytes % 4.5 % (0.0-12.0); Neutrophil % 67.8 % (36.0-66.0); Platelet Count 197 x10^3/uL (150-450); Red Blood Count 4.31 x10^6/uL (4.1-5.4); Red Cell Distribution Width 13.9 % (11.5-14.0); White Blood Count 5.3 x10^3/uL (4.0-10.5)
[2023-03-25 05:44] LABS: ANION GAP 10.1 MEQ/L (5-15); BLOOD UREA NITROGEN 10 mg/dL (7-17); CHLORIDE 107 mmol/L (98-107); Calcium 8.3 mg/dL (8.4-10.2); Carbon Dioxide 24 mmol/L (22-30); Creatinine 1 0.59 mg/dL (0.52-1.04); EST GLOMERULAR FILTRATION RATE > 60.0 ML/MIN; Glucose 106 mg/dL (74-106); Potassium 3.5 mmol/L (3.5-5.1); SODIUM 138 mmol/L (137-145)
[2023-03-25 08:17] VITALS: BP 139/82
[2023-03-25] MEDS: ROCEPHIN 1 Gm-D5w 50 ml Bag** 1 G/50 ML IVPB IV SCH (08:54)
[2023-03-25 08:55] VITALS: PULSE 64; O2SAT 98
[2023-03-25] MEDS: Pepcid 20 MG VIAL IV SCH (08:55)
[2023-03-25] MEDS: Cymbalta 30 MG Capsule PO SCH (08:55)
[2023-03-25] MEDS: BUSPAR 5 MG PO SCH (08:55)
[2023-03-25] MEDS: ENOXAPARIN SODIUM SQ SCH (08:55)
[2023-03-25] MEDS: Klor Con PO SCH (08:56)
[2023-03-25] MEDS: NEURONTIN PO SCH (08:56)
[2023-03-25] MEDS: PATIENT OWN MEDICATION PO SCH (08:56)
[2023-03-25] MEDS: SYNTHROID 100 MCG PO SCH (08:57)
[2023-03-25] MEDS ORDERED: Klor Con PO SCH (10:00)
[2023-03-25] MEDS ORDERED: DELTASONE 20 MG PO SCH (10:00)
== END 2023-03-25 11:20 | disposition home or self-care (01) ==
LOC: ED 18:13 → MED SURG 23:36
PROVIDERS: ADMIT Family Medicine; ATTEND Family Medicine
DX: J45.901 Unspecified asthma with (acute) exacerbation (principal); E87.6 Hypokalemia; F41.9 Anxiety disorder, unspecified; R79.89 Other specified abnormal findings of blood chemistry; Z79.899 Other long term (current) drug therapy; Z20.828 Contact with and (suspected) exposure to other viral communicable diseases
CPT/HCPCS: 0241U; 36000; 36415; 36600; 71045; 71260; 72131; 80048; 80053; 82375; 82803; 83605; 83735; 83880; 84436; 84443; 84484; 85025; 85027; 85379; 85652; 86140; 87040; 93005; 94640; 94660; 94760; 96374; 96375; 99284; G0378; J0696; J1650; J2270; J2405; J2920; J2930; A9270-GY

== ENCOUNTER 2023-06-30 12:01 | Emergency (ER) | payer OTHER ==
--- NOTE | 2023-06-30 12:06 | ERPHSYRPT ---
- History of Present Illness Time Seen by Provider: 06/30/23 12:06 Source: patient Exam Limitations: no limitations Physician History: This is a morbidly obese 32-year-old white female patient Dr. Sanchez who presents with 2 to 3-day history of headache and shortness of breath that began yesterday. Patient has a history of a "immune disorder" and when she gets infections and increasing short of breath, she states the immune system flares up. Patient also complains of some mild anterior chest pain without radiation. She attends college and there has been an uptick of COVID exposure and infections. Her room air oxygen saturation level is 99 to 100%. Her vital si gns are stable. She is afebrile. Patient has a history of asthma, sick sinus syndrome (pacemaker), obstructive sleep apnea, Luis's disease, fibromyalgia, hypothyroidism, ADD, anxiety/depression issues. Timing/Duration: day(s) (3) Activities at Onset: none Severity of Dyspnea-Max: mild (To moderate) Severity of Dyspnea-Current: mild (To moderate) Possible Cause: occasional episodes Modifying Factors: Improves With: exertion Associated Symptoms: chest pain/discomfort (Mild anterior), No wheezing, No calf pain, No dizziness Allergies/Adverse Reactions: ketorolac [From Toradol] Allergy (Severe, Verified 09/01/22 11:52) Hives latex Allergy (Severe, Verified 09/01/22 11:52) STOPPED BREATHING prochlorperazine [From Compazine] Allergy (Severe, Verified 09/01/22 11:52) Hives and shakes Influenza Virus Vaccines Allergy (Mild, Verified 09/01/22 11:52) headache vomiting levothyroxine sodium [From Synthroid] Allergy (Mild, Verified 09/01/22 11:52) Migranes methylphenidate [From Ritalin] Allergy (Verified 09/01/22 11:52) migranes aspirin Adverse Reaction (Mild, Verified 09/01/22 11:52) Vomiting medidate Adverse Reaction (Mild, Uncoded 09/01/22 11:52) VOMTIING Home Medications: Omeprazole 20 mg PO DAILY PRN 11/18/21 [History] Albuterol Common Canister [Ventolin Common Canister] 2 puff IH Q4H PRN 09/01/22 [History] Lisdexamfetamine Dimesylate [Vyvanse] 50 mg PO DAILY 09/01/22 [History] Ipratropium/Albuterol Sulfate [Combivent Respimat Inhal [place]] 4 gm IH DAILY PRN PRN 09/19/22 [History] Gabapentin [Neurontin] 600 mg PO BID 03/22/23 [History] Levothyroxine Sodium 50 Mcg [Synthroid 50 Mcg] 100 mcg PO DAILY 03/22/23 [History] Semaglutide [Ozempic] 0.25 mg SQ WEEKLY 03/22/23 [History] Hx Tetanus, Diphtheria Vaccination/Date Given: Yes Hx Influenza Vaccination/Date Given: No Hx Pneumococcal Vaccination/Date Given: No Travel Risk - International Travel Have you traveled outside of the country in past 3 weeks: No - Coronavirus Screening Are you exhibiting any of the following symptoms?: Yes Symptoms: Shortness of Breath, Headaches/Body Aches/Fatigue Close contact with a COVID-19 positive Pt in past 14-21 Days: No - Vaccine Status Have you recieved a Covid-19 vaccination: No - Review of Systems Constitutional: No Symptoms Eyes: No Symptoms Ears, Nose, & Throat: No Symptoms Respiratory: Dyspnea, Dyspnea on Exertion (STAPLES) Cardiac: Chest Pain Abdominal/Gastrointestinal: No Symptoms Genitourinary Symptoms: No Symptoms Musculoskeletal: Arthralgias, Myalgias Skin: No Symptoms Neurological: Headache Psychological: No Symptoms Endocrine: No Symptoms Hematologic/Lymphatic: No Symptoms Immunological/Allergic: No Symptoms All Other Systems: Reviewed and Negative - Past Medical History Pertinent Past Medical History: Yes Neurological History: No Pertinent History ENT History: No Pertinent History Cardiac History: Other Respiratory History: Asthma, Bronchitis, Pneumonia Endocrine Medical History: No Pertinent History, Hypothyroidism Musculoskeletal History: Fibromyalgia GI Medical History: Gallbladder Disease History: No Pertinent History Psycho-Social History: Attention Deficit Disorder, Other Female Reproductive Disorders: Endometriosis Other Medical History: Pacemaker 2nd Sick sinus syndrome; bradycardia. MDD. Insulin Resistant. - Past Surgical History Past Surgical History: Yes Neuro Surgical History: No Pertinent History Cardiac: Pacemaker Respiratory: No Pertinent History Gastrointestinal: Cholecystectomy Genitourinary: No Pertinent History Musculoskeletal: No Pertinent History Female Surgical History: Hysterectomy Other Surgical History: c section x3, left oopherectomy and tubal removal,. Loop crowell device (removed) - Social History Smoking Status: Former smoker How long have you smoked: 8 years Exposure to second hand smoke: No Drug Use: none Patient Lives Alone: No Significant Family History: no pertinent family hx, cancer (colon/breast), diabetes, other (Gall bladder disease) - Nursing Vital Signs Nursing Vital Signs: Initial Vital Signs Pulse Rate 60 06/30/23 12:00 Respiratory Rate 37 H 06/30/23 12:00 Blood Pressure 138/81 06/30/23 12:00 O2 Sat by Pulse Oximetry 97 06/30/23 12:00 Pain Scale Pain Intensity 8 - Physical Exam General Appearance: no apparent distress, alert, anxiety, obese Eye Exam: PERRL/EOMI, eyes nml inspection Ears, Nose, Throat Exam: hearing grossly normal, normal ENT inspection, normal pharynx Neck Exam: normal inspection, non-tender, supple, full range of motion Respiratory Exam: normal breath sounds, chest tenderness, lungs clear, airway intact, No respiratory distress Cardiovascular/Chest Exam: normal heart sounds, regular rate/rhythm Abdominal/Gastrointestinal Exam: soft, normal bowel sounds, No tenderness Rectal Exam: not done Extremity Exam: non-tender Neurologic Exam: alert, oriented x 3, cooperative, type soldering machine tender II-XII nml as tested, nml cerebellar function, nml station & gait, sensation nml Skin Exam: normal color, warm, dry Lymphatic Exam: No adenopathy SpO2 Interpretation: normal O2 Delivery: Room Air - Course Nursing assessment & vital signs reviewed: Yes Ordered Tests: Active Orders 24 hr Category Date Time Status EKG-ER Only STAT Care 06/30/23 12:13 Active IV Insertion STAT Care 06/30/23 12:13 Active Pulse Oximetry (ED) STAT Care 06/30/23 12:13 Active CHEST 1 VIEW (PORTABLE) Stat Exams 06/30/23 12:13 Completed BLOOD CULTURE Stat Lab 06/30/23 12:46 Received CBC W DIFF Stat Lab 06/30/23 12:30 Completed CMP Stat Lab 06/30/23 12:30 Completed CULTURE,URINE Stat Lab 06/30/23 12:54 Received MONO SCREEN Stat Lab 06/30/23 12:30 Completed NT PRO BNPII Stat Lab 06/30/23 12:30 Completed TROPONIN Q4H Lab 06/30/23 12:30 Completed TROPONIN Q4H Lab 06/30/23 16:15 Ordered TROPONIN Q4H Lab 06/30/23 20:15 Ordered UA W/RFX UR CULTURE Stat Lab 06/30/23 12:54 Completed Medication Summary Discontinued Medications Generic Name Dose Route Start Last Admin Trade Name Alis PRN Reason Stop Dose Admin Ceftriaxone Sodium/Dextrose 1 g in 50 mls @ 100 mls/hr 06/30/23 13:24 06/30/23 13:38 Rocephin 1 Gm-D5w 50 Ml Bag IV 06/30/23 13:53 100 mls/hr STAT STA 100 mls/hr Administration Ceftriaxone Sodium/Dextrose Confirm 06/30/23 13:37 Rocephin 1 Gm-D5w 50 Ml Bag Administered 06/30/23 13:38 Dose 1 g in 50 mls @ ud IV .STK-MED ONE Morphine Sulfate 4 mg 06/30/23 13:46 06/30/23 14:00 Morphine Sulfate 4 Mg/Ml Injection IV 06/30/23 13:47 4 mg STAT ONE Administration Morphine Sulfate Confirm 06/30/23 13:58 Morphine Sulfate 4 Mg/Ml Injection Administered 06/30/23 13:59 Dose 4 mg .ROUTE .STK-MED ONE Ondansetron HCl 4 mg 06/30/23 13:46 06/30/23 14:00 Ondansetron Hcl 4 Mg/2 Ml Vial IV 06/30/23 13:47 4 mg STAT ONE Administration Ondansetron HCl Confirm 06/30/23 13:57 Ondansetron Hcl 4 Mg/2 Ml Vial Administered 06/30/23 13:58 Dose 4 mg .ROUTE .STK-MED ONE Lab/Rad Data: Laboratory Result Diagrams 06/30/23 12:30 06/30/23 12:30 Laboratory Results 06/30/23 06/30/23 06/30/23 Range/Units 12:54 12:47 12:30 WBC (4.0-10.5) x10^3/uL RBC (4.1-5.4) x10^6/uL Hgb (12.0-16.0) g/dL Hct (35-47) % MCV (78-100) fL MCH (26-32) pg MCHC (32-36) g/dL RDW (11.5-14.0) % Plt Count (150-450) x10^3/uL MPV (7.5-11.0) fL Gran % (36.0-66.0) % Immature Gran % (Auto) (0.00-0.4) % Nucleat RBC Rel Count (0.00-0.1) % Eos # (Auto) (0-0.5) x10^3/uL Immature Gran # (Auto) (0.00-0.03) x10^3u/L Absolute Lymphs (auto) (1.0-4.6) x10^3/uL Absolute Monos (auto) (0.0-1.3) x10^3/uL Absolute Nucleated RBC (0.00-0.01) x10^3u/L Lymphocytes % (24.0-44.0) % Monocytes % (0.0-12.0) % Eosinophils % (0.00-5.0) % Basophils % (0.0-0.4) % Absolute Granulocytes (1.4-6.9) x10^3/uL Basophils # (0-0.4) x10^3/uL Sodium (137-145) mmol/L Potassium (3.5-5.1) mmol/L Chloride (98-107) mmol/L Carbon Dioxide (22-30) mmol/L Anion Gap (5-15) MEQ/L BUN (7-17) mg/dL Creatinine (0.52-1.04) mg/dL Estimated GFR ML/MIN Glucose (74-106) mg/dL Calcium (8.4-10.2) mg/dL Total Bilirubin (0.2-1.3) mg/dL AST (14-36) U/L ALT (0-35) U/L Alkaline Phosphatase (38-126) U/L Troponin I (0.000-0.034) ng/mL NT-Pro-B Natriuret Pep (<300) pg/mL Serum Total Protein (6.3-8.2) g/dL Albumin (3.5-5.0) g/dL Urine Color Dark Yellow A (Yellow) Urine Appearance Cloudy A (Clear) Urine pH 6.0 (4.6-8.0) Ur Specific [place] >=1.030 A (1.005-1.030) Urine Protein Trace A (Negative) Urine Glucose (UA) Negative (Negative) mg/dL Urine Ketones Trace A (Negative) Urine Blood Negative (Negative) Urine Nitrite Negative (Negative) Urine Bilirubin Negative (Negative) Urine Urobilinogen 1.0 A (0.2) mg/dL Ur Leukocyte Esterase Small A (Negative) U Hyaline Cast (Auto) 3-5 A (0-2) /LPF Urine Microscopic RBC 0-2 (0-5) /HPF Urine Microscopic WBC 3-5 (0-5) /HPF Ur Epithelial Cells Moderate A (None Seen) /HPF Urine Bacteria None Seen (None Seen) /HPF Urine Yeast (Budding) (None Seen) /HPF Urine Culture Reflexed YES (NO) Monoscreen NEGATIVE (NEGATIVE) Influenza Type A Ag NEGATIVE (NEGATIVE) Influenza Type B Ag NEGATIVE (NEGATIVE) RSV (PCR) NEGATIVE (NEGATIVE) SARS-CoV-2 (PCR) NEGATIVE (NEGATIVE) 06/30/23 06/30/23 06/30/23 Range/Units 12:30 12:30 12:30 WBC 5.4 (4.0-10.5) x10^3/uL RBC 5.28 (4.1-5.4) x10^6/uL Hgb 13.5 (12.0-16.0) g/dL Hct 41.8 (35-47) % MCV 79.2 (78-100) fL MCH 25.6 L (26-32) pg MCHC 32.3 (32-36) g/dL RDW 12.9 (11.5-14.0) % Plt Count 240 (150-450) x10^3/uL MPV 10.0 (7.5-11.0) fL Gran % 65.4 (36.0-66.0) % Immature Gran % (Auto) 0.2 (0.00-0.4) % Nucleat RBC Rel Count 0.0 (0.00-0.1) % Eos # (Auto) 0.09 (0-0.5) x10^3/uL Immature Gran # (Auto) 0.01 (0.00-0.03) x10^3u/L Absolute Lymphs (auto) 1.51 (1.0-4.6) x10^3/uL Absolute Monos (auto) 0.24 (0.0-1.3) x10^3/uL Absolute Nucleated RBC 0.00 (0.00-0.01) x10^3u/L Lymphocytes % 27.9 (24.0-44.0) % Monocytes % 4.4 (0.0-12.0) % Eosinophils % 1.7 (0.00-5.0) % Basophils % 0.4 (0.0-0.4) % Absolute Granulocytes 3.55 (1.4-6.9) x10^3/uL Basophils # 0.02 (0-0.4) x10^3/uL Sodium 138 (137-145) mmol/L Potassium 3.4 L (3.5-5.1) mmol/L Chloride 104 (98-107) mmol/L Carbon Dioxide 24 (22-30) mmol/L Anion Gap 13.0 (5-15) MEQ/L BUN 10 (7-17) mg/dL Creatinine 0.74 (0.52-1.04) mg/dL Estimated GFR > 60.0 ML/MIN Glucose 91 (74-106) mg/dL Calcium 9.0 (8.4-10.2) mg/dL Total Bilirubin 0.60 (0.2-1.3) mg/dL AST 35 (14-36) U/L ALT 34 (0-35) U/L Alkaline Phosphatase 71 (38-126) U/L Troponin I < 0.012 (0.000-0.034) ng/mL NT-Pro-B Natriuret Pep < 20.0 (<300) pg/mL Serum Total Protein 7.3 (6.3-8.2) g/dL Albumin 4.4 (3.5-5.0) g/dL Urine Color (Yellow) Urine Appearance (Clear) Urine pH (4.6-8.0) Ur Specific [place] (1.005-1.030) Urine Protein (Negative) Urine Glucose (UA) (Negative) mg/dL Urine Ketones (Negative) Urine Blood (Negative) Urine Nitrite (Negative) Urine Bilirubin (Negative) Urine Urobilinogen (0.2) mg/dL Ur Leukocyte Esterase (Negative) U Hyaline Cast (Auto) (0-2) /LPF Urine Microscopic RBC (0-5) /HPF Urine Microscopic WBC (0-5) /HPF Ur Epithelial Cells (None Seen) /HPF Urine Bacteria (None Seen) /HPF Urine Yeast (Budding) (None Seen) /HPF Urine Culture Reflexed (NO) Monoscreen (NEGATIVE) Influenza Type A Ag (NEGATIVE) Influenza Type B Ag (NEGATIVE) RSV (PCR) (NEGATIVE) SARS-CoV-2 (PCR) (NEGATIVE) - Progress Progress: improved, re-examined Air Movement: good Progress Note: 06/30/23 13:25 This patient's medical issue is 1 of moderate complexity. Level complexity in the work-up performed is based on review of the patient's past medical history, review of the patient's medication list, review of the patient's drug allergy list, history of present illness and physical findings on examination. This patient is to undergo intravenous line placement, CBC, CMP, twelve-lead EKG, troponin level, chest x-ray COVID/RSV/influenza a/B, group A strep and mono test. Chest x-ray was interpreted by the radiologist and I reviewed the impression. This patient has no evidence of acute cardiopulmonary process. Review of the labs does show urinary tract infection. We are awaiting the viral studies as well as the group A strep. Monotest is negative. Blood Culture(s) Obtained: Yes Antibiotics given: Yes Counseled pt/family regarding: lab results, diagnosis, need for follow-up, rad results Medical Desision Making - Diagnostic Testing Diagnostic test were ordered, analyzed, and reviewed by me: Yes Radiological Interpretation: Reviewed by me, Teleradiologist Report - Risk of complications The pt has a mod risk of morbidity or mortality based on: Need for prescription drug management - Departure Departure Disposition: Home Clinical Impression: UTI (urinary tract infection) Condition: Stable Critical Care Time: No Referrals: TIMA SANCHEZ MD [Primary Care Provider] - Follow up/PCP as directed Additional Instructions: Drink plenty of fluids. Take your medication as prescribed. Follow-up with your primary care provider for further evaluation management. Prescriptions: Ciprofloxacin [Cipro 500 MG] 500 mg PO BID #14 tablet
[2023-06-30 12:07] VITALS: TEMP 97.9
--- NOTE | 2023-06-30 12:28 | XRAY ---
Indication: Short of breath. Comparison: March 24, 2023 Portable chest again demonstrates normal heart and lungs with incidental left pacemaker. Bony thorax intact. No new/acute findings.
[2023-06-30 12:45] LABS: Absolute Neutrophil Ct (ANC) 3.55 x10^3/uL (1.4-6.9); BASOPHIL % 0.4 % (0.0-0.4); Basophil (Absolute #) 0.02 x10^3/uL (0-0.4); Eosinophil % 1.7 % (0.00-5.0); Eosinophil (Absolute #) 0.09 x10^3/uL (0-0.5); Hematocrit 41.8 % (35-47); Hemoglobin 13.5 g/dL (12.0-16.0); IMMATURE GRAN # 0.01 x10^3u/L (0.00-0.03); IMMATURE GRAN % 0.2 % (0.00-0.4); Lymphocyte (Absolute #) 1.51 x10^3/uL (1.0-4.6); Lymphocytes % 27.9 % (24.0-44.0); Mean Cell Volume 79.2 fL (78-100); Mean Corpuscular Hemoglobin 25.6 pg (26-32); Mean Corpuscular Hgb Concent. 32.3 g/dL (32-36); Monocyte (Absolute #) 0.24 x10^3/uL (0.0-1.3); Monocytes % 4.4 % (0.0-12.0); Neutrophil % 65.4 % (36.0-66.0); Platelet Count 240 x10^3/uL (150-450); Red Blood Count 5.28 x10^6/uL (4.1-5.4); Red Cell Distribution Width 12.9 % (11.5-14.0); White Blood Count 5.4 x10^3/uL (4.0-10.5)
[2023-06-30 12:55] LABS: ALBUMIN 4.4 g/dL (3.5-5.0); ALKALINE PHOSPHATASE 71 U/L (38-126); BLOOD UREA NITROGEN 10 mg/dL (7-17); CHLORIDE 104 mmol/L (98-107); Carbon Dioxide 24 mmol/L (22-30); Creatinine 1 0.74 mg/dL (0.52-1.04); EST GLOMERULAR FILTRATION RATE > 60.0 ML/MIN; Glucose 91 mg/dL (74-106); Potassium 3.4 mmol/L (3.5-5.1); SGOT/AST 35 U/L (14-36); SGPT/ALT 34 U/L (0-35); SODIUM 138 mmol/L (137-145); Total Protein 7.3 g/dL (6.3-8.2)
[2023-06-30 13:14] LABS: NT PRO BNPII < 20.0 pg/mL (<300); TROPONIN < 0.012 ng/mL (0.000-0.034)
[2023-06-30 13:17] LABS: ADD URINE CULTURE? YES (NO); Appearance Cloudy (Clear); Bacteria None Seen /HPF (None Seen); Bilirubin Negative (Negative); Blood Negative (Negative); Epithelial Cells Moderate /HPF (None Seen); Glucose, Urine Negative (Negative); Ketones Trace (Negative); Leukocyte Esterase Small (Negative); Nitrite Negative (Negative); Protein,Urine Dip Trace (Negative); RBC 0-2 /HPF (0-5); Specific Gravity >=1.030 (1.005-1.030)
[2023-06-30] MEDS ORDERED: ROCEPHIN 1 Gm-D5w 50 ml Bag** 1 G/50 ML IVPB IV STA (13:24)
[2023-06-30 13:32] LABS: INFLUENZA A NEGATIVE (NEGATIVE); INFLUENZA B NEGATIVE (NEGATIVE); RESPIRATORY SYNCTIAL VIRUS NEGATIVE (NEGATIVE); SARS-CoV-2 Xpert Express NEGATIVE (NEGATIVE)
[2023-06-30] MEDS ORDERED: ROCEPHIN 1 Gm-D5w 50 ml Bag** 1 G/50 ML IVPB IV ONE (13:37)
[2023-06-30] MEDS ORDERED: Zofran 4 MG/2 ML VIAL IV ONE ×2 (13:46→15:07)
[2023-06-30] MEDS ORDERED: MORPHINE SULFATE 4 MG INJ IV ONE (13:46)
[2023-06-30] MEDS ORDERED: Zofran 4 MG/2 ML VIAL ONE ×2 (13:57→15:02)
[2023-06-30] MEDS ORDERED: MORPHINE SULFATE 4 MG INJ ONE (13:58)
[2023-06-30] MEDS ORDERED: PYRIDIUM 200 MG PO ONE (14:16)
[2023-06-30] MEDS ORDERED: solu-MEDROL 125 MG, Sterile H2O 10 ml 2 ML IV ONE ×2 (14:16)
[2023-06-30] MEDS ORDERED: Sterile H2O 10 ml IJ ONE (14:23)
[2023-06-30] MEDS ORDERED: PYRIDIUM 200 MG ONE (14:23)
[2023-06-30] MEDS ORDERED: solu-MEDROL ONE (14:23)
[2023-06-30 15:16] VITALS: BP 138/74; PULSE 78; RESP 18; O2SAT 97
[2023-06-30 16:40] LABS: CHLAMYDIA DNA NOT DETECTED (NEGATIVE); GC DNA Probe NOT DETECTED (NEGATIVE)
== END 2023-06-30 15:26 | disposition home or self-care (01) ==
LOC: ED 12:01
DX: N39.0 Urinary tract infection, site not specified (principal); R51.9 Headache, unspecified; R06.02 Shortness of breath; R07.9 Chest pain, unspecified; Z79.52 Long term (current) use of systemic steroids; Z79.85 Long-term (current) use of injectable non-insulin antidiabetic drugs; Z79.899 Other long term (current) drug therapy; Z28.310 Unvaccinated for COVID-19
CPT/HCPCS: 0241U; 36000; 36415; 71045; 80053; 81001; 83880; 84484; 85025; 86308; 87040; 87070; 87086; 87491; 87591; 93005; 94760; 96365; 96367; 96374; 96375; 99284; J0696; J2270; J2405; J2930; A9270-GY

== ENCOUNTER 2023-10-07 17:13 | Emergency (ER) | payer OTHER ==
[2023-10-07 18:04] VITALS: BP 116/69; PULSE 60; RESP 17; TEMP 97.6; O2SAT 98
[2023-10-07] MEDS ORDERED: NORCO 10-325 MG PO STA (18:31)
[2023-10-07] MEDS ORDERED: NORCO 10-325 MG ONE (18:33)
--- NOTE | 2023-10-07 18:39 | ERPHSYRPT ---
- History of Present Illness Time Seen by Provider: 10/07/23 17:17 Source: patient Exam Limitations: no limitations Patient Subjective Stated Complaint: C/O Right forearm pain. Denies injury. States pain is "in the tendons and ligaments" because it's a burning sensation. Pain started at around 12:30pm today when attempting to open a truck door. Triage Nursing Assessment: Patient ambulated back to ER without difficulties. She is alert and oriented. ROM to RUE WNL. Radial pulse present. No skin abnormalities noted to area of pain. Physician History: 33 years old female presented in the ER with chief complaint of right forearm pain since noon when she tried to get into the truck and tried to pull her whole body with right hand on the handle. Patient denies feeling any popping/snapping sensation. Complaining of burning pain moderate to severe, aggravated with palpation in the forearm muscles and also flexion of fingers/making a fist. No numbness or tingling in the fingertips. No pain in the elbow/arm. Allergies/Adverse Reactions: ketorolac [From Toradol] Allergy (Severe, Verified 10/07/23 17:42) Hives latex Allergy (Severe, Verified 10/07/23 17:42) STOPPED BREATHING prochlorperazine [From Compazine] Allergy (Severe, Verified 10/07/23 17:42) Hives and shakes Influenza Virus Vaccines Allergy (Mild, Verified 10/07/23 17:42) headache vomiting levothyroxine sodium [From Synthroid] Allergy (Mild, Verified 10/07/23 17:42) Migranes methylphenidate [From Ritalin] Allergy (Verified 10/07/23 17:42) migranes metoclopramide [From Reglan] Allergy (Verified 10/07/23 17:42) aspirin Adverse Reaction (Mild, Verified 10/07/23 17:42) Vomiting medidate Adverse Reaction (Mild, Uncoded 10/07/23 17:42) VOMTIING Home Medications: Albuterol Common Canister [Ventolin Common Canister] 2 puff IH Q4H PRN 09/01/22 [History] Ipratropium/Albuterol Sulfate [Combivent Respimat Inhal [place]] 4 gm IH DAILY PRN PRN 09/19/22 [History] Levothyroxine Sodium 50 Mcg [Synthroid 50 Mcg] 100 mcg PO DAILY 03/22/23 [History] Semaglutide [Ozempic] 2 mg SQ WEEKLY 03/22/23 [History] Famotidine 20 mg [Pepcid 20 MG] 1 tab PO DAILY 10/07/23 [History] Pregabalin 50 mg [Lyrica 50MG] 2 cap PO DAILY 10/07/23 [History] Hx Tetanus, Diphtheria Vaccination/Date Given: Yes Hx Influenza Vaccination/Date Given: No Hx Pneumococcal Vaccination/Date Given: No Immunizations Up to Date: Yes Travel Risk - International Travel Have you traveled outside of the country in past 3 weeks: No - Coronavirus Screening Are you exhibiting any of the following symptoms?: No Close contact with a COVID-19 positive Pt in past 14-21 Days: No - Vaccine Status Have you recieved a Covid-19 vaccination: No - Review of Systems Constitutional: No Symptoms Ears, Nose, & Throat: No Symptoms Respiratory: No Symptoms Cardiac: No Symptoms Abdominal/Gastrointestinal: No Symptoms Musculoskeletal: Myalgias Skin: No Symptoms Neurological: No Symptoms Hematologic/Lymphatic: No Symptoms - Past Medical History Pertinent Past Medical History: Yes Neurological History: Migraines, Other ENT History: No Pertinent History Cardiac History: Other Respiratory History: Asthma, Sleep Apnea Endocrine Medical History: Hypothyroidism, Other Musculoskeletal History: Fibromyalgia, Fractures, Osteoarthritis GI Medical History: Gallbladder Disease History: No Pertinent History Psycho-Social History: Attention Deficit Disorder, Depression, Other Female Reproductive Disorders: Endometriosis Other Medical History: ADHD, Insulin Resistance, Hoshimoto's Disease, sleeps with CPAP - Past Surgical History Past Surgical History: Yes Neuro Surgical History: No Pertinent History Cardiac: Pacemaker Respiratory: No Pertinent History Gastrointestinal: Cholecystectomy Genitourinary: No Pertinent History Musculoskeletal: No Pertinent History Female Surgical History: Hysterectomy Other Surgical History: c section x3, left oopherectomy and tubal removal,. Loop crowell device (removed) - Social History Smoking Status: Former smoker How long have you smoked: 8 years Exposure to second hand smoke: No Drug Use: other Patient Lives Alone: No Significant Family History: no pertinent family hx, cancer (colon/breast), diabetes, other (Gall bladder disease) - Female History Hx Now: No - Nursing Vital Signs Nursing Vital Signs: Initial Vital Signs Temperature 97.6 F 10/07/23 17:52 Pulse Rate 60 10/07/23 17:52 Respiratory Rate 17 10/07/23 17:52 Blood Pressure 116/69 10/07/23 17:52 O2 Sat by Pulse Oximetry 98 10/07/23 17:52 Pain Scale Pain Intensity 4 - Physical Exam General Appearance: no apparent distress Neck Exam: normal inspection, full range of motion Cardiovascular/Respiratory Exam: normal breath sounds, regular rate/rhythm Shoulder Exam: normal inspection, non-tender, no evidence of injury, normal ROM Elbow/Forearm Exam: normal inspection, no evidence of injury, normal ROM, soft tissue tenderness (Right proximal volar aspect of forearm. No obvious swelling.), No bone tenderness Wrist Exam: normal inspection, non-tender, no evidence of injury, normal ROM Hand Exam: normal inspection, no evidence of injury Neuro/Tendon Exam: normal sensation Mental Status Exam: alert, oriented x 3, cooperative Skin Exam: normal color SpO2 Interpretation: normal SpO2: 98 O2 Delivery: Room Air Ordered Tests: Medication Summary Discontinued Medications Generic Name Dose Route Start Last Admin Trade Name Alis PRN Reason Stop Dose Admin Hydrocodone Bitart/Acetaminophen 1 tablet 10/07/23 18:31 Hydrocodone/Acetamin 10-325 Mg Tablet PO 10/07/23 18:32 ONCE STA - Progress Progress: improved Progress Note: 10/07/23 19:16 33 years old female presented in the ER with chief complaint of right forearm pain since noon when she tried to get into the truck and tried to pull her whole body with right hand on the handle. Patient denies feeling any popping/snapping sensation. Complaining of burning pain moderate to severe, aggravated with palpation in the forearm muscles and also flexion of fingers/making a fist. No numbness or tingling in the fingertips. No pain in the elbow/arm. She is offered x-rays which she declined. She does not have any bony tenderness, I think it is reasonable. She is given symptomatic treatment with [place] here and couple of pills to go home and recommended continue with Lyrica and Tylenol/Flexeril and outpatient orthopedics follow-up. I believe patient has ligament strain/muscle strain, unsure about rupture. Will put her in sling. Discussed signs symptoms of worsening needing return to ER which she seems understanding. Stable for discharge. Counseled pt/family regarding: diagnosis, need for follow-up Medical Desision Making - Diagnostic Testing Diagnostic test were ordered, analyzed, and reviewed by me: No - Departure Departure Disposition: Home Clinical Impression: Strain of forearm, right Condition: Stable Critical Care Time: No Referrals: TIMA SANCHEZ MD [Primary Care Provider] - Follow up with PCP 1 day ELISEO - RUBEN SANTOS NP [NON-STAFF PHY W/O PRIVILEGES] - Follow up/PCP as directed (Tomorrow for reevaluation) Instructions: Muscle Strain (DC) Additional Instructions: Take Tylenol/Flexeril as needed. Follow-up with primary care/orthopedics for reevaluation in the morning. Return to ER for any worsening. Prescriptions: Cyclobenzaprine HCl 10 mg [Flexeril 10 MG] 10 mg PO TID #15 tablet
[2023-10-07] MEDS ORDERED: NORCO 5/325 MG PO ONE (19:09)
[2023-10-07] MEDS ORDERED: NORCO 5/325 MG ONE (19:18)
== END 2023-10-07 19:29 | disposition home or self-care (01) ==
LOC: ED 17:13
DX: S56.911A Strain of unspecified muscles, fascia and tendons at forearm level, right arm, initial encounter (principal); X50.0XXA Overexertion from strenuous movement or load, initial encounter; Z79.85 Long-term (current) use of injectable non-insulin antidiabetic drugs; Z79.899 Other long term (current) drug therapy; Z28.310 Unvaccinated for COVID-19
CPT/HCPCS: 99282; A9270-GY

== ENCOUNTER 2023-12-26 15:29 | Emergency (ER) | payer OTHER ==
[2023-12-26 15:56] VITALS: TEMP 98.5
[2023-12-26 16:28] LABS: Absolute Neutrophil Ct (ANC) 3.81 x10^3/uL (1.4-6.9); BASOPHIL % 0.4 % (0.0-0.4); Basophil (Absolute #) 0.02 x10^3/uL (0-0.4); Eosinophil % 1.3 % (0.00-5.0); Eosinophil (Absolute #) 0.07 x10^3/uL (0-0.5); Hemoglobin 13.3 g/dL (12.0-16.0); IMMATURE GRAN # 0.01 x10^3u/L (0.00-0.03); IMMATURE GRAN % 0.2 % (0.00-0.4); Lymphocyte (Absolute #) 1.29 x10^3/uL (1.0-4.6); Lymphocytes % 23.7 % (24.0-44.0); Mean Cell Volume 82.2 fL (78-100); Mean Corpuscular Hemoglobin 26.7 pg (26-32); Mean Corpuscular Hgb Concent. 32.4 g/dL (32-36); Mean Platelet Volume 10.4 fL (7.5-11.0); Monocyte (Absolute #) 0.25 x10^3/uL (0.0-1.3); Monocytes % 4.6 % (0.0-12.0); Neutrophil % 69.8 % (36.0-66.0); Platelet Count 237 x10^3/uL (150-450); Red Blood Count 4.99 x10^6/uL (4.1-5.4); Red Cell Distribution Width 12.7 % (11.5-14.0); White Blood Count 5.5 x10^3/uL (4.0-10.5)
[2023-12-26 16:34] LABS: ALBUMIN 3.9 g/dL (3.5-5.0); ANION GAP 8.2 MEQ/L (5-15); BILIRUBIN,TOTAL 0.5 mg/dL (0.2-1.3); Creatinine 1 0.67 mg/dL (0.52-1.04); EST GLOMERULAR FILTRATION RATE 118.3 ML/MIN; Potassium 3.4 mmol/L (3.5-5.1); Total Protein 6.9 g/dL (6.3-8.2)
--- NOTE | 2023-12-26 17:13 | ERPHSYRPT ---
- History of Present Illness Time Seen by Provider: 12/26/23 17:00 Historian: patient Exam Limitations: no limitations Patient Subjective Stated Complaint: Patient has been having abdominal and pelvic pain for a few weeks. States she was released from [facility] yester day after a 3 day stay there for possible bowel obstruction. Triage Nursing Assessment: Patient ambulated back to ER; tearful. SHe is alert and oriented; anxious. Skin tone normal with a flushed face. No SOB noted. No cough present. Patient in bed with knees drawn up toward abdomen. Physician History: 33yo f presents for abdominal pain that started 6d prior to arrival. Pt reports she was admitted to [facility] for the same sx, never received a true diagnosis of abdominal pathology and was discharged after 4d of inpatient stay. Pt states they thought she may have had an SBO but she got conflicting reports from multiple doctors. Pt states she has been unable to tolerate PO intake x 4d, pt states she attempted to eat some olive garden soup today but immediately vomited. Pt reports 1 small volume liquid BM in the past week, states she has not passed gas in 1wk. Pt has hx of total hysterectomy. Pt currently denies cp, soa, does endorse n/v/abdominal pain. Timing/Duration: day(s) (5), constant Activities at Onset: none Quality: cramping, sharpness Abdominal Pain Onset Location: LUQ, epigastric Pain Radiation: no radiation Severity of Pain-Max: moderate Severity of Pain-Current: moderate Modifying Factors: Improves With: analgesics Associated Symptoms: nausea, vomiting, No chest pain, No diarrhea, No fev er/chills, No shortness of breath Previous symptoms: recent hospitalization Body Map: 1 - band like across epigastric region and LUQ Allergies/Adverse Reactions: ketorolac [From Toradol] Allergy (Severe, Verified 12/26/23 15:46) Hives latex Allergy (Severe, Verified 12/26/23 15:46) STOPPED BREATHING prochlorperazine [From Compazine] Allergy (Severe, Verified 12/26/23 15:46) Hives and shakes Influenza Virus Vaccines Allergy (Mild, Verified 12/26/23 15:46) headache vomiting levothyroxine sodium [From Synthroid] Allergy (Mild, Verified 12/26/23 15:46) Migranes methylphenidate [From Ritalin] Allergy (Verified 12/26/23 15:46) migranes metoclopramide [From Reglan] Allergy (Verified 12/26/23 15:46) aspirin Adverse Reaction (Mild, Verified 12/26/23 15:46) Vomiting medidate Adverse Reaction (Mild, Uncoded 12/26/23 15:46) VOMTIING Home Medications: Albuterol Common Canister [Ventolin Common Canister] 2 puff IH Q4H PRN 09/01/22 [History] Ipratropium/Albuterol Sulfate [Combivent Respimat Inhal [place]] 4 gm IH DAILY PRN PRN 09/19/22 [History] Levothyroxine Sodium 50 Mcg [Synthroid 50 Mcg] 100 mcg PO DAILY 03/22/23 [History] Semaglutide [Ozempic] 2 mg SQ WEEKLY 03/22/23 [History] Famotidine 20 mg [Pepcid 20 MG] 1 tab PO DAILY 10/07/23 [History] Pregabalin 50 mg [Lyrica 50MG] 2 cap PO DAILY 10/07/23 [History] Hx Tetanus, Diphtheria Vaccination/Date Given: Yes Hx Influenza Vaccination/Date Given: No Hx Pneumococcal Vaccination/Date Given: No Immunizations Up to Date: Yes Travel Risk - International Travel Have you traveled outside of the country in past 3 weeks: No - Coronavirus Screening Are you exhibiting any of the following symptoms?: No Close contact with a COVID-19 positive Pt in past 14-21 Days: No - Vaccine Status Have you recieved a Covid-19 vaccination: No - Review of Systems Constitutional: No Symptoms Respiratory: No Symptoms Cardiac: No Symptoms Abdominal/Gastrointestinal: Abdominal Pain, Nausea, Vomiting, Constipation, No Diarrhea, No Hematemesis, No Hematochezia Genitourinary Symptoms: Dysuria, Urinary Retention - Past Medical History Pertinent Past Medical History: Yes Neurological History: Migraines, Other ENT History: No Pertinent History Cardiac History: Other Respiratory History: Asthma, Sleep Apnea Endocrine Medical History: Hypothyroidism, Other Musculoskeletal History: Fibromyalgia, Fractures, Osteoarthritis GI Medical History: Gallbladder Disease History: No Pertinent History Psycho-Social History: Attention Deficit Disorder, Depression, Other Female Reproductive Disorders: Endometriosis Other Medical History: ADHD, Insulin Resistance, Hoshimoto's Disease, sleeps with CPAP - Past Surgical History Past Surgical History: Yes Neuro Surgical History: No Pertinent History Cardiac: Pacemaker Respiratory: No Pertinent History Gastrointestinal: Cholecystectomy Genitourinary: No Pertinent History Musculoskeletal: No Pertinent History Female Surgical History: Hysterectomy Other Surgical History: c section x3, left oopherectomy and tubal removal,. Loop crowell device (removed) - Social History Smoking Status: Former smoker How long have you smoked: 8 years Exposure to second hand smoke: No Drug Use: none Patient Lives Alone: No Significant Family History: no pertinent family hx, cancer (colon/breast), diabetes, other (Gall bladder disease) - Female History Hx Now: No (total hysterectomy) - Nursing Vital Signs Nursing Vital Signs: Initial Vital Signs Temperature 98.5 F 12/26/23 15:47 Pulse Rate 67 12/26/23 15:47 Respiratory Rate 19 12/26/23 15:47 Blood Pressure 153/95 12/26/23 15:47 O2 Sat by Pulse Oximetry 97 12/26/23 15:47 Pain Scale Pain Intensity 4 - Physical Exam General Appearance: no apparent distress, alert, anxiety Respiratory Exam: normal breath sounds, airway intact, No respiratory distress Cardiovascular Exam: regular rate/rhythm, normal heart sounds, No murmur, No edema Gastrointestinal/Abdomen Exam: soft, No tenderness, No distention, No guarding Neurologic Exam: alert, oriented x 3, cooperative SpO2 Interpretation: normal SpO2: 97 O2 Delivery: Room Air Ordered Tests: Active Orders 24 hr Category Date Time Status IV Insertion STAT Care 12/26/23 16:17 Active ABDOMEN AND PELVIS W CONTRAST [CT] Stat Exams 12/26/23 17:10 Completed AMYLASE Stat Lab 12/26/23 16:10 Completed CBC W DIFF Stat Lab 12/26/23 16:10 Completed CMP Stat Lab 12/26/23 16:10 Completed CULTURE,URINE Stat Lab 12/26/23 19:20 Received LIPASE Stat Lab 12/26/23 16:10 Completed UA W/RFX UR CULTURE Stat Lab 12/26/23 19:20 Completed Medication Summary Discontinued Medications Generic Name Dose Route Start Last Admin Trade Name Alis PRN Reason Stop Dose Admin Hydrocodone Bitart/Acetaminophen 2 tab 12/26/23 22:00 12/26/23 22:02 Hydrocodone/Apap 5/325 1 Tab Tablet PO 12/26/23 22:01 2 tab SENT HOME W/ PATIENT ONE Administration Hydrocodone Bitart/Acetaminophen Confirm 12/26/23 22:00 Hydrocodone/Apap 5/325 1 Tab Tablet Administered 12/26/23 22:01 Dose 2 tab .ROUTE .STK-MED ONE Hydromorphone HCl 0.5 mg 12/26/23 17:10 12/26/23 18:08 Hydromorphone 1 Mg/1ml Inj IV 12/26/23 17:11 0.5 mg STAT ONE Administration Hydromorphone HCl Confirm 12/26/23 17:28 Hydromorphone 1 Mg/1ml Inj Administered 12/26/23 17:29 Dose 1 mg .ROUTE .STK-MED ONE Hydromorphone HCl Confirm 12/26/23 18:07 Hydromorphone 1 Mg/1ml Inj Administered 12/26/23 18:08 Dose 1 mg .ROUTE .STK-MED ONE Hydromorphone HCl 1 mg 12/26/23 22:00 12/26/23 22:02 Hydromorphone 1 Mg/1ml Inj IV 12/26/23 22:01 1 mg STAT ONE Administration Hydromorphone HCl Confirm 12/26/23 22:00 Hydromorphone 1 Mg/1ml Inj Administered 12/26/23 22:01 Dose 1 mg .ROUTE .STK-MED ONE Sodium Chloride 1,000 mls @ 999 mls/hr 12/26/23 17:10 12/26/23 18:33 Sodium Chloride 0.9% 1000 Ml IV 12/26/23 18:10 Infused .Q1H1M STA Infusion Sodium Chloride Confirm 12/26/23 17:28 Sodium Chloride 0.9% 1000 Ml Administered 12/26/23 17:29 Dose 1,000 mls @ ud .ROUTE .STK-MED ONE Lorazepam 1 mg 12/26/23 20:28 12/26/23 20:46 Lorazepam 2 Mg/1 Ml 2 Mg Vial IV 12/26/23 20:29 1 mg STAT ONE Administration Lorazepam Confirm 12/26/23 20:43 Lorazepam 2 Mg/1 Ml 2 Mg Vial Administered 12/26/23 20:44 Dose 2 mg .ROUTE .STK-MED ONE Ondansetron HCl 4 mg 12/26/23 17:10 12/26/23 17:30 Ondansetron Hcl 4 Mg/2 Ml Vial IV 12/26/23 17:11 4 mg STAT ONE Administration Ondansetron HCl Confirm 12/26/23 17:28 Ondansetron Hcl 4 Mg/2 Ml Vial Administered 12/26/23 17:29 Dose 4 mg .ROUTE .STK-MED ONE Ondansetron HCl 4 mg 12/26/23 21:49 12/26/23 22:02 Ondansetron Hcl 4 Mg/2 Ml Vial IV 12/26/23 21:50 4 mg STAT ONE Administration Ondansetron HCl Confirm 12/26/23 21:57 Ondansetron Hcl 4 Mg/2 Ml Vial Administered 12/26/23 21:58 Dose 4 mg .ROUTE .STK-MED ONE Lab/Rad Data: Laboratory Result Diagrams 12/26/23 16:10 12/26/23 16:10 Laboratory Results 12/26/23 12/26/23 12/26/23 Range/Units 19:30 19:20 16:10 WBC (4.0-10.5) x10^3/uL RBC (4.1-5.4) x10^6/uL Hgb (12.0-16.0) g/dL Hct (35-47) % MCV (78-100) fL MCH (26-32) pg MCHC (32-36) g/dL RDW (11.5-14.0) % Plt Count (150-450) x10^3/uL MPV (7.5-11.0) fL Gran % (36.0-66.0) % Immature Gran % (Auto) (0.00-0.4) % Nucleat RBC Rel Count (0.00-0.1) % Eos # (Auto) (0-0.5) x10^3/uL Immature Gran # (Auto) (0.00-0.03) x10^3u/L Absolute Lymphs (auto) (1.0-4.6) x10^3/uL Absolute Monos (auto) (0.0-1.3) x10^3/uL Absolute Nucleated RBC (0.00-0.01) x10^3u/L Lymphocytes % (24.0-44.0) % Monocytes % (0.0-12.0) % Eosinophils % (0.00-5.0) % Basophils % (0.0-0.4) % Absolute Granulocytes (1.4-6.9) x10^3/uL Basophils # (0-0.4) x10^3/uL Sodium 136 L (137-145) mmol/L Potassium 3.4 L (3.5-5.1) mmol/L Chloride 107 (98-107) mmol/L Carbon Dioxide 24 (22-30) mmol/L Anion Gap 8.2 (5-15) MEQ/L BUN 4 L (7-17) mg/dL Creatinine 0.67 (0.52-1.04) mg/dL Estimated GFR 118.3 ML/MIN Glucose 106 (74-106) mg/dL Calcium 9.0 (8.4-10.2) mg/dL Total Bilirubin 0.50 (0.2-1.3) mg/dL AST 31 (14-36) U/L ALT 46 H (0-35) U/L Alkaline Phosphatase 76 (38-126) U/L Serum Total Protein 6.9 (6.3-8.2) g/dL Albumin 3.9 (3.5-5.0) g/dL Amylase 60 (30-110) U/L Lipase 66 (23-300) U/L Urine Color Yellow (Yellow) Urine Appearance Clear (Clear) Urine pH 7.5 (4.6-8.0) Ur Specific [place] >=1.030 A (1.005-1.030) Urine Protein Negative (Negative) Urine Glucose (UA) Negative (Negative) mg/dL Urine Ketones Trace A (Negative) Urine Blood Negative (Negative) Urine Nitrite Negative (Negative) Urine Bilirubin Negative (Negative) Urine Urobilinogen 0.2 (0.2) mg/dL Ur Leukocyte Esterase Small A (Negative) U Hyaline Cast (Auto) NONE SEEN (0-2) /LPF Urine Microscopic RBC 0-2 (0-5) /HPF Urine Microscopic WBC 21-50 A (0-5) /HPF Ur Epithelial Cells None Seen (None Seen) /HPF Urine Bacteria None Seen (None Seen) /HPF Urine Culture Reflexed YES (NO) Chlamydia DNA Probe NOT DETECTED (NEGATIVE) N.gonorrhoeae DNA Probe NOT DETECTED (NEGATIVE) 12/26/23 Range/Units 16:10 WBC 5.5 (4.0-10.5) x10^3/uL RBC 4.99 (4.1-5.4) x10^6/uL Hgb 13.3 (12.0-16.0) g/dL Hct 41.0 (35-47) % MCV 82.2 (78-100) fL MCH 26.7 (26-32) pg MCHC 32.4 (32-36) g/dL RDW 12.7 (11.5-14.0) % Plt Count 237 (150-450) x10^3/uL MPV 10.4 (7.5-11.0) fL Gran % 69.8 H (36.0-66.0) % Immature Gran % (Auto) 0.2 (0.00-0.4) % Nucleat RBC Rel Count 0.0 (0.00-0.1) % Eos # (Auto) 0.07 (0-0.5) x10^3/uL Immature Gran # (Auto) 0.01 (0.00-0.03) x10^3u/L Absolute Lymphs (auto) 1.29 (1.0-4.6) x10^3/uL Absolute Monos (auto) 0.25 (0.0-1.3) x10^3/uL Absolute Nucleated RBC 0.00 (0.00-0.01) x10^3u/L Lymphocytes % 23.7 L (24.0-44.0) % Monocytes % 4.6 (0.0-12.0) % Eosinophils % 1.3 (0.00-5.0) % Basophils % 0.4 (0.0-0.4) % Absolute Granulocytes 3.81 (1.4-6.9) x10^3/uL Basophils # 0.02 (0-0.4) x10^3/uL Sodium (137-145) mmol/L Potassium (3.5-5.1) mmol/L Chloride (98-107) mmol/L Carbon Dioxide (22-30) mmol/L Anion Gap (5-15) MEQ/L BUN (7-17) mg/dL Creatinine (0.52-1.04) mg/dL Estimated GFR ML/MIN Glucose (74-106) mg/dL Calcium (8.4-10.2) mg/dL Total Bilirubin (0.2-1.3) mg/dL AST (14-36) U/L ALT (0-35) U/L Alkaline Phosphatase (38-126) U/L Serum Total Protein (6.3-8.2) g/dL Albumin (3.5-5.0) g/dL Amylase (30-110) U/L Lipase (23-300) U/L Urine Color (Yellow) Urine Appearance (Clear) Urine pH (4.6-8.0) Ur Specific [place] (1.005-1.030) Urine Protein (Negative) Urine Glucose (UA) (Negative) mg/dL Urine Ketones (Negative) Urine Blood (Negative) Urine Nitrite (Negative) Urine Bilirubin (Negative) Urine Urobilinogen (0.2) mg/dL Ur Leukocyte Esterase (Negative) U Hyaline Cast (Auto) (0-2) /LPF Urine Microscopic RBC (0-5) /HPF Urine Microscopic WBC (0-5) /HPF Ur Epithelial Cells (None Seen) /HPF Urine Bacteria (None Seen) /HPF Urine Culture Reflexed (NO) Chlamydia DNA Probe (NEGATIVE) N.gonorrhoeae DNA Probe (NEGATIVE) - Progress Progress: improved Progress Note: 12/26/23 20: 12/26/23 20:29 CT abd/pel w/ contrast showed: 1. No significant acute intra-abdominal findings 2. A tiny hypodense lesion within segment 6 of the liver, could be a cyst but too small to characterize. Sonographic follow-up is recommended. 3. A 2.0 cm cyst in the right adnexa, likely ovarian in origin. 4. A partially visualized suspicious nodule within the right middle lobe medial segment measuring about 9 x [address] is suggested discussed all above findings with patient pt still reporting significant nausea, reports multiple dry heaves pt very anxious on exam, 1mg IV ativan ordered 12/26/23 22:07 plan to give additional dose IV dilaudid, pt reports nausea is improving following additional dose zofran pt given 2 5mg norco tablets to take home, given strict instructions to not take these for > 6hours - pt agreed Instructed to follow up w/ PCP Dr Cao as soon as possible, instructed to call first thing in the AM for appt Return to ED if pain significantly worsens, fever spikes, start to vomit or defecate blood given prescription for bactrim for UTI treatment 12/26/23 22:16 Counseled pt/family regarding: lab results, diagnosis, need for follow-up, rad results Medical Desision Making - Risk of complications Low Risk: Low risk of morbidity from additional dx testing or treatment - Departure Departure Disposition: Home Clinical Impression: Nausea UTI (urinary tract infection) Qualifiers: Urinary tract infection type: acute cystitis Hematuria presence: without hematuria Qualified Code(s): N30.00 - Acute cystitis without hematuria Abdominal pain Qualifiers: Abdominal location: generalized Qualified Code(s): R10.84 - Generalized abdominal pain Condition: Stable Critical Care Time: No Referrals: TIMA CAO MD [Primary Care Provider] - Follow up/PCP as directed Additional Instructions: pt given 2 5mg norco tablets to take home, given strict instructions to not take these for > 6hours - pt agreed Instructed to follow up w/ PCP Dr Cao as soon as possible, instructed to call first thing in the AM for appt Return to ED if pain significantly worsens, fever spikes, start to vomit or defecate blood given prescription for bactrim for UTI treatment Prescriptions: Smz/Tmp Ds Tablet [Bactrim Ds Tablet] 1 tab PO Q12H 3 Days #6 tablet
[2023-12-26] MEDS ORDERED: Sodium Chloride 0.9% 1000 ML 1,000 ML ONE (17:28)
[2023-12-26] MEDS ORDERED: Hydromorphone 1 mg/ml Injection ONE ×3 (17:28→22:00)
[2023-12-26] MEDS ORDERED: Zofran 4 MG/2 ML VIAL ONE ×2 (17:28→21:57)
[2023-12-26] MEDS: Zofran 4 MG/2 ML VIAL IV ONE ×2 (17:30→22:02)
[2023-12-26] MEDS: Sodium Chloride 0.9% 1000 ML 1,000 ML IV STA (17:31)
[2023-12-26] MEDS: Hydromorphone 1 mg/ml Injection IV ONE ×2 (18:08→22:02)
[2023-12-26 19:39] LABS: Appearance Clear (Clear); Bacteria None Seen /HPF (None Seen); Bilirubin Negative (Negative); Blood Negative (Negative); Epithelial Cells None Seen /HPF (None Seen); Glucose, Urine Negative (Negative); Hyaline Casts NONE SEEN /LPF (0-2); Ketones Trace (Negative); Leukocyte Esterase Small (Negative); Nitrite Negative (Negative); Ph 7.5 (4.6-8.0); Protein,Urine Dip Negative (Negative); RBC 0-2 /HPF (0-5); Specific Gravity >=1.030 (1.005-1.030); Urobilinogen 0.2 mg/dL (0.2); WBC 21-50 /HPF (0-5)
[2023-12-26 19:46] LABS: ADD URINE CULTURE? YES (NO)
--- NOTE | 2023-12-26 19:57 | XRAY ---
CLINICAL HISTORY: abdominal pain TECHNIQUE: CT scan of the abdomen and pelvis was performed with IV contrast, Coronal and sagittal reconstructive images were also obtained. Total DLP 1250.5 mGy-cm, COMPARISON: None FINDINGS: Lung bases reveal a partially visualized suspicious nodule within the right middle lobe medial segment measuring about 9 x [address] is suggested. A tiny hypodense lesion is seen within segment 6 of the liver measuring about 3 mm in size, could be a cyst but too small to characterize. Sonographic follow-up is recommended. The liver is normal in size. The portal vein, intrahepatic biliary radicals, and the bile ducts are normal. Status post cholecystectomy. The spleen, pancreas, and adrenal glands are unremarkable. The kidneys are unremarkable. They are normal in size and shape. No calculi or hydronephrosis is seen. The ascending colon, the transverse colon, the descending colon, visualized small bowel loops are unremarkable. There is no evidence of significant enlargement of the mesenteric or retroperitoneal lymph nodes. The osseous structures in the lower rib cage and lumbar spine show no abnormality. Appendix is in normal size and appearance. There is hyperdense material within the lumen likely related to the accumulation of previous contrast medium Pelvis: The urinary bladder is unremarkable. The rectosigmoid colon is unremarkable. A 2.0 cm cyst in the right adnexa, likely ovarian in origin. Likely status posts hysterectomy. The pelvic vasculature is unremarkable. No evidence of pelvic lymphadenopathy. No definite bony abnormalities could be depicted. IMPRESSION: 1. No significant acute intra-abdominal findings 2. A tiny hypodense lesion within segment 6 of the liver, could be a cyst but too small to characterize. Sonographic follow-up is recommended. 3. A 2.0 cm cyst in the right adnexa, likely ovarian in origin. 4. A partially visualized suspicious nodule within the right middle lobe medial segment measuring about 9 x [address] is suggested. Electronically Signed by: Randall Mays MD. (12/26/2023 19:53:49 EST)
[2023-12-26] MEDS ORDERED: Ativan 2 MG/1 ML VIAL ONE (20:43)
[2023-12-26] MEDS: Ativan 2 MG/1 ML VIAL IV ONE (20:46)
[2023-12-26 21:02] LABS: CHLAMYDIA DNA NOT DETECTED (NEGATIVE); GC DNA Probe NOT DETECTED (NEGATIVE)
[2023-12-26] MEDS ORDERED: NORCO 5/325 MG ONE (22:00)
[2023-12-26] MEDS: NORCO 5/325 MG PO ONE (22:02)
[2023-12-26 22:08] VITALS: BP 156/95; PULSE 62; RESP 16
[2023-12-26 22:15] VITALS: O2SAT 97
== END 2023-12-26 22:45 | disposition home or self-care (01) ==
LOC: ED 15:29
DX: N30.00 Acute cystitis without hematuria (principal); R11.0 Nausea; R10.84 Generalized abdominal pain; Z79.84 Long term (current) use of oral hypoglycemic drugs; Z79.899 Other long term (current) drug therapy; Z28.310 Unvaccinated for COVID-19
CPT/HCPCS: 36000; 36415; 74177; 80053; 81001; 82150; 83690; 85025; 87086; 87491; 87591; 96374; 96375; 96376; 99284; J1170; J2060; J2405; A9270-GY

== ENCOUNTER 2024-03-15 08:15 | Day surgery (SDC) | payer OTHER ==
[2024-03-15] MEDS ORDERED: Xylocaine-Mpf 2% 5 Ml Vial IJ ONE (08:16)
[2024-03-15] MEDS ORDERED: Decadron 4 MG INJ IV ONE (08:16)
[2024-03-15] MEDS ORDERED: Lactated Ringers 1,000 ML IV ONE (09:50)
[2024-03-15] MEDS ORDERED: DIPRIVAN 200 MG/20 ML IV ONE (10:09)
[2024-03-15] MEDS ORDERED: MORPHINE SULFATE 2 MG INJ ONE (10:31)
--- NOTE | 2024-03-15 12:31 | XRAY ---
Indication: Left L4-S1 transforaminal CONSTANCE. Intraoperative fluoroscopy provided for 22 seconds. 4 digital spot image submitted for interpretation demonstrates posterior needle tips projecting over the expected left L4 and L5 nerve roots. Small amount of contrast injected for needle tip placement. Correlate with interoperative findings/report.
--- NOTE | 2024-03-15 12:37 | XRAY ---
22 seconds of fluoroscopy was used in surgery for a left L4-S1 transforaminal CONSTANCE.
== END 2024-03-15 11:00 | disposition home or self-care (01) ==
LOC: SDC-PAIN 08:15
PROVIDERS: ATTEND Psychiatry & Neurology Pain Medicine
DX: M47.816 Spondylosis without myelopathy or radiculopathy, lumbar region (principal); E11.9 Type 2 diabetes mellitus without complications
CPT/HCPCS: 64483; 64484; 72100; 77003; 82947; J1100; J2270; J2704; Q9966

== ENCOUNTER 2024-08-10 08:26 | Emergency (ER) | payer OTHER ==
[2024-08-10 08:47] LABS: Appearance Cloudy (Clear); Bilirubin Negative (Negative); Blood Moderate (Negative); Glucose, Urine Negative (Negative); Ketones 15 (Negative); Leukocyte Esterase Moderate (Negative); Nitrite Negative (Negative); Ph 7.5 (4.6-8.0); Protein,Urine Dip 100 (Negative); Specific Gravity >=1.030 (1.005-1.030)
[2024-08-10] MEDS ORDERED: Zofran 4 MG/2 ML VIAL ONE (08:50)
[2024-08-10] MEDS: Zofran 4 MG/2 ML VIAL IV ONE (08:50)
[2024-08-10] MEDS ORDERED: Sodium Chloride 0.9% 1000 ML 1,000 ML ONE (08:50)
[2024-08-10] MEDS ORDERED: MORPHINE SULFATE 4 MG INJ ONE (08:50)
[2024-08-10] MEDS: Sodium Chloride 0.9% 1000 ML 1,000 ML IV STA (08:51)
[2024-08-10] MEDS: MORPHINE SULFATE 4 MG INJ IV ONE (08:51)
[2024-08-10 08:52] LABS: Bacteria Few /HPF (None Seen); Epithelial Cells Rare /HPF (None Seen); Hyaline Casts NONE SEEN /LPF (0-2); RBC 21-50 /HPF (0-5); WBC >100 /HPF (0-5)
[2024-08-10 08:54] VITALS: TEMP 98
[2024-08-10 08:57] LABS: ALBUMIN 4.6 g/dL (3.5-5.0); ANION GAP 16.1 MEQ/L (5-15); Absolute Neutrophil Ct (ANC) 4.55 x10^3/uL (1.56-6.13); BASOPHIL % 0.4 % (0.1-1.2); BILIRUBIN,TOTAL 0.9 mg/dL (0.2-1.3); Basophil (Absolute #) 0.03 x10^3/uL (0.01-0.08); Calcium 9.3 mg/dL (8.4-10.2); Creatinine 1 0.73 mg/dL (0.52-1.04); EST GLOMERULAR FILTRATION RATE 111.3 ML/MIN; Eosinophil % 1.5 % (0.7-5.8); Hematocrit 43.4 % (34.1-44.9); Hemoglobin 14.6 g/dL (11.2-15.7); IMMATURE GRAN # 0.02 x10^3u/L (0.001-0.031); IMMATURE GRAN % 0.3 % (0.001-0.429); Lymphocyte (Absolute #) 1.69 x10^3/uL (1.18-3.74); Lymphocytes % 25.2 % (19.3-51.7); Mean Corpuscular Hemoglobin 27.6 pg (25.6-32.2); Mean Corpuscular Hgb Concent. 33.6 g/dL (32.2-35.5); Mean Platelet Volume 10.2 fL (9.4-12.3); Monocyte (Absolute #) 0.32 x10^3/uL (0.24-0.86); Monocytes % 4.8 % (4.7-12.5); Neutrophil % 67.8 % (34.0-71.1); Platelet Count 227 x10^3/uL (182-369); Potassium 3.9 mmol/L (3.5-5.1); Red Blood Count 5.29 x10^6/uL (3.93-5.22); Red Cell Distribution Width 12.4 % (11.7-14.4); Total Protein 7.6 g/dL (6.3-8.2); White Blood Count 6.7 x10^3/uL (3.98-10.04)
[2024-08-10 08:59] LABS: HCG URINE TEST NEGATIVE (NEGATIVE)
--- NOTE | 2024-08-10 10:19 | XRAY ---
Indication: Pain. Recurring UTI. Multiple contiguous axial images obtained through the abdomen and pelvis without contrast. Comparison: December 26, 2023 Lung bases demonstrate stable small right middle lobe calcified granuloma. No infiltrate or effusion. Heart not enlarged again with pacer lead. Noncontrasted stomach and bowel loops nonobstructed. Stable small descending duodenal diverticulum and normal appendix. Again cholecystectomy and hysterectomy. No free fluid/air. Remaining liver, pancreas, spleen, adrenal glands, kidneys, ureters, latter, and aorta are unremarkable for noncontrast exam. Osseous structures intact. Impression: Again incidental right middle lobe calcified granuloma and duodenal diverticulum. Remaining CT abdomen/pelvis without contrast exam continues to be normal.
[2024-08-10] MEDS ORDERED: MOTRIN 600 MG ONE (10:26)
[2024-08-10] MEDS ORDERED: ROCEPHIN 2 GM/100 ML NACL 2 GM/100 ML IVPB IV ONE (10:26)
[2024-08-10] MEDS: MOTRIN 600 MG PO ONE (10:27)
[2024-08-10] MEDS: ROCEPHIN 2 GM/100 ML NACL 2 GM/100 ML IVPB IV ONE (10:28)
[2024-08-10 12:30] LABS: CHLAMYDIA DNA NOT DETECTED (NEGATIVE); GC DNA Probe NOT DETECTED (NEGATIVE)
--- NOTE | 2024-08-10 12:45 | ERPHSYRPT ---
- History of Present Illness Time Seen by Provider: 08/10/24 08:37 Historian: patient Exam Limitations: no limitations Patient Subjective Stated Complaint: C/O abdominal pain since Wednesday Triage Nursing Assessment: Patient ambulated back to ER. She is alert and oriented; anxious and tearful. NO SOB. Skin tone normal. Urine specimen obtained for U/A; cloudy, sediment present, odor present. No increased pain with abd palpation. Denies issues with bowels. Physician History: 33 years old female presented in the ER with lower abdominal pain with UTI symptoms for the last 3 to 4 days. Patient reports going through multiple rounds of antibiotics for UTI and recently finished course of Flagyl for trichomonas. Reports dysuria, increased frequency, sense of incomplete voiding send urgency where she cannot make it to the bathroom. Patient reports cloudy nests of urine. No bonnie hematuria. Pain is moderate to severe sharp shooting. She has history of hysterectomy. No fever or chills reported. Allergies/Adverse Reactions: ketorolac [From Toradol] Allergy (Severe, Verified 08/10/24 08:37) Hives latex Allergy (Severe, Verified 08/10/24 08:37) STOPPED BREATHING prochlorperazine [From Compazine] Allergy (Severe, Verified 08/10/24 08:37) Hives and shakes Influenza Virus Vaccines Allergy (Mild, Verified 08/10/24 08:37) headache vomiting levothyroxine sodium [From Synthroid] Allergy (Mild, Verified 08/10/24 08:37) Migranes methylphenidate [From Ritalin] Allergy (Verified 08/10/24 08:37) migranes metoclopramide [From Reglan] Allergy (Verified 08/10/24 08:37) aspirin Adverse Reaction (Mild, Verified 08/10/24 08:37) Vomiting medidate Adverse Reaction (Mild, Uncoded 08/10/24 08:37) VOMTIING Home Medications: Albuterol Common Canister [Ventolin Common Canister] 2 puff IH Q4H PRN 09/01/22 [History] Ipratropium/Albuterol Sulfate [Combivent Respimat Inhal [place]] 4 gm IH DAILY PRN PRN 09/19/22 [History] Semaglutide [Ozempic] 2 mg SQ WEEKLY 03/22/23 [History] Famotidine 20 mg [Pepcid 20 MG] 1 tab PO DAILY 10/07/23 [History] Estradiol [Vivelle-Dot] 1 patch TOP CLARIFY 08/10/24 [History] Levothyroxine Sodium [Unithroid] 100 mcg PO DAILY 08/10/24 [History] Meloxicam 7.5 mg PO DAILY 08/10/24 [History] Hx Tetanus, Diphtheria Vaccination/Date Given: Yes Hx Influenza Vaccination/Date Given: No Hx Pneumococcal Vaccination/Date Given: No Immunizations Up to Date: Yes Travel Risk - International Travel Have you traveled outside of the country in past 3 weeks: No - Emerging Infectious Disease Are you exhibiting symptoms associated with any current EIDs: Yes Symptoms: Abdominal Pain - Review of Systems Constitutional: No Symptoms Eyes: No Symptoms Ears, Nose, & Throat: No Symptoms Respiratory: No Symptoms Cardiac: No Symptoms Abdominal/Gastrointestinal: Abdominal Pain Genitourinary Symptoms: Dysuria, Frequency, Urgency Musculoskeletal: Back Pain Skin: No Symptoms Neurological: No Symptoms Endocrine: No Symptoms Hematologic/Lymphatic: No Symptoms - Past Medical History Pertinent Past Medical History: Yes Neurological History: Migraines ENT History: No Pertinent History Cardiac History: Other Respiratory History: Asthma Endocrine Medical History: Diabetes Type II, Hypothyroidism, Liver Disease Musculoskeletal History: Fibromyalgia GI Medical History: Gallbladder Disease History: No Pertinent History Psycho-Social History: Attention Deficit Disorder, Depression, Other Female Reproductive Disorders: Endometriosis Other Medical History: Pacemaker, x3, Hysterectomy (R Ovary retained), Cholecystectomy, L Cubital Tunnel Release - Past Surgical History Past Surgical History: Yes Neuro Surgical History: No Pertinent History Cardiac: Pacemaker Respiratory: No Pertinent History Gastrointestinal: Cholecystectomy Genitourinary: No Pertinent History Musculoskeletal: No Pertinent History Female Surgical History: Hysterectomy Other Surgical History: c section x3, left oopherectomy and tubal removal,. Loop crowell device (removed) Significant Family History: no pertinent family hx, cancer (colon/breast), diabetes, other (Gall bladder disease) - Female History Hx Last Menstrual Period: 11/16/2012 Hx Now: No - Social History Smoking Status: Former smoker How long have you smoked: 8 years Exposure to second hand smoke: No Drug Use: none Patient Lives Alone: No - Social Determinants of Health Will the patient participate in the screening: Declined to provide - Nursing Vital Signs Nursing Vital Signs: Initial Vital Signs Temperature 98 F 08/10/24 08:26 Pulse Rate 65 08/10/24 08:26 Respiratory Rate 20 08/10/24 08:26 Blood Pressure 154/104 08/10/24 08:26 O2 Sat by Pulse Oximetry 95 08/10/24 08:26 Pain Scale Pain Intensity 6 - Physical Exam General Appearance: no apparent distress, alert, anxiety Eye Exam: PERRL/EOMI Ears, Nose, Throat Exam: normal ENT inspection Neck Exam: normal inspection, full range of motion Respiratory Exam: normal breath sounds, lungs clear Cardiovascular Exam: regular rate/rhythm, normal heart sounds Gastrointestinal/Abdomen Exam: soft, normal bowel sounds, tenderness ( Suprapubic's/lower abdominal tenderness to deep palpation.) Back Exam: No CVA tenderness Extremity Exam: normal inspection, normal range of motion, pelvis stable Neurologic Exam: alert, oriented x 3, cooperative Skin Exam: normal color SpO2 Interpretation: normal SpO2: 100 O2 Delivery: Room Air Ordered Tests: Active Orders 24 hr Category Date Time Status IV Insertion STAT Care 08/10/24 08:30 Active NPO (ED) STAT Care 08/10/24 08:30 Active ABDOMEN AND PELVIS W/0 CONTRAS [CT] Stat Exams 08/10/24 08:31 Completed AMYLASE Stat Lab 08/10/24 08:31 Completed CBC W DIFF Stat Lab 08/10/24 08:31 Completed CMP Stat Lab 08/10/24 08:31 Completed CULTURE,URINE Stat Lab 08/10/24 08:31 Received HCG QUALITATIVE, URINE Stat Lab 08/10/24 08:31 Completed LIPASE Stat Lab 08/10/24 08:31 Completed Lactic Acid Stat Lab 08/10/24 08:30 Completed UA W/RFX UR CULTURE Stat Lab 08/10/24 08:31 Completed Medication Summary Discontinued Medications Generic Name Dose Route Start Last Admin Trade Name Freq PRN Reason Stop Dose Admin Sodium Chloride 1,000 mls @ 999 mls/hr 08/10/24 08:43 08/10/24 09:59 Sodium Chloride 0.9% 1000 Ml IV 08/10/24 09:43 Infused .Q1H1M STA Infusion Sodium Chloride Confirm 08/10/24 08:50 Sodium Chloride 0.9% 1000 Ml Administered 08/10/24 08:51 Dose 1,000 mls @ ud .ROUTE .STK-MED ONE Ceftriaxone Sodium 2 gm in 100 mls @ 200 mls/hr 08/10/24 10:24 08/10/24 11:01 Rocephin 2 Gm/100 Ml Nacl IV 08/10/24 10:53 Infused STAT ONE Infusion Ceftriaxone Sodium Confirm 08/10/24 10:26 Rocephin 2 Gm/100 Ml Nacl Administered 08/10/24 10:27 Dose 2 gm in 100 mls @ ud IV .STK-MED ONE Ibuprofen 600 mg 08/10/24 10:24 08/10/24 10:27 Ibuprofen 600 Mg Tablet PO 08/10/24 10:25 600 mg STAT ONE Administration Ibuprofen Confirm 08/10/24 10:26 Ibuprofen 600 Mg Tablet Administered 08/10/24 10:27 Dose 600 mg .ROUTE .STK-MED ONE Morphine Sulfate 4 mg 08/10/24 08:43 08/10/24 08:51 Morphine Sulfate 4 Mg/Ml Injection IV 08/10/24 08:44 4 mg STAT ONE Administration Morphine Sulfate Confirm 08/10/24 08:50 Morphine Sulfate 4 Mg/Ml Injection Administered 08/10/24 08:51 Dose 4 mg .ROUTE .STK-MED ONE Ondansetron HCl 4 mg 08/10/24 08:43 08/10/24 08:50 Ondansetron Hcl 4 Mg/2 Ml Vial IV 08/10/24 08:44 4 mg STAT ONE Administration Ondansetron HCl Confirm 08/10/24 08:50 Ondansetron Hcl 4 Mg/2 Ml Vial Administered 08/10/24 08:51 Dose 4 mg .ROUTE .STK-MED ONE Lab/Rad Data: Laboratory Result Diagrams 08/10/24 08:31 08/10/24 08:31 Laboratory Results 08/10/24 08/10/24 08/10/24 Range/Units 10:50 08:31 08:31 WBC (3.98-10.04) x10^3/uL RBC (3.93-5.22) x10^6/uL Hgb (11.2-15.7) g/dL Hct (34.1-44.9) % MCV (79.4-94.8) fL MCH (25.6-32.2) pg MCHC (32.2-35.5) g/dL RDW (11.7-14.4) % Plt Count (182-369) x10^3/uL MPV (9.4-12.3) fL Gran % (34.0-71.1) % Immature Gran % (Auto) (0.001-0.429) % Nucleat RBC Rel Count (0.00-0.2) % Eos # (Auto) (0.04-0.36) x10^3/uL Immature Gran # (Auto) (0.001-0.031) x10^3u/L Absolute Lymphs (auto) (1.18-3.74) x10^3/uL Absolute Monos (auto) (0.24-0.86) x10^3/uL Absolute Nucleated RBC (0.00-0.012) x10^3u/L Lymphocytes % (19.3-51.7) % Monocytes % (4.7-12.5) % Eosinophils % (0.7-5.8) % Basophils % (0.1-1.2) % Absolute Granulocytes (1.56-6.13) x10^3/uL Basophils # (0.01-0.08) x10^3/uL Sodium (135-145) mmol/L Potassium (3.5-5.1) mmol/L Chloride (98-107) mmol/L Carbon Dioxide (22-30) mmol/L Anion Gap (5-15) MEQ/L BUN (7-17) mg/dL Creatinine (0.52-1.04) mg/dL Estimated GFR ML/MIN Glucose (74-106) mg/dL Lactic Acid (0.4-2.0) Calcium (8.4-10.2) mg/dL Total Bilirubin (0.2-1.3) mg/dL AST (14-36) U/L ALT (0-35) U/L Alkaline Phosphatase (38-126) U/L Serum Total Protein (6.3-8.2) g/dL Albumin (3.5-5.0) g/dL Amylase (30-110) U/L Lipase (23-300) U/L Urine Color Yellow (Yellow) Urine Appearance Cloudy A (Clear) Urine pH 7.5 (4.6-8.0) Ur Specific [place] >=1.030 A (1.005-1.030) Urine Protein 100 A (Negative) Urine Glucose (UA) Negative (Negative) mg/dL Urine Ketones 15 A (Negative) Urine Blood Moderate A (Negative) Urine Nitrite Negative (Negative) Urine Bilirubin Negative (Negative) Urine Urobilinogen 1.0 A (0.2) mg/dL Ur Leukocyte Esterase Moderate A (Negative) U Hyaline Cast (Auto) NONE SEEN (0-2) /LPF Urine Microscopic RBC 21-50 A (0-5) /HPF Urine Microscopic WBC >100 A (0-5) /HPF Ur Epithelial Cells Rare (None Seen) /HPF Urine Bacteria Few A (None Seen) /HPF Urine Culture Reflexed YES (NO) Urine HCG, Qual NEGATIVE (NEGATIVE) Chlamydia DNA Probe NOT DETECTED (NEGATIVE) N.gonorrhoeae DNA Probe NOT DETECTED (NEGATIVE) 08/10/24 08/10/24 08/10/24 Range/Units 08:31 08:31 08:30 WBC 6.7 (3.98-10.04) x10^3/uL RBC 5.29 H (3.93-5.22) x10^6/uL Hgb 14.6 (11.2-15.7) g/dL Hct 43.4 (34.1-44.9) % MCV 82.0 (79.4-94.8) fL MCH 27.6 (25.6-32.2) pg MCHC 33.6 (32.2-35.5) g/dL RDW 12.4 (11.7-14.4) % Plt Count 227 (182-369) x10^3/uL MPV 10.2 (9.4-12.3) fL Gran % 67.8 (34.0-71.1) % Immature Gran % (Auto) 0.3 (0.001-0.429) % Nucleat RBC Rel Count 0.0 (0.00-0.2) % Eos # (Auto) 0.10 (0.04-0.36) x10^3/uL Immature Gran # (Auto) 0.02 (0.001-0.031) x10^3u/L Absolute Lymphs (auto) 1.69 (1.18-3.74) x10^3/uL Absolute Monos (auto) 0.32 (0.24-0.86) x10^3/uL Absolute Nucleated RBC 0.00 (0.00-0.012) x10^3u/L Lymphocytes % 25.2 (19.3-51.7) % Monocytes % 4.8 (4.7-12.5) % Eosinophils % 1.5 (0.7-5.8) % Basophils % 0.4 (0.1-1.2) % Absolute Granulocytes 4.55 (1.56-6.13) x10^3/uL Basophils # 0.03 (0.01-0.08) x10^3/uL Sodium 140 (135-145) mmol/L Potassium 3.9 (3.5-5.1) mmol/L Chloride 107 (98-107) mmol/L Carbon Dioxide 20 L (22-30) mmol/L Anion Gap 16.1 H (5-15) MEQ/L BUN 10 (7-17) mg/dL Creatinine 0.73 (0.52-1.04) mg/dL Estimated GFR 111.3 ML/MIN Glucose 93 (74-106) mg/dL Lactic Acid 1.5 (0.4-2.0) Calcium 9.3 (8.4-10.2) mg/dL Total Bilirubin 0.90 (0.2-1.3) mg/dL AST 28 (14-36) U/L ALT 25 (0-35) U/L Alkaline Phosphatase 50 (38-126) U/L Serum Total Protein 7.6 (6.3-8.2) g/dL Albumin 4.6 (3.5-5.0) g/dL Amylase 81 (30-110) U/L Lipase 90 (23-300) U/L Urine Color (Yellow) Urine Appearance (Clear) Urine pH (4.6-8.0) Ur Specific [place] (1.005-1.030) Urine Protein (Negative) Urine Glucose (UA) (Negative) mg/dL Urine Ketones (Negative) Urine Blood (Negative) Urine Nitrite (Negative) Urine Bilirubin (Negative) Urine Urobilinogen (0.2) mg/dL Ur Leukocyte Esterase (Negative) U Hyaline Cast (Auto) (0-2) /LPF Urine Microscopic RBC (0-5) /HPF Urine Microscopic WBC (0-5) /HPF Ur Epithelial Cells (None Seen) /HPF Urine Bacteria (None Seen) /HPF Urine Culture Reflexed (NO) Urine HCG, Qual (NEGATIVE) Chlamydia DNA Probe (NEGATIVE) N.gonorrhoeae DNA Probe (NEGATIVE) - Progress Progress: improved, pain not gone completely, re-examined Progress Note: 08/10/24 12:56 33-year-old is evaluated in the ER for lower abdominal pain with UTI symptoms for the last 4 days. Patient is given fluids and symptomatic treatment for pain, on reevaluation her pain is better but not completely resolved. Workup showed normal white count, chemistries fairly unremarkable. CT abdomen pelvis is negative for any acute intra-abdominal pelvic findings. Patient does have UTI. She is given a dose of Rocephin. Will continue with cefpodoxime to go home along with Azo's and outpatient primary care follow-up recommended. Discussed signs symptoms of worsening needing return to ER which she seems under standing. Stable for discharge. Counseled pt/family regarding: lab results, diagnosis, need for follow-up, rad results Medical Desision Making - Diagnostic Testing Diagnostic test were ordered, analyzed, and reviewed by me: Yes Radiological Interpretation: Reviewed by me - Risk of complications The pt has a mod risk of morbidity or mortality based on: Need for prescription drug management - Departure Departure Disposition: Home Clinical Impression: Acute UTI (urinary tract infection), Lower abdominal pain Condition: Stable Critical Care Time: No Referrals: TIMA SANCHEZ MD [Primary Care Provider] - Follow up with PCP 1 day Instructions: Severe Abdominal Pain, Adult (DC) Additional Instructions: Take Tylenol/ibuprofen as needed. Follow-up with your primary care and [facility] for reevaluation. Return to ER for intractable pain, difficulty urination or if develop fever chills/flank pain etc. Prescriptions: Ibuprofen 600 mg PO Q6HPRN PRN 10 Days #20 tablet PRN Reason: Pain Cefpodoxime Proxetil 200 mg [Vantin 200 mg] 200 mg PO BID 7 Days #14 tablet
[2024-08-10 12:57] VITALS: RESP 18
[2024-08-10 13:01] VITALS: BP 138/84; PULSE 64; O2SAT 98
[2024-08-10] MEDS ORDERED: PYRIDIUM 200 MG ONE (13:01)
[2024-08-10] MEDS: PYRIDIUM 200 MG PO STA (13:02)
== END 2024-08-10 13:09 | disposition home or self-care (01) ==
LOC: ED 08:26
DX: N39.0 Urinary tract infection, site not specified (principal); R10.30 Lower abdominal pain, unspecified; R30.0 Dysuria; R35.0 Frequency of micturition; E11.9 Type 2 diabetes mellitus without complications; Z79.85 Long-term (current) use of injectable non-insulin antidiabetic drugs; Z79.899 Other long term (current) drug therapy
CPT/HCPCS: 36000; 36415; 74176; 80053; 81001; 81025; 82150; 83605; 83690; 85025; 87077; 87086; 87186; 87491; 87591; 96365; 96374; 96375; 99284; J0696; J2270; J2405; A9270-GY

== ENCOUNTER 2024-08-30 08:59 | Day surgery (SDC) | payer OTHER ==
[2024-08-30] MEDS ORDERED: Depo-Medrol 40 MG/ML IM ONE (09:00)
[2024-08-30] MEDS ORDERED: Sodium Chloride 0.9(Preservative Free) 10 ML IJ ONE (09:00)
[2024-08-30] MEDS ORDERED: DIPRIVAN 200 MG/20 ML IV ONE (11:09)
[2024-08-30] MEDS ORDERED: MORPHINE SULFATE 2 MG INJ ONE (11:29)
--- NOTE | 2024-08-30 11:50 | XRAY ---
Indication: Caudal CONSTANCE. Intraoperative fluoroscopy provided for 15 seconds. 4 digital spot images submitted for interpretation demonstrates caudal needle tip projecting mid sacrum. Small amount of contrast injected for needle tip placement. Correlate with intraoperative findings/report.
--- NOTE | 2024-08-30 12:10 | XRAY ---
15 seconds of fluoroscopy was used in surgery for a caudal CONSTANCE.
== END 2024-08-30 11:56 | disposition home or self-care (01) ==
LOC: SDC-PAIN 08:59
PROVIDERS: ATTEND Psychiatry & Neurology Pain Medicine
DX: M54.16 Radiculopathy, lumbar region (principal); E11.9 Type 2 diabetes mellitus without complications
CPT/HCPCS: 62323; 72220; 77003; 82947; J2270; J2704; Q9966

== ENCOUNTER 2024-09-21 19:30 | Emergency (ER) | payer OTHER ==
[2024-09-21 19:44] VITALS: TEMP 97.8
[2024-09-21 20:18] LABS: Absolute Neutrophil Ct (ANC) 3.33 x10^3/uL (1.56-6.13); BASOPHIL % 0.4 % (0.1-1.2); Basophil (Absolute #) 0.02 x10^3/uL (0.01-0.08); Eosinophil (Absolute #) 0.05 x10^3/uL (0.04-0.36); Hematocrit 40.2 % (34.1-44.9); IMMATURE GRAN # 0.02 x10^3u/L (0.001-0.031); IMMATURE GRAN % 0.4 % (0.001-0.429); Lymphocytes % 24.4 % (19.3-51.7); Mean Cell Volume 80.4 fL (79.4-94.8); Mean Corpuscular Hgb Concent. 34.8 g/dL (32.2-35.5); Mean Platelet Volume 10.3 fL (9.4-12.3); Monocyte (Absolute #) 0.29 x10^3/uL (0.24-0.86); Monocytes % 5.9 % (4.7-12.5); Neutrophil % 67.9 % (34.0-71.1); Platelet Count 210 x10^3/uL (182-369); Red Cell Distribution Width 12.6 % (11.7-14.4); White Blood Count 4.9 x10^3/uL (3.98-10.04)
[2024-09-21 20:24] LABS: ALBUMIN 4.2 g/dL (3.5-5.0); ANION GAP 14.5 MEQ/L (5-15); BILIRUBIN,TOTAL 0.4 mg/dL (0.2-1.3); Calcium 9.2 mg/dL (8.4-10.2); Creatinine 1 0.71 mg/dL (0.52-1.04); EST GLOMERULAR FILTRATION RATE 114.4 ML/MIN; Total Protein 7.2 g/dL (6.3-8.2)
--- NOTE | 2024-09-21 20:36 | ERPHSYRPT ---
- History of Present Illness Time Seen by Provider: 09/21/24 19:34 Historian: patient Exam Limitations: no limitations Patient Subjective Stated Complaint: pt states she has been having chest pain and palpitations since yesterday Triage Nursing Assessment: pt alert and oriented, answers questions approp. pt ambulates into room iwth steady gait noted. respriations nonlabored. skin warm and dry. heart rate 80 on monitor, steady gait noted. Physician History: 34-year-old female with history of anxiety, palpitations, hypokalemia presented in the ER with complaints of chest pain across since yesterday. Patient also re port having some palpitations. Patient was seen outpatient and has workup done yesterday including CTA chest which turns out to be negative. Patient reports she got a call from her primary care for critical low potassium which I checked it was 3.1. Patient reports she cannot tolerate oral potassium and needs some IV replacement. Patient was very anxious and hyperventilating initially, counseled and started to feel better. EKG is normal sinus rhythm with nonspecific T wave changes. No ST elevations. Aspirin Treatment Today: unknown Allergies/Adverse Reactions: ketorolac [From Toradol] Allergy (Severe, Verified 09/21/24 19:45) Hives latex Allergy (Severe, Verified 09/21/24 19:45) STOPPED BREATHING prochlorperazine [From Compazine] Allergy (Severe, Verified 09/21/24 19:45) Hives and shakes Influenza Virus Vaccines Allergy (Mild, Verified 09/21/24 19:45) headache vomiting levothyroxine sodium [From Synthroid] Allergy (Mild, Verified 09/21/24 19:45) Migranes methylphenidate [From Ritalin] Allergy (Verified 09/21/24 19:45) migranes metoclopramide [From Reglan] Allergy (Verified 09/21/24 19:45) aspirin Adverse Reaction (Mild, Verified 09/21/24 19:45) Vomiting medidate Adverse Reaction (Mild, Uncoded 09/21/24 19:45) VOMTIING Home Medications: Albuterol Common Canister [Ventolin Common Canister] 2 puff IH Q4H PRN 09/01/22 [History] Semaglutide [Ozempic] 2 mg SQ WEEKLY 03/22/23 [History] Famotidine 20 mg [Pepcid 20 MG] 1 tab PO DAILY 10/07/23 [History] Estradiol [Vivelle-Dot] 1 patch TOP UD 08/10/24 [History] Levothyroxine Sodium [Unithroid] 100 mcg PO DAILY 08/10/24 [History] Meloxicam 7.5 mg PO DAILY PRN PRN 08/10/24 [History] Gabapentin [Neurontin ] 300 mg PO BID 09/21/24 [History] Hx Tetanus, Diphtheria Vaccination/Date Given: Yes (2017) Hx Influenza Vaccination/Date Given: No Hx Pneumococcal Vaccination/Date Given: No Immunizations Up to Date: No Travel Risk - International Travel Have you traveled outside of the country in past 3 weeks: No - Emerging Infectious Disease Are you exhibiting symptoms associated with any current EIDs: No Symptoms: Abdominal Pain - Review of Systems Constitutional: No Symptoms Eyes: No Symptoms Ears, Nose, & Throat: No Symptoms Respiratory: No Symptoms Cardiac: Chest Pain, Palpitations Abdominal/Gastrointestinal: No Symptoms Genitourinary Symptoms: No Symptoms Musculoskeletal: No Symptoms Skin: No Symptoms Neurological: No Symptoms Psychological: Anxiety Endocrine: No Symptoms Hematologic/Lymphatic: No Symptoms - Past Medical History Pertinent Past Medical History: Yes Neurological History: Migraines ENT History: No Pertinent History Cardiac History: Other Respiratory History: Asthma Endocrine Medical History: Diabetes Type II, Hypothyroidism, Liver Disease Musculoskeletal History: Fibromyalgia GI Medical History: Gallbladder Disease History: No Pertinent History Psycho-Social History: Anxiety, Attention Deficit Disorder, Depression, Other Female Reproductive Disorders: Endometriosis Other Medical History: Pacemaker, x3, Hysterectomy (R Ovary retained), Cholecystectomy, L Cubital Tunnel Release - Past Surgical History Past Surgical History: Yes Neuro Surgical History: No Pertinent History Cardiac: Pacemaker Respiratory: No Pertinent History Gastrointestinal: Cholecystectomy Genitourinary: No Pertinent History Musculoskeletal: No Pertinent History Female Surgical History: Hysterectomy Other Surgical History: c section x3, left oopherectomy and tubal removal,. L oop crowell device (removed) Significant Family History: no pertinent family hx, cancer (colon/breast), diabetes, other (Gall bladder disease) - Female History Hx Last Menstrual Period: hyster Hx Now: No - Social History Smoking Status: Former smoker How long have you smoked: 8 years Exposure to second hand smoke: No Drug Use: none Patient Lives Alone: No - Social Determinants of Health Will the patient participate in the screening: Yes Do you worry about a steady place to live?: No Do you have any problems with any of the following?: No known problems In the past 12 months,have you had to go without utilities?: No Transportation Issues: No Has anyone in your support network made you feel unsafe?: No Have you or anyone in your house had to go without enough: No - Nursing Vital Signs Nursing Vital Signs: Initial Vital Signs Temperature 97.8 F 09/21/24 19:35 Pulse Rate 87 09/21/24 19:35 Respiratory Rate 20 09/21/24 19:35 Blood Pressure 137/97 09/21/24 19:35 O2 Sat by Pulse Oximetry 99 09/21/24 19:35 Pain Scale Pain Intensity 7 - Physical Exam General Appearance: no apparent distress, alert, anxiety Eye Exam: PERRL/EOMI Ears, Nose, Throat Exam: normal ENT inspection Neck Exam: normal inspection, non-tender, supple, full range of motion Respiratory Exam: normal breath sounds, lungs clear Cardiovascular Exam: regular rate/rhythm, normal heart sounds Gastrointestinal/Abdomen Exam: soft, No tenderness Back Exam: normal inspection Extremity Exam: normal inspection, normal range of motion Neurologic Exam: alert, oriented x 3, cooperative, [employer] 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 nml as tested, nml cerebellar function, nml station & gait, sensation nml, No normal mood/affect, No motor deficits Skin Exam: normal color SpO2 Interpretation: normal SpO2: 99 O2 Delivery: Room Air - Course EKG Interpreted by Me: RATE (81), Sinus Rhythm, NORMAL AXIS, NORMAL INTERVALS, NORMAL QRS, Other (nonspecific T wave changes) Ordered Tests: Active Orders 24 hr Category Date Time Status [employer] 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 STAT Care 09/21/24 20:13 Completed EKG-ER Only STAT Care 09/21/24 20:12 Completed IV Insertion STAT Care 09/21/24 20:12 Completed Telemetry q4h Care 09/21/24 20:28 Completed CHEST 2 VIEWS (PA AND LAT) Stat Exams 09/21/24 20:39 Taken CBC W DIFF Stat Lab 09/21/24 20:15 Completed CMP Stat Lab 09/21/24 20:15 Completed MAGNESIUM Stat Lab 09/21/24 20:15 Completed TROPONIN Q4H Lab 09/21/24 20:15 Completed TROPONIN Stat Lab 09/21/24 23:08 Completed Medication Summary Discontinued Medications Generic Name Dose Route Start Last Admin Trade Name Alis PRN Reason Stop Dose Admin Potassium Chloride 20 meq in 100 mls @ 50 mls/hr 09/21/24 20:28 09/21/24 20:59 Potassium Chloride 20 Meq In Water 100ml IV 09/21/24 22:27 50 mls/hr STAT ONE Administration Sodium Chloride 500 mls @ 50 mls/hr 09/21/24 20:45 09/21/24 20:57 Sodium Chloride 0.9% 500 Ml IV 10/21/24 20:44 50 mls/hr .Q10H JAH Administration Potassium Chloride Confirm 09/21/24 20:46 Potassium Chloride 20 Meq In Water 100ml Administered 09/21/24 20:47 Dose 100 mls @ ud IV .STK-MED ONE Sodium Chloride Confirm 09/21/24 20:47 Sodium Chloride 0.9% 500 Ml Administered 09/21/24 20:48 Dose 500 mls @ ud IV .STK-MED ONE Lorazepam 1 mg 09/21/24 22:45 09/21/24 22:54 Lorazepam 2 Mg/1 Ml 2 Mg Vial IV 09/21/24 22:46 1 mg STAT ONE Administration Lorazepam Confirm 09/21/24 22:53 Lorazepam 2 Mg/1 Ml 2 Mg Vial Administered 09/21/24 22:54 Dose 2 mg .ROUTE .STK-MED ONE Morphine Sulfate 4 mg 09/21/24 20:27 09/21/24 20:51 Morphine Sulfate 4 Mg/Ml Injection IV 09/21/24 20:28 4 mg STAT ONE Administration Morphine Sulfate Confirm 09/21/24 20:45 Morphine Sulfate 4 Mg/Ml Injection Administered 09/21/24 20:46 Dose 4 mg .ROUTE .STK-MED ONE Ondansetron HCl 4 mg 09/21/24 20:27 09/21/24 20:49 Ondansetron Hcl 4 Mg/2 Ml Vial IV 09/21/24 20:28 4 mg STAT ONE Administration Ondansetron HCl Confirm 09/21/24 20:45 Ondansetron Hcl 4 Mg/2 Ml Vial Administered 09/21/24 20:46 Dose 4 mg .ROUTE .STK-MED ONE Lab/Rad Data: Laboratory Result Diagrams 09/21/24 20:15 09/21/24 20:15 Laboratory Results 09/21/24 09/21/24 09/21/24 Range/Units 23:08 20:15 20:15 WBC (3.98-10.04) x10^3/uL RBC (3.93-5.22) x10^6/uL Hgb (11.2-15.7) g/dL Hct (34.1-44.9) % MCV (79.4-94.8) fL MCH (25.6-32.2) pg MCHC (32.2-35.5) g/dL RDW (11.7-14.4) % Plt Count (182-369) x10^3/uL MPV (9.4-12.3) fL Gran % (34.0-71.1) % Immature Gran % (Auto) (0.001-0.429) % Nucleat RBC Rel Count (0.00-0.2) % Eos # (Auto) (0.04-0.36) x10^3/uL Immature Gran # (Auto) (0.001-0.031) x10^3u/L Absolute Lymphs (auto) (1.18-3.74) x10^3/uL Absolute Monos (auto) (0.24-0.86) x10^3/uL Absolute Nucleated RBC (0.00-0.012) x10^3u/L Lymphocytes % (19.3-51.7) % Monocytes % (4.7-12.5) % Eosinophils % (0.7-5.8) % Basophils % (0.1-1.2) % Absolute Granulocytes (1.56-6.13) x10^3/uL Basophils # (0.01-0.08) x10^3/uL Sodium 138 (135-145) mmol/L Potassium 3.0 L* (3.5-5.1) mmol/L Chloride 109 H (98-107) mmol/L Carbon Dioxide 18 L (22-30) mmol/L Anion Gap 14.5 (5-15) MEQ/L BUN 7 (7-17) mg/dL Creatinine 0.71 (0.52-1.04) mg/dL Estimated GFR 114.4 ML/MIN Glucose 101 (74-106) mg/dL Calcium 9.2 (8.4-10.2) mg/dL Magnesium 2.0 (1.6-2.3) mg/dL Total Bilirubin 0.40 (0.2-1.3) mg/dL AST 31 (14-36) U/L ALT 27 (0-35) U/L Alkaline Phosphatase 40 (38-126) U/L Troponin I < 0.012 < 0.012 (0.000-0.033) ng/mL Serum Total Protein 7.2 (6.3-8.2) g/dL Albumin 4.2 (3.5-5.0) g/dL 09/21/24 Range/Units 20:15 WBC 4.9 (3.98-10.04) x10^3/uL RBC 5.00 (3.93-5.22) x10^6/uL Hgb 14.0 (11.2-15.7) g/dL Hct 40.2 (34.1-44.9) % MCV 80.4 (79.4-94.8) fL MCH 28.0 (25.6-32.2) pg MCHC 34.8 (32.2-35.5) g/dL RDW 12.6 (11.7-14.4) % Plt Count 210 (182-369) x10^3/uL MPV 10.3 (9.4-12.3) fL Gran % 67.9 (34.0-71.1) % Immature Gran % (Auto) 0.4 (0.001-0.429) % Nucleat RBC Rel Count 0.0 (0.00-0.2) % Eos # (Auto) 0.05 (0.04-0.36) x10^3/uL Immature Gran # (Auto) 0.02 (0.001-0.031) x10^3u/L Absolute Lymphs (auto) 1.20 (1.18-3.74) x10^3/uL Absolute Monos (auto) 0.29 (0.24-0.86) x10^3/uL Absolute Nucleated RBC 0.00 (0.00-0.012) x10^3u/L Lymphocytes % 24.4 (19.3-51.7) % Monocytes % 5.9 (4.7-12.5) % Eosinophils % 1.0 (0.7-5.8) % Basophils % 0.4 (0.1-1.2) % Absolute Granulocytes 3.33 (1.56-6.13) x10^3/uL Basophils # 0.02 (0.01-0.08) x10^3/uL Sodium (135-145) mmol/L Potassium (3.5-5.1) mmol/L Chloride (98-107) mmol/L Carbon Dioxide (22-30) mmol/L Anion Gap (5-15) MEQ/L BUN (7-17) mg/dL Creatinine (0.52-1.04) mg/dL Estimated GFR ML/MIN Glucose (74-106) mg/dL Calcium (8.4-10.2) mg/dL Magnesium (1.6-2.3) mg/dL Total Bilirubin (0.2-1.3) mg/dL AST (14-36) U/L ALT (0-35) U/L Alkaline Phosphatase (38-126) U/L Troponin I (0.000-0.033) ng/mL Serum Total Protein (6.3-8.2) g/dL Albumin (3.5-5.0) g/dL - Progress Progress: improved, re-examined Air Movement: good Progress Note: 09/21/24 23:59 34-year-old is evaluated in the ER for chest pain and palpitation with shortness of breath since yesterday. Patient EKG is normal sinus rhythm with no ST elevations. Patient has a CTA done yesterday which was negative. She has a negative troponins x 2. Chest x-ray negative for any acute cardiopulmonary findings reviewed by me. Patient has mildly low potassium at 3.0 Evelin is give n IV replacement. Patient was very anxious, given morphine and Ativan for symptomatic relief, on reevaluation her pain and anxiety is resolved. Patient is thoroughly counseled. Recommended outpatient follow-up. She is low heart score, do not think she needs to be admitted. Discussed signs symptoms of worsening needing return to ER which she seems understanding. Stable for discharge. Blood Culture(s) Obtained: No Antibiotics given: No Counseled pt/family regarding: lab results, diagnosis, need for follow-up, rad results Medical Desision Making - Diagnostic Testing Diagnostic test were ordered, analyzed, and reviewed by me: Yes Radiological Interpretation: Interpreted by me, Reviewed by me - Risk of complications The pt has a mod risk of morbidity or mortality based on: Need for prescription drug management - Departure Departure Disposition: Home Clinical Impression: Atypical chest pain, Anxiety, Hypokalemia Condition: Stable Critical Care Time: No Referrals: TIMA SANCHEZ MD [Primary Care Provider] - Follow up with PCP 1 day WILFREDO PORTER [CONSULTING PHYSICIAN] - Follow up/PCP as directed (call for appointment ) Instructions: Chest Pain (DC), High-potassium diet Additional Instructions: Take Tylenol as needed. Follow-up with primary care and cardiology for reevalu ation. Continue with your antianxiety medication. Take potassium sent to your pharmacy by your PCP and take high potassium diet. Return to ER for intractable chest pain, difficulty breathing etc.
[2024-09-21] MEDS ORDERED: Zofran 4 MG/2 ML VIAL ONE (20:45)
[2024-09-21] MEDS ORDERED: MORPHINE SULFATE 4 MG INJ ONE (20:45)
[2024-09-21] MEDS ORDERED: POTASSIUM CHLORIDE 20 mEq IN WATER 100ML 100 ML IV ONE (20:46)
[2024-09-21] MEDS ORDERED: Sodium Chloride 0.9% 500 ML 500 ML IV ONE (20:47)
[2024-09-21] MEDS: Zofran 4 MG/2 ML VIAL IV ONE (20:49)
[2024-09-21] MEDS: MORPHINE SULFATE 4 MG INJ IV ONE (20:51)
[2024-09-21] MEDS: Sodium Chloride 0.9% 500 ML 500 ML IV SCH (20:57)
[2024-09-21] MEDS: POTASSIUM CHLORIDE 20 mEq IN WATER 100ML 20 MEQ/100 ML BAG IV ONE (20:59)
[2024-09-21] MEDS ORDERED: Ativan 2 MG/1 ML VIAL ONE (22:53)
[2024-09-21] MEDS: Ativan 2 MG/1 ML VIAL IV ONE (22:54)
[2024-09-21 23:44] VITALS: BP 112/68; PULSE 63; RESP 18
[2024-09-21 23:52] VITALS: O2SAT 99
--- NOTE | 2024-09-22 09:30 | XRAY ---
Indication: Chest pain. Comparison: July 26, 2023 PA/lateral chest again demonstrates normal heart and lungs with incidental left dual-lead pacemaker. Bony thorax intact with minimal double curvature scoliosis. No acute findings.
== END 2024-09-21 23:56 | disposition home or self-care (01) ==
LOC: ED 19:30
DX: R07.89 Other chest pain (principal); F41.9 Anxiety disorder, unspecified; E87.6 Hypokalemia; E11.9 Type 2 diabetes mellitus without complications; Z79.85 Long-term (current) use of injectable non-insulin antidiabetic drugs; Z79.899 Other long term (current) drug therapy
CPT/HCPCS: 36415; 71046; 80053; 83735; 84484; 85025; 93005; 93041; 96374; 96375; 99284; 99285; J2060; J2270; J2405; J3480

== ENCOUNTER 2024-09-24 14:53 | Emergency (ER) | payer OTHER ==
[2024-09-24 15:03] VITALS: TEMP 98.7; O2SAT 99
--- NOTE | 2024-09-24 15:28 | ERPHSYRPT ---
- History of Present Illness Time Seen by Provider: 09/24/24 15:02 Historian: patient, family Exam Limitations: no limitations Patient Subjective Stated Complaint: Pt c/o of left sided chest pain, pt has a pacemaker, pt states that she is on potassium pills and her body doesn't absorb the pills and then she ends up having pain and problems Triage Nursing Assessment: Pt brought to the ER by her mother, hypertensive, rates pain as 6/10, pulses normal, skin n/w/d, no difficulty breathing, walked into the ER with a stable gait, nausea, denies vomiting, doesn't appear to be in any distress Physician History: 34-year-old female with history of sick sinus syndrome's status post pacemaker placement, hypokalemia, anxiety presented in the ER with complaints of chest pain since morning. Patient was evaluated on 09/21 in this ER with negative workup. Potassium was 3.0 and was given replacement. Patient reports she gets chest pains and palpitations whenever she has a low potassium. She had a CTA chest done few days ago as well which was negative. Denies any difficulty breathing. Patient is very anxious and tearful while talking. No history of coronary artery disease. Patient reports she called Dr. Alonso cardiology who recommended to be seen in the ER for hypokalemia. Aspirin Treatment Today: no aspirin today (Allergic to aspirin) Allergies/Adverse Reactions: ketorolac [From Toradol] Allergy (Severe, Verified 09/24/24 15:03) Hives latex Allergy (Severe, Verified 09/24/24 15:03) STOPPED BREATHING prochlorperazine [From Compazine] Allergy (Severe, Verified 09/24/24 15:03) Hives and shakes Influenza Virus Vaccines Allergy (Mild, Verified 09/24/24 15:03) headache vomiting levothyroxine sodium [From Synthroid] Allergy (Mild, Verified 09/24/24 15:03) Migranes methylphenidate [From Ritalin] Allergy (Verified 09/24/24 15:03) migranes metoclopramide [From Reglan] Allergy (Verified 09/24/24 15:03) aspirin Adverse Reaction (Mild, Verified 09/24/24 15:03) Vomiting medidate Adverse Reaction (Mild, Uncoded 09/24/24 15:03) VOMTIING Home Medications: Albuterol Common Canister [Ventolin Common Canister] 2 puff IH Q4H PRN 09/01/22 [History] Semaglutide [Ozempic] 2 mg SQ WEEKLY 03/22/23 [History] Famotidine 20 mg [Pepcid 20 MG] 20 mg PO DAILY 10/07/23 [History] Estradiol [Vivelle-Dot] 1 patch TOP UD 08/10/24 [History] Levothyroxine Sodium [Unithroid] 50 mcg PO DAILY 08/10/24 [History] Meloxicam 7.5 mg PO DAILY PRN PRN 08/10/24 [History] Gabapentin [Neurontin ] 300 mg PO BID 09/21/24 [History] Potassium Chloride [Klor-Con M10] 10 meq PO DAILY 09/24/24 [History] Sertraline HCl [Zoloft] 25 mg PO DAILY 09/24/24 [History] Hx Tetanus, Diphtheria Vaccination/Date Given: Yes (2017) Hx Influenza Vaccination/Date Given: No Hx Pneumococcal Vaccination/Date Given: No Travel Risk - International Travel Have you traveled outside of the country in past 3 weeks: No - Emerging Infectious Disease Are you exhibiting symptoms associated with any current EIDs: No Symptoms: Abdominal Pain - Review of Systems Constitutional: No Symptoms Eyes: No Symptoms Ears, Nose, & Throat: No Symptoms Respiratory: No Symptoms Cardiac: Chest Pain, Palpitations Abdominal/Gastrointestinal: No Symptoms Genitourinary Symptoms: No Symptoms Musculoskeletal: No Symptoms Skin: No Symptoms Neurological: No Symptoms Psychological: Anxiety Endocrine: No Symptoms Hematologic/Lymphatic: No Symptoms - Past Medical History Pertinent Past Medical History: Yes Neurological History: Migraines ENT History: No Pertinent History Cardiac History: Other Respiratory History: Asthma Endocrine Medical History: Diabetes Type II, Hypothyroidism, Liver Disease Musculoskeletal History: Fibromyalgia GI Medical History: Gallbladder Disease History: No Pertinent History Psycho-Social History: Anxiety, Attention Deficit Disorder, Depression, Other Female Reproductive Disorders: Endometriosis Other Medical History: Pacemaker, x3, Hysterectomy (R Ovary retained), Cholecystectomy, L Cubital Tunnel Release - Past Surgical History Past Surgical History: Yes Neuro Surgical History: No Pertinent History Cardiac: Pacemaker Respiratory: No Pertinent History Gastrointestinal: Cholecystectomy Genitourinary: No Pertinent History Musculoskeletal: No Pertinent History Female Surgical History: Hysterectomy Other Surgical History: c section x3, left oopherectomy and tubal removal,. Loop crowell device (removed) Significant Family History: no pertinent family hx, cancer (colon/breast), diabetes, other (Gall bladder disease) - Female History Hx Last Menstrual Period: hysterectomy Hx Now: (unkn) - Social History Smoking Status: Former smoker How long have you smoked: vapes Exposure to second hand smoke: No Drug Use: marijuana Patient Lives Alone: No - Social Determinants of Health Will the patient participate in the screening: Yes Do you worry about a steady place to live?: No Do you have any problems with any of the following?: No known problems In the past 12 months,have you had to go without utilities?: No Transportation Issues: No Has anyone in your support network made you feel unsafe?: No Have you or anyone in your house had to go without enough: No - Nursing Vital Signs Nursing Vital Signs: Initial Vital Signs Temperature 98.7 F 09/24/24 14:55 Pulse Rate 74 09/24/24 14:55 Blood Pressure 140/108 09/24/24 14:55 O2 Sat by Pulse Oximetry 99 09/24/24 14:55 Pain Scale Pain Intensity 6 - Physical Exam General Appearance: no apparent distress, alert, anxiety Eye Exam: PERRL/EOMI Ears, Nose, Throat Exam: normal ENT inspection Neck Exam: normal inspection, non-tender, supple, full range of motion Respiratory Exam: normal breath sounds, lungs clear Cardiovascular Exam: regular rate/rhythm, normal heart sounds Gastrointestinal/Abdomen Exam: soft, normal bowel sounds, No tenderness Back Exam: normal inspection, normal range of motion Neurologic Exam: alert, oriented x 3, cooperative, paginator II-XII nml as tested, sensation nml, No normal mood/affect, No motor deficits Skin Exam: normal color SpO2 Interpretation: normal SpO2: 99 O2 Delivery: Room Air - Course EKG Interpreted by Me: RATE (76), Sinus Rhythm, NORMAL AXIS, NORMAL INTERVALS, Other (Nonspecific T wave changes.) Ordered Tests: Active Orders 24 hr Category Date Time Status CHEST 1 VIEW (PORTABLE) Stat Exams 09/24/24 15:23 Completed CBC W DIFF Stat Lab 09/24/24 15:25 Completed CMP Stat Lab 09/24/24 15:25 Completed HCG QUALITATIVE, URINE Stat Lab 09/24/24 15:25 Completed MAG [MAGNESIUM] Stat Lab 09/24/24 15:25 Completed NT PRO BNPII Stat Lab 09/24/24 15:25 Completed TROPONIN Q4H Lab 09/24/24 15:25 Completed Medication Summary Discontinued Medications Generic Name Dose Route Start Last Admin Trade Name Freq PRN Reason Stop Dose Admin Ondansetron HCl 12 mg 09/24/24 17:23 09/24/24 17:28 Zofran 4 Mg/Udtablet Orally Disintegrating PO 09/24/24 17:24 12 mg STAT ONE Administration Ondansetron HCl Confirm 09/24/24 17:25 Zofran 4 Mg/Udtablet Orally Disintegrating Administered 09/24/24 17:26 Dose 12 mg .ROUTE .STK-MED ONE Lab/Rad Data: Laboratory Result Diagrams 09/24/24 15:25 09/24/24 15:25 Laboratory Results 09/24/24 09/24/24 09/24/24 Range/Units 15:25 15:25 15:25 WBC (3.98-10.04) x10^3/uL RBC (3.93-5.22) x10^6/uL Hgb (11.2-15.7) g/dL Hct (34.1-44.9) % MCV (79.4-94.8) fL MCH (25.6-32.2) pg MCHC (32.2-35.5) g/dL RDW (11.7-14.4) % Plt Count (182-369) x10^3/uL MPV (9.4-12.3) fL Gran % (34.0-71.1) % Immature Gran % (Auto) (0.001-0.429) % Nucleat RBC Rel Count (0.00-0.2) % Eos # (Auto) (0.04-0.36) x10^3/uL Immature Gran # (Auto) (0.001-0.031) x10^3u/L Absolute Lymphs (auto) (1.18-3.74) x10^3/uL Absolute Monos (auto) (0.24-0.86) x10^3/uL Absolute Nucleated RBC (0.00-0.012) x10^3u/L Lymphocytes % (19.3-51.7) % Monocytes % (4.7-12.5) % Eosinophils % (0.7-5.8) % Basophils % (0.1-1.2) % Absolute Granulocytes (1.56-6.13) x10^3/uL Basophils # (0.01-0.08) x10^3/uL Sodium (135-145) mmol/L Potassium (3.5-5.1) mmol/L Chloride (98-107) mmol/L Carbon Dioxide (22-30) mmol/L Anion Gap (5-15) MEQ/L BUN (7-17) mg/dL Creatinine (0.52-1.04) mg/dL Estimated GFR ML/MIN Glucose (74-106) mg/dL Calcium (8.4-10.2) mg/dL Magnesium (1.6-2.3) mg/dL Total Bilirubin (0.2-1.3) mg/dL AST (14-36) U/L ALT (0-35) U/L Alkaline Phosphatase (38-126) U/L Troponin I < 0.012 (0.000-0.033) ng/mL NT-Pro-B Natriuret Pep 39.1 (<300) pg/mL Serum Total Protein (6.3-8.2) g/dL Albumin (3.5-5.0) g/dL Urine HCG, Qual NEGATIVE (NEGATIVE) 09/24/24 09/24/24 Range/Units 15:25 15:25 WBC 4.4 (3.98-10.04) x10^3/uL RBC 4.84 (3.93-5.22) x10^6/uL Hgb 13.4 (11.2-15.7) g/dL Hct 39.5 (34.1-44.9) % MCV 81.6 (79.4-94.8) fL MCH 27.7 (25.6-32.2) pg MCHC 33.9 (32.2-35.5) g/dL RDW 12.6 (11.7-14.4) % Plt Count 219 (182-369) x10^3/uL MPV 10.2 (9.4-12.3) fL Gran % 56.5 (34.0-71.1) % Immature Gran % (Auto) 0.2 (0.001-0.429) % Nucleat RBC Rel Count 0.0 (0.00-0.2) % Eos # (Auto) 0.07 (0.04-0.36) x10^3/uL Immature Gran # (Auto) 0.01 (0.001-0.031) x10^3u/L Absolute Lymphs (auto) 1.62 (1.18-3.74) x10^3/uL Absolute Monos (auto) 0.20 L (0.24-0.86) x10^3/uL Absolute Nucleated RBC 0.00 (0.00-0.012) x10^3u/L Lymphocytes % 36.9 (19.3-51.7) % Monocytes % 4.6 L (4.7-12.5) % Eosinophils % 1.6 (0.7-5.8) % Basophils % 0.2 (0.1-1.2) % Absolute Granulocytes 2.48 (1.56-6.13) x10^3/uL Basophils # 0.01 (0.01-0.08) x10^3/uL Sodium 139 (135-145) mmol/L Potassium 3.4 L (3.5-5.1) mmol/L Chloride 110 H (98-107) mmol/L Carbon Dioxide 20 L (22-30) mmol/L Anion Gap 12.5 (5-15) MEQ/L BUN 6 L (7-17) mg/dL Creatinine 0.75 (0.52-1.04) mg/dL Estimated GFR 107.1 ML/MIN Glucose 84 (74-106) mg/dL Calcium 9.3 (8.4-10.2) mg/dL Magnesium 1.9 (1.6-2.3) mg/dL Total Bilirubin 0.50 (0.2-1.3) mg/dL AST 25 (14-36) U/L ALT 22 (0-35) U/L Alkaline Phosphatase 47 (38-126) U/L Troponin I (0.000-0.033) ng/mL NT-Pro-B Natriuret Pep (<300) pg/mL Serum Total Protein 6.7 (6.3-8.2) g/dL Albumin 4.0 (3.5-5.0) g/dL Urine HCG, Qual (NEGATIVE) - Progress Progress: re-examined Air Movement: good Progress Note: 09/24/24 17:50 34-year-old is evaluated in the ER for chest pain with palpitations and concern for hypokalemia. EKG showed sinus rhythm with nonspecific T wave changes. It is unchanged from previous EKG. Workup showed normal initial troponin. Potassium of 3.4 and magnesium of 1.9. Chest x-ray negative for any acute cardiopulmonary findings reviewed by me, official report is pending. Has normal white count. Patient was very anxious, I have thoroughly counseled her. Patient does not believe that her potassium is normal and thinks all that is going on is because of her low potassium. I have recommended second troponin but patient does not think she needs to stay for heart marker as she thinks it is all because of her electrolytes. She does not want to stay in the hospital and wants to leave AGAINST MEDICAL ADVICE. She is not confused or altered at all. Patient and her mom were involved in decision making. She signed AMA paperwork and walked out of the ER without residential real estate assistant in stable condition. Blood Culture(s) Obtained: No Antibiotics given: No Counseled pt/family regarding: lab results, diagnosis, rad results Medical Desision Making - Independent Historian Additional History obtained from: Mother - Diagnostic Testing Diagnostic test were ordered, analyzed, and reviewed by me: Yes Radiological Interpretation: Interpreted by me, Reviewed by me - Departure Departure Disposition: AMA Clinical Impression: Atypical chest pain Condition: Stable Critical Care Time: No Referrals: TIMA SANCHEZ MD [Primary Care Provider] - Follow up/PCP as directed
[2024-09-24 15:33] LABS: Absolute Neutrophil Ct (ANC) 2.48 x10^3/uL (1.56-6.13); BASOPHIL % 0.2 % (0.1-1.2); Basophil (Absolute #) 0.01 x10^3/uL (0.01-0.08); Eosinophil % 1.6 % (0.7-5.8); Eosinophil (Absolute #) 0.07 x10^3/uL (0.04-0.36); Hematocrit 39.5 % (34.1-44.9); Hemoglobin 13.4 g/dL (11.2-15.7); IMMATURE GRAN # 0.01 x10^3u/L (0.001-0.031); IMMATURE GRAN % 0.2 % (0.001-0.429); Lymphocyte (Absolute #) 1.62 x10^3/uL (1.18-3.74); Lymphocytes % 36.9 % (19.3-51.7); Mean Cell Volume 81.6 fL (79.4-94.8); Mean Corpuscular Hemoglobin 27.7 pg (25.6-32.2); Mean Corpuscular Hgb Concent. 33.9 g/dL (32.2-35.5); Mean Platelet Volume 10.2 fL (9.4-12.3); Monocytes % 4.6 % (4.7-12.5); Neutrophil % 56.5 % (34.0-71.1); Platelet Count 219 x10^3/uL (182-369); Red Blood Count 4.84 x10^6/uL (3.93-5.22); Red Cell Distribution Width 12.6 % (11.7-14.4); White Blood Count 4.4 x10^3/uL (3.98-10.04)
[2024-09-24 15:52] LABS: ANION GAP 12.5 MEQ/L (5-15); BILIRUBIN,TOTAL 0.5 mg/dL (0.2-1.3); Calcium 9.3 mg/dL (8.4-10.2); Creatinine 1 0.75 mg/dL (0.52-1.04); EST GLOMERULAR FILTRATION RATE 107.1 ML/MIN; MAGNESIUM 1.9 mg/dL (1.6-2.3); Potassium 3.4 mmol/L (3.5-5.1); Total Protein 6.7 g/dL (6.3-8.2)
[2024-09-24 16:00] LABS: HCG URINE TEST NEGATIVE (NEGATIVE)
[2024-09-24] MEDS ORDERED: ZOFRAN ODT 4 MG ONE (17:25)
[2024-09-24] MEDS: ZOFRAN ODT 4 MG PO ONE (17:28)
[2024-09-24 17:31] VITALS: BP 145/90; PULSE 66; RESP 18
--- NOTE | 2024-09-24 19:34 | XRAY ---
Indication: Chest pain. Comparison: September 21, 2024 Portable chest again demonstrates normal heart and lungs with left pacemaker. No new/acute findings.
== END 2024-09-24 17:30 | disposition left against medical advice (07) ==
LOC: ED 14:53
DX: R07.89 Other chest pain (principal); E11.9 Type 2 diabetes mellitus without complications; Z79.85 Long-term (current) use of injectable non-insulin antidiabetic drugs; Z79.899 Other long term (current) drug therapy
CPT/HCPCS: 36415; 71045; 80053; 81025; 83735; 83880; 84484; 85025; 99283; 99284; Q0162

== ENCOUNTER 2024-09-27 15:29 | Emergency (ER) | payer OTHER ==
[2024-09-27 15:51] VITALS: TEMP 98.2
--- NOTE | 2024-09-27 16:08 | ERPHSYRPT ---
- History of Present Illness Time Seen by Provider: 09/27/24 15:50 Source: patient Exam Limitations: no limitations Patient Subjective Stated Complaint: c/o of flank pain Triage Nursing Assessment: patient brought to ED by with c/o of flank pain and UTI. Dr. Salazar requested she be seen by ER. Patient is complaining of 8/10 flank pain that radiated to the front. Patient is slightly hypertensive, has a history of sepsis froma pervious UTI. gait steady, pulses normal, skin w/n/d, pt doesn't appear to be in any distress at this time. Physician History: This is an obese 34-year-old white female patient who arrives by private vehicle and is a patient of Dr. Sanchez as well as examining officer Dr. Salazar. Patient states that her examining officer saw her today and he recommended that she come to the emergency department since the patient has suprapubic discomfort and flank pain. She has a history of having urosepsis in the past. Per patient report, the patient was told she has a urinary tract infection. However, I do not have access to the examining officer office records or lab results. The symptoms, according to the patient began on 09/24/2024. There is no mention of the symptoms on the emergency room department visit dated 09/24/2024. Patient is very anxious and tearful. Patient has had a hysterectomy. She denies fevers. She denies chest pain. She denies shortness of breath Timing/Duration: day(s) (3) Activites at Onset: none Quality: sharpness Onset Location: suprapubic (Mild), generalized flank Severity of Pain-Max: moderate Severity of Pain-Current: moderate Sexual intercourse history: non-contributory Associated Symptoms: urinary frequency, lower back pain, No abdominal pain, No fever, No chills, No dysuria, No Allergies/Adverse Reactions: ketorolac [From Toradol] Allergy (Severe, Verified 09/27/24 15:51) Hives latex Allergy (Severe, Verified 09/27/24 15:51) STOPPED BREATHING prochlorperazine [From Compazine] Allergy (Severe, Verified 09/27/24 15:51) Hives and shakes Influenza Virus Vaccines Allergy (Mild, Verified 09/27/24 15:51) headache vomiting levothyroxine sodium [From Synthroid] Allergy (Mild, Verified 09/27/24 15:51) Migranes methylphenidate [From Ritalin] Allergy (Verified 09/27/24 15:51) migranes metoclopramide [From Reglan] Allergy (Verified 09/27/24 15:51) aspirin Adverse Reaction (Mild, Verified 09/27/24 15:51) Vomiting medidate Adverse Reaction (Mild, Uncoded 09/27/24 15:51) VOMTIING Home Medications: Albuterol Common Canister [Ventolin Common Canister] 2 puff IH Q4H PRN 09/01/22 [History] Semaglutide [Ozempic] 1 mg SQ WEEKLY 03/22/23 [History] Famotidine 20 mg [Pepcid 20 MG] 20 mg PO DAILY 10/07/23 [History] Estradiol [Vivelle-Dot] 1 patch TOP UD 08/10/24 [History] Levothyroxine Sodium [Unithroid] 50 mcg PO DAILY 08/10/24 [History] Meloxicam 7.5 mg PO DAILY PRN PRN 08/10/24 [History] Gabapentin [Neurontin ] 300 mg PO BID 09/21/24 [History] Potassium Chloride [Klor-Con M10] 10 meq PO DAILY 09/24/24 [History] Sertraline HCl [Zoloft] 25 mg PO DAILY 09/24/24 [History] Hx Tetanus, Diphtheria Vaccination/Date Given: Yes (2018) Hx Influenza Vaccination/Date Given: No (allergic) Hx Pneumococcal Vaccination/Date Given: No Travel Risk - International Travel Have you traveled outside of the country in past 3 weeks: No - Emerging Infectious Disease Are you exhibiting symptoms associated with any current EIDs: No Symptoms: Abdominal Pain - Review of Systems Constitutional: No Symptoms Eyes: No Symptoms Ears, Nose, & Throat: No Symptoms Respiratory: No Symptoms Cardiac: No Symptoms Abdominal/Gastrointestinal: Abdominal Pain (Mild suprapubic tenderness) Genitourinary Symptoms: Flank Pain (Generalized) Musculoskeletal: No Symptoms Skin: No Symptoms Neurological: No Symptoms Psychological: No Symptoms Endocrine: No Symptoms Hematologic/Lymphatic: No Symptoms Immunological/Allergic: No Symptoms All Other Systems: Reviewed and Negative - Past Medical History Pertinent Past Medical History: Yes Neurological History: Migraines ENT History: No Pertinent History Cardiac History: Other Respiratory History: Asthma Endocrine Medical History: Diabetes Type II, Hypothyroidism, Liver Disease Musculoskeletal History: Fibromyalgia GI Medical History: Gallbladder Disease History: No Pertinent History Psycho-Social History: Anxiety, Attention Deficit Disorder, Depression, Other Female Reproductive Disorders: Endometriosis Other Medical History: Pacemaker, x3, Hysterectomy (R Ovary retained), Cholecystectomy, L Cubital Tunnel Release, SEPSIS a year ago from UTI - Past Surgical History Past Surgical History: Yes Neuro Surgical History: No Pertinent History Cardiac: Pacemaker Respiratory: No Pertinent History Gastrointestinal: Cholecystectomy Genitourinary: No Pertinent History Musculoskeletal: No Pertinent History Female Surgical History: Hysterectomy Other Surgical History: c section x3, left oopherectomy and tubal removal,. Loop crowell device (removed) Significant Family History: no pertinent family hx, cancer (colon/breast), diabetes, other (Gall bladder disease) - Female History Hx Last Menstrual Period: hysterectomy Hx Now: No - Social History Smoking Status: Never smoker How long have you smoked: vapes Exposure to second hand smoke: No Drug Use: marijuana Patient Lives Alone: No - Social Determinants of Health Will the patient participate in the screening: Yes Do you worry about a steady place to live?: No Do you have any problems with any of the following?: No known problems In the past 12 months,have you had to go without utilities?: No Transportation Issues: No Has anyone in your support network made you feel unsafe?: No Have you or anyone in your house had to go without enough: No - Nursing Vital Signs Nursing Vital Signs: Initial Vital Signs Temperature 98.2 F 09/27/24 15:36 Pulse Rate 65 09/27/24 15:36 Respiratory Rate 19 09/27/24 15:36 Blood Pressure 158/81 09/27/24 15:36 O2 Sat by Pulse Oximetry 98 09/27/24 15:36 Pain Scale Pain Intensity 5 - Physical Exam General Appearance: no apparent distress, alert, anxiety, obese Eye Exam: PERRL/EOMI, eyes nml inspection Ears, Nose, Throat Exam: normal ENT inspection, moist mucous membranes Neck Exam: normal inspection, non-tender, supple, full range of motion Respiratory Exam: normal breath sounds, lungs clear, airway intact, No chest tenderness, No respiratory distress Cardiovascular Exam: regular rate/rhythm, normal heart sounds, normal peripheral pulses Gastrointestinal/Abdomen Exam: soft, normal bowel sounds, No tenderness, No guarding Pelvic Exam: not done Rectal Exam: not done Back Exam: normal inspection, normal range of motion, CVA tenderness (+/- Generalized), No vertebral tenderness, No point tenderness Neurologic Exam: alert, oriented x 3, cooperative, 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 nml as tested, nml cerebellar function, nml station & gait, sensation nml Skin Exam: normal color, warm, dry Lymphatic Exam: No adenopathy SpO2 Interpretation: normal SpO2: 99 O2 Delivery: Room Air - Course Nursing assessment & vital signs reviewed: Yes Ordered Tests: Active Orders 24 hr Category Date Time Status IV Insertion STAT Care 09/27/24 16:08 Active ABDOMEN AND PELVIS W/0 CONTRAS [CT] Stat Exams 09/27/24 17:09 Taken BLOOD CULTURE Stat Lab 09/27/24 16:30 Received CBC W DIFF Stat Lab 09/27/24 16:25 Completed CMP Stat Lab 09/27/24 16:25 Completed CULTURE,URINE Stat Lab 09/27/24 16:22 Received Lactic Acid Stat Lab 09/27/24 16:25 Completed MAG [MAGNESIUM] Stat Lab 09/27/24 16:25 Completed UA W/RFX UR CULTURE Stat Lab 09/27/24 16:22 Completed Medication Summary Discontinued Medications Generic Name Dose Route Start Last Admin Trade Name Alis PRN Reason Stop Dose Admin Hydromorphone HCl 1 mg 09/27/24 16:08 09/27/24 16:34 Hydromorphone 1 Mg/1ml Inj IV 09/27/24 16:09 1 mg STAT ONE Administration Hydromorphone HCl Confirm 09/27/24 16:30 Hydromorphone 1 Mg/1ml Inj Administered 09/27/24 16:31 Dose 1 mg .ROUTE .STK-MED ONE Sodium Chloride 1,000 mls @ 999 mls/hr 09/27/24 16:08 09/27/24 17:35 Sodium Chloride 0.9% 1000 Ml IV 09/27/24 17:08 Infused .Q1H1M STA Infusion Sodium Chloride Confirm 09/27/24 16:30 Sodium Chloride 0.9% 1000 Ml Administered 09/27/24 16:31 Dose 1,000 mls @ ud .ROUTE .STK-MED ONE Ceftriaxone Sodium 1 gm in 100 mls @ 200 mls/hr 09/27/24 17:12 09/27/24 18:21 Rocephin 1 Gm / 100 Ml Nacl IV 09/27/24 17:41 Infused STAT ONE Infusion Ceftriaxone Sodium Confirm 09/27/24 17:20 Rocephin 1 Gm / 100 Ml Nacl Administered 09/27/24 17:21 Dose 1 gm in 100 mls @ ud IV .STK-MED ONE Levofloxacin 500 mg 09/27/24 17:12 09/27/24 17:21 Levofloxacin 500 Mg Tablet PO 09/27/24 17:13 500 mg STAT ONE Administration Levofloxacin Confirm 09/27/24 17:20 Levofloxacin 500 Mg Tablet Administered 09/27/24 17:21 Dose 500 mg .ROUTE .STK-MED ONE Ondansetron HCl 4 mg 09/27/24 16:08 09/27/24 16:33 Ondansetron Hcl 4 Mg/2 Ml Vial IV 09/27/24 16:09 4 mg STAT ONE Administration Ondansetron HCl Confirm 09/27/24 16:29 Ondansetron Hcl 4 Mg/2 Ml Vial Administered 09/27/24 16:30 Dose 4 mg .ROUTE .STK-MED ONE Lab/Rad Data: Laboratory Result Diagrams 09/27/24 16:25 09/27/24 16:25 Laboratory Results 09/27/24 09/27/24 09/27/24 Range/Units 16:25 16:25 16:25 WBC (3.98-10.04) x10^3/uL RBC (3.93-5.22) x10^6/uL Hgb (11.2-15.7) g/dL Hct (34.1-44.9) % MCV (79.4-94.8) fL MCH (25.6-32.2) pg MCHC (32.2-35.5) g/dL RDW (11.7-14.4) % Plt Count (182-369) x10^3/uL MPV (9.4-12.3) fL Gran % (34.0-71.1) % Immature Gran % (Auto) (0.001-0.429) % Nucleat RBC Rel Count (0.00-0.2) % Eos # (Auto) (0.04-0.36) x10^3/uL Immature Gran # (Auto) (0.001-0.031) x10^3u/L Absolute Lymphs (auto) (1.18-3.74) x10^3/uL Absolute Monos (auto) (0.24-0.86) x10^3/uL Absolute Nucleated RBC (0.00-0.012) x10^3u/L Lymphocytes % (19.3-51.7) % Monocytes % (4.7-12.5) % Eosinophils % (0.7-5.8) % Basophils % (0.1-1.2) % Absolute Granulocytes (1.56-6.13) x10^3/uL Basophils # (0.01-0.08) x10^3/uL Sodium 140 (135-145) mmol/L Potassium 3.6 (3.5-5.1) mmol/L Chloride 110 H (98-107) mmol/L Carbon Dioxide 20 L (22-30) mmol/L Anion Gap 13.9 (5-15) MEQ/L BUN 10 (7-17) mg/dL Creatinine 0.81 (0.52-1.04) mg/dL Estimated GFR 97.6 ML/MIN Glucose 70 L (74-106) mg/dL Lactic Acid 0.9 (0.4-2.0) Calcium 9.0 (8.4-10.2) mg/dL Magnesium 2.2 (1.6-2.3) mg/dL Total Bilirubin 0.30 (0.2-1.3) mg/dL AST 23 (14-36) U/L ALT 20 (0-35) U/L Alkaline Phosphatase 46 (38-126) U/L Serum Total Protein 6.5 (6.3-8.2) g/dL Albumin 4.0 (3.5-5.0) g/dL Urine Color (Yellow) Urine Appearance (Clear) Urine pH (4.6-8.0) Ur Specific [place] (1.005-1.030) Urine Protein (Negative) Urine Glucose (UA) (Negative) mg/dL Urine Ketones (Negative) Urine Blood (Negative) Urine Nitrite (Negative) Urine Bilirubin (Negative) Urine Urobilinogen (0.2) mg/dL Ur Leukocyte Esterase (Negative) U Hyaline Cast (Auto) (0-2) /LPF Urine Microscopic RBC (0-5) /HPF Urine Microscopic WBC (0-5) /HPF Ur Epithelial Cells (None Seen) /HPF Urine Bacteria (None Seen) /HPF Urine Culture Reflexed (NO) 09/27/24 09/27/24 Range/Units 16:25 16:22 WBC 5.6 (3.98-10.04) x10^3/uL RBC 5.05 (3.93-5.22) x10^6/uL Hgb 14.0 (11.2-15.7) g/dL Hct 41.3 (34.1-44.9) % MCV 81.8 (79.4-94.8) fL MCH 27.7 (25.6-32.2) pg MCHC 33.9 (32.2-35.5) g/dL RDW 12.7 (11.7-14.4) % Plt Count 216 (182-369) x10^3/uL MPV 10.0 (9.4-12.3) fL Gran % 75.2 H (34.0-71.1) % Immature Gran % (Auto) 0.2 (0.001-0.429) % Nucleat RBC Rel Count 0.0 (0.00-0.2) % Eos # (Auto) 0.02 L (0.04-0.36) x10^3/uL Immature Gran # (Auto) 0.01 (0.001-0.031) x10^3u/L Absolute Lymphs (auto) 1.04 L (1.18-3.74) x10^3/uL Absolute Monos (auto) 0.31 (0.24-0.86) x10^3/uL Absolute Nucleated RBC 0.00 (0.00-0.012) x10^3u/L Lymphocytes % 18.5 L (19.3-51.7) % Monocytes % 5.5 (4.7-12.5) % Eosinophils % 0.4 L (0.7-5.8) % Basophils % 0.2 (0.1-1.2) % Absolute Granulocytes 4.23 (1.56-6.13) x10^3/uL Basophils # 0.01 (0.01-0.08) x10^3/uL Sodium (135-145) mmol/L Potassium (3.5-5.1) mmol/L Chloride (98-107) mmol/L Carbon Dioxide (22-30) mmol/L Anion Gap (5-15) MEQ/L BUN (7-17) mg/dL Creatinine (0.52-1.04) mg/dL Estimated GFR ML/MIN Glucose (74-106) mg/dL Lactic Acid (0.4-2.0) Calcium (8.4-10.2) mg/dL Magnesium (1.6-2.3) mg/dL Total Bilirubin (0.2-1.3) mg/dL AST (14-36) U/L ALT (0-35) U/L Alkaline Phosphatase (38-126) U/L Serum Total Protein (6.3-8.2) g/dL Albumin (3.5-5.0) g/dL Urine Color Yellow (Yellow) Urine Appearance Cloudy A (Clear) Urine pH 6.5 (4.6-8.0) Ur Specific [place] >=1.030 A (1.005-1.030) Urine Protein 30 (Negative) Urine Glucose (UA) Negative (Negative) mg/dL Urine Ketones Trace A (Negative) Urine Blood Moderate A (Negative) Urine Nitrite Negative (Negative) Urine Bilirubin Negative (Negative) Urine Urobilinogen 1.0 A (0.2) mg/dL Ur Leukocyte Esterase Large A (Negative) U Hyaline Cast (Auto) NONE SEEN (0-2) /LPF Urine Microscopic RBC 51-100 A (0-5) /HPF Urine Microscopic WBC >100 A (0-5) /HPF Ur Epithelial Cells Few (None Seen) /HPF Urine Bacteria Few A (None Seen) /HPF Urine Culture Reflexed YES (NO) - Progress Progress: improved, re-examined Air Movement: good Progress Note: 09/27/24 16:35 My medical decision making and the assignment of moderate complexity to this patient's medical issue today is based on review of the patient's past medical history, review the patient's medication list, reviewed patient drug allergy list, history present illness and physical findings on examination. The workup in this patient includes placement of intravenous line, infusion of 1 L normal saline solution, infusion of Zofran and Dilaudid intravenously, CBC, CMP, lactic acid level, blood culture, urinalysis 09/27/24 17:10 Differential diagnosis includes but is not limited to anxiety about health, urinary tract infection, pyelonephritis, ureterolithiasis I interpreted the patient's laboratory data results. Based on the laboratory data results, the patient does have a significant urinary tract infection. We will order a CT scan of the abdomen pelvis to evaluate for pyelonephritis and ureterolithiasis. Based on the patient's vital signs (normal blood pressure, afebrile and normal heart rate), a normal lactic acid level, normal anion gap, normal white blood cell count the patient is not septic. 09/27/24 18:41 The radiologist interpreted the patient's CT scan of the abdomen pelvis without contrast. I reviewed the impression. The impression states compared to similar study dated 08/10/2024, there is a normal abdomen and pelvis CT scan without contrast. Blood Culture(s) Obtained: Yes Antibiotics given: Yes Counseled pt/family regarding: lab results, diagnosis, need for follow-up Medical Desision Making - Diagnostic Testing Diagnostic test were ordered, analyzed, and reviewed by me: Yes Radiological Interpretation: Reviewed by me, Teleradiologist Report - Risk of complications The pt has a mod risk of morbidity or mortality based on: Need for prescription drug management - Departure Departure Disposition: Home Clinical Impression: Urinary tract infection Condition: Stable Critical Care Time: No Referrals: TIMA SANCHEZ MD [Primary Care Provider] - Follow up/PCP as directed Additional Instructions: Plenty of fluids. Take your medications as prescribed. Call your prescribing provider on 09/29/2024, to make arrangements for follow-up appointment for further evaluation and management and for any further pain control you require. Prescriptions: Levofloxacin [Levaquin 500 MG Tablet] 500 mg PO DAILY #7 tablet
[2024-09-27] MEDS ORDERED: Zofran 4 MG/2 ML VIAL ONE (16:29)
[2024-09-27] MEDS ORDERED: Sodium Chloride 0.9% 1000 ML 1,000 ML ONE (16:30)
[2024-09-27] MEDS ORDERED: Hydromorphone 1 mg/ml Injection ONE ×2 (16:30→18:46)
[2024-09-27] MEDS: Sodium Chloride 0.9% 1000 ML 1,000 ML IV STA (16:32)
[2024-09-27] MEDS: Zofran 4 MG/2 ML VIAL IV ONE (16:33)
[2024-09-27] MEDS: Hydromorphone 1 mg/ml Injection IV ONE ×2 (16:34→18:46)
[2024-09-27 16:36] LABS: Absolute Neutrophil Ct (ANC) 4.23 x10^3/uL (1.56-6.13); BASOPHIL % 0.2 % (0.1-1.2); Basophil (Absolute #) 0.01 x10^3/uL (0.01-0.08); Eosinophil % 0.4 % (0.7-5.8); Eosinophil (Absolute #) 0.02 x10^3/uL (0.04-0.36); Hematocrit 41.3 % (34.1-44.9); IMMATURE GRAN # 0.01 x10^3u/L (0.001-0.031); IMMATURE GRAN % 0.2 % (0.001-0.429); Lymphocyte (Absolute #) 1.04 x10^3/uL (1.18-3.74); Lymphocytes % 18.5 % (19.3-51.7); Mean Cell Volume 81.8 fL (79.4-94.8); Mean Corpuscular Hemoglobin 27.7 pg (25.6-32.2); Mean Corpuscular Hgb Concent. 33.9 g/dL (32.2-35.5); Monocyte (Absolute #) 0.31 x10^3/uL (0.24-0.86); Monocytes % 5.5 % (4.7-12.5); Neutrophil % 75.2 % (34.0-71.1); Platelet Count 216 x10^3/uL (182-369); Red Blood Count 5.05 x10^6/uL (3.93-5.22); Red Cell Distribution Width 12.7 % (11.7-14.4); White Blood Count 5.6 x10^3/uL (3.98-10.04)
[2024-09-27 16:45] LABS: Appearance Cloudy (Clear); Bacteria Few /HPF (None Seen); Bilirubin Negative (Negative); Blood Moderate (Negative); Epithelial Cells Few /HPF (None Seen); Glucose, Urine Negative (Negative); Hyaline Casts NONE SEEN /LPF (0-2); Ketones Trace (Negative); Leukocyte Esterase Large (Negative); Nitrite Negative (Negative); Ph 6.5 (4.6-8.0); Protein,Urine Dip 30 (Negative); RBC 51-100 /HPF (0-5); Specific Gravity >=1.030 (1.005-1.030); WBC >100 /HPF (0-5)
[2024-09-27 16:58] LABS: ANION GAP 13.9 MEQ/L (5-15); BILIRUBIN,TOTAL 0.3 mg/dL (0.2-1.3); Creatinine 1 0.81 mg/dL (0.52-1.04); EST GLOMERULAR FILTRATION RATE 97.6 ML/MIN; Potassium 3.6 mmol/L (3.5-5.1); Total Protein 6.5 g/dL (6.3-8.2)
[2024-09-27] MEDS ORDERED: Levofloxacin 500 MG Tablet ONE (17:20)
[2024-09-27] MEDS ORDERED: ROCEPHIN 1 GM / 100 ML NaCl 1 GM/100 ML IVPB IV ONE (17:20)
[2024-09-27] MEDS: ROCEPHIN 1 GM / 100 ML NaCl 1 GM/100 ML IVPB IV ONE (17:21)
[2024-09-27] MEDS: Levofloxacin 500 MG Tablet PO ONE (17:21)
[2024-09-27 18:01] VITALS: RESP 18
[2024-09-27 18:06] VITALS: O2SAT 99
[2024-09-27 19:03] VITALS: BP 125/73; PULSE 62
--- NOTE | 2024-09-27 21:07 | XRAY ---
Indication: Flank pain. UTI. Multiple contiguous axial images obtained through the abdomen and pelvis without contrast using renal stone protocol. Comparison: August 10, 2024 Lung bases clear again with incidental right middle lobe calcified granuloma. Heart not enlarged. No renal calculus or evidence for obstructive uropathy in either system. Noncontrasted stomach and bowel loops appear nonobstructed with normal appendix. Stable descending duodenal diverticulum, cholecystectomy, and hysterectomy. No free fluid/air. Remaining liver, pancreas, spleen, adrenal glands, kidneys, ureters, bladder, and aorta are unremarkable for noncontrast exam. Osseous structures intact. Impression: 1. Continued negative renal calculus or evidence for obstructive uropathy. 2. Again incidental duodenal diverticulum and right middle lobe calcified granuloma. 3. No new/acute findings on this noncontrast exam.
[2024-09-28] MEDS ORDERED: Levofloxacin 500 MG Tablet ONE (15:40)
== END 2024-09-27 19:24 | disposition home or self-care (01) ==
LOC: ED 15:29
DX: N39.0 Urinary tract infection, site not specified (principal); R10.9 Unspecified abdominal pain; E11.9 Type 2 diabetes mellitus without complications; Z79.85 Long-term (current) use of injectable non-insulin antidiabetic drugs; Z79.899 Other long term (current) drug therapy
CPT/HCPCS: 36415; 74176; 80053; 81001; 83605; 83735; 85025; 87040; 87086; 96360; 96365; 96374; 96375; 96376; 99284; J0696; J1171; J2405; A9270-GY

== ENCOUNTER 2024-12-13 06:53 | Day surgery (SDC) | payer OTHER ==
[2024-12-13] MEDS ORDERED: BUPIVACAINE 0.5% VIAL IJ ONE (06:54)
[2024-12-13] MEDS ORDERED: LIDOCAINE HCL 1% AMPUL 5 ML IJ ONE (06:54)
[2024-12-13] MEDS ORDERED: MORPHINE SULFATE 2 MG INJ ONE (08:52)
[2024-12-13] MEDS ORDERED: propofoL IV ONE (08:56)
--- NOTE | 2024-12-13 10:01 | XRAY ---
15 seconds of fluoroscopy was used in surgery for a ganglion impar nerve block.
--- NOTE | 2024-12-13 10:01 | XRAY ---
Indication: Ganglion impar nerve block. Intraoperative fluoroscopy provided for 15 seconds. 3 digital spot image submitted for interpretation demonstrates posterior needle tip projecting just anterior to sacrococcygeal junction. Small amount of contrast injected for needle tip placement. Correlate with intraoperative findings/report.
== END 2024-12-13 09:15 | disposition home or self-care (01) ==
LOC: SDC-PAIN 06:53
PROVIDERS: ATTEND Psychiatry & Neurology Pain Medicine
DX: M53.3 Sacrococcygeal disorders, not elsewhere classified (principal); E11.9 Type 2 diabetes mellitus without complications
CPT/HCPCS: 64999; 72220; 77002; 77003; 82947; J2270; J2704; Q9966

== ENCOUNTER 2024-12-22 18:03 | Emergency (ER) | payer OTHER ==
[2024-12-22 18:17] VITALS: TEMP 98.7
[2024-12-22 20:15] LABS: Absolute Neutrophil Ct (ANC) 2.16 x10^3/uL (1.56-6.13); BASOPHIL % 0.5 % (0.1-1.2); Basophil (Absolute #) 0.02 x10^3/uL (0.01-0.08); Eosinophil % 2.3 % (0.7-5.8); Hematocrit 39.4 % (34.1-44.9); Hemoglobin 13.5 g/dL (11.2-15.7); IMMATURE GRAN # 0.01 x10^3u/L (0.001-0.031); IMMATURE GRAN % 0.2 % (0.001-0.429); Lymphocyte (Absolute #) 1.73 x10^3/uL (1.18-3.74); Mean Cell Volume 80.2 fL (79.4-94.8); Mean Corpuscular Hemoglobin 27.5 pg (25.6-32.2); Mean Corpuscular Hgb Concent. 34.3 g/dL (32.2-35.5); Mean Platelet Volume 10.2 fL (9.4-12.3); Monocyte (Absolute #) 0.31 x10^3/uL (0.24-0.86); Monocytes % 7.2 % (4.7-12.5); Neutrophil % 49.8 % (34.0-71.1); Platelet Count 235 x10^3/uL (182-369); Red Blood Count 4.91 x10^6/uL (3.93-5.22); Red Cell Distribution Width 11.9 % (11.7-14.4); White Blood Count 4.3 x10^3/uL (3.98-10.04)
[2024-12-22] MEDS ORDERED: Ativan 2 MG/1 ML VIAL ONE (20:15)
[2024-12-22] MEDS ORDERED: TYLENOL EXTRA STRENGTH 500 MG ONE (20:16)
[2024-12-22] MEDS ORDERED: Sodium Chloride 0.9% 1000 ML 1,000 ML ONE (20:16)
[2024-12-22] MEDS: Sodium Chloride 0.9% 1000 ML 1,000 ML IV STA (20:19)
[2024-12-22 20:20] LABS: ALBUMIN 4.2 g/dL (3.5-5.0); ANION GAP 15.8 MEQ/L (5-15); BILIRUBIN,TOTAL 0.8 mg/dL (0.2-1.3); Calcium 8.7 mg/dL (8.4-10.2); Creatinine 1 0.68 mg/dL (0.52-1.04); EST GLOMERULAR FILTRATION RATE 117.1 ML/MIN; MAGNESIUM 2.1 mg/dL (1.6-2.3); Potassium 3.6 mmol/L (3.5-5.1); Total Protein 7.1 g/dL (6.3-8.2)
[2024-12-22] MEDS: TYLENOL EXTRA STRENGTH 500 MG PO ONE (20:20)
[2024-12-22] MEDS: Ativan 2 MG/1 ML VIAL IV ONE (20:20)
[2024-12-22 20:47] LABS: HCG SERUM TEST NEGATIVE (NEGATIVE)
[2024-12-22 21:32] VITALS: O2SAT 98
[2024-12-22 21:49] LABS: Appearance Clear (Clear); Bacteria Few /HPF (None Seen); Bilirubin Negative (Negative); Blood Negative (Negative); Epithelial Cells Few /HPF (None Seen); Glucose, Urine Negative (Negative); Ketones 15 (Negative); Leukocyte Esterase Negative (Negative); Nitrite Negative (Negative); Ph 5.5 (4.6-8.0); Protein,Urine Dip Negative (Negative); RBC 0-2 /HPF (0-5); Specific Gravity >=1.030 (1.005-1.030); Urobilinogen 0.2 mg/dL (0.2); WBC 0-2 /HPF (0-5)
--- NOTE | 2024-12-22 21:49 | ERPHSYRPT ---
- History of Present Illness Time Seen by Provider: 12/22/24 19:36 Source: patient, family Exam Limitations: no limitations Patient Subjective Stated Complaint: PT HERE FOR TREMORS ABOUT A 2 WEEKS WORSE TODAY, SHE WAS SEEN BY FAMILY DR TODAY AND TOLD IT WAS A MEDICATION REACTION AND TO WEAN DOWN OFF OF 2 OF HER NEW MEDS Triage Nursing Assessment: PT ALERT, ARRIVED PER EMS, RESP EASY, SKIN W/D/P. HAS OCC TREMORS TO ARMS AND LEGS, CO SOME NAUSEA Physician History: 34-year-old female with history of anxiety, migraine, sick sinus syndrome with pacemaker placement, diabetes mellitus currently off of Ozempic presented in the ER with complains of off-and-on tremors in upper or lower extremities for 2 weeks which is getting worse today. Patient was seen at primary care office today and was told that she had interaction of her triptan with Cymbalta and could possibly develop serotonin syndrome. Patient is very anxious and tearful, denies any chest pain palpitations or shortness of breath. No fever or chills reported. While in the interview patient is moving/shaking her extremities 1 at a time. Patient reports she was prescribed ropinirole but has not picked up from the pharmacy. She is feeling weak and fatigued with lack of energy. Allergies/Adverse Reactions: ketorolac [From Toradol] Allergy (Severe, Verified 12/22/24 18:05) Hives latex Allergy (Severe, Verified 12/22/24 18:05) STOPPED BREATHING prochlorperazine [From Compazine] Allergy (Severe, Verified 12/22/24 18:05) Hives and shakes Influenza Virus Vaccines Allergy (Mild, Verified 12/22/24 18:05) headache vomiting levothyroxine sodium [From Synthroid] Allergy (Mild, Verified 12/22/24 18:05) Migranes methylphenidate [From Ritalin] Allergy (Verified 12/22/24 18:05) migranes metoclopramide [From Reglan] Allergy (Verified 12/22/24 18:05) aspirin Adverse Reaction (Mild, Verified 12/22/24 18:05) Vomiting medidate Adverse Reaction (Mild, Uncoded 12/22/24 18:05) VOMTIING Home Medications: Albuterol Common Canister [Ventolin Common Canister] 2 puff IH Q4H PRN 09/01/22 [History] Semaglutide [Ozempic] 1 mg SQ WEEKLY 03/22/23 [History] Famotidine 20 mg [Pepcid 20 MG] 20 mg PO DAILY 10/07/23 [History] Estradiol [Vivelle-Dot] 1 patch TOP UD 08/10/24 [History] Levothyroxine Sodium [Unithroid] 100 mcg PO DAILY 08/10/24 [History] Gabapentin [Neurontin ] 600 mg PO TID 09/21/24 [History] Potassium Chloride [Klor-Con M10] 10 meq PO DAILY 09/24/24 [History] Sertraline HCl [Zoloft] 50 mg PO DAILY 09/24/24 [History] Duloxetine HCl 40 mg PO DAILY 12/22/24 [History] Propranolol HCl 40 mg PO DAILY 12/22/24 [History] Rizatriptan Benzoate [Rizatriptan] 10 mg PO DAILY 12/22/24 [History] Ropinirole HCl 1 mg PO DAILY 12/22/24 [History] Tizanidine HCl 1 ea DAILY 12/22/24 [History] Hx Tetanus, Diphtheria Vaccination/Date Given: No Hx Influenza Vaccination/Date Given: No Hx Pneumococcal Vaccination/Date Given: No Immunizations Up to Date: Yes Travel Risk - International Travel Have you traveled outside of the country in past 3 weeks: No - Emerging Infectious Disease Are you exhibiting symptoms associated with any current EIDs: No Symptoms: Abdominal Pain - Review of Systems Constitutional: Fatigue, Weakness Eyes: No Symptoms Ears, Nose, & Throat: No Symptoms Respiratory: No Symptoms Cardiac: No Symptoms Abdominal/Gastrointestinal: No Symptoms Genitourinary Symptoms: No Symptoms Musculoskeletal: Fall Skin: No Symptoms Neurological: Tremors Psychological: Anxiety Endocrine: No Symptoms Hematologic/Lymphatic: No Symptoms Immunological/Allergic: No Symptoms - Past Medical History Pertinent Past Medical History: Yes Neurological History: Migraines ENT History: No Pertinent History Cardiac History: Other Respiratory History: Asthma Endocrine Medical History: Diabetes Type II, Hypothyroidism, Liver Disease Musculoskeletal History: Fibromyalgia GI Medical History: Gallbladder Disease History: No Pertinent History Psycho-Social History: Anxiety, Attention Deficit Disorder, Depression, Other Female Reproductive Disorders: Endometriosis Other Medical History: Pacemaker, x3, Hysterectomy (R Ovary retained), Cholecystectomy, L Cubital Tunnel Release, SEPSIS a year ago from UTI - Past Surgical History Past Surgical History: Yes Neuro Surgical History: No Pertinent History Cardiac: Pacemaker Respiratory: No Pertinent History Gastrointestinal: Cholecystectomy Genitourinary: No Pertinent History Musculoskeletal: No Pertinent History Female Surgical History: Hysterectomy Other Surgical History: c section x3, left oopherectomy and tubal removal,. Loop crowell device (removed) Significant Family History: no pertinent family hx, cancer (colon/breast), diabetes, other (Gall bladder disease) - Female History Hx Last Menstrual Period: HYSTER Hx Now: No - Social History Smoking Status: Never smoker How long have you smoked: vapes Exposure to second hand smoke: No Drug Use: marijuana - Social Determinants of Health Will the patient participate in the screening: Yes Do you worry about a steady place to live?: No Do you have any problems with any of the following?: No known problems In the past 12 months,have you had to go without utilities?: No Transportation Issues: No Has anyone in your support network made you feel unsafe?: No Have you or anyone in your house had to go w/o enough food: No - Nursing Vital Signs Nursing Vital Signs: Initial Vital Signs Temperature 98.7 F 12/22/24 18:17 Pulse Rate 77 12/22/24 18:17 Respiratory Rate 18 12/22/24 18:17 Blood Pressure 140/74 12/22/24 18:17 O2 Sat by Pulse Oximetry 98 12/22/24 18:17 Pain Scale Pain Intensity 5 - Physical Exam General Appearance: no apparent distress, alert, anxiety Eye Exam: PERRL/EOMI, eyes nml inspection Ears, Nose, Throat Exam: normal ENT inspection, TMs normal, pharynx normal, vik[address] st mucous membranes Neck Exam: normal inspection, non-tender, supple, full range of motion Respiratory Exam: normal breath sounds, lungs clear Cardiovascular Exam: regular rate/rhythm, normal heart sounds Gastrointestinal/Abdomen Exam: soft, normal bowel sounds, No tenderness Back Exam: normal inspection, normal range of motion Extremity Exam: normal inspection, normal range of motion Neurologic Exam: alert, oriented x 3, cooperative, shift lab technician II-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 nml as tested, nml cerebellar function, nml station & gait, sensation nml, No normal mood/affect, No motor deficits Skin Exam: normal color SpO2 Interpretation: normal SpO2: 98 O2 Delivery: Room Air - Course EKG Interpreted by Me: RATE (63, atrial paced rhythm,), NORMAL AXIS, NORMAL INTERVALS, Other (Nonspecific T wave change) Ordered Tests: Active Orders 24 hr Category Date Time 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 Care 12/22/24 20:08 Active EKG-ER Only STAT Care 12/22/24 20:04 Active IV Insertion STAT Care 12/22/24 20:04 Active CBC W DIFF Stat Lab 12/22/24 19:50 Completed CK-Creatinine Phosphokinase Stat Lab 12/22/24 19:50 Completed CMP Stat Lab 12/22/24 19:50 Completed HCG QUALITATIVE, SERUM Stat Lab 12/22/24 20:30 Completed MAGNESIUM Stat Lab 12/22/24 19:50 Completed TROPONIN Q4H Lab 12/22/24 19:40 Completed TROPONIN Q4H Lab 12/23/24 00:15 Ordered TROPONIN Q4H Lab 12/23/24 04:15 Ordered UA W/RFX UR CULTURE Stat Lab 12/22/24 21:41 Completed Urine Triage Profile Stat Lab 12/22/24 21:41 Completed Medication Summary Discontinued Medications Generic Name Dose Route Start Last Admin Trade Name Jhonq PRN Reason Stop Dose Admin Acetaminophen 1,000 mg 12/22/24 20:14 12/22/24 20:20 Acetaminophen 500 Mg Tablet PO 12/22/24 20:15 1,000 mg STAT ONE Administration Acetaminophen Confirm 12/22/24 20:16 Acetaminophen 500 Mg Tablet Administered 12/22/24 20:17 Dose 1,000 mg .ROUTE .STK-MED ONE Sodium Chloride 1,000 mls @ 999 mls/hr 12/22/24 20:04 12/22/24 21:24 Sodium Chloride 0.9% 1000 Ml IV 12/22/24 21:04 999 mls/hr .Q1H1M STA Infusion Sodium Chloride Confirm 12/22/24 20:16 Sodium Chloride 0.9% 1000 Ml Administered 12/22/24 20:17 Dose 1,000 mls @ ud .ROUTE .STK-MED ONE Lorazepam 1 mg 12/22/24 20:09 12/22/24 20:20 Lorazepam 2 Mg/1 Ml 2 Mg Vial IV 12/22/24 20:10 1 mg STAT ONE Administration Lorazepam Confirm 12/22/24 20:15 Lorazepam 2 Mg/1 Ml 2 Mg Vial Administered 12/22/24 20:16 Dose 2 mg .ROUTE .STK-MED ONE Ropinirole HCl 0.5 mg 12/22/24 21:55 12/22/24 22:07 Ropinirole Hcl 0.5 Mg Tablet PO 12/22/24 21:56 0.5 mg STAT ONE Administration Ropinirole HCl Confirm 12/22/24 21:58 Ropinirole Hcl 0.5 Mg Tablet Administered 12/22/24 21:59 Dose 0.5 mg .ROUTE .STK-MED ONE Lab/Rad Data: Laboratory Result Diagrams 12/22/24 19:50 12/22/24 19:50 Laboratory Results 12/22/24 12/22/24 12/22/24 Range/Units 21:41 21:41 20:30 WBC (3.98-10.04) x10^3/uL RBC (3.93-5.22) x10^6/uL Hgb (11.2-15.7) g/dL Hct (34.1-44.9) % MCV (79.4-94.8) fL MCH (25.6-32.2) pg MCHC (32.2-35.5) g/dL RDW (11.7-14.4) % Plt Count (182-369) x10^3/uL MPV (9.4-12.3) fL Gran % (34.0-71.1) % Immature Gran % (Auto) (0.001-0.429) % Nucleat RBC Rel Count (0.00-0.2) % Eos # (Auto) (0.04-0.36) x10^3/uL Immature Gran # (Auto) (0.001-0.031) x10^3u/L Absolute Lymphs (auto) (1.18-3.74) x10^3/uL Absolute Monos (auto) (0.24-0.86) x10^3/uL Absolute Nucleated RBC (0.00-0.012) x10^3u/L Lymphocytes % (19.3-51.7) % Monocytes % (4.7-12.5) % Eosinophils % (0.7-5.8) % Basophils % (0.1-1.2) % Absolute Granulocytes (1.56-6.13) x10^3/uL Basophils # (0.01-0.08) x10^3/uL Sodium (135-145) mmol/L Potassium (3.5-5.1) mmol/L Chloride (98-107) mmol/L Carbon Dioxide (22-30) mmol/L Anion Gap (5-15) MEQ/L BUN (7-17) mg/dL Creatinine (0.52-1.04) mg/dL Estimated GFR ML/MIN Glucose (74-106) mg/dL Calcium (8.4-10.2) mg/dL Magnesium (1.6-2.3) mg/dL Total Bilirubin (0.2-1.3) mg/dL AST (14-36) U/L ALT (0-35) U/L Alkaline Phosphatase (38-126) U/L Creatine Kinase (30-135) U/L Troponin I (0.000-0.033) ng/mL Serum Total Protein (6.3-8.2) g/dL Albumin (3.5-5.0) g/dL Serum HCG, Qual NEGATIVE (NEGATIVE) Urine Color Dark Yellow A (Yellow) Urine Appearance Clear (Clear) Urine pH 5.5 (4.6-8.0) Ur Specific [place] >=1.030 A (1.005-1.030) Urine Protein Negative (Negative) Urine Glucose (UA) Negative (Negative) mg/dL Urine Ketones 15 A (Negative) Urine Blood Negative (Negative) Urine Nitrite Negative (Negative) Urine Bilirubin Negative (Negative) Urine Urobilinogen 0.2 (0.2) mg/dL Ur Leukocyte Esterase Negative (Negative) U Hyaline Cast (Auto) 3-5 A (0-2) /LPF Urine Microscopic RBC 0-2 (0-5) /HPF Urine Microscopic WBC 0-2 (0-5) /HPF Ur Epithelial Cells Few (None Seen) /HPF Urine Bacteria Few A (None Seen) /HPF Urine Culture Reflexed NO (NO) Urine Opiates Level NEGATIVE (NEGATIVE) Ur Methadone NEGATIVE (NEGATIVE) Urine Barbiturates NEGATIVE (NEGATIVE) Ur Phencyclidine (PCP) NEGATIVE (NEGATIVE) Urine Amphetamine NEGATIVE (NEGATIVE) U Benzodiazepine Level NEGATIVE (NEGATIVE) Urine Cocaine NEGATIVE (NEGATIVE) Urine Marijuana (THC) POSITIVE A (NEGATIVE) 12/22/24 12/22/24 12/22/24 Range/Units 19:50 19:50 19:40 WBC 4.3 (3.98-10.04) x10^3/uL RBC 4.91 (3.93-5.22) x10^6/uL Hgb 13.5 (11.2-15.7) g/dL Hct 39.4 (34.1-44.9) % MCV 80.2 (79.4-94.8) fL MCH 27.5 (25.6-32.2) pg MCHC 34.3 (32.2-35.5) g/dL RDW 11.9 (11.7-14.4) % Plt Count 235 (182-369) x10^3/uL MPV 10.2 (9.4-12.3) fL Gran % 49.8 (34.0-71.1) % Immature Gran % (Auto) 0.2 (0.001-0.429) % Nucleat RBC Rel Count 0.0 (0.00-0.2) % Eos # (Auto) 0.10 (0.04-0.36) x10^3/uL Immature Gran # (Auto) 0.01 (0.001-0.031) x10^3u/L Absolute Lymphs (auto) 1.73 (1.18-3.74) x10^3/uL Absolute Monos (auto) 0.31 (0.24-0.86) x10^3/uL Absolute Nucleated RBC 0.00 (0.00-0.012) x10^3u/L Lymphocytes % 40.0 (19.3-51.7) % Monocytes % 7.2 (4.7-12.5) % Eosinophils % 2.3 (0.7-5.8) % Basophils % 0.5 (0.1-1.2) % Absolute Granulocytes 2.16 (1.56-6.13) x10^3/uL Basophils # 0.02 (0.01-0.08) x10^3/uL Sodium 137 (135-145) mmol/L Potassium 3.6 (3.5-5.1) mmol/L Chloride 104 (98-107) mmol/L Carbon Dioxide 21 L (22-30) mmol/L Anion Gap 15.8 H (5-15) MEQ/L BUN 11 (7-17) mg/dL Creatinine 0.68 (0.52-1.04) mg/dL Estimated GFR 117.1 ML/MIN Glucose 98 (74-106) mg/dL Calcium 8.7 (8.4-10.2) mg/dL Magnesium 2.1 (1.6-2.3) mg/dL Total Bilirubin 0.80 (0.2-1.3) mg/dL AST 46 H (14-36) U/L ALT 33 (0-35) U/L Alkaline Phosphatase 41 (38-126) U/L Creatine Kinase 25 L (30-135) U/L Troponin I < 0.012 (0.000-0.033) ng/mL Serum Total Protein 7.1 (6.3-8.2) g/dL Albumin 4.2 (3.5-5.0) g/dL Serum HCG, Qual (NEGATIVE) Urine Color (Yellow) Urine Appearance (Clear) Urine pH (4.6-8.0) Ur Specific [place] (1.005-1.030) Urine Protein (Negative) Urine Glucose (UA) (Negative) mg/dL Urine Ketones (Negative) Urine Blood (Negative) Urine Nitrite (Negative) Urine Bilirubin (Negative) Urine Urobilinogen (0.2) mg/dL Ur Leukocyte Esterase (Negative) U Hyaline Cast (Auto) (0-2) /LPF Urine Microscopic RBC (0-5) /HPF Urine Microscopic WBC (0-5) /HPF Ur Epithelial Cells (None Seen) /HPF Urine Bacteria (None Seen) /HPF Urine Culture Reflexed (NO) Urine Opiates Level (NEGATIVE) Ur Methadone (NEGATIVE) Urine Barbiturates (NEGATIVE) Ur Phencyclidine (PCP) (NEGATIVE) Urine Amphetamine (NEGATIVE) U Benzodiazepine Level (NEGATIVE) Urine Cocaine (NEGATIVE) Urine Marijuana (THC) (NEGATIVE) - Progress Progress: improved Progress Note: 12/22/24 22:30 34-year-old is evaluated in the ER for anxiety/tremors which patient relates secondary to taking triptan and Celexa and recommended by primary care to slowly wean it off and was started on Requip for her restless legs which she has not picked up. Patient has voluntary shaking of right or left legs which are stopped when her attention is diverted. She is given Ativan and fluid bolus, on reevaluation she is feeling much better. No more tremor/shaking spells. She is given a dose of Requip as well. Workup showed normal white count, chemistries fairly unremarkable, no UTI. EKG is paced rhythm with no acute ischemic changes. Patient has no acute electrolyte abnormalities. Patient has no clonus, change in the tone/rigidity, no hyperreflexia, negative hyperactive bowel sounds, no tachypnea or tachycardia although patient is very anxious. I believe her symptoms are more related to her anxiety as patient was trying to stop these medications altogether which she is advised to continue as recommended by primary care I do not think patient needs any other workup and is stable for discharge with outpatient follow-up. Discussed signs symptoms of worsening needing return to ER which she seems understanding. I have shared the results of workup with patient and family and plan of discharge which they seem understanding. Complexity of problems addressed. Moderate acute Amount and complexity of data to be reviewed and analyzed. Moderate Risk of complication and morbidity/mortality of patient management: Low risk. Counseled pt/family regarding: lab results, diagnosis, need for follow-up, rad results Medical Desision Making - Independent Historian Additional History obtained from: Mother - Diagnostic Testing Diagnostic test were ordered, analyzed, and reviewed by me: Yes - Risk of complications The pt has a mod risk of morbidity or mortality based on: Need for prescription drug management - Departure Departure Disposition: Home Clinical Impression: Anxiety, Shakiness, Restless leg syndrome Condition: Stable Critical Care Time: No Referrals: TIMA SANCHEZ MD [Primary Care Provider] - Follow up with PCP 1 day Instructions: Anxiety in adults - ED discharge instructions Additional Instructions: Continue with your current medications according to weaning schedule recommended by your PCP. Follow-up with PCP for reevaluation early next week. supervisor/port director your prescription for restless legs. Return to ER for any worsening.
[2024-12-22] MEDS ORDERED: Requip 0.5 MG ONE (21:58)
[2024-12-22 21:59] LABS: Amphetamine,Urine NEGATIVE (NEGATIVE); Barbiturate,Urine NEGATIVE (NEGATIVE); Benzodiazepine,Urine NEGATIVE (NEGATIVE); Cocaine,Urine NEGATIVE (NEGATIVE); Methadone,Urine NEGATIVE (NEGATIVE); Opiate,Urine NEGATIVE (NEGATIVE); PCP,Urine NEGATIVE (NEGATIVE); THC,Urine POSITIVE (NEGATIVE)
[2024-12-22] MEDS: Requip 0.5 MG PO ONE (22:07)
[2024-12-22 23:03] VITALS: BP 110/74; PULSE 73; RESP 15
== END 2024-12-22 23:09 | disposition home or self-care (01) ==
LOC: ED 18:03
DX: F41.9 Anxiety disorder, unspecified (principal); R25.1 Tremor, unspecified; G25.81 Restless legs syndrome; R53.1 Weakness; E11.9 Type 2 diabetes mellitus without complications; Z79.899 Other long term (current) drug therapy
CPT/HCPCS: 36415; 80053; 80307; 81001; 82550; 83735; 84484; 84703; 85025; 93005; 93041; 96361; 96374; 99284; J2060; A9270-GY

== ENCOUNTER 2024-12-30 16:00 | Emergency (ER) | payer OTHER ==
[2024-12-30 16:13] VITALS: BP 126/84; PULSE 63; RESP 32; TEMP 97.6; O2SAT 100
[2024-12-30] MEDS ORDERED: Sodium Chloride 0.9% 1000 ML 1,000 ML ONE (16:35)
--- NOTE | 2024-12-30 16:40 | ERPHSYRPT ---
- History of Present Illness Time Seen by Provider: 12/30/24 16:35 Historian: patient Exam Limitations: no limitations Patient Subjective Stated Complaint: pt here for black tary stools today with some abd pain and nausea. Triage Nursing Assessment: pt alert, walked in, resp easy, skin w/d/p, abd soft with bs heard, Physician History: pt here for black tary stools today with some abd pain and nausea. Patient is 34-year-old female with significant past medical history of diabetes mellitus history of arrhythmia status post pacemaker started having some periumbilical area abdominal pain with dark tarry stool so she came to the emergency room. In the emergency room she was having a very little pain around periumbilical area and was denying any other symptoms. Timing/Duration: today Abdominal Pain Onset Location: periumbilical Pain Radiation: no radiation Severity of Pain-Max: mild Severity of Pain-Current: mild Modifying Factors: Improves With: nothing Associated Symptoms: other (black stools) Allergies/Adverse Reactions: ketorolac [From Toradol] Allergy (Severe, Verified 12/22/24 18:05) Hives latex Allergy (Severe, Verified 12/22/24 18:05) STOPPED BREATHING prochlorperazine [From Compazine] Allergy (Severe, Verified 12/22/24 18:05) Hives and shakes Influenza Virus Vaccines Allergy (Mild, Verified 12/22/24 18:05) headache vomiting levothyroxine sodium [From Synthroid] Allergy (Mild, Verified 12/22/24 18:05) Migranes methylphenidate [From Ritalin] Allergy (Verified 12/22/24 18:05) migranes metoclopramide [From Reglan] Allergy (Verified 12/22/24 18:05) aspirin Adverse Reaction (Mild, Verified 12/22/24 18:05) Vomiting medidate Adverse Reaction (Mild, Uncoded 12/22/24 18:05) VOMTIING Home Medications: Albuterol Common Canister [Ventolin Common Canister] 2 puff IH Q4H PRN 09/01/22 [History] Semaglutide [Ozempic] 1 mg SQ WEEKLY 03/22/23 [History] Famotidine 20 mg [Pepcid 20 MG] 20 mg PO DAILY 10/07/23 [History] Estradiol [Vivelle-Dot] 1 patch TOP UD 08/10/24 [History] Levothyroxine Sodium [Unithroid] 100 mcg PO DAILY 08/10/24 [History] Gabapentin [Neurontin ] 600 mg PO TID 09/21/24 [History] Potassium Chloride [Klor-Con M10] 10 meq PO DAILY 09/24/24 [History] Sertraline HCl [Zoloft] 50 mg PO DAILY 09/24/24 [History] Duloxetine HCl 40 mg PO DAILY 12/22/24 [History] Propranolol HCl 40 mg PO DAILY 12/22/24 [History] Rizatriptan Benzoate [Rizatriptan] 10 mg PO DAILY 12/22/24 [History] Ropinirole HCl 1 mg PO DAILY 12/22/24 [History] Tizanidine HCl 1 ea DAILY 12/22/24 [History] Hx Tetanus, Diphtheria Vaccination/Date Given: No Hx Influenza Vaccination/Date Given: No Hx Pneumococcal Vaccination/Date Given: No Immunizations Up to Date: Yes Travel Risk - International Travel Have you traveled outside of the country in past 3 weeks: No - Emerging Infectious Disease Are you exhibiting symptoms associated with any current EIDs: No Symptoms: Abdominal Pain - Review of Systems Constitutional: No Fever, No Chills Eyes: No Symptoms Ears, Nose, & Throat: No Symptoms Respiratory: No Cough, No Dyspnea Cardiac: No Chest Pain, No Edema, No Syncope Abdominal/Gastrointestinal: Abdominal Pain, Hematochezia, Melena, No Nausea, No Vomiting, No Diarrhea, No Constipation, No Hematemesis Genitourinary Symptoms: No Dysuria Musculoskeletal: No Back Pain, No Neck Pain Skin: No Rash Neurological: No Dizziness, No Focal Weakness, No Sensory Changes Psychological: No Symptoms Endocrine: No Symptoms All Other Systems: Reviewed and Negative - Past Medical History Pertinent Past Medical History: Yes Neurological History: Migraines ENT History: No Pertinent History Cardiac History: Other Respiratory History: Asthma Endocrine Medical History: Diabetes Type II, Hypothyroidism, Liver Disease Musculoskeletal History: Fibromyalgia GI Medical History: Gallbladder Disease History: No Pertinent History Psycho-Social History: Anxiety, Attention Deficit Disorder, Depression, Other Female Reproductive Disorders: Endometriosis Other Medical History: Pacemaker, x3, Hysterectomy (R Ovary retained), Cholecystectomy, L Cubital Tunnel Release, SEPSIS a year ago from UTI - Past Surgical History Past Surgical History: Yes Neuro Surgical History: No Pertinent History Cardiac: Pacemaker Respiratory: No Pertinent History Gastrointestinal: Cholecystectomy Genitourinary: No Pertinent History Musculoskeletal: No Pertinent History Female Surgical History: Hysterectomy Other Surgical History: c section x3, left oopherectomy and tubal removal,. Loop crowell device (removed) Significant Family History: no pertinent family hx, cancer (colon/breast), diabetes, other (Gall bladder disease) - Female History Hx Last Menstrual Period: hster Hx Now: No - Social History Smoking Status: Never smoker How long have you smoked: vapes Exposure to second hand smoke: No Drug Use: marijuana - Social Determinants of Health Will the patient participate in the screening: Yes Do you worry about a steady place to live?: Yes Do you have any problems with any of the following?: No known problems In the past 12 months,have you had to go without utilities?: No Transportation Issues: No Has anyone in your support network made you feel unsafe?: No Have you or anyone in your house had to go w/o enough food: No - Nursing Vital Signs Nursing Vital Signs: Initial Vital Signs Temperature 97.6 F 12/30/24 16:12 Pulse Rate 63 12/30/24 16:12 Respiratory Rate 32 H 12/30/24 16:12 Blood Pressure 126/84 12/30/24 16:12 O2 Sat by Pulse Oximetry 100 12/30/24 16:12 Pain Scale Pain Intensity 6 - Physical Exam General Appearance: no apparent distress, alert Eye Exam: PERRL/EOMI, eyes nml inspection Ears, Nose, Throat Exam: normal ENT inspection, pharynx normal, moist mucous membranes Neck Exam: normal inspection, non-tender, supple, full range of motion Respiratory Exam: normal breath sounds, lungs clear, No respiratory distress Cardiovascular Exam: regular rate/rhythm, normal heart sounds Gastrointestinal/Abdomen Exam: soft, No tenderness, No mass Back Exam: normal inspection, normal range of motion, No CVA tenderness, No vertebral tenderness Extremity Exam: normal inspection, normal range of motion, pelvis stable Neurologic Exam: alert, oriented x 3, cooperative, normal mood/affect, nml cerebellar function, sensation nml, No motor deficits Skin Exam: normal color, warm, dry SpO2: 100 - Course Nursing assessment & vital signs reviewed: Yes Ordered Tests: Active Orders 24 hr Category Date Time Status AMYLASE Stat Lab 12/30/24 17:02 Completed CBC W DIFF Stat Lab 12/30/24 17:02 Completed CMP Stat Lab 12/30/24 17:02 Completed CULTURE,URINE Stat Lab 12/30/24 16:39 Received LIPASE Stat Lab 12/30/24 17:02 Completed UA W/RFX UR CULTURE Stat Lab 12/30/24 16:39 Completed Urine Triage Profile Stat Lab 12/30/24 16:39 Completed Medication Summary Generic Name Dose Route Start Last Admin Trade Name Freq PRN Reason Stop Dose Admin Ceftriaxone Sodium 1 gm in 100 mls @ 200 mls/hr 12/30/24 17:47 12/30/24 17:50 Rocephin 1 Gm / 100 Ml Nacl IV 12/30/24 18:16 200 ml/hr STAT ONE 200 mls/hr Administration Discontinued Medications Generic Name Dose Route Start Last Admin Trade Name Freq PRN Reason Stop Dose Admin Ceftriaxone Sodium 1,000 mg 12/30/24 17:32 12/30/24 17:46 Ceftriaxone Sodium 1000 Mg Inj Vial IM 12/30/24 17:33 Not Given STAT ONE Sodium Chloride 1,000 mls @ 999 mls/hr 12/30/24 16:25 12/30/24 16:48 Sodium Chloride 0.9% 1000 Ml IV 12/30/24 17:25 999 mls/hr .Q1H1M STA Administration Sodium Chloride Confirm 12/30/24 16:35 Sodium Chloride 0.9% 1000 Ml Administered 12/30/24 16:36 Dose 1,000 mls @ ud .ROUTE .STK-MED ONE Ceftriaxone Sodium Confirm 12/30/24 17:48 Rocephin 1 Gm / 100 Ml Nacl Administered 12/30/24 17:49 Dose 1 gm in 100 mls @ ud IV .STK-MED ONE Ondansetron HCl 4 mg 12/30/24 16:43 12/30/24 16:48 Ondansetron Hcl 4 Mg/2 Ml Vial IV 12/30/24 16:44 4 mg STAT ONE Administration Ondansetron HCl Confirm 12/30/24 16:44 Ondansetron Hcl 4 Mg/2 Ml Vial Administered 12/30/24 16:45 Dose 4 mg .ROUTE .STK-MED ONE Pantoprazole Sodium 40 mg 12/30/24 16:43 12/30/24 16:51 Pantoprazole 40 Mg Vial IV 12/30/24 16:44 40 mg STAT ONE Administration Pantoprazole Sodium Confirm 12/30/24 16:45 Pantoprazole 40 Mg Vial Administered 12/30/24 16:46 Dose 40 mg IV .STK-MED ONE Lab/Rad Data: Laboratory Result Diagrams 12/30/24 17:02 12/30/24 17:02 Laboratory Results 12/30/24 12/30/24 12/30/24 Range/Units 17:02 17:02 16:39 WBC 5.6 (3.98-10.04) x10^3/uL RBC 4.90 (3.93-5.22) x10^6/uL Hgb 13.5 (11.2-15.7) g/dL Hct 40.5 (34.1-44.9) % MCV 82.7 (79.4-94.8) fL MCH 27.6 (25.6-32.2) pg MCHC 33.3 (32.2-35.5) g/dL RDW 12.3 (11.7-14.4) % Plt Count 220 (182-369) x10^3/uL MPV 9.7 (9.4-12.3) fL Gran % 66.8 (34.0-71.1) % Immature Gran % (Auto) 0.4 (0.001-0.429) % Nucleat RBC Rel Count 0.0 (0.00-0.2) % Eos # (Auto) 0.12 (0.04-0.36) x10^3/uL Immature Gran # (Auto) 0.02 (0.001-0.031) x10^3u/L Absolute Lymphs (auto) 1.43 (1.18-3.74) x10^3/uL Absolute Monos (auto) 0.27 (0.24-0.86) x10^3/uL Absolute Nucleated RBC 0.00 (0.00-0.012) x10^3u/L Lymphocytes % 25.5 (19.3-51.7) % Monocytes % 4.8 (4.7-12.5) % Eosinophils % 2.1 (0.7-5.8) % Basophils % 0.4 (0.1-1.2) % Absolute Granulocytes 3.74 (1.56-6.13) x10^3/uL Basophils # 0.02 (0.01-0.08) x10^3/uL Sodium 141 (135-145) mmol/L Potassium 3.9 (3.5-5.1) mmol/L Chloride 108 H (98-107) mmol/L Carbon Dioxide 24 (22-30) mmol/L Anion Gap 13.4 (5-15) MEQ/L BUN 7 (7-17) mg/dL Creatinine 0.74 (0.52-1.04) mg/dL Estimated GFR 108.8 ML/MIN Glucose 80 (74-106) mg/dL Calcium 8.9 (8.4-10.2) mg/dL Total Bilirubin 0.50 (0.2-1.3) mg/dL AST 28 (14-36) U/L ALT 23 (0-35) U/L Alkaline Phosphatase 43 (38-126) U/L Serum Total Protein 6.7 (6.3-8.2) g/dL Albumin 4.0 (3.5-5.0) g/dL Amylase 53 (30-110) U/L Lipase 79 (23-300) U/L Urine Color (Yellow) Urine Appearance (Clear) Urine pH (4.6-8.0) Ur Specific [place] (1.005-1.030) Urine Protein (Negative) Urine Glucose (UA) (Negative) mg/dL Urine Ketones (Negative) Urine Blood (Negative) Urine Nitrite (Negative) Urine Bilirubin (Negative) Urine Urobilinogen (0.2) mg/dL Ur Leukocyte Esterase (Negative) U Hyaline Cast (Auto) (0-2) /LPF Urine Microscopic RBC (0-5) /HPF Urine Microscopic WBC (0-5) /HPF Ur Epithelial Cells (None Seen) /HPF Urine Bacteria (None Seen) /HPF Urine Culture Reflexed (NO) Urine Opiates Level NEGATIVE (NEGATIVE) Ur Methadone NEGATIVE (NEGATIVE) Urine Barbiturates NEGATIVE (NEGATIVE) Ur Phencyclidine (PCP) NEGATIVE (NEGATIVE) Urine Amphetamine NEGATIVE (NEGATIVE) U Benzodiazepine Level NEGATIVE (NEGATIVE) Urine Cocaine NEGATIVE (NEGATIVE) Urine Marijuana (THC) POSITIVE A (NEGATIVE) 12/30/24 Range/Units 16:39 WBC (3.98-10.04) x10^3/uL RBC (3.93-5.22) x10^6/uL Hgb (11.2-15.7) g/dL Hct (34.1-44.9) % MCV (79.4-94.8) fL MCH (25.6-32.2) pg MCHC (32.2-35.5) g/dL RDW (11.7-14.4) % Plt Count (182-369) x10^3/uL MPV (9.4-12.3) fL Gran % (34.0-71.1) % Immature Gran % (Auto) (0.001-0.429) % Nucleat RBC Rel Count (0.00-0.2) % Eos # (Auto) (0.04-0.36) x10^3/uL Immature Gran # (Auto) (0.001-0.031) x10^3u/L Absolute Lymphs (auto) (1.18-3.74) x10^3/uL Absolute Monos (auto) (0.24-0.86) x10^3/uL Absolute Nucleated RBC (0.00-0.012) x10^3u/L Lymphocytes % (19.3-51.7) % Monocytes % (4.7-12.5) % Eosinophils % (0.7-5.8) % Basophils % (0.1-1.2) % Absolute Granulocytes (1.56-6.13) x10^3/uL Basophils # (0.01-0.08) x10^3/uL Sodium (135-145) mmol/L Potassium (3.5-5.1) mmol/L Chloride (98-107) mmol/L Carbon Dioxide (22-30) mmol/L Anion Gap (5-15) MEQ/L BUN (7-17) mg/dL Creatinine (0.52-1.04) mg/dL Estimated GFR ML/MIN Glucose (74-106) mg/dL Calcium (8.4-10.2) mg/dL Total Bilirubin (0.2-1.3) mg/dL AST (14-36) U/L ALT (0-35) U/L Alkaline Phosphatase (38-126) U/L Serum Total Protein (6.3-8.2) g/dL Albumin (3.5-5.0) g/dL Amylase (30-110) U/L Lipase (23-300) U/L Urine Color Yellow (Yellow) Urine Appearance Cloudy A (Clear) Urine pH 6.0 (4.6-8.0) Ur Specific [place] 1.025 (1.005-1.030) Urine Protein Negative (Negative) Urine Glucose (UA) Negative (Negative) mg/dL Urine Ketones Trace A (Negative) Urine Blood Negative (Negative) Urine Nitrite Negative (Negative) Urine Bilirubin Negative (Negative) Urine Urobilinogen 1.0 A (0.2) mg/dL Ur Leukocyte Esterase Trace A (Negative) U Hyaline Cast (Auto) NONE SEEN (0-2) /LPF Urine Microscopic RBC 0-2 (0-5) /HPF Urine Microscopic WBC 3-5 (0-5) /HPF Ur Epithelial Cells Moderate A (None Seen) /HPF Urine Bacteria Moderate A (None Seen) /HPF Urine Culture Reflexed YES (NO) Urine Opiates Level (NEGATIVE) Ur Methadone (NEGATIVE) Urine Barbiturates (NEGATIVE) Ur Phencyclidine (PCP) (NEGATIVE) Urine Amphetamine (NEGATIVE) U Benzodiazepine Level (NEGATIVE) Urine Cocaine (NEGATIVE) Urine Marijuana (THC) (NEGATIVE) - Progress Progress: improved, pain not gone completely Counseled pt/family regarding: lab results, diagnosis, need for follow-up Medical Desision Making - Diagnostic Testing Diagnostic test were ordered, analyzed, and reviewed by me: Yes - Risk of complications Minimal Risk: Minimal risk of morbidity - Departure Departure Disposition: Home Clinical Impression: Periumbilical abdominal pain UTI (urinary tract infection) Qualifiers: Urinary tract infection type: site unspecified Hematuria presence: without hematuria Qualified Code(s): N39.0 - Urinary tract infection, site not specified Condition: Stable Critical Care Time: No Referrals: TIMA SANCHEZ MD [Primary Care Provider] - Follow up/PCP as directed Instructions: Abdominal pain Additional Instructions: ABDOMINAL PAIN 1. There are several different causes for abdominal pain, some of which may not be able to be identified on initial examination. 2. The important thing to remember is that bodily functions can change in a short period of time. If you notice any of the following symptoms, return to the emergency department or consult your doctor immediately: A. Worsening pain or no improvement in the next 12 hours. B. Increasing, severe abdominal pain C. Blood in stool D. Black stools E. Persistent vomiting F. Fever or chills or other symptoms Discharge/Care Plan JOHAN MELARA was seen on 12/30/24 in the Emergency Room. The patient was counseled regarding Diagnosis,Lab results, Imaging studies, need for follow up and when to return to the Emergency Room. Prescriptions given: Discharge Note I have spoken with the patient and/or caregivers. I have explained the patient's condition, diagnosis and treatment plan based on the information available to me at this time. I have answered the patient's and/or caregiver's questions and addressed any concerns. The patient and/or caregivers have as good understanding of the patient's diagnosis, condition and treatment plan as can be expected at this point. The vital signs have been stable. The patient's condition is stable and appropriate for discharge from the emergency department. The patient will pursue further outpatient evaluation with the primary care physician or other designated or consulting physician as outlined in the discharge instructions. The patient and/or caregivers are agreeable to this plan of care and follow-up instructions have been explained in detail. The patient and/or caregivers have received these instruction. The patient/and or caregivers are aware that any significant change in condition or worsening of symptoms should prompt an immediate return to this or the closest emergency department or call 911. JOHAN MELARA was seen on 12/30/24 n the Emergency Room. At that time you were treated for an emergent condition, during your visit Laboratory, Radiology and/or other procedures may have been ordered. It is very important that you follow-up with your Primary Care Physician TIMA SANCHEZ within the next 24-48 hours to review your Emergency Room visit and the final results of testing that was ordered. Some test results such as Urine Cultures, Blood Cultures, and other cultures if ordered will not be finalized for 24-48 hours. If you do not have a Primary Care Provider please call the medical records department at [phone] ext [phone] to obtain a copy of your results or you may sign into our patient portal to obtain these results by visiting us @ [email or web address] and completing the following steps: 1. Click on the Patient Portal link 2. Click the Patient Self Enrollment Link to complete the enrollment form and entering your 3. Once the enrollment form is completed you will receive an email with a temporary ID and password at the email address you provided. 4. Next choose a user name and password. Your user name must be at least 4 jaylyn acters long and your password must be at least 4 characters long. 5. Choose a security question from the list and provide your answer to the question. If you already have signed into the Health Portal you may access your Health Care Information 24/05 by the following steps: 1. Login to our website @ [email or web address] 2. Enter your original user name and password. FAQS The [facility] Health Portal is an online tool that contains your Lab Results, Radiology Reports, Visit History, Discharge Instructions and Health Summary Lab and Radiology Results will not be available for 72 hours on the portal. The Portal is a secure site, passwords are encryted and URLs are re-written so they cannot be copied and pasted. You and authorized family members are the only ones who can access your Portal. Also there is a timeout feature that protects your information if you leave the Portal page open. If you have technical difficulty please use the Contact Us link on the page this will allow you to submit any questions you have regarding the Portal or you may contact the Medical Record Department at [phone]. Prescriptions: Smz/Tmp Ds Tablet [Bactrim Ds Tablet] 1 udtab PO BID #20 tablet
[2024-12-30] MEDS ORDERED: Zofran 4 MG/2 ML VIAL ONE (16:44)
[2024-12-30] MEDS ORDERED: PROTONIX 40 MG IV IV ONE (16:45)
[2024-12-30] MEDS: Zofran 4 MG/2 ML VIAL IV ONE (16:48)
[2024-12-30] MEDS: Sodium Chloride 0.9% 1000 ML 1,000 ML IV STA (16:48)
[2024-12-30] MEDS: PROTONIX 40 MG IV IV ONE (16:51)
[2024-12-30 17:01] LABS: Amphetamine,Urine NEGATIVE (NEGATIVE); Barbiturate,Urine NEGATIVE (NEGATIVE); Benzodiazepine,Urine NEGATIVE (NEGATIVE); Cocaine,Urine NEGATIVE (NEGATIVE); Methadone,Urine NEGATIVE (NEGATIVE); Opiate,Urine NEGATIVE (NEGATIVE); PCP,Urine NEGATIVE (NEGATIVE); THC,Urine POSITIVE (NEGATIVE)
[2024-12-30 17:03] LABS: Appearance Cloudy (Clear); Bacteria Moderate /HPF (None Seen); Bilirubin Negative (Negative); Blood Negative (Negative); Epithelial Cells Moderate /HPF (None Seen); Glucose, Urine Negative (Negative); Hyaline Casts NONE SEEN /LPF (0-2); Ketones Trace (Negative); Leukocyte Esterase Trace (Negative); Nitrite Negative (Negative); Protein,Urine Dip Negative (Negative); RBC 0-2 /HPF (0-5); Specific Gravity 1.025 (1.005-1.030)
[2024-12-30 17:04] LABS: Absolute Neutrophil Ct (ANC) 3.74 x10^3/uL (1.56-6.13); BASOPHIL % 0.4 % (0.1-1.2); Basophil (Absolute #) 0.02 x10^3/uL (0.01-0.08); Eosinophil % 2.1 % (0.7-5.8); Eosinophil (Absolute #) 0.12 x10^3/uL (0.04-0.36); Hematocrit 40.5 % (34.1-44.9); Hemoglobin 13.5 g/dL (11.2-15.7); IMMATURE GRAN # 0.02 x10^3u/L (0.001-0.031); IMMATURE GRAN % 0.4 % (0.001-0.429); Lymphocyte (Absolute #) 1.43 x10^3/uL (1.18-3.74); Lymphocytes % 25.5 % (19.3-51.7); Mean Cell Volume 82.7 fL (79.4-94.8); Mean Corpuscular Hemoglobin 27.6 pg (25.6-32.2); Mean Corpuscular Hgb Concent. 33.3 g/dL (32.2-35.5); Mean Platelet Volume 9.7 fL (9.4-12.3); Monocyte (Absolute #) 0.27 x10^3/uL (0.24-0.86); Monocytes % 4.8 % (4.7-12.5); Neutrophil % 66.8 % (34.0-71.1); Platelet Count 220 x10^3/uL (182-369); Red Cell Distribution Width 12.3 % (11.7-14.4); White Blood Count 5.6 x10^3/uL (3.98-10.04)
[2024-12-30 17:17] LABS: ANION GAP 13.4 MEQ/L (5-15); BILIRUBIN,TOTAL 0.5 mg/dL (0.2-1.3); Calcium 8.9 mg/dL (8.4-10.2); Creatinine 1 0.74 mg/dL (0.52-1.04); EST GLOMERULAR FILTRATION RATE 108.8 ML/MIN; Potassium 3.9 mmol/L (3.5-5.1); Total Protein 6.7 g/dL (6.3-8.2)
[2024-12-30] MEDS: Rocephin 1000 MG INJ IM ONE (17:46)
[2024-12-30] MEDS ORDERED: ROCEPHIN 1 GM / 100 ML NaCl 1 GM/100 ML IVPB IV ONE (17:48)
[2024-12-30] MEDS: ROCEPHIN 1 GM / 100 ML NaCl 1 GM/100 ML IVPB IV ONE (17:50)
[2024-12-30] MEDS ORDERED: MORPHINE SULFATE 4 MG INJ ONE (18:13)
[2024-12-30] MEDS: MORPHINE SULFATE 4 MG INJ IV ONE (18:14)
== END 2024-12-30 18:32 | disposition home or self-care (01) ==
LOC: ED 16:00
DX: R10.33 Periumbilical pain (principal); N39.0 Urinary tract infection, site not specified; K92.1 Melena; R11.0 Nausea; E11.9 Type 2 diabetes mellitus without complications; Z79.85 Long-term (current) use of injectable non-insulin antidiabetic drugs; Z79.899 Other long term (current) drug therapy; Z59.819 Housing instability, housed unspecified
CPT/HCPCS: 36415; 80053; 80307; 81001; 82150; 83690; 85025; 87086; 96361; 96365; 96374; 96375; 99284; J0696; J2270; J2405

== ENCOUNTER 2025-01-16 06:25 | Day surgery (SDC) | payer OTHER ==
[2025-01-16] MEDS ORDERED: Lactated Ringers 1,000 ML IV ONE (06:37)
[2025-01-16] MEDS: Lactated Ringers 1,000 ML IV SCH (07:09)
[2025-01-16 07:12] VITALS: RESP 16
[2025-01-16 07:24] LABS: ALBUMIN 4.2 g/dL (3.5-5.0); Calcium 8.7 mg/dL (8.4-10.2); Creatinine 1 0.72 mg/dL (0.52-1.04); EST GLOMERULAR FILTRATION RATE 112.5 ML/MIN; Potassium 3.5 mmol/L (3.5-5.1); Total Protein 7.2 g/dL (6.3-8.2)
[2025-01-16] MEDS ORDERED: Lactated Ringers 1,000 ML IV SCH (07:30)
[2025-01-16] MEDS ORDERED: Versed 2 MG/2 ML Injection ONE (07:58)
[2025-01-16] MEDS ORDERED: propofoL IV ONE ×2 (07:59→08:14)
[2025-01-16] MEDS ORDERED: Xylocaine-Mpf 2% 5 Ml Vial ONE (07:59)
[2025-01-16] MEDS ORDERED: ROBINUL ONE (08:09)
[2025-01-16 09:12] VITALS: TEMP 98
[2025-01-16 09:18] VITALS: BP 114/79; PULSE 61; O2SAT 100
--- NOTE | 2025-01-17 09:34 | OP ---
SURGERY DATE/TIME: 01/16/2025 [id number] PREOPERATIVE DIAGNOSES: 1) Abdominal pain. 2) Change in bowels. 3) A 25-pound weight loss. POSTOPERATIVE DIAGNOSIS: Normal colon. PROCEDURE: Colonoscopy. SURGEON: León Obregon MD. ANESTHESIA: Medications were given by the anesthesia department. INDICATIONS: The patient is a 34-year-old white female who has been experiencing problems with abdominal pain. She apparently had a colonoscopy 10 years ago which showed everything was normal. At that time, she had her gallbladder removed. Her family history is negative for any first-degree relatives with any medical problems in regard to colitis, colon polyps, or colon cancer. The patient was felt to need to have an endoscopic evaluation. She was apprised of the risks of the procedure including risk of perforation, phlebitis, untoward reaction to medication, bleeding, and missed lesions. The patient verbalized her understanding and desired to have the procedure performed. DESCRIPTION OF PROCEDURE AND FINDINGS: The patient was given medication by the anesthesia department. She had continuous pulse oximetry, ECG monitoring, and intermittent blood pressure monitoring during the examination. She was placed in the left lateral decubitus position. Digital rectal examination was performed and revealed normal anal sphincter tone, and no masses. The flexible Olympus videocolonoscope was used to intubate the rectum. A view of the colon was developed sequentially to the cecum. We also traversed into approximately 20 cm of the ileum. Biopsies were obtained in the ileum and in the colon to random sections to rule out underlying presence of collagenous colitis or other microforms of colitis. With no mucosal lesions being noted, the scope was removed from the patient who tolerated the procedure well and was sent back to outpatient recovery in good condition. The prep was noted to be fair.
== END 2025-01-16 09:29 | disposition home or self-care (01) ==
LOC: SDC 06:25
PROVIDERS: ATTEND Family Medicine
DX: R10.9 Unspecified abdominal pain (principal); R19.4 Change in bowel habit; R63.4 Abnormal weight loss; E11.9 Type 2 diabetes mellitus without complications; Z79.899 Other long term (current) drug therapy
CPT/HCPCS: 36415; 80053; 82947; 93005; J2250; J2704

== ENCOUNTER 2025-03-05 23:36 | Emergency (ER) | payer OTHER ==
[2025-03-05 23:43] VITALS: PULSE 60; TEMP 97.7; O2SAT 97
[2025-03-06] MEDS ORDERED: Zofran 4 MG/2 ML VIAL ONE (00:19)
[2025-03-06] MEDS ORDERED: BENADRYL 50 MG/ML ONE (00:19)
[2025-03-06] MEDS: Zofran 4 MG/2 ML VIAL IV ONE (00:21)
[2025-03-06] MEDS: BENADRYL 50 MG/ML IV ONE (00:22)
[2025-03-06] MEDS ORDERED: Hydromorphone 1 mg/ml Injection ONE (01:02)
--- NOTE | 2025-03-06 01:03 | ERPHSYRPT ---
- History of Present Illness Source: patient Exam Limitations: no limitations Patient Subjective Stated Complaint: headache Triage Nursing Assessment: Pt ambulated into ER, sig other at her side. Pt c/o headache to the right temporal area, behind rt eye and across forehead since 9am this morning. Pt has taken 2 doses of her rizatriptan today but not much improvement in headache. Pt has nausea and dizziness but no vomiting. Physician History: Patient has a history of migraines. This is Not like her usual migraines. It is a unilateral throbbing and stabbing notes kind of behind her right eye. She has had some double vision and some blurry vision at times. It is not the worst headache of her life. It did not come on with a thunderclap. It is associated with some nausea and she did not vomit. She took her triptan at home and then repeated it a couple hours later and she did not get relief.The headache she is describing has characteristic of migraines but it is not like her usual. It is in a different location and she usually does not have the visual disturbances.She does not have any neurological symptoms seizures or anything like that. She does not have any nuchal rigidity.It started this morning and has been pretty persistent despite her taking her triptans. Allergies/Adverse Reactions: ketorolac [From Toradol] Allergy (Severe, Verified 03/05/25 23:44) Hives latex Allergy (Severe, Verified 03/05/25 23:44) STOPPED BREATHING prochlorperazine [From Compazine] Allergy (Severe, Verified 03/05/25 23:44) Hives and shakes Influenza Virus Vaccines Allergy (Mild, Verified 03/05/25 23:44) headache vomiting levothyroxine sodium [From Synthroid] Allergy (Mild, Verified 03/05/25 23:44) Migranes methylphenidate [From Ritalin] Allergy (Verified 03/05/25 23:44) migranes metoclopramide [From Reglan] Allergy (Verified 03/05/25 23:44) aspirin Adverse Reaction (Mild, Verified 03/05/25 23:44) Vomiting medidate Adverse Reaction (Mild, Uncoded 03/05/25 23:44) VOMTIING Home Medications: Albuterol Common Canister [Ventolin Common Canister] 2 puff IH Q4H PRN 09/01/22 [History] Semaglutide [Ozempic] 1 mg SQ WEEKLY 03/22/23 [History] Famotidine 20 mg [Pepcid 20 MG] 20 mg PO DAILY 10/07/23 [History] Estradiol [Vivelle-Dot] 1 patch TOP UD 08/10/24 [History] Levothyroxine Sodium [Unithroid] 50 mcg PO DAILY 08/10/24 [History] Gabapentin [Neurontin ] 800 mg PO TID 09/21/24 [History] Potassium Chloride [Klor-Con M10] 10 meq PO DAILY 09/24/24 [History] Sertraline HCl [Zoloft] 50 mg PO DAILY 09/24/24 [History] Propranolol HCl 40 mg PO DAILY 12/22/24 [History] Rizatriptan Benzoate [Rizatriptan] 10 mg PO DAILY 12/22/24 [History] Ropinirole HCl 1 mg PO DAILY 12/22/24 [History] Ipratropium/Albuterol Sulfate [Combivent Respimat Inhal [place]] 4 gm IH UD 01/15/25 [History] Melatonin 5 mg PO DAILY 01/15/25 [History] Hx Tetanus, Diphtheria Vaccination/Date Given: Yes Hx Influenza Vaccination/Date Given: No Hx Pneumococcal Vaccination/Date Given: No Travel Risk - International Travel Have you traveled outside of the country in past 3 weeks: No - Emerging Infectious Disease Are you exhibiting symptoms associated with any current EIDs: No Symptoms: Abdominal Pain - Review of Systems Constitutional: No Symptoms Eyes: Vision Changes, Double Vision Ears, Nose, & Throat: No Symptoms Respiratory: No Symptoms Musculoskeletal: No Symptoms Skin: No Symptoms Neurological: Other (Generalized weakness), No Focal Weakness, No Gait Changes Psychological: No Symptoms - Past Medical History Pertinent Past Medical History: Yes Neurological History: Migraines ENT History: No Pertinent History Cardiac History: Other Respiratory History: Asthma Endocrine Medical History: Diabetes Type II, Hypothyroidism, Liver Disease Musculoskeletal History: Fibromyalgia GI Medical History: Gallbladder Disease History: No Pertinent History Psycho-Social History: Anxiety, Attention Deficit Disorder, Depression, Other Female Reproductive Disorders: Endometriosis Other Medical History: Pacemaker, x3, Hysterectomy (R Ovary retained), Cholecystectomy, L Cubital Tunnel Release, SEPSIS a year ago from UTI - Past Surgical History Past Surgical History: Yes Neuro Surgical History: No Pertinent History Cardiac: Pacemaker Respiratory: No Pertinent History Gastrointestinal: Cholecystectomy Genitourinary: No Pertinent History Musculoskeletal: No Pertinent History Female Surgical History: Hysterectomy Other Surgical History: c section x3, left oopherectomy and tubal removal,. Loop recorder device (removed) Significant Family History: no pertinent family hx, cancer (colon/breast), diabetes, other (Gall bladder disease) - Female History Hx Last Menstrual Period: hster Hx Now: No - Social History Smoking Status: Former smoker Exposure to second hand smoke: No Drug Use: other - Social Determinants of Health Will the patient participate in the screening: Yes Do you worry about a steady place to live?: No Do you have any problems with any of the following?: No known problems In the past 12 months,have you had to go without utilities?: No Transportation Issues: No Has anyone in your support network made you feel unsafe?: No Have you or anyone in your house had to go w/o enough food: No - Nursing Vital Signs Nursing Vital Signs: Initial Vital Signs Temperature 97.7 F 03/05/25 23:42 Pulse Rate 60 03/05/25 23:42 Respiratory Rate 18 03/05/25 23:42 Blood Pressure 134/81 03/05/25 23:42 O2 Sat by Pulse Oximetry 97 03/05/25 23:42 Pain Scale Pain Intensity 6 - Physical Exam General Appearance: no apparent distress Eye Exam: PERRL/EOMI Respiratory Exam: normal breath sounds, No chest tenderness Cardiovascular Exam: regular rate/rhythm Mental Status 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, 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: normal hearing, normal speech, PERRL Coordination/Gait Exam: normal gait Motor/Sensory Exam: no motor deficit, no sensory deficit Skin Exam: normal color SpO2: 97 Ordered Tests: Medication Summary Discontinued Medications Generic Name Dose Route Start Last Admin Trade Name Freq PRN Reason Stop Dose Admin Diphenhydramine HCl 50 mg 03/06/25 00:08 03/06/25 00:22 Diphenhydramine Hcl 50 Mg/Ml Vial IV 03/06/25 00:09 50 mg STAT ONE Administration Diphenhydramine HCl Confirm 03/06/25 00:19 Diphenhydramine Hcl 50 Mg/Ml Vial Administered 03/06/25 00:20 Dose 50 mg .ROUTE .STK-MED ONE Hydromorphone HCl 0.5 mg 03/06/25 00:58 03/06/25 01:04 Hydromorphone 1 Mg/1ml Inj IV 03/06/25 00:59 0.5 mg STAT ONE Administration Hydromorphone HCl Confirm 03/06/25 01:02 Hydromorphone 1 Mg/1ml Inj Administered 03/06/25 01:03 Dose 1 mg .ROUTE .STK-MED ONE Ondansetron HCl 8 mg 03/06/25 00:08 03/06/25 00:21 Ondansetron Hcl 4 Mg/2 Ml Vial IV 03/06/25 00:09 8 mg STAT ONE Administration Ondansetron HCl Confirm 03/06/25 00:19 Ondansetron Hcl 4 Mg/2 Ml Vial Administered 03/06/25 00:20 Dose 8 mg .ROUTE .STK-MED ONE - Progress Progress: improved Air Movement: good Progress Note: Patient was given Benadryl and Zofran. Her symptoms improved somewhat. She is then given 1/2 mg of Dilaudid and her symptoms improved more. At this time I think she stable to go home. I think she just had an unusual variant of her migraine headache.I would have like to given her triptan but she is already maxed out on that today 03/06/25 01:33 Blood Culture(s) Obtained: No Antibiotics given: No Medical Desision Making - Risk of complications Minimal Risk: Minimal risk of morbidity - Departure Departure Disposition: Home Clinical Impression: Migraine Condition: Stable Critical Care Time: No Referrals: TIMA SANCHEZ MD [[facility] Care Provider, [facility]] - Follow up/PCP as directed Instructions: Headache, Adult (DC)
[2025-03-06] MEDS: Hydromorphone 1 mg/ml Injection IV ONE (01:04)
[2025-03-06 01:23] VITALS: BP 118/65; RESP 16
== END 2025-03-06 01:55 | disposition home or self-care (01) ==
LOC: ED 23:36
DX: G43.909 Migraine, unspecified, not intractable, without status migrainosus (principal); R11.0 Nausea; Z79.85 Long-term (current) use of injectable non-insulin antidiabetic drugs; Z79.899 Other long term (current) drug therapy
CPT/HCPCS: 96374; 96375; 99283; 99284; J1171; J1200; J2405

== ENCOUNTER 2025-03-13 03:45 | Emergency (ER) | payer MEDICARE, OTHER ==
--- NOTE | 2025-03-13 04:04 | ERPHSYRPT ---
- History of Present Illness Historian: patient Exam Limitations: no limitations Hx Tetanus, Diphtheria Vaccination/Date Given: Yes Hx Influenza Vaccination/Date Given: No Hx Pneumococcal Vaccination/Date Given: No <DIANNE URIOSTEGUI - Last Filed: 03/13/25 06:52> <DARIUSYUNIERZITA - Last Filed: 03/13/25 08:22> - History of Present Illness Physician History: Patient has abdominal pain is mainly in her rectum and lower abdomen. She has had abdominal pain on and off for months. She has had some workups done for that she has had colonoscopy done she has not had an endoscopy done though. She had a CT years ago. She says the eating makes symptoms worse. The pain is pretty intense. She has had some bright red blood per rectum. She has had hemorrhoids in the past says this does not seem similar. She has had no fever or chills (DIANNE URIOSTEGUI) Allergies/Adverse Reactions: ketorolac [From Toradol] Allergy (Severe, Verified 03/05/25 23:44) Hives latex Allergy (Severe, Verified 03/05/25 23:44) STOPPED BREATHING prochlorperazine [From Compazine] Allergy (Severe, Verified 03/05/25 23:44) Hives and shakes Influenza Virus Vaccines Allergy (Mild, Verified 03/05/25 23:44) headache vomiting levothyroxine sodium [From Synthroid] Allergy (Mild, Verified 03/05/25 23:44) Migranes methylphenidate [From Ritalin] Allergy (Verified 03/05/25 23:44) migranes metoclopramide [From Reglan] Allergy (Verified 03/05/25 23:44) aspirin Adverse Reaction (Mild, Verified 03/05/25 23:44) Vomiting medidate Adverse Reaction (Mild, Uncoded 03/05/25 23:44) VOMTIING Home Medications: Albuterol Common Canister [Ventolin Common Canister] 2 puff IH Q4H PRN 09/01/22 [History] Semaglutide [Ozempic] 1 mg SQ WEEKLY 03/22/23 [History] Famotidine 20 mg [Pepcid 20 MG] 20 mg PO DAILY 10/07/23 [History] Estradiol [Vivelle-Dot] 1 patch TOP UD 08/10/24 [History] Levothyroxine Sodium [Unithroid] 50 mcg PO DAILY 08/10/24 [History] Gabapentin [Neurontin ] 800 mg PO TID 09/21/24 [History] Potassium Chloride [Klor-Con M10] 10 meq PO DAILY 09/24/24 [History] Sertraline HCl [Zoloft] 50 mg PO DAILY 09/24/24 [History] Propranolol HCl 40 mg PO DAILY 12/22/24 [History] Rizatriptan Benzoate [Rizatriptan] 10 mg PO DAILY 12/22/24 [History] Ropinirole HCl 1 mg PO DAILY 12/22/24 [History] Ipratropium/Albuterol Sulfate [Combivent Respimat Inhal [place]] 4 gm IH UD 01/15/25 [History] Melatonin 5 mg PO DAILY 01/15/25 [History] Travel Risk - Emerging Infectious Disease Are you exhibiting symptoms associated with any current EIDs: No Symptoms: Abdominal Pain <DIANNE URIOSTEGUI - Last Filed: 03/13/25 06:52> - Review of Systems Constitutional: No Symptoms Eyes: No Symptoms All Other Systems: Reviewed and Negative <DIANNE URIOSTEGUI - Last Filed: 03/13/25 06:52> - Past Medical History Pertinent Past Medical History: Yes Neurological History: Migraines ENT History: No Pertinent History Cardiac History: Other Respiratory History: Asthma Endocrine Medical History: Diabetes Type II, Hypothyroidism, Liver Disease Musculoskeletal History: Fibromyalgia GI Medical History: Gallbladder Disease History: No Pertinent History Psycho-Social History: Anxiety, Attention Deficit Disorder, Depression, Other Female Reproductive Disorders: Endometriosis Other Medical History: Pacemaker, x3, Hysterectomy (R Ovary retained), Cholecystectomy, L Cubital Tunnel Release, SEPSIS a year ago from UTI - Past Surgical History Past Surgical History: Yes Neuro Surgical History: No Pertinent History Cardiac: Pacemaker Respiratory: No Pertinent History Gastrointestinal: Cholecystectomy Genitourinary: No Pertinent History Musculoskeletal: No Pertinent History Female Surgical History: Hysterectomy Other Surgical History: c section x3, left oopherectomy and tubal removal,. Loop recorder device (removed) Significant Family History: no pertinent family hx, cancer (colon/breast), diabetes, other (Gall bladder disease) - Female History Hx Last Menstrual Period: hster Hx Now: No - Social History Smoking Status: Former smoker Exposure to second hand smoke: No Drug Use: other - Social Determinants of Health Will the patient participate in the screening: Yes Do you worry about a steady place to live?: No In the past 12 months,have you had to go without utilities?: No Transportation Issues: No Has anyone in your support network made you feel unsafe?: No Have you or anyone in your house had to go w/o enough food: No <DIANNE URIOSTEGUI. - Last Filed: 03/13/25 06:52> - Physical Exam General Appearance: no apparent distress Eye Exam: PERRL/EOMI Respiratory Exam: normal breath sounds Cardiovascular Exam: regular rate/rhythm Gastrointestinal/Abdomen Exam: soft, tenderness (Lower abdomen) Skin Exam: normal color, warm <DIANNE URIOSTEGUI. - Last Filed: 03/13/25 06:52> - Nursing Vital Signs Nursing Vital Signs: Initial Vital Signs Temperature 96.9 F 03/13/25 03:46 Pulse Rate 63 03/13/25 03:46 Respiratory Rate 18 03/13/25 03:46 Blood Pressure 122/7 03/13/25 03:46 O2 Sat by Pulse Oximetry 100 03/13/25 03:46 Pain Scale Pain Intensity 4 - Course Nursing assessment & vital signs reviewed: Yes <DIANNE URIOSTEGUI. - Last Filed: 03/13/25 06:52> Ordered Tests: Active Orders 24 hr Category Date Time Status ABDOMEN AND PELVIS W CONTRAST [CT] Stat Exams 03/13/25 04:01 Completed CBC W DIFF Stat Lab 03/13/25 04:30 Completed CMP Stat Lab 03/13/25 04:30 Completed UA W/RFX UR CULTURE Stat Lab 03/13/25 07:15 Completed Medication Summary Discontinued Medications Generic Name Dose Route Start Last Admin Trade Name Freq PRN Reason Stop Dose Admin Hydromorphone HCl 1 mg 03/13/25 04:02 03/13/25 04:24 Hydromorphone 1 Mg/1ml Inj IV 03/13/25 04:03 1 mg STAT ONE Administration Hydromorphone HCl Confirm 03/13/25 04:07 Hydromorphone 1 Mg/1ml Inj Administered 03/13/25 04:08 Dose 1 mg .ROUTE .STK-MED ONE Hydromorphone HCl 1 mg 03/13/25 06:41 03/13/25 06:45 Hydromorphone 1 Mg/1ml Inj IV 03/13/25 06:42 1 mg STAT ONE Administration Hydromorphone HCl Confirm 03/13/25 06:44 Hydromorphone 1 Mg/1ml Inj Administered 03/13/25 06:45 Dose 1 mg .ROUTE .STK-MED ONE Metoclopramide HCl 10 mg 03/13/25 06:51 03/13/25 06:55 Metoclopramide Hcl 10 Mg/2 Ml Vial IV 03/13/25 06:52 Not Given STAT ONE Ondansetron HCl 4 mg 03/13/25 04:02 03/13/25 04:24 Ondansetron Hcl 4 Mg/2 Ml Vial IV 03/13/25 04:03 4 mg STAT ONE Administration Ondansetron HCl Confirm 03/13/25 04:07 Ondansetron Hcl 4 Mg/2 Ml Vial Administered 03/13/25 04:08 Dose 4 mg .ROUTE .STK-MED ONE Ondansetron HCl 4 mg 03/13/25 05:19 03/13/25 05:21 Ondansetron Hcl 4 Mg/2 Ml Vial IV 03/13/25 05:20 4 mg STAT ONE Administration Ondansetron HCl Confirm 03/13/25 05:20 Ondansetron Hcl 4 Mg/2 Ml Vial Administered 03/13/25 05:21 Dose 4 mg .ROUTE .STK-MED ONE Prochlorperazine Edisylate 10 mg 03/13/25 06:41 03/13/25 06:47 Prochlorperazine Edisylate 10 Mg/2 Ml Vial IV 03/13/25 06:42 Not Given STAT ONE Prochlorperazine Edisylate Confirm 03/13/25 06:44 Prochlorperazine Edisylate 10 Mg/2 Ml Vial Administered 03/13/25 06:45 Dose 10 mg .ROUTE .STK-MED ONE Promethazine HCl 25 mg 03/13/25 06:58 03/13/25 07:02 Promethazine Hcl 25 Mg Tablet PO 03/13/25 06:59 25 mg STAT ONE Administration Promethazine HCl Confirm 03/13/25 07:01 Promethazine Hcl 25 Mg Tablet Administered 03/13/25 07:02 Dose 25 mg .ROUTE .STK-MED ONE Lab/Rad Data: Laboratory Result Diagrams 03/13/25 04:30 03/13/25 04:30 Laboratory Results 03/13/25 03/13/25 03/13/25 Range/Units 07:15 04:30 04:30 WBC 6.9 (3.98-10.04) x10^3/uL RBC 4.97 (3.93-5.22) x10^6/uL Hgb 13.8 (11.2-15.7) g/dL Hct 40.6 (34.1-44.9) % MCV 81.7 (79.4-94.8) fL MCH 27.8 (25.6-32.2) pg MCHC 34.0 (32.2-35.5) g/dL RDW 12.7 (11.7-14.4) % Plt Count 257 (182-369) x10^3/uL MPV 9.7 (9.4-12.3) fL Gran % 55.5 (34.0-71.1) % Immature Gran % (Auto) 0.6 H (0.001-0.429) % Nucleat RBC Rel Count 0.0 (0.00-0.2) % Eos # (Auto) 0.23 (0.04-0.36) x10^3/uL Immature Gran # (Auto) 0.04 H (0.001-0.031) x10^3u/L Absolute Lymphs (auto) 2.36 (1.18-3.74) x10^3/uL Absolute Monos (auto) 0.42 (0.24-0.86) x10^3/uL Absolute Nucleated RBC 0.00 (0.00-0.012) x10^3u/L Lymphocytes % 34.1 (19.3-51.7) % Monocytes % 6.1 (4.7-12.5) % Eosinophils % 3.3 (0.7-5.8) % Basophils % 0.4 (0.1-1.2) % Absolute Granulocytes 3.85 (1.56-6.13) x10^3/uL Basophils # 0.03 (0.01-0.08) x10^3/uL Sodium 136 (135-145) mmol/L Potassium 3.8 (3.5-5.1) mmol/L Chloride 106 (98-107) mmol/L Carbon Dioxide 21 L (22-30) mmol/L Anion Gap 12.5 (5-15) MEQ/L BUN 19 H (7-17) mg/dL Creatinine 0.64 (0.52-1.04) mg/dL Estimated GFR 118.9 ML/MIN Glucose 92 (74-106) mg/dL Calcium 8.4 (8.4-10.2) mg/dL Total Bilirubin 0.20 (0.2-1.3) mg/dL AST 35 (14-36) U/L ALT 44 H (0-35) U/L Alkaline Phosphatase 64 (38-126) U/L Serum Total Protein 6.3 (6.3-8.2) g/dL Albumin 3.7 (3.5-5.0) g/dL Urine Color Yellow (Yellow) Urine Appearance Clear (Clear) Urine pH 5.0 (4.6-8.0) Ur Specific [place] >=1.030 A (1.005-1.030) Urine Protein Negative (Negative) Urine Glucose (UA) Negative (Negative) mg/dL Urine Ketones Negative (Negative) Urine Blood Negative (Negative) Urine Nitrite Negative (Negative) Urine Bilirubin Negative (Negative) Urine Urobilinogen 1.0 A (0.2) mg/dL Ur Leukocyte Esterase Negative (Negative) U Hyaline Cast (Auto) NONE SEEN (0-2) /LPF Urine Microscopic RBC 0-2 (0-5) /HPF Urine Microscopic WBC 0-2 (0-5) /HPF Ur Epithelial Cells Rare (None Seen) /HPF Urine Bacteria Few A (None Seen) /HPF Urine Culture Reflexed NO (NO) <DIANNE URIOSTEGUI - Last Filed: 03/13/25 06:52> - Progress Progress: improved Counseled pt/family regarding: lab results, diagnosis, need for follow-up, rad results <ZITA CORTES - Last Filed: 03/13/25 08:22> - Progress Progress Note: On the differential was colitis, gastroenteritis, diverticulitis, appendicitis, ulcerative colitis,His lab work all look good. I am getting a CT of the abdomen and pelvis with oral contrast to look for pathology including ulcerative colitis. Patient's care was turned over to Dr. Cortes 03/13/25 05:36 03/13/25 06:52 03/13/25 06:53 (DIANNE URIOSTEGUI) Patient endorsed to Dr. Cortes at approximately [address] Cortes advised to review CT abdomen pelvis at the discharge home if no significant findings observed. CT scan reviewed. Patient has a right ovarian cyst measures approximately 3 cm. Patient states her pain is at her rectum and left lower quadrant. CT also shows a lung nodule. Otherwise no significant findings. Laboratory workup essentially nonremarkable. UA negative for UTI. No leukocytosis. Patient is not anemic. Patient received a total of 2 mg of Dilaudid. Antiemetic administered as well. No indication for further workup. Will discharge home. Patient agrees to follow-up with her primary care doctor within 48 hours for reevaluation. Portions of this note were created with voice recognition technology. There may be grammatical, spelling, punctuation or sound alike errors Complexity of problem addressed is moderate acute complicated. No critical care time. Complex of data reviewed and analyzed as moderate. Test ordered test reviewed results analyzed and correlated clinically with history and physical exam. Risk of complication and or risk of morbidity/mortality of patient management is low. Vital stable. Time spent to discharge patient is approximately 15 minutes. Plan of care established for shared decision making. No social determinants of health present to impede follow-up. Portions of this note were created with voice recognition technology. There may be grammatical, spelling, punctuation or sound alike errors 03/13/25 08:17 (ZITA CORTES) <DIANNE URIOSTEGUI - Last Filed: 03/13/25 06:52> - Departure Departure Disposition: Home Critical Care Time: No <ZITA CORTES - Last Filed: 03/13/25 08:22> - Departure Clinical Impression: Abdominal pain, Lung nodule, Ovarian cyst Condition: Stable Referrals: TIMA SANCHEZ MD [Primary Care Provider, [facility]] - Follow up/PCP as directed Additional Instructions: Discharge/Care Plan SARITHAJOHAN ESTELLE was seen on 03/13/25 in the Emergency Room. The patient was counseled regarding Diagnosis,Lab results, Imaging studies, need for follow up and when to return to the Emergency Room. Prescriptions given: Discharge Note I have spoken with the patient and/or caregivers. I have explained the patient's condition, diagnosis and treatment plan based on the information available to me at this time. I have answered the patient's and/or caregiver's questions and addressed any concerns. The patient and/or caregivers have as good understanding of the patient's diagnosis, condition and treatment plan as can be expected at this point. The vital signs have been stable. The patient's condition is stable and appropriate for discharge from the emergency department. The patient will pursue further outpatient evaluation with the primary care physician or other designated or consulting physician as outlined in the discharge instructions. The patient and/or caregivers are agreeable to this plan of care and follow-up instructions have been explained in detail. The patient and/or caregivers have received these instruction. The patient/and or caregivers are aware that any significant change in condition or worsening of symptoms should prompt an immediate return to this or the closest emergency department or call 911.
[2025-03-13 04:06] VITALS: PULSE 63; RESP 18; TEMP 96.9
[2025-03-13] MEDS ORDERED: Zofran 4 MG/2 ML VIAL ONE ×2 (04:07→05:20)
[2025-03-13] MEDS ORDERED: Hydromorphone 1 mg/ml Injection ONE ×2 (04:07→06:44)
[2025-03-13] MEDS: Zofran 4 MG/2 ML VIAL IV ONE ×2 (04:24→05:21)
[2025-03-13] MEDS: Hydromorphone 1 mg/ml Injection IV ONE ×2 (04:24→06:45)
[2025-03-13 04:40] LABS: Absolute Neutrophil Ct (ANC) 3.85 x10^3/uL (1.56-6.13); BASOPHIL % 0.4 % (0.1-1.2); Basophil (Absolute #) 0.03 x10^3/uL (0.01-0.08); Eosinophil % 3.3 % (0.7-5.8); Eosinophil (Absolute #) 0.23 x10^3/uL (0.04-0.36); Hematocrit 40.6 % (34.1-44.9); Hemoglobin 13.8 g/dL (11.2-15.7); IMMATURE GRAN # 0.04 x10^3u/L (0.001-0.031); IMMATURE GRAN % 0.6 % (0.001-0.429); Lymphocyte (Absolute #) 2.36 x10^3/uL (1.18-3.74); Lymphocytes % 34.1 % (19.3-51.7); Mean Cell Volume 81.7 fL (79.4-94.8); Mean Corpuscular Hemoglobin 27.8 pg (25.6-32.2); Mean Platelet Volume 9.7 fL (9.4-12.3); Monocyte (Absolute #) 0.42 x10^3/uL (0.24-0.86); Monocytes % 6.1 % (4.7-12.5); Neutrophil % 55.5 % (34.0-71.1); Platelet Count 257 x10^3/uL (182-369); Red Blood Count 4.97 x10^6/uL (3.93-5.22); Red Cell Distribution Width 12.7 % (11.7-14.4); White Blood Count 6.9 x10^3/uL (3.98-10.04)
[2025-03-13 04:50] LABS: ALBUMIN 3.7 g/dL (3.5-5.0); ANION GAP 12.5 MEQ/L (5-15); BILIRUBIN,TOTAL 0.2 mg/dL (0.2-1.3); Calcium 8.4 mg/dL (8.4-10.2); Creatinine 1 0.64 mg/dL (0.52-1.04); EST GLOMERULAR FILTRATION RATE 118.9 ML/MIN; Potassium 3.8 mmol/L (3.5-5.1); Total Protein 6.3 g/dL (6.3-8.2)
[2025-03-13] MEDS ORDERED: Compazine 10 MG/2 ML ONE (06:44)
[2025-03-13] MEDS: Compazine 10 MG/2 ML IV ONE (06:45)
[2025-03-13] MEDS: Reglan 10 MG/2 ML IV ONE (06:55)
[2025-03-13] MEDS ORDERED: PHENERGAN 25 MG ONE (07:01)
[2025-03-13] MEDS: PHENERGAN 25 MG PO ONE (07:02)
[2025-03-13 07:09] VITALS: O2SAT 98
--- NOTE | 2025-03-13 07:17 | XRAY ---
CLINICAL HISTORY: abd pain and rectal bleeding COMPARISON: 12/26/2023 17:36:33 PET AMBASSADOR TECHNIQUE: Multiple contiguous axial images were obtained from the level of diaphragm to the pubis symphysis. This study was acquired after the IV administration of iodinated contrast material, given the patient's indications for the examination. If IV contrast material had not been administered, the likelihood of detecting abnormalities relevant to the patient's condition would have been substantially decreased. Coronal and sagittal reformatted images were generated and reviewed to improve anatomic localization and optimize lesion detection. CT scan was performed according to ALARA (as low as reasonably achievable). FINDINGS: The visualized lung shows a 7-8mm nodule with foci of calcification in right middle lobe. ABDOMEN/PELVIS: The liver is normal in size and attenuation. No focal liver lesions are seen. There is no intra or extrahepatic biliary ductal dilatation. Hepatic vasculature is patent. Post cholecystectomy status. The spleen, pancreas, and adrenal glands are unremarkable. The kidneys are normal in size and attenuation. There is no hydronephrosis or perinephric fat stranding. No renal calculi or renal masses are identified. The ureters are normal in caliber and no ureteral calculi are seen. The bladder is partially filled. Post hysterectomy status. Right adnexal cyst measuring 3.4x3.3cm. No evidence of focal or diffuse bowel wall thickening or evidence of bowel obstruction is seen. The appendix is visualized in the right lower quadrant and appears within normal limits. No adenopathy or fluid collections are seen. The aorta is normal in caliber. No aggressive appearing osseous lesions are identified. IMPRESSION: 1. Interval mild increase in size right adnexal/ovarian cyst. 2. Stable 7-8mm nodule with foci of calcification in right middle lobe of lung. Electronically Signed by: Roni Reyes MD. (03/13/2025 07:13:03 EDT)
[2025-03-13 07:32] LABS: Appearance Clear (Clear); Bacteria Few /HPF (None Seen); Bilirubin Negative (Negative); Blood Negative (Negative); Epithelial Cells Rare /HPF (None Seen); Glucose, Urine Negative (Negative); Hyaline Casts NONE SEEN /LPF (0-2); Ketones Negative (Negative); Leukocyte Esterase Negative (Negative); Nitrite Negative (Negative); Protein,Urine Dip Negative (Negative); RBC 0-2 /HPF (0-5); Specific Gravity >=1.030 (1.005-1.030); WBC 0-2 /HPF (0-5)
[2025-03-13 08:17] VITALS: BP 115/58
== END 2025-03-13 08:23 | disposition home or self-care (01) ==
LOC: ED 03:45
DX: N83.201 Unspecified ovarian cyst, right side (principal); R91.1 Solitary pulmonary nodule; R10.32 Left lower quadrant pain; K62.89 Other specified diseases of anus and rectum; E11.9 Type 2 diabetes mellitus without complications; Z79.85 Long-term (current) use of injectable non-insulin antidiabetic drugs; Z79.899 Other long term (current) drug therapy
CPT/HCPCS: 36415; 74177; 80053; 81001; 85025; 96374; 96375; 96376; 99284; 99285; J1171; J2405; A9270-GY; Q9963

== ENCOUNTER 2025-05-27 22:57 | Emergency (ER) | payer MEDICARE, OTHER ==
[2025-05-27] MEDS ORDERED: XYLOCAINE 1% HCL 20 ML MDV IJ ONE (22:58)
--- NOTE | 2025-05-27 23:01 | ERPHSYRPT ---
- History of Present Illness Time Seen by Provider: 05/27/25 23:01 Historian: patient, EMS, old records Exam Limitations: no limitations Physician History: This is an obese 34-year-old white female patient of Dr. Sanchez who presents to the emergency department by the handwriting expert service with multiple, seemingly unrelated complaints that she has had chronically and intermittently. She states that she almost passed out at 2 PM today. However she arrives by the paramedics at 11 PM. She states that she has been having intermittent chest pain and body aches described as sharp and burning pain that is generalized. She thought it was probably just her fibromyalgia. She also has a migraine headache. In addition, she stated that she felt her heart racing and she thought maybe it was her POTS disease. The patient sees pain management. She was seen by pain management on 05/16/2025 and she has an appointment scheduled for 05/30/2025. She has not had fevers. She denies nuchal rigidity. She had a CT scan of her head 2 months ago and that was negative. I reviewed the results of that study. Patient has a history of asthma, anxiety, fibromyalgia, ADD, depression. Timing/Duration: today, intermittent Activities at Onset: none Quality: aching, sharpness, other (Burning) Severity of Pain-Max: moderate Severity of Pain-Current: moderate Modifying Factors: Improves With: nothing Associated Symptoms: nausea, weakness, other (Near syncope), No vomiting, No abdominal pain, No shortness of breath Nitro Today/Relief: no nitro taken today Aspirin Treatment Today: no aspirin today (Patient is allergic to Toradol she gets severe hives) Allergies/Adverse Reactions: ketorolac [From Toradol] Allergy (Severe, Verified 05/27/25 23:05) Hives latex Allergy (Severe, Verified 05/27/25 23:05) STOPPED BREATHING prochlorperazine [From Compazine] Allergy (Severe, Verified 05/27/25 23:05) Hives and shakes Influenza Virus Vaccines Allergy (Mild, Verified 05/27/25 23:05) headache vomiting levothyroxine sodium [From Synthroid] Allergy (Mild, Verified 05/27/25 23:05) Migranes methylphenidate [From Ritalin] Allergy (Verified 05/27/25 23:05) migranes metoclopramide [From Reglan] Allergy (Verified 05/27/25 23:05) aspirin Adverse Reaction (Mild, Verified 05/27/25 23:05) Vomiting medidate Adverse Reaction (Mild, Uncoded 05/27/25 23:05) VOMTIING Home Medications: Albuterol Common Canister [Ventolin Common Canister] 2 puff IH Q4H PRN 09/01/22 [History] Semaglutide [Ozempic] 1 mg SQ WEEKLY 03/22/23 [History] Famotidine 20 mg [Pepcid 20 MG] 20 mg PO DAILY 10/07/23 [History] Estradiol [Vivelle-Dot] 1 patch TOP UD 08/10/24 [History] Levothyroxine Sodium [Unithroid] 50 mcg PO DAILY 08/10/24 [History] Gabapentin [Neurontin ] 800 mg PO TID 09/21/24 [History] Potassium Chloride [Klor-Con M10] 10 meq PO DAILY 09/24/24 [History] Sertraline HCl [Zoloft] 50 mg PO DAILY 09/24/24 [History] Propranolol HCl 40 mg PO DAILY 12/22/24 [History] Rizatriptan Benzoate [Rizatriptan] 10 mg PO DAILY 12/22/24 [History] Ropinirole HCl 1 mg PO DAILY 12/22/24 [History] Ipratropium/Albuterol Sulfate [Combivent Respimat Inhal [place]] 4 gm IH UD 01/15/25 [History] Melatonin 5 mg PO DAILY 01/15/25 [History] Metoprolol Succinate 25 mg Xl* [Toprol-Xl 25MG Tablets] 25 mg PO HS 03/22/25 [History] Hx Tetanus, Diphtheria Vaccination/Date Given: Yes Hx Influenza Vaccination/Date Given: No Hx Pneumococcal Vaccination/Date Given: No Travel Risk - International Travel Have you traveled outside of the country in past 3 weeks: No - Emerging Infectious Disease Are you exhibiting symptoms associated with any current EIDs: No Symptoms: Abdominal Pain - Review of Systems Constitutional: Weakness Eyes: No Symptoms Ears, Nose, & Throat: No Symptoms Respiratory: No Symptoms Cardiac: Chest Pain, Palpitations Abdominal/Gastrointestinal: No Symptoms Genitourinary Symptoms: No Symptoms Musculoskeletal: No Symptoms Skin: No Symptoms Neurological: Headache Psychological: No Symptoms Endocrine: No Symptoms Hematologic/Lymphatic: No Symptoms Immunological/Allergic: No Symptoms All Other Systems: Reviewed and Negative - Past Medical History Pertinent Past Medical History: Yes Neurological History: Migraines ENT History: No Pertinent History Cardiac History: Other Respiratory History: Asthma Endocrine Medical History: Diabetes Type II, Hypothyroidism, Liver Disease Musculoskeletal History: Fibromyalgia GI Medical History: Gallbladder Disease History: No Pertinent History Psycho-Social History: Anxiety, Attention Deficit Disorder, Depression, Other Female Reproductive Disorders: Endometriosis Other Medical History: Pacemaker, x3, Hysterectomy (R Ovary retained), Cholecystectomy, L Cubital Tunnel Release, SEPSIS a year ago from UTI - Past Surgical History Past Surgical History: Yes Neuro Surgical History: No Pertinent History Cardiac: Pacemaker Respiratory: No Pertinent History Gastrointestinal: Cholecystectomy Genitourinary: No Pertinent History Musculoskeletal: No Pertinent History Female Surgical History: Hysterectomy Other Surgical History: c section x3, left oopherectomy and tubal removal,. Loop recorder device (removed) Significant Family History: no pertinent family hx, cancer (colon/breast), diabetes, other (Gall bladder disease) - Female History Hx Last Menstrual Period: hster - Social History Smoking Status: Former smoker Exposure to second hand smoke: No Drug Use: other - Social Determinants of Health Will the patient participate in the screening: Yes Do you worry about a steady place to live?: No In the past 12 months,have you had to go without utilities?: No Transportation Issues: No Has anyone in your support network made you feel unsafe?: No Have you or anyone in your house had to go w/o enough food: No - Nursing Vital Signs Nursing Vital Signs: Initial Vital Signs Temperature 97.1 F 05/27/25 23:05 Pulse Rate 62 05/27/25 23:05 Respiratory Rate 17 05/27/25 23:05 Blood Pressure 127/98 05/27/25 23:05 O2 Sat by Pulse Oximetry 99 05/27/25 23:05 Pain Scale Pain Intensity 9 - Physical Exam General Appearance: no apparent distress, alert, anxiety, obese Eye Exam: PERRL/EOMI, eyes nml inspection Ears, Nose, Throat Exam: normal ENT inspection, moist mucous membranes Neck Exam: normal inspection, non-tender, supple, full range of motion Respiratory Exam: normal breath sounds, chest tenderness, lungs clear, airway intact, No respiratory distress Cardiovascular Exam: regular rate/rhythm, normal heart sounds, normal peripheral pulses Gastrointestinal/Abdomen Exam: soft, normal bowel sounds, No tenderness Pelvic Exam: not done Rectal Exam: not done Back Exam: normal inspection, normal range of motion, No CVA tenderness, No vertebral tenderness Extremity Exam: normal inspection, normal range of motion, pelvis stable Neurologic Exam: alert, oriented x 3, cooperative, wide area network administrator II-XII nml as tested, sensation nml Skin Exam: normal color, warm, dry Lymphatic Exam: No adenopathy SpO2 Interpretation: normal O2 Delivery: Room Air - Course Nursing assessment & vital signs reviewed: Yes EKG Interpreted by Me: RATE (63), Sinus Rhythm, NORMAL AXIS, NORMAL INTERVALS, NORMAL QRS, NORMAL ST-T, Other (QTc is 412. No evidence of acute ischemia.) Ordered Tests: Active Orders 24 hr Category Date Time Status Requisition Approver STAT Care 05/27/25 23:07 Active EKG-ER Only STAT Care 05/27/25 23:05 Active IV Insertion STAT Care 05/27/25 23:05 Active Pulse Oximetry (ED) STAT Care 05/27/25 23:05 Active CBC W DIFF Stat Lab 05/27/25 23:23 Completed CMP Stat Lab 05/27/25 23:23 Completed CULTURE,URINE Stat Lab 05/27/25 23:36 Received D-DIMER QUANTITATIVE Stat Lab 05/27/25 23:23 Completed MAGNESIUM Stat Lab 05/27/25 23:23 Completed NT PRO BNPII Stat Lab 05/27/25 23:23 Completed PROTIME WITH INR Stat Lab 05/27/25 23:23 Completed TROPONIN Q4H Lab 05/27/25 23:23 Completed TROPONIN Q4H Lab 05/28/25 03:15 Ordered TROPONIN Q4H Lab 05/28/25 07:15 Ordered UA W/RFX UR CULTURE Stat Lab 05/27/25 23:36 Completed Medication Summary Discontinued Medications Generic Name Dose Route Start Last Admin Trade Name Freq PRN Reason Stop Dose Admin Hydromorphone HCl 1 mg 05/28/25 00:32 05/28/25 00:50 Hydromorphone 1 Mg/1ml Inj IV 05/28/25 00:33 1 mg STAT ONE Administration Hydromorphone HCl Confirm 05/28/25 00:49 Hydromorphone 1 Mg/1ml Inj Administered 05/28/25 00:50 Dose 1 mg .ROUTE .STK-MED ONE Ondansetron HCl 4 mg 05/28/25 00:00 05/28/25 00:10 Ondansetron Hcl 4 Mg/2 Ml Vial IV 05/28/25 00:01 4 mg STAT ONE Administration Ondansetron HCl Confirm 05/28/25 00:10 Ondansetron Hcl 4 Mg/2 Ml Vial Administered 05/28/25 00:11 Dose 4 mg .ROUTE .STK-MED ONE Lab/Rad Data: Laboratory Result Diagrams 05/27/25 23:23 05/27/25 23:23 Laboratory Results 05/27/25 05/27/25 05/27/25 Range/Units 23:36 23:23 23:23 WBC (3.98-10.04) x10^3/uL RBC (3.93-5.22) x10^6/uL Hgb (11.2-15.7) g/dL Hct (34.1-44.9) % MCV (79.4-94.8) fL MCH (25.6-32.2) pg MCHC (32.2-35.5) g/dL RDW (11.7-14.4) % Plt Count (182-369) x10^3/uL MPV (9.4-12.3) fL Gran % (34.0-71.1) % Immature Gran % (Auto) (0.001-0.429) % Nucleat RBC Rel Count (0.00-0.2) % Eos # (Auto) (0.04-0.36) x10^3/uL Immature Gran # (Auto) (0.001-0.031) x10^3u/L Absolute Lymphs (auto) (1.18-3.74) x10^3/uL Absolute Monos (auto) (0.24-0.86) x10^3/uL Absolute Nucleated RBC (0.00-0.012) x10^3u/L Lymphocytes % (19.3-51.7) % Monocytes % (4.7-12.5) % Eosinophils % (0.7-5.8) % Basophils % (0.1-1.2) % Absolute Granulocytes (1.56-6.13) x10^3/uL Basophils # (0.01-0.08) x10^3/uL PT (9.4-12.5) SECONDS INR (0.8-3.0) D-Dimer (0.0-0.50) mg/L Sodium (135-145) mmol/L Potassium (3.5-5.1) mmol/L Chloride (98-107) mmol/L Carbon Dioxide (22-30) mmol/L Anion Gap (5-15) MEQ/L BUN (7-17) mg/dL Creatinine (0.52-1.04) mg/dL Estimated GFR ML/MIN Glucose (74-106) mg/dL Calcium (8.4-10.2) mg/dL Magnesium (1.6-2.3) mg/dL Total Bilirubin (0.2-1.3) mg/dL AST (14-36) U/L ALT (0-35) U/L Alkaline Phosphatase (38-126) U/L Troponin I < 0.012 (0.000-0.033) ng/mL NT-Pro-B Natriuret Pep < 20.0 (<300) pg/mL Serum Total Protein (6.3-8.2) g/dL Albumin (3.5-5.0) g/dL Urine Color Yellow (Yellow) Urine Appearance Cloudy A (Clear) Urine pH 5.5 (4.6-8.0) Ur Specific [place] >=1.030 A (1.005-1.030) Urine Protein Negative (Negative) Urine Glucose (UA) Negative (Negative) mg/dL Urine Ketones Trace A (Negative) Urine Blood Negative (Negative) Urine Nitrite Negative (Negative) Urine Bilirubin Negative (Negative) Urine Urobilinogen 1.0 A (0.2) mg/dL Ur Leukocyte Esterase Trace A (Negative) U Hyaline Cast (Auto) 11-20 (0-2) /LPF Urine Microscopic RBC 6-10 A (0-5) /HPF Urine Microscopic WBC 21-50 A (0-5) /HPF Ur Epithelial Cells Few (None Seen) /HPF Urine Bacteria Many A (None Seen) /HPF Urine Culture Reflexed ORDERED SEPARATELY (NO) 05/27/25 05/27/25 05/27/25 Range/Units 23:23 23:23 23:23 WBC 5.0 (3.98-10.04) x10^3/uL RBC 4.68 (3.93-5.22) x10^6/uL Hgb 12.8 (11.2-15.7) g/dL Hct 38.2 (34.1-44.9) % MCV 81.6 (79.4-94.8) fL MCH 27.4 (25.6-32.2) pg MCHC 33.5 (32.2-35.5) g/dL RDW 12.1 (11.7-14.4) % Plt Count 236 (182-369) x10^3/uL MPV 10.0 (9.4-12.3) fL Gran % 57.5 (34.0-71.1) % Immature Gran % (Auto) 0.2 (0.001-0.429) % Nucleat RBC Rel Count 0.0 (0.00-0.2) % Eos # (Auto) 0.14 (0.04-0.36) x10^3/uL Immature Gran # (Auto) 0.01 (0.001-0.031) x10^3u/L Absolute Lymphs (auto) 1.65 (1.18-3.74) x10^3/uL Absolute Monos (auto) 0.32 (0.24-0.86) x10^3/uL Absolute Nucleated RBC 0.00 (0.00-0.012) x10^3u/L Lymphocytes % 32.9 (19.3-51.7) % Monocytes % 6.4 (4.7-12.5) % Eosinophils % 2.8 (0.7-5.8) % Basophils % 0.2 (0.1-1.2) % Absolute Granulocytes 2.88 (1.56-6.13) x10^3/uL Basophils # 0.01 (0.01-0.08) x10^3/uL PT 10.9 (9.4-12.5) SECONDS INR 1.00 (0.8-3.0) D-Dimer 0.31 (0.0-0.50) mg/L Sodium 136 (135-145) mmol/L Potassium 4.2 (3.5-5.1) mmol/L Chloride 109 H (98-107) mmol/L Carbon Dioxide 21 L (22-30) mmol/L Anion Gap 9.6 (5-15) MEQ/L BUN 17 (7-17) mg/dL Creatinine 0.71 (0.52-1.04) mg/dL Estimated GFR 114.4 ML/MIN Glucose 95 (74-106) mg/dL Calcium 8.8 (8.4-10.2) mg/dL Magnesium 2.0 (1.6-2.3) mg/dL Total Bilirubin 0.30 (0.2-1.3) mg/dL AST 34 (14-36) U/L ALT 25 (0-35) U/L Alkaline Phosphatase 51 (38-126) U/L Troponin I (0.000-0.033) ng/mL NT-Pro-B Natriuret Pep (<300) pg/mL Serum Total Protein 6.5 (6.3-8.2) g/dL Albumin 3.7 (3.5-5.0) g/dL Urine Color (Yellow) Urine Appearance (Clear) Urine pH (4.6-8.0) Ur Specific [place] (1.005-1.030) Urine Protein (Negative) Urine Glucose (UA) (Negative) mg/dL Urine Ketones (Negative) Urine Blood (Negative) Urine Nitrite (Negative) Urine Bilirubin (Negative) Urine Urobilinogen (0.2) mg/dL Ur Leukocyte Esterase (Negative) U Hyaline Cast (Auto) (0-2) /LPF Urine Microscopic RBC (0-5) /HPF Urine Microscopic WBC (0-5) /HPF Ur Epithelial Cells (None Seen) /HPF Urine Bacteria (None Seen) /HPF Urine Culture Reflexed (NO) - Progress Progress: improved, re-examined Air Movement: good Progress Note: 05/27/25 23:12 My medical decision making and the assignment of moderate complexity of this patient's medical issue today is based on review of the patient's past medical history, review of patient's medication list, review of patient drug allergy list, history present illness and physical findings on examination. The workup in this patient includes placement of intravenous line, CBC, CMP, BNP, D-dimer level, troponin level, twelve-lead EKG, magnesium level, urinalysis. I did not order a CT scan of the head since she had a normal/nonacute study approximately 2 months ago. She did not suffer any head injury. Her symptoms are similar and they have been chronically intermittent. Differential diagnosis includes but is not limited to exacerbation of her fibromyalgia, urinary tract infection, electrolyte abnormalities, arrhythmia, pots disease exacerbation, myocardial infarction, anxiety about health 05/28/25 01:45 I interpreted the patient's laboratory data results. Based on the laboratory data results, the patient does have evidence of a urinary tract infection. There are no other acute, emergent medical issues Blood Culture(s) Obtained: Yes Antibiotics given: Yes Counseled pt/family regarding: lab results, diagnosis, need for follow-up Medical Desision Making - Independent Historian Additional History obtained from: Stove Installer/EMT - Diagnostic Testing Diagnostic test were ordered, analyzed, and reviewed by me: Yes - Risk of complications The pt has a mod risk of morbidity or mortality based on: Need for prescription drug management - Departure Departure Disposition: Home Clinical Impression: UTI (urinary tract infection) Condition: Stable Critical Care Time: No Referrals: TIMA SANCHEZ MD [Primary Care Provider, [facility]] - Follow up/PCP as directed Additional Instructions: Drink plenty of clear liquids before advancing your diet. Call your primary care provider today, 05/28/2025, to make arrangement for follow-up appointment for further evaluation management. Prescriptions: Cefdinir 300 mg PO BID #14 cap
[2025-05-27 23:12] VITALS: TEMP 97.1
[2025-05-27 23:28] LABS: BASOPHIL % 0.2 % (0.1-1.2); Basophil (Absolute #) 0.01 x10^3/uL (0.01-0.08); Eosinophil (Absolute #) 0.14 x10^3/uL (0.04-0.36); Hematocrit 38.2 % (34.1-44.9); Hemoglobin 12.8 g/dL (11.2-15.7); IMMATURE GRAN # 0.01 x10^3u/L (0.001-0.031); IMMATURE GRAN % 0.2 % (0.001-0.429); Lymphocyte (Absolute #) 1.65 x10^3/uL (1.18-3.74); Mean Corpuscular Hemoglobin 27.4 pg (25.6-32.2); Mean Corpuscular Hgb Concent. 33.5 g/dL (32.2-35.5); Monocyte (Absolute #) 0.32 x10^3/uL (0.24-0.86); NUCLEATED RBC # 0.00 x10^3u/L (0.00-0.012); NUCLEATED RBC % 0.0 % (0.00-0.2); Platelet Count 236 x10^3/uL (182-369); Red Blood Count 4.68 x10^6/uL (3.93-5.22); White Blood Count 5.0 x10^3/uL (3.98-10.04)
[2025-05-27 23:44] LABS: INR 1.0 (0.8-3.0); PROTIME 10.9 SECONDS (9.4-12.5)
[2025-05-27 23:49] LABS: Calcium 8.8 mg/dL (8.4-10.2); Carbon Dioxide 21.0 mmol/L (22-30); Creatinine 1 0.71 mg/dL (0.52-1.04); EST GLOMERULAR FILTRATION RATE 114.4 ML/MIN; Glucose 95.0 mg/dL (74-106); Potassium 4.2 mmol/L (3.5-5.1); SGOT/AST 34.0 U/L (14-36); SGPT/ALT 25.0 U/L (0-35); Total Protein 6.5 g/dL (6.3-8.2)
[2025-05-28] MEDS: Zofran 4 MG/2 ML VIAL IV ONE (00:10)
[2025-05-28] MEDS ORDERED: Zofran 4 MG/2 ML VIAL ONE (00:10)
[2025-05-28] MEDS ORDERED: Hydromorphone 1 mg/ml Injection ONE (00:49)
[2025-05-28] MEDS: Hydromorphone 1 mg/ml Injection IV ONE (00:50)
[2025-05-28 01:35] LABS: Glucose, Urine Negative (Negative); Protein,Urine Dip Negative (Negative); WBC 21-50 /HPF (0-5)
[2025-05-28] MEDS ORDERED: Rocephin 1000 MG INJ ONE (01:46)
[2025-05-28] MEDS ORDERED: XYLOCAINE 1% HCL 20 ML MDV ONE (01:47)
[2025-05-28] MEDS: Rocephin 1000 MG INJ IM ONE (01:47)
[2025-05-28 02:04] VITALS: BP 122/87; PULSE 64; RESP 18; O2SAT 99
== END 2025-05-28 02:15 | disposition home or self-care (01) ==
LOC: ED 22:57
DX: N39.0 Urinary tract infection, site not specified (principal); R07.9 Chest pain, unspecified; M79.10 Myalgia, unspecified site; G43.909 Migraine, unspecified, not intractable, without status migrainosus; E11.9 Type 2 diabetes mellitus without complications; Z79.85 Long-term (current) use of injectable non-insulin antidiabetic drugs; Z79.899 Other long term (current) drug therapy

== ENCOUNTER 2025-07-03 07:04 | Day surgery (SDC) | payer MEDICARE, OTHER ==
[2025-07-03] MEDS ORDERED: CEFAZOLIN SODIUM ONE (07:32)
[2025-07-03] MEDS: TYLENOL EXTRA STRENGTH 500 MG PO ONE (07:39)
[2025-07-03] MEDS: NEURONTIN PO ONE (07:39)
[2025-07-03] MEDS: Decadron 4 MG PO ONE (07:39)
[2025-07-03 07:43] VITALS: RESP 16
[2025-07-03 07:53] LABS: BASOPHIL % 0.4 % (0.1-1.2); Basophil (Absolute #) 0.02 x10^3/uL (0.01-0.08); Eosinophil (Absolute #) 0.11 x10^3/uL (0.04-0.36); Hematocrit 39.2 % (34.1-44.9); Hemoglobin 12.9 g/dL (11.2-15.7); IMMATURE GRAN # 0.03 x10^3u/L (0.001-0.031); IMMATURE GRAN % 0.6 % (0.001-0.429); Lymphocyte (Absolute #) 1.28 x10^3/uL (1.18-3.74); Mean Corpuscular Hemoglobin 26.7 pg (25.6-32.2); Mean Corpuscular Hgb Concent. 32.9 g/dL (32.2-35.5); Monocyte (Absolute #) 0.25 x10^3/uL (0.24-0.86); NUCLEATED RBC # 0.00 x10^3u/L (0.00-0.012); NUCLEATED RBC % 0.0 % (0.00-0.2); Platelet Count 244 x10^3/uL (182-369); Red Blood Count 4.83 x10^6/uL (3.93-5.22); White Blood Count 5.0 x10^3/uL (3.98-10.04)
[2025-07-03 08:14] LABS: Calcium 8.8 mg/dL (8.4-10.2); Carbon Dioxide 22.0 mmol/L (22-30); Creatinine 1 0.63 mg/dL (0.52-1.04); EST GLOMERULAR FILTRATION RATE 119.3 ML/MIN; Glucose 101.0 mg/dL (74-106); Potassium 3.8 mmol/L (3.5-5.1); SGOT/AST 30.0 U/L (14-36); SGPT/ALT 19.0 U/L (0-35); Total Protein 7.1 g/dL (6.3-8.2)
[2025-07-03] MEDS ORDERED: Versed 2 MG/2 ML Injection ONE ×2 (09:01→11:23)
[2025-07-03] MEDS ORDERED: propofoL IV ONE (09:25)
[2025-07-03] MEDS ORDERED: Zofran 4 MG/2 ML VIAL ONE (09:25)
[2025-07-03] MEDS ORDERED: SUBLIMAZE 100 MCG/2 ML ONE (09:25)
[2025-07-03] MEDS ORDERED: Xylocaine-Mpf 2% 5 Ml Vial ONE (09:25)
[2025-07-03] MEDS ORDERED: Marcaine Mpf 0.5% Vial 30 Ml ONE (09:39)
[2025-07-03] MEDS ORDERED: EXPAREL 133 MG/10 ML VIAL IJ ONE (09:39)
--- NOTE | 2025-07-03 11:03 | XRAY ---
Indication: Left ankle arthroscopy with partial synovectomy and lateral ankle stabilization. Intraoperative fluoroscopy provided for 2 minute 54 seconds. 10 digital spot images submitted for interpretation ultimately demonstrates 2 tunnel radiolucencies traversing distal tibia/fibula with medial/lateral orthopedic buttons. Correlate with intraoperative findings/report.
--- NOTE | 2025-07-03 12:29 | XRAY ---
Two minutes and 54 seconds of fluoroscopy was used in surgery for a left ankle arthroscopy with partial synovectomy and lateral ankle stabilization.
[2025-07-03 12:47] VITALS: BP 130/71; PULSE 60; TEMP 96.8; O2SAT 100
--- NOTE | 2025-07-04 09:06 | OP ---
SURGERY DATE/TIME: 07/03/2025 [id number] PREOPERATIVE DIAGNOSES: 1) Left ankle synovitis. 2) Left ankle pain. 3) Acute syndesmotic disruption. 4) Peroneal tendonitis, peroneus brevis low-lying muscle belly. 5) Peroneus longus tenosynovitis. 6) Lateral ankle instability. POSTOPERATIVE DIAGNOSES: 1) Left ankle synovitis. 2) Left ankle pain. 3) Acute syndesmotic disruption. 4) Peroneal tendonitis, peroneus brevis low-lying muscle belly. 5) Peroneus longus tenosynovitis. 6) Lateral ankle instability. PROCEDURES: 1) Ankle arthroscopy, limited, left ankle. 2) Peroneus brevis tendon debridement, low-lying muscle belly. 3) Peroneus longus tenosynovectomy. 4) Open reduction and internal fixation of acute syndesmotic disruption. SURGEON: Lc Nielson DPM ASSISTANT PROFESSOR IN FAMILY STUDIES: PRETTY Turner ANESTHESIA: General plus preoperative popliteal and saphenous block. HEMOSTASIS: Thigh tourniquet set to 320 mmHg. INJECTABLES: See anesthesia report for details. MATERIALS: 2 [employer] ZipTight, 4-0 Monocryl, 3-0 nylon. INDICATIONS: The patient is a very pleasant 34-year-old female who presented to my service approximately 1 year ago with concerns of a foot drop and left ankle pain. Patient did have a significant amount of pain with ambulation and restricted range of motion. She has since improved in this respect with improved range of motion and muscle strength with the use of physical therapy and conservative modalities. In recent history, she did have a twisting injury where she fell into a gopher hole in her back yard. As a result, this resulted in significant amount of pain that was not responding to conservative therapy very quickly. Patient did have a positive medial tib-fib squeeze as well as pain with external rotation and pressure directly over the syndesmosis. Stress testing was attempted; however, patient would not tolerate. We also attempted to get an MRI; however, given the acute nature of the injury and the fact that the patient had a pacemaker, it was very difficult to get this scheduled in a timely fashion. We decided to go forward with stress views under fluoroscopic guidance and if necessary intervention. Patient was made aware of the game plan and we decided to proceed if positive. From that standpoint, patient has been made aware of all risks, complications, and benefits of surgical intervention at this time including, but not limited to, infection, hematoma, seroma, possibility of delayed wound healing, non-wound healing, and possible need for surgical intervention at a later date. No guarantees were provided as to the outcome. Plenty of time was allowed for the patient to ask questions, which were answered to her apparent satisfaction. It was at this time we decided to proceed. DESCRIPTION OF PROCEDURE AND FINDINGS: Patient was brought into the room and placed on the operating room table in the supine position. At this time, general anesthesia was administered until the patient was adequately sedated. At this time under fluoroscopic guidance, stress views were obtained. On a mortise view, external rotation test was provided of the syndesmosis, which showed gapping at the level of the tibiofibular syndesmosis incisura. A talar tilt was then performed, demonstrating no positive signs of calcaneofibular ligament instability. At the level of the ATFL, there was mild laxity, however, not significant enough to proceed with a repair of the ankle ligament. From that standpoint, we did go ahead and proceed. At this time, the left lower extremity was prepped and draped in the typical sterile fashion and lowered onto the surgical field. At this time, attention was directed to the anteromedial and anterolateral aspects of the ankle where the medial malleolus, lateral malleolus, and the anterior dell of where the talus was palpated. From that standpoint, these landmarks were identified and lines were drawn between them. From that standpoint, an anteromedial portal site was established. Insufflation fluid was utilized to insufflate the joint and then an 11-blade was utilized to make an incision, which was carried down to the level of skin, and then a curved mini was then utilized to break through the capsule. A smooth obturator and trocar were introduced. The obturator was then removed and then the 4.0 mm camera was then introduced and inspection of the joint took place. At this time, it was noted that there was minimal synovitis noted, however, some synovitis in the lateral gutter and the medial gutter, some delaminated cartilage anteriorly and then the syndesmosis was then probed. Utilizing a probe, the syndesmosis was freely mobile at this time, able to stick my probe as well as the arthroscopic shaver. The shaver was utilized to assess the gapping, which was approximately 4 mm due to the fact I was able to get the 3.4 mm shaver between the tibia and the fibula at this level. Once this was performed, debridement of the joint continued at the medial and lateral gutters; however, overall, the joint was qualitatively within reasonable limits. Once this occurred, stress views were once again confirmed, and decision was made to go ahead and reduce the syndesmosis with open reduction and internal fixation. An Esmarch was utilized to exsanguinate the leg. A linear incision was made with careful dissection to the level of the fibula at the level of the tibiofibular syndesmosis. Two ZipTight were then planned utilizing K-wires at the level of 2 cm above the syndesmosis and 4 cm above the syndesmosis. These were hand compressed and then passed through, gaining excellent compression through the syndesmosis, that when the stress views were once again taken demonstrating no gapping of the syndesmosis as previously seen. Dry scope was performed once again assessing the syndesmosis and no longer could I introduce the shaver between the tibia and the fibula. From that standpoint, the peroneus longus and peroneus brevis were inspected. The peroneus brevis was reasonably free of any issue; however, there was a low-lying muscle belly at the level of the superior peroneal retinaculum, which was resected at this time. Over the peroneus longus, the tenosynovium was removed from the 3 cm distal to the superior peroneal retinaculum and approximately 2 cm proximal to it. This demonstrated significant inflammatory fluid; however, no significant scarring or any issues within the peroneal tendon sheath. From that standpoint, copious amounts of sterile saline were utilized to flush the surgical site. Monocryl 4-0 was utilized to coapt the subcutaneous skin edges and then the 3-0 nylon was utilized in horizontal mattress type fashion to coapt the skin edges in an everted type fashion. A dressing consisting of Betadine, Adaptic, 4 x 4, Kerlix, ABD, and a well-padded posterior splint with sugar tong was applied to the patient's left lower extremity with the foot orthogonal relative to longitudinal axis of the leg. Patient was then reversed from anesthesia and returned to the postoperative anesthesia care unit with vital signs stable and vascular status intact. Patient handled the anesthesia as well as the procedure without significant complication. Postoperative orders as indicated in the patient's discharge chart.
== END 2025-07-03 13:11 | disposition home or self-care (01) ==
LOC: SDC 07:04
PROVIDERS: ATTEND Podiatrist Foot & Ankle Surgery
DX: M65.872 Other synovitis and tenosynovitis, left ankle and foot (principal); M25.572 Pain in left ankle and joints of left foot; S93.432A Sprain of tibiofibular ligament of left ankle, initial encounter; M76.72 Peroneal tendinitis, left leg; M25.372 Other instability, left ankle
CPT/HCPCS: 01470; 01480; 27680; 27691; 27829; 29897; 36415; 64447; 64450; 73610; 76000; 76937; 76942; 80053; 82947; 85025; C1713

== ENCOUNTER 2025-07-30 08:37 | Day surgery (SDC) | payer MEDICARE, OTHER ==
--- NOTE | 2025-07-30 08:08 | HP ---
HISTORY: A 34-year-old with history of POTS syndrome, poor access, needs port for IV therapy and ankle scope per Lc. She is on Eliquis. Has left chest pacemaker for sick sinus syndrome. PAST MEDICAL HISTORY: Type 2 diabetes, hypothyroidism, restless legs, heartburn, reflux, depression, as well as POTS syndrome. PAST SURGICAL HISTORY: Pacemaker, , and cholecystectomy in the past. HOME MEDICATIONS: Zoloft, Unithroid, semaglutide, ropinirole, potassium chloride, omeprazole, midodrine, metoprolol, Dexilant, hydrocodone, gabapentin, Eliquis, dicyclomine. ALLERGIES: Aspirin, Compazine, latex, Reglan, and also subcutaneous Toradol. FAMILY HISTORY: Diabetes and hypertension. SOCIAL HISTORY: No smoking or alcohol abuse. REVIEW OF SYSTEMS: Twelve systems reviewed. No chest pain or palpitations. All other systems negative or noncontributory as above and per preadmission questionnaire. PHYSICAL EXAMINATION: GENERAL: No acute distress. VITAL SIGNS: Height 5 feet 6 inches. BMI 32.28. HEENT: Sclerae nonicteric. NECK: No JVD. CARDIOVASCULAR: Regular rate and rhythm. RESPIRATORY: Clear. ABDOMEN: Soft. SKIN: Dry. EXTREMITIES: No cyanosis or edema. Ankle splint noted status post recent surgery by Lc. NEUROLOGIC: Alert and oriented, moving all extremities symmetrically with limitation in the ankle splint. PSYCHIATRIC: Appropriate mood and affect. IMPRESSION: History of postural orthostatic tachycardia syndrome, poor access, needs port for long-term IV access. Risks of bleeding, infection, pneumothorax, thrombosis, hematoma, seroma, aches, pains, catheter or port fracture or failure or infection possibly requiring removal or other procedures. We will proceed with outpatient general anesthetic Port-A-Cath placement. Otherwise, continue medications for restless legs syndrome, depression, thyroid disease, diabetes, and reflux.
[~2025-07-30 08:37] MED LIST: Xylocaine 1% Vial 30 ML PF IJ ONE
[2025-07-30] MEDS ORDERED: CEFAZOLIN SODIUM ONE (08:59)
[2025-07-30 09:19] VITALS: PULSE 60; RESP 18
[2025-07-30 10:05] LABS: Calcium 8.8 mg/dL (8.4-10.2); Carbon Dioxide 26.0 mmol/L (22-30); Creatinine 1 0.67 mg/dL (0.52-1.04); EST GLOMERULAR FILTRATION RATE 117.6 ML/MIN; Glucose 86.0 mg/dL (74-106)
[2025-07-30 10:08] LABS: Potassium 4.5 mmol/L (3.5-5.1)
[2025-07-30] MEDS ORDERED: Xylocaine-Mpf 2% 5 Ml Vial ONE (11:51)
[2025-07-30] MEDS ORDERED: propofoL IV ONE ×2 (11:51→12:15)
[2025-07-30] MEDS ORDERED: Versed 2 MG/2 ML Injection ONE (11:52)
[2025-07-30] MEDS ORDERED: SUBLIMAZE 100 MCG/2 ML ONE (11:52)
--- NOTE | 2025-07-30 12:50 | XRAY ---
Indication: Port placement. Intraoperative fluoroscopy provided for 3 seconds. 2 digital spot images submitted for interpretation demonstrates right Port-A-Cath with tip projecting over SVC. Correlate with intraoperative findings/report. Incidental incompletely visualized left dual lead pacemaker.
[2025-07-30 13:20] VITALS: O2SAT 99
[2025-07-30 13:22] VITALS: BP 101/64; TEMP 97.2
--- NOTE | 2025-08-01 12:35 | OP ---
SURGERY DATE/TIME: 07/30/2025 [id number] PREOPERATIVE DIAGNOSIS: Poor peripheral access, history of postural orthostatic tachycardia syndrome, and need for long-term intravenous access for intravenous treatments. POSTOPERATIVE DIAGNOSIS: Poor peripheral access, history of postural orthostatic tachycardia syndrome, and need for long-term intravenous access for intravenous treatments. PROCEDURE: 1) Tunneled Port-a-Cath placement right subclavian vein. 2) C-arm fluoroscopy interpretation and management. SURGEON: Heriberto Hyde MD ANESTHESIA: MAC, 0.25% Marcaine local. ESTIMATED BLOOD LOSS: Minimal. INDICATIONS: Above. Consent obtained. DESCRIPTION OF PROCEDURE AND FINDINGS: Patient was taken to operating room. MAC anesthesia induced. Patient was restless, kept moving her hands. She required additional MAC anesthesia per Marcelo Felder CRNA. In Trendelenburg position, after official time-out and no disagreement with planned procedure, 1% lidocaine local was infiltrated. An 18-gauge cannulation needle was inserted on the first pass. Good dark nonpulsatile venous returned. Guidewire passed without difficulty, confirmed in SVC by C-arm fluoroscopy. This was followed by anesthetizing the tunnel tract and port pocket. Transverse incision made. Inferior subcutaneous port pocket created with cautery. Port secured to chest wall with Prolene suture x2. Catheter tunneled down from the cannulation stab wound down to the port pocket area. Dilator breakaway sheath easily passed over the guidewire. The dilator and guidewire removed. The catheter began feeding down the breakaway sheath, however, the breakaway sheath must have been kinking slightly. It was necessary to pull the catheter back up into the cannulation stab wound and feed the guidewire down. Once this was done, the catheter then easily was able to feed over the guidewire. Breakaway sheath was removed. Catheter tip was seen to be in the distal SVC toward the top of the right atrial area where her pacemaker leads were going. Lung shields noted to be up bilaterally. Catheter was cut appropriate length, snapped on port with a hub. The port aspirated, dark nonpulsatile venous returned with ease, flushed with heparinized saline with ease. Tip was in a good location. Lung shields noted to be up bilaterally. Port was working fine. It was felt no further x-rays were necessary. Subcutaneous closed with 3-0 Vicryl. Skin closed with 4-0 Vicryl. Cannulation stab wound closed with 4-0 Vicryl. Steri-Strips and sterile dressing applied. Went out to the waiting room to look for family to discuss with them.
== END 2025-07-30 13:38 | disposition home or self-care (01) ==
LOC: SDC 08:37
PROVIDERS: ATTEND Surgery
DX: Z45.2 Encounter for adjustment and management of vascular access device (principal); G90.A Postural orthostatic tachycardia syndrome [POTS]; E11.9 Type 2 diabetes mellitus without complications
CPT/HCPCS: 36415; 36561; 77001; 80048; 82947; 93005; C1788

== ENCOUNTER 2025-08-25 13:11 | Emergency (ER) | payer MEDICARE, OTHER ==
[2025-08-25 13:27] VITALS: PULSE 77; TEMP 98.9; O2SAT 98
--- NOTE | 2025-08-25 13:42 | ERPHSYRPT ---
- History of Present Illness Time Seen by Provider: 08/25/25 13:18 Source: patient Exam Limitations: no limitations Patient Subjective Stated Complaint: pt went to [facility] for a UTI 3 days ago and was given cephalexin, pt c/o that she continues to have pain worse than p reviously Triage Nursing Assessment: Pt was brought to the ER by her mother, vitals wnl, rates pain as 7/10, pulses normal, skin n/w/d, has a port that accessed and getting lactated ringers 2x weekly for POTS, no difficulty breathing, denies chest pain, doesn't appear to be in any distress Physician History: Patient is here for lower abdominal pain, UTI-like symptoms. Patient complains of suprapubic pain. No flank pain, fever, chills, no temperature or tachycardia in triage. No early signs of pyelonephritis. Patient states that she tested positive for a UTI at [facility] 3 days ago. Placed on Keflex. States that she has been taking all of her antibiotics. Patient states that she is still having symptoms. Therefore would like to be reevaluated. Patient's urine culture has returned, and is positive for Staphylococcus saprophyticus. I was able to review urine culture in the EMR. Patient has no vomiting, complains of 7 out of 10 pain. Has been taking some csds-nyc-pliodal medication with minimum relief. Patient is taking PO well. Same number of urinations and defecations. The patient has no signs of altered mental status, nuchal rigidity, signs of meningitis. The patient is up-to-date on all vaccinations. Allergies/Adverse Reactions: ketorolac [From Toradol] Allergy (Severe, Verified 08/25/25 13:27) Hives latex Allergy (Severe, Verified 08/25/25 13:27) STOPPED BREATHING prochlorperazine [From Compazine] Allergy (Severe, Verified 08/25/25 13:27) Hives and shakes iodine Allergy (Intermediate, Verified 08/25/25 13:27) Rash Influenza Virus Vaccines Allergy (Mild, Verified 08/25/25 13:27) headache vomiting levothyroxine sodium [From Synthroid] Allergy (Mild, Verified 08/25/25 13:27) Migranes methylphenidate [From Ritalin] Allergy (Verified 08/25/25 13:27) migranes metoclopramide [From Reglan] Allergy (Verified 08/25/25 13:27) Hives aspirin Adverse Reaction (Mild, Verified 08/25/25 13:27) Vomiting medidate Adverse Reaction (Mild, Uncoded 08/25/25 13:27) VOMTIING Home Medications: Levothyroxine Sodium [Unithroid] 100 mcg PO DAILY 08/10/24 [History] Gabapentin [Neurontin ] 800 mg PO TID 09/21/24 [History] Potassium Chloride [Klor-Con M10] 10 meq PO DAILY 09/24/24 [History] Sertraline HCl [Zoloft] 100 mg PO DAILY 09/24/24 [History] Ropinirole HCl 1 mg PO TID 12/22/24 [History] Metoprolol Succinate 25 mg Xl* [Toprol-Xl 25MG Tablets] 25 mg PO HS 03/22/25 [History] Dicyclomine HCl 10 mg PO TID 06/13/25 [History] Midodrine HCl 2.5 mg PO TID 06/13/25 [History] Omeprazole 40 mg PO DAILY 06/13/25 [History] Semaglutide [Ozempic] 1 dose PO WEEKLY 06/29/25 [History] Hx Tetanus, Diphtheria Vaccination/Date Given: No Hx Influenza Vaccination/Date Given: No (allergic) Hx Pneumococcal Vaccination/Date Given: No Travel Risk - International Travel Have you traveled outside of the country in past 3 weeks: No - Emerging Infectious Disease Are you exhibiting symptoms associated with any current EIDs: Yes Symptoms: Abdominal Pain - Past Medical History Pertinent Past Medical History: Yes Neurological History: Migraines ENT History: No Pertinent History Cardiac History: Other Respiratory History: Asthma Endocrine Medical History: Diabetes Type II, Hypothyroidism, Liver Disease Musculoskeletal History: Fibromyalgia GI Medical History: Gallbladder Disease History: No Pertinent History Psycho-Social History: Anxiety, Attention Deficit Disorder, Depression, Other Female Reproductive Disorders: Endometriosis Other Medical History: Pacemaker, x3, Hysterectomy (R Ovary retained), Cholecystectomy, L Cubital Tunnel Release, SEPSIS a year ago from UTI - Past Surgical History Past Surgical History: Yes Neuro Surgical History: No Pertinent History Cardiac: Pacemaker Respiratory: No Pertinent History Gastrointestinal: Cholecystectomy Genitourinary: No Pertinent History Musculoskeletal: No Pertinent History Female Surgical History: Hysterectomy Other Surgical History: c section x3, left oopherectomy and tubal removal,. Loop recorder device (removed) Significant Family History: no pertinent family hx, cancer (colon/breast), diab etes, other (Gall bladder disease) - Female History Hx Last Menstrual Period: hster Hx Now: No (hysterectomy) - Social History Smoking Status: Current every day smoker How long have you smoked: vapes Exposure to second hand smoke: No Drug Use: marijuana, other - Social Determinants of Health Will the patient participate in the screening: Yes Do you worry about a steady place to live?: No Do you have any problems with any of the following?: No known problems In the past 12 months,have you had to go without utilities?: No Transportation Issues: No Has anyone in your support network made you feel unsafe?: No Have you or anyone in your house had to go w/o enough food: No - Nursing Vital Signs Nursing Vital Signs: Initial Vital Signs Temperature 98.9 F 08/25/25 13:22 Pulse Rate 77 08/25/25 13:22 Blood Pressure 122/86 08/25/25 13:22 O2 Sat by Pulse Oximetry 98 08/25/25 13:22 Pain Scale Pain Intensity 7 - Physical Exam SpO2 Interpretation: normal SpO2: 98 Comments: 08/25/25 13:44 History and physical was chaperoned by bedside nurseKinza. Review of Systems Constitutional: Negative for fever. HENT: Negative for congestion. Respiratory: Negative for shortness of breath. Cardiovascular: Negative for chest pain. Gastrointestinal: Negative for abdominal pain. Genitourinary: Dysuria, burning, suprapubic pain Musculoskeletal: Negative for back pain. Skin: Negative for rash. Neurological: Negative for headaches. Psychiatric/Behavioral: Negative for behavioral problems. All other systems reviewed and are negative. Physical Exam Vitals signs and nursing note reviewed. Constitutional: Appearance: Patient is well-developed. HENT: Head: Normocephalic and atraumatic. Eyes: Conjunctiva/sclera: Conjunctivae normal. Neck: Musculoskeletal: Normal range of motion. Trachea: No tracheal deviation. Cardiovascular: Rate and Rhythm: Normal rate. Heart sounds normal. Pulmonary: Effort: Pulmonary effort is normal. No respiratory distress. Abdominal: Palpations: Abdomen is soft. Minimal suprapubic pain without rebound or guarding Musculoskeletal: General: No deformity. Skin: General: Skin is warm and dry. Neurological/ Psychiatric: Mental Status: Mental status, behavior, interaction with environment is appropriate for patient's age and condition - Course Nursing assessment & vital signs reviewed: Yes Ordered Tests: Active Orders 24 hr Category Date Time Status CULTURE,URINE Stat Lab 08/25/25 13:37 Received UA W/RFX UR CULTURE Stat Lab 08/25/25 13:37 Completed Lab/Rad Data: Laboratory Results 08/25/25 Range/Units 13:37 Urine Color Dark Yellow A (Yellow) Urine Appearance Turbid A (Clear) Urine pH 5.5 (4.6-8.0) Ur Specific [place] 1.025 (1.005-1.030) Urine Protein 300 A (Negative) Urine Glucose (UA) Negative (Negative) mg/dL Urine Ketones Trace A (Negative) Urine Blood Large A (Negative) Urine Nitrite Negative (Negative) Urine Bilirubin Negative (Negative) Urine Urobilinogen 1.0 A (0.2) mg/dL Ur Leukocyte Esterase Large A (Negative) U Hyaline Cast (Auto) None Seen (0-2) /LPF Urine Microscopic RBC 6-10 A (0-5) /HPF Urine Microscopic WBC >100 A (0-5) /HPF Ur Epithelial Cells Few (None Seen) /HPF Urine Bacteria Few A (None Seen) /HPF Urine Culture Reflexed ORDERED SEPARATELY (NO) - Progress Progress: improved Progress Note: 08/25/25 13:45 Differential diagnosis includes UTI, bladder spasms, pyelonephritis, other abdominal process. Patient has no fever, tachycardia, back pain. No other signs of early pyelonephritis. I was able to review urine culture which was positive for Staphylococcus saprophyticus and susceptible to Macrobid. Reviewing patient's previous urine cultures, she has been positive for this before. Patient states that she does follow with a urologist. Encouraged her to seek follow-up within the next 2 to 3 days. Given that today is a Wednesday. She will need a reexam on Wednesday most likely. We will change patient's antibiotic to Macrobid, also give Pyridium and Flexeril to the patient going home. This should help with the pain from the UTI. I did instruct patient not to drive, operate machinery, other significant activities while taking Flexeril. I discussed all this with her at bedside with nurse, Kinza. Using shared decision making, we made decision to discharge patient home at this point in time. I did explain the risks and benefits of changing antibiotic, treatment. I do feel that this is the best course of action at this point in time. I did instruct the patient to return here immediately if she should have nausea, vomiting, not able to take her antibiotics, should she spike a fever, having increasing pain, pain that does not go away within the next 24 to 48 hours of taking the antibiotic. Counseled pt/family regarding: lab results, diagnosis, need for follow-up - Departure Departure Disposition: Home Clinical Impression: Acute cystitis with hematuria Condition: Stable Critical Care Time: No Referrals: LAVELLE DICKINSON MD [Primary Care Provider, [facility]] - Follow up/PCP as directed Instructions: Abdominal pain Prescriptions: Cyclobenzaprine HCl 10 mg [Flexeril 10 MG] 10 mg PO TID #12 tablet Nitrofurantoin Macro 100 mg [Macrobid 100MG Capsule] 100 mg PO BID 5 Days #10 cap Phenazopyridine HCl 200 mg [Pyridium 200 mg] 200 mg PO TID #6 tablet
[2025-08-25 13:43] VITALS: BP 141/90
[2025-08-25 13:58] LABS: Glucose, Urine Negative (Negative); Protein,Urine Dip 300 (Negative); WBC >100 /HPF (0-5)
== END 2025-08-25 13:54 | disposition home or self-care (01) ==
LOC: ED 13:11
DX: N30.01 Acute cystitis with hematuria (principal); B95.7 Other staphylococcus as the cause of diseases classified elsewhere; R10.24 Suprapubic pain; E11.9 Type 2 diabetes mellitus without complications; Z79.85 Long-term (current) use of injectable non-insulin antidiabetic drugs; Z79.899 Other long term (current) drug therapy; Z72.0 Tobacco use

== ENCOUNTER 2025-09-19 07:51 | Day surgery (SDC) | payer MEDICARE, OTHER ==
[2025-09-19] MEDS ORDERED: LIDOCAINE HCL 2% 100 MG/5 ML IJ ONE (07:52)
[2025-09-19] MEDS ORDERED: propofoL IV ONE (09:29)
--- NOTE | 2025-09-19 11:58 | XRAY ---
Indication: Bilateral L4-S1 MBB. Intraoperative fluoroscopy provided for 36 seconds. Single digital spot image submitted for interpretation demonstrates posterior needle tips projecting over expected left and right L4-S1 nerve roots. Correlate with intraoperative findings/report.
--- NOTE | 2025-09-19 13:04 | XRAY ---
36 seconds of fluoroscopy was used in surgery for a bilateral L4-S1 MBB.
[2025-09-19] MEDS ORDERED: Lactated Ringers 1,000 ML IV ONE (13:08)
== END 2025-09-19 10:36 | disposition home or self-care (01) ==
LOC: SDC-PAIN 07:51
PROVIDERS: ATTEND Psychiatry & Neurology Pain Medicine
DX: M47.817 Spondylosis without myelopathy or radiculopathy, lumbosacral region (principal); E11.9 Type 2 diabetes mellitus without complications

== ENCOUNTER 2025-10-09 14:50 | Emergency (ER) | payer MEDICARE, OTHER ==
--- NOTE | 2025-10-09 15:11 | ERPHSYRPT ---
- History of Present Illness Time Seen by Provider: 10/09/25 15:07 Source: patient Exam Limitations: no limitations Allergies/Adverse Reactions: ketorolac [From Toradol] Allergy (Severe, Verified 08/25/25 13:27) Hives latex Allergy (Severe, Verified 08/25/25 13:27) STOPPED BREATHING prochlorperazine [From Compazine] Allergy (Severe, Verified 08/25/25 13:27) Hives and shakes iodine Allergy (Intermediate, Verified 08/25/25 13:27) Rash Influenza Virus Vaccines Allergy (Mild, Verified 08/25/25 13:27) headache vomiting levothyroxine sodium [From Synthroid] Allergy (Mild, Verified 08/25/25 13:27) Migranes methylphenidate [From Ritalin] Allergy (Verified 08/25/25 13:27) migranes metoclopramide [From Reglan] Allergy (Verified 08/25/25 13:27) Hives aspirin Adverse Reaction (Mild, Verified 08/25/25 13:27) Vomiting medidate Adverse Reaction (Mild, Uncoded 08/25/25 13:27) VOMTIING Home Medications: Levothyroxine Sodium [Unithroid] 100 mcg PO DAILY 08/10/24 [History] Gabapentin [Neurontin ] 800 mg PO TID 09/21/24 [History] Potassium Chloride [Klor-Con M10] 10 meq PO DAILY 09/24/24 [History] Sertraline HCl [Zoloft] 100 mg PO DAILY 09/24/24 [History] Ropinirole HCl 1 mg PO TID 12/22/24 [History] Metoprolol Succinate 25 mg Xl* [Toprol-Xl 25MG Tablets] 25 mg PO HS 03/22/25 [History] Dicyclomine HCl 10 mg PO TID 06/13/25 [History] Midodrine HCl 2.5 mg PO TID 06/13/25 [History] Omeprazole 40 mg PO DAILY 06/13/25 [History] Semaglutide [Ozempic] 1 dose PO WEEKLY 06/29/25 [History] Tramadol HCl 50 mg [Ultram 50 mg] 50 mg PO Q6H PRN PRN 09/03/25 [History] Hx Tetanus, Diphtheria Vaccination/Date Given: No Hx Influenza Vaccination/Date Given: No (allergic) Hx Pneumococcal Vaccination/Date Given: No Travel Risk - Emerging Infectious Disease Are you exhibiting symptoms associated with any current EIDs: Yes Symptoms: Abdominal Pain - Past Medical History Pertinent Past Medical History: Yes Neurological History: Migraines ENT History: No Pertinent History Cardiac History: Other Respiratory History: Asthma Endocrine Medical History: Diabetes Type II, Hypothyroidism, Liver Disease Musculoskeletal History: Fibromyalgia GI Medical History: Gallbladder Disease History: No Pertinent History Psycho-Social History: Anxiety, Attention Deficit Disorder, Depression, Other Female Reproductive Disorders: Endometriosis Other Medical History: Pacemaker, x3, Hysterectomy (R Ovary retained), Cholecystectomy, L Cubital Tunnel Release, SEPSIS a year ago from UTI - Past Surgical History Past Surgical History: Yes Neuro Surgical History: No Pertinent History Cardiac: Pacemaker Respiratory: No Pertinent History Gastrointestinal: Cholecystectomy Genitourinary: No Pertinent History Musculoskeletal: No Pertinent History Female Surgical History: Hysterectomy Other Surgical History: c section x3, left oopherectomy and tubal removal,. Loop recorder device (removed) Significant Family History: no pertinent family hx, cancer (colon/breast), diabetes, other (Gall bladder disease) - Female History Hx Last Menstrual Period: hster - Social History Smoking Status: Never smoker - Social Determinants of Health Will the patient participate in the screening: Yes - Departure Referrals: LAVELLE DICKINSON MD [Primary Care Provider, [facility]] - Follow up/PCP as directed
[2025-10-09 15:14] VITALS: TEMP 98.3
[2025-10-09 15:26] LABS: HCG URINE TEST NEGATIVE (NEGATIVE)
[2025-10-09 15:30] LABS: Glucose, Urine Negative (Negative); Protein,Urine Dip Trace (Negative); WBC >100 /HPF (0-5)
--- NOTE | 2025-10-09 15:35 | ERPHSYRPT ---
- History of Present Illness Time Seen by Provider: 10/09/25 15:07 Historian: patient Exam Limitations: no limitations Patient Subjective Stated Complaint: PT STATES SHE IS HAVING ABD PAIN Triage Nursing Assessment: PT ARRIVES TO THE ED VIA PRIVATE VEHICLE. PT IS ABLE TO AMBULATE INTO THE ED WITHOUT DIFFICULTY. PT IS ALERT AND ORIENTED X4, NO SIGNS OF RESPIRATORY DISTRESS, PULSES EQUAL BILATERALLY. PT STATES THAT FOR THE PAST 3 DAYS SHE HAS HAD SHARP/STABBING/CONSTANT 7/10 RIGHT UPPER QUADRANT ABDOMINAL PAIN THAT RADIATES INTO HER BACK. PT STATES THAT SHE HAS NOT BEEN ABLE TO HOLD DOWN ANY ORAL INTAKE FOR TWO DAYS. PT ABDOMEN IS HYPERACTIVE IN ALL FOUR QUANDRANTS , SOFT, WITH TENDERNESS ON PALPATION. PT STATES SHE HAS BEEN EXPERIENCING N/V/D FOR THE PAST 2 DAYS WELL. PT WAS SEEN TODAY AT HER PCP OFFICE WHO SENT HER HERE TO BE EVALUATED D/T ALL OF HER CHRONIC ILLNESSES. Physician History: Patient is a 35-year-old female history of migraine headache asthma type 2 diabetes hypothyroidism liver disease anxiety ADD, depression endometriosis presents to our ED as a referral from her primary care doctor for evaluation of right lower quadrant pain. Symptoms started 3 days ago. Pain described as a sharp stabbing sensation rated 7 out of 10. Pain is located near the right lower quadrant. RN notes right upper quadrant however the pain appears to be lower. Pain tends to radiate towards her back. No trauma no fever. Pain is associated with nausea vomiting and diarrhea. Patient voices no other complaints or concerns at this time. Portions of this note were created with voice recognition technology. There may be grammatical, spelling, punctuation or sound alike errors Timing/Duration: day(s) (2 days) Activities at Onset: none Abdominal Pain Onset Location: RLQ Pain Radiation: back Severity of Pain-Max: moderate Severity of Pain-Current: mild Modifying Factors: Improves With: nothing Associated Symptoms: denies symptoms Previous symptoms: no prior history Allergies/Adverse Reactions: ketorolac [From Toradol] Allergy (Severe, Verified 10/09/25 15:23) Hives latex Allergy (Severe, Verified 10/09/25 15:23) STOPPED BREATHING prochlorperazine [From Compazine] Allergy (Severe, Verified 10/09/25 15:23) Hives and shakes iodine Allergy (Intermediate, Verified 10/09/25 15:23) Rash Influenza Virus Vaccines Allergy (Mild, Verified 10/09/25 15:23) headache vomiting levothyroxine sodium [From Synthroid] Allergy (Mild, Verified 10/09/25 15:23) Migranes methylphenidate [From Ritalin] Allergy (Verified 10/09/25 15:23) migranes metoclopramide [From Reglan] Allergy (Verified 10/09/25 15:23) Hives aspirin Adverse Reaction (Mild, Verified 10/09/25 15:23) Vomiting medidate Adverse Reaction (Mild, Uncoded 10/09/25 15:23) VOMTIING Home Medications: Levothyroxine Sodium [Unithroid] 100 mcg PO DAILY 08/10/24 [History] Gabapentin [Neurontin ] 800 mg PO TID 09/21/24 [History] Potassium Chloride [Klor-Con M10] 10 meq PO DAILY 09/24/24 [History] Sertraline HCl [Zoloft] 100 mg PO DAILY 09/24/24 [History] Ropinirole HCl 1 mg PO TID 12/22/24 [History] Metoprolol Succinate 25 mg Xl* [Toprol-Xl 25MG Tablets] 25 mg PO HS 03/22/25 [History] Dicyclomine HCl 10 mg PO TID 06/13/25 [History] Midodrine HCl 2.5 mg PO TID 06/13/25 [History] Omeprazole 40 mg PO DAILY 06/13/25 [History] Zolpidem Tartrate [Ambien] 5 mg PO HS 10/09/25 [History] Hx Tetanus, Diphtheria Vaccination/Date Given: Yes Hx Influenza Vaccination/Date Given: No Hx Pneumococcal Vaccination/Date Given: No Immunizations Up to Date: Yes Travel Risk - International Travel Have you traveled outside of the country in past 3 weeks: No - Emerging Infectious Disease Are you exhibiting symptoms associated with any current EIDs: Yes Symptoms: Abdominal Pain, Diarrhea - Review of Systems All Other Systems: Reviewed and Negative - Past Medical History Pertinent Past Medical History: Yes Neurological History: Migraines ENT History: No Pertinent History Cardiac History: Other Respiratory History: Asthma Endocrine Medical History: Diabetes Type II, Hypothyroidism, Liver Disease Musculoskeletal History: Fibromyalgia GI Medical History: Gallbladder Disease History: No Pertinent History Psycho-Social History: Anxiety, Attention Deficit Disorder, Depression, Other Female Reproductive Disorders: Endometriosis Other Medical History: Pacemaker, x3, Hysterectomy (R Ovary retained), Cholecystectomy, L Cubital Tunnel Release, SEPSIS a year ago from UTI, POTS - Past Surgical History Past Surgical History: Yes Neuro Surgical History: No Pertinent History Cardiac: Pacemaker Respiratory: No Pertinent History Gastrointestinal: Cholecystectomy Genitourinary: No Pertinent History Musculoskeletal: No Pertinent History Female Surgical History: Hysterectomy Other Surgical History: c section x3, left oopherectomy and tubal removal,. Loop recorder device (removed), PORT PLACEMENT Significant Family History: no pertinent family hx, cancer (colon/breast), diabetes, other (Gall bladder disease) - Female History Hx Last Menstrual Period: PT HAS HAD A HYSTERECTOMY Hx Now: No - Social History Smoking Status: Never smoker Exposure to second hand smoke: No Drug Use: other - Social Determinants of Health Will the patient participate in the screening: Yes Do you worry about a steady place to live?: No Do you have any problems with any of the following?: No known problems In the past 12 months,have you had to go without utilities?: No Transportation Issues: No Has anyone in your support network made you feel unsafe?: No Have you or anyone in your house had to go w/o enough food: No - Nursing Vital Signs Nursing Vital Signs: Initial Vital Signs Temperature 98.3 F 10/09/25 15:11 Pulse Rate 70 10/09/25 15:11 Respiratory Rate 18 10/09/25 15:11 Blood Pressure 136/84 10/09/25 15:11 O2 Sat by Pulse Oximetry 98 10/09/25 15:11 Pain Scale Pain Intensity 7 - Physical Exam General Appearance: no apparent distress, alert Eye Exam: PERRL/EOMI, eyes nml inspection Ears, Nose, Throat Exam: normal ENT inspection, pharynx normal, moist mucous membranes Neck Exam: normal inspection, full range of motion Respiratory Exam: normal breath sounds, lungs clear, airway intact, No respiratory distress Cardiovascular Exam: regular rate/rhythm, normal heart sounds Gastrointestinal/Abdomen Exam: soft, tenderness (Right lower quadrant tenderness to palpation), No mass Back Exam: normal inspection, normal range of motion, No CVA tenderness, No vertebral tenderness Extremity Exam: normal inspection, normal range of motion, pelvis stable Neurologic Exam: alert, oriented x 3, cooperative, normal mood/affect, sensation nml, No motor deficits Skin Exam: normal color, warm, dry Lymphatic Exam: No adenopathy SpO2 Interpretation: normal SpO2: 98 O2 Delivery: Room Air - Course Nursing assessment & vital signs reviewed: Yes - CT Exams Abdomen/Pelvis CT Interpretation: Tele-radiologist Report (Splenomegaly, lung nodule,) Ordered Tests: Active Orders 24 hr Category Date Time Status IV Insertion STAT Care 10/09/25 15:09 Active ABDOMEN AND PELVIS W/0 CONTRAS [CT] Stat Exams 10/09/25 15:10 Completed CBC W DIFF Stat Lab 10/09/25 15:48 Completed CMP Stat Lab 10/09/25 15:48 Completed CULTURE,URINE Stat Lab 10/09/25 15:14 Received HCG QUALITATIVE, URINE Stat Lab 10/09/25 15:14 Completed LIPASE Stat Lab 10/09/25 15:48 Completed TROPONIN Q4H Lab 10/09/25 15:48 Completed TROPONIN Q4H Lab 10/09/25 19:15 Ordered TROPONIN Q4H Lab 10/09/25 23:15 Ordered UA W/RFX UR CULTURE Stat Lab 10/09/25 15:14 Completed Medication Summary Generic Name Dose Route Start Last Admin Trade Name Freq PRN Reason Stop Dose Admin Sodium Chloride 1,000 mls @ 100 mls/hr 10/09/25 15:15 10/09/25 15:55 Sodium Chloride 0.9% 1000 Ml IV 11/08/25 15:14 100 mls/hr .Q10H JAH Administration Discontinued Medications Generic Name Dose Route Start Last Admin Trade Name Freq PRN Reason Stop Dose Admin Acetaminophen 100 mls @ 400 mls/hr 10/09/25 16:06 10/09/25 16:30 Ofirmev IV 10/09/25 16:20 Infused STAT ONE Infusion Acetaminophen Confirm 10/09/25 16:12 Ofirmev Administered 10/09/25 16:13 Dose 100 mls @ ud IV .STK-MED ONE Ceftriaxone Sodium 1 gm in 100 mls @ 200 mls/hr 10/09/25 17:15 10/09/25 17:50 Rocephin 1 Gm / 100 Ml Nacl IV 10/09/25 17:44 Infused STAT ONE Infusion Ceftriaxone Sodium Confirm 10/09/25 17:18 Rocephin 1 Gm / 100 Ml Nacl Administered 10/09/25 17:19 Dose 1 gm in 100 mls @ ud IV .STK-MED ONE Ketamine HCl 10 mg 10/09/25 18:13 Ketamine Hcl 50 Mg/Ml IV 10/09/25 18:14 STAT ONE Lab/Rad Data: Laboratory Result Diagrams 10/09/25 15:48 10/09/25 15:48 Laboratory Results 10/09/25 10/09/25 10/09/25 Range/Units 15:48 15:48 15:48 WBC 5.0 (3.98-10.04) x10^3/uL RBC 4.83 (3.93-5.22) x10^6/uL Hgb 12.5 (11.2-15.7) g/dL Hct 38.4 (34.1-44.9) % MCV 79.5 (79.4-94.8) fL MCH 25.9 (25.6-32.2) pg MCHC 32.6 (32.2-35.5) g/dL RDW 12.4 (11.7-14.4) % Plt Count 198 (182-369) x10^3/uL MPV 9.8 (9.4-12.3) fL Gran % 66.3 (34.0-71.1) % Immature Gran % (Auto) 0.4 (0.001-0.429) % Nucleat RBC Rel Count 0.0 (0.00-0.2) % Eos # (Auto) 0.05 (0.04-0.36) x10^3/uL Immature Gran # (Auto) 0.02 (0.001-0.031) x10^3u/L Absolute Lymphs (auto) 1.36 (1.18-3.74) x10^3/uL Absolute Monos (auto) 0.25 (0.24-0.86) x10^3/uL Absolute Nucleated RBC 0.00 (0.00-0.012) x10^3u/L Lymphocytes % 27.1 (19.3-51.7) % Monocytes % 5.0 (4.7-12.5) % Eosinophils % 1.0 (0.7-5.8) % Basophils % 0.2 (0.1-1.2) % Absolute Granulocytes 3.33 (1.56-6.13) x10^3/uL Basophils # 0.01 (0.01-0.08) x10^3/uL Sodium 136 (135-145) mmol/L Potassium 3.8 (3.5-5.1) mmol/L Chloride 105 (98-107) mmol/L Carbon Dioxide 22 (22-30) mmol/L Anion Gap 12.8 (5-15) MEQ/L BUN 10 (7-17) mg/dL Creatinine 0.71 (0.52-1.04) mg/dL Estimated GFR 113.6 ML/MIN Glucose 104 (74-106) mg/dL Calcium 8.9 (8.4-10.2) mg/dL Total Bilirubin 0.50 (0.2-1.3) mg/dL AST 34 (14-36) U/L ALT 27 (0-35) U/L Alkaline Phosphatase 72 (38-126) U/L Troponin I < 0.012 (0.000-0.033) ng/mL Serum Total Protein 7.0 (6.3-8.2) g/dL Albumin 4.0 (3.5-5.0) g/dL Lipase 139 (23-300) U/L Urine Color (Yellow) Urine Appearance (Clear) Urine pH (4.6-8.0) Ur Specific [place] (1.005-1.030) Urine Protein (Negative) Urine Glucose (UA) (Negative) mg/dL Urine Ketones (Negative) Urine Blood (Negative) Urine Nitrite (Negative) Urine Bilirubin (Negative) Urine Urobilinogen (0.2) mg/dL Ur Leukocyte Esterase (Negative) U Hyaline Cast (Auto) (0-2) /LPF Urine Microscopic RBC (0-5) /HPF Urine Microscopic WBC (0-5) /HPF Ur Epithelial Cells (None Seen) /HPF Urine Bacteria (None Seen) /HPF Urine Culture Reflexed (NO) Urine HCG, Qual (NEGATIVE) 10/09/25 10/09/25 Range/Units 15:14 15:14 WBC (3.98-10.04) x10^3/uL RBC (3.93-5.22) x10^6/uL Hgb (11.2-15.7) g/dL Hct (34.1-44.9) % MCV (79.4-94.8) fL MCH (25.6-32.2) pg MCHC (32.2-35.5) g/dL RDW (11.7-14.4) % Plt Count (182-369) x10^3/uL MPV (9.4-12.3) fL Gran % (34.0-71.1) % Immature Gran % (Auto) (0.001-0.429) % Nucleat RBC Rel Count (0.00-0.2) % Eos # (Auto) (0.04-0.36) x10^3/uL Immature Gran # (Auto) (0.001-0.031) x10^3u/L Absolute Lymphs (auto) (1.18-3.74) x10^3/uL Absolute Monos (auto) (0.24-0.86) x10^3/uL Absolute Nucleated RBC (0.00-0.012) x10^3u/L Lymphocytes % (19.3-51.7) % Monocytes % (4.7-12.5) % Eosinophils % (0.7-5.8) % Basophils % (0.1-1.2) % Absolute Granulocytes (1.56-6.13) x10^3/uL Basophils # (0.01-0.08) x10^3/uL Sodium (135-145) mmol/L Potassium (3.5-5.1) mmol/L Chloride (98-107) mmol/L Carbon Dioxide (22-30) mmol/L Anion Gap (5-15) MEQ/L BUN (7-17) mg/dL Creatinine (0.52-1.04) mg/dL Estimated GFR ML/MIN Glucose (74-106) mg/dL Calcium (8.4-10.2) mg/dL Total Bilirubin (0.2-1.3) mg/dL AST (14-36) U/L ALT (0-35) U/L Alkaline Phosphatase (38-126) U/L Troponin I (0.000-0.033) ng/mL Serum Total Protein (6.3-8.2) g/dL Albumin (3.5-5.0) g/dL Lipase (23-300) U/L Urine Color Yellow (Yellow) Urine Appearance Cloudy A (Clear) Urine pH 6.5 (4.6-8.0) Ur Specific [place] 1.020 (1.005-1.030) Urine Protein Trace A (Negative) Urine Glucose (UA) Negative (Negative) mg/dL Urine Ketones Trace A (Negative) Urine Blood NHT (Negative) Urine Nitrite Negative (Negative) Urine Bilirubin Negative (Negative) Urine Urobilinogen 1.0 A (0.2) mg/dL Ur Leukocyte Esterase Large A (Negative) U Hyaline Cast (Auto) NONE SEEN (0-2) /LPF Urine Microscopic RBC 3-5 (0-5) /HPF Urine Microscopic WBC >100 A (0-5) /HPF Ur Epithelial Cells None Seen (None Seen) /HPF Urine Bacteria Few A (None Seen) /HPF Urine Culture Reflexed YES (NO) Urine HCG, Qual NEGATIVE (NEGATIVE) - Progress Progress: improved Progress Note: Patient is a 35-year-old female history of migraine headache asthma type 2 diabetes hypothyroidism liver disease anxiety ADD, depression endometriosis presents to our ED as a referral from her primary care doctor for evaluation of right lower quadrant pain. Symptoms started 3 days ago. Pain described as a sharp stabbing sensation rated 7 out of 10. Pain is located near the right lower quadrant. RN notes right upper quadrant however the pain appears to be lower. Pain tends to radiate towards her back Abdominal tenderness. Physical exam otherwise nonremarkable. Workup reveals a urinary tract infection. Patient received a dose of Rocephin in our ED. A prescription for Keflex forwarded to patient's pharmacy. Laboratory workup otherwise unremarkable. CT abdomen pelvis shows an enlarged spleen and a lung nodule otherwise no acute pathology. We will discharge patient home. Patient agrees to follow-up with primary care doctor within 48 hours for reevaluation. She voices no other complaints or concerns at this time. History obtained from patient Differential diagnosis includes kidney stone, appendicitis, colitis Patient requesting Dilaudid for pain control. I explained to patient that Dilaudid is not indicated to treat urinary tract infection pain. In this case it is not an option for pain control at this time. Complexity of problem addressed is moderate acute complicated. No critical care time. Complexity of data reviewed and analyzed is moderate. Test ordered chest reviewed results analyzed and correlated clinically with history and physical exam. Risk of complication and or risk of morbidity/mortality of patient management is moderate. A prescription for Keflex forwarded to patient's pharmacy. Vital stable. Time spent to discharge patient is approximately 15 minutes. Plan of care established for shared decision making. No social determinants of health present to impede follow-up. Portions of this note were created with voice recognition technology. There may be grammatical, spelling, punctuation or sound alike errors 10/09/25 18:21 10/09/25 18:24 Counseled pt/family regarding: lab results, diagnosis, rad results - Departure Departure Disposition: Home Clinical Impression: Abdominal pain, Urinary tract infection, Splenomegaly, Lung nodule Condition: Stable Critical Care Time: No Referrals: LAVELLE DICKINSON MD [Primary Care Provider, [facility]] - Follow up/PCP as directed Additional Instructions: Discharge/Care Plan JOHAN MLEARA was seen on 10/09/25 in the Emergency Room. The patient was counseled regarding Diagnosis,Lab results, Imaging studies, need for follow up and when to return to the Emergency Room. Prescriptions given: Discharge Note I have spoken with the patient and/or caregivers. I have explained the patient's condition, diagnosis and treatment plan based on the information available to me at this time. I have answered the patient's and/or caregiver's questions and addressed any concerns. The patient and/or caregivers have as good understanding of the patient's diagnosis, condition and treatment plan as can be expected at this point. The vital signs have been stable. The patient's condition is stable and appropriate for discharge from the emergency department. The patient will pursue further outpatient evaluation with the primary care physician or other designated or consulting physician as outlined in the discharge instructions. The patient and/or caregivers are agreeable to this plan of care and follow-up instructions have been explained in detail. The patient and/or caregivers have received these instruction. The patient/and or caregivers are aware that any significant change in condition or worsening of symptoms should prompt an immediate return to this or the closest emergency department or call 911. Prescriptions: Cephalexin Mh 500 mg [Keflex 500 mg] 500 mg PO TID #21 cap
[2025-10-09 16:09] LABS: BASOPHIL % 0.2 % (0.1-1.2); Basophil (Absolute #) 0.01 x10^3/uL (0.01-0.08); Eosinophil (Absolute #) 0.05 x10^3/uL (0.04-0.36); Hematocrit 38.4 % (34.1-44.9); Hemoglobin 12.5 g/dL (11.2-15.7); IMMATURE GRAN # 0.02 x10^3u/L (0.001-0.031); IMMATURE GRAN % 0.4 % (0.001-0.429); Lymphocyte (Absolute #) 1.36 x10^3/uL (1.18-3.74); Mean Corpuscular Hemoglobin 25.9 pg (25.6-32.2); Mean Corpuscular Hgb Concent. 32.6 g/dL (32.2-35.5); Monocyte (Absolute #) 0.25 x10^3/uL (0.24-0.86); NUCLEATED RBC # 0.00 x10^3u/L (0.00-0.012); NUCLEATED RBC % 0.0 % (0.00-0.2); Platelet Count 198 x10^3/uL (182-369); Red Blood Count 4.83 x10^6/uL (3.93-5.22); White Blood Count 5.0 x10^3/uL (3.98-10.04)
[2025-10-09] MEDS ORDERED: OFIRMEV 100 ML IV ONE (16:12)
[2025-10-09] MEDS: OFIRMEV 100 ML IV ONE (16:15)
[2025-10-09 16:22] LABS: Calcium 8.9 mg/dL (8.4-10.2); Carbon Dioxide 22.0 mmol/L (22-30); Creatinine 1 0.71 mg/dL (0.52-1.04); EST GLOMERULAR FILTRATION RATE 113.6 ML/MIN; Glucose 104.0 mg/dL (74-106); Potassium 3.8 mmol/L (3.5-5.1); SGOT/AST 34.0 U/L (14-36); SGPT/ALT 27.0 U/L (0-35); Total Protein 7.0 g/dL (6.3-8.2)
[2025-10-09] MEDS ORDERED: ROCEPHIN 1 GM / 100 ML NaCl 1 GM/100 ML IVPB IV ONE (17:18)
[2025-10-09] MEDS: ROCEPHIN 1 GM / 100 ML NaCl 1 GM/100 ML IVPB IV ONE (17:20)
--- NOTE | 2025-10-09 17:29 | XRAY ---
CLINICAL HISTORY: pain COMPARISON: 03/13/2025 TECHNIQUE: Non-contrast CT of the abdomen and pelvis was performed with the following protocol: axial images and reconstructed coronal and sagittal images. No intravenous contrast was administered. One of the following dose reduction techniques was utilized for this exam: Automated exposure control, adjustment of the mA and/or kV according to patient size, and use of iterative reconstruction. FINDINGS: Abdomen: Liver: Normal in size, shape, and density. No focal lesions, cysts, or masses were identified. Gallbladder and Biliary System: The gallbladder is surgically removed. Pancreas: The pancreatic head, body, and tail are visualized and appear normal in size and density. No pancreatic masses or calcifications were noted. Spleen: Interval new splenic enlargement measuring 13.5 cm. No splenic lesions or masses were identified. Kidneys and Adrenal Glands: Both kidneys are normal in size, shape, and position. Cortical thickness is within normal limits. No renal calculi or hydronephrosis. Adrenal glands are unremarkable. Appendix: The appendix is normal in size without periappendiceal fat stranding and without an appendicolith. No evidence of appendiceal abscess or perforation. Pelvis: Urinary Bladder: Normal in contour and wall thickness. No intraluminal lesions. Uterus: Not seen Ovaries: Decrease in the size of the right adnexal cyst; it now measures 2 cm in diameter compared to 3.4x3.3cm in the prior study. Vagina: Normal in contour and wall thickness. Peritoneal and Retroperitoneal Structures: No free fluid or abnormal fluid collections were identified within the abdomen or pelvis. No lymphadenopathy was noted. Bowel: The visualized bowel loops are normal in caliber and appearance. No evidence of bowel obstruction or wall thickening. Bones and Soft Tissues: Pelvic bones and soft tissues are unremarkable. No fractures or abnormal masses were identified. The scanned lower chest shows a right middle lung lobe nodule with foci of calcifications that measures 9 mm, and other tiny subpleural nodules are seen in both lower lung lobes; the largest measures 4 mm (unchanged). IMPRESSION: 1. No acute intra-abdominal pathology. 2. Interval new splenic enlargement measuring 13.5 cm. 3. Decrease in the size of the right adnexal cyst; it now measures 2 cm in diameter compared to 3.4x3.3cm in the prior study. Likely functional cyst. 4. Unchanged right middle lung lobe nodule with foci of calcifications. Electronically Signed by: Romie King MD. (10/09/2025 17:27:56 EST)
[2025-10-09] MEDS ORDERED: Ketamine HCl 50 MG/ML ONE (18:22)
[2025-10-09] MEDS: Ketamine HCl 50 MG/ML IV ONE (18:24)
[2025-10-09] MEDS ORDERED: Zofran 4 MG/2 ML VIAL ONE (18:30)
[2025-10-09 18:33] VITALS: PULSE 60
[2025-10-09] MEDS: Zofran 4 MG/2 ML VIAL IV STA (18:38)
[2025-10-09 19:03] VITALS: BP 138/73; RESP 15; O2SAT 98
== END 2025-10-09 19:03 | disposition home or self-care (01) ==
LOC: ED 14:50
DX: N39.0 Urinary tract infection, site not specified (principal); R16.1 Splenomegaly, not elsewhere classified; R91.1 Solitary pulmonary nodule; R10.31 Right lower quadrant pain; R11.2 Nausea with vomiting, unspecified; E11.9 Type 2 diabetes mellitus without complications; Z79.899 Other long term (current) drug therapy